=== PATIENT | female | born 1940 | race Caucasian/White ===

== ENCOUNTER → 2019-10-09 10:51 | Outpatient (CLI) | payer MEDICARE, OTHER, SELFPAY ==
--- NOTE | ~2019-10-09 | XR_ITS ---
EXAMINATION: XR foot RT min 3V DATE: 10/09/2019 11:10 INDICATION: Right fifth toe fracture follow-up TECHNIQUE: Dorsoplantar, lateral, and 2 oblique views of the right foot were obtained. COMPARISON: 08/25/2019 FINDINGS: Again seen is an oblique extra-articular fracture of the distal diaphysis of the right fift h proximal phalanx. The alignment is anatomic. There is subtle increase in calcified callus at the fr acture site. Mild adjacent soft tissue swelling is present. There is polyarticular osteoarthritis of the interphalangeal joints and at the first metatarsophalangeal joint. A plantar calcaneal enthesophy te is noted. IMPRESSION: 1. Fracture of the fifth proximal phalanx with routine healing. Reviewed, dictated and finalized at location A. PRODUCTION ASSISTANT
== END ==
PROVIDERS: PCP Family Medicine; Visit Provider Family Medicine
DX: S92.501D Displaced unspecified fracture of right lesser toe(s), subsequent encounter for fracture with routine healing (principal); X58.XXXD Exposure to other specified factors, subsequent encounter
CPT/HCPCS: 73630

== ENCOUNTER 2019-12-07 15:09 | Outpatient (CLI) | payer MEDICARE, OTHER, SELFPAY ==
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
== END 2019-12-07 15:10 | disposition home or self-care (01) ==
LOC: ANHIMG 15:22
PROVIDERS: PCP Family Medicine; Visit Provider Physician Assistant
DX: R42 Dizziness and giddiness (principal); R51 Headache; H53.9 Unspecified visual disturbance
CPT/HCPCS: 70450

== ENCOUNTER 2020-01-01 10:47 | Outpatient (CLI) | payer MEDICARE, OTHER, SELFPAY ==
[2020-01-01 11:17] LABS: Blood Urea Nitrogen 18 mg/dL (7-17); Calcium 9.3 mg/dL (8.4-10.2); Carbon Dioxide 26 mmol/L (22-30); Chloride 104 mmol/L (98-107); Estimated Glomerular Filt Rate > 60; Glucose 176 mg/dL (65-105); Potassium 3.5 mmol/L (3.4-5.0); Sodium 140 mmol/L (137-145)
== END 2020-01-01 10:48 | disposition home or self-care (01) ==
PROVIDERS: Anesthesiology; PCP Family Medicine; Visit Provider Orthopaedic Surgery
DX: E11.9 Type 2 diabetes mellitus without complications (principal)
CPT/HCPCS: 36415; 80048

== ENCOUNTER 2020-01-08 00:01 | Outpatient (CLI) | payer MEDICARE, OTHER, SELFPAY ==
[2020-01-08 17:26] LABS: SARS-CoV-2 RNA PCR Negative
== END 2020-01-08 00:02 | disposition home or self-care (01) ==
LOC: ANHCOVIDDT 00:02
PROVIDERS: PCP Family Medicine; Visit Provider Orthopaedic Surgery
DX: Z01.818 Encounter for other preprocedural examination (principal); Z11.59 Encounter for screening for other viral diseases
CPT/HCPCS: 87635; C9803; U0003

== ENCOUNTER 2020-01-11 00:13 | Day surgery (SDC) | payer MEDICARE, OTHER, SELFPAY ==
[2019-12-31 13:38] VITALS: BMI 27.8
[2020-01-11] VITALS (9 sets, daily range): BP systolic 123–147; BP diastolic 52–77; PULSE 69–95; RESP 13–18; TEMP 36.2–36.4; O2SAT 94–100
--- NOTE | 2020-01-11 08:13 | WPDANESEPPF ---
Anes - Initial Pre Proc Eval Procedure: Operation Date: 01/11/20 12:00 Proposed Procedures p Debridement of Right Trochanteric Bursa - Reinier Moser MD Date/Time: 01/11/20 08:13 Surgeon: Reinier Moser MD Pre Op Diagnosis: Right Hip Trochanter Bursitis Patient Data Age: 79 Gender: F Height: 1.65 m Weight: 75.75 kg Allergies Allergy/AdvReac Type Severity Reaction Status Date / Time dimenhydrinate Allergy Unknown THROAT Verified 01/11/20 10:57 SWELLING iodine Allergy Unknown Rash Verified 01/11/20 10:57 Contrast Media Allergy Intermediate RASH Uncoded 01/11/20 10:57 Home Medications Medication Instructions Recorded Confirmed Type levothyroxine 50 mcg tablet 50 mcg PO DAILY #90 tablet 07/13/19 12/31/19 Rx PreserVision AREDS-2 1 tab-cap PO DAILY 08/16/19 12/31/19 History acetaminophen [Tylenol Arthritis 650 mg PO PRN MDD PAIN 08/16/19 12/31/19 History Pain] amlodipine-atorvastatin 1 tablet PO DAILY 08/16/19 12/31/19 History apixaban [Eliquis] 5 mg PO BID 08/16/19 12/31/19 History glipizide 5 mg PO DAILY 08/16/19 12/31/19 History insulin detemir U-100 [Levemir 14 unit SUBCUT QNOON 08/16/19 12/31/19 History FlexTouch U-100 Insuln] irbesartan 75 mg PO DAILY 08/16/19 12/31/19 History isosorbide mononitrate 60 mg PO DAILY 08/16/19 12/31/19 History metoprolol succinate 25 mg PO DAILY 08/16/19 12/31/19 History nitroglycerin 0.4 mg SUBLINGUAL PRN PRN 08/16/19 12/31/19 History tramadol 50 mg PO Q6H PRN 08/16/19 12/31/19 History escitalopram oxalate 10 mg tablet 10 mg PO DAILY #90 tablet 08/24/19 12/31/19 Rx hydrochlorothiazide 25 mg tablet 25 mg PO DAILY #90 tablet 09/02/19 12/31/19 Rx Patient hx anesthesia problems: none Family hx anesthesia problems: none PMFSH Past Medical History Medical History Afib Anemia Anxiety Arthritis Bladder cancer Bowel obstruction CAD (coronary artery disease) Cataracts, bilateral Chronic right hip pain Closed fracture of proximal phalanx of lesser toe of right foot Depression Diabetes a1c was 7.17 aug 2019 Diverticulitis Dizziness DVT (deep venous thrombosis) Elbow fracture, left GERD (gastroesophageal reflux disease) Headache Heart attack Hemoglobin A1C between 7% and 9% indicating borderline diabetic control Hepatitis A History of blood transfusion History of rectal polyps HTN (hypertension) Hyperlipidemia Hypothyroid IBS (irritable bowel syndrome) Macular degeneration Menieres disease Seasonal allergies Skin cancer Toe fracture Vision changes Surgical History Surgical History (Updated 01/11/20 @ 11:02 by Hemanth Bella MD) H/O local excision of skin lesion History of angioplasty History of appendectomy History of back surgery History of bladder surgery History of brain surgery History of cardiac catheterization History of cataract surgery History of coronary artery stent placement History of coronary artery stent placement History of foot surgery Left History of hernia repair History of hip surgery Right hip abductor repair History of hysterectomy History of ileal conduit History of tonsillectomy Family History Family History Mother Diabetes mellitus Hypertension Family history of coronary artery disease Sibling Diabetes mellitus Hypertension Family history of malignant neoplasm Carcinoma of colon Family history of Alzheimer's disease Family history of malignant neoplasm of bone Family history of coronary artery disease Social History Social History Years smoked: 12 Smoking status: Former smoker Tobacco type: cigarettes Second hand tobacco smoke exposure: No Smoking end date: 08/12/99 Alcohol intake: current Substance use: never Substance use type: does not use Additional living arrangements comments: Spouse- Samir Escobar Gender i
[2020-01-11] MEDS: LACTATED RINGERS 1,000 ML 30 ML IV CONT ×2 (10:30→13:55)
--- NOTE | 2020-01-11 10:36 | WPDHPUPDATE1 ---
History and Physical Update Update Date/Time: 01/11/20 10:36 History and Physical has been reviewed, including an updated exam of the patient. There are NO changes in the patient's condition. Risks, benefits, and alternatives have been discussed and questions answered. Patient agrees to proceed with procedure.
[2020-01-11 11:17] LABS: Glucose Point of Care 166 (65-105)
[2020-01-11] MEDS: ceFAZolin 2 GM/D5W 50 ML 2 GM/50 ML BAG IVPB (12:05)
[2020-01-11] MEDS: BUPIVACAINE/EPINEPHRINE 0.25% 50 ML VIAL INFILTRATE (12:39)
--- NOTE | 2020-01-11 13:29 | PM.PROC ---
Procedure Note - Detailed Date of procedure: 01/11/20 Pre-op diagnosis: Right Hip Trochanter Bursitis Post-op diagnosis: same Procedure performed: Debridement right hip trochanteric bursa Description of procedure: The patient was identified proper site identified. She was taken to the operating room and transferred to the OR table taking care to pad her torso and extremities. After general anesthetic induction and intubation she was positioned in the left lateral decubitus position taking care to pad her torso and extremities. The right hip and thigh were prepped and draped in the usual sterile fashion. The distal portion of her scar was utilized. The subcutaneous tissue was infiltrated with 10 cc of 0.25% Marcaine and epinephrine solution. The incision was reopened and subcutaneous tissue sharply dissected full thickness down to the ITB band which then was divided in line with the incision. There is quite a bit of adherent scar tissue between the anterior band of the greater trochanter. A wound was irrigated with sterile saline solution. The ITB band was reapproximated with 2. Vicryl suture and the sub Q deeper layers with 0 looped PDS. Two 0 strata fix and tissue adhesive used for the skin. Sterile dressing was applied. She tolerated the procedure well was awakened, extubated taken recovery in stable condition; there were no known intraoperative complications. She received perioperative antibiotic. Surgeon: Reinier Moser MD Estimated blood loss (mL): 5 Drains: No Packing: No Pathology: none sent Complications: No immediate complications Condition: stable Disposition: PACU
[2020-01-11 16:56] LABS: Glucose Point of Care 126 (65-105)
== END 2020-01-11 15:10 | disposition home or self-care (01) ==
PROVIDERS: PCP Family Medicine; Visit Provider Orthopaedic Surgery
PROC: (CPT 27299; principal; 2020-01-11 12:00)
DX: M70.61 Trochanteric bursitis, right hip (principal); I48.91 Unspecified atrial fibrillation; I25.10 Atherosclerotic heart disease of native coronary artery without angina pectoris; I10 Essential (primary) hypertension; D64.9 Anemia, unspecified; E11.9 Type 2 diabetes mellitus without complications; E03.9 Hypothyroidism, unspecified; E78.5 Hyperlipidemia, unspecified; F41.8 Other specified anxiety disorders; K58.9 Irritable bowel syndrome, unspecified; Z95.5 Presence of coronary angioplasty implant and graft; Z79.4 Long term (current) use of insulin; Z79.01 Long term (current) use of anticoagulants; Z85.51 Personal history of malignant neoplasm of bladder; Z86.718 Personal history of other venous thrombosis and embolism; Z87.891 Personal history of nicotine dependence
CPT/HCPCS: 27299; J0690; J2405; J2704; J3010; J7120

== ENCOUNTER 2020-03-29 10:21 | Outpatient (CLI) | payer MEDICARE, OTHER, SELFPAY ==
[2020-03-29 11:11] LABS: Hemoglobin A1C 7.9 % (<5.7)
[2020-03-29 11:13] LABS: Alanine Aminotransferase 20 U/L (4-35); Alkaline Phosphatase 64 U/L (38-126); Anion Gap 10 mmol/L (8-16); Aspartate Amino Transferase 24 U/L (14-36); Bilirubin,Total 0.4 mg/dL (0.2-1.3); Blood Urea Nitrogen 24 mg/dL (7-17); Calcium 9.4 mg/dL (8.4-10.2); Carbon Dioxide 24 mmol/L (22-30); Chloride 104 mmol/L (98-107); Estimated Glomerular Filt Rate 60; Glucose 293 mg/dL (65-105); Potassium 3.7 mmol/L (3.4-5.0); Sodium 138 mmol/L (137-145)
== END 2020-03-29 10:22 | disposition home or self-care (01) ==
PROVIDERS: PCP Family Medicine; Visit Provider Physician Assistant
DX: E03.9 Hypothyroidism, unspecified (principal); I10 Essential (primary) hypertension; Z79.4 Long term (current) use of insulin; E11.9 Type 2 diabetes mellitus without complications
CPT/HCPCS: 36415; 80053; 83036; 84443

== ENCOUNTER 2020-05-24 10:24 | Outpatient (CLI) | payer MEDICARE, OTHER, SELFPAY | END 2020-05-24 10:25 | disposition home or self-care (01) | LOC: ANHLAB 10:27 | PROVIDERS: PCP Family Medicine; Visit Provider Physician Assistant | DX: E03.9 Hypothyroidism, unspecified (principal) | CPT/HCPCS: 36415; 84443 ==

== ENCOUNTER 2020-09-14 11:39 | Outpatient (CLI) | payer MEDICARE, OTHER, SELFPAY ==
[2020-09-14 11:59] LABS: Basophils Absolute Auto 0.1 K/mm3 (0.0-0.1); Eosinophils Absolute Auto 0.3 K/mm3 (0-0.3); Eosinophils Percent Auto 3.9 % (0-4.4); Hematocrit 43.3 % (37.0-47.0); Hemoglobin 14.7 g/dL (12.0-15.0); Immature Granulocyte Absolute 0.01 K/mm3 (0.00-0.031); Immature Granulocyte Percent A 0.1 % (0-0.5); Lymphocytes Absolute Auto 1.59 K/mm3 (0.9-3.2); Mean Corpuscular HGB Conc 33.9 g/dl (32-36); Mean Corpuscular Hemoglobin 29.6 pg (26-34); Mean Corpuscular Volume 87.1 fl (80-100); Mean Platelet Volume 9.3 fl (7.4-10.4); Monocytes Absolute Auto 0.4 K/mm3 (0.1-0.6); Monocytes Percent Auto 6.4 % (2.6-8.5); Neutrophils Absolute Auto 4.5 K/mm3 (1.3-6.7); Neutrophils Percent Auto 65.6 % (45.5-73.1); Platelet Count Result 268 k/mm3 (150-375); Red Blood Count 4.97 M/mm3 (4.2-5.4); Red Cell Distribution Width 12.9 % (11.5-14.5); White Blood Count 6.9 K/mm3 (4.5-10.0)
[2020-09-14 12:10] LABS: Anion Gap 9 mmol/L (8-16); Blood Urea Nitrogen 21 mg/dL (7-17); Calcium 9.2 mg/dL (8.4-10.2); Carbon Dioxide 26 mmol/L (22-30); Chloride 105 mmol/L (98-107); Estimated Glomerular Filt Rate 60; Glucose 286 mg/dL (65-105); Potassium 3.9 mmol/L (3.4-5.0); Sodium 140 mmol/L (137-145)
== END 2020-09-14 11:40 | disposition home or self-care (01) ==
LOC: ANHLAB 11:44
PROVIDERS: PCP Family Medicine; Visit Provider Nurse Practitioner Adult Health
DX: R06.00 Dyspnea, unspecified (principal)
CPT/HCPCS: 36415; 80048; 85025

== ENCOUNTER 2020-10-07 11:36 | Outpatient (CLI) | payer MEDICARE, OTHER, SELFPAY ==
[2020-10-07 12:16] LABS: Hemoglobin A1C 8.6 % (<5.7)
[2020-10-07 12:20] LABS: Alanine Aminotransferase 21 U/L (4-35); Albumin Level 4.1 g/dL (3.5-5.1); Alkaline Phosphatase 61 U/L (38-126); Anion Gap 11 mmol/L (8-16); Aspartate Amino Transferase 28 U/L (14-36); Bilirubin,Total 0.7 mg/dL (0.2-1.3); Blood Urea Nitrogen 20 mg/dL (7-17); Carbon Dioxide 25 mmol/L (22-30); Chloride 104 mmol/L (98-107); Estimated Glomerular Filt Rate 53; Glucose 288 mg/dL (65-105); Potassium 3.7 mmol/L (3.4-5.0); Sodium 140 mmol/L (137-145)
== END 2020-10-07 11:37 | disposition home or self-care (01) ==
PROVIDERS: PCP Family Medicine; Visit Provider Physician Assistant
DX: E03.9 Hypothyroidism, unspecified (principal); E11.9 Type 2 diabetes mellitus without complications; I11.9 Hypertensive heart disease without heart failure; Z79.4 Long term (current) use of insulin
CPT/HCPCS: 36415; 80053; 83036; 84443

== ENCOUNTER 2020-11-25 13:36 | Emergency (ER) | payer MEDICARE, OTHER, SELFPAY ==
--- NOTE | ~2020-11-25 | XR_ITS ---
EXAMINATION: XR knee RT 3V EXAM DATE: 11/25/2020 14:12 INDICATION: New onset pain and swelling since this morning. TECHNIQUE: Three projections of the right knee. There is no prior study for comparison. FINDINGS: No evidence osteochondral defect or joint body in the right knee joint. There is mild men iscal chondrocalcinosis. Chondrocalcinosis can be an age related finding, but with other possible santo ologies including CPPD, parathyroid disorders, hemochromatosis, gout. There is mild to moderate prima ry osteoarthritis. There are no acute fractures or dislocations identified. There is no subcutaneous gas. There is sma ll joint effusion. There are no radiopaque foreign bodies. IMPRESSION: 1. Right knee exam without acute osseous findings. 2. Small joint effusion. 3. Chondrocalcinosis. 4. Osteoarthritis. Reviewed, dictated and finalized at location A.
[2020-11-25 13:39] VITALS: BP 149/79; PULSE 88; RESP 16; TEMP 36.6; O2SAT 98
[2020-11-25 15:34] VITALS: PULSE 85; RESP 18; O2SAT 98
[2020-11-25 15:35] VITALS: BP 139/80
--- NOTE | 2020-11-25 15:57 | ED.GENADULT ---
HPI - General Adult General Chief complaint: Extremity Injury, Lower <ANA MARIA Perez Last Filed: 11/25/20 16:03> Stated complaint: R knee pain <ANA MARIA Perez Last Filed: 11/25/20 16:03> Time Seen by Provider: 11/25/20 15:22 <ANA MARIA Perez Last Filed: 11/25/20 16:03> Source: patient and old records reviewed <ANA MARIA Perez Last Filed: 11/25/20 16:03> Mode of arrival: ambulatory <ANA MARIA Perez Last Filed: 11/25/20 16:03> Limitations: no limitations <ANA MARIA Perez Last Filed: 11/25/20 16:03> History of Present Illness HPI narrative: Patient is a 80-year-old female who presented to emergency department for evaluation of right hip and knee pain patient with history of chronic hip and knee pain and low back pain followed by orthopedics primary care and pain specialist patient notes today the pain had increased she has not taken anything for her pain patient on arrival is in no distress presents per private vehicle with her patient denies injury trauma or illness <ANA MARIA Perez Last Filed: 11/25/20 16:03> Related Data Home medications: Home Medications Medication Instructions Recorded Confirmed Eliquis 5 mg PO BID 08/16/19 10/07/20 PreserVision AREDS-2 1 tab-cap PO DAILY 08/16/19 10/07/20 isosorbide mononitrate 60 mg PO DAILY 08/16/19 10/07/20 metoprolol succinate 25 mg PO DAILY 08/16/19 10/07/20 nitroglycerin 0.4 mg SUBLINGUAL PRN PRN 08/16/19 10/07/20 <ANAM ARIA Perez Last Filed: 11/25/20 16:03> Allergies/adverse reactions: Allergies Allergy/AdvReac Type Severity Reaction Status Date / Time dimenhydrinate Allergy Unknown THROAT Verified 11/25/20 15:35 SWELLING iodine Allergy Unknown Rash Verified 11/25/20 15:35 Contrast Media Allergy Intermediate RASH Uncoded 11/25/20 15:35 <ANA MARIA Perez Last Filed: 11/25/20 16:03> Review of Systems Review of Systems: All systems reviewed & are unremarkable except as noted in HPI and below <Talon Maldonado PA-C - Last Filed: 11/25/20 16:03> [facility] Past Medical History Medical History: Medical History (Updated 11/25/20 @ 16:02 by Talon Maldonado PA-C) Afib Anemia Anxiety Arthritis Bladder cancer Bowel obstruction CAD (coronary artery disease) Cataracts, bilateral Chronic right hip pain Closed fracture of proximal phalanx of lesser toe of right foot Depression Diabetes a1c was 7.17 aug 2019 Diverticulitis Dizziness DVT (deep venous thrombosis) Elbow fracture, left GERD (gastroesophageal reflux disease) Headache Heart attack Hemoglobin A1C between 7% and 9% indicating borderline diabetic control Hepatitis A History of blood transfusion History of rectal polyps HTN (hypertension) Hyperlipidemia Hypothyroid IBS (irritable bowel syndrome) Macular degeneration Menieres disease Seasonal allergies Skin cancer Toe fracture Vision changes <Talon Maldonado PA-C - Last Filed: 11/25/20 16:03> Surgical History Surgical History: Surgical History Greater trochanteric bursitis of right hip surgical re-debridement January 2020 H/O local excision of skin lesion History of angioplasty History of appendectomy History of back surgery History of bladder surgery History of brain surgery History of cardiac catheterization History of cataract surgery History of coronary artery stent placement History of coronary artery stent placement History of foot surgery Left History of hernia repair History of hip surgery Right hip abductor repair History of hysterectomy History of ileal conduit History of tonsillectomy <Talon Maldonado PA-C - Last Filed: 11/25/20 16:03> Family History Family History: Family History Mother Diabetes mellitus Hypertension Family history of coronary artery di
[2020-11-25 16:21] VITALS: BP 131/76; PULSE 82; RESP 18; O2SAT 96
[2020-11-25] MEDS: HYDROcodone/acetaminophen (*CRX) 5-325 MG TABLET 1 TAB PO (16:22)
[2020-11-25] MEDS: METAXALONE 800 MG TABLET PO (16:22)
[2020-11-25] MEDS: LIDOCAINE 5% PATCH 1 PATCH TRANSDERM (16:22)
== END 2020-11-25 16:46 | disposition home or self-care (01) ==
PROVIDERS: Emergency Provider Emergency Medicine; PCP Family Medicine
DX: M25.561 Pain in right knee (principal); M25.551 Pain in right hip; I48.91 Unspecified atrial fibrillation; Z79.01 Long term (current) use of anticoagulants; I25.10 Atherosclerotic heart disease of native coronary artery without angina pectoris; E11.9 Type 2 diabetes mellitus without complications; K21.9 Gastro-esophageal reflux disease without esophagitis; I10 Essential (primary) hypertension; E03.9 Hypothyroidism, unspecified; E78.5 Hyperlipidemia, unspecified; H35.30 Unspecified macular degeneration; H81.09 Meniere's disease, unspecified ear; M17.11 Unilateral primary osteoarthritis, right knee; Z85.51 Personal history of malignant neoplasm of bladder; Z85.828 Personal history of other malignant neoplasm of skin; Z86.718 Personal history of other venous thrombosis and embolism; I25.2 Old myocardial infarction; Z87.19 Personal history of other diseases of the digestive system; Z79.4 Long term (current) use of insulin; Z95.5 Presence of coronary angioplasty implant and graft; Z98.49 Cataract extraction status, unspecified eye; Z87.891 Personal history of nicotine dependence; M11.261 Other chondrocalcinosis, right knee
CPT/HCPCS: 73562; 99283; A9270

== ENCOUNTER 2021-07-24 15:02 | Emergency (ER) | payer MEDICARE, OTHER, SELFPAY ==
[2021-07-24 15:16] VITALS: BP 132/82; PULSE 105; RESP 18; TEMP 36.8; O2SAT 100
[2021-07-24 15:18] VITALS: BP 132/82; PULSE 105; RESP 18; TEMP 36.8; O2SAT 100
--- NOTE | 2021-07-24 15:27 | ED.NAVMDI ---
HPI - Nausea/Vomiting/Diarrhea General Chief complaint: Nausea/Vomiting/Diarrhea Stated complaint: Nausea Time Seen by Provider: 07/24/21 15:20 Source: patient, RN notes reviewed and old records reviewed Mode of arrival: ambulatory History of Present Illness HPI Narrative: 80-year-old female presents to the [facility] with 4 to 6 weeks of increasing nausea/ vomiting. Patient states that she tried going out to dinner last night and felt very sick, vomiting. Tried drinking 7-Up this morning and states she was unable to keep that down. She is concerned for kidney issues, dehydration. Patient reports a 20+ lb weight loss Patient appears acute on chronic illness. Patient denies any abdominal pain or chest pain. States she does have chronic right hip pain due to previous surgeries done by her pen. Patient reports that she has brought this up to her doctor a couple of weeks ago and states they did not think anything of it. Related Data Home Medications Medication Instructions Recorded Confirmed Eliquis 5 mg PO BID 08/16/19 02/08/21 PreserVision AREDS-2 1 tab-cap PO DAILY 08/16/19 02/08/21 isosorbide mononitrate 60 mg PO DAILY 08/16/19 02/08/21 metoprolol succinate 25 mg PO DAILY 08/16/19 02/08/21 nitroglycerin 0.4 mg SUBLINGUAL PRN PRN 08/16/19 02/08/21 Allergies Allergy/AdvReac Type Severity Reaction Status Date / Time dimenhydrinate Allergy Unknown THROAT Verified 02/08/21 14:26 SWELLING iodine Allergy Unknown Rash Verified 02/08/21 14:26 Contrast Media Allergy Intermediate RASH Uncoded 02/08/21 14:26 Review of Systems Review of Systems: All systems reviewed & are unremarkable except as noted in HPI and below Constitutional: Constitutional: Reports as per HPI, Denies chills, Reports fatigue, Denies fever(s) and Reports weakness Eyes: Eyes: Reports no additional eye complaints ENT: Reports as per HPI Comments: Very dry mucosa Cardiovascular: Cardiovascular: Reports no additional cardiovascular complaints and Denies chest pain Respiratory: Respiratory: Reports no additional respiratory complaints, Denies cough and Denies dyspnea Gastrointestinal: Gastrointestinal: Reports as per HPI, Denies abdominal pain, Reports nausea and Reports vomiting Genitourinary: Genitourinary: Reports no additional female genitourinary complaints Musculoskeletal: Musculoskeletal: Reports as per HPI and Reports arthralgias (Right hips dates it is chronic) Integumentary/Breasts: Skin/Breast: Reports system reviewed and no additional complaints, except as docu Neurologic: Reports system reviewed and no additional complaints, except as documented Psychiatric: Psychiatric: Reports no additional psychiatric complaints Allergic/Immunologic: Allergic/Immunologic: Reports no additional allergic/immunologic complaints [facility] Past Medical History Medical History (Updated 07/24/21 @ 17:53 by Jemima Philip) Afib Anemia Anxiety Arthritis Bladder cancer Bowel obstruction CAD (coronary artery disease) Cataracts, bilateral Chronic right hip pain Closed fracture of proximal phalanx of lesser toe of right foot Depression Diabetes a1c was 7.17 aug 2019 Diverticulitis Dizziness DVT (deep venous thrombosis) Elbow fracture, left GERD (gastroesophageal reflux disease) Headache Heart attack Hemoglobin A1C between 7% and 9% indicating borderline diabetic control Hepatitis A History of blood transfusion History of rectal polyps HTN (hypertension) Hyperlipidemia Hypothyroid IBS (irritable bowel syndrome) Macular degeneration Menieres disease Seasonal allergies Skin cancer Toe fracture Vision changes Surgical History Surgical History Greater trochanteric bursitis of right hip surgical re-debridement January 2020 H/O local excision of skin lesion History of angioplasty History of appendectomy History of back surgery History of bladder surgery History of brain surgery History of c
[2021-07-24 15:29] LABS: Glucose Point of Care 133 mg/dl (65-105)
== END 2021-07-24 15:30 | disposition home or self-care (01) ==
PROVIDERS: Emergency Provider Nurse Practitioner; PCP Family Medicine
DX: E86.0 Dehydration (principal); R11.2 Nausea with vomiting, unspecified; I48.91 Unspecified atrial fibrillation; I25.10 Atherosclerotic heart disease of native coronary artery without angina pectoris; E03.9 Hypothyroidism, unspecified; E11.9 Type 2 diabetes mellitus without complications; I10 Essential (primary) hypertension; E78.5 Hyperlipidemia, unspecified; Z86.718 Personal history of other venous thrombosis and embolism; Z87.891 Personal history of nicotine dependence
CPT/HCPCS: 82948; 99212; G0463

== ENCOUNTER 2021-07-24 15:50 | Emergency (ER) | payer MEDICARE, OTHER, SELFPAY ==
[2021-07-24] VITALS (12 sets, daily range): BP systolic 102–164; BP diastolic 80–90; PULSE 74–96; RESP 12–25; TEMP 36.3–37.1; O2SAT 89–99
--- NOTE | 2021-07-24 22:25 | ED.GENADULT ---
HPI - General Adult General Chief complaint: Nausea/Vomiting/Diarrhea Stated complaint: Nausea,Vomiting Time Seen by Provider: 07/24/21 22:13 History of Present Illness HPI narrative: 80-year-old female presented to the emergency department for evaluation of intermittent diarrhea for the last month. Patient states that she has also had intermittent nausea vomiting and diarrhea worsening over the last few days. Patient states that have began to improve but she went out to dinner on Saturday. After having a steak dinner on Saturday she began having onset of nausea and vomiting. Patient states she also did have some onset of diarrhea. Patient denies any acute abdominal pain. Patient reports she has had issues with her bowels previously and has had multiple colonoscopies. Related Data Home Medications Medication Instructions Recorded Confirmed Eliquis 5 mg PO BID 08/16/19 02/08/21 PreserVision AREDS-2 1 tab-cap PO DAILY 08/16/19 02/08/21 isosorbide mononitrate 60 mg PO DAILY 08/16/19 02/08/21 metoprolol succinate 25 mg PO DAILY 08/16/19 02/08/21 nitroglycerin 0.4 mg SUBLINGUAL PRN PRN 08/16/19 02/08/21 Allergies Allergy/AdvReac Type Severity Reaction Status Date / Time dimenhydrinate Allergy Unknown THROAT Verified 07/24/21 22:39 SWELLING iodine Allergy Unknown Rash Verified 07/24/21 22:39 Contrast Media Allergy Intermediate RASH Uncoded 07/24/21 22:39 Review of Systems Review of Systems: CONSTITUTIONAL: Denies fever, chills, or sweats. EYES: Denies visual changes, redness, or discharge. ENT: Denies rhinorrhea, congestion, sore throat, or otalgia. CARDIOVASCULAR: Denies chest pain, palpitations, or edema. RESPIRATORY: Denies cough or dyspnea. GASTROINTESTINAL: Nausea vomiting diarrhea GENITOURINARY: Denies dysuria or hematuria. SKIN: Denies rash or itching. MUSCULOSKELETAL: Denies back pain, joint pain, or myalgia. NEUROLOGIC: Denies headache, numbness, or weakness. PSYCHIATRIC: Denies anxiety or depression. [facility] Past Medical History Medical History (Updated 07/26/21 @ 00:00 by Background Daemon) Afib Anemia Anxiety Arthritis Bladder cancer Bowel obstruction CAD (coronary artery disease) Cataracts, bilateral Chronic right hip pain Closed fracture of proximal phalanx of lesser toe of right foot Depression Diabetes a1c was 7.17 aug 2019 Diverticulitis Dizziness DVT (deep venous thrombosis) Elbow fracture, left GERD (gastroesophageal reflux disease) Headache Heart attack Hemoglobin A1C between 7% and 9% indicating borderline diabetic control Hepatitis A History of blood transfusion History of rectal polyps HTN (hypertension) Hyperlipidemia Hypothyroid IBS (irritable bowel syndrome) Macular degeneration Menieres disease Seasonal allergies Skin cancer Toe fracture Vision changes Surgical History Surgical History Greater trochanteric bursitis of right hip surgical re-debridement January 2020 H/O local excision of skin lesion History of angioplasty History of appendectomy History of back surgery History of bladder surgery History of brain surgery History of cardiac catheterization History of cataract surgery History of coronary artery stent placement History of coronary artery stent placement History of foot surgery Left History of hernia repair History of hip surgery Right hip abductor repair History of hysterectomy History of ileal conduit History of tonsillectomy Family History Family History Mother Diabetes mellitus Hypertension Family history of coronary artery disease Sibling Diabetes mellitus Hypertension Family history of malignant neoplasm Carcinoma of colon Family history of Alzheimer's disease Family history of malignant neoplasm of bone Family history of coronary artery disease Social History Social History (Reviewed 11/25/20 @ 16:00 by Talon Maldonado
[2021-07-24 22:39] LABS: Basophils Absolute Auto 0.1 K/mm3 (0.0-0.1); Basophils Percent Auto 0.8 % (0.2-1.2); Eosinophils Absolute Auto 0.3 K/mm3 (0-0.3); Eosinophils Percent Auto 3.4 % (0-4.4); Hematocrit 44.1 % (37.0-47.0); Hemoglobin 14.5 g/dL (12.0-15.0); Immature Granulocyte Absolute 0.03 K/mm3 (0.00-0.031); Immature Granulocyte Percent A 0.3 % (0-0.5); Lymphocytes Percent Auto 21.3 % (18.3-44.2); Mean Corpuscular HGB Conc 32.9 g/dl (32-36); Mean Corpuscular Hemoglobin 29.9 pg (26-34); Mean Corpuscular Volume 90.9 fl (80-100); Mean Platelet Volume 9.6 fl (7.4-10.4); Monocytes Absolute Auto 0.8 K/mm3 (0.1-0.6); Monocytes Percent Auto 8.4 % (2.6-8.5); Neutrophils Absolute Auto 5.9 K/mm3 (1.3-6.7); Neutrophils Percent Auto 65.8 % (45.5-73.1); Platelet Count Result 275 k/mm3 (150-375); Red Blood Count 4.85 M/mm3 (4.2-5.4); Red Cell Distribution Width 14.1 % (11.5-14.5); White Blood Count 8.9 K/mm3 (4.5-10.0)
[2021-07-24 22:50] LABS: Lactic Acid Reflex 1.2 mmol/L (0.7-2.1)
[2021-07-24 22:51] LABS: Anion Gap 14 mmol/L (8-16); Carbon Dioxide 15 mmol/L (22-30); Chloride 113 mmol/L (98-107); Potassium 3.8 mmol/L (3.4-5.0); Sodium 142 mmol/L (137-145)
[2021-07-24 22:52] LABS: Alanine Aminotransferase 19 U/L (4-35); Albumin Level 4.7 g/dL (3.5-5.1); Alkaline Phosphatase 75 U/L (38-126); Aspartate Amino Transferase 31 U/L (14-36); Bilirubin,Total 0.8 mg/dL (0.2-1.3); Blood Urea Nitrogen 30 mg/dL (7-17); Calcium 10.2 mg/dL (8.4-10.2); Estimated CRCL calculation 32 ml/min; Estimated Glomerular Filt Rate 48; Glucose 140 mg/dL (65-110)
[2021-07-24] MEDS: ONDANSETRON INJ 4 MG/2 ML VIAL IV PUSH (23:03)
--- NOTE | 2021-07-24 23:26 | PC.NURSE ---
Pt attempting PO challenge with crackers and water at this time.
--- NOTE | 2021-07-24 23:32 | PC.NURSE ---
urine collected and sent from ileal conduit
--- NOTE | 2021-07-24 23:47 | PC.NURSE ---
PO challenge successful, no nausea vomiting
[2021-07-24 23:49] LABS: Add Urine Microscopic? YES; Appearance Urine Cloudy (Clear); Bacteria Urine Trace /hpf; Bilirubin Urine Negative (Negative); Blood Urine 1+ (Negative); Budding Yeast Urine Present /hpf; Color Urine Red (Yellow); Glucose Urine UA Negative (Negative); Ketones Urine Negative (Negative); Leukocyte Esterase Ur 2+ LEU/UL (Negative); Mucus Urine Moderate /lpf; Nitrate Urine Negative (Negative); Protein Urine 1+ mg/dL (Negative); Specific Grav Ur 1.009 (1.001-1.035); Squamous Epithelial Cell Urine Rare /hpf (Few); Urobilinogen Urine Negative mg/dL (<2.0); WBC Urine >75 /hpf
[2021-07-25 00:01] VITALS: BP 149/77; PULSE 81; RESP 18; O2SAT 95
[2021-07-25 01:00] VITALS: BP 134/78; PULSE 82; RESP 20; O2SAT 96
[2021-07-25] MEDS: CEPHALEXIN 250 MG CAPSULE PO (01:42)
[2021-07-25 01:47] VITALS: BP 134/77; PULSE 93; RESP 14; O2SAT 98
== END 2021-07-25 01:47 | disposition home or self-care (01) ==
PROVIDERS: Emergency Provider Emergency Medicine; PCP Family Medicine
DX: B37.49 Other urogenital candidiasis (principal); R11.2 Nausea with vomiting, unspecified; I48.91 Unspecified atrial fibrillation; I25.10 Atherosclerotic heart disease of native coronary artery without angina pectoris; E11.9 Type 2 diabetes mellitus without complications; K21.9 Gastro-esophageal reflux disease without esophagitis; I10 Essential (primary) hypertension; E03.9 Hypothyroidism, unspecified; E78.5 Hyperlipidemia, unspecified; H35.30 Unspecified macular degeneration; H81.09 Meniere's disease, unspecified ear; M17.11 Unilateral primary osteoarthritis, right knee; I25.2 Old myocardial infarction; Z95.5 Presence of coronary angioplasty implant and graft; Z79.4 Long term (current) use of insulin; Z98.49 Cataract extraction status, unspecified eye; Z85.51 Personal history of malignant neoplasm of bladder; Z86.718 Personal history of other venous thrombosis and embolism; Z87.19 Personal history of other diseases of the digestive system; Z87.891 Personal history of nicotine dependence
CPT/HCPCS: 36415; 80053; 81001; 82948; 83605; 85025; 87077; 87086; 87186; 96374; 99284; A9270; J2405

== ENCOUNTER 2021-07-31 14:54 | Outpatient (CLI) | payer MEDICARE, OTHER, SELFPAY ==
[2021-07-31 15:48] LABS: Alanine Aminotransferase 20 U/L (4-35); Albumin Level 4.7 g/dL (3.5-5.1); Alkaline Phosphatase 83 U/L (38-126); Anion Gap 19 mmol/L (8-16); Aspartate Amino Transferase 24 U/L (14-36); Bilirubin,Total 0.6 mg/dL (0.2-1.3); Blood Urea Nitrogen 25 mg/dL (7-17); Calcium 10.4 mg/dL (8.4-10.2); Carbon Dioxide 15 mmol/L (22-30); Chloride 104 mmol/L (98-107); Estimated Glomerular Filt Rate 43; Glucose 170 mg/dL (65-110); Hemoglobin A1C 6.8 % (<5.7); Potassium 3.1 mmol/L (3.4-5.0); Sodium 138 mmol/L (137-145)
[2021-07-31 16:56] LABS: Add Urine Microscopic? YES; Appearance Urine Clear (Clear); Bacteria Urine Trace /hpf; Bilirubin Urine Negative (Negative); Blood Urine 1+ (Negative); Color Urine Yellow (Yellow); Glucose Urine UA Negative (Negative); Ketones Urine Negative (Negative); Leukocyte Esterase Ur Trace LEU/UL (Negative); Mucus Urine Rare /lpf; Nitrate Urine Negative (Negative); Protein Urine 1+ mg/dL (Negative); Specific Grav Ur 1.009 (1.001-1.035); Urobilinogen Urine Negative mg/dL (<2.0)
== END 2021-07-31 14:55 | disposition home or self-care (01) ==
LOC: ANHLAB 14:57
PROVIDERS: PCP Family Medicine; Visit Provider Family Medicine
DX: N39.0 Urinary tract infection, site not specified (principal); E11.9 Type 2 diabetes mellitus without complications
CPT/HCPCS: 36415; 80053; 81001; 83036

== ENCOUNTER 2021-08-04 08:14 | Outpatient (CLI) | payer MEDICARE, OTHER, SELFPAY ==
--- NOTE | ~2021-08-04 | US_ITS ---
EXAMINATION: US abdomen limited DATE: 08/04/2021 08:53 INDICATION: Right upper quadrant abdominal pain. Vomiting. TECHNIQUE: Multiple grayscale and Doppler ultrasound images of the abdomen were obtained. COMPARISON: Ultrasound 06/16/2018 FINDINGS: The visualized portions of the head, body, and tail of the pancreas are normal. The liver i s normal without focal lesion. No liver surface nodularity. There is normal flow in main portal vein. The gallbladder is normal in size. No gallstones or gallbladder wall thickening. There was no sonogr aphic Lopez sign. The common duct is normal and measures 5 mm. IMPRESSION: 1. Normal right upper quadrant ultrasound. Reviewed, dictated and finalized at location A. SIFICATION CASE MANAGER
== END 2021-08-04 08:15 | disposition home or self-care (01) ==
LOC: ANHIMG 08:16
PROVIDERS: PCP Family Medicine; Visit Provider Family Medicine
DX: R10.11 Right upper quadrant pain (principal); R11.0 Nausea
CPT/HCPCS: 76705

== ENCOUNTER 2021-08-21 09:24 | Outpatient (CLI) | payer MEDICARE, OTHER, SELFPAY ==
--- NOTE | ~2021-08-21 | NM_ITS ---
EXAMINATION: NM hepatobiliary wo pharm DATE: 08/21/2021 13:22 INDICATION: Right upper quadrant abdominal pain. COMPARISON: Ultrasound 08/04/2021 TECHNIQUE: 4.1 mCi Tc-99m mebrofenin (Choletec) was administered intravenously. Scintigraphic images of the abdomen were obtained for one hour. Then, the patient drank 8 oz Ensure, and imaging was cont inued for 60 minutes. FINDINGS: There is normal clearance of radiotracer from the blood pool. There is homogeneous tracer u ptake by the liver. Activity progresses to the bowel and gallbladder. Gallbladder ejection fraction (GBEF) was 34%. Note that with this technique, normal GBEF >= 33%. IMPRESSION: 1. Normal hepatobiliary scintigraphy. Reviewed, dictated and finalized at location B. P LAB TECHNICIAN
== END 2021-08-21 09:25 | disposition home or self-care (01) ==
PROVIDERS: PCP Family Medicine; Visit Provider Family Medicine
DX: R10.11 Right upper quadrant pain (principal)
CPT/HCPCS: 78226; A9537

== ENCOUNTER 2021-09-20 01:21 | Day surgery (SDC) | payer MEDICARE, OTHER, SELFPAY ==
[2021-08-31 14:17] VITALS: BMI 24.9
--- NOTE | 2021-09-13 10:33 | SUR.PREOP ---
Pt re-scheduled due to weather. She was originally scheduled for Sep 14. I instructed her to resume her ELiquist today and to stop it on SaturdaySep 17. Patient voiced understanding.
[2021-09-20 09:50] LABS: Glucose Point of Care 143 mg/dl (65-105)
[2021-09-20 09:53] VITALS: BP 118/68; PULSE 66; RESP 19; TEMP 36.4; O2SAT 97
[2021-09-20] MEDS: LACTATED RINGERS 1,000 ML 150 ML IV CONT (10:02)
--- NOTE | 2021-09-20 10:26 | WPDGICN ---
Assessment and Plan Assessment and plan (1) Nausea and vomiting: Code(s): R11.2 - Nausea with vomiting, unspecified Status: Acute Assessment and Plan: EGD with possible biopsy or dilatation or cautery. (2) Greater trochanteric bursitis of right hip: Code(s): M70.61 - Trochanteric bursitis, right hip Status: Acute Assessment and Plan: she states that when she has hip pain which she has been having lately that it will often cause her to be nauseated. (3) Weight loss: Code(s): R63.4 - Abnormal weight loss Status: Acute Assessment and Plan: she believes she has lost at least 15 lb since this began in June. (4) Diarrhea: Code(s): R19.7 - Diarrhea, unspecified Status: Acute Assessment and Plan: In June and July she was having quite a bit of diarrhea but that has resolved GI Consult Note Consult date/time: 09/20/21 10:26 HPI: Britney Escobar is a 80 year old female was referred for investigation of nausea and vomiting. This actually began in July. She had gone to the emergency room with complaints of nausea vomiting and diarrhea. She was examined with ultrasound which was normal. She in fact had a subsequent HIDA scan in nuclear medicine that also was normal. her hip had flared up. She has chronic bursitis in the right hip and she states that often she will get nauseated when she is having pain. She is also having diarrhea when she was nauseated but that has subsided. Review of Systems Review of Systems: All systems reviewed & are unremarkable except as noted in HPI and below PMFSH Past Medical History Medical History (Updated 09/20/21 @ 10:56 by Cristobal Sánchez MD) Afib Anemia Anxiety Arthritis Bladder cancer Bowel obstruction CAD (coronary artery disease) Cataracts, bilateral Chronic right hip pain Closed fracture of proximal phalanx of lesser toe of right foot Depression Diabetes a1c was 7.17 aug 2019 Diverticulitis Dizziness DVT (deep venous thrombosis) Elbow fracture, left GERD (gastroesophageal reflux disease) Headache Heart attack Hemoglobin A1C between 7% and 9% indicating borderline diabetic control Hepatitis A History of blood transfusion History of rectal polyps HTN (hypertension) Hyperlipidemia Hypothyroid IBS (irritable bowel syndrome) Macular degeneration Menieres disease Seasonal allergies Skin cancer Toe fracture Vision changes Surgical History Surgical History Greater trochanteric bursitis of right hip surgical re-debridement January 2020 H/O local excision of skin lesion History of angioplasty History of appendectomy History of back surgery History of bladder surgery History of brain surgery History of cardiac catheterization History of cataract surgery History of coronary artery stent placement History of coronary artery stent placement History of foot surgery Left History of hernia repair History of hip surgery Right hip abductor repair History of hysterectomy History of ileal conduit History of tonsillectomy Family History Family History Mother Diabetes mellitus Hypertension Family history of coronary artery disease Sibling Diabetes mellitus Hypertension Family history of malignant neoplasm Carcinoma of colon Family history of Alzheimer's disease Family history of malignant neoplasm of bone Family history of coronary artery disease Social History Social History Years smoked: 12 Smoking status: Former smoker Tobacco type: cigarettes Second hand tobacco smoke exposure: No Smoking end date: 08/12/99 Alcohol intake: current Alcohol use details: holidays Substance use: never Substance use type: does not use Living arrangements: alone Additional living arrangements comments: Spouse-
--- NOTE | 2021-09-20 11:02 | WPDANESEPPF ---
Anes - Initial Pre Proc Eval Procedure: Operation Date: 09/20/21 11:00 Proposed Procedures p Esophagogastroduodenoscopy - Cristobal Sánchez MD Date/Time: 09/20/21 11:02 Surgeon: Cristobal Sánchez MD Pre Op Diagnosis: nausea, vomiting Patient Data Age: 80 Gender: F Height: 1.65 m Weight: 69 kg Last Vital Signs Temp 97.6 F 09/20/21 09:53 Pulse 66 09/20/21 09:53 Resp 19 09/20/21 09:53 BP 118/68 09/20/21 09:53 Pulse Ox 97 09/20/21 09:53 Allergies Allergy/AdvReac Type Severity Reaction Status Date / Time dimenhydrinate Allergy Unknown THROAT Verified 09/20/21 09:51 SWELLING iodine Allergy Unknown Rash Verified 09/20/21 09:51 Contrast Media Allergy Intermediate RASH Uncoded 09/20/21 09:51 Home Medications Medication Instructions Recorded Confirmed Type Eliquis 5 mg PO BID 08/16/19 09/20/21 History PreserVision AREDS-2 1 tab-cap PO DAILY 08/16/19 09/20/21 History isosorbide mononitrate 60 mg PO DAILY 08/16/19 09/20/21 History metoprolol succinate 25 mg PO DAILY 08/16/19 09/20/21 History nitroglycerin 0.4 mg SUBLINGUAL PRN PRN 08/16/19 08/31/21 History escitalopram oxalate 10 mg tablet 10 mg PO DAILY #90 tablet 05/20/20 09/20/21 Rx pen needle, diabetic 32 gauge x #200 ea 07/04/20 08/31/21 Rx 1/4 gabapentin 300 mg capsule 300 mg PO QHS #30 cap 10/07/20 09/20/21 Rx levothyroxine 50 mcg capsule 50 mcg PO DAILY #1 cap 10/10/20 09/20/21 Rx blood-glucose meter,continuous #1 ea 10/25/20 08/31/21 Rx blood-glucose sensor #3 each 10/25/20 08/31/21 Rx blood-glucose transmitter #1 each 10/25/20 08/31/21 Rx lidocaine 1 patch TOPICAL DAILY #1 ea 11/25/20 09/20/21 Rx metaxalone [Skelaxin] 800 mg PO TID PRN #7 tablet 11/25/20 09/20/21 Rx hydrochlorothiazide 25 mg tablet See Rx Instructions .ROUTE 12/02/20 09/20/21 Rx .COMPLEX #90 tablet glipizide 5 mg tablet See Rx Instructions .ROUTE 12/27/20 09/20/21 Rx .COMPLEX #90 tablet blood sugar diagnostic #50 ea 01/26/21 08/31/21 Rx cephalexin 250 mg PO Q8H 7 Days #21 cap 07/25/21 09/20/21 Rx fluconazole 100 mg PO DAILY #14 tablet 07/25/21 09/20/21 Rx amlodipine 10 mg-atorvastatin 40 1 tablet PO DAILY #90 tablet 08/07/21 09/20/21 Rx mg tablet hydrochlorothiazide 25 mg PO DAILY 08/31/21 09/20/21 History triamcinolone acetonide 1 applic TOPICAL DAILY PRN 08/31/21 09/20/21 History Laboratory Tests 09/20/21 09:46 POC Capillary Glucose 143 mg/dl H mg/dl (65-105) Patient hx anesthesia problems: none Family hx anesthesia problems: none Results Review: All pre-operative results and documents have been reviewed as part of the pre-operative evaluation. [facility] Past Medical History Medical History (Updated 09/20/21 @ 10:56 by Cristobal Sánchez MD) Afib Anemia Anxiety Arthritis Bladder cancer Bowel obstruction CAD (coronary artery disease) Cataracts, bilateral Chronic right hip pain Closed fracture of proximal phalanx of lesser toe of right foot Depression Diabetes a1c was 7.17 aug 2019 Diverticulitis Dizziness DVT (deep venous thrombosis) Elbow fracture, left GERD (gastroesophageal reflux disease) Headache Heart attack Hemoglobin A1C between 7% and 9% indicating borderline diabetic control Hepatitis A History of blood transfusion History of rectal polyps HTN (hypertension) Hyperlipidemia Hypothyroid IBS (irritable bowel syndrome) Macular degeneration Menieres disease Seasonal allergies Skin cancer Toe fracture Vision changes Surgical History Surgical History Greater trochanteric bursitis of right hip surgical re-debridement January 2020 H/O local excision of skin lesion History of angioplasty History of appendectomy History of back surgery History of bladder surgery History of brain surgery History of cardiac catheterization History of cataract surgery History of coronary artery stent placement History of coronary artery stent placement History of foot surgery Lef
[2021-09-20 11:18] VITALS: BP 82/49; PULSE 68; RESP 20; O2SAT 97
[2021-09-20 11:28] VITALS: BP 122/72; PULSE 65; RESP 15; O2SAT 98
[2021-09-20 11:38] VITALS: BP 126/72; PULSE 62; RESP 16; O2SAT 98
== END 2021-09-20 11:55 | disposition home or self-care (01) ==
PROVIDERS: PCP Family Medicine; Visit Provider Internal Medicine Gastroenterology
PROC: 0DJ08ZZ Inspection of Upper Intestinal Tract, Via Natural or Artificial Opening Endoscopic (ICD-10-PCS; CPT 43235; principal; 2021-09-20 11:00)
DX: K21.00 Gastro-esophageal reflux disease with esophagitis, without bleeding (principal); M70.61 Trochanteric bursitis, right hip; R63.4 Abnormal weight loss; R19.7 Diarrhea, unspecified; I48.91 Unspecified atrial fibrillation; I25.10 Atherosclerotic heart disease of native coronary artery without angina pectoris; E11.9 Type 2 diabetes mellitus without complications; I25.2 Old myocardial infarction; I10 Essential (primary) hypertension; D64.9 Anemia, unspecified; F41.8 Other specified anxiety disorders; E78.5 Hyperlipidemia, unspecified; E03.9 Hypothyroidism, unspecified; K58.9 Irritable bowel syndrome, unspecified; B15.9 Hepatitis A without hepatic coma; Z95.5 Presence of coronary angioplasty implant and graft; Z87.891 Personal history of nicotine dependence; Z79.01 Long term (current) use of anticoagulants; Z79.84 Long term (current) use of oral hypoglycemic drugs; Z68.25 Body mass index [BMI] 25.0-25.9, adult
CPT/HCPCS: 43239; 82948; 87081; J2704; J7120

== ENCOUNTER → 2021-10-10 15:53 | Outpatient (CLI) | payer MEDICARE, OTHER, SELFPAY ==
--- NOTE | ~2021-10-10 | XR_ITS ---
XR lumbar spine 2-3V DATE: 10/10/2021 16:38 INDICATION: Right hip pain TECHNIQUE: AP, lateral, coned lateral lumbosacral views COMPARISON: None FINDINGS: There is approximately 24 degrees rotatory levoscoliosis of the lumbar spine, with associat ed severe degenerative disc disease at L2-3 and L3-4 especially, moderate degenerative disc disease a t L1-2, L4-5 and L5-S1. No fracture or bone destruction is evident. The included lower thoracic and lumbar pedicles appear in tact. The sacroiliac joints appear normal. Multiple coils and surgical clips overlie the abdomen and pelvis. IMPRESSION: Rotatory levoscoliosis and multilevel degenerative disc disease, moderately severe at L2- L3 4 Reviewed, dictated and finalized at location A. SETTER/DRIVER IMPRESSION: Rotatory levoscoliosis and multilevel degenerative disc disease, mo derately severe at L2-L3 4
--- NOTE | ~2021-10-10 | XR_ITS ---
XR hip BI 2V w AP pelvis DATE: 10/10/2021 16:38 INDICATION: Right hip pain TECHNIQUE: AP pelvis. AP and lateral views of each hip. COMPARISON: None FINDINGS: There is diffuse osteopenia. There is levoscoliosis and multilevel degenerative disease of the lumbar spine. The pubic symphysis and sacroiliac joints are intact. No fracture or dislocation, avascular necrosis or bone destruction of either hip is evident. There ar e 2 anchor devices at the right greater trochanter. There is chondrocalcinosis at the left hip. There is bilateral moderate hip osteoarthritis. Multiple surgical clips overlie the right lower quadrant and bilateral pelvis. Status post abdominal wall hernia repair. Extensive calcification of the abdominal aorta, iliac arteries as well as some femoral artery calcifi cations. IMPRESSION: Diffuse osteopenia Levoscoliosis and multilevel degenerative disc disease Moderate bilateral hip arthritis Left hip chondrocalcinosis Reviewed, dictated and finalized at location A. NE RESOURCE ECONOMIST
== END ==
PROVIDERS: PCP Family Medicine; Visit Provider Family Medicine
DX: M25.551 Pain in right hip (principal); M41.9 Scoliosis, unspecified; M47.819 Spondylosis without myelopathy or radiculopathy, site unspecified; M16.0 Bilateral primary osteoarthritis of hip; M11.252 Other chondrocalcinosis, left hip; M47.817 Spondylosis without myelopathy or radiculopathy, lumbosacral region
CPT/HCPCS: 72100; 73521

== ENCOUNTER → 2021-10-19 13:42 | Outpatient (CLI) | payer MEDICARE, OTHER, SELFPAY ==
--- NOTE | ~2021-10-19 | MR_ITS ---
EXAMINATION: MR lumbar spine wo con DATE: 10/19/2021 15:05 INDICATION: Lumbar radiculopathy. TECHNIQUE: Magnetic resonance imaging (MRI) of the lumbar spine was performed without intravenous con trast. Sequences included sagittal T2-weighted FSE, sagittal T2-weighted FS FSE, sagittal T1-weighted FSE, and axial T2-weighted FSE. COMPARISON: Lumbar spine MRI 03/02/2014 FINDINGS: There is 25 degrees levoscoliosis of lumbar spine. There is 5 mm retrolisthesis of L2 on L3 and 4 mm retrolisthesis of L3 on L4. Vertebral body heights are normal. There is severely decreased disc height at L2-L3 and L3-L4, moderately decreased disc height at L4-L5, and severely decreased dis c height at L5-S1. The distal spinal cord signal intensity is normal. The conus medullaris is at L1. The following disc levels are specifically discussed: L1-L2: The disc is mildly bulging. There is mild right and moderate left facet joint osteoarthritis. There is mild left neural foraminal stenosis. There is mild central canal stenosis. L2-L3: The disc is bulging and has an annular fissure. There is mild bilateral facet joint osteoarthr itis. There is moderate right and mild left neural foraminal stenosis. There is mild central canal st enosis. L3-L4: The disc is bulging and has an annular fissure. There is severe bilateral facet joint osteoart hritis. There is moderate bilateral neural foraminal stenosis. There is mild central canal stenosis w ith posterior decompression. L4-L5: The disc is bulging as an annular fissure. There is severe bilateral facet joint osteoarthriti s. There is mild right and moderate left neural foraminal stenosis. There is mild central canal steno sis with posterior decompression. L5-S1: The disc is bulging and has an annular fissure. There is mild right and severe left facet join t osteoarthritis. There is mild right and moderate left neural foraminal stenosis. There is mild cent ral canal stenosis. IMPRESSION: 1. Severe lumbar spondylosis, worsened from 03/02/2014. 2. Lumbar levoscoliosis. Reviewed, dictated and finalized at location A. US CONTROLLER
== END ==
PROVIDERS: Visit Provider Nurse Practitioner Adult Health
DX: M47.27 Other spondylosis with radiculopathy, lumbosacral region (principal); M48.07 Spinal stenosis, lumbosacral region; M41.9 Scoliosis, unspecified
CPT/HCPCS: 72148

== ENCOUNTER → 2021-12-25 14:11 | Outpatient (CLI) | payer MEDICARE, OTHER, SELFPAY ==
--- NOTE | ~2021-12-25 | XR_ITS ---
XR shoulder RT min 2V 12/25/2021 14:32 Indication: Right shoulder pain Procedure: 4 views right shoulder Comparison: No prior studies for comparison. Findings: There is moderate osteoarthritis of the acromioclavicular joint. No acute fracture or traum atic malalignment. No significant soft tissue abnormality. No radiopaque foreign bodies. Impression: 1: Moderate osteoarthritis of the right acromioclavicular joint. Reviewed, dictated and finalized at location A. Impression: 1: Moderate osteoarthritis of the right acromioclavicular joint.
== END ==
PROVIDERS: PCP Family Medicine; Visit Provider Nurse Practitioner Family
DX: M19.011 Primary osteoarthritis, right shoulder (principal)
CPT/HCPCS: 73030

== ENCOUNTER → 2022-01-02 11:26 | Outpatient (CLI) | payer MEDICARE, OTHER, SELFPAY ==
--- NOTE | ~2022-01-02 | MR_ITS ---
EXAMINATION: MR thoracic spine wo con DATE: 01/02/2022 12:03 INDICATION: Mid to low back pain. TECHNIQUE: Magnetic resonance imaging (MRI) of the thoracic spine was performed without intravenous c ontrast. Sagittal localizer T1-weighted FSE of the cervical spine was obtained. Thoracic spine sequen lakshmi included sagittal T2-weighted FSE, sagittal T1-weighted FSE, sagittal T2-weighted FS FSE, and axi al T2-weighted FSE. COMPARISON: Lumbar spine MRI 10/19/2021 FINDINGS: There is 12 degrees levoscoliosis of upper thoracic spine. There is 2 mm anterolisthesis of T1 on T2. There is a chronic compression fracture of T3 with less than 1/5 loss of height. There is mildly decreased disc height at T3-T4. There are central extrusions from T5-T6 through T9-T10 with mi ld central canal stenosis. There is a central protrusion at T10-T11 with mild central canal stenosis. There is multilevel facet joint osteoarthritis, severe at many levels. On the right, there is mild n eural foraminal stenosis at T2-T3, T3-T4, T4-T5, T5-T6, T7-T8, T8-T9, T9-T10, and T10-T11. On the lef t, there is mild neural foraminal stenosis at T7-T8, T8-T9, T9-T10, and T10-T11. The spinal cord sign al intensity is normal. The conus medullaris is at L1. IMPRESSION: 1. Mild thoracic spondylosis. 2. Upper thoracic levoscoliosis. Reviewed, dictated and finalized at location A.
== END ==
PROVIDERS: PCP Nurse Practitioner Family; Visit Provider Nurse Practitioner Family
DX: M47.814 Spondylosis without myelopathy or radiculopathy, thoracic region (principal); M48.04 Spinal stenosis, thoracic region; M41.9 Scoliosis, unspecified
CPT/HCPCS: 72146

== ENCOUNTER 2022-02-16 09:31 | Emergency (ER) | payer MEDICARE, OTHER, SELFPAY ==
--- NOTE | ~2022-02-16 | XR_ITS ---
[[id number] ] INDICATION: Right rib pain TECHNIQUE: Frontal projection of the upper right ribs, frontal projection of the lower right ribs, ob lique projection of all the right ribs, frontal inspiratory chest x-ray for interpretation. FINDINGS: There are no acute displaced rib fractures identified. There is a healed right fourth rib fracture. There are no soft tissue abnormality seen. The lungs are clear. There is severe lumbar sp ondylosis with levoscoliosis. There is atherosclerosis of the aorta. Bibasilar atelectasis. IMPRESSION: 1:No acute displaced rib fractures. Reviewed, dictated and finalized at location A.
[2022-02-16 09:43] VITALS: BP 128/62; PULSE 67; RESP 16; TEMP 36.6; O2SAT 99
--- NOTE | 2022-02-16 09:55 | ED.GENADULT ---
HPI - General Adult General Chief complaint: Unspecified Stated complaint: right side pain Time Seen by Provider: 02/16/22 09:55 History of Present Illness HPI narrative: Britney Escobar is a 81 yo female with a PMH of HTN, anticoagulation, depression,diabetes, hypothyroid,GERD, glaucoma, who comes to [facility] with complaints of right-sided rib pain after bending over a railing to pull weeds yesterday. Related Data Home Medications Medication Instructions Recorded Confirmed PreserVision AREDS-2 1 tab-cap PO DAILY 08/16/19 02/16/22 apixaban 5 mg tablet (Eliquis) 5 mg PO BID 08/16/19 02/16/22 metoprolol succinate 25 mg 25 mg PO DAILY 08/16/19 02/16/22 tablet,extended release 24 hr nitroglycerin 0.4 mg sublingual 0.4 mg sublingual PRN PRN Chest 08/16/19 02/16/22 tablet Pain triamcinolone acetonide 0.1 % 1 applic topical DAILY PRN Pain 08/31/21 02/16/22 topical cream empagliflozin 25 mg tablet 25 mg DIRECTED 02/16/22 02/16/22 (Jardiance) irbesartan 75 mg tablet 1 tablet DAILY 02/16/22 02/16/22 Allergies Allergy/AdvReac Type Severity Reaction Status Date / Time dimenhydrinate Allergy Unknown THROAT Verified 02/16/22 10:07 SWELLING iodine Allergy Unknown Rash Verified 02/16/22 10:07 Contrast Media Allergy Intermediate RASH Uncoded 02/16/22 10:07 Review of Systems Review of Systems: CONSTITUTIONAL: Denies fever, chills, sweats. EYES: Denies visual changes, redness, discharge. ENT: Denies rhinorrhea, congestion, sore throat, otalgia. CARDIOVASCULAR: Denies chest pain, palpitations, edema. RESPIRATORY: Denies dyspnea, wheezing, cough GASTROINTESTINAL: Denies abdominal pain, nausea, vomiting, diarrhea. GENITOURINARY: Denies dysuria, hematuria, abnormal discharge SKIN: Denies rash or itching. NEUROLOGIC: Denies numbness, or focal weakness. PSYCHIATRIC: Denies anxiety or depression. Right-sided chest wall pain PMFSH Past Medical History Medical History (Updated 02/16/22 @ 10:16 by Kathrin Antonio CNP) Afib Anemia Anxiety Arthritis Bladder cancer Bowel obstruction CAD (coronary artery disease) Cataracts, bilateral Chronic right hip pain Closed fracture of proximal phalanx of lesser toe of right foot Depression Diabetes a1c was 7.17 aug 2019 Diverticulitis Dizziness DVT (deep venous thrombosis) Elbow fracture, left GERD (gastroesophageal reflux disease) Headache Heart attack Hemoglobin A1C between 7% and 9% indicating borderline diabetic control Hepatitis A History of blood transfusion History of rectal polyps HTN (hypertension) Hyperlipidemia Hypothyroid IBS (irritable bowel syndrome) Macular degeneration Menieres disease Seasonal allergies Skin cancer Toe fracture Vision changes Surgical History Surgical History Greater trochanteric bursitis of right hip surgical re-debridement January 2020 H/O local excision of skin lesion History of angioplasty History of appendectomy History of back surgery History of bladder surgery History of brain surgery History of cardiac catheterization History of cataract surgery History of coronary artery stent placement History of coronary artery stent placement History of foot surgery Left History of hernia repair History of hip surgery Right hip abductor repair History of hysterectomy History of ileal conduit History of tonsillectomy Family History Family History Mother Diabetes mellitus Hypertension Family history of coronary artery disease Sibling Diabetes mellitus Hypertension Family history of malignant neoplasm Carcinoma of colon Family history of Alzheimer's disease Family history of malignant neoplasm of bone Family history of coronary artery disease Social History Social History Years smoked: 12 Smoking status: Former smoker Tobacco type: cigarettes Sec
== END 2022-02-16 10:29 | disposition home or self-care (01) ==
PROVIDERS: Emergency Provider Nurse Practitioner; PCP Family Medicine
DX: R07.89 Other chest pain (principal); Z87.891 Personal history of nicotine dependence; I48.91 Unspecified atrial fibrillation; I25.10 Atherosclerotic heart disease of native coronary artery without angina pectoris; E11.9 Type 2 diabetes mellitus without complications; Z86.718 Personal history of other venous thrombosis and embolism; K21.9 Gastro-esophageal reflux disease without esophagitis; I10 Essential (primary) hypertension; E78.5 Hyperlipidemia, unspecified; E03.9 Hypothyroidism, unspecified; H35.30 Unspecified macular degeneration; Z85.51 Personal history of malignant neoplasm of bladder; Z85.828 Personal history of other malignant neoplasm of skin; I25.2 Old myocardial infarction; Z95.5 Presence of coronary angioplasty implant and graft
CPT/HCPCS: 71101; 99213; G0463

== ENCOUNTER 2022-06-11 17:09 | Outpatient (CLI) | payer MEDICARE, OTHER, SELFPAY ==
[2022-06-11 17:55] LABS: Basophils Absolute Auto 0.1 K/mm3 (0.0-0.1); Basophils Percent Auto 0.7 % (0.2-1.2); Eosinophils Absolute Auto 0.2 K/mm3 (0-0.3); Eosinophils Percent Auto 1.6 % (0-4.4); Hematocrit 41.9 % (37.0-47.0); Hemoglobin 13.8 g/dL (12.0-15.0); Immature Granulocyte Absolute 0.05 K/mm3 (0.00-0.031); Immature Granulocyte Percent A 0.5 % (0-0.5); Lymphocytes Absolute Auto 1.49 K/mm3 (0.9-3.2); Lymphocytes Percent Auto 14.5 % (18.3-44.2); Mean Corpuscular HGB Conc 32.9 g/dl (32-36); Mean Corpuscular Hemoglobin 29.3 pg (26-34); Mean Platelet Volume 9.1 fl (7.4-10.4); Monocytes Absolute Auto 1.1 K/mm3 (0.1-0.6); Monocytes Percent Auto 10.3 % (2.6-8.5); Neutrophils Absolute Auto 7.4 K/mm3 (1.3-6.7); Neutrophils Percent Auto 72.4 % (45.5-73.1); Platelet Count Result 343 k/mm3 (150-375); Red Blood Count 4.71 M/mm3 (4.2-5.4); Red Cell Distribution Width 14.1 % (11.5-14.5); White Blood Count 10.3 K/mm3 (4.5-10.0)
[2022-06-11 18:05] LABS: Alanine Aminotransferase 15 U/L (6-35); Albumin Level 4.3 g/dL (3.5-5.1); Alkaline Phosphatase 95 U/L (38-126); Anion Gap 18 mmol/L (8-16); Aspartate Amino Transferase 18 U/L (14-36); Bilirubin,Total 0.5 mg/dL (0.2-1.3); Blood Urea Nitrogen 41 mg/dL (7-17); Calcium 9.8 mg/dL (8.4-10.2); Carbon Dioxide 14 mmol/L (22-30); Chloride 108 mmol/L (98-107); Estimated Glomerular Filt Rate 39; Glucose 181 mg/dL (65-110); Potassium 3.3 mmol/L (3.4-5.0); Sodium 140 mmol/L (137-145)
[2022-06-11 18:33] LABS: Hemoglobin A1C 9.9 % (<5.7)
== END 2022-06-11 17:10 | disposition home or self-care (01) ==
PROVIDERS: PCP Family Medicine; Visit Provider Nurse Practitioner Family
DX: E03.9 Hypothyroidism, unspecified (principal); E11.9 Type 2 diabetes mellitus without complications; R11.2 Nausea with vomiting, unspecified; R63.4 Abnormal weight loss; E78.2 Mixed hyperlipidemia
CPT/HCPCS: 36415; 80053; 83036; 84443; 85025

== ENCOUNTER 2022-06-13 09:48 | Emergency (ER) | payer MEDICARE, OTHER, SELFPAY ==
--- NOTE | ~2022-06-13 | XR_ITS ---
EXAMINATION: XR chest 2V DATE: 06/13/2022 12:52 INDICATION: Leukocytosis. TECHNIQUE: Frontal and lateral views of the chest were obtained. COMPARISON: Chest 2 views 05/12/2017, CT abdomen and pelvis 04/29/2018 FINDINGS: There is mild atelectasis in left lower lung zone. No pleural effusion or pneumothorax. The heart size is normal. IMPRESSION: 1. Mild atelectasis in left lower lung zone. Reviewed, dictated and finalized at location A.
--- NOTE | ~2022-06-13 | CT_ITS ---
EXAMINATION: CT abdomen pelvis wo con DATE: 06/13/2022 11:20 INDICATION: Constipation. TECHNIQUE: Computed tomography (CT) of the abdomen and pelvis was performed without intravenous contr ast. Automated exposure control and iterative reconstruction technique were employed. The dose-length product was 429.95 mGy-cm. COMPARISON: CT abdomen and pelvis 04/29/2018 FINDINGS: The visualized portions of the lung bases demonstrate mild atelectasis and mild bronchiecta sis. No pleural effusion. The heart size is normal. There are coronary artery calcifications. No isaac cardial effusion. The liver and gallbladder are normal. Calcifications in the spleen are consistent w ith old granulomatous disease. The pancreas, adrenal glands, and right kidney are normal. There is 11 mm cyst in left kidney. There is diverticulosis of the colon without evidence of diverticulitis. The re is an ileal conduit on the right. There are no dilated loops of bowel. The appendix is not visuali zed. There are surgical clips from pelvic lymph node dissection. There are no pathologically enlarged lymph nodes. There is no free intraperitoneal fluid. There is lumbar levoscoliosis and severe spondy losis. IMPRESSION: 1. No etiology for the patient's symptoms. Reviewed, dictated and finalized at location A.
[2022-06-13 10:15] VITALS: BP 114/64; PULSE 72; RESP 20; TEMP 36.1; O2SAT 100
--- NOTE | 2022-06-13 10:46 | ECG_ITS ---
Measurements Intervals Rogers Rate: 67 P: 45 KS: 184 QRS: -18 QRSD: 118 T: 35 QT: 391 QTc: 414 Interpretive Statements SINUS RHYTHM INTRAVENTRICULAR CONDUCTION DELAY DELAYED PRECORDIAL R/S TRANSITION BASELINE WANDER- I, III, AVR, AVF BORDERLINE ECG NO PREVIOUS ECG AVAILABLE FOR COMPARISON Electronically Signed On 06-13-2022 11:07:33 CDT by Alex Singh D.O.
[2022-06-13] MEDS: ONDANSETRON INJ 4 MG/2 ML VIAL IV PUSH (11:03)
[2022-06-13] MEDS: SODIUM CHLORIDE 0.9% IV 1,000 ML 999 ML IV CONT ×2 (11:03→12:13)
--- NOTE | 2022-06-13 11:03 | ED.GENADULT ---
HPI - General Adult General Chief complaint: Nausea/Vomiting/Diarrhea Stated complaint: vomiting, weakness Time Seen by Provider: 06/13/22 10:35 History of Present Illness HPI narrative: Patient is an 81-year-old female with a history of chronic pain, currently taking hydrocodone daily, bladder cancer status post urostomy here for evaluation of generalized weakness over the past several days. States that her chronic pain in her back and hips is flaring up, making her feel weak. Also notes that she has not had a bowel movement over the past 9 days. Has a history of bowel obstruction, states this feels similar. She began to vomit today which prompted her ED evaluation. Was seen by her primary care provider upon symptom onset, was diagnosed with an infection and was placed on Z-Juan. Patient denies any upper respiratory infectious type symptoms, shortness of breath, fevers or chills, sick contacts. Related Data Home Medications Medication Instructions Recorded Confirmed PreserVision AREDS-2 1 tab-cap PO DAILY 08/16/19 06/11/22 apixaban 5 mg tablet (Eliquis) 5 mg PO BID 08/16/19 06/11/22 metoprolol succinate 25 mg 25 mg PO DAILY 08/16/19 06/11/22 tablet,extended release 24 hr nitroglycerin 0.4 mg sublingual 0.4 mg sublingual PRN PRN Chest 08/16/19 06/11/22 tablet Pain triamcinolone acetonide 0.1 % 1 applic topical DAILY PRN Pain 08/31/21 06/11/22 topical cream empagliflozin 25 mg tablet 25 mg DIRECTED 02/16/22 06/11/22 (Jardiance) irbesartan 75 mg tablet 1 tablet DAILY 02/16/22 06/11/22 Allergies Allergy/AdvReac Type Severity Reaction Status Date / Time dimenhydrinate Allergy Unknown THROAT Verified 06/13/22 10:20 SWELLING iodine Allergy Unknown Rash Verified 06/13/22 10:20 Contrast Media Allergy Intermediate RASH Uncoded 06/13/22 10:20 Review of Systems Review of Systems: Gen.: Reports weakness. His denies fevers or chills Eyes: Denies eye pain or visual change ENT: Denies congestion Respiratory: Denies shortness of breath or cough CV: Denies chest pain or palpitations GI: Reports constipation and nausea vomiting. Denies abdominal pain diarrhea denies burning, urgency, frequency or hematuria Musculoskeletal: Denies back pain or muscle pain Neuro: Denies numbness, tingling, weakness or focal weakness Skin: Denies rash Except as documented, all other systems reviewed and negative [facility] Past Medical History Medical History (Updated 06/14/22 @ 00:00 by Grayson Lim) Afib Anemia Anxiety Arthritis Bladder cancer Bowel obstruction CAD (coronary artery disease) Cataracts, bilateral Chronic right hip pain Closed fracture of proximal phalanx of lesser toe of right foot Depression Diabetes a1c was 7.17 aug 2019 Diverticulitis Dizziness DVT (deep venous thrombosis) Elbow fracture, left GERD (gastroesophageal reflux disease) Headache Heart attack Hemoglobin A1C between 7% and 9% indicating borderline diabetic control Hepatitis A History of blood transfusion History of rectal polyps HTN (hypertension) Hyperlipidemia Hypothyroid IBS (irritable bowel syndrome) Macular degeneration Menieres disease Seasonal allergies Skin cancer Toe fracture Vision changes Surgical History Surgical History Greater trochanteric bursitis of right hip surgical re-debridement January 2020 H/O local excision of skin lesion History of angioplasty History of appendectomy History of back surgery History of bladder surgery History of brain surgery History of cardiac catheterization History of cataract surgery History of coronary artery stent placement History of coronary artery stent placement History of foot surgery Left History of hernia repair History of hip surgery Right hip abductor repair History of hysterectomy History of ileal conduit History of tonsillectomy Family History Family History (Reviewed 06/11/22 @ 16:31 by Helen Mclain
[2022-06-13 11:12] LABS: Basophils Absolute Auto 0.1 K/mm3 (0.0-0.1); Basophils Percent Auto 0.5 % (0.2-1.2); Eosinophils Absolute Auto 0.2 K/mm3 (0-0.3); Eosinophils Percent Auto 1.4 % (0-4.4); Hematocrit 40.3 % (37.0-47.0); Hemoglobin 13.4 g/dL (12.0-15.0); Immature Granulocyte Absolute 0.08 K/mm3 (0.00-0.031); Immature Granulocyte Percent A 0.6 % (0-0.5); Lymphocytes Percent Auto 8.2 % (18.3-44.2); Mean Corpuscular HGB Conc 33.3 g/dl (32-36); Mean Corpuscular Hemoglobin 28.8 pg (26-34); Mean Corpuscular Volume 86.5 fl (80-100); Mean Platelet Volume 8.8 fl (7.4-10.4); Monocytes Absolute Auto 1.1 K/mm3 (0.1-0.6); Monocytes Percent Auto 8.3 % (2.6-8.5); Neutrophils Absolute Auto 10.9 K/mm3 (1.3-6.7); Platelet Count Result 344 k/mm3 (150-375); Red Blood Count 4.66 M/mm3 (4.2-5.4); Red Cell Distribution Width 13.9 % (11.5-14.5); White Blood Count 13.4 K/mm3 (4.5-10.0)
[2022-06-13 11:22] LABS: Alanine Aminotransferase 17 U/L (6-35); Albumin Level 4.2 g/dL (3.5-5.1); Alkaline Phosphatase 97 U/L (38-126); Anion Gap 17 mmol/L (8-16); Aspartate Amino Transferase 19 U/L (14-36); Bilirubin,Total 0.6 mg/dL (0.2-1.3); Blood Urea Nitrogen 48 mg/dL (7-17); Calcium 9.6 mg/dL (8.4-10.2); Carbon Dioxide 12 mmol/L (22-30); Chloride 108 mmol/L (98-107); Estimated CRCL calculation 29 ml/min; Estimated Glomerular Filt Rate 43; Glucose 197 mg/dL (65-110); Lipase 99 U/L (23-300); Potassium 3.5 mmol/L (3.4-5.0); Sodium 137 mmol/L (137-145)
[2022-06-13 11:26] LABS: Lactic Acid Reflex 1.1 mmol/L (0.7-2.0)
[2022-06-13 11:34] LABS: Troponin I < 0.012 ng/mL (0.000-0.034)
[2022-06-13 11:55] LABS: Influenza A QL RT-PCR Negative (Negative); Influenza B QL RT-PCR Negative (Negative); SARS-CoV-2 RNA PCR Negative
[2022-06-13 11:57] LABS: Device ROOM AIR; Fractional Inspired Oxygen 21 %; HCO3 VBG 14.2 mEq/l (24.0-30.0); PCO2 VBG 38.1 mmHg (42.0-48.0); PO2 VBG 29.2 mmHg (35.0-45.0)
[2022-06-13 12:04] LABS: Appearance Urine Cloudy (Clear); Bilirubin Urine Negative (Negative); Blood Urine Trace-intact (Negative); Color Urine Light Yellow (Yellow); Glucose Urine UA Negative (Negative); Ketones Urine Negative (Negative); Leukocyte Esterase Ur 3+ LEU/UL (Negative); Nitrate Urine Negative (Negative); Protein Urine 1+ mg/dL (Negative); Specific Grav Ur 1.015 (1.001-1.035); Urobilinogen Urine 0.2 mg/dL (<2.0); pH Urine 7.5 (5.0-9.0)
[2022-06-13 12:13] VITALS: BP 125/66; PULSE 64; RESP 16; O2SAT 100
[2022-06-13 12:13] LABS: Beta-Hydroxybutyrate/Acetoacetate 0.18 mmol/L (0.02-0.27)
[2022-06-13 12:16] VITALS: BP 132/66; PULSE 69; RESP 17; O2SAT 98
[2022-06-13 12:18] LABS: Bacteria Urine Trace /hpf; Mucus Urine Rare /lpf; WBC Urine 31-50 /hpf
[2022-06-13 12:20] LABS: Add Urine Microscopic? YES
[2022-06-13 13:33] LABS: Anion Gap 13 mmol/L (8-16); Blood Urea Nitrogen 42 mg/dL (7-17); Calcium 8.2 mg/dL (8.4-10.2); Carbon Dioxide 14 mmol/L (22-30); Chloride 112 mmol/L (98-107); Estimated CRCL calculation 34 ml/min; Estimated Glomerular Filt Rate 53; Glucose 157 mg/dL (65-110); Potassium 3.2 mmol/L (3.4-5.0); Sodium 139 mmol/L (137-145)
== END 2022-06-13 14:10 | disposition home or self-care (01) ==
PROVIDERS: Physician Assistant; Emergency Provider Emergency Medicine; PCP Family Medicine
DX: R53.83 Other fatigue (principal); Z20.822 Contact with and (suspected) exposure to COVID-19; I48.91 Unspecified atrial fibrillation; I25.10 Atherosclerotic heart disease of native coronary artery without angina pectoris; E11.9 Type 2 diabetes mellitus without complications; I25.2 Old myocardial infarction; E78.5 Hyperlipidemia, unspecified; I11.0 Hypertensive heart disease with heart failure; K21.9 Gastro-esophageal reflux disease without esophagitis; M19.90 Unspecified osteoarthritis, unspecified site; E03.9 Hypothyroidism, unspecified; H35.30 Unspecified macular degeneration; H81.09 Meniere's disease, unspecified ear; Z86.2 Personal history of diseases of the blood and blood-forming organs and certain disorders involving the immune mechanism; Z86.718 Personal history of other venous thrombosis and embolism; Z85.828 Personal history of other malignant neoplasm of skin; Z95.5 Presence of coronary angioplasty implant and graft; Z87.891 Personal history of nicotine dependence; Z79.01 Long term (current) use of anticoagulants; Z79.84 Long term (current) use of oral hypoglycemic drugs; I45.9 Conduction disorder, unspecified; R94.31 Abnormal electrocardiogram [ECG] [EKG]; Z90.710 Acquired absence of both cervix and uterus
CPT/HCPCS: 36415; 71046; 74176; 80048; 80053; 81001; 82010; 82803; 83605; 83690; 84443; 84484; 85025; 87086; 87088; 87502; 93005; 96361; 96374; 99284; J2405; J7030; U0003; U0005

== ENCOUNTER 2022-06-18 14:05 | Outpatient (CLI) | payer MEDICARE, OTHER, SELFPAY ==
--- NOTE | 2022-06-18 | ECG_ITS ---
Measurements Intervals [place] Rate: 59 P: 62 HI: 194 QRS: 7 QRSD: 108 T: 37 QT: 386 QTc: 384 Interpretive Statements SINUS BRADYCARDIA BORDERLINE ECG COMPARED TO ECG 06/13/2022 11:02:24 SINUS BRADYCARDIA NOW PRESENT Electronically Signed On 06-18-2022 15:33:06 MASTIC SPRAYER by Alex Singh D.O.
[2022-06-18 15:04] LABS: Basophils Absolute Auto 0.1 K/mm3 (0.0-0.1); Basophils Percent Auto 0.7 % (0.2-1.2); Eosinophils Absolute Auto 0.3 K/mm3 (0-0.3); Eosinophils Percent Auto 2.6 % (0-4.4); Hematocrit 38.8 % (37.0-47.0); Hemoglobin 12.6 g/dL (12.0-15.0); Immature Granulocyte Absolute 0.07 K/mm3 (0.00-0.031); Immature Granulocyte Percent A 0.7 % (0-0.5); Lymphocytes Absolute Auto 1.23 K/mm3 (0.9-3.2); Lymphocytes Percent Auto 11.8 % (18.3-44.2); Mean Corpuscular HGB Conc 32.5 g/dl (32-36); Mean Corpuscular Hemoglobin 28.6 pg (26-34); Monocytes Absolute Auto 0.7 K/mm3 (0.1-0.6); Monocytes Percent Auto 6.2 % (2.6-8.5); Neutrophils Absolute Auto 8.2 K/mm3 (1.3-6.7); Platelet Count Result 372 k/mm3 (150-375); Red Blood Count 4.41 M/mm3 (4.2-5.4); Red Cell Distribution Width 14.1 % (11.5-14.5); White Blood Count 10.4 K/mm3 (4.5-10.0)
[2022-06-18 15:12] LABS: Anion Gap 17 mmol/L (8-16); Blood Urea Nitrogen 49 mg/dL (7-17); Calcium 9.5 mg/dL (8.4-10.2); Carbon Dioxide 17 mmol/L (22-30); Chloride 108 mmol/L (98-107); Estimated Glomerular Filt Rate 36; Glucose 239 mg/dL (65-110); Potassium 3.6 mmol/L (3.4-5.0); Sodium 142 mmol/L (137-145)
[2022-06-18 15:34] LABS: Add Urine Microscopic? YES; Appearance Urine Cloudy (Clear); Bilirubin Urine Negative (Negative); Blood Urine Trace-intact (Negative); Color Urine Yellow (Yellow); Glucose Urine UA Negative (Negative); Ketones Urine Negative (Negative); Leukocyte Esterase Ur 2+ LEU/UL (Negative); Nitrate Urine Negative (Negative); Protein Urine 1+ mg/dL (Negative); Specific Grav Ur 1.015 (1.001-1.035); Urobilinogen Urine 0.2 mg/dL (<2.0)
[2022-06-18 15:37] LABS: Bacteria Urine Trace /hpf; Mucus Urine Rare /lpf; WBC Urine 31-50 /hpf; Waxy Casts Urine Present /lpf
[2022-06-18 16:02] LABS: Erythrocyte Sedimentation Rate 42 mm/hr (0-20)
== END 2022-06-18 14:06 | disposition home or self-care (01) ==
PROVIDERS: PCP Family Medicine; Visit Provider Pain Medicine Pain Medicine
DX: Z01.818 Encounter for other preprocedural examination (principal); R94.31 Abnormal electrocardiogram [ECG] [EKG]
CPT/HCPCS: 36415; 80048; 81001; 85025; 85652; 86140; 87077; 87086; 87186; 93005

== ENCOUNTER 2022-06-28 11:48 | Outpatient (CLI) | payer MEDICARE, OTHER, SELFPAY ==
--- NOTE | ~2022-06-28 | XR_ITS ---
EXAMINATION: XR abdomen/kub 1V DATE: 06/28/2022 12:34 INDICATION: Constipation. TECHNIQUE: A supine view of the abdomen was obtained. COMPARISON: CT abdomen and pelvis 06/13/2022 FINDINGS: There is an ileal conduit in right abdomen. There are changes of ventral hernia repair. The re are surgical clips from pelvic lymph node dissection. There are no dilated loops of bowel. There i s a moderate volume of stool in colon. IMPRESSION: 1. Nonobstructive bowel gas pattern. Reviewed, dictated and finalized at location A. 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
[2022-06-28 12:33] LABS: Basophils Absolute Auto 0.1 K/mm3 (0.0-0.1); Basophils Percent Auto 0.6 % (0.2-1.2); Eosinophils Absolute Auto 0.2 K/mm3 (0-0.3); Eosinophils Percent Auto 1.7 % (0-4.4); Hematocrit 43.3 % (37.0-47.0); Hemoglobin 13.8 g/dL (12.0-15.0); Immature Granulocyte Absolute 0.06 K/mm3 (0.00-0.031); Immature Granulocyte Percent A 0.5 % (0-0.5); Lymphocytes Absolute Auto 1.59 K/mm3 (0.9-3.2); Lymphocytes Percent Auto 12.7 % (18.3-44.2); Mean Corpuscular HGB Conc 31.9 g/dl (32-36); Mean Corpuscular Hemoglobin 28.8 pg (26-34); Mean Corpuscular Volume 90.4 fl (80-100); Mean Platelet Volume 9.1 fl (7.4-10.4); Monocytes Absolute Auto 0.9 K/mm3 (0.1-0.6); Monocytes Percent Auto 7.1 % (2.6-8.5); Neutrophils Absolute Auto 9.7 K/mm3 (1.3-6.7); Neutrophils Percent Auto 77.4 % (45.5-73.1); Platelet Count Result 355 k/mm3 (150-375); Red Blood Count 4.79 M/mm3 (4.2-5.4); Red Cell Distribution Width 14.7 % (11.5-14.5); White Blood Count 12.6 K/mm3 (4.5-10.0)
[2022-06-28 14:23] LABS: Alanine Aminotransferase 18 U/L (6-35); Albumin Level 4.3 g/dL (3.5-5.1); Alkaline Phosphatase 80 U/L (38-126); Anion Gap 17 mmol/L (8-16); Aspartate Amino Transferase 25 U/L (14-36); Bilirubin,Total 0.6 mg/dL (0.2-1.3); Blood Urea Nitrogen 56 mg/dL (7-17); Carbon Dioxide 14 mmol/L (22-30); Chloride 110 mmol/L (98-107); Estimated Glomerular Filt Rate 36; Glucose 141 mg/dL (65-110); Potassium 3.4 mmol/L (3.4-5.0); Sodium 141 mmol/L (137-145)
== END 2022-06-28 11:49 | disposition home or self-care (01) ==
PROVIDERS: PCP Family Medicine; Visit Provider Nurse Practitioner Family
DX: N39.0 Urinary tract infection, site not specified (principal); R11.2 Nausea with vomiting, unspecified; D72.829 Elevated white blood cell count, unspecified; K59.00 Constipation, unspecified
CPT/HCPCS: 36415; 74018; 80053; 85025

== ENCOUNTER 2022-07-02 14:06 | Emergency (ER) | payer MEDICARE, OTHER, SELFPAY ==
[2022-07-02] VITALS (14 sets, daily range): BP systolic 109–153; BP diastolic 65–86; PULSE 90–118; RESP 12–26; TEMP 36.7; O2SAT 83–100
--- NOTE | ~2022-07-02 | XR_ITS ---
XR chest 2V 07/02/2022 15:48 Indication: Hypertension. Nausea with emesis. Procedure: PA and lateral views of the chest Comparison: 06/13/2022 Findings: Heart size normal. There is lingular atelectasis/scarring. No focal pneumonia, edema, pleur al effusion or pneumothorax. No acute osseous abnormality. Impression: 1: Lingular atelectasis/scarring. Reviewed, dictated and finalized at location B. ER HAND Impression: 1: Lingular atelectasis/scarring.
--- NOTE | ~2022-07-02 | XR_ITS ---
EXAM: XR abdomen obstructive series DATE: 07/02/2022 18:27 HISTORY: nausea and vomiting . COMPARISON: None available. FINDINGS: Clear lung bases. Numerous lower abdominal and pelvic surgical clips. Hernia mesh anchors. Right lower quadrant ostomy. Soft tissue anchors in the right greater trochanter. Normal bowel gas p attern. No organomegaly. No abnormal abdominal calcification. Lumbar scoliosis. Severe degenerative c hange in the lumbar spine. IMPRESSION: No radiographic evidence of ileus or obstruction. Reviewed, dictated and finalized at location K. [facility]
--- NOTE | 2022-07-02 14:52 | ECG_ITS ---
Measurements Intervals [place] Rate: 118 P: 60 OK: 175 QRS: -39 QRSD: 91 T: 78 QT: 332 QTc: 466 Interpretive Statements SINUS TACHYCARDIA LEFT AXIS DEVIATION CANNOT RULE OUT SEPTAL INFARCT, AGE INDETERMINATE BORDERLINE ST-T WAVE ABNORMALITY- HIGH LATERAL LEADS BASELINE WANDER- V1-V2, V6 ABNORMAL ECG COMPARED TO ECG 06/18/2022 14:51:54 SINUS TACHYCARDIA NOW PRESENT LEFT-AXIS DEVIATION NOW PRESENT MYOCARDIAL INFARCT FINDING NOW PRESENT Electronically Signed On 07-02-2022 15:03:05 DIRECTOR MARKETING ANALYTICS by Alex Singh D.O.
[2022-07-02 15:11] LABS: Basophils Absolute Auto 0.1 K/mm3 (0.0-0.1); Basophils Percent Auto 0.5 % (0.2-1.2); Eosinophils Absolute Auto 0.1 K/mm3 (0-0.3); Eosinophils Percent Auto 0.8 % (0-4.4); Hematocrit 43.1 % (37.0-47.0); Hemoglobin 14.3 g/dL (12.0-15.0); Immature Granulocyte Absolute 0.05 K/mm3 (0.00-0.031); Immature Granulocyte Percent A 0.4 % (0-0.5); Lymphocytes Absolute Auto 1.31 K/mm3 (0.9-3.2); Mean Corpuscular HGB Conc 33.2 g/dl (32-36); Mean Corpuscular Hemoglobin 29.1 pg (26-34); Mean Corpuscular Volume 87.6 fl (80-100); Mean Platelet Volume 9.7 fl (7.4-10.4); Monocytes Absolute Auto 0.8 K/mm3 (0.1-0.6); Monocytes Percent Auto 7.1 % (2.6-8.5); Neutrophils Absolute Auto 9.5 K/mm3 (1.3-6.7); Neutrophils Percent Auto 80.2 % (45.5-73.1); Platelet Count Result 357 k/mm3 (150-375); Red Blood Count 4.92 M/mm3 (4.2-5.4); Red Cell Distribution Width 14.6 % (11.5-14.5); White Blood Count 11.9 K/mm3 (4.5-10.0)
[2022-07-02 15:18] LABS: INR 1.5; Partial Thromboplastin Time 28.6 SECONDS (22.3-36.8); Prothrombin Time 17.1 Seconds (11.1-14.7)
[2022-07-02 15:28] LABS: Alanine Aminotransferase 16 U/L (6-35); Albumin Level 4.2 g/dL (3.5-5.1); Alkaline Phosphatase 96 U/L (38-126); Anion Gap 14 mmol/L (8-16); Aspartate Amino Transferase 19 U/L (14-36); Bilirubin,Total 0.6 mg/dL (0.2-1.3); Blood Urea Nitrogen 69 mg/dL (7-17); Carbon Dioxide 12 mmol/L (22-30); Chloride 110 mmol/L (98-107); Estimated CRCL calculation 23 ml/min; Estimated Glomerular Filt Rate 33; Glucose 238 mg/dL (65-110); Lipase 221 U/L (23-300); Potassium 3.5 mmol/L (3.4-5.0); Sodium 136 mmol/L (137-145)
[2022-07-02 15:40] LABS: Troponin I < 0.012 ng/mL (0.000-0.034)
[2022-07-02] MEDS: METOCLOPRAMIDE HCL INJ 10 MG/2 ML VIAL IV PUSH (18:28)
[2022-07-02 18:49] LABS: Troponin I < 0.012 ng/mL (0.000-0.034)
--- NOTE | 2022-07-02 19:20 | ED.GENADULT ---
HPI - General Adult General Chief complaint: Nausea/Vomiting/Diarrhea Stated complaint: N/V Time Seen by Provider: 07/02/22 17:38 History of Present Illness HPI narrative: 21-year-old female presented to the emergency department for evaluation of persistent nausea and decreased p.o. intake. Patient states she has had this issue for approximately 1 month. Patient did have a pain stimulator placed in her lower back and the physician removed it due to concern of underlying infection. Patient was started on antibiotics at that time. Patient reports that the antibiotics exacerbated her nausea and vomiting. Patient recently stopped taking her Cipro and states that this did help with the nausea and vomiting but she still has decreased appetite and decreased p.o. intake. Patient does have a history of gastric ulcers and has had previous follow-up with Dr. Sánchez. Patient is unsure if she takes pantoprazole. Related Data Home Medications Medication Instructions Recorded Confirmed PreserVision AREDS-2 1 tab-cap PO DAILY 08/16/19 06/11/22 apixaban 5 mg tablet (Eliquis) 5 mg PO BID 08/16/19 06/11/22 metoprolol succinate 25 mg 25 mg PO DAILY 08/16/19 06/11/22 tablet,extended release 24 hr nitroglycerin 0.4 mg sublingual 0.4 mg sublingual PRN PRN Chest 08/16/19 06/11/22 tablet Pain triamcinolone acetonide 0.1 % 1 applic topical DAILY PRN Pain 08/31/21 06/11/22 topical cream empagliflozin 25 mg tablet 25 mg DIRECTED 02/16/22 06/11/22 (Jardiance) irbesartan 75 mg tablet 1 tablet DAILY 02/16/22 06/11/22 Allergies Allergy/AdvReac Type Severity Reaction Status Date / Time dimenhydrinate Allergy Unknown THROAT Verified 07/02/22 13:50 SWELLING iodine Allergy Unknown Rash Verified 07/02/22 13:50 Contrast Media Allergy Intermediate RASH Uncoded 07/02/22 13:50 Review of Systems Review of Systems: CONSTITUTIONAL: Denies fever, chills, or sweats. EYES: Denies visual changes, redness, or discharge. ENT: Denies rhinorrhea, congestion, sore throat, or otalgia. CARDIOVASCULAR: Denies chest pain, palpitations, or edema. RESPIRATORY: Denies cough or dyspnea. GASTROINTESTINAL: See HPI GENITOURINARY: Denies dysuria or hematuria. SKIN: Denies rash or itching. MUSCULOSKELETAL: Denies back pain, joint pain, or myalgia. NEUROLOGIC: Denies headache, numbness, or weakness. [facility] Past Medical History Medical History (Updated 07/03/22 @ 13:47 by Geovani Daly MD) Afib Anemia Anxiety Arthritis Bladder cancer Bowel obstruction CAD (coronary artery disease) Cataracts, bilateral Chronic right hip pain Closed fracture of proximal phalanx of lesser toe of right foot Depression Diabetes a1c was 7.17 aug 2019 Diverticulitis Dizziness DVT (deep venous thrombosis) Elbow fracture, left GERD (gastroesophageal reflux disease) Headache Heart attack Hemoglobin A1C between 7% and 9% indicating borderline diabetic control Hepatitis A History of blood transfusion History of rectal polyps HTN (hypertension) Hyperlipidemia Hypothyroid IBS (irritable bowel syndrome) Macular degeneration Menieres disease Seasonal allergies Skin cancer Toe fracture Vision changes Surgical History Surgical History Greater trochanteric bursitis of right hip surgical re-debridement January 2020 H/O local excision of skin lesion History of angioplasty History of appendectomy History of back surgery History of bladder surgery History of brain surgery History of cardiac catheterization History of cataract surgery History of coronary artery stent placement History of coronary artery stent placement History of foot surgery Left History of hernia repair History of hip surgery Right hip abductor repair History of hysterectomy History of ileal conduit History of tonsillectomy Family History Family History Mother Diabetes mellitus Hyperten
[2022-07-02] MEDS: ONDANSETRON INJ 4 MG/2 ML VIAL IV PUSH (19:29)
[2022-07-02] MEDS: PANTOPRAZOLE SODIUM IV 40 MG VIAL IV PUSH (19:29)
== END 2022-07-02 20:28 | disposition home or self-care (01) ==
PROVIDERS: Emergency Provider Emergency Medicine; PCP Family Medicine
DX: K29.70 Gastritis, unspecified, without bleeding (principal); R11.0 Nausea; I48.91 Unspecified atrial fibrillation; I25.10 Atherosclerotic heart disease of native coronary artery without angina pectoris; E11.9 Type 2 diabetes mellitus without complications; I10 Essential (primary) hypertension; E78.5 Hyperlipidemia, unspecified; E03.9 Hypothyroidism, unspecified; M19.90 Unspecified osteoarthritis, unspecified site; K21.9 Gastro-esophageal reflux disease without esophagitis; K58.9 Irritable bowel syndrome, unspecified; H35.30 Unspecified macular degeneration; Z95.5 Presence of coronary angioplasty implant and graft; Z85.51 Personal history of malignant neoplasm of bladder; Z85.828 Personal history of other malignant neoplasm of skin; Z87.19 Personal history of other diseases of the digestive system; Z86.2 Personal history of diseases of the blood and blood-forming organs and certain disorders involving the immune mechanism; Z86.718 Personal history of other venous thrombosis and embolism; Z98.49 Cataract extraction status, unspecified eye; Z90.710 Acquired absence of both cervix and uterus; Z79.84 Long term (current) use of oral hypoglycemic drugs; Z79.01 Long term (current) use of anticoagulants
CPT/HCPCS: 36415; 71046; 74019; 80053; 83690; 84484; 85025; 85610; 85730; 93005; 96374; 96375; 99284; C9113; J2405; J2765

== ENCOUNTER 2022-08-23 01:01 | Day surgery (SDC) | payer MEDICARE, OTHER, SELFPAY ==
[2022-08-15 11:10] VITALS: BMI 23.8
--- NOTE | 2022-08-22 08:17 | WPDANESEPPF ---
Anes - Initial Pre Proc Eval Procedure: Operation Date: 08/23/22 09:00 Proposed Procedures p Flexible Sigmoidoscopy - Cristobal Sánchez MD Date/Time: 08/22/22 08:17 Surgeon: Cristobal Sánchez MD Pre Op Diagnosis: Rectal Pain Patient Data Age: 81 Gender: F Height: 1.65 m Weight: 65 kg Allergies Allergy/AdvReac Type Severity Reaction Status Date / Time dimenhydrinate Allergy Unknown THROAT Verified 08/23/22 08:14 SWELLING iodine Allergy Unknown Rash Verified 08/23/22 08:14 Contrast Media Allergy Intermediate RASH Uncoded 08/15/22 11:11 Home Medications Medication Instructions Recorded Confirmed Type PreserVision AREDS-2 1 tab-cap PO DAILY 08/16/19 08/23/22 History apixaban 5 mg tablet (Eliquis) 5 mg PO BID 08/16/19 08/23/22 History metoprolol succinate 25 mg 25 mg PO DAILY 08/16/19 08/23/22 History tablet,extended release 24 hr nitroglycerin 0.4 mg sublingual 0.4 mg sublingual PRN PRN Chest 08/16/19 08/23/22 History tablet Pain pen needle, diabetic 32 gauge x #200 ea 07/04/20 08/23/22 Rx 1/4 (Novofine 32) gabapentin 300 mg capsule 300 mg PO QHS #30 caps 10/07/20 08/23/22 Rx levothyroxine 50 mcg capsule 50 mcg PO DAILY #1 cap 10/10/20 08/23/22 Rx triamcinolone acetonide 0.1 % 1 applic topical DAILY PRN Pain 08/31/21 08/23/22 History topical cream metformin 500 mg tablet,extended 1,000 mg PO DAILY #180 tabs 10/17/21 08/23/22 Rx release 24 hr hydrochlorothiazide 25 mg tablet 25 mg PO DAILY #90 tabs 10/30/21 08/23/22 Rx escitalopram oxalate 10 mg tablet 10 mg PO DAILY #7 tabs 12/19/21 08/23/22 Rx isosorbide mononitrate 60 mg 60 mg PO DAILY #7 tabs 12/19/21 08/23/22 Rx tablet,extended release 24 hr empagliflozin 25 mg tablet 25 mg PO DAILY 02/16/22 08/23/22 History (Jardiance) irbesartan 75 mg tablet 1 tablet DAILY 02/16/22 08/23/22 History amlodipine 10 mg-atorvastatin 40 1 tablet PO DAILY #90 tabs 05/04/22 08/23/22 Rx mg tablet dulaglutide 0.75 mg/0.5 mL 0.75 mg (0.5 mL) subcut WEEKLY #2 06/18/22 08/23/22 Rx subcutaneous pen injector mL (Trulicity) potassium chloride 8 mEq 8 meq PO DAILY #90 caps 06/18/22 08/23/22 Rx capsule,extended release ondansetron 4 mg disintegrating 4 mg PO Q8H PRN nausea and 07/02/22 08/23/22 Rx tablet vomiting #14 tabs omeprazole 40 mg capsule,delayed 40 mg PO DAILY 1 month #30 caps 07/17/22 08/23/22 Rx release glipizide 5 mg tablet 5 mg PO DAILY 08/15/22 08/23/22 History linaclotide 72 mcg capsule 72 mcg PO DAILY 08/15/22 08/23/22 History (Linda) Patient hx anesthesia problems: none Family hx anesthesia problems: none Results Review: All pre-operative results and documents have been reviewed as part of the pre-operative evaluation. [facility] Past Medical History Medical History (Updated 08/22/22 @ 12:56 by Cristobal Sánchez MD) Afib Anemia Anxiety Arthritis Bladder cancer Blind Bowel obstruction CAD (coronary artery disease) Cataracts, bilateral Chronic right hip pain Closed fracture of proximal phalanx of lesser toe of right foot Depression Diabetes a1c was 7.17 aug 2019 Diverticulitis Dizziness DVT (deep venous thrombosis) Elbow fracture, left GERD (gastroesophageal reflux disease) Headache Heart attack Hemoglobin A1C between 7% and 9% indicating borderline diabetic control Hepatitis A History of blood transfusion History of rectal polyps HTN (hypertension) Hyperlipidemia Hypothyroid IBS (irritable bowel syndrome) Macular degeneration Menieres disease Seasonal allergies Skin cancer TIA (transient ischemic attack) Toe fracture Vision changes Surgical History Surgical History Greater trochanteric bursitis of right hip surgical re-debridement January 2020 H/O local excision of skin lesion History of angioplasty History of appendectomy History of back surgery History of bladder surgery History of brain surgery History of cardiac catheterization Histo
--- NOTE | 2022-08-22 12:55 | PM.HPGS ---
History of Present Illness History of Present Illness Consent: Risks, benefits, and alternatives have been discussed and questions answered. Patient agrees to proceed with procedure. Chief complaint: Rectal Pain Narrative: Britney Escobar is a 81 year old female -Since June she c/o to have lower rectal pain prior to BM that last 30 mins after BM. Denies any improvement in symptoms despite improvement in constipation. -No fecal impaction or hemorrhoids noted on rectal exam In our office -will send in hydrocortisone suppositories. -last colonoscopy in 2017, with 22 mm polyps in removed in the cecum.? She also had extensive diverticulosis of the sigmoid colon. polyp was tubular adenomatous in nature, negative for high-grade dysplasia, margins free of dysplasia. -CT scan with no etiology to explain her symptoms and KUB on 06/28 with moderate amount of stool in colon but no obstructions. Repeat KUB on 07/02 with no radiographic evidence of an ileus.? Review of Systems Review of Systems: All systems reviewed & are unremarkable except as noted in HPI and below PMFSH Past Medical History Medical History Afib Anemia Anxiety Arthritis Bladder cancer Blind Bowel obstruction CAD (coronary artery disease) Cataracts, bilateral Chronic right hip pain Closed fracture of proximal phalanx of lesser toe of right foot Depression Diabetes a1c was 7.17 aug 2019 Diverticulitis Dizziness DVT (deep venous thrombosis) Elbow fracture, left GERD (gastroesophageal reflux disease) Headache Heart attack Hemoglobin A1C between 7% and 9% indicating borderline diabetic control Hepatitis A History of blood transfusion History of rectal polyps HTN (hypertension) Hyperlipidemia Hypothyroid IBS (irritable bowel syndrome) Macular degeneration Menieres disease Seasonal allergies Skin cancer TIA (transient ischemic attack) Toe fracture Vision changes Surgical History Surgical History Greater trochanteric bursitis of right hip surgical re-debridement January 2020 H/O local excision of skin lesion History of angioplasty History of appendectomy History of back surgery History of bladder surgery History of brain surgery History of cardiac catheterization History of cataract surgery History of coronary artery stent placement History of coronary artery stent placement History of foot surgery Left History of hernia repair History of hip surgery Right hip abductor repair History of hysterectomy History of ileal conduit History of tonsillectomy Family History Family History Mother Diabetes mellitus Hypertension Family history of coronary artery disease Sibling Diabetes mellitus Hypertension Family history of malignant neoplasm Carcinoma of colon Family history of Alzheimer's disease Family history of malignant neoplasm of bone Family history of coronary artery disease Social History Social History Social History: Years smoked: 12 Smoking status: Former smoker Tobacco type: cigarettes Second hand tobacco smoke exposure: No Smoking end date: 08/12/99 Alcohol intake: current Alcohol use details: rarely Substance use: never Substance use type: does not use Living arrangements: with family Additional living arrangements comments: Gender identity (if verbalized by the patient): Female Sexual Orientation (if Verbalized by the Patient): Straight or Heterosexual Spiritual care concerns: No Meds Home Medications and Allergies Home Medications Medication Instructions Recorded Confirmed Type PreserVision AREDS-2 1 tab-cap PO DAILY 08/16/19 08/23/22 History apixaban 5 mg tablet (Eliquis) 5 mg PO BID 08/16/19 08/23/22 History metoprolol succinate 25 mg 25 mg PO DAILY 08/16/19 08/23/22 H
[2022-08-23 08:15] VITALS: BP 124/73; PULSE 79; RESP 16; TEMP 36.1; O2SAT 100; BMI 23.9
[2022-08-23 08:24] LABS: Glucose Point of Care 123 mg/dl (65-105)
[2022-08-23] MEDS: LACTATED RINGERS 1,000 ML 150 ML IV CONT (08:36)
[2022-08-23 09:12] VITALS: BP 112/67; PULSE 75; RESP 19; O2SAT 96
[2022-08-23 09:22] VITALS: BP 126/68; PULSE 73; RESP 18; O2SAT 100
[2022-08-23 09:32] VITALS: BP 130/69; PULSE 73; RESP 17; O2SAT 100
== END 2022-08-23 09:42 | disposition home or self-care (01) ==
PROVIDERS: PCP Family Medicine; Visit Provider Internal Medicine Gastroenterology
PROC: 0DJD8ZZ Inspection of Lower Intestinal Tract, Via Natural or Artificial Opening Endoscopic (ICD-10-PCS; CPT 45330; principal; 2022-08-23 09:00)
DX: K62.89 Other specified diseases of anus and rectum (principal); K64.8 Other hemorrhoids; K57.30 Diverticulosis of large intestine without perforation or abscess without bleeding; Z86.010 Personal history of colon polyps; I48.91 Unspecified atrial fibrillation; I25.10 Atherosclerotic heart disease of native coronary artery without angina pectoris; I10 Essential (primary) hypertension; E78.5 Hyperlipidemia, unspecified; I25.2 Old myocardial infarction; K21.9 Gastro-esophageal reflux disease without esophagitis; E03.9 Hypothyroidism, unspecified; E11.9 Type 2 diabetes mellitus without complications; D64.9 Anemia, unspecified; F41.9 Anxiety disorder, unspecified; F32.A Depression, unspecified; H35.30 Unspecified macular degeneration; Z85.51 Personal history of malignant neoplasm of bladder; Z86.718 Personal history of other venous thrombosis and embolism; Z86.73 Personal history of transient ischemic attack (TIA), and cerebral infarction without residual deficits; Z95.5 Presence of coronary angioplasty implant and graft; Z87.891 Personal history of nicotine dependence; Z79.01 Long term (current) use of anticoagulants; Z79.84 Long term (current) use of oral hypoglycemic drugs; Z79.899 Other long term (current) drug therapy
CPT/HCPCS: 45330; 82948; J2370; J2704; J7120

== ENCOUNTER 2023-02-05 08:54 | Outpatient (CLI) | payer MEDICARE, OTHER, SELFPAY ==
--- NOTE | ~2023-02-05 | DEXA_ITS ---
Bone Density Report Name: KYRA JAMES Age: 82 Sex: Female Ethnicity: White Date of : 1940 Indication: postmenopausal; screening for osteoporosis; height loss; inflammatory bowel disease; cancer; hysterectomy; Referring Provider: MCKENZIE KIRBY Study: Bone densitometry was performed. Exam Date: February 05, 2023 Accession number: [id number] Bone Density: Region BMD T-score Z-score Classification AP Spine(L1-L4) 1.105 0.5 3.3 Normal Femoral Neck (Left) 0.508 -3.1 -0.6 Osteoporosis Total Hip (Left) 0.578 -3.0 -0.7 Osteoporosis Femoral Neck (Right) 0.575 -2.5 0.0 Osteoporosis Total Hip (Right) 0.617 -2.7 -0.4 Osteoporosis Total Hip Mean 0.598 -2.9 -0.6 Osteoporosis World Health Organization criteria for BMD impression classify patients as: Normal (T-score at or above -1.0), Osteopenia (T-score between -1.0 and -2.5), or Osteoporosis (T-score at or below -2.5). 10-year Fracture Risk: FRAX not reported because: Some T-score for Spine Total or Hip Total or Femoral Neck at or below -2.5 Clinical Information Provided by Patient: Has used the following medications: Calcium Has the following medical conditions: Cancer, Inflammatory bowel diseases, Hysterectomy Patient maximum height was 65.5 Menopause Age: 45 Drinks caffeinated beverages Onset of menses at age 13 Number of children 3 Impression: The patient has osteoporosis, based on the Left Femoral Neck T-score. Discussion: INCREASED RISK OF FRACTURE. BONE DENSITY IS UNDESIRABLY LOW AT ONE OR MORE SKELETAL SITES, CONSISTENT WITH POSTMENOPAUSAL OSTEOPOROSIS. This patient's lowest T-score meets the World Health Organization's (WHO) criteria for osteoporosis at one or more sites (T-score -2.5 or below). In untreated patients, the risk of osteoporotic fracture increases approximately two-fold for each 1.0 SD decrease in T-score. Low bone density is not the only risk factor for fracture; also consider factors such as patient's age, frailty or poor health, risk of falling, risk of injury, previous osteoporotic fracture, family history of osteoporosis, cigarette smoking, low body weight, etc. Not everyone with low bone mineral density has osteoporosis; osteomalacia and other metabolic bone disorders should also be considered. Patients who have osteoporosis should be evaluated for specific diseases and conditions (secondary causes) that may cause or contribute to bone loss. The [place] Association [employer] Clinical Endocrinologists (AACE) and National Osteoporosis Foundation (NOF) recommend pharmacologic intervention for all postmenopausal women whose T-score is in this range. The patient should follow a healthful lifestyle (good nutrition with adequate calcium and vitamin D, and appropriate weight-bearing exercise). Follow-Up: Consider a repeat BMD and Ve
== END 2023-02-05 08:55 | disposition home or self-care (01) ==
PROVIDERS: PCP Family Medicine; Visit Provider Family Medicine
DX: Z78.0 Asymptomatic menopausal state (principal); M81.0 Age-related osteoporosis without current pathological fracture
CPT/HCPCS: 77080

== ENCOUNTER → 2023-05-03 13:57 | Outpatient (CLI) | payer MEDICARE, OTHER, SELFPAY ==
--- NOTE | ~2023-05-03 | XR_ITS ---
XR lumbar spine min 4V 05/03/2023 14:38 Indication: Postlaminectomy syndrome. Procedure: 5 views lumbar spine Comparison: 10/10/2021 Findings: There is levoscoliosis centered at L3-4. There is disc narrowing and endplate degenerative change at all lumbar levels. No acute fracture or traumatic malalignment. There are prominent margin al osteophytes at multiple levels. Interval placement of stimulator leads overlying the sacrum and up per lumbar spine. There is atherosclerosis of the aorta. No acute fracture or traumatic malalignment. There is an ostomy site overlying the right pelvis. There are changes of previous ventral hernia rep air. Impression: 1: Severe lumbar spondylosis with levoscoliosis. Reviewed, dictated and finalized at location A. Impression: 1: Severe lumbar spondylosis with levoscoliosis.
--- NOTE | ~2023-05-03 | CT_ITS ---
EXAMINATION: CT lumbar spine wo con DATE: 05/03/2023 14:47 INDICATION: Postlaminectomy syndrome. TECHNIQUE: Computed tomography (CT) of the lumbar spine was performed without intravenous contrast. A utomated exposure control and iterative reconstruction technique were employed. The dose-length produ ct was 531.24 mGy-cm. COMPARISON: None FINDINGS: There are surgical clips in the retroperitoneum from lymph node dissection. There is calcif ied atherosclerosis of the aorta and many of the other arteries. There is 21 degrees levoscoliosis of lumbar spine. There is 5 mm retrolisthesis of L2 on L3 and 3 mm retrolisthesis of L3 on L4. There is mild chronic anterior wedging of L1 and L2 vertebral bodies. There is severely decreased disc height at L2-L3 and L3-L4, moderately decreased disc height at L4-L5, and severely decreased disc height at L5-S1. There is an electrode coiled in right epidural space at S1 with tip in the right S1 neural fo ramen. There is an epidural electrode coiled at T12 and L1 with tip in the right L1-L2 neural foramen . The following disc levels are specifically discussed: L1-L2: The disc is bulging. There is severe bilateral facet joint osteoarthritis. There is mild left neural foraminal stenosis. There is no central canal stenosis. L2-L3: The disc is bulging. There is mild bilateral facet joint osteoarthritis. There is moderate rig ht and mild left neural foraminal stenosis. There is mild central canal stenosis. There are changes o f posterior decompression. L3-L4: The disc is bulging. There is severe bilateral facet joint osteoarthritis. There is moderate b ilateral neural foraminal stenosis. There is mild central canal stenosis. There are changes of machine printer ior decompression. L4-L5: The disc is bulging. There is ankylosis of the facet joints with severe hypertrophy. There is mild right and moderate left neural foraminal stenosis. There is mild central canal stenosis. L5-S1: The disc is bulging. There is severe bilateral facet joint osteoarthritis. There is mild bilat eral neural foraminal stenosis. There is mild central canal stenosis. IMPRESSION: 1. Severe lumbar spondylosis. 2. Lumbar levoscoliosis. 3. Epidural electrodes in unusual positions. Reviewed, dictated and finalized at location A.
--- NOTE | ~2023-05-03 | XR_ITS ---
XR hip RT 2V w AP pelvis DATE: 05/03/2023 14:38 INDICATION: Right hip pain TECHNIQUE: AP pelvis. AP and lateral right hip. COMPARISON: 10/10/2021 bilateral hips FINDINGS: Diffuse osteopenia. There is rotatory levoscoliosis and severe degenerative disc disease of the lumbar spine. Normal alignment at the pubic symphysis and sacroiliac joints. No pelvic fracture or bone destruction. No fracture or dislocation of the hips. No avascular necros is or bone destruction is detected. Moderate bilateral hip osteoarthritis. 2 anchor devices of the right greater trochanter. There is atherosclerotic calcification of the abdominal aorta and iliac arteries. Left generator device. Postoperative changes including right lower quadrant ostomy. IMPRESSION: Osteopenia Moderate bilateral hip osteoarthritis Rotatory levoscoliosis and prominent multilevel degenerative disc disease Reviewed, dictated and finalized at location A.
== END ==
PROVIDERS: PCP Neurological Surgery; Visit Provider Pain Medicine Pain Medicine
DX: M96.1 Postlaminectomy syndrome, not elsewhere classified (principal); M47.896 Other spondylosis, lumbar region; M16.0 Bilateral primary osteoarthritis of hip
CPT/HCPCS: 72110; 72131; 73502

== ENCOUNTER → 2023-09-11 11:49 | Outpatient (CLI) | payer MEDICARE, OTHER, SELFPAY ==
--- NOTE | ~2023-09-11 | XR_ITS ---
Thoracic spine: Clinical Indication: Back pain AP and lateral views were performed. No fracture is seen. There is normal alignment of the vertebrae. The intervertebral disc spaces appe ar normal. Paravertebral soft tissues appear normal. Impression: No significant abnormalities noted. Reviewed, dictated and finalized at [facility]. T PATHOLOGIST Impression: No significant abnormalities noted.
== END ==
PROVIDERS: PCP Family Medicine; Visit Provider Neurological Surgery
DX: S34.109A Unspecified injury to unspecified level of lumbar spinal cord, initial encounter (principal); X58.XXXA Exposure to other specified factors, initial encounter
CPT/HCPCS: 72072

== ENCOUNTER 2023-11-15 10:03 | Emergency (ER) | payer MEDICARE, OTHER, SELFPAY ==
--- NOTE | ~2023-11-15 | XR_ITS ---
EXAMINATION: XR wrist LT min 3V DATE: 11/15/2023 10:53 INDICATION: Left wrist pain. TECHNIQUE: 3 views of left wrist were obtained. COMPARISON: None. FINDINGS: Bone alignment is normal. No fracture. There is mild osteoarthritis of first carpometacarpa l joint. There is degenerative cystic change in ulnar aspect of proximal lunate, consistent with ulno lunate impaction syndrome. There are dystrophic calcifications about the wrist. IMPRESSION: 1. Polyarticular osteoarthritis. Reviewed, dictated and finalized at location A.
[2023-11-15 10:16] VITALS: BP 133/74; PULSE 82; RESP 16; TEMP 36.6; O2SAT 98
[2023-11-15 10:18] VITALS: BP 133/74; PULSE 82; RESP 16; TEMP 36.6; O2SAT 98
--- NOTE | 2023-11-15 10:34 | ED.UPPEXIN ---
HPI - Extremity Injury (Upper) General Chief Complaint: Extremity Injury, Upper Stated Complaint: left wrist pain Time Seen by Provider: 11/15/23 10:34 Source: patient Mode of arrival: ambulatory Limitations: no limitations History of Present Illness HPI narrative: 83-year-old female presents with pain to left wrist for 3 days. Patient has warmth, redness and swelling. Decreased range of motion due to pain. was cleaning out a closet in moving clothes into a no other. States she was carrying a load clothes on hangers with left hand and thinks was too heavy. Cause wrist to bed and. Concerned I snapped a bone . Has not taking any [id number] pain medicine. States she does not like to take medications. All systems reviewed and negative except as noted above. Related Data Home Medications Medication Instructions Recorded Confirmed PreserVision AREDS-2 1 tab-cap PO DAILY 08/16/19 11/15/23 apixaban 5 mg tablet (Eliquis) 5 mg PO BID 08/16/19 11/15/23 metoprolol succinate 25 mg 25 mg PO DAILY 08/16/19 11/15/23 tablet,extended release 24 hr nitroglycerin 0.4 mg sublingual 0.4 mg sublingual PRN PRN Chest 08/16/19 11/15/23 tablet Pain triamcinolone acetonide 0.1 % 1 applic topical DAILY PRN Pain 08/31/21 11/15/23 topical cream irbesartan 75 mg tablet 1 tablet DAILY 02/16/22 11/15/23 linaclotide 72 mcg capsule 72 mcg PO DAILY 08/15/22 11/15/23 (Linzess) Allergies Allergy/AdvReac Type Severity Reaction Status Date / Time dimenhydrinate Allergy Severe THROAT Verified 11/15/23 10:11 SWELLING iodine Allergy Intermediate Rash Verified 11/15/23 10:11 Contrast Media Allergy Intermediate RASH Uncoded 11/15/23 10:11 Review of Systems Review of Systems: CONSTITUTIONAL: Denies fever, chills, or sweats. EYES: Denies visual changes, redness, or discharge. ENT: Denies rhinorrhea, congestion, sore throat, or otalgia. CARDIOVASCULAR: Denies chest pain, palpitations, or edema. RESPIRATORY: Denies cough or dyspnea. GASTROINTESTINAL: Denies abdominal pain, nausea, vomiting, or diarrhea. GENITOURINARY: Denies dysuria or hematuria. SKIN: Denies rash or itching. MUSCULOSKELETAL: Reports pain, swelling, decreased range of motion to left wrist. NEUROLOGIC: Denies headache, numbness, or weakness. PSYCHIATRIC: Denies anxiety or depression. All other systems reviewed are negative, except as documented in HPI. [facility] Past Medical History Medical History Afib Anemia Anxiety Arthritis Bladder cancer Blind Bowel obstruction CAD (coronary artery disease) Cataracts, bilateral Chronic right hip pain Closed fracture of proximal phalanx of lesser toe of right foot Depression Diabetes Diverticulitis Dizziness DVT (deep venous thrombosis) Elbow fracture, left GERD (gastroesophageal reflux disease) Headache Heart attack Hemoglobin A1C between 7% and 9% indicating borderline diabetic control Hepatitis A History of blood transfusion History of rectal polyps HTN (hypertension) Hyperlipidemia Hypothyroid IBS (irritable bowel syndrome) Macular degeneration Menieres disease Seasonal allergies Skin cancer TIA (transient ischemic attack) Toe fracture Vision changes Surgical History Surgical History Greater trochanteric bursitis of right hip surgical re-debridement January 2020 H/O local excision of skin lesion History of angioplasty History of appendectomy History of back surgery History of bladder surgery History of brain surgery History of cardiac catheterization History of cataract surgery History of coronary artery stent placement History of coronary artery stent placement History of foot surgery Left History of hernia repair History of hip surgery Right hip abductor repair History of hysterectomy History of ileal conduit History of tonsillectomy Family History Family History (Reviewed
== END 2023-11-15 11:23 | disposition home or self-care (01) ==
PROVIDERS: Emergency Provider Nurse Practitioner Family; PCP Family Medicine
DX: M19.032 Primary osteoarthritis, left wrist (principal); Z87.891 Personal history of nicotine dependence; I48.91 Unspecified atrial fibrillation; D64.9 Anemia, unspecified; M19.90 Unspecified osteoarthritis, unspecified site; I25.10 Atherosclerotic heart disease of native coronary artery without angina pectoris; E11.9 Type 2 diabetes mellitus without complications; Z86.718 Personal history of other venous thrombosis and embolism; K21.9 Gastro-esophageal reflux disease without esophagitis; I25.2 Old myocardial infarction; I10 Essential (primary) hypertension; E78.5 Hyperlipidemia, unspecified; E03.9 Hypothyroidism, unspecified; H35.30 Unspecified macular degeneration; Z85.828 Personal history of other malignant neoplasm of skin; Z85.51 Personal history of malignant neoplasm of bladder; Z86.73 Personal history of transient ischemic attack (TIA), and cerebral infarction without residual deficits; Z95.5 Presence of coronary angioplasty implant and graft; Z79.01 Long term (current) use of anticoagulants
CPT/HCPCS: 73110; 99213; G0463

== ENCOUNTER 2024-03-03 09:57 | Outpatient (CLI) | payer MEDICARE, OTHER, SELFPAY ==
--- NOTE | 2024-03-03 | ECG_ITS ---
Test Date: 2024-03-03 11:26:33 Measurements Intervals [place] Rate: 64 P: 25 KS: 164 QRS: 12 QRSD: 111 T: 61 QT: 424 QTc: 438 Interpretive Statements SINUS RHYTHM WITH OCCASIONAL SUPRAVENTRICULAR PREMATURE COMPLEXES CANNOT R/O SEPTAL INFARCT, AGE INDETERMINATE BASELINE ARTIFACT- I, II, III, AVR, AVL, AVF ABNORMAL ECG No previous ECG available for comparison Electronically Signed On 03-03-2024 11:47:05 CDT by Alex Singh D.O.
[2024-03-03 11:22] LABS: Basophils Absolute Auto 0.1 K/mm3 (0.0-0.1); Basophils Percent Auto 0.7 % (0.2-1.2); Eosinophils Absolute Auto 0.3 K/mm3 (0-0.3); Eosinophils Percent Auto 4.5 % (0-4.4); Hematocrit 43.2 % (37.0-47.0); Hemoglobin 14.1 g/dL (12.0-15.0); Immature Granulocyte Absolute 0.02 K/mm3 (0.00-0.031); Immature Granulocyte Percent A 0.3 % (0-0.5); Lymphocytes Absolute Auto 1.29 K/mm3 (0.9-3.2); Lymphocytes Percent Auto 16.9 % (18.3-44.2); Mean Corpuscular HGB Conc 32.6 g/dl (32-36); Mean Corpuscular Hemoglobin 29.9 pg (26-34); Mean Corpuscular Volume 91.5 fl (80-100); Mean Platelet Volume 9.4 fl (7.4-10.4); Monocytes Absolute Auto 0.6 K/mm3 (0.1-0.6); Monocytes Percent Auto 7.5 % (2.6-8.5); Neutrophils Absolute Auto 5.4 K/mm3 (1.3-6.7); Neutrophils Percent Auto 70.1 % (45.5-73.1); Platelet Count Result 251 k/mm3 (150-375); Red Blood Count 4.72 M/mm3 (4.2-5.4); Red Cell Distribution Width 13.4 % (11.5-14.5); White Blood Count 7.6 K/mm3 (4.5-10.0)
[2024-03-03 11:39] LABS: Anion Gap 11 mmol/L (4-12); Blood Urea Nitrogen 32 mg/dL (7-17); Carbon Dioxide 24 mmol/L (22-30); Chloride 107 mmol/L (98-107); Potassium 3.6 mmol/L (3.4-5.0); Sodium 142 mmol/L (137-145)
[2024-03-03 11:40] LABS: Alanine Aminotransferase 14 U/L (6-35); Albumin Level 4.5 g/dL (3.5-5.1); Alkaline Phosphatase 54 U/L (38-126); Aspartate Amino Transferase 22 U/L (14-36); Bilirubin,Total 0.7 mg/dL (0.2-1.3); CRP < 0.5 mg/dL (<1.0); Calcium 9.8 mg/dL (8.4-10.2); Estimated Glomerular Filt Rate 43; Glucose 104 mg/dL (65-110)
[2024-03-03 11:57] LABS: Appearance Urine Cloudy (Clear); Bacteria Urine 4+ /hpf; Bilirubin Urine Negative (Negative); Blood Urine Negative (Negative); Color Urine Yellow (Yellow); Glucose Urine UA Negative (Negative); Ketones Urine Negative (Negative); Leukocyte Esterase Ur 3+ LEU/UL (Negative); Need Manual Microscopic Reviewed; Nitrate Urine Negative (Negative); Protein Urine 1+ mg/dL (Negative); RBC Urine 0-2 /hpf (0-2); Squamous Epithelial Cell Urine None Seen /hpf (Few); Urobilinogen Urine 0.2 mg/dL (<2.0); WBC Urine 21-50 /hpf (0-3); pH Urine 7.5 (5.0-9.0)
[2024-03-03 12:00] LABS: Add Urine Microscopic? YES
[2024-03-03 13:07] LABS: Erythrocyte Sedimentation Rate 16 mm/hr (0-20)
== END 2024-03-03 09:58 | disposition home or self-care (01) ==
PROVIDERS: PCP Family Medicine; Visit Provider Pain Medicine Pain Medicine
DX: Z01.818 Encounter for other preprocedural examination (principal); R94.31 Abnormal electrocardiogram [ECG] [EKG]; I49.3 Ventricular premature depolarization; Z79.899 Other long term (current) drug therapy
CPT/HCPCS: 36415; 80053; 81001; 85025; 85652; 86140; 87077; 87086; 87088; 87186; 93005

== ENCOUNTER 2024-06-02 11:47 | Inpatient (IN) | payer MEDICARE, OTHER, SELFPAY ==
--- NOTE | ~2024-06-02 | CT_ITS ---
EXAMINATION: CT brain wo con DATE: 06/02/2024 12:40 INDICATION: Head injury. TECHNIQUE: Computed tomography (CT) of the head was performed without intravenous contrast. The mA wa s adjusted according to patient size. Iterative reconstruction technique was employed. The dose-lengt h product was 681.00 mGy-cm. COMPARISON: Head CT 12/07/2019 FINDINGS: There are scattered areas of low attenuation in the cerebral white matter, which is within normal limits for the patient's age. There is no intracranial hemorrhage, acute infarction, or abnorm al intracranial mass lesion. There is an old lacunar infarct in the right basal ganglia. The ventricl es are normal in size. There are likely changes of ocular lens replacement surgeries. There is mild m ucosal thickening in the ethmoid sinuses. The mastoid air cells are normal. There are changes of righ t-sided craniotomy. IMPRESSION: 1. Old lacunar infarct in the right basal ganglia. Reviewed, dictated and finalized at location A.
--- NOTE | ~2024-06-02 | XR_ITS ---
EXAMINATION: XR surgery orthopedic DATE: 06/03/2024 14:12 INDICATION: Right hip intertrochanteric nailing TECHNIQUE: 4 fluoroscopic images of the right hip were obtained during procedure performed by . Radiologist was not present for the imaging or procedure. The amount of fluoroscopy time used during this procedure was 2.5 minutes. Total DAP was 1.256 mGycm^2 COMPARISON: None. FINDINGS: Interval open reduction and internal fixation of the comminuted intratrochanteric fracture of the pro ximal right femur with antegrade intramedullary libertad and femoral neck dynamic compression screw fixati on. Alignment appears near-anatomic. No new fractures identified. Couple suture anchors are again see n at the right greater trochanter likely from prior medial tendon repair. There are few surgical clip s in the right hemipelvis. IMPRESSION: 1. Near-anatomic alignment post open reduction internal fixation of a comminuted intratrochanteric fr acture of the proximal right femur. See procedure note for further detail. Reviewed, dictated and finalized at location A. IMPRESSION: 1. Near-anatomic alignment post open reduction internal fixation of a comminute d intratrochanteric fracture of the proximal right femur. See procedure note fo r further detail.
--- NOTE | ~2024-06-02 | XR_ITS ---
CHEST RADIOGRAPH CLINICAL HISTORY: FALL, DEFORMITY, PAIN . COMPARISON: 07/02/2022 TECHNIQUE: Single portable view of the chest. FINDINGS The cardiomediastinal silhouette is unremarkable. The lungs are clear. Visualized osseous structures and soft tissues are unremarkable. IMPRESSION: No focal infiltrate or effusion. Reviewed, dictated and finalized at location A.
--- NOTE | ~2024-06-02 | XR_ITS ---
EXAMINATION: XR hip RT 2V w AP pelvis DATE: 06/02/2024 12:57 INDICATION: Right hip deformity. Pain. TECHNIQUE: An anteroposterior view of the pelvis and 2 views of right hip were obtained. COMPARISON: Pelvis and right hip radiographs 05/03/2023 FINDINGS: There is lumbar levocurvature and severe spondylosis. There is a comminuted intertrochanter ic fracture of proximal right femur. The main distal fracture fragment demonstrates 15 degrees varus angulation, impaction, and posterior angulation. There is mild osteoarthritis of the hips. Osteitis p ubis is noted. Surgical clips overlie the abdomen and pelvis. There are suture anchors in right great er trochanter. A pump overlies the left abdomen. IMPRESSION: 1. Comminuted intertrochanteric fracture of proximal right femur. 2. Mild osteoarthritis of the hips. Reviewed, dictated and finalized at location A.
--- NOTE | ~2024-06-02 | CT_ITS ---
EXAMINATION: CT cervical spine wo con DATE: 06/02/2024 12:41 INDICATION: Neck injury. Fall. TECHNIQUE: Computed tomography (CT) of the cervical spine was performed without intravenous contrast. Automated exposure control and iterative reconstruction technique were employed. The dose-length pro duct was 204.14 mGy-cm. COMPARISON: None FINDINGS: There is a 2.4 cm nodule in left thyroid lobe. There is mild scarring at the lung apices. C 1 ring is ununited posteriorly, a normal variant. Alignment is normal. Vertebral body heights are nor mal. There is mildly decreased disc height at C3-C4 and C5-C6. The following disc levels are specific ally discussed: C2-C3: There is no uncovertebral joint osteoarthritis. There is severe bilateral facet joint osteoart hritis. There is mild left neural foraminal stenosis. There is mild central canal stenosis. C3-C4: There is mild right and severe left uncovertebral joint osteoarthritis. There is severe bilate ral facet joint osteoarthritis. There is mild bilateral neural foraminal stenosis. There is no centra l canal stenosis. C4-C5: There is ankylosis of left uncovertebral joint without hypertrophy. There is ankylosis of the facet joints with mild hypertrophy. There is no neural foraminal stenosis. There is no central canal stenosis. C5-C6: There is mild bilateral uncovertebral joint osteoarthritis. There is mild right and severe lef t facet joint osteoarthritis. There is no neural foraminal stenosis. There is mild central canal sten osis. C6-C7: There is no uncovertebral joint osteoarthritis. There is severe bilateral facet joint osteoart hritis. There is no neural foraminal stenosis. There is mild central canal stenosis. C7-T1: There is no uncovertebral joint osteoarthritis. There is moderate right and severe left facet joint osteoarthritis. There is mild left neural foraminal stenosis. There is no central canal stenosi s. IMPRESSION: 1. No fracture. 2. Mild cervical spondylosis. Reviewed, dictated and finalized at location A.
--- NOTE | ~2024-06-02 | CT_ITS ---
EXAMINATION: CT thoracic lumbar wo con DATE: 06/04/2024 13:11 INDICATION: Swelling after spine procedure. Fall. TECHNIQUE: Computed tomography (CT) of the thoracic and lumbar spine was performed without intravenou s contrast. Automated exposure control and iterative reconstruction technique were employed. The dose -length product was 826.63 mGy-cm. COMPARISON: CT lumbar spine 05/03/2023 FINDINGS: CT THORACIC SPINE: There is 16 degrees dextroscoliosis of thoracic spine. There is mild chronic anter ior wedging of T11 and T12 vertebral bodies. There is mild chronic height loss of T3 vertebral body. There is mildly decreased disc height at T4-T5 and T5-T6. There is multilevel severe facet joint oste oarthritis. There is multilevel mild neural foraminal stenosis on either side. On the right, there is moderate neural foraminal stenosis at T8-T9. On the left, there is moderate neural foraminal stenosi s at T5-T6, T6-7 T7, T7-T8, and T8-T9. There is mild central canal stenosis at T7-T8. There is an int rathecal catheter with tip at T7. CT LUMBAR SPINE: There is mild bilateral hydronephrosis and hydroureter. There is a 3.9 x 5.6 x 1.7 c m subcutaneous fluid collection around the catheter at L3. There is 4 mm retrolisthesis of L2 on L3 a nd 3 mm retrolisthesis of L3 on L4. There is 19 degrees levoscoliosis of lumbar spine. There is mild chronic anterior wedging of L1 vertebral body. There is severely decreased disc height at L2-L3 and L 3-L4, moderately decreased disc height at L4-L5, and severely decreased disc height at L5-S1. There i s a retained electrode fragment in the right S1 neural foramen. The following disc levels are specifi matthew discussed: L1-L2: The disc is bulging. There is severe bilateral facet joint osteoarthritis. There is mild left neural foraminal stenosis. There is no central canal stenosis. L2-L3: The disc is bulging. There is an oblique fracture of the right L3 pedicle. There is mild bilat eral facet joint osteoarthritis. There is moderate right and mild left neural foraminal stenosis. The re is mild central canal stenosis. There is posterior decompression. L3-L4: The disc is bulging. There is severe bilateral facet joint osteoarthritis. There is moderate b ilateral neural foraminal stenosis. There is mild central canal stenosis. There is posterior decompre ssion. L4-L5: The disc is bulging. There is ankylosis of the facet joints with mild right and moderate left hypertrophy. There is mild right and moderate left neural foraminal stenosis. There is mild central c anal stenosis. L5-S1: The disc is bulging. There is severe bilateral facet joint osteoarthritis. There is mild bilat eral neural foraminal stenosis. There is mild central canal stenosis. IMPRESSION: 1. Oblique fracture of the right L3 pedicle. 2. Moderate thoracic spondylosis and severe lumbar spondylosis. 3. Scoliosis. 4. Subcutaneous fluid collection at L3 around the catheter tubing. 5. Mild bilateral hydronephrosis and hydroureter. Reviewed, dictated and finalized at location A.
--- NOTE | ~2024-06-02 | XR_ITS ---
Exam: Abdomen 2V HISTORY: Constipation COMPARISON: None. TECHNIQUE: Supine images of the abdomen and pelvis. FINDINGS: Fecal stasis within the pelvis. Air opacified cecum, ascending and transverse colons are present which are not distended. Radiodense device projects over the left lower quadrant, precluding evaluation of the underlying marek l loops. Findings consistent with prior anterior abdominal wall repair. Intramedullary libertad and screw within the right femur Significant degenerative disease within the visualized portion of the spine. IMPRESSION: Fecal stasis within the pelvis, consistent with patient's history. Reviewed, dictated and finalized at location A.
--- NOTE | ~2024-06-02 | XR_ITS ---
EXAMINATION: XR_[id number]_CR DATE: 06/02/2024 12:57 INDICATION: Right knee injury and pain. TECHNIQUE: 2 views of right knee were obtained. COMPARISON: None. FINDINGS: Alignment is normal. No fracture. There is moderate osteoarthritis of medial compartment an d mild osteoarthritis of patellofemoral compartment. There is chondrocalcinosis of the menisci. No kn ee joint effusion. IMPRESSION: 1. Moderate right knee osteoarthritis. Reviewed, dictated and finalized at location A.
[2024-06-02 11:55] VITALS: BP 162/79; PULSE 71; RESP 12; TEMP 36.7; O2SAT 98
[2024-06-02] MEDS: MORPHINE SULFATE (*CRX) 4 MG/ML INJ IV PUSH (12:18)
[2024-06-02 12:32] LABS: Basophils Absolute Auto 0.1 K/mm3 (0.0-0.1); Basophils Percent Auto 0.6 % (0.2-1.2); Eosinophils Absolute Auto 0.2 K/mm3 (0-0.3); Eosinophils Percent Auto 1.8 % (0-4.4); Hematocrit 37.7 % (37.0-47.0); Hemoglobin 12.6 g/dL (12.0-15.0); Immature Granulocyte Absolute 0.05 K/mm3 (0.00-0.031); Immature Granulocyte Percent A 0.5 % (0-0.5); Lymphocytes Absolute Auto 0.85 K/mm3 (0.9-3.2); Mean Corpuscular HGB Conc 33.4 g/dl (32-36); Mean Corpuscular Hemoglobin 29.8 pg (26-34); Mean Corpuscular Volume 89.1 fl (80-100); Mean Platelet Volume 8.6 fl (7.4-10.4); Monocytes Absolute Auto 0.5 K/mm3 (0.1-0.6); Monocytes Percent Auto 5.6 % (2.6-8.5); Neutrophils Absolute Auto 7.8 K/mm3 (1.3-6.7); Neutrophils Percent Auto 82.5 % (45.5-73.1); Platelet Count Result 273 k/mm3 (150-375); Red Blood Count 4.23 M/mm3 (4.2-5.4); Red Cell Distribution Width 14.4 % (11.5-14.5); White Blood Count 9.4 K/mm3 (4.5-10.0)
--- NOTE | 2024-06-02 12:36 | ED.LOWEXIN ---
HPI - Extremity Injury (Lower) General Chief Complaint: Extremity Injury, Lower Stated Complaint: fall,hip injury Time Seen by Provider: 06/02/24 11:53 History of Present Illness HPI Narrative: Patient tripped over her extended recliner and fell, hitting her head on the fireplace and landing on her right hip, now with severe pain. Related Data Home Medications Medication Instructions Recorded Confirmed PreserVision AREDS-2 1 tab-cap PO DAILY 08/16/19 06/02/24 apixaban 5 mg tablet (Eliquis) 5 mg PO BID 08/16/19 06/02/24 metoprolol succinate 25 mg 25 mg PO DAILY 08/16/19 06/02/24 tablet,extended release 24 hr nitroglycerin 0.4 mg sublingual 0.4 mg sublingual PRN PRN Chest 08/16/19 06/02/24 tablet Pain triamcinolone acetonide 0.1 % 1 applic topical DAILY PRN Pain 08/31/21 06/02/24 topical cream irbesartan 75 mg tablet 1 tablet DAILY 02/16/22 06/02/24 linaclotide 72 mcg capsule 72 mcg PO DAILY 08/15/22 06/02/24 (Linzess) empagliflozin 25 mg tablet 25 mg PO DAILY 06/02/24 06/02/24 (Jardiance) escitalopram oxalate 20 mg tablet 20 mg PO DAILY 06/02/24 06/02/24 metformin 500 mg tablet,extended 1,000 mg PO DAILY 06/02/24 06/02/24 release 24 hr Allergies Allergy/AdvReac Type Severity Reaction Status Date / Time dimenhydrinate Allergy Severe THROAT Verified 06/02/24 12:03 SWELLING iodine Allergy Intermediate Rash Verified 06/02/24 12:03 Contrast Media Allergy Intermediate RASH Uncoded 06/02/24 12:03 Review of Systems Review of Systems: All systems reviewed & are unremarkable except as noted in HPI and below PMFSH Past Medical History Medical History (Updated 06/02/24 @ 17:30 by Carola Vizcarra MD) Anemia Anxiety Arthritis Bladder cancer Blind Bowel obstruction Chronic anticoagulation Chronic kidney disease, stage 3 Chronic pain Chronic right hip pain Coronary artery disease Deep venous thrombosis Depression Diverticulitis Gastroesophageal reflux disease Hepatitis A History of blood transfusion History of rectal polyps Hyperlipidemia Hypertension Hypothyroidism Irritable bowel syndrome Macular degeneration Menieres disease Paroxysmal atrial fibrillation Seasonal allergies Skin cancer Transient ischemic attack Type 2 diabetes mellitus Surgical History Surgical History Greater trochanteric bursitis of right hip surgical re-debridement January 2020 H/O local excision of skin lesion History of angioplasty History of appendectomy History of back surgery History of bladder surgery History of brain surgery History of cardiac catheterization History of cataract surgery History of coronary artery stent placement History of coronary artery stent placement History of foot surgery Left History of hernia repair History of hip surgery Right hip abductor repair History of hysterectomy History of ileal conduit History of tonsillectomy Family History Family History Mother Diabetes mellitus Hypertension Family history of coronary artery disease Sibling Diabetes mellitus Hypertension Family history of malignant neoplasm Carcinoma of colon Family history of Alzheimer's disease Family history of malignant neoplasm of bone Family history of coronary artery disease Social History Social History (Updated 06/02/24 @ 15:42 by Lorie Mustafa PA-C) Social History: Surrogate medical decision maker: Code status: Smoking packs per day: 1 Smoking cigarettes per day: 20.0 Years smoked: 15 Smoking pack-years: 15.00 Smoking status: Former smoker Tobacco type: cigarettes Second hand tobacco smoke exposure: No Smoking end date: 08/12/99 Alcohol intake: never Alcohol use details: rarely Substance use: never Substance use type: opiates Other substance usage details: morphine pain pump placed about 2 months ago Do You Feel Safe in your Home?: Yes Lack of Transportation: No Lack of Food: Never True Current Housing: I Have Housing Concerned About Future Housing: No Difficulty Paying Gas/Electric Bills: No Difficulty Paying for Meds: No Currently Unemployed: No Education: High School Diploma/GED Difficulty w/ Childcare or Family Care: No Living arrangements: with family Additional living arrangements comments: Occupation/Education: retired Spiritual care concerns: No Exam Narrative: EXAMINATION OF ORGAN SYSTEMS/BODY AREAS: Constitutional: Vital signs per nursing GENERAL: Appears uncomfortable in pain HEAD: Normal with no signs of head trauma. EYES: EOMI, conjunctiva normal ENT: Hearing grossly intact LUNGS: Nonlabored breathing. HEART: [Regular rate and rhythm] ABD: [Soft], [nontender to palpation] EXT: right hip foreshortened, rotated SKIN: [No rashes or lesions.] NEURO: [Alert and oriented x 3. No gross focal sensory or strength deficits.] PSYCH: Normal affect Course Vital Signs Vital signs: Vital Signs Temperature 98.1 F 06/02/24 11:55 Pulse Rate 71 06/02/24 11:55 Respiratory Rate 12 06/02/24 11:55 Blood Pressure 162/79 H 06/02/24 11:55 Pulse Oximetry 98 06/02/24 11:55 Oxygen Delivery Room Air 06/02/24 11:55 Temperature 97.8 F 06/02/24 16:00 Pulse Rate 88 06/02/24 16:00 Respiratory Rate 22 H 06/02/24 16:00 Blood Pressure 130/74 06/02/24 16:00 Pulse Oximetry 99 06/02/24 16:00 Oxygen Delivery Room Air 06/02/24 11:55 Procedures Nerve Block Nerve Block 1: Nerve block date: 06/02/24 Nerve block time: 15:00 Time out performed: Yes Local Anesthetic: bupivacaine 0.5% Amount of anesthesia used (mL): 20 Side: right Nerve Blocks: femoral Procedure Successful: Yes Patient Tolerated Procedure: well and no complications MDM - Extremity Injury (Lower) MDM Narrative Medical decision making narrative: Patient presents after mechanical fall with right hip pain, she is on blood thinners, I did obtain imaging and unfortunately on rotation she does have a right hip fracture. Several rounds of pain medication including narcotics and ketamine given with only brief improvement in symptoms. Patient had procedure for pain pump done at [facility] recently and so asked about possible transfer there, I did discuss with transfer center however they do not have Orthopedics on-call. Discussed with our orthopedics surgeon here who will try to see if they can go to operating room today. as patient is still having severe pain and moaning continuously, she is agreeable to nerve block. See procedure note. She does have some improvement in pain after this. Discussed with hospitalist for admission. Lab Data 06/02/24 12:26 06/02/24 12:26 Labs: Lab Results 06/02/24 Range/Units 12: WBC 9.4 (4.5-10.0) K/mm3 RBC 4.23 (4.2-5.4) M/mm3 Hgb 12.6 (12.0-15.0) g/dL Hct 37.7 (37.0-47.0) % MCV 89.1 (80-100) fl MCH 29.8 (26-34) pg MCHC 33.4 (32-36) g/dl RDW 14.4 (11.5-14.5) % Plt Count 273 (150-375) k/mm3 MPV 8.6 (7.4-10.4) fl Immature Gran % (Auto) 0.5 (0-0.5) % Neut % (Auto) 82.5 H (45.5-73.1) % Lymph % (Auto) 9.0 L (18.3-44.2) % [place]ick % (Auto) 5.6 (2.6-8.5) % Eos % (Auto) 1.8 (0-4.4) % Baso % (Auto) 0.6 (0.2-1.2) % Lymph # (Auto) 0.85 L (0.9-3.2) K/mm3 [place]ick # (Auto) 0.5 (0.1-0.6) K/mm3 Eos # (Auto) 0.2 (0-0.3) K/mm3 Baso # (Auto) 0.1 (0.0-0.1) K/mm3 Abs Immat Gran (auto) 0.05 H (0.00-0.031) K/mm3 Absolute Neuts (auto) 7.8 H (1.3-6.7) K/mm3 Absolute Nucleated RBC 0.000 (0.0-0.012) K/mm3 Nucleated RBC % 0.0 (0.0-0.2) % Sodium 138 (137-145) mmol/L Potassium 3.7 (3.4-5.0) mmol/L Chloride 107 (98-107) mmol/L Carbon Dioxide 20 L (22-30) mmol/L Anion Gap 11 (4-12) mmol/L BUN 30 H (7-17) mg/dL Creatinine 1.20 H (0.7-1.0) mg/dL Estim Creat Clear Calc 28 ml/min Estimated GFR 43 L (59 - ) Glucose 178 H (65-110) mg/dL Hemoglobin A1c Pending Calcium 9.4 (8.4-10.2) mg/dL Discharge Plan Discharge Clinical Impression: Closed fracture of right hip Patient Disposition: Still a Patient Condition: Stable
[2024-06-02 12:49] LABS: Anion Gap 11 mmol/L (4-12); Blood Urea Nitrogen 30 mg/dL (7-17); Calcium 9.4 mg/dL (8.4-10.2); Carbon Dioxide 20 mmol/L (22-30); Chloride 107 mmol/L (98-107); Estimated CRCL calculation 28 ml/min; Estimated Glomerular Filt Rate 43; Glucose 178 mg/dL (65-110); Potassium 3.7 mmol/L (3.4-5.0); Sodium 138 mmol/L (137-145)
--- NOTE | 2024-06-02 13:17 | PC.NURSE ---
Provider pushed 0.24ml of Ketamine per [facility] policy RN did not administer.
--- NOTE | 2024-06-02 13:21 | PC.NURSE ---
Patient is resting peacefully at this time. Prior to MD Vizcarra administering Ketamine patient had facial grimace/ moaning and rated pain at 7 on numerical scale.
[2024-06-02 13:26] VITALS: BP 171/83; PULSE 87; RESP 19; O2SAT 100
[2024-06-02 14:51] VITALS: BP 150/78; PULSE 83; RESP 15; O2SAT 99
--- NOTE | 2024-06-02 15:30 | P.HP_ITS ---
H&P: HPI History of Present Illness Date/Time: 06/02/24 15:30 Chief Complaint: Right hip pain after a fall. Narrative: This is a very pleasant 83-year-old female with paroxysmal atrial fibrillation on chronic anticoagulation,, coronary artery disease, hypertension, hyperlipidemia, chronic kidney disease, gastroesophageal reflux disease, type 2 diabetes mellitus, hypothyroidism, bladder cancer, and chronic pain with pain pump in place who presented to the emergency department via EMS from home for evaluation of right hip pain after fall. The patient provides the following history. She lost her balance after running into an extended recliner and she fell back in onto the left side, striking her head on the fireplace and her right hip on the wood floor. She had immediate, severe pain in the hip and could not get herself up. There was no head trauma or loss of consciousness in the fall and she complains of no other injuries. She also denies recent cold and flu symptoms, chest pain, shortness of breath, nausea, vomiting, diarrhea, and dysuria. In the ED: She was afebrile on arrival. Blood pressures have been running a bit high. BMP and CBC are stable compared to previous labs. Imaging showed a com minuted intratrochanteric fracture of the proximal right femur and she is being admitted in this setting for pain control and orthopedic consultation. Review of Systems Review of Systems: 12 systems were reviewed and are negativ e except for as per HPI. [facility] Past Medical History Medical History Anemia Anxiety Arthritis Bladder cancer Blind Bowel obstruction Chronic anticoagulation Chronic kidney disease, stage 3 Chronic pain Chronic right hip pain Coronary artery disease Deep venous thrombosis Depression Diverticulitis Gastroesophageal reflux disease Hepatitis A History of blood transfusion History of rectal polyps Hyperlipidemia Hypertension Hypothyroidism Irritable bowel syndrome Macular degeneration Menieres disease Paroxysmal atrial fibrillation Seasonal allergies Skin cancer Transient ischemic attack Type 2 diabetes mellitus Surgical History Surgical History Greater trochanteric bursitis of right hip surgical re-debridement January 2020 H/O local excision of skin lesion History of angioplasty History of appendectomy History of back surgery History of bladder surgery History of brain surgery History of cardiac catheterization History of cataract surgery History of coronary artery stent placement History of coronary artery stent placement History of foot surgery Left History of hernia repair History of hip surgery Right hip abductor repair History of hysterectomy History of ileal conduit History of tonsillectomy Family History Family History Mother Diabetes mellitus Hypertension Family history of coronary artery disease Sibling Diabetes mellitus Hypertension Family history of malignant neoplasm Carcinoma of colon Family history of Alzheimer's disease Family history of malignant neoplasm of bone Family history of coronary artery disease Social History Social History (Updated 06/02/24 @ 21:40 by Lorie Mustafa PA-C) Social History: Surrogate medical decision maker: Samir Escobar, spouse. Code status: Smoking packs per day: 1 Smoking cigarettes per day: 20.0 Years smoked: 15 Smoking pack-years: 15.00 Smoking status: Former smoker Tobacco type: cigarettes Second hand tobacco smoke exposure: No Smoking end date: 08/12/99 Alcohol intake: never Alcohol use details: rarely Substance use: never Substance use type: opiates Other substance usage details: morphine pain pump placed about 2 months ago Do You Feel Safe in your Home?: Yes Lack of Transportation: No Lack of Food: Never True Current Housing: I Have Housing Concerned About Future Housing: No Difficulty Paying Gas/Electric Bills: No Difficulty Paying for Meds: No Currently Unemployed: No Education: High School Diploma/GED Difficulty w/ Childcare or Family Care: No Living arrangements: with family Additional living arrangements comments: Occupation/Education: retired Spiritual care concerns: No Meds Home Medications and Allergies Home Medications Medication Instructions Recorded Confirmed Type PreserVision AREDS-2 1 tab-cap PO DAILY 08/16/19 06/02/24 History apixaban 5 mg tablet (Eliquis) 5 mg PO BID 08/16/19 06/02/24 History metoprolol succinate 25 mg 25 mg PO DAILY 08/16/19 06/02/24 History tablet,extended release 24 hr nitroglycerin 0.4 mg sublingual 0.4 mg sublingual PRN PRN Chest 08/16/19 06/02/24 History tablet Pain pen needle, diabetic 32 gauge x #200 ea 07/04/20 06/02/24 Rx 1/4 (Novofine 32) gabapentin 300 mg capsule 300 mg PO QHS #30 caps 10/07/20 06/02/24 Rx levothyroxine 50 mcg capsule 50 mcg PO DAILY #1 cap 10/10/20 06/02/24 Rx triamcinolone acetonide 0.1 % 1 applic topical DAILY PRN Pain 08/31/21 06/02/24 History topical cream isosorbide mononitrate 60 mg 60 mg PO DAILY #7 tabs 12/19/21 06/02/24 Rx tablet,extended release 24 hr irbesartan 75 mg tablet 1 tablet DAILY 02/16/22 06/02/24 History ondansetron 4 mg disintegrating 4 mg PO Q8H PRN nausea and 07/02/22 06/02/24 Rx tablet vomiting #14 tabs linaclotide 72 mcg capsule 72 mcg PO DAILY 08/15/22 06/02/24 History (Linzess) trolamine salicylate 10 % topical 1 applic topical TID PRN muscle 08/23/22 06/02/24 Rx cream (Analgesic Creme) pain #85 grams hydrochlorothiazide 25 mg tablet 25 mg PO DAILY #90 tabs 10/23/22 06/02/24 Rx potassium chloride 8 mEq See Rx Instructions .Route 05/28/23 06/02/24 Rx capsule,extended release .COMPLEX #90 caps omeprazole 40 mg capsule,delayed 40 mg PO DAILY 1 month #90 caps 07/02/23 06/02/24 Rx release amlodipine 10 mg-atorvastatin 40 1 tablet PO DAILY #90 tabs 10/28/23 06/02/24 Rx mg tablet dulaglutide 1.5 mg/0.5 mL 1.5 mg (0.5 mL) subcut WEEKLY #6 mL 02/14/24 06/02/24 Rx subcutaneous pen injector glipizide 5 mg tablet 5 mg PO DAILY #90 tabs 05/28/24 06/02/24 Rx empagliflozin 25 mg tablet 25 mg PO DAILY 06/02/24 06/02/24 History (Jardiance) escitalopram oxalate 20 mg tablet 20 mg PO DAILY 06/02/24 06/02/24 History metformin 500 mg tablet,extended 1,000 mg PO DAILY 06/02/24 06/02/24 History release 24 hr Allergies Allergy/AdvReac Type Severity Reaction Status Date / Time dimenhydrinate Allergy Severe THROAT Verified 06/02/24 12:03 SWELLING iodine Allergy Intermediate Rash Verified 06/02/24 12:03 Contrast Media Allergy Intermediate RASH Uncoded 06/02/24 12:03 Vital Signs Vital Signs - 24 hr 06/02/24 11:55 06/02/24 13:26 06/02/24 14:51 Temperature 98.1 F Pulse Rate 71 87 83 Respiratory Rate 12 19 15 Blood Pressure 162/79 H 171/83 H 150/78 H Pulse Oximetry 98 100 99 Oxygen Delivery Room Air Exam Narrative: General: Well-developed elderly female supine in bed in no acute distress. Weight: 69.1 kg. BMI: 25.4. HEENT: PERRL, EOMI. Sclera anicteric. Oral mucosa moist. Neck: Supple. Respiratory: Lungs are clear to auscultation bilaterally. Cardiovascular: Regular rate and rhythm with S1-S2. Gastrointestinal: Abdomen is soft, nontender, and nondistended with positive bowel sounds. Skin: Warm and dry. No rash or lesions on limited exam. Extremities: No cyanosis, clubbing, or edema. Radial and pedal pulses intact. Musculoskeletal: Right leg is shortened and externally rotated. Mild swelling over the hip. She is neurovascularly intact distal to the fracture site. Neurological: Alert. Cranial nerves 2-12 are grossly intact. No gross focal deficits to casual conversation. Psychiatric: Pleasant and cooperative with normal mood and affect. Judgment and insight intact. H&P: Results Labs Labs: Short CBC 06/02/24 Range/Units 12:26 WBC 9.4 (4.5-10.0) K/mm3 Hgb 12.6 (12.0-15.0) g/dL Hct 37.7 (37.0-47.0) % Plt Count 273 (150-375) k/mm3 [facility] 06/02/24 12:26 Sodium 138 Potassium 3.7 Chloride 107 Carbon Dioxide 20 L BUN 30 H Creatinine 1.20 H Glucose 178 H Calcium 9.[address] 06/02/24 12:41 IMPRESSION: 1. Old lacunar infarct in the right basal ganglia. Cervical Spine CT 06/02/24 12:43 IMPRESSION: 1. No fracture. 2. Mild cervical spondylosis. Knee X-Ray 06/02/24 13:01 IMPRESSION: 1. Moderate right knee osteoarthritis. Chest X-Ray 06/02/24 13:02 IMPRESSION: 1. No focal infiltrate or effusion. Hip/Pelvis X-Ray 06/02/24 13:07 IMPRESSION: 1. Comminuted intertrochanteric fracture of proximal right femur. 2. Mild osteoarthritis of the hips. Assessment and Plan Assessment and plan (1) Intertrochanteric fracture of right hip: Code(s): S72.141A - Displaced intertrochanteric fracture of right femur, initial encounter for closed fracture Status: Acute (2) Ground-level fall: Code(s): W18.30XA - Fall on same level, unspecified, initial encounter Status: Acute (3) Hypertension: Code(s): I10 - Essential (primary) hypertension Status: Acute (4) Type 2 diabetes mellitus: Code(s): E11.9 - Type 2 diabetes mellitus without complications Status: Acute (5) Paroxysmal atrial fibrillation: Code(s): I48.0 - Paroxysmal atrial fibrillation Status: Acute (6) Chronic anticoagulation: Code(s): Z79.01 - electronic lab technician (current) use of anticoagulants Status: Acute (7) Hypothyroidism: Code(s): E03.9 - Hypothyroidism, unspecified Status: Acute (8) Chronic kidney disease, stage 3: Code(s): N18.30 - Chronic kidney disease, stage 3 unspecified Status: Acute (9) Coronary artery disease: Code(s): I25.10 - Atherosclerotic heart disease of [place] coronary artery without angina pectoris Status: Acute Plan The patient presented to the emergency department for evaluation right hip pain after ground level fall as detailed in HPI. Labs, imaging, EKG, and all reports were personally reviewed. She has an intertrochanteric fracture of the right hip and Dr. Davila has been consulted. She is on apixaban which has been placed on hold. Analgesics are available as needed being mindful that she does have a morphine pain pump in place. Check preoperative EKG. She has not been having any troubles with chest pain. Blood pressures have been running a bit high, likely due to pain. Initiate sliding scale insulin, Accu-Cheks, and hypoglycemic protocol. Kidney function appears stable plan compared to previous labs. Continue levothyroxine and check TSH. Her home medications will be reviewed and resumed as appropriate. Findings and treatment plan were discussed with the patient. Questions were solicited and answered to satisfaction. The patient's medical management will be taken over by the hospitalist team in a.m. Quality VTE Prophylaxis VTE prophylaxis: mechanical ordered If No VTE Prophylaxis Answer both mechanical and pharmacologic: Reason no pharmacologic proph: medical contraindication (anticipate upcoming surgery) Hospitalist [facility] Advance Care Plan I have confirmed that the patient's Advanced Care Plan is present, code status is documented, or surrogate decision maker is listed in patient medical record.: Yes Medication Reconciliation I have utilized all available resources to obtain, update and review the patients current medications (includes all prescriptions, OTC, herbals, cannabis, and nutritional supplements).: Yes
--- NOTE | 2024-06-02 15:51 | ECG_ITS ---
Test Date: 2024-06-02 16:20:47 Measurements Intervals [place] Rate: 80 P: 64 GA: 167 QRS: 3 QRSD: 105 T: 64 QT: 401 QTc: 463 Interpretive Statements SINUS RHYTHM INTRAVENTRICULAR CONDUCTION DELAY ABNORMAL ECG Compared to ECG 03/03/2024 11:26:33 Myocardial infarct finding no longer present Electronically Signed On 06-03-2024 10:15:15 CDT by Jarod Engle M.D.
[2024-06-02 16:00] VITALS: BP 130/74; PULSE 88; RESP 22; TEMP 36.6; O2SAT 99
[2024-06-02 16:05] VITALS: BMI 25.3
--- NOTE | 2024-06-02 16:31 | ADMGEN ---
This patient, Britney Escobar, was admitted to 3 [facility] Surg Room 307-01. Patient/family oriented to hospital policies and general routines including ID bracelet, bed and alarms, visiting hours, pain management, procedures, bathroom and other care routines, personal items, smoking policy, room service/diet, and visiting hours. Information on how to activate the Rapid Response Team has been discussed. Patient/Family are encouraged to report perceived risks to care and to ask questions if they do not understand what they are told or what they should do.
--- NOTE | 2024-06-02 17:08 | PC.NURSE ---
Patient noted to have an active pain pump. Information regarding the pain pump obtained from family per paper documentation. Pain pump is a Anyone [employer] SynchroMed 3, 8667-20 with serial number [id number]. This RN contacted [employer] to verify dosage of pump. Per patient, pump was last filled on 05/21/2024 and dose was recently increased. Session long report provided from family is dated for 05/18/2024 with a reservoir volume of 15.2 mL. Morphine (1,500.0 mcg/mL) current settings that is set to infuse 139.9 mcg/day. Pending reply from [employer] energy conservation representative to verify if this is the correct dose or if this was increased on 05/21/2024.
[2024-06-02 17:21] LABS: Hemoglobin A1C 6.3 % (<5.7)
[2024-06-02 17:36] LABS: Glucose Point of Care 142 mg/dl (65-105)
--- NOTE | 2024-06-02 18:37 | PC.NURSE ---
Reid with [employer] called and verified that the company is unable to verify the dosage for the pain pump and these details would have to come from the prescribing provider. Charge, patient, and hospitalist made aware that prescribing office is closed and information would have to be obtained during the following business day.
[2024-06-02] MEDS: GABAPENTIN 300 MG CAPSULE PO (20:37)
[2024-06-02] MEDS: HYDROcodone/acetaminophen (*CRX) 5-325 MG TABLET 1 TAB PO (20:37)
[2024-06-02 20:45] LABS: Glucose Point of Care 159 mg/dl (65-105)
[2024-06-02 22:00] VITALS: BP 122/57; PULSE 85; RESP 18; TEMP 36.2; O2SAT 97
[2024-06-03] VITALS (17 sets, daily range): BP systolic 80–135; BP diastolic 48–63; PULSE 79–92; RESP 14–22; TEMP 36.1–36.9; O2SAT 95–100
[2024-06-03] MEDS: LEVOTHYROXINE SODIUM 50 MCG TABLET PO (05:11)
[2024-06-03 07:08] LABS: Hematocrit 34.5 % (37.0-47.0); Hemoglobin 10.8 g/dL (12.0-15.0); Mean Corpuscular HGB Conc 31.3 g/dl (32-36); Mean Corpuscular Hemoglobin 28.9 pg (26-34); Mean Corpuscular Volume 92.2 fl (80-100); Mean Platelet Volume 8.6 fl (7.4-10.4); Platelet Count Result 214 k/mm3 (150-375); Red Blood Count 3.74 M/mm3 (4.2-5.4); Red Cell Distribution Width 14.6 % (11.5-14.5)
--- NOTE | 2024-06-03 07:17 | P.CONOP_ITS ---
Assessment and Plan Assessment and plan (1) Intertrochanteric fracture of right hip: Code(s): S72.141A - Displaced intertrochanteric fracture of right femur, initial encounter for closed fracture Status: Acute Assessment and Plan: Intertrochanteric Fracture RIGHT hip. Recommend ORIF. With advance age, obvio usly moderate risk for surgery. History of Present Illness HPI Consult date: 06/03/24 Chief complaint: Hip Fx Review of Systems Review of Systems: 12 systems were reviewed and are negativ e except for as per HPI. [facility] Past Medical History Medical History Anemia Anxiety Arthritis Bladder cancer Blind Bowel obstruction Chronic anticoagulation Chronic kidney disease, stage 3 Chronic pain Chronic right hip pain Coronary artery disease Deep venous thrombosis Depression Diverticulitis Gastroesophageal reflux disease Hepatitis A History of blood transfusion History of rectal polyps Hyperlipidemia Hypertension Hypothyroidism Irritable bowel syndrome Macular degeneration Menieres disease Paroxysmal atrial fibrillation Seasonal allergies Skin cancer Transient ischemic attack Type 2 diabetes mellitus Surgical History Surgical History Greater trochanteric bursitis of right hip surgical re-debridement January 2020 H/O local excision of skin lesion History of angioplasty History of appendectomy History of back surgery History of bladder surgery History of brain surgery History of cardiac catheterization History of cataract surgery History of coronary artery stent placement History of coronary artery stent placement History of foot surgery Left History of hernia repair History of hip surgery Right hip abductor repair History of hysterectomy History of ileal conduit History of tonsillectomy Family History Family History Mother Diabetes mellitus Hypertension Family history of coronary artery disease Sibling Diabetes mellitus Hypertension Family history of malignant neoplasm Carcinoma of colon Family history of Alzheimer's disease Family history of malignant neoplasm of bone Family history of coronary artery disease Social History Social History (Updated 06/02/24 @ 21:40 by Lorie Mustafa PA-C) Social History: Surrogate medical decision maker: Samir Escobar, spouse. Code status: Smoking packs per day: 1 Smoking cigarettes per day: 20.0 Years smoked: 15 Smoking pack-years: 15.00 Smoking status: Former smoker Tobacco type: cigarettes Second hand tobacco smoke exposure: No Smoking end date: 08/12/99 Alcohol intake: never Alcohol use details: rarely Substance use: never Substance use type: opiates Other substance usage details: morphine pain pump placed about 2 months ago Do You Feel Safe in your Home?: Yes Lack of Transportation: No Lack of Food: Never True Current Housing: I Have Housing Concerned About Future Housing: No Difficulty Paying Gas/Electric Bills: No Difficulty Paying for Meds: No Currently Unemployed: No Education: High School Diploma/GED Difficulty w/ Childcare or Family Care: No Living arrangements: with family Additional living arrangements comments: Occupation/Education: retired Spiritual care concerns: No Meds Home Medications and Allergies Home Medications Medication Instructions Recorded Confirmed Type PreserVision AREDS-2 1 tab-cap PO DAILY 08/16/19 06/02/24 History apixaban 5 mg tablet (Eliquis) 5 mg PO BID 08/16/19 06/02/24 History metoprolol succinate 25 mg 25 mg PO DAILY 08/16/19 06/02/24 History tablet,extended release 24 hr nitroglycerin 0.4 mg sublingual 0.4 mg sublingual PRN PRN Chest 08/16/19 06/02/24 History tablet Pain pen needle, diabetic 32 gauge x #200 ea 07/04/20 06/02/24 Rx 1/4 (Novofine 32) gabapentin 300 mg capsule 300 mg PO QHS #30 caps 10/07/20 06/02/24 Rx levothyroxine 50 mcg capsule 50 mcg PO DAILY #1 cap 10/10/20 06/02/24 Rx triamcinolone acetonide 0.1 % 1 applic topical DAILY PRN Pain 08/31/21 06/02/24 History topical cream isosorbide mononitrate 60 mg 60 mg PO DAILY #7 tabs 12/19/21 06/02/24 Rx tablet,extended release 24 hr irbesartan 75 mg tablet 1 tablet DAILY 02/16/22 06/02/24 History ondansetron 4 mg disintegrating 4 mg PO Q8H PRN nausea and 07/02/22 06/02/24 Rx tablet vomiting #14 tabs linaclotide 72 mcg capsule 72 mcg PO DAILY 08/15/22 06/02/24 History (Linzess) trolamine salicylate 10 % topical 1 applic topical TID PRN muscle 08/23/22 06/02/24 Rx cream (Analgesic Creme) pain #85 grams hydrochlorothiazide 25 mg tablet 25 mg PO DAILY #90 tabs 10/23/22 06/02/24 Rx potassium chloride 8 mEq See Rx Instructions .Route 05/28/23 06/02/24 Rx capsule,extended release .COMPLEX #90 caps omeprazole 40 mg capsule,delayed 40 mg PO DAILY 1 month #90 caps 07/02/23 06/02/24 Rx release amlodipine 10 mg-atorvastatin 40 1 tablet PO DAILY #90 tabs 10/28/23 06/02/24 Rx mg tablet dulaglutide 1.5 mg/0.5 mL 1.5 mg (0.5 mL) subcut WEEKLY #6 mL 02/14/24 06/02/24 Rx subcutaneous pen injector glipizide 5 mg tablet 5 mg PO DAILY #90 tabs 05/28/24 06/02/24 Rx empagliflozin 25 mg tablet 25 mg PO DAILY 06/02/24 06/02/24 History (Jardiance) escitalopram oxalate 20 mg tablet 20 mg PO DAILY 06/02/24 06/02/24 History metformin 500 mg tablet,extended 1,000 mg PO DAILY 06/02/24 06/02/24 History release 24 hr Allergies Allergy/AdvReac Type Severity Reaction Status Date / Time dimenhydrinate Allergy Severe THROAT Verified 06/02/24 12:03 SWELLING iodine Allergy Intermediate Rash Verified 06/02/24 12:03 Contrast Media Allergy Intermediate RASH Uncoded 06/02/24 12:03 Vital Signs Vital Signs - 24 hr 06/02/24 11:55 06/02/24 13:26 06/02/24 14:51 Temperature 98.1 F Pulse Rate 71 87 83 Respiratory Rate 12 19 15 Blood Pressure 162/79 H 171/83 H 150/78 H Pulse Oximetry 98 100 99 Oxygen Delivery Room Air 06/02/24 16:00 06/02/24 20:00 06/02/24 22:00 Temperature 97.8 F 97.1 F L Pulse Rate 88 85 Respiratory Rate 22 H 18 Blood Pressure 130/74 122/57 L Pulse Oximetry 99 97 Oxygen Delivery Room Air 06/03/24 05:56 Temperature 97.0 F L Pulse Rate 82 Respiratory Rate 18 Blood Pressure 135/58 L Pulse Oximetry 96 Oxygen Delivery Exam Narrative: Pain with motion of her Right Hip. Wiggles toes. Results Labs 06/03/24 07:00 06/02/24 12:26 Labs: Abnormal lab results 06/02/24 06/02/24 06/02/24 Range/Units 12:26 17:04 20:00 RBC (4.2-5.4) M/mm3 Hgb (12.0-15.0) g/dL Hct (37.0-47.0) % MCHC (32-36) g/dl RDW (11.5-14.5) % Neut % (Auto) 82.5 H (45.5-73.1) % Lymph % (Auto) 9.0 L (18.3-44.2) % Lymph # (Auto) 0.85 L (0.9-3.2) K/mm3 Abs Immat Gran (auto) 0.05 H (0.00-0.031) K/mm3 Absolute Neuts (auto) 7.8 H (1.3-6.7) K/mm3 Carbon Dioxide 20 L (22-30) mmol/L BUN 30 H (7-17) mg/dL Creatinine 1.20 H (0.7-1.0) mg/dL Estimated GFR 43 L (59 - ) Glucose 178 H (65-110) mg/dL POC Capillary Glucose 142 H 159 H (65-105) mg/dl Hemoglobin A1c 6.3 H (<5.7) % 06/03/24 Range/Units 07:00 RBC 3.74 L (4.2-5.4) M/mm3 Hgb 10.8 L (12.0-15.0) g/dL Hct 34.5 L (37.0-47.0) % MCHC 31.3 L (32-36) g/dl RDW 14.6 H (11.5-14.5) % Neut % (Auto) (45.5-73.1) % Lymph % (Auto) (18.3-44.2) % Lymph # (Auto) (0.9-3.2) K/mm3 Abs Immat Gran (auto) (0.00-0.031) K/mm3 Absolute Neuts (auto) (1.3-6.7) K/mm3 Carbon Dioxide (22-30) mmol/L BUN (7-17) mg/dL Creatinine (0.7-1.0) mg/dL Estimated GFR (59 - ) Glucose (65-110) mg/dL POC Capillary Glucose (65-105) mg/dl Hemoglobin A1c (<5.7) % H & H 06/02/24 06/03/24 Range/Units 12:26 07:00 Hgb 12.6 10.8 L (12.0-15.0) g/dL Hct 37.7 34.5 L (37.0-47.0) % All other labs normal.
[2024-06-03 07:20] LABS: Alanine Aminotransferase 11 U/L (6-35); Albumin Level 3.6 g/dL (3.5-5.1); Alkaline Phosphatase 61 U/L (38-126); Anion Gap 11 mmol/L (4-12); Aspartate Amino Transferase 20 U/L (14-36); Bilirubin,Total 0.7 mg/dL (0.2-1.3); Blood Urea Nitrogen 33 mg/dL (7-17); Calcium 9.2 mg/dL (8.4-10.2); Carbon Dioxide 17 mmol/L (22-30); Chloride 109 mmol/L (98-107); Estimated CRCL calculation 24 ml/min; Estimated Glomerular Filt Rate 36; Glucose 132 mg/dL (65-110); Magnesium 1.9 mg/dL (1.6-2.3); Potassium 3.9 mmol/L (3.4-5.0); Sodium 137 mmol/L (137-145)
[2024-06-03 08:09] LABS: Glucose Point of Care 135 mg/dl (65-105)
[2024-06-03] MEDS: METOPROLOL SUCCINATE EXT REL 25 MG TABCR PO (08:36)
[2024-06-03] MEDS: ISOSORBIDE MONONITRATE 60 MG TAB.ER.24H PO (08:36)
[2024-06-03] MEDS: IRBESARTAN 75 MG TABLET BY MOUTH (08:36)
[2024-06-03] MEDS: amLODIPine BESYLATE 10 MG TABLET PO (08:36)
[2024-06-03] MEDS: [UNRECOGNIZED DRUG - REMARK] 1 EACH IV CONT (09:00)
[2024-06-03] MEDS: MORPHINE SULFATE (*CRX) 2 MG/ML INJ IV PUSH (09:58)
--- NOTE | 2024-06-03 10:04 | PM.IMPN ---
Progress Note: A&P Assessment and Plan (1) Intertrochanteric fracture of right hip: Code(s): S72.141A - Displaced intertrochanteric fracture of right femur, initial encounter for closed fracture Status: Acute Assessment and Plan: Hip x-ray shown comminuted intertrochanteric fracture of proximal right femur, mild osteoarthritis of the hips Ortho consulted and took patient to the OR today for and IT nailing of the right hip Continue pain control Continue diabetic diet Case coordination consulted for rehab planning Eliquis restarted PT and OT ordered for after surgery Continue hip precautions Continue incentive spirometry 10 times per hour Toe-touch weight-bearing (2) Ground-level fall: Code(s): W18.30XA - Fall on same level, unspecified, initial encounter Status: Acute Assessment and Plan: s/p ground level fall PT and OT ordered post surgical intervention (3) Hypertension: Code(s): I10 - Essential (primary) hypertension Status: Chronic Assessment and Plan: Will hold blood amlodipine and hydrochlorothiazide for now due to hypotension after surgery Will reassess blood pressures in the morning (4) Type 2 diabetes mellitus: Code(s): E11.9 - Type 2 diabetes mellitus without complications Status: Chronic Assessment and Plan: Blood sugars ranging 132-178 Hgb A1C 6.3 Accu checks AC/HS low dose SSI ordered hypoglycemic protocol in place Diabetic diet ordered Hold glipizide Continue Jardiance (5) Paroxysmal atrial fibrillation: Code(s): I48.0 - Paroxysmal atrial fibrillation Status: Chronic Assessment and Plan: Continue metoprolol Continue Eliquis postoperatively (6) Hypothyroidism: Code(s): E03.9 - Hypothyroidism, unspecified Status: Chronic Assessment and Plan: Continue Synthroid TSH 4.570, free T4 pending Time Spent With Patient Time with patient: 25 - 35 minutes Subjective Date/time seen: 06/03/24 10:04 Interval history: Interval history: This is an 83-year-old female who presented to the hospital on 06/02/2024 after sustaining a ground level fall and came in for evaluation of right hip pain. Workup in the hospital included hip and pelvis x-ray which showed a comminuted intratrochanteric fracture of proximal right femur, mild osteoarthritis of the hips. Chest x-ray was negative. Initial labs revealed a hemoglobin of 10.8, bicarb 17, creatinine 1.40, EGFR 36, blood sugars 132-135, TSH 4.570. EKG showed sinus rhythm with a rate of 80, QTC 463. Ortho surgery consulted and took patient to the OR for an IM nailing of her right hip fracture. Subjective: Patient denies any fever, chills, nausea, vomiting, diarrhea, abdominal pain, chest pain, shortness a breath. She rates her pain about a 2/10 when at rest. She did get up 1 time and her pain shot up to 10/10. She has an OR dressing to the right hip which is clean dry and intact. Labs and imaging reviewed. Review of Systems Review of Systems: All systems reviewed & are unremarkable except as noted in HPI and below Constitutional: Constitutional: Reports as per HPI and Reports no additional constitutional complaints Eyes: Eyes: Reports as per HPI and Reports no additional eye complaints ENT: Reports system reviewed and no additional complaints, except as documented and Reports as per HPI Cardiovascular: Cardiovascular: Reports as per HPI and Reports no additional cardiovascular complaints Respiratory: Respiratory: Reports as per HPI and Reports no additional respiratory complaints Gastrointestinal: Gastrointestinal: Reports as per HPI and Reports no additional gastrointestinal complaints Genitourinary: Genitourinary: Reports no additional female genitourinary complaints and Reports as per HPI Musculoskeletal: Musculoskeletal: Reports no additional musculoskeletal complaints and Reports as per HPI Integumentary/Breasts: Skin/Breast: Reports system reviewed and no additional complaints, except as docu and Reports as per HPI Neurologic: Reports system reviewed and no additional complaints, except as documented and Reports as per HPI Psychiatric: Psychiatric: Reports no additional psychiatric complaints and Reports as per HPI Exam Narrative: General: In no acute distress, well nourished Head: atraumatic, no encephalopathy Eyes: EOMI, PERRLA, sclera clear ENT: moist mucous membranes, nasal passages clear Neck: supple, no JVD, no adenopathy, trachea midline Cardiac: Normal S1 and S2. No murmur, gallops or friction rubs, peripheral pulses intact. Respiratory: Lungs clear to auscultation, no adventitious lung sounds, currently on room air Gastrointestinal: soft, non-distended, non-tender, hypo active bowel sounds. : Shields catheter in place Extremities: Limited movement of right lower extremity, no edema Skin: OR dressing to right hip clean dry and intact, pain pump to mid lower back which is chronic Neuro: Alert and oriented x4, cranial nerves intact, no neuro deficits. Psych: normal mood, normal affect, interactive Objective Data Vital Signs Vital Signs: Vital Signs - 24 hr 06/02/24 11:55 06/02/24 13:26 06/02/24 14:51 Temperature 98.1 F Pulse Rate 71 87 83 Respiratory Rate 12 19 15 Blood Pressure 162/79 H 171/83 H 150/78 H Pulse Oximetry 98 100 99 Oxygen Delivery Room Air 06/02/24 16:00 06/02/24 20:00 06/02/24 22:00 Temperature 97.8 F 97.1 F L Pulse Rate 88 85 Respiratory Rate 22 H 18 Blood Pressure 130/74 122/57 L Pulse Oximetry 99 97 Oxygen Delivery Room Air 06/03/24 05:56 06/03/24 07:58 06/03/24 08:36 Temperature 97.0 F L Pulse Rate 82 89 Respiratory Rate 18 Blood Pressure 135/58 L Pulse Oximetry 96 95 Oxygen Delivery Room Air 06/03/24 08:30 06/03/24 08:30 Temperature Pulse Rate 89 Respiratory Rate Blood Pressure 123/63 Pulse Oximetry 97 Oxygen Delivery Room Air Intake/Output Intake/Output: Intake & Output 05/31/24 06/01/24 06/02/24 06/03/24 23:59 23:59 23:59 23:59 Intake Total 240 Output Total 600 800 Balance -360 -800 Meds/Results Medications: Active Medications Generic Name Dose Route Start Last Admin Trade Name Freq PRN Reason Stop Dose Admin Acetaminophen 650 mg 06/02/24 15:47 Acetaminophen 325 Mg Tablet PO Q6H PRN Mild Pain (1-3) or Fever Hydrocodone Bitart/Acetaminophen 1 tab 06/02/24 15:47 06/02/24 20:37 Hydrocodone/Acetaminophen (*Crx) 5-325 Mg Tablet PO 1 tab Q6H PRN Administration Pain Rated 4-6 Amlodipine Besylate 10 mg 06/03/24 09:00 06/03/24 08:36 Amlodipine Besylate 10 Mg Tablet PO 10 mg DAILY [facility] Administration Atorvastatin Calcium 40 mg 06/03/24 09:00 Atorvastatin 40 Mg Tablet PO DAILY [facility] Dextrose 12.5 gm 06/02/24 15:49 Dextrose 50% 25 Gm/50 Ml Syringe IV PUSH PRN PRN Hypoglycemia Protocol Empagliflozin 25 mg 06/03/24 09:00 Empagliflozin 25 Mg Tablet PO DAILY [facility] Escitalopram Oxalate 20 mg 06/03/24 09:00 Escitalopram Oxalate 10 Mg Tablet PO DAILY [facility] Gabapentin 300 mg 06/02/24 21:00 06/02/24 20:37 Gabapentin 300 Mg Capsule PO 300 mg QHS [facility] Administration Glipizide 5 mg 06/03/24 09:00 Glipizide 5 Mg Tablet PO DAILY [facility] Glucagon 1 mg 06/02/24 15:49 Glucagon For Inj 1 Mg Vial IM PRN PRN Hypoglycemia Protocol Glucose 15 gm 06/02/24 15:49 Glucose Oral Gel 15 Gm Of Glucse In 37.5 Gm Tube PO PRN PRN Hypoglycemia Protocol Hydrochlorothiazide 25 mg 06/03/24 09:00 Hydrochlorothiazide 25 Mg Tablet PO DAILY [facility] Dextrose 1,000 mls @ 100 mls/hr 06/02/24 15:49 Dextrose 5% 1,000 Ml IVPB PRN PRN Hypoglycemia Protocol Insulin Aspart 2 - 5 units 06/02/24 17:00 06/03/24 08:16 Insulin Aspart (*Bkc) 100 Units/Ml SUB-Q Not Given TIDWM [facility] Protocol Insulin Aspart 1 - 2 units 06/02/24 21:00 06/02/24 20:39 Insulin Aspart (*Bkc) 100 Units/Ml SUB-Q Not Given HS [facility] Protocol Irbesartan 75 mg 06/03/24 09:00 06/03/24 08:36 Irbesartan 75 Mg Tablet BY MOUTH 75 mg DAILY [facility] Administration Isosorbide Mononitrate 60 mg 06/03/24 09:00 06/03/24 08:36 Isosorbide Mononitrate 60 Mg Tab.Er.24h PO 60 mg DAILY [facility] Administration Levothyroxine Sodium 50 mcg 06/03/24 06:30 06/03/24 05:11 Levothyroxine Sodium 50 Mcg Tablet PO 50 mcg DAILY@0630 [facility] Administration Linaclotide 72 mcg 06/03/24 09:00 Linaclotide 72 Mcg Capsule PO DAILY [facility] Metoprolol Succinate 25 mg 06/03/24 09:00 06/03/24 08:36 Metoprolol Succinate Ext Rel 25 Mg Tabcr PO 25 mg DAILY [facility] Administration Morphine Sulfate 2 mg 06/02/24 15:49 06/03/24 09:58 Morphine Sulfate (*Crx) 2 Mg/Ml Inj IV PUSH 2 mg Q4H PRN Administration Pain Rated 7-10 Multivitamins/Minerals 1 tablet 06/03/24 09:00 Opti-Gen Tab PO DAILY [facility] Naloxone HCl 0.1 mg 06/02/24 15:47 Naloxone Hcl 0.4 Mg/Ml Vial IV PUSH Q5MIN PRN Opioid Reversal Pantoprazole Sodium 40 mg 06/03/24 09:00 Pantoprazole 40 Mg Tablet PO BID [facility] Triamcinolone Acetonide 1 applic 06/02/24 18:57 Triamcinolone Acet 0.1% Cream 15 Gm Tube TOPICAL DAILY PRN Pain Trolamine Salicylate 1 applic 06/02/24 18:57 Trolamine Salicylate 10% (*Bkc) 113 Gm Cream TOPICAL TID PRN muscle pain Radiology Results: ITS Impressions Head CT 06/02/24 12:41 IMPRESSION: 1. Old lacunar infarct in the right basal ganglia. Cervical Spine CT 06/02/24 12:43 IMPRESSION: 1. No fracture. 2. Mild cervical spondylosis. Knee X-Ray 06/02/24 13:01 IMPRESSION: 1. Moderate right knee osteoarthritis. Chest X-Ray 06/02/24 13:02 IMPRESSION: No focal infiltrate or effusion. Hip/Pelvis X-Ray 06/02/24 13:07 IMPRESSION: 1. Comminuted intertrochanteric fracture of proximal right femur. 2. Mild osteoarthritis of the hips. Labs Labs: Laboratory Results - last 24 hr 06/02/24 06/02/24 06/02/24 12:26 17:04 20:00 WBC 9.4 RBC 4.23 Hgb 12.6 Hct 37.7 MCV 89.1 MCH 29.8 MCHC 33.4 RDW 14.4 Plt Count 273 MPV 8.6 Immature Gran % (Auto) 0.5 Neut % (Auto) 82.5 H Lymph % (Auto) 9.0 L Forest % (Auto) 5.6 Eos % (Auto) 1.8 Baso % (Auto) 0.6 Lymph # (Auto) 0.85 L [place] # (Auto) 0.5 Eos # (Auto) 0.2 Baso # (Auto) 0.1 Abs Immat Gran (auto) 0.05 H Absolute Neuts (auto) 7.8 H Absolute Nucleated RBC 0.000 Nucleated RBC % 0.0 Sodium 138 Potassium 3.7 Chloride 107 Carbon Dioxide 20 L Anion Gap 11 BUN 30 H Creatinine 1.20 H Estim Creat Clear Calc 28 Estimated GFR 43 L Glucose 178 H POC Capillary Glucose 142 H 159 H Hemoglobin A1c 6.3 H Calcium 9.4 Magnesium Total Bilirubin AST ALT Alkaline Phosphatase Total Protein Albumin TSH (Reflex) 06/03/24 06/03/24 07:00 08:05 WBC 8.0 RBC 3.74 L Hgb 10.8 L Hct 34.5 L MCV 92.2 MCH 28.9 MCHC 31.3 L RDW 14.6 H Plt Count 214 MPV 8.6 Immature Gran % (Auto) Neut % (Auto) Lymph % (Auto) Forest % (Auto) Eos % (Auto) Baso % (Auto) Lymph # (Auto) Forest # (Auto) Eos # (Auto) Baso # (Auto) Abs Immat Gran (auto) Absolute Neuts (auto) Absolute Nucleated RBC Nucleated RBC % Sodium 137 Potassium 3.9 Chloride 109 H Carbon Dioxide 17 L Anion Gap 11 BUN 33 H Creatinine 1.40 H Estim Creat Clear Calc 24 Estimated GFR 36 L Glucose 132 H POC Capillary Glucose 135 H Hemoglobin A1c Calcium 9.2 Magnesium 1.9 Total Bilirubin 0.7 AST 20 ALT 11 Alkaline Phosphatase 61 Total Protein 7.0 Albumin 3.6 TSH (Reflex) 4.570 Quality VTE Prophylaxis VTE prophylaxis: mechanical ordered
[2024-06-03 10:29] LABS: Free T4 Free Thyroxine Reflex 0.87 ng/dL (0.78-2.19)
[2024-06-03 11:19] LABS: Total Triiodothyronine (T3) 0.85 NG/ML (0.97-1.69)
[2024-06-03 12:02] LABS: Glucose Point of Care 154 mg/dl (65-105)
--- NOTE | 2024-06-03 12:10 | PC.NURSE ---
To OR via bed.
[2024-06-03] MEDS: LACTATED RINGERS 1,000 ML 30 ML IV CONT ×2 (12:15→14:53)
--- NOTE | 2024-06-03 12:30 | WPDHPUPDATE1 ---
History and Physical Update Update Date/Time: 06/03/24 12:30 History and Physical has been reviewed, including an updated exam of the patient. There are NO changes in the patient's condition. Risks, benefits, and alternatives have been discussed and questions answered. Patient agrees to proceed with procedure.
[2024-06-03] MEDS: TRANEXAMIC ACID 1,000MG/ISO100 1,000 MG/100 ML BAG 200 MG IVPB (12:50)
--- NOTE | 2024-06-03 12:55 | SUR.PREOP ---
1240- Call to Dr. Bell patient's BP 90's over 40's in pre op with HR in the 80's. Patient was given AM BP meds and morphine 2MG at 0958, see OCT. IV fluids LR running and will recheck BP. Per Dr. Bell OK to proceed with surgery. 1255-Dr. Bell in to see patient at bedside. Informed MD this RN took manual BP on each arm and BP showing improvement running 100's over 50's.
--- NOTE | 2024-06-03 12:56 | P.PNAN_ITS ---
Anes - Initial Pre Proc Eval Procedure: Operation Date: 06/03/24 13:00 Proposed Procedures p Right Intertrochanteric Nail - Marcel Davila MD Date/Time: 06/03/24 12:56 Surgeon: Ursula Ybarra APRN Pre Op Diagnosis: Hip Fx Patient Data Age: 83 Gender: F Height: 1.65 m Weight: 71.6 kg Last Vital Signs Temp 97.0 F L 06/03/24 05:56 Pulse 89 06/03/24 11:45 Resp 18 06/03/24 05:56 BP 97/48 L 06/03/24 11:45 Pulse Ox 97 06/03/24 11:45 O2 Del Method Room Air 06/03/24 08:30 Allergies Allergy/AdvReac Type Severity Reaction Status Date / Time dimenhydrinate Allergy Severe THROAT Verified 06/02/24 12:03 SWELLING iodine Allergy Intermediate Rash Verified 06/02/24 12:03 Contrast Media Allergy Intermediate RASH Uncoded 06/02/24 12:03 Home Medications Medication Instructions Recorded Confirmed Type PreserVision AREDS-2 1 tab-cap PO DAILY 08/16/19 06/02/24 History apixaban 5 mg tablet (Eliquis) 5 mg PO BID 08/16/19 06/02/24 History metoprolol succinate 25 mg 25 mg PO DAILY 08/16/19 06/02/24 History tablet,extended release 24 hr nitroglycerin 0.4 mg sublingual 0.4 mg sublingual PRN PRN Chest 08/16/19 06/02/24 History tablet Pain pen needle, diabetic 32 gauge x #200 ea 07/04/20 06/02/24 Rx 1/4 (Novofine 32) gabapentin 300 mg capsule 300 mg PO QHS #30 caps 10/07/20 06/02/24 Rx levothyroxine 50 mcg capsule 50 mcg PO DAILY #1 cap 10/10/20 06/02/24 Rx triamcinolone acetonide 0.1 % 1 applic topical DAILY PRN Pain 08/31/21 06/02/24 History topical cream isosorbide mononitrate 60 mg 60 mg PO DAILY #7 tabs 12/19/21 06/02/24 Rx tablet,extended release 24 hr irbesartan 75 mg tablet 1 tablet DAILY 02/16/22 06/02/24 History ondansetron 4 mg disintegrating 4 mg PO Q8H PRN nausea and 07/02/22 06/02/24 Rx tablet vomiting #14 tabs linaclotide 72 mcg capsule 72 mcg PO DAILY 08/15/22 06/02/24 History (Linzess) trolamine salicylate 10 % topical 1 applic topical TID PRN muscle 08/23/22 06/02/24 Rx cream (Analgesic Creme) pain #85 grams hydrochlorothiazide 25 mg tablet 25 mg PO DAILY #90 tabs 10/23/22 06/02/24 Rx potassium chloride 8 mEq See Rx Instructions .Route 05/28/23 06/02/24 Rx capsule,extended release .COMPLEX #90 caps omeprazole 40 mg capsule,delayed 40 mg PO DAILY 1 month #90 caps 07/02/23 06/02/24 Rx release amlodipine 10 mg-atorvastatin 40 1 tablet PO DAILY #90 tabs 10/28/23 06/02/24 Rx mg tablet dulaglutide 1.5 mg/0.5 mL 1.5 mg (0.5 mL) subcut WEEKLY #6 mL 02/14/24 06/02/24 Rx subcutaneous pen injector glipizide 5 mg tablet 5 mg PO DAILY #90 tabs 05/28/24 06/02/24 Rx empagliflozin 25 mg tablet 25 mg PO DAILY 06/02/24 06/02/24 History (Jardiance) escitalopram oxalate 20 mg tablet 20 mg PO DAILY 06/02/24 06/02/24 History metformin 500 mg tablet,extended 1,000 mg PO DAILY 06/02/24 06/02/24 History release 24 hr Laboratory Tests 06/02/24 06/02/24 06/02/24 12:26 17:04 20:00 WBC RBC Hgb Hct MCV MCH MCHC RDW Plt Count MPV Sodium Potassium Chloride Carbon Dioxide Anion Gap BUN Creatinine Estim Creat Clear Calc Estimated GFR Glucose POC Capillary Glucose 142 H mg/dl 159 H mg/dl (65-105) (65-105) Hemoglobin A1c 6.3 H % (<5.7) Calcium Magnesium Total Bilirubin AST ALT Alkaline Phosphatase Total Protein Albumin TSH (Reflex) Free T4 Total T3 06/03/24 06/03/24 06/03/24 07:00 08:05 11:37 WBC 8.0 K/mm3 (4.5-10.0) RBC 3.74 L M/mm3 (4.2-5.4) Hgb 10.8 L g/dL (12.0-15.0) Hct 34.5 L % (37.0-47.0) MCV 92.2 fl (80-100) MCH 28.9 pg (26-34) MCHC 31.3 L g/dl (32-36) RDW 14.6 H % (11.5-14.5) Plt Count 214 k/mm3 (150-375) MPV 8.6 fl (7.4-10.4) Sodium 137 mmol/L (137-145) Potassium 3.9 mmol/L (3.4-5.0) Chloride 109 H mmol/L (98-107) Carbon Dioxide 17 L mmol/L (22-30) Anion Gap 11 mmol/L (4-12) BUN 33 H mg/dL (7-17) Creatinine 1.40 H mg/dL (0.7-1.0) Estim Creat Clear Calc 24 ml/min Estimated GFR 36 L (59 - ) Glucose 132 H mg/dL (65-110) POC Capillary Glucose 135 H mg/dl 154 H mg/dl (65-105) (65-105) Hemoglobin A1c Calcium 9.2 mg/dL (8.4-10.2) Magnesium 1.9 mg/dL (1.6-2.3) Total Bilirubin 0.7 mg/dL (0.2-1.3) AST 20 U/L (14-36) ALT 11 U/L (6-35) Alkaline Phosphatase 61 U/L (38-126) Total Protein 7.0 g/dL (6.3-8.2) Albumin 3.6 g/dL (3.5-5.1) TSH (Reflex) 4.570 uIU/mL (0.465-4.68) Free T4 0.87 ng/dL (0.78-2.19) Total T3 0.85 L NG/ML (0.97-1.69) Patient hx anesthesia problems: none Family hx anesthesia problems: none Results Review: All pre-operative results and documents have been reviewed as part of the pre- operative evaluation. [facility] Past Medical History Medical History Anemia Anxiety Arthritis Bladder cancer Blind Bowel obstruction Chronic anticoagulation Chronic kidney disease, stage 3 Chronic pain Chronic right hip pain Coronary artery disease Deep venous thrombosis Depression Diverticulitis Gastroesophageal reflux disease Hepatitis A History of blood transfusion History of rectal polyps Hyperlipidemia Hypertension Hypothyroidism Irritable bowel syndrome Macular degeneration Menieres disease Paroxysmal atrial fibrillation Seasonal allergies Skin cancer Transient ischemic attack Type 2 diabetes mellitus Surgical History Surgical History Greater trochanteric bursitis of right hip surgical re-debridement January 2020 H/O local excision of skin lesion History of angioplasty History of appendectomy History of back surgery History of bladder surgery History of brain surgery History of cardiac catheterization History of cataract surgery History of coronary artery stent placement History of coronary artery stent placement History of foot surgery Left History of hernia repair History of hip surgery Right hip abductor repair History of hysterectomy History of ileal conduit History of tonsillectomy Family History Family History Mother Diabetes mellitus Hypertension Family history of coronary artery disease Sibling Diabetes mellitus Hypertension Family history of malignant neoplasm Carcinoma of colon Family history of Alzheimer's disease Family history of malignant neoplasm of bone Family history of coronary artery disease Social History Social History (Updated 06/02/24 @ 21:40 by Lorie Mustafa PA-C) Social History: Surrogate medical decision maker: Samir Luz, spouse. Code status: Smoking packs per day: 1 Smoking cigarettes per day: 20.0 Years smoked: 15 Smoking pack-years: 15.00 Smoking status: Former smoker Tobacco type: cigarettes Second hand tobacco smoke exposure: No Smoking end date: 08/12/99 Alcohol intake: never Alcohol use details: rarely Substance use: never Substance use type: opiates Other substance usage details: morphine pain pump placed about 2 months ago Do You Feel Safe in your Home?: Yes Lack of Transportation: No Lack of Food: Never True Current Housing: I Have Housing Concerned About Future Housing: No Difficulty Paying Gas/Electric Bills: No Difficulty Paying for Meds: No Currently Unemployed: No Education: High School Diploma/GED Difficulty w/ Childcare or Family Care: No Living arrangements: with family Additional living arrangements comments: Occupation/Education: retired Spiritual care concerns: No Anes - Eval Final PreProcedure Day of Procedure 06/03/24 12:56 Patient weight: normal Heart: irregular rhythm Lungs: clear to auscultation Neurological: alert and oriented Last oral intake: >/= 8 hours Emergent: no Anesthetic plan: proceed Results Review: All pre-operative results and documents have been reviewed as part of the pre- operative evaluation. Informed Consent: The patient's anesthetic plan and its attendant risks and benefits were discussed with the patient/family/POA. Questions were solicited and answers provided to the satisfaction of the patient/family/POA.
[2024-06-03] MEDS: ceFAZolin 2 GM/D5W 50 ML 2 GM/50 ML BAG IVPB ×2 (13:07→22:26)
--- NOTE | 2024-06-03 14:05 | W.PM.PROC2 ---
Procedure Note - Detailed Date of Procedure 06/03/24 Pre-op Diagnosis Right intertrochanteric hip fracture Post-op Diagnosis Same Procedure Performed Open reduction internal fixation right hip with a trochanteric nail. Surgeon Marcel Davila MD [employer] [facility] Anesthesia General Indications Fracture Description of Procedure Patient brought to operating room 9. General anesthetic was administered. She was placed on the fracture table and the fracture realigned. She was sterilely prepped and draped in usual manner. Longitudinal incision made over the tip of the trochanter. The trochanter approach with an awl and a one-step Reamer used. An 11 x 125 nail placed. A 95 millimeter screws placed in the center of the head. This gave excellent alignment fixation. Wounds then thoroughly irrigated hemostasis obtained closed with a 2. Vicryl 2-0 Vicryl and osmar. Sterile dressing applied patient tolerated procedure well. No for the factor pressure was low before and during surgery. [employer] Trochanteric Nail Estimated Blood Loss 100 Urine Output 500 Complications No immediate complications Condition Stable Disposition PACU [facility] Billing Surgery - Charge Forward: Surgery Billing ([id number] Troch Nail)
[2024-06-03] MEDS: fentaNYL CITRATE INJ (*CRX) 100 MCG/2 ML VIAL 25 MCG IV PUSH ×3 (14:45→15:10)
[2024-06-03] MEDS: ONDANSETRON INJ 4 MG/2 ML VIAL IV PUSH (14:52)
[2024-06-03 14:58] LABS: Glucose Point of Care 124 mg/dl (65-105)
[2024-06-03 16:48] LABS: Glucose Point of Care 141 mg/dl (65-105)
[2024-06-03] MEDS: HYDROcodone/acetaminophen (*CRX) 7.5-325 MG TABLET 1 TAB PO (17:04)
[2024-06-03] MEDS: SENNA/DOCUSATE SODIUM TABLET 2 TAB PO (17:05)
[2024-06-03] MEDS: ACETAMINOPHEN 325 MG TABLET 650 MG PO ×2 (17:06→23:05)
[2024-06-03] MEDS: APIXABAN 2.5 MG TABLET PO (20:40)
[2024-06-03] MEDS: GABAPENTIN 300 MG CAPSULE PO (20:40)
[2024-06-03] MEDS: PANTOPRAZOLE 40 MG TABLET PO (20:40)
[2024-06-03 21:02] LABS: Glucose Point of Care 186 mg/dl (65-105)
[2024-06-04] VITALS (7 sets, daily range): BP systolic 95–122; BP diastolic 49–58; PULSE 74–80; RESP 16–20; TEMP 36–36.6; O2SAT 95–100
[2024-06-04] MEDS: ACETAMINOPHEN 325 MG TABLET 650 MG PO ×4 (06:00→23:30)
[2024-06-04] MEDS: LINACLOTIDE 72 MCG CAPSULE PO (06:00)
[2024-06-04] MEDS: LEVOTHYROXINE SODIUM 50 MCG TABLET PO (06:01)
[2024-06-04] MEDS: ceFAZolin 2 GM/D5W 50 ML 2 GM/50 ML BAG IVPB ×2 (06:01→13:40)
[2024-06-04] MEDS: HYDROcodone/acetaminophen (*CRX) 7.5-325 MG TABLET 1 TAB PO ×2 (06:02→13:40)
[2024-06-04 06:45] LABS: Basophils Absolute Auto 0.1 K/mm3 (0.0-0.1); Basophils Percent Auto 0.6 % (0.2-1.2); Eosinophils Absolute Auto 0.3 K/mm3 (0-0.3); Eosinophils Percent Auto 3.6 % (0-4.4); Hematocrit 29.5 % (37.0-47.0); Hemoglobin 9.2 g/dL (12.0-15.0); Immature Granulocyte Absolute 0.04 K/mm3 (0.00-0.031); Immature Granulocyte Percent A 0.5 % (0-0.5); Lymphocytes Absolute Auto 1.42 K/mm3 (0.9-3.2); Lymphocytes Percent Auto 16.8 % (18.3-44.2); Mean Corpuscular HGB Conc 31.2 g/dl (32-36); Mean Corpuscular Hemoglobin 29.5 pg (26-34); Mean Corpuscular Volume 94.6 fl (80-100); Mean Platelet Volume 9.2 fl (7.4-10.4); Monocytes Absolute Auto 1.1 K/mm3 (0.1-0.6); Monocytes Percent Auto 12.8 % (2.6-8.5); Neutrophils Absolute Auto 5.6 K/mm3 (1.3-6.7); Neutrophils Percent Auto 65.7 % (45.5-73.1); Platelet Count Result 201 k/mm3 (150-375); Red Blood Count 3.12 M/mm3 (4.2-5.4); Red Cell Distribution Width 14.8 % (11.5-14.5); White Blood Count 8.5 K/mm3 (4.5-10.0)
[2024-06-04 06:55] LABS: Anion Gap 8 mmol/L (4-12); Blood Urea Nitrogen 37 mg/dL (7-17); Calcium 8.5 mg/dL (8.4-10.2); Carbon Dioxide 17 mmol/L (22-30); Chloride 108 mmol/L (98-107); Estimated CRCL calculation 20 ml/min; Estimated Glomerular Filt Rate 29; Glucose 137 mg/dL (65-110); Potassium 3.7 mmol/L (3.4-5.0); Sodium 133 mmol/L (137-145)
--- NOTE | 2024-06-04 07:47 | PM.PNORT ---
Progress Note: A&P Assessment and Plan (1) Intertrochanteric fracture of right hip: Code(s): S72.141A - Displaced intertrochanteric fracture of right femur, initial encounter for closed fracture Status: Acute Assessment and Plan: Patient is status postop reduction turned fixation right intertrochanteric hip fracture. She is doing well. We will advance her slowly. She will need placement for help with therapy. I will see her back in the office in 2 weeks. If she has any changes or problems I have asked her to call. Subjective Subjective Date/Time Seen: 06/04/24 07:47 Post Op day: 1 Principal diagnosis: Right intertrochanteric fracture S/P open reduction internal fixation. Review of Systems Review of Systems: 12 systems were reviewed and are negative except for as per HPI. Exam Narrative: Patient's dressing is intact she is wiggling her toes. Neurologically she is doing fine. Pain is tolerable. Objective Data Vital Signs Vital Signs: Vital Signs - 24 hr 06/03/24 07:58 06/03/24 08:36 06/03/24 08:30 Temperature Pulse Rate 89 Respiratory Rate Blood Pressure Pulse Oximetry 95 Oxygen Delivery Room Air Room Air Oxygen Flow Rate 06/03/24 08:30 06/03/24 10:55 06/03/24 11:45 Temperature Pulse Rate 89 89 Respiratory Rate Blood Pressure 123/63 80/50 L 97/48 L Pulse Oximetry 97 97 Oxygen Delivery Oxygen Flow Rate 06/03/24 12:55 06/03/24 14:25 06/03/24 14:40 Temperature 97.9 F 97.8 F Pulse Rate 90 83 80 Respiratory Rate 16 22 H 18 Blood Pressure 110/54 L 124/59 L 126/61 Pulse Oximetry 97 98 100 Oxygen Delivery Room Air Simple Face Mask Simple Face Mask Oxygen Flow Rate 8 8 06/03/24 14:55 06/03/24 15:10 06/03/24 15:27 Temperature 97.5 F L Pulse Rate 82 79 82 Respiratory Rate 18 18 16 Blood Pressure 115/62 123/61 134/56 L Pulse Oximetry 97 95 97 Oxygen Delivery Room Air Room Air Nasal Cannula Oxygen Flow Rate 2 06/03/24 15:45 06/03/24 16:00 06/03/24 16:30 Temperature 97.3 F L 97.3 F L 98.4 F Pulse Rate 86 86 92 Respiratory Rate 16 16 16 Blood Pressure 123/55 L 120/54 L 126/52 L Pulse Oximetry 98 100 96 Oxygen Delivery Oxygen Flow Rate 06/03/24 17:30 06/03/24 19:53 06/03/24 20:00 Temperature 98.4 F 97.7 F Pulse Rate 88 88 Respiratory Rate 16 14 Blood Pressure 100/58 L 109/58 L Pulse Oximetry 96 96 Oxygen Delivery Room Air Oxygen Flow Rate 06/04/24 00:16 06/04/24 05:17 06/04/24 07:45 Temperature 97.6 F 97.8 F Pulse Rate 80 74 Respiratory Rate 18 16 Blood Pressure 107/55 L 110/55 L Pulse Oximetry 96 96 95 Oxygen Delivery Room Air Oxygen Flow Rate Intake/Output Intake/Output: Intake & Output 06/01/24 06/02/24 06/03/24 06/04/24 23:59 23:59 23:59 23:59 Intake Total 240 640 675 Output Total 600 1600 400 Balance -360 -960 275 Meds/Results Medications: Active Medications Generic Name Dose Route Start Last Admin Trade Name Freq PRN Reason Stop Dose Admin Acetaminophen 650 mg 06/03/24 18:00 06/04/24 06:00 Acetaminophen 325 Mg Tablet PO 650 mg Q6HR [facility] Administration Hydrocodone Bitart/Acetaminophen 1 tab 06/03/24 15:32 Hydrocodone/Acetaminophen (*Crx) 5-325 Mg Tablet PO Q4H PRN Pain Rated 4-6 Hydrocodone Bitart/Acetaminophen 1 tab 06/03/24 15:32 06/04/24 06:02 Hydrocodone/Acetaminophen (*Crx) 7.5-325 Mg Tablet PO 1 tab Q4H PRN Administration Pain Rated 7-10 Amlodipine Besylate 10 mg 06/04/24 09:00 Amlodipine Besylate 10 Mg Tablet PO DAILY [facility] Apixaban 2.5 mg 06/03/24 21:00 06/03/24 20:40 Apixaban 2.5 Mg Tablet PO 07/08/24 09:01 2.5 mg Q12HR [facility] Administration Atorvastatin Calcium 40 mg 06/04/24 09:00 Atorvastatin 40 Mg Tablet PO DAILY [facility] Dextrose 12.5 gm 06/03/24 18:53 Dextrose 50% 25 Gm/50 Ml Syringe IV PUSH PRN PRN Hypoglycemia Protocol Empagliflozin 25 mg 06/04/24 09:00 Empagliflozin 25 Mg Tablet PO DAILY [facility] Escitalopram Oxalate 20 mg 06/04/24 09:00 Escitalopram Oxalate 10 Mg Tablet PO DAILY [facility] Gabapentin 300 mg 06/03/24 21:00 06/03/24 20:40 Gabapentin 300 Mg Capsule PO 300 mg HS [facility] Administration Glucagon 1 mg 06/03/24 18:53 Glucagon For Inj 1 Mg Vial IM PRN PRN Hypoglycemia Protocol Glucose 15 gm 06/03/24 18:53 Glucose Oral Gel 15 Gm Of Glucse In 37.5 Gm Tube PO PRN PRN Hypoglycemia Protocol Hydrochlorothiazide 25 mg 06/04/24 09:00 Hydrochlorothiazide 25 Mg Tablet PO QAM [facility] Hydromorphone HCl 1 mg 06/03/24 15:32 Hydromorphone Hcl Inj (*Crx) 1 Mg/Ml Syr IV PUSH Q2H PRN Breakthrough Pain Rated 7-10 or NPO Hydromorphone HCl 0.5 mg 06/03/24 15:32 Hydromorphone Hcl Inj (*Crx) 1 Mg/Ml Syr IV PUSH Q2H PRN Breakthrough Pain Rated 4-6 or NPO Hydroxyzine Pamoate 50 mg 06/03/24 15:32 Hydroxyzine Pamoate 25 Mg Capsule PO Q4H PRN Itching Cefazolin Sodium 2 gm in 50 mls @ 100 mls/hr 06/03/24 22:00 06/04/24 06:31 Ancef 2 Gm/D5w 50 Ml IVPB 06/04/24 14:29 Infused Q8H [facility] Infusion Ibuprofen 800 mg in 200 mls @ 400 mls/hr 06/03/24 15:32 Caldolor 800 Mg/200 Ml IVPB Q6H PRN Breakthrough Pain Rated 1-3 or NPO Dextrose 1,000 mls @ 100 mls/hr 06/03/24 18:53 Dextrose 5% 1,000 Ml IVPB PRN PRN Hypoglycemia Protocol Insulin Aspart 2 - 5 units 06/04/24 08:00 Insulin Aspart (*Bkc) 100 Units/Ml SUB-Q TIDWM [facility] Protocol Insulin Aspart 1 - 2 units 06/03/24 21:00 06/03/24 21:22 Insulin Aspart (*Bkc) 100 Units/Ml SUB-Q Not Given HS [facility] Protocol Irbesartan 75 mg 06/04/24 09:00 Irbesartan 75 Mg Tablet PO QAM [facility] Isosorbide Mononitrate 60 mg 06/04/24 09:00 Isosorbide Mononitrate 60 Mg Tab.Er.24h [facility] Levothyroxine Sodium 50 mcg 06/04/24 06:30 06/04/24 06:01 Levothyroxine Sodium 50 Mcg Tablet PO 50 mcg DAILY@0630 [facility] Administration Linaclotide 72 mcg 06/04/24 06:30 06/04/24 06:00 Linaclotide 72 Mcg Capsule PO 72 mcg DAILY@0630 [facility] Administration Metoprolol Succinate 25 mg 06/04/24 09:00 Metoprolol Succinate Ext Rel 25 Mg Tabcr [facility] Naloxone HCl 0.1 mg 06/03/24 15:32 Naloxone Hcl 0.4 Mg/Ml Vial IV PUSH Q2M PRN Opiate Reversal Ondansetron HCl 4 mg 06/03/24 15:32 Ondansetron Inj 4 Mg/2 Ml Vial IV PUSH Q4H PRN Nausea And Vomiting Pantoprazole Sodium 40 mg 06/03/24 21:00 06/03/24 20:40 Pantoprazole 40 Mg Tablet PO 40 mg Q12HR [facility] Administration Polyethylene Glycol 17 gm 06/04/24 09:00 Polyethylene Glycol 3350 17 Gm Powd.Pack [facility] Senna/Docusate Sodium 2 tab 06/03/24 17:00 06/03/24 17:05 Senna/Docusate Sodium Tablet PO 2 tab BID [facility] Administration Tramadol HCl 50 mg 06/03/24 15:32 Tramadol Hcl (*Crx) 50 Mg Tablet PO Q4H PRN Pain Rated 1-3 Radiology Results: ITS Impressions Head CT 06/02/24 12:41 IMPRESSION: 1. Old lacunar infarct in the right basal ganglia. Cervical Spine CT 06/02/24 12:43 IMPRESSION: 1. No fracture. 2. Mild cervical spondylosis. Knee X-Ray 06/02/24 13:01 IMPRESSION: 1. Moderate right knee osteoarthritis. Chest X-Ray 06/02/24 13:02 IMPRESSION: No focal infiltrate or effusion. Hip/Pelvis X-Ray 06/02/24 13:07 IMPRESSION: 1. Comminuted intertrochanteric fracture of proximal right femur. 2. Mild osteoarthritis of the hips. Intraoperative X-Ray 06/03/24 14:22 IMPRESSION: 1. Near-anatomic alignment post open reduction internal fixation of a comminuted intratrochanteric fracture of the proximal right femur. See procedure note for further detail. Labs Labs: Laboratory Results - last 24 hr 06/03/24 06/03/24 06/03/24 07:00 08:05 11:37 WBC RBC Hgb Hct MCV MCH MCHC RDW Plt Count MPV Immature Gran % (Auto) Neut % (Auto) Lymph % (Auto) [place] % (Auto) Eos % (Auto) Baso % (Auto) Lymph # (Auto) [place] # (Auto) Eos # (Auto) Baso # (Auto) Abs Immat Gran (auto) Absolute Neuts (auto) Absolute Nucleated RBC Nucleated RBC % Sodium Potassium Chloride Carbon Dioxide Anion Gap BUN Creatinine Estim Creat Clear Calc Estimated GFR Glucose POC Capillary Glucose 135 H 154 H Calcium TSH (Reflex) 4.570 Free T4 0.87 Total T3 0.85 L 06/03/24 06/03/24 06/03/24 14:55 16:15 20:59 WBC RBC Hgb Hct MCV MCH MCHC RDW Plt Count MPV Immature Gran % (Auto) Neut % (Auto) Lymph % (Auto) [place] % (Auto) Eos % (Auto) Baso % (Auto) Lymph # (Auto) [place] # (Auto) Eos # (Auto) Baso # (Auto) Abs Immat Gran (auto) Absolute Neuts (auto) Absolute Nucleated RBC Nucleated RBC % Sodium Potassium Chloride Carbon Dioxide Anion Gap BUN Creatinine Estim Creat Clear Calc Estimated GFR Glucose POC Capillary Glucose 124 H 141 H 186 H Calcium TSH (Reflex) Free T4 Total T3 06/04/24 05:58 WBC 8.5 RBC 3.12 L Hgb 9.2 L Hct 29.5 L MCV 94.6 MCH 29.5 MCHC 31.2 L RDW 14.8 H Plt Count 201 MPV 9.2 Immature Gran % (Auto) 0.5 Neut % (Auto) 65.7 Lymph % (Auto) 16.8 L [place] % (Auto) 12.8 H Eos % (Auto) 3.6 Baso % (Auto) 0.6 Lymph # (Auto) 1.42 [place] # (Auto) 1.1 H Eos # (Auto) 0.3 Baso # (Auto) 0.1 Abs Immat Gran (auto) 0.04 H Absolute Neuts (auto) 5.6 Absolute Nucleated RBC 0.000 Nucleated RBC % 0.0 Sodium 133 L Potassium 3.7 Chloride 108 H Carbon Dioxide 17 L Anion Gap 8 BUN 37 H Creatinine 1.70 H Estim Creat Clear Calc 20 Estimated GFR 29 L Glucose 137 H POC Capillary Glucose Calcium 8.5 TSH (Reflex) Free T4 Total T3
[2024-06-04 08:14] LABS: Glucose Point of Care 144 mg/dl (65-105)
[2024-06-04] MEDS: traMADol HCL (*CRX) 50 MG TABLET PO (08:44)
[2024-06-04] MEDS: IRBESARTAN 75 MG TABLET PO (08:44)
[2024-06-04] MEDS: ISOSORBIDE MONONITRATE 60 MG TAB.ER.24H PO (08:44)
[2024-06-04] MEDS: ESCITALOPRAM OXALATE 10 MG TABLET 20 MG PO (08:44)
[2024-06-04] MEDS: SENNA/DOCUSATE SODIUM TABLET 2 TAB PO ×2 (08:44→17:14)
[2024-06-04] MEDS: polyethylene glycoL 3350 17 GM POWD.PACK PO (08:45)
[2024-06-04] MEDS: EMPAGLIFLOZIN 25 MG TABLET PO (08:45)
[2024-06-04] MEDS: METOPROLOL SUCCINATE EXT REL 25 MG TABCR PO (08:45)
[2024-06-04] MEDS: ATORVASTATIN 40 MG TABLET PO (08:45)
[2024-06-04] MEDS: PANTOPRAZOLE 40 MG TABLET PO ×2 (08:45→21:00)
[2024-06-04] MEDS: APIXABAN 2.5 MG TABLET PO ×2 (08:45→21:00)
--- NOTE | 2024-06-04 09:20 | P.PNAN_ITS ---
Anes - Prog Note Post-Op Date/Time: 06/04/24 09:20 Cardiovascular status: normal Respiratory status: normal Airway patency: baseline Mental status: baseline Post-Op hydration status: normal Vital Signs: Last Vital Signs Temp 36.4 C 06/04/24 09:17 Pulse 79 06/04/24 09:17 Resp 16 06/04/24 09:17 BP 122/58 L 06/04/24 09:17 Pulse Ox 98 06/04/24 09:17 O2 Del Method Room Air 06/04/24 07:56 O2 Flow Rate 2 06/03/24 15:27 Pain Score (VAS): 1 I/O: Intake & Output 06/03/24 06/04/24 06/04/24 23:59 07:59 15:59 Intake Total 290 675 450 Output Total 250 400 Balance 40 275 450 Laboratory Tests 06/04/24 05:58 06/04/24 05:58 06/03/24 06/03/24 06/03/24 07:00 11:37 14:55 WBC RBC Hgb Hct MCV MCH MCHC RDW Plt Count MPV Immature Gran % (Auto) Neut % (Auto) Lymph % (Auto) [place] % (Auto) Eos % (Auto) Baso % (Auto) Lymph # (Auto) [place] # (Auto) Eos # (Auto) Baso # (Auto) Abs Immat Gran (auto) Absolute Neuts (auto) Absolute Nucleated RBC Nucleated RBC % Sodium Potassium Chloride Carbon Dioxide Anion Gap BUN Creatinine Estim Creat Clear Calc Estimated GFR Glucose POC Capillary Glucose 154 H 124 H Calcium Free T4 0.87 Total T3 0.85 L 06/03/24 06/03/24 06/04/24 16:15 20:59 05:58 WBC 8.5 RBC 3.12 L Hgb 9.2 L Hct 29.5 L MCV 94.6 MCH 29.5 MCHC 31.2 L RDW 14.8 H Plt Count 201 MPV 9.2 Immature Gran % (Auto) 0.5 Neut % (Auto) 65.7 Lymph % (Auto) 16.8 L [place] % (Auto) 12.8 H Eos % (Auto) 3.6 Baso % (Auto) 0.6 Lymph # (Auto) 1.42 [place] # (Auto) 1.1 H Eos # (Auto) 0.3 Baso # (Auto) 0.1 Abs Immat Gran (auto) 0.04 H Absolute Neuts (auto) 5.6 Absolute Nucleated RBC 0.000 Nucleated RBC % 0.0 Sodium 133 L Potassium 3.7 Chloride 108 H Carbon Dioxide 17 L Anion Gap 8 BUN 37 H Creatinine 1.70 H Estim Creat Clear Calc 20 Estimated GFR 29 L Glucose 137 H POC Capillary Glucose 141 H 186 H Calcium 8.5 Free T4 Total T3 06/04/24 07:37 WBC RBC Hgb Hct MCV MCH MCHC RDW Plt Count MPV Immature Gran % (Auto) Neut % (Auto) Lymph % (Auto) [place] % (Auto) Eos % (Auto) Baso % (Auto) Lymph # (Auto) [place] # (Auto) Eos # (Auto) Baso # (Auto) Abs Immat Gran (auto) Absolute Neuts (auto) Absolute Nucleated RBC Nucleated RBC % Sodium Potassium Chloride Carbon Dioxide Anion Gap BUN Creatinine Estim Creat Clear Calc Estimated GFR Glucose POC Capillary Glucose 144 H Calcium Free T4 Total T3 Post-procedural complaints: none Patient Feedback: Patient satisfied with anesthetic care.
--- NOTE | 2024-06-04 10:39 | P.PNIM_ITS ---
Progress Note: A&P Assessment and Plan (1) Intertrochanteric fracture of right hip: Code(s): S72.141A - Displaced intertrochanteric fracture of right femur, initial encounter for closed fracture Status: Acute Assessment and Plan: * Hip x-ray shown comminuted intertrochanteric fracture of proximal right femur, mild osteoarthritis of the hips * Ortho consulted and took patient to the OR yesterday for IT nailing of the right hip * Continue pain control * Continue diabetic diet * Case coordination consulted for rehab planning * Eliquis restarted * PT and OT * Continue hip precautions * Continue incentive spirometry 10 times per hour (2) Ground-level fall: Code(s): W18.30XA - Fall on same level, unspecified, initial encounter Status: Acute Assessment and Plan: * s/p ground level fall * PT and OT ordered post surgical intervention (3) Chronic pain: Code(s): G89.29 - Other chronic pain Status: Acute Assessment and Plan: * Patient reports having pain pump replaced last week. * Patient had area in back drained twice with a blood patch last week. * Area on left back protruding, no external drainage. * Neurosurgery consult. * CT thoracic lumbar today showed: IMPRESSION: 1. Oblique fracture of the right L3 pedicle. 2. Moderate thoracic spondylosis and severe lumbar spondylosis. 3. Scoliosis. 4. Subcutaneous fluid collection at L3 around the catheter tubing. 5. Mild bilateral hydronephrosis and hydroureter. (4) Hypertension: Code(s): I10 - Essential (primary) hypertension Status: Chronic Assessment and Plan: * Blood pressure improved 122/54. * Good oral intake. * Restart home Amlodipine 10 mg PO daily and HCTZ 25 mg PO daily in the AM. (5) Type 2 diabetes mellitus: Code(s): E11.9 - Type 2 diabetes mellitus without complications Status: Chronic Assessment and Plan: * Blood sugars ranging 144-184 * Hgb A1C 6.3 * Accu checks AC/HS * low dose SSI ordered * hypoglycemic protocol in place * Diabetic diet ordered * Hold glipizide * Continue Jardiance (6) Paroxysmal atrial fibrillation: Code(s): I48.0 - Paroxysmal atrial fibrillation Status: Chronic Assessment and Plan: * Continue metoprolol * Continue Eliquis postoperatively (7) Hypothyroidism: Code(s): E03.9 - Hypothyroidism, unspecified Status: Chronic Assessment and Plan: * Continue Synthroid * TSH 4.570, free T4 pending (8) Chronic constipation: Code(s): K59.09 - Other constipation Status: Acute Assessment and Plan: * Docusate sod/ senna 2 tab PO BID and Miralax 17 gm PO daily. * Encourage PO intake. Subjective Date/time seen: 06/04/24 10:39 Interval history: Patient denies chest pain, palpitations, shortness of breath,headache, or dizziness. Patient reports pain in right hip is a 3 , constant, and aching. Patient asked to check area on back that is swollen, denies drainage. Patient reports that she had her pain pump replaced last week and that since then she had to have her back drained twice and a blood patch but continues to fill up, Neurosurgery consulted. at bedside. Review of Systems Review of Systems: All systems reviewed & are unremarkable except as noted in HPI and below Exam Const: General: no acute distress Resp: Effort & Inspection: normal respiratory effort Auscultation: clear to auscultation bilaterally Cardio: Rate: regular rate Rhythm: regular rhythm GI: GI Palp: Yes Soft to palpation Other: Hypo bowel sounds Skin: Other: OR dressing to right hip clean dry and intact, pain pump to mid left back which is chronic- area is raised and bulging. Pain pump incision approximated with glue in left abdomen. Extrem: General: no pedal edema Psych: Affect: normal affect Objective Data Vital Signs Vital Signs: Vital Signs - 24 hr 06/03/24 10:55 06/03/24 11:45 06/03/24 12:55 Temperature 97.9 F Pulse Rate 89 90 Respiratory Rate 16 Blood Pressure 80/50 L 97/48 L 110/54 L Pulse Oximetry 97 97 Oxygen Delivery Room Air Oxygen Flow Rate 06/03/24 14:25 06/03/24 14:40 06/03/24 14:55 Temperature 97.8 F Pulse Rate 83 80 82 Respiratory Rate 22 H 18 18 Blood Pressure 124/59 L 126/61 115/62 Pulse Oximetry 98 100 97 Oxygen Delivery Simple Face Mask Simple Face Mask Room Air Oxygen Flow Rate 8 8 06/03/24 15:10 06/03/24 15:27 06/03/24 15:45 Temperature 97.5 F L 97.3 F L Pulse Rate 79 82 86 Respiratory Rate 18 16 16 Blood Pressure 123/61 134/56 L 123/55 L Pulse Oximetry 95 97 98 Oxygen Delivery Room Air Nasal Cannula Oxygen Flow Rate 2 06/03/24 16:00 06/03/24 16:30 06/03/24 17:30 Temperature 97.3 F L 98.4 F 98.4 F Pulse Rate 86 92 88 Respiratory Rate 16 16 16 Blood Pressure 120/54 L 126/52 L 100/58 L Pulse Oximetry 100 96 96 Oxygen Delivery Oxygen Flow Rate 06/03/24 19:53 06/03/24 20:00 06/04/24 00:16 Temperature 97.7 F 97.6 F Pulse Rate 88 80 Respiratory Rate 14 18 Blood Pressure 109/58 L 107/55 L Pulse Oximetry 96 96 Oxygen Delivery Room Air Oxygen Flow Rate 06/04/24 05:17 06/04/24 07:45 06/04/24 07:56 Temperature 97.8 F Pulse Rate 74 Respiratory Rate 16 Blood Pressure 110/55 L Pulse Oximetry 96 95 Oxygen Delivery Room Air Room Air Oxygen Flow Rate 06/04/24 09:17 06/04/24 08:44 Temperature 97.6 F Pulse Rate 79 Respiratory Rate 16 Blood Pressure 122/58 L Pulse Oximetry 98 Oxygen Delivery Room Air Oxygen Flow Rate Intake/Output Intake/Output: Intake & Output 06/01/24 06/02/24 06/03/24 06/04/24 23:59 23:59 23:59 23:59 Intake Total 888 348 4652 Output Total 600 1600 400 Balance -360 -960 725 Meds/Results Medications: Active Medications Generic Name Dose Route Start Last Admin Trade Name Jung PRN Reason Stop Dose Admin Acetaminophen 650 mg 06/03/24 18:00 06/04/24 06:00 Acetaminophen 325 Mg Tablet PO 650 mg Q6HR [facility] Administration Hydrocodone Bitart/Acetaminophen 1 tab 06/03/24 15:32 Hydrocodone/Acetaminophen (*Crx) 5-325 Mg Tablet PO Q4H PRN Pain Rated 4-6 Hydrocodone Bitart/Acetaminophen 1 tab 06/03/24 15:32 06/04/24 06:02 Hydrocodone/Acetaminophen (*Crx) 7.5-325 Mg Tablet PO 1 tab Q4H PRN Administration Pain Rated 7-10 Amlodipine Besylate 10 mg 06/04/24 09:00 Amlodipine Besylate 10 Mg Tablet PO DAILY [facility] Apixaban 2.5 mg 06/03/24 21:00 06/04/24 08:45 Apixaban 2.5 Mg Tablet PO 07/08/24 09:01 2.5 mg Q12HR [facility] Administration Atorvastatin Calcium 40 mg 06/04/24 09:00 06/04/24 08:45 Atorvastatin 40 Mg Tablet PO 40 mg DAILY [facility] Administration Dextrose 12.5 gm 06/03/24 18:53 Dextrose 50% 25 Gm/50 Ml Syringe IV PUSH PRN PRN Hypoglycemia Protocol Empagliflozin 25 mg 06/04/24 09:00 06/04/24 08:45 Empagliflozin 25 Mg Tablet PO 25 mg DAILY [facility] Administration Escitalopram Oxalate 20 mg 06/04/24 09:00 06/04/24 08:44 Escitalopram Oxalate 10 Mg Tablet PO 20 mg DAILY [facility] Administration Gabapentin 300 mg 06/03/24 21:00 06/03/24 20:40 Gabapentin 300 Mg Capsule PO 300 mg HS [facility] Administration Glucagon 1 mg 06/03/24 18:53 Glucagon For Inj 1 Mg Vial IM PRN PRN Hypoglycemia Protocol Glucose 15 gm 06/03/24 18:53 Glucose Oral Gel 15 Gm Of Glucse In 37.5 Gm Tube PO PRN PRN Hypoglycemia Protocol Hydrochlorothiazide 25 mg 06/04/24 09:00 Hydrochlorothiazide 25 Mg Tablet PO QAM [facility] Hydromorphone HCl 1 mg 06/03/24 15:32 Hydromorphone Hcl Inj (*Crx) 1 Mg/Ml Syr IV PUSH Q2H PRN Breakthrough Pain Rated 7-10 or NPO Hydromorphone HCl 0.5 mg 06/03/24 15:32 Hydromorphone Hcl Inj (*Crx) 1 Mg/Ml Syr IV PUSH Q2H PRN Breakthrough Pain Rated 4-6 or NPO Hydroxyzine Pamoate 50 mg 06/03/24 15:32 Hydroxyzine Pamoate 25 Mg Capsule PO Q4H PRN Itching Cefazolin Sodium 2 gm in 50 mls @ 100 mls/hr 06/03/24 22:00 06/04/24 06:31 Ancef 2 Gm/D5w 50 Ml IVPB 06/04/24 14:29 Infused Q8H [facility] Infusion Ibuprofen 800 mg in 200 mls @ 400 mls/hr 06/03/24 15:32 Caldolor 800 Mg/200 Ml IVPB Q6H PRN Breakthrough Pain Rated 1-3 or NPO Dextrose 1,000 mls @ 100 mls/hr 06/03/24 18:53 Dextrose 5% 1,000 Ml IVPB PRN PRN Hypoglycemia Protocol Insulin Aspart 2 - 5 units 06/04/24 08:00 06/04/24 07:37 Insulin Aspart (*Bkc) 100 Units/Ml SUB-Q Not Given TIDWM [facility] Protocol Insulin Aspart 1 - 2 units 06/03/24 21:00 06/03/24 21:22 Insulin Aspart (*Bkc) 100 Units/Ml SUB-Q Not Given HS [facility] Protocol Irbesartan 75 mg 06/04/24 09:00 06/04/24 08:44 Irbesartan 75 Mg Tablet PO 75 mg QAM [facility] Administration Isosorbide Mononitrate 60 mg 06/04/24 09:00 06/04/24 08:44 Isosorbide Mononitrate 60 Mg Tab.Er.24h PO 60 mg QAM [facility] Administration Levothyroxine Sodium 50 mcg 06/04/24 06:30 06/04/24 06:01 Levothyroxine Sodium 50 Mcg Tablet PO 50 mcg DAILY@0630 [facility] Administration Linaclotide 72 mcg 06/04/24 06:30 06/04/24 06:00 Linaclotide 72 Mcg Capsule PO 72 mcg DAILY@0630 [facility] Administration Metoprolol Succinate 25 mg 06/04/24 09:00 06/04/24 08:45 Metoprolol Succinate Ext Rel 25 Mg Tabcr PO 25 mg QAM [facility] Administration Naloxone HCl 0.1 mg 06/03/24 15:32 Naloxone Hcl 0.4 Mg/Ml Vial IV PUSH Q2M PRN Opiate Reversal Ondansetron HCl 4 mg 06/03/24 15:32 Ondansetron Inj 4 Mg/2 Ml Vial IV PUSH Q4H PRN Nausea And Vomiting Pantoprazole Sodium 40 mg 06/03/24 21:00 06/04/24 08:45 Pantoprazole 40 Mg Tablet PO 40 mg Q12HR [facility] Administration Polyethylene Glycol 17 gm 06/04/24 09:00 06/04/24 08:45 Polyethylene Glycol 3350 17 Gm Powd.Pack PO 17 gm QAM [facility] Administration Senna/Docusate Sodium 2 tab 06/03/24 17:00 06/04/24 08:44 Senna/Docusate Sodium Tablet PO 2 tab BID [facility] Administration Tramadol HCl 50 mg 06/03/24 15:32 06/04/24 08:44 Tramadol Hcl (*Crx) 50 Mg Tablet PO 50 mg Q4H PRN Administration Pain Rated 1-3 Radiology Results: ITS Impressions Head CT 06/02/24 12:41 IMPRESSION: 1. Old lacunar infarct in the right basal ganglia. Cervical Spine CT 06/02/24 12:43 IMPRESSION: 1. No fracture. 2. Mild cervical spondylosis. Knee X-Ray 06/02/24 13:01 IMPRESSION: 1. Moderate right knee osteoarthritis. Chest X-Ray 06/02/24 13:02 IMPRESSION: No focal infiltrate or effusion. Hip/Pelvis X-Ray 06/02/24 13:07 IMPRESSION: 1. Comminuted intertrochanteric fracture of proximal right femur. 2. Mild osteoarthritis of the hips. Intraoperative X-Ray 06/03/24 14:22 IMPRESSION: 1. Near-anatomic alignment post open reduction internal fixation of a comminuted intratrochanteric fracture of the proximal right femur. See procedure note for further detail. Labs Labs: Laboratory Results - last 24 hr 06/03/24 06/03/24 06/03/24 07:00 11:37 14:55 WBC RBC Hgb Hct MCV MCH MCHC RDW Plt Count MPV Immature Gran % (Auto) Neut % (Auto) Lymph % (Auto) [place] % (Auto) Eos % (Auto) Baso % (Auto) Lymph # (Auto) [place] # (Auto) Eos # (Auto) Baso # (Auto) Abs Immat Gran (auto) Absolute Neuts (auto) Absolute Nucleated RBC Nucleated RBC % Sodium Potassium Chloride Carbon Dioxide Anion Gap BUN Creatinine Estim Creat Clear Calc Estimated GFR Glucose POC Capillary Glucose 154 H 124 H Calcium Total T3 0.85 L 06/03/24 06/03/24 06/04/24 16:15 20:59 05:58 WBC 8.5 RBC 3.12 L Hgb 9.2 L Hct 29.5 L MCV 94.6 MCH 29.5 MCHC 31.2 L RDW 14.8 H Plt Count 201 MPV 9.2 Immature Gran % (Auto) 0.5 Neut % (Auto) 65.7 Lymph % (Auto) 16.8 L [place] % (Auto) 12.8 H Eos % (Auto) 3.6 Baso % (Auto) 0.6 Lymph # (Auto) 1.42 [place] # (Auto) 1.1 H Eos # (Auto) 0.3 Baso # (Auto) 0.1 Abs Immat Gran (auto) 0.04 H Absolute Neuts (auto) 5.6 Absolute Nucleated RBC 0.000 Nucleated RBC % 0.0 Sodium 133 L Potassium 3.7 Chloride 108 H Carbon Dioxide 17 L Anion Gap 8 BUN 37 H Creatinine 1.70 H Estim Creat Clear Calc 20 Estimated GFR 29 L Glucose 137 H POC Capillary Glucose 141 H 186 H Calcium 8.5 Total T3 06/04/24 07:37 WBC RBC Hgb Hct MCV MCH MCHC RDW Plt Count MPV Immature Gran % (Auto) Neut % (Auto) Lymph % (Auto) [place] % (Auto) Eos % (Auto) Baso % (Auto) Lymph # (Auto) [place] # (Auto) Eos # (Auto) Baso # (Auto) Abs Immat Gran (auto) Absolute Neuts (auto) Absolute Nucleated RBC Nucleated RBC % Sodium Potassium Chloride Carbon Dioxide Anion Gap BUN Creatinine Estim Creat Clear Calc Estimated GFR Glucose POC Capillary Glucose 144 H Calcium Total T3 Quality VTE Prophylaxis VTE prophylaxis: mechanical ordered
[2024-06-04 11:27] LABS: Glucose Point of Care 184 mg/dl (65-105)
[2024-06-04 16:23] LABS: Glucose Point of Care 194 mg/dl (65-105)
--- NOTE | 2024-06-04 17:22 | P.CONNS_ITS ---
Assessment and Plan Assessment and plan (1) Status post insertion of intrathecal pump: Code(s): Z98.890 - Other specified postprocedural states Status: Acute Plan Ms. Escobar is an 83-year-old female who had a placement of a morphine intrathecal pain pump in March with Dr. March who has had continued swelling at the site in her lumbar region where the intrathecal catheter was placed. She has not had any external drainage from this incision, signs of infection, pain at the site, or problems with the functioning of her pump. Dr. Blackman performed multiple procedures over the last couple months to address this. On my diya luation, the site does not appear infected. There is no drainage, and the incision site appears well healed. It is not tender to palpation. I did review the CT scan on which there is a focal collection at the entry site of her catheter in the soft tissue. It is difficult to say definitively whether there is connection between this and her thecal sac, although it is certainly possible. Given that she is asymptomatic at this time aside from this focal area of swelling, I do not recommend any surgical treatment. I would not recommend tapping the fluid collection again as I think that this risks introducing infection. Even if this is spinal fluid, she does not have any signs of a CSF leak. She should follow-up with Dr. Blackman as scheduled. Consult date: 06/04/24 Time Seen: 13:00 HPI: Britney Escobar is a 83 year old female with history of chronic low back pain who was admitted two days ago with a right hip fracture. She had surgery for this yesterday with Dr. Davila. I was consulted today because of a focal area of swelling that she has in her lumbar region. She underwent placement of a morphine pain pump with Dr. Blackman in March which was placed for chronic low back and hip pain. The pump has been helpful for her, but she developed immediate swelling at the site of the catheter implantation in her lower back. Dr. Blackman has apparently tapped this fluid collection several times to drain it and told her it might be CSF. She had a blood patch performed at some point as well. She also required revision of her abdominal pump incision site earlier this month. She continues to have a focal area of swelling in her lumbar spine, and I was consulted to see if anything further needed to be done for this. She has not had any external drainage from either incision. She denies any positional headaches, signs of infection, or problems with the functioning of the pump. She has follow-up scheduled with Dr. Blackman next week. Review of Systems Review of Systems: All systems reviewed & are unremarkable except as noted in HPI and below PMFSH Past Medical History Medical History Anemia Anxiety Arthritis Bladder cancer Blind Bowel obstruction Chronic anticoagulation Chronic kidney disease, stage 3 Chronic pain Chronic right hip pain Coronary artery disease Deep venous thrombosis Depression Diverticulitis Gastroesophageal reflux disease Hepatitis A History of blood transfusion History of rectal polyps Hyperlipidemia Hypertension Hypothyroidism Irritable bowel syndrome Macular degeneration Menieres disease Paroxysmal atrial fibrillation Seasonal allergies Skin cancer Transient ischemic attack Type 2 diabetes mellitus Surgical History Surgical History Greater trochanteric bursitis of right hip surgical re-debridement January 2020 H/O local excision of skin lesion History of angioplasty History of appendectomy History of back surgery History of bladder surgery History of brain surgery History of cardiac catheterization History of cataract surgery History of coronary artery stent placement History of coronary artery stent placement History of foot surgery Left History of hernia repair History of hip surgery Right hip abductor repair History of hysterectomy History of ileal conduit History of tonsillectomy Family History Family History Mother Diabetes mellitus Hypertension Family history of coronary artery disease Sibling Diabetes mellitus Hypertension Family history of malignant neoplasm Carcinoma of colon Family history of Alzheimer's disease Family history of malignant neoplasm of bone Family history of coronary artery disease Social History Social History (Updated 06/02/24 @ 21:40 by Lorie Mustafa PA-C) Social History: Surrogate medical decision maker: Samir Escobar, spouse. Code status: Smoking packs per day: 1 Smoking cigarettes per day: 20.0 Years smoked: 15 Smoking pack-years: 15.00 Smoking status: Former smoker Tobacco type: cigarettes Second hand tobacco smoke exposure: No Smoking end date: 08/12/99 Alcohol intake: never Alcohol use details: rarely Substance use: never Substance use type: opiates Other substance usage details: morphine pain pump placed about 2 months ago Do You Feel Safe in your Home?: Yes Lack of Transportation: No Lack of Food: Never True Current Housing: I Have Housing Concerned About Future Housing: No Difficulty Paying Gas/Electric Bills: No Difficulty Paying for Meds: No Currently Unemployed: No Education: High School Diploma/GED Difficulty w/ Childcare or Family Care: No Living arrangements: with family Additional living arrangements comments: Occupation/Education: retired Spiritual care concerns: No Meds Home Medications and Allergies Home Medications Medication Instructions Recorded Confirmed Type PreserVision AREDS-2 1 tab-cap PO DAILY 08/16/19 06/02/24 History apixaban 5 mg tablet (Eliquis) 5 mg PO BID 08/16/19 06/02/24 History metoprolol succinate 25 mg 25 mg PO DAILY 08/16/19 06/02/24 History tablet,extended release 24 hr nitroglycerin 0.4 mg sublingual 0.4 mg sublingual PRN PRN Chest 08/16/19 06/02/24 History tablet Pain pen needle, diabetic 32 gauge x #200 ea 07/04/20 06/02/24 Rx 1/4 (Novofine 32) gabapentin 300 mg capsule 300 mg PO QHS #30 caps 10/07/20 06/02/24 Rx levothyroxine 50 mcg capsule 50 mcg PO DAILY #1 cap 10/10/20 06/02/24 Rx triamcinolone acetonide 0.1 % 1 applic topical DAILY PRN Pain 08/31/21 06/02/24 History topical cream isosorbide mononitrate 60 mg 60 mg PO DAILY #7 tabs 12/19/21 06/02/24 Rx tablet,extended release 24 hr irbesartan 75 mg tablet 1 tablet DAILY 02/16/22 06/02/24 History ondansetron 4 mg disintegrating 4 mg PO Q8H PRN nausea and 07/02/22 06/02/24 Rx tablet vomiting #14 tabs linaclotide 72 mcg capsule 72 mcg PO DAILY 08/15/22 06/02/24 History (Linzess) trolamine salicylate 10 % topical 1 applic topical TID PRN muscle 08/23/22 06/02/24 Rx cream (Analgesic Creme) pain #85 grams hydrochlorothiazide 25 mg tablet 25 mg PO DAILY #90 tabs 10/23/22 06/02/24 Rx potassium chloride 8 mEq See Rx Instructions .Route 05/28/23 06/02/24 Rx capsule,extended release .COMPLEX #90 caps omeprazole 40 mg capsule,delayed 40 mg PO DAILY 1 month #90 caps 07/02/23 06/02/24 Rx release amlodipine 10 mg-atorvastatin 40 1 tablet PO DAILY #90 tabs 10/28/23 06/02/24 Rx mg tablet dulaglutide 1.5 mg/0.5 mL 1.5 mg (0.5 mL) subcut WEEKLY #6 mL 02/14/24 06/02/24 Rx subcutaneous pen injector glipizide 5 mg tablet 5 mg PO DAILY #90 tabs 05/28/24 06/02/24 Rx empagliflozin 25 mg tablet 25 mg PO DAILY 06/02/24 06/02/24 History (Jardiance) escitalopram oxalate 20 mg tablet 20 mg PO DAILY 06/02/24 06/02/24 History metformin 500 mg tablet,extended 1,000 mg PO DAILY 06/02/24 06/02/24 History release 24 hr Allergies Allergy/AdvReac Type Severity Reaction Status Date / Time dimenhydrinate Allergy Severe THROAT Verified 06/02/24 12:03 SWELLING iodine Allergy Intermediate Rash Verified 06/02/24 12:03 Contrast Media Allergy Intermediate RASH Uncoded 06/02/24 12:03 Vital Signs Vital Signs - 24 hr 06/03/24 17:30 06/03/24 19:53 06/03/24 20:00 Temperature 98.4 F 97.7 F Pulse Rate 88 88 Respiratory Rate 16 14 Blood Pressure 100/58 L 109/58 L Pulse Oximetry 96 96 Oxygen Delivery Room Air 06/04/24 00:16 06/04/24 05:17 06/04/24 07:45 Temperature 97.6 F 97.8 F Pulse Rate 80 74 Respiratory Rate 18 16 Blood Pressure 107/55 L 110/55 L Pulse Oximetry 96 96 95 Oxygen Delivery Room Air 06/04/24 07:56 06/04/24 09:17 06/04/24 08:44 Temperature 97.6 F Pulse Rate 79 Respiratory Rate 16 Blood Pressure 122/58 L Pulse Oximetry 98 Oxygen Delivery Room Air Room Air 06/04/24 13:02 06/04/24 17:07 Temperature 96.8 F L 97.9 F Pulse Rate 74 77 Respiratory Rate 16 16 Blood Pressure 122/54 L 99/58 L Pulse Oximetry 95 100 Oxygen Delivery Exam Narrative: Right thigh movement limited by surgical pain, otherwise intact The left abdominal pump site appears to be healing well There is a focal area of firm swelling at the incision in the lumbar region where the lumbar catheter was placed. There is no erythema or drainage. There is no pain to palpation. Unless otherwise stated above, the patient's physical exam is as follows: General: -Well developed and well nourished. No a cute distress. Cooperative with exam. Mental status: -Awake and oriented to person, place, an d time. Integumentary: -No obvious skin lesions or masses Motor: -Muscle tone normal without spasticity o f flaccidity. No atrophy. No fasciculations. -No pronator drift -Right upper extremity: deltoid 5/5, bic eps 5/5, triceps 5/5, wrist extensors 5/5, wrist flexors 5/5, intrinsics 5/5 -Left upper extremity: deltoid 5/5, keagan ps 5/5, triceps 5/5, wrist extensors 5/5, wrist flexors 5/5, intrinsics 5/5 -Right lower extremity: iliopsoas 5/5, q uadriceps 5/5, hamstrings 5/5, tibialis anterior 5/5, gastroc-soleus 5/5, EHL 5/5 -Left lower extremity: iliopsoas 5/5, qu adriceps 5/5, hamstrings 5/5, tibialis anterior 5/5, gastroc-soleus 5/5, EHL 5/5 Sensory: -Intact to light touch throughout -Normal proprioception throughout Results Labs 06/04/24 05:58 06/04/24 05:58 Labs: Short CBC 06/04/24 Range/Units 05:58 WBC 8.5 (4.5-10.0) K/mm3 Hgb 9.2 L (12.0-15.0) g/dL Hct 29.5 L (37.0-47.0) % Plt Count 201 (150-375) k/mm3 BMP 06/04/24 05:58 Sodium 133 L Potassium 3.7 Chloride 108 H Carbon Dioxide 17 L BUN 37 H Creatinine 1.70 H Glucose 137 H Calcium 8.5
[2024-06-04] MEDS: HYDROcodone/acetaminophen (*CRX) 5-325 MG TABLET 1 TAB PO (21:00)
[2024-06-04] MEDS: GABAPENTIN 300 MG CAPSULE PO (21:00)
[2024-06-04 21:39] LABS: Glucose Point of Care 141 mg/dl (65-105)
[2024-06-05 01:45] VITALS: BP 111/48; PULSE 80; RESP 20; TEMP 36.6; O2SAT 95
[2024-06-05] MEDS: BENZOCAINE/MENTHOL (*BKC) 18 EA LOZENGE 1 LOZENGE PO (03:21)
[2024-06-05 05:00] VITALS: BP 124/52; PULSE 83; RESP 18; TEMP 36.2; O2SAT 97
[2024-06-05] MEDS: LINACLOTIDE 72 MCG CAPSULE PO (06:11)
[2024-06-05] MEDS: LEVOTHYROXINE SODIUM 50 MCG TABLET PO (06:11)
[2024-06-05] MEDS: ACETAMINOPHEN 325 MG TABLET 650 MG PO ×3 (06:11→17:36)
--- NOTE | 2024-06-05 06:48 | P.PNOP_ITS ---
Progress Note: A&P Assessment and Plan (1) Intertrochanteric fracture of right hip: Code(s): S72.141A - Displaced intertrochanteric fracture of right femur, initial encounter for closed fracture Status: Acute Assessment and Plan: C/O moderate Pain. Wiggles Toes. Awaiting placement Subjective Subjective Date/Time Seen: 06/05/24 06:48 Post Op day: 2 Principal diagnosis: Right Intertrochanteric Fracture Review of Systems Review of Systems: 12 systems were reviewed and are negativ e except for as per HPI. Exam Narrative: Patient's dressing is intact she is wiggling her toes. Neurologically she is doing fine. Pain is tolerable. Objective Data Vital Signs Vital Signs: Vital Signs - 24 hr 06/04/24 07:45 06/04/24 07:56 06/04/24 09:17 Temperature 97.6 F Pulse Rate 79 Respiratory Rate 16 Blood Pressure 122/58 L Pulse Oximetry 95 98 Oxygen Delivery Room Air Room Air 06/04/24 08:44 06/04/24 13:02 06/04/24 17:07 Temperature 96.8 F L 97.9 F Pulse Rate 74 77 Respiratory Rate 16 16 Blood Pressure 122/54 L 99/58 L Pulse Oximetry 95 100 Oxygen Delivery Room Air 06/04/24 20:00 06/04/24 20:20 06/05/24 01:45 Temperature 97.6 F 98 F Pulse Rate 77 80 Respiratory Rate 20 20 Blood Pressure 95/49 L 111/48 L Pulse Oximetry 98 95 Oxygen Delivery Room Air 06/05/24 05:00 Temperature 97.1 F L Pulse Rate 83 Respiratory Rate 18 Blood Pressure 124/52 L Pulse Oximetry 97 Oxygen Delivery Intake/Output Intake/Output: Intake & Output 06/02/24 06/03/24 06/04/24 06/05/24 23:59 23:59 23:59 23:59 Intake Total 807 200 2818 300 Output Total 600 1600 1100 350 Balance -360 -960 575 -50 Meds/Results Medications: Active Medications Generic Name Dose Route Start Last Admin Trade Name Freq PRN Reason Stop Dose Admin Acetaminophen 650 mg 06/03/24 18:00 06/05/24 06:11 Acetaminophen 325 Mg Tablet PO 650 mg Q6HR DINORA Administration Hydrocodone Bitart/Acetaminophen 1 tab 06/03/24 15:32 06/04/24 21:00 Hydrocodone/Acetaminophen (*Crx) 5-325 Mg Tablet PO 1 tab Q4H PRN Administration Pain Rated 4-6 Hydrocodone Bitart/Acetaminophen 1 tab 06/03/24 15:32 06/04/24 13:40 Hydrocodone/Acetaminophen (*Crx) 7.5-325 Mg Tablet PO 1 tab Q4H PRN Administration Pain Rated 7-10 Amlodipine Besylate 10 mg 06/04/24 09:00 Amlodipine Besylate 10 Mg Tablet PO DAILY DINORA Apixaban 2.5 mg 06/03/24 21:00 06/04/24 21:00 Apixaban 2.5 Mg Tablet PO 07/08/24 09:01 2.5 mg Q12HR DINORA Administration Atorvastatin Calcium 40 mg 06/04/24 09:00 06/04/24 08:45 Atorvastatin 40 Mg Tablet PO 40 mg DAILY DINORA Administration Benzocaine 1 lozenge 06/05/24 03:06 06/05/24 03:21 Benzocaine/Menthol (*Bkc) 18 Ea Lozenge PO 1 lozenge PRN PRN Administration Sore Throat Dextrose 12.5 gm 06/03/24 18:53 Dextrose 50% 25 Gm/50 Ml Syringe IV PUSH PRN PRN Hypoglycemia Protocol Empagliflozin 25 mg 06/04/24 09:00 06/04/24 08:45 Empagliflozin 25 Mg Tablet PO 25 mg DAILY DINORA Administration Escitalopram Oxalate 20 mg 06/04/24 09:00 06/04/24 08:44 Escitalopram Oxalate 10 Mg Tablet PO 20 mg DAILY DINORA Administration Gabapentin 300 mg 06/03/24 21:00 06/04/24 21:00 Gabapentin 300 Mg Capsule PO 300 mg HS DINORA Administration Glucagon 1 mg 06/03/24 18:53 Glucagon For Inj 1 Mg Vial IM PRN PRN Hypoglycemia Protocol Glucose 15 gm 06/03/24 18:53 Glucose Oral Gel 15 Gm Of Glucse In 37.5 Gm Tube PO PRN PRN Hypoglycemia Protocol Hydrochlorothiazide 25 mg 06/04/24 09:00 Hydrochlorothiazide 25 Mg Tablet PO QAM DINORA Hydromorphone HCl 1 mg 06/03/24 15:32 Hydromorphone Hcl Inj (*Crx) 1 Mg/Ml Syr IV PUSH Q2H PRN Breakthrough Pain Rated 7-10 or NPO Hydromorphone HCl 0.5 mg 06/03/24 15:32 Hydromorphone Hcl Inj (*Crx) 1 Mg/Ml Syr IV PUSH Q2H PRN Breakthrough Pain Rated 4-6 or NPO Hydroxyzine Pamoate 50 mg 06/03/24 15:32 Hydroxyzine Pamoate 25 Mg Capsule PO Q4H PRN Itching Ibuprofen 800 mg in 200 mls @ 400 mls/hr 06/03/24 15:32 Caldolor 800 Mg/200 Ml IVPB Q6H PRN Breakthrough Pain Rated 1-3 or NPO Dextrose 1,000 mls @ 100 mls/hr 06/03/24 18:53 Dextrose 5% 1,000 Ml IVPB PRN PRN Hypoglycemia Protocol Insulin Aspart 2 - 5 units 06/04/24 08:00 06/04/24 16:17 Insulin Aspart (*Bkc) 100 Units/Ml SUB-Q Not Given TIDWM [facility] Protocol Insulin Aspart 1 - 2 units 06/03/24 21:00 06/04/24 20:50 Insulin Aspart (*Bkc) 100 Units/Ml SUB-Q Not Given HS [facility] Protocol Irbesartan 75 mg 06/04/24 09:00 06/04/24 08:44 Irbesartan 75 Mg Tablet PO 75 mg QAM [facility] Administration Isosorbide Mononitrate 60 mg 06/04/24 09:00 06/04/24 08:44 Isosorbide Mononitrate 60 Mg Tab.Er.24h PO 60 mg QAM [facility] Administration Levothyroxine Sodium 50 mcg 06/04/24 06:30 06/05/24 06:11 Levothyroxine Sodium 50 Mcg Tablet PO 50 mcg DAILY@0630 [facility] Administration Linaclotide 72 mcg 06/04/24 06:30 06/05/24 06:11 Linaclotide 72 Mcg Capsule PO 72 mcg DAILY@0630 [facility] Administration Metoprolol Succinate 25 mg 06/04/24 09:00 06/04/24 08:45 Metoprolol Succinate Ext Rel 25 Mg Tabcr PO 25 mg QAM [facility] Administration Naloxone HCl 0.1 mg 06/03/24 15:32 Naloxone Hcl 0.4 Mg/Ml Vial IV PUSH Q2M PRN Opiate Reversal Ondansetron HCl 4 mg 06/03/24 15:32 Ondansetron Inj 4 Mg/2 Ml Vial IV PUSH Q4H PRN Nausea And Vomiting Pantoprazole Sodium 40 mg 06/03/24 21:00 06/04/24 21:00 Pantoprazole 40 Mg Tablet PO 40 mg Q12HR DINORA Administration Polyethylene Glycol 17 gm 06/04/24 09:00 06/04/24 08:45 Polyethylene Glycol 3350 17 Gm Powd.Pack PO 17 gm QAM [facility]IN[facility]A Administration Senna/Docusate Sodium 2 tab 06/03/24 17:00 06/04/24 17:14 Senna/Docusate Sodium Tablet PO 2 tab BID DINORA Administration Tramadol HCl 50 mg 06/03/24 15:32 06/04/24 08:44 Tramadol Hcl (*Crx) 50 Mg Tablet PO 50 mg Q4H PRN Administration Pain Rated 1-3 Radiology Results: ITS Impressions Head CT 06/02/24 12:41 IMPRESSION: 1. Old lacunar infarct in the right basal ganglia. Cervical Spine CT 06/02/24 12:43 IMPRESSION: 1. No fracture. 2. Mild cervical spondylosis. Knee X-Ray 06/02/24 13:01 IMPRESSION: 1. Moderate right knee osteoarthritis. Chest X-Ray 06/02/24 13:02 IMPRESSION: No focal infiltrate or effusion. Hip/Pelvis X-Ray 06/02/24 13:07 IMPRESSION: 1. Comminuted intertrochanteric fracture of proximal right femur. 2. Mild osteoarthritis of the hips. Intraoperative X-Ray 06/03/24 14:22 IMPRESSION: 1. Near-anatomic alignment post open reduction internal fixation of a comminuted intratrochanteric fracture of the proximal right femur. See procedure note for further detail. Thoracic/Lumbar Spine CT 06/04/24 13:45 IMPRESSION: 1. Oblique fracture of the right L3 pedicle. 2. Moderate thoracic spondylosis and severe lumbar spondylosis. 3. Scoliosis. 4. Subcutaneous fluid collection at L3 around the catheter tubing. 5. Mild bilateral hydronephrosis and hydroureter. Labs Labs: Laboratory Results - last 24 hr 06/04/24 06/04/24 06/04/24 05:58 07:37 11:21 WBC 8.5 RBC 3.12 L Hgb 9.2 L Hct 29.5 L MCV 94.6 MCH 29.5 MCHC 31.2 L RDW 14.8 H Plt Count 201 MPV 9.2 Immature Gran % (Auto) 0.5 Neut % (Auto) 65.7 Lymph % (Auto) 16.8 L [place] % (Auto) 12.8 H Eos % (Auto) 3.6 Baso % (Auto) 0.6 Lymph # (Auto) 1.42 [place] # (Auto) 1.1 H Eos # (Auto) 0.3 Baso # (Auto) 0.1 Abs Immat Gran (auto) 0.04 H Absolute Neuts (auto) 5.6 Absolute Nucleated RBC 0.000 Nucleated RBC % 0.0 Sodium 133 L Potassium 3.7 Chloride 108 H Carbon Dioxide 17 L Anion Gap 8 BUN 37 H Creatinine 1.70 H Estim Creat Clear Calc 20 Estimated GFR 29 L Glucose 137 H POC Capillary Glucose 144 H 184 H Calcium 8.5 06/04/24 06/04/24 16:17 20:21 WBC RBC Hgb Hct MCV MCH MCHC RDW Plt Count MPV Immature Gran % (Auto) Neut % (Auto) Lymph % (Auto) [place] % (Auto) Eos % (Auto) Baso % (Auto) Lymph # (Auto) [place] # (Auto) Eos # (Auto) Baso # (Auto) Abs Immat Gran (auto) Absolute Neuts (auto) Absolute Nucleated RBC Nucleated RBC % Sodium Potassium Chloride Carbon Dioxide Anion Gap BUN Creatinine Estim Creat Clear Calc Estimated GFR Glucose POC Capillary Glucose 194 H 141 H Calcium
[2024-06-05 07:28] LABS: Glucose Point of Care 139 mg/dl (65-105)
[2024-06-05 07:35] LABS: Basophils Percent Auto 0.4 % (0.2-1.2); Eosinophils Absolute Auto 0.3 K/mm3 (0-0.3); Eosinophils Percent Auto 4.4 % (0-4.4); Hematocrit 26.2 % (37.0-47.0); Hemoglobin 8.3 g/dL (12.0-15.0); Immature Granulocyte Absolute 0.03 K/mm3 (0.00-0.031); Immature Granulocyte Percent A 0.4 % (0-0.5); Lymphocytes Absolute Auto 1.15 K/mm3 (0.9-3.2); Lymphocytes Percent Auto 15.7 % (18.3-44.2); Mean Corpuscular HGB Conc 31.7 g/dl (32-36); Mean Corpuscular Hemoglobin 29.4 pg (26-34); Mean Corpuscular Volume 92.9 fl (80-100); Mean Platelet Volume 9.2 fl (7.4-10.4); Monocytes Absolute Auto 0.8 K/mm3 (0.1-0.6); Monocytes Percent Auto 10.3 % (2.6-8.5); Neutrophils Percent Auto 68.8 % (45.5-73.1); Platelet Count Result 182 k/mm3 (150-375); Red Blood Count 2.82 M/mm3 (4.2-5.4); Red Cell Distribution Width 14.7 % (11.5-14.5); White Blood Count 7.3 K/mm3 (4.5-10.0)
[2024-06-05 07:47] LABS: Alanine Aminotransferase 6 U/L (6-35); Alkaline Phosphatase 54 U/L (38-126); Anion Gap 7 mmol/L (4-12); Aspartate Amino Transferase 24 U/L (14-36); Bilirubin,Total 0.4 mg/dL (0.2-1.3); Blood Urea Nitrogen 36 mg/dL (7-17); Calcium 8.4 mg/dL (8.4-10.2); Carbon Dioxide 20 mmol/L (22-30); Chloride 105 mmol/L (98-107); Estimated CRCL calculation 21 ml/min; Estimated Glomerular Filt Rate 31; Glucose 142 mg/dL (65-110); Sodium 132 mmol/L (137-145)
[2024-06-05] MEDS: SENNA/DOCUSATE SODIUM TABLET 2 TAB PO ×2 (08:50→17:36)
[2024-06-05] MEDS: EMPAGLIFLOZIN 25 MG TABLET PO (08:50)
[2024-06-05] MEDS: ATORVASTATIN 40 MG TABLET PO (08:50)
[2024-06-05] MEDS: ESCITALOPRAM OXALATE 10 MG TABLET 20 MG PO (08:50)
[2024-06-05] MEDS: PANTOPRAZOLE 40 MG TABLET PO ×2 (08:50→20:44)
[2024-06-05] MEDS: APIXABAN 2.5 MG TABLET PO ×2 (08:51→20:45)
[2024-06-05] MEDS: polyethylene glycoL 3350 17 GM POWD.PACK PO (08:51)
[2024-06-05] MEDS: ISOSORBIDE MONONITRATE 60 MG TAB.ER.24H PO (08:51)
[2024-06-05] MEDS: IRBESARTAN 75 MG TABLET PO (08:51)
[2024-06-05] MEDS: METOPROLOL SUCCINATE EXT REL 25 MG TABCR PO (08:51)
--- NOTE | 2024-06-05 10:35 | P.PNIM_ITS ---
Progress Note: A&P Assessment and Plan (1) Intertrochanteric fracture of right hip: Code(s): S72.141A - Displaced intertrochanteric fracture of right femur, initial encounter for closed fracture Status: Acute Assessment and Plan: * Hip x-ray shown comminuted intertrochanteric fracture of proximal right femur, mild osteoarthritis of the hips * Ortho consulted and took patient to the OR 06/03/24 for IT nailing of the right hip * Continue pain control * Continue diabetic diet * Case coordination consulted for rehab planning * Eliquis restarted * PT and OT * Continue hip precautions * Continue incentive spirometry 10 times per hour (2) Ground-level fall: Code(s): W18.30XA - Fall on same level, unspecified, initial encounter Status: Acute Assessment and Plan: * s/p ground level fall * PT and OT ordered post surgical intervention (3) Chronic constipation: Code(s): K59.09 - Other constipation Status: Acute Assessment and Plan: * Docusate sod/ senna 2 tab PO BID and Miralax 17 gm PO daily. * Encourage PO intake. * Give Dulocolax 10 mg MA suppository. * Add Dulcolax 5 mg PO daily PRN. * KUB today showed: FINDINGS: Fecal stasis within the pelvis. Air opacified cecum, ascending and transverse colons are present which are not distended. Radiodense device projects over the left lower quadrant, precluding evaluation of the underlying bowel loops. Findings consistent with prior anterior abdominal wall repair. Intramedullary libertad and screw within the right femur Significant degenerative disease within the visualized portion of the spine. IMPRESSION: Fecal stasis within the pelvis, consistent with patient's history. (4) Chronic pain: Code(s): G89.29 - Other chronic pain Status: Acute Assessment and Plan: * Patient reports having pain pump replaced last week. * Patient had area in back drained twice with a blood patch last week. * Area on left back protruding, no external drainage. Spoke to patient pain management Dr Ramirez office, Dr. Ramirez does not feel anything needs done acutely. Patient to see Dr. Ramirez on 06/15 at 9:30 AM. * Neurosurgery consulted. * CT thoracic lumbar today showed: IMPRESSION: 1. Oblique fracture of the right L3 pedicle. 2. Moderate thoracic spondylosis and severe lumbar spondylosis. 3. Scoliosis. 4. Subcutaneous fluid collection at L3 around the catheter tubing. 5. Mild bilateral hydronephrosis and hydroureter. (5) Hypertension: Code(s): I10 - Essential (primary) hypertension Status: Chronic Assessment and Plan: * Hold Amlodipine and HCTZ. * Good oral intake. (6) Type 2 diabetes mellitus: Code(s): E11.9 - Type 2 diabetes mellitus without complications Status: Chronic Assessment and Plan: * Blood sugars ranging 139-173 * Hgb A1C 6.3 * Accu checks AC/HS * low dose SSI ordered * hypoglycemic protocol in place * Diabetic diet ordered * Hold glipizide * Continue Jardiance (7) Paroxysmal atrial fibrillation: Code(s): I48.0 - Paroxysmal atrial fibrillation Status: Chronic Assessment and Plan: * Continue metoprolol * Continue Eliquis postoperatively (8) Hypothyroidism: Code(s): E03.9 - Hypothyroidism, unspecified Status: Chronic Assessment and Plan: * Continue Synthroid * TSH 4.570, free T4 0.87 Subjective Date/time seen: 06/05/24 10:35 Interval history: Patient reports pain in right hip is a 5 , constant, and aching. Patient reports that she has not had a bowel movement in 3-4 days. Patient reports taking a bowel regimen here and passing gas. Patient denies chest pain, palpitations, headache, nausea, or vomiting. Patient reports occasional lightheadedness. Patient sees Dr. Ramirez in pain management at [facility]. Patient reports that raised area on her back post procedure of new pain pump last week does not hurt to touch, patient reports that the doctor drained it twice and did a blood patch but it keeps filling up. Spoke with nurse Guido at Dr. Ramirez's office to update Dr. Ramirez about area on left back filling up and she stated it is patient spinal fluid and she will talk with Dr. Ramirez then get back with me. Lata called back and Dr. Ramirez okay with patient going to rehab for therapy and following up with him on June 15 at 9:30 AM, Dr. Ramirez did not feel anything needed acutely addressed. Review of Systems Review of Systems: All systems reviewed & are unremarkable except as noted in HPI and below Exam Const: General: no acute distress and uncomfortable Resp: Effort & Inspection: normal respiratory effort Auscultation: clear to auscultation bilaterally Cardio: Rate: regular rate Rhythm: regular rhythm GI: GI Palp: Yes Soft to palpation Auscultation: abnormal bowel sounds (hyp oactive bowel sounds ) Skin: Other: OR dressing to right hip clean dry and intact, pain pump to mid left back which is chronic- area is raised and bulging. Pain pump incision approximated with glue in left abdomen. Neuro: Speech: normal speech Extrem: General: normal to inspection Psych: Affect: normal affect Objective Data Vital Signs Vital Signs: Vital Signs - 24 hr 06/04/24 13:02 06/04/24 17:07 06/04/24 20:00 Temperature 96.8 F L 97.9 F Pulse Rate 74 77 Respiratory Rate 16 16 Blood Pressure 122/54 L 99/58 L Pulse Oximetry 95 100 Oxygen Delivery Room Air 06/04/24 20:20 06/05/24 01:45 06/05/24 05:00 Temperature 97.6 F 98 F 97.1 F L Pulse Rate 77 80 83 Respiratory Rate 20 20 18 Blood Pressure 95/49 L 111/48 L 124/52 L Pulse Oximetry 98 95 97 Oxygen Delivery Intake/Output Intake/Output: Intake & Output 06/02/24 06/03/24 06/04/24 06/05/24 23:59 23:59 23:59 23:59 Intake Total 219 439 4700 550 Output Total 600 1600 1100 350 Balance -360 -960 575 200 Meds/Results Medications: Active Medications Generic Name Dose Route Start Last Admin Trade Name Freq PRN Reason Stop Dose Admin Acetaminophen 650 mg 06/03/24 18:00 06/05/24 06:11 Acetaminophen 325 Mg Tablet PO 650 mg Q6HR DINORA Administration Hydrocodone Bitart/Acetaminophen 1 tab 06/03/24 15:32 06/04/24 21:00 Hydrocodone/Acetaminophen (*Crx) 5-325 Mg Tablet PO 1 tab Q4H PRN Administration Pain Rated 4-6 Hydrocodone Bitart/Acetaminophen 1 tab 06/03/24 15:32 06/04/24 13:40 Hydrocodone/Acetaminophen (*Crx) 7.5-325 Mg Tablet PO 1 tab Q4H PRN Administration Pain Rated 7-10 Amlodipine Besylate 10 mg 06/04/24 09:00 Amlodipine Besylate 10 Mg Tablet PO DAILY [facility] Apixaban 2.5 mg 10/23/24 21:00 06/05/24 08:51 Apixaban 2.5 Mg Tablet PO 07/08/24 09:01 2.5 mg Q12HR DINORA Administration Atorvastatin Calcium 40 mg 06/04/24 09:00 06/05/24 08:50 Atorvastatin 40 Mg Tablet PO 40 mg DAILY DINORA Administration Benzocaine 1 lozenge 06/05/24 03:06 06/05/24 03:21 Benzocaine/Menthol (*Bkc) 18 Ea Lozenge PO 1 lozenge PRN PRN Administration Sore Throat Dextrose 12.5 gm 06/03/24 18:53 Dextrose 50% 25 Gm/50 Ml Syringe IV PUSH PRN PRN Hypoglycemia Protocol Empagliflozin 25 mg 06/04/24 09:00 06/05/24 08:50 Empagliflozin 25 Mg Tablet PO 25 mg DAILY DINORA Administration Escitalopram Oxalate 20 mg 06/04/24 09:00 06/05/24 08:50 Escitalopram Oxalate 10 Mg Tablet PO 20 mg DAILY DINORA Administration Gabapentin 300 mg 06/03/24 21:00 06/04/24 21:00 Gabapentin 300 Mg Capsule PO 300 mg HS DINORA Administration Glucagon 1 mg 06/03/24 18:53 Glucagon For Inj 1 Mg Vial IM PRN PRN Hypoglycemia Protocol Glucose 15 gm 06/03/24 18:53 Glucose Oral Gel 15 Gm Of Glucse In 37.5 Gm Tube PO PRN PRN Hypoglycemia Protocol Hydrochlorothiazide 25 mg 06/04/24 09:00 Hydrochlorothiazide 25 Mg Tablet PO QAM DINORA Hydromorphone HCl 1 mg 06/03/24 15:32 Hydromorphone Hcl Inj (*Crx) 1 Mg/Ml Syr IV PUSH Q2H PRN Breakthrough Pain Rated 7-10 or NPO Hydromorphone HCl 0.5 mg 06/03/24 15:32 Hydromorphone Hcl Inj (*Crx) 1 Mg/Ml Syr IV PUSH Q2H PRN Breakthrough Pain Rated 4-6 or NPO Hydroxyzine Pamoate 50 mg 06/03/24 15:32 Hydroxyzine Pamoate 25 Mg Capsule PO Q4H PRN Itching Ibuprofen 800 mg in 200 mls @ 400 mls/hr 06/03/24 15:32 Caldolor 800 Mg/200 Ml IVPB Q6H PRN Breakthrough Pain Rated 1-3 or NPO Dextrose 1,000 mls @ 100 mls/hr 06/03/24 18:53 Dextrose 5% 1,000 Ml IVPB PRN PRN Hypoglycemia Protocol Insulin Aspart 2 - 5 units 06/04/24 08:00 06/05/24 08:52 Insulin Aspart (*Bkc) 100 Units/Ml SUB-Q Not Given TIDWM [facility] Protocol Insulin Aspart 1 - 2 units 06/03/24 21:00 06/04/24 20:50 Insulin Aspart (*Bkc) 100 Units/Ml SUB-Q Not Given HS [facility] Protocol Irbesartan 75 mg 06/04/24 09:00 06/05/24 08:51 Irbesartan 75 Mg Tablet PO 75 mg QAM DINORA Administration Isosorbide Mononitrate 60 mg 06/04/24 09:00 06/05/24 08:51 Isosorbide Mononitrate 60 Mg Tab.Er.24h PO 60 mg QAM DINORA Administration Levothyroxine Sodium 50 mcg 06/04/24 06:30 06/05/24 06:11 Levothyroxine Sodium 50 Mcg Tablet PO 50 mcg DAILY@0630 [facility] Administration Linaclotide 72 mcg 06/04/24 06:30 06/05/24 06:11 Linaclotide 72 Mcg Capsule PO 72 mcg DAILY@0630 [facility] Administration Metoprolol Succinate 25 mg 06/04/24 09:00 06/05/24 08:51 Metoprolol Succinate Ext Rel 25 Mg Tabcr PO 25 mg QAM DINORA Administration Naloxone HCl 0.1 mg 06/03/24 15:32 Naloxone Hcl 0.4 Mg/Ml Vial IV PUSH Q2M PRN Opiate Reversal Ondansetron HCl 4 mg 06/03/24 15:32 Ondansetron Inj 4 Mg/2 Ml Vial IV PUSH Q4H PRN Nausea And Vomiting Pantoprazole Sodium 40 mg 06/03/24 21:00 06/05/24 08:50 Pantoprazole 40 Mg Tablet PO 40 mg Q12HR DINORA Administration Polyethylene Glycol 17 gm 06/04/24 09:00 06/05/24 08:51 Polyethylene Glycol 3350 17 Gm Powd.Pack PO 17 gm QAM DINORA Administration Senna/Docusate Sodium 2 tab 06/03/24 17:00 06/05/24 08:50 Senna/Docusate Sodium Tablet PO 2 tab BID DINORA Administration Tramadol HCl 50 mg 06/03/24 15:32 06/04/24 08:44 Tramadol Hcl (*Crx) 50 Mg Tablet PO 50 mg Q4H PRN Administration Pain Rated 1-3 Radiology Results: ITS Impressions Head CT 06/02/24 12:41 IMPRESSION: 1. Old lacunar infarct in the right basal ganglia. Cervical Spine CT 06/02/24 12:43 IMPRESSION: 1. No fracture. 2. Mild cervical spondylosis. Knee X-Ray 06/02/24 13:01 IMPRESSION: 1. Moderate right knee osteoarthritis. Chest X-Ray 06/02/24 13:02 IMPRESSION: No focal infiltrate or effusion. Hip/Pelvis X-Ray 06/02/24 13:07 IMPRESSION: 1. Comminuted intertrochanteric fracture of proximal right femur. 2. Mild osteoarthritis of the hips. Intraoperative X-Ray 06/03/24 14:22 IMPRESSION: 1. Near-anatomic alignment post open reduction internal fixation of a comminuted intratrochanteric fracture of the proximal right femur. See procedure note for further detail. Thoracic/Lumbar Spine CT 06/04/24 13:45 IMPRESSION: 1. Oblique fracture of the right L3 pedicle. 2. Moderate thoracic spondylosis and severe lumbar spondylosis. 3. Scoliosis. 4. Subcutaneous fluid collection at L3 around the catheter tubing. 5. Mild bilateral hydronephrosis and hydroureter. Labs Labs: Laboratory Results - last 24 hr 06/04/24 06/04/24 06/04/24 11:21 16:17 20:21 WBC RBC Hgb Hct MCV MCH MCHC RDW Plt Count MPV Immature Gran % (Auto) Neut % (Auto) Lymph % (Auto) Upson % (Auto) Eos % (Auto) Baso % (Auto) Lymph # (Auto) Upson # (Auto) Eos # (Auto) Baso # (Auto) Abs Immat Gran (auto) Absolute Neuts (auto) Absolute Nucleated RBC Nucleated RBC % Sodium Potassium Chloride Carbon Dioxide Anion Gap BUN Creatinine Estim Creat Clear Calc Estimated GFR Glucose POC Capillary Glucose 184 H 194 H 141 H Calcium Total Bilirubin AST ALT Alkaline Phosphatase Total Protein Albumin 06/05/24 06/05/24 06:58 07:24 WBC 7.3 RBC 2.82 L Hgb 8.3 L Hct 26.2 L MCV 92.9 MCH 29.4 MCHC 31.7 L RDW 14.7 H Plt Count 182 MPV 9.2 Immature Gran % (Auto) 0.4 Neut % (Auto) 68.8 Lymph % (Auto) 15.7 L Upson % (Auto) 10.3 H Eos % (Auto) 4.4 Baso % (Auto) 0.4 Lymph # (Auto) 1.15 Upson # (Auto) 0.8 H Eos # (Auto) 0.3 Baso # (Auto) 0.0 Abs Immat Gran (auto) 0.03 Absolute Neuts (auto) 5.0 Absolute Nucleated RBC 0.000 Nucleated RBC % 0.0 Sodium 132 L Potassium 4.0 Chloride 105 Carbon Dioxide 20 L Anion Gap 7 BUN 36 H Creatinine 1.60 H Estim Creat Clear Calc 21 Estimated GFR 31 L Glucose 142 H POC Capillary Glucose 139 H Calcium 8.4 Total Bilirubin 0.4 AST 24 ALT 6 Alkaline Phosphatase 54 Total Protein 6.0 L Albumin 3.0 L Quality VTE Prophylaxis VTE prophylaxis: mechanical ordered
[2024-06-05 11:28] LABS: Glucose Point of Care 173 mg/dl (65-105)
[2024-06-05 11:48] VITALS: BP 98/60; PULSE 82; RESP 16; TEMP 36.6; O2SAT 98
[2024-06-05 16:28] LABS: Glucose Point of Care 202 mg/dl (65-105)
[2024-06-05] MEDS: INSULIN ASPART (*BKC) 100 UNITS/ML SUB-Q (17:36)
[2024-06-05] MEDS: BISACODYL 10 MG SUPPOSITORY RECTAL (17:36)
[2024-06-05 20:43] LABS: Glucose Point of Care 127 mg/dl (65-105)
[2024-06-05] MEDS: HYDROcodone/acetaminophen (*CRX) 7.5-325 MG TABLET 1 TAB PO (20:44)
[2024-06-05] MEDS: GABAPENTIN 300 MG CAPSULE PO (20:45)
[2024-06-05 21:04] VITALS: BP 104/57; PULSE 78; RESP 16; TEMP 36.8; O2SAT 96
[2024-06-06] MEDS: ACETAMINOPHEN 325 MG TABLET 650 MG PO ×3 (01:00→12:18)
[2024-06-06] MEDS: HYDROcodone/acetaminophen (*CRX) 5-325 MG TABLET 1 TAB PO (01:00)
[2024-06-06 05:04] VITALS: BP 113/57; PULSE 80; RESP 18; TEMP 36.5; O2SAT 95
[2024-06-06] MEDS: LEVOTHYROXINE SODIUM 50 MCG TABLET PO (05:43)
[2024-06-06] MEDS: LINACLOTIDE 72 MCG CAPSULE PO (05:47)
[2024-06-06 06:15] LABS: Basophils Percent Auto 0.4 % (0.2-1.2); Eosinophils Absolute Auto 0.4 K/mm3 (0-0.3); Eosinophils Percent Auto 5.5 % (0-4.4); Hematocrit 25.2 % (37.0-47.0); Hemoglobin 8.1 g/dL (12.0-15.0); Immature Granulocyte Absolute 0.04 K/mm3 (0.00-0.031); Immature Granulocyte Percent A 0.6 % (0-0.5); Lymphocytes Absolute Auto 1.12 K/mm3 (0.9-3.2); Lymphocytes Percent Auto 16.7 % (18.3-44.2); Mean Corpuscular HGB Conc 32.1 g/dl (32-36); Mean Corpuscular Hemoglobin 30.1 pg (26-34); Mean Corpuscular Volume 93.7 fl (80-100); Mean Platelet Volume 9.4 fl (7.4-10.4); Monocytes Absolute Auto 0.7 K/mm3 (0.1-0.6); Monocytes Percent Auto 10.3 % (2.6-8.5); Neutrophils Absolute Auto 4.4 K/mm3 (1.3-6.7); Neutrophils Percent Auto 66.5 % (45.5-73.1); Platelet Count Result 206 k/mm3 (150-375); Red Blood Count 2.69 M/mm3 (4.2-5.4); Red Cell Distribution Width 14.6 % (11.5-14.5); White Blood Count 6.7 K/mm3 (4.5-10.0)
[2024-06-06 06:29] LABS: Alanine Aminotransferase 6 U/L (6-35); Albumin Level 2.9 g/dL (3.5-5.1); Alkaline Phosphatase 57 U/L (38-126); Anion Gap 8 mmol/L (4-12); Aspartate Amino Transferase 21 U/L (14-36); Bilirubin,Total 0.6 mg/dL (0.2-1.3); Blood Urea Nitrogen 33 mg/dL (7-17); Calcium 8.7 mg/dL (8.4-10.2); Carbon Dioxide 19 mmol/L (22-30); Chloride 108 mmol/L (98-107); Estimated CRCL calculation 28 ml/min; Estimated Glomerular Filt Rate 36; Glucose 118 mg/dL (65-110); Potassium 4.2 mmol/L (3.4-5.0); Sodium 135 mmol/L (137-145)
[2024-06-06 08:25] LABS: Glucose Point of Care 143 mg/dl (65-105)
[2024-06-06] MEDS: IBUPROFEN IV 800 MG/200 ML 800 MG/200 ML BAG 400 MG IVPB (09:15)
[2024-06-06] MEDS: HYDROcodone/acetaminophen (*CRX) 7.5-325 MG TABLET 1 TAB PO (09:16)
[2024-06-06] MEDS: ATORVASTATIN 40 MG TABLET PO (09:16)
[2024-06-06] MEDS: ISOSORBIDE MONONITRATE 60 MG TAB.ER.24H PO (09:16)
[2024-06-06] MEDS: IRBESARTAN 75 MG TABLET PO (09:16)
[2024-06-06] MEDS: ESCITALOPRAM OXALATE 10 MG TABLET 20 MG PO (09:16)
[2024-06-06] MEDS: APIXABAN 2.5 MG TABLET PO (09:17)
[2024-06-06] MEDS: PANTOPRAZOLE 40 MG TABLET PO (09:17)
[2024-06-06] MEDS: EMPAGLIFLOZIN 25 MG TABLET PO (09:17)
[2024-06-06 09:23] VITALS: PULSE 88
[2024-06-06] MEDS: METOPROLOL SUCCINATE EXT REL 25 MG TABCR PO (09:23)
--- NOTE | 2024-06-06 10:36 | PM.DS ---
DS: Admitting Diagnosis Discharge Date 06/06/2024 Admitting Diagnosis Falll, hip injury DS: Discharge Diagnosis Discharge Diagnosis (1) Intertrochanteric fracture of right hip: Code(s): S72.141A - Displaced intertrochanteric fracture of right femur, initial encounter for closed fracture Status: Acute (2) Ground-level fall: Code(s): W18.30XA - Fall on same level, unspecified, initial encounter Status: Acute (3) Chronic anticoagulation: Code(s): Z79.01 - jail (current) use of anticoagulants Status: Acute (4) Hypertension: Code(s): I10 - Essential (primary) hypertension Status: Chronic (5) Type 2 diabetes mellitus without complication, with long-term current use of insulin: Code(s): E11.9 - Type 2 diabetes mellitus without complications; Z79.4 - jail (current) use of insulin Status: Acute (6) Paroxysmal atrial fibrillation: Code(s): I48.0 - Paroxysmal atrial fibrillation Status: Chronic DS: Summary Hospital Course Hospital Course: Patient tripped over her extended recliner and fell, hitting her head on the fireplace and landing on her right hip. Hip x-ray shown comminuted intertrochanteric fracture of proximal right femur, mild osteoarthritis of the hips. Ortho consulted and took patient to the OR 06/03/24 for IT nailing of the right hip. Area on left back protruding, no external drainage. Pain pump was changed out last week with draining of area on back twice and blood patch placed at [facility]. Spoke to patient pain management Dr Ramirez office, Dr. Ramirez does not feel anything needs done acutely. Patient to see Dr. Ramirez on 06/15 at 9:30 AM. Patient was having constipation, bowel regimen given and patient had 2 bowel movements. Patient to go to the [facility] for rehab this afternoon. Status at Discharge Functional status at discharge: uses cane/walker Overall status at discharge: patient is not back to baseline Time Spent with Patient Time attestation: Total time spent providing and/or coordinating discharge services: Time spent: Greater than 30 minutes Exam Const: General: no acute distress and uncomfortable Other: Pain is a 4 in right hip, constant, and aching. Eyes: Sclera: sclerae normal Resp: Effort & Inspection: normal respiratory effort Auscultation: clear to auscultation bilaterally Cardio: Rate: regular rate Rhythm: regular rhythm GI: GI Palp: Yes Soft to palpation Auscultation: normal bowel sounds : Other: Ileal conduit in place with yellow urine pink stoma. Skin: Other: OR dressing to right hip clean dry and intact, pain pump to mid left back which is chronic- area is raised and bulging. Pain pump incision approximated with glue in left abdomen. Neuro: Other: Normal speech Extrem: General: normal to inspection Psych: Affect: normal affect DS: Data Data Completed and Pending Labs on day of discharge: Labs from last 24 hours 06/06/24 06/06/24 06/05/24 07:57 05:34 20:39 WBC 6.7 RBC 2.69 L Hgb 8.1 L Hct 25.2 L MCV 93.7 MCH 30.1 MCHC 32.1 RDW 14.6 H Plt Count 206 MPV 9.4 Immature Gran % (Auto) 0.6 H Neut % (Auto) 66.5 Lymph % (Auto) 16.7 L Cavalier % (Auto) 10.3 H Eos % (Auto) 5.5 H Baso % (Auto) 0.4 Lymph # (Auto) 1.12 Cavalier # (Auto) 0.7 H Eos # (Auto) 0.4 H Baso # (Auto) 0.0 Abs Immat Gran (auto) 0.04 H Absolute Neuts (auto) 4.4 Absolute Nucleated RBC 0.000 Nucleated RBC % 0.0 Sodium 135 L Potassium 4.2 Chloride 108 H Carbon Dioxide 19 L Anion Gap 8 BUN 33 H Creatinine 1.40 H Estim Creat Clear Calc 28 Estimated GFR 36 L Glucose 118 H POC Capillary Glucose 143 H 127 H Calcium 8.7 Total Bilirubin 0.6 AST 21 ALT 6 Alkaline Phosphatase 57 Total Protein 6.0 L Albumin 2.9 L 06/05/24 06/05/24 16:24 11:25 WBC RBC Hgb Hct MCV MCH MCHC RDW Plt Count MPV Immature Gran % (Auto) Neut % (Auto) Lymph % (Auto) Cavalier % (Auto) Eos % (Auto) Baso % (Auto) Lymph # (Auto) [place]alier # (Auto) Eos # (Auto) Baso # (Auto) Abs Immat Gran (auto) Absolute Neuts (auto) Absolute Nucleated RBC Nucleated RBC % Sodium Potassium Chloride Carbon Dioxide Anion Gap BUN Creatinine Estim Creat Clear Calc Estimated GFR Glucose POC Capillary Glucose 202 H 173 H Calcium Total Bilirubin AST ALT Alkaline Phosphatase Total Protein Albumin Discharge Plan Discharge Attending physician on discharge: Rene Mcwilliams Consulting providers: Marcel Davila; Karly Castillo Discharging Clinician: Praveena Jj Anticipated Discharge Date/Time: 06/06/24 14:00 Patient Disposition: [facility] Activity: may shower Diet: diabetic Discharge Instructions: Follow up in [address] Davila. May shower Dressing to remain in place for 7 days Discuss with primary if they would like to restart Amlodipine and Hydrochlorothiazide. Patient Instructions: Apixaban (By mouth), Constipation (DC) Follow-up/Referrals: Indra Ramirez Pain Management [Other] - 06/15/24 9:30 am (Pain management Jasiel Moran. Call if need to reschedule if still in rehab. ) Marcel Davila MD [Physician] - 2 Weeks Tashi Christianson MD [Primary Care Provider] - 3 Weeks Discharge Medications: New atorvastatin 40 mg Tablet 40 mg PO HS Qty: 30 0RF acetaminophen 325 mg Tablet 650 mg PO Q6HR Qty: 60 0RF Eliquis 2.5 mg Tablet 2.5 mg PO Q12HR Qty: 64 0RF sennosides-docusate sodium [Senokot-S] 8.6-50 mg Tablet 2 tab-cap PO BID Qty: 28 0RF hydrocodone-acetaminophen 5-325 mg Tablet 1 tablet PO Q4H PRN (Reason: Pain Rated 4-6) Qty: 20 0RF Continued irbesartan 75 mg tablet 1 tablet DAILY gabapentin 300 mg capsule 300 mg PO QHS Qty: 30 2RF levothyroxine 50 mcg capsule 50 mcg PO DAILY Qty: 1 0RF nitroglycerin 0.4 mg Tablet, Sublingual 0.4 mg sublingual PRN PRN (Reason: Chest Pain) Rx Instructions: Place 1 tablet (0.4mg) under the tongue every 5 minutes for chest pain with a max dose of 3 doses. metoprolol succinate 25 mg tablet extended release 24 hr 25 mg PO DAILY PreserVision AREDS-2 1 tab-cap PO DAILY ondansetron 4 mg tablet,disintegrating 4 mg PO Q8H PRN (Reason: nausea and vomiting) Qty: 14 0RF metformin 500 mg tablet extended release 24 hr 1,000 mg PO DAILY escitalopram oxalate 20 mg tablet 20 mg PO DAILY Jardiance 25 mg tablet 25 mg PO DAILY triamcinolone acetonide 0.1 % cream 1 applic TOPICAL DAILY PRN (Reason: Pain) Linzess 72 mcg capsule 72 mcg PO DAILY trolamine salicylate [Analgesic Creme] 10 % cream 1 applic topical TID PRN (Reason: muscle pain) Qty: 85 0RF (DME) pen needle, diabetic [Novofine 32] 32 gauge x 1/4 needle See Rx Instructions .ROUTE .MEDSUPPLY Qty: 200 3RF Rx Instructions: inject twice daily isosorbide mononitrate 60 mg tablet extended release 24 hr 60 mg PO DAILY Qty: 7 0RF potassium chloride 8 mEq capsule, extended release See Rx Instructions .ROUTE .COMPLEX Qty: 90 2RF Dose Instruction: TAKE 1 CAPSULE BY MOUTH DAILY Rx Instructions: TAKE 1 CAPSULE BY MOUTH DAILY omeprazole 40 mg capsule,delayed release(DR/EC) 40 mg PO DAILY 30 Days Qty: 90 3RF dulaglutide 1.5 mg/0.5 mL pen injector 1.5 mg subcut WEEKLY Qty: 6 1RF Rx Instructions: every saturday glipizide 5 mg tablet 5 mg PO DAILY Qty: 90 2RF Rx Instructions: TAKE 1 TABLET DAILY Discontinued Eliquis 5 mg tablet 5 mg PO BID hydrochlorothiazide 25 mg tablet 25 mg PO DAILY Qty: 90 3RF amlodipine-atorvastatin 10-40 mg tablet 1 tablet PO DAILY Qty: 90 2RF Date of admission: 06/02/24 14:20 Primary Care Provider: Tashi Christianson Admitting Provider: Seb Dalton Attending physician on admission: Ursula Ybarra Condition: Stable Hospitalist MIPS Heart Failure (Exclusion) Patient has history of Heart Transplant or Left Ventricular Assistive Device?: No IF YES, STOP HERE Heart Failure (Qualifier) Patient has current or prior documentation of LVEF less than or equal to 40%, or mod/servere depressed LVSF?: No IF NO, STOP HERE
[2024-06-06 11:26] LABS: Glucose Point of Care 162 mg/dl (65-105)
== END 2024-06-06 14:05 | DRG 482 ==
LOC: ANHED 13:57 → ANH3MEDSUR 14:45
PROVIDERS: Nurse Practitioner Acute Care; Orthopaedic Surgery; Physician Assistant; Admitting Provider General Practice; Emergency Provider Emergency Medicine; PCP Family Medicine; Visit Provider Nurse Practitioner Family
PROC: 0QS634Z Reposition Right Upper Femur with Internal Fixation Device, Percutaneous Approach (ICD-10-PCS; CPT 27245; principal; 2024-06-03 13:00)
DX: S72.141A Displaced intertrochanteric fracture of right femur, initial encounter for closed fracture (principal); N18.30 Chronic kidney disease, stage 3 unspecified; N18.9 Chronic kidney disease, unspecified; I12.9 Hypertensive chronic kidney disease with stage 1 through stage 4 chronic kidney disease, or unspecified chronic kidney disease; I25.10 Atherosclerotic heart disease of native coronary artery without angina pectoris; I48.0 Paroxysmal atrial fibrillation; E11.22 Type 2 diabetes mellitus with diabetic chronic kidney disease; E03.9 Hypothyroidism, unspecified; E78.5 Hyperlipidemia, unspecified; K58.9 Irritable bowel syndrome, unspecified; K57.30 Diverticulosis of large intestine without perforation or abscess without bleeding; K59.09 Other constipation; K21.9 Gastro-esophageal reflux disease without esophagitis; M19.90 Unspecified osteoarthritis, unspecified site; R22.2 Localized swelling, mass and lump, trunk; G89.29 Other chronic pain; H35.30 Unspecified macular degeneration; H81.09 Meniere's disease, unspecified ear; H54.7 Unspecified visual loss; F32.A Depression, unspecified; F41.9 Anxiety disorder, unspecified; W18.09XA Striking against other object with subsequent fall, initial encounter; Z96.89 Presence of other specified functional implants; Z85.51 Personal history of malignant neoplasm of bladder; Z79.01 Long term (current) use of anticoagulants; Z86.718 Personal history of other venous thrombosis and embolism; Z86.73 Personal history of transient ischemic attack (TIA), and cerebral infarction without residual deficits; Z95.5 Presence of coronary angioplasty implant and graft; Z87.891 Personal history of nicotine dependence
CPT/HCPCS: 36415; 64999; 70450; 71045; 72125; 72128; 72131; 73502; 73560; 74018; 80048; 80053; 82948; 83036; 83735; 84439; 84443; 84480; 85025; 85027; 93005; 96374; 97110; 97116; 97161; 97165; 97530; 97535; 99199; 99285; A9270; C1713; J0690; J1741; J1815; J2270; J2371; J2405; J2704; J3010; J7120

== ENCOUNTER 2024-06-24 13:09 | Outpatient (CLI) | payer MEDICARE, OTHER, SELFPAY ==
--- NOTE | ~2024-06-24 | XR_ITS ---
XR hip RT 2V w AP pelvis Ordering provider: Marcel Davila MD History: . S72.141A - Displaced intertrochanteric fracture of right ... . Comparison: None. FINDINGS: BONES: No acute fracture or dislocation. Fixation of the right femoral neck by libertad and screw is noted with the fracture is seen in the intertrochanteric area. HIP JOINT SPACES: Bilateral hip moderate osteoarthritic changes. SACROILIAC JOINT SPACES/LUMBAR SPINE: The sacroiliac joint spaces shows bilateral sacroiliacs.. Mild degenerative changes of the visualized lower lumbar spine. PUBIC SYMPHYSIS: Pubic symphysitis. SOFT TISSUES: Normal. Postoperative changes. Left iliac area device. IMPRESSION: Fracture of the right intertrochanteric with postoperative changes and fixation. Reviewed, dictated and finalized at location A. BING INSTALLER IMPRESSION: Fracture of the right intertrochanteric with postoperative changes and fixation .
== END 2024-06-24 13:10 | disposition home or self-care (01) ==
PROVIDERS: PCP Family Medicine; Visit Provider Orthopaedic Surgery
DX: S72.141A Displaced intertrochanteric fracture of right femur, initial encounter for closed fracture (principal); X58.XXXA Exposure to other specified factors, initial encounter
CPT/HCPCS: 73502

== ENCOUNTER 2024-08-23 08:14 | Emergency (ER) | payer MEDICARE, OTHER, SELFPAY ==
--- NOTE | ~2024-08-23 | CT_ITS ---
EXAMINATION: CT brain wo con DATE: 08/23/2024 09:04 INDICATION: Head injury TECHNIQUE: Computed tomography (CT) of the head was performed without intravenous contrast. The mA wa s adjusted according to patient size. Iterative reconstruction technique was employed. Exam dose: 60 5.33 mGy-cm total exam DLP. COMPARISON: 06/02/2024 CT brain FINDINGS: There are prominent bilateral vertebral artery calcifications in addition to bilateral ogden tid siphon internal carotid artery calcifications. There is nonspecific diminished attenuation the cerebral white matter, likely due to chronic small ve ssel ischemic changes of the cerebral white matter. No intracranial mass lesion or hemorrhage or recent cerebrovascular accident. No midline shift or mas s effect. Right posterior temporal bone craniotomy is again noted. No recent skull fracture. Mastoid air cells and paranasal sinuses are normally developed and aerated. IMPRESSION: No skull fracture or acute intracranial finding or significant change since 05/2024 Reviewed, dictated and finalized at [facility] Reviewed, dictated and finalized at [facility]. 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
--- NOTE | ~2024-08-23 | XR_ITS ---
XR hip RT 2V w AP pelvis DATE: 08/23/2024 08:54 INDICATION: Right hip pain following injury TECHNIQUE: AP pelvis. AP and lateral views of right hip. COMPARISON: 08/13/2024 pelvis and right hip FINDINGS: Intramedullary nail and interlocking compression screw are again noted in the proximal righ t femur for internal fixation of an intertrochanteric hip fracture. 2 suture anchors are again noted at the greater trochanter. However, since 08/13/2024 there is a new linear oblique fracture through the proximal femoral shaft, be ginning proximally in the lateral subtrochanteric area and extending through the medial proximal femo ral cortex beyond up to 4.5 cm distal to the inferior aspect of the right femoral intramedullary nail . There is approximately one cortical width lateral displacement of the distal femoral shaft fracture fragment. Osteopenia. Postoperative changes of the pelvis. IMPRESSION: New linear mildly laterally displaced oblique fracture through the proximal right femoral shaft since 08/2020 Reviewed, dictated and finalized at [facility]. TICS NURSE IMPRESSION: New linear mildly laterally displaced oblique fracture through the proximal rig ht femoral shaft since 08/2020
--- NOTE | ~2024-08-23 | XR_ITS ---
XR knee RT 3V DATE: 08/23/2024 09:58 INDICATION: Fall. Right knee pain. TECHNIQUE: 5 views COMPARISON: None FINDINGS: There is prominent diffuse osteopenia. No fracture, dislocation, periosteal reaction or bone destruction is detected. Prominent chondrocalcinosis. IMPRESSION: Osteopenia Chondrocalcinosis No fracture or dislocation is evident Reviewed, dictated and finalized at [facility]. UNDERWRITER
--- NOTE | 2024-08-23 08:18 | ECG_ITS ---
Test Date: 2024-08-23 08:22:47 Measurements Intervals [place] Rate: 77 P: 56 ME: 161 QRS: 4 QRSD: 120 T: 42 QT: 293 QTc: 333 Interpretive Statements SINUS RHYTHM MODERATE INTRAVENTRICULAR CONDUCTION DELAY [110+ ms QRS DURATION] NONSPECIFIC ST & T-WAVE ABNORMALITY ABNORMAL ECG Compared to ECG 06/02/2024 16:20:47 T-wave abnormality now present Electronically Signed On 08-23-2024 08:42:20 [employer] ADMINISTRATOR by Jarod Engle M.D.
[2024-08-23 08:20] VITALS: BP 165/75; PULSE 75; RESP 16; TEMP 37.4; O2SAT 98
[2024-08-23] MEDS: MORPHINE SULFATE (*CRX) 4 MG/ML INJ IV PUSH ×2 (08:44→10:44)
[2024-08-23] MEDS: ONDANSETRON INJ 4 MG/2 ML VIAL (08:50)
[2024-08-23 09:24] VITALS: BP 149/73; PULSE 75; RESP 16; O2SAT 97
--- NOTE | 2024-08-23 10:20 | ED_ITS ---
HPI - General Adult General Chief complaint: Fall Stated complaint: fall-right hip Time Seen by Provider: 08/23/24 08:18 History of Present Illness HPI narrative: Patient is an 83-year-old female who presents ER after a fall. Patient was in bed and fell out of bed. She did strike her head though she does remember it. She denies loss of consciousness. She had sudden onset pain to her right hip. Recently underwent intramedullary nail for intertrochanteric fracture. No numbness or tingling to the leg. Anticoagulated on Eliquis 2.5 mg twice a day. Related Data Home Medications ?Medication ?Instructions ?Recorded ?Confirmed ?Last Taken ?Type PreserVision AREDS-2 1 tab-cap PO DAILY 08/16/19 08/13/24 09/19/21 History metoprolol succinate 25 mg 25 mg PO DAILY 08/16/19 08/13/24 09/19/21 History tablet,extended release 24 hr nitroglycerin 0.4 mg sublingual 0.4 mg sublingual PRN PRN Chest 08/16/19 08/13/24 Unknown History tablet Pain triamcinolone acetonide 0.1 % 1 applic topical DAILY PRN Pain 08/31/21 08/13/24 09/19/21 History topical cream irbesartan 75 mg tablet 1 tablet DAILY 02/16/22 08/13/24 Unknown History linaclotide 72 mcg capsule 72 mcg PO DAILY 08/15/22 08/13/24 Unknown History (Linzess) empagliflozin 25 mg tablet 25 mg PO DAILY 06/02/24 08/13/24 Unknown History (Jardiance) metformin 500 mg tablet,extended 1,000 mg PO DAILY 06/02/24 08/13/24 Unknown History release 24 hr apixaban 5 mg tablet (Eliquis) 2.5 mg PO Q12HR 06/25/24 08/13/24 Unknown History ibuprofen 200 mg tablet 200 mg PO Q6H PRN 07/23/24 08/13/24 Unknown History Allergies Allergy/AdvReac Type Severity Reaction Status Date / Time dimenhydrinate Allergy Severe THROAT Verified 08/13/24 11:53 SWELLING iodine Allergy Intermediate Rash Verified 08/13/24 11:53 Contrast Media Allergy Intermediate RASH Uncoded 08/13/24 11:53 Review of Systems Review of Systems: All systems reviewed & are unremarkable except as noted in HPI and below Constitutional: Constitutional: Reports no additional constitutional c omplaints Cardiovascular: Cardiovascular: Reports no additional cardiovascular complaints Respiratory: Respiratory: Reports no additional respiratory complaints Musculoskeletal: Musculoskeletal: Reports arthralgias, Denies joint swelling and Reports muscle cramps PMF Past Medical History Medical History Constipation due to opioid therapy Hypothyroidism Chronic anticoagulation Type 2 diabetes mellitus Chronic pain Chronic kidney disease, stage 3 Irritable bowel syndrome Transient ischemic attack Hypertension Deep venous thrombosis Gastroesophageal reflux disease Coronary artery disease Paroxysmal atrial fibrillation Blind Macular degeneration Chronic right hip pain History of blood transfusion Hepatitis A Anemia Skin cancer Anxiety Depression Arthritis Bladder cancer Bowel obstruction History of rectal polyps Diverticulitis Hyperlipidemia Menieres disease Seasonal allergies Surgical History Surgical History Greater trochanteric bursitis of right hip surgical re-debridement January 2020 History of coronary artery stent placement History of foot surgery Left History of hip surgery Right hip abductor repair History of coronary artery stent placement H/O local excision of skin lesion History of brain surgery History of back surgery History of ileal conduit History of hysterectomy History of bladder surgery History of appendectomy History of hernia repair History of angioplasty History of cardiac catheterization History of tonsillectomy History of cataract surgery Family History Family History Mother Diabetes mellitus Hypertension Family history of coronary artery disease Sibling Diabetes mellitus Hypertension Family history of malignant neoplasm Carcinoma of colon Family history of Alzheimer's disease Family history of malignant neoplasm of bone Family history of coronary artery disease Social History Social History (Updated 08/13/24 @ 13:40 by Miko Carmen [facility]) Social History: Surrogate medical decision maker: Samri Escobar, spouse. Code status: Smoking packs per day: 1 Smoking cigarettes per day: 20.0 Years smoked: 15 Smoking pack-years: 15.00 Smoking status: Former smoker Tobacco type: cigarettes Second hand tobacco smoke exposure: No Smoking end date: 05/12/00 Alcohol intake: current Drinks per week: 0 Alcohol use details: rarely Substance use: never Substance use type: opiates Other substance usage details: morphine pain pump placed about 2 months ago Current Housing: Decline to Answer Concerned About Future Housing: Decline to Answer Difficulty Paying Gas/Electric Bills: Decline to Answer Difficulty Paying for Meds: Decline to Answer Currently Unemployed: Decline to Answer Education: Decline to Answer Difficulty w/ Childcare or Family Care: Decline to Answer Living arrangements: with family Additional living arrangements comments: Occupation/Education: retired Spiritual care concerns: No Exam Narrative: GENERAL: Well-appearing, well-nourished, and in no acute distress. HEAD: Normocephalic, atraumatic. ENT: Mucous membranes moist. Abrasion to nose. CHEST: Clear to auscultation. No respiratory distress. HEART: Regular rate and rhythm. Normal peripheral pulses. EXTREMITIES: Limited ROM at right hip 2/2 pain. Normal ROM of the right knee. No issues with LLE. SKIN: Warm, dry, no rash. NEURO: Alert and oriented x3. PSYCH: Normal mood and affect. Course Course Emergency Course: Dr. Rosenberg recommends transfer for revision. Pt requests Andre. Accepted by Dr. Goyal at 1033. Vital Signs Vital signs: Vital Signs Temperature 99.3 F 08/23/24 08:20 Pulse Rate 75 08/23/24 08:20 Respiratory Rate 16 08/23/24 08:20 Blood Pressure 165/75 H 08/23/24 08:20 Pulse Oximetry 98 08/23/24 08:20 Oxygen Delivery Room Air 08/23/24 08:20 Temperature 99.3 F 08/23/24 08:20 Pulse Rate 75 08/23/24 09:24 Respiratory Rate 16 08/23/24 09:24 Blood Pressure 149/73 H 08/23/24 09:24 Pulse Oximetry 97 08/23/24 09:24 Oxygen Delivery Room Air 08/23/24 08:20 Medical Decision Making Vital Signs Vital Signs: Vital Signs Temperature 99.3 F 08/23/24 08:20 Pulse Rate 75 08/23/24 08:20 Respiratory Rate 16 08/23/24 08:20 Blood Pressure 165/75 H 08/23/24 08:20 Pulse Oximetry 98 08/23/24 08:20 Oxygen Delivery Room Air 08/23/24 08:20 Temperature 99.3 F 08/23/24 08:20 Pulse Rate 75 08/23/24 09:24 Respiratory Rate 16 08/23/24 09:24 Blood Pressure 149/73 H 08/23/24 09:24 Pulse Oximetry 97 08/23/24 09:24 Oxygen Delivery Room Air 08/23/24 08:20 Imaging Data Radiologist's impression: ITS Impressions Hip/Pelvis X-Ray 08/23/24 08:57 IMPRESSION: New linear mildly laterally displaced oblique fracture through the proximal right femoral shaft since 08/[address] 08/23/24 09:14 IMPRESSION: No skull fracture or acute intracranial finding or significant change since 05/2024 Knee X-Ray 08/23/24 10:04 IMPRESSION: Osteopenia Chondrocalcinosis No fracture or dislocation is evident Discharge Plan Discharge Clinical Impression: Femur fracture, right Patient Disposition: Acute Care Hospital Condition: Stable Patient Language: [place] Citizen Prescriptions: No Action irbesartan 75 mg tablet 1 tablet DAILY sennosides-docusate sodium [Senokot-S] 8.6-50 mg tablet 2 tab-cap PO BID 30 Days Qty: 120 1RF dulaglutide 0.75 mg/0.5 mL pen injector 0.75 mg subcut WEEKLY Qty: 2 3RF Rx Instructions: every saturday Eliquis 5 mg tablet 2.5 mg PO Q12HR ibuprofen 200 mg tablet 200 mg PO Q6H PRN gabapentin 300 mg capsule 300 mg PO QHS Qty: 30 2RF levothyroxine 50 mcg capsule 50 mcg PO DAILY Qty: 1 0RF nitroglycerin 0.4 mg Tablet, Sublingual 0.4 mg sublingual PRN PRN (Reason: Chest Pain) Rx Instructions: Place 1 tablet (0.4mg) under the tongue every 5 minutes for chest pain with a max dose of 3 doses. metoprolol succinate 25 mg tablet extended release 24 hr 25 mg PO DAILY PreserVision AREDS-2 1 tab-cap PO DAILY metformin 500 mg tablet extended release 24 hr 1,000 mg PO DAILY Jardiance 25 mg tablet 25 mg PO DAILY atorvastatin 40 mg Tablet 40 mg PO HS Qty: 30 0RF acetaminophen 325 mg Tablet 650 mg PO Q6HR Qty: 60 0RF hydrocodone-acetaminophen 5-325 mg Tablet 1 tablet PO Q4H PRN (Reason: Pain Rated 4-6) Qty: 20 0RF triamcinolone acetonide 0.1 % cream 1 applic TOPICAL DAILY PRN (Reason: Pain) Linzess 72 mcg capsule 72 mcg PO DAILY trolamine salicylate [Analgesic Creme] 10 % cream 1 applic topical TID PRN (Reason: muscle pain) Qty: 85 0RF (DME) pen needle, diabetic [Novofine 32] 32 gauge x 1/4 needle See Rx Instructions .ROUTE .MEDSUPPLY Qty: 200 3RF Rx Instructions: inject twice daily isosorbide mononitrate 60 mg tablet extended release 24 hr 60 mg PO DAILY Qty: 7 0RF glipizide 5 mg tablet 5 mg PO DAILY Qty: 90 2RF Rx Instructions: TAKE 1 TABLET DAILY omeprazole 40 mg capsule,delayed release(DR/EC) 40 mg PO DAILY 30 Days Qty: 90 3RF ondansetron 4 mg tablet,disintegrating 4 mg PO Q8H PRN (Reason: nausea and vomiting) Qty: 14 0RF potassium chloride 8 mEq capsule, extended release See Rx Instructions .ROUTE .COMPLEX Qty: 90 3RF Dose Instruction: TAKE 1 CAPSULE BY MOUTH DAILY Rx Instructions: TAKE 1 CAPSULE BY MOUTH DAILY escitalopram oxalate 20 mg tablet 20 mg PO DAILY Qty: 90 0RF losartan 25 mg Tablet 25 mg PO DAILY 30 Days Qty: 30 0RF Follow-up/Referrals: Tashi Christianson MD [Primary Care Provider] -
[2024-08-23 10:42] VITALS: BP 139/68; PULSE 76; RESP 16; O2SAT 98
--- NOTE | 2024-08-23 13:12 | PC.NURSE ---
Report given to critical [facility] hospital. All questions answered.
[2024-08-23] MEDS: MORPHINE SULFATE (*CRX) 4 MG/ML INJ 2 MG IV PUSH (13:21)
[2024-08-23 13:22] VITALS: BP 132/95; PULSE 80; RESP 14; O2SAT 95
== END 2024-08-23 13:27 | disposition short-term general hospital (02) ==
PROVIDERS: Emergency Provider Emergency Medicine; PCP Family Medicine
DX: S72.331A Displaced oblique fracture of shaft of right femur, initial encounter for closed fracture (principal); W06.XXXA Fall from bed, initial encounter; Z79.01 Long term (current) use of anticoagulants; Z87.891 Personal history of nicotine dependence; Z79.891 Long term (current) use of opiate analgesic
CPT/HCPCS: 70450; 73502; 73562; 93005; 96374; 96375; 96376; 99285; J2270; J2405

== ENCOUNTER 2024-09-23 11:42 | Inpatient (IN) | payer MEDICARE, OTHER, SELFPAY ==
[2024-09-23] VITALS (9 sets, daily range): BP systolic 100–123; BP diastolic 50–66; PULSE 79–90; RESP 16–20; TEMP 36.4–36.9; O2SAT 83–100; BMI 25.4
--- NOTE | ~2024-09-23 | CT_ITS ---
Non-contrast Head CT History: Weakness COMPARISON: 08/23/2024 Technique: Axial non-contrast imaging of the brain was performed. Dose reduction technique was used on this scan by utilizing automated exposure control and iterative reconstruction technique. The dose -length product (DLP) was 681.00 mGy-cm. Findings: There is no evidence of intracranial hemorrhage, mass lesion, or acute infarct. Brain par enchyma appears normal. The ventricles and subarachnoid spaces are normal in size. The calvarium ap pears normal. The visualized paranasal sinuses and mastoid air cells are clear. Impression: No significant abnormality seen. Reviewed, dictated and finalized at [facility]. O DESPATCHER Impression: No significant abnormality seen.
--- NOTE | ~2024-09-23 | XR_ITS ---
Clinical Indication: Weakness PA and lateral views of the chest: Comparison: 06/02/2024 Findings: The lungs are clear, without evidence of focal consolidation or pleural effusion. Cardiome diastinal silhouette is within normal limits. Bones and soft tissues are unremarkable. Impression: Normal chest. Reviewed, dictated and finalized at [facility]. EM ADMIN Impression: Normal chest.
--- NOTE | 2024-09-23 12:04 | ECG_ITS ---
Test Date: 2024-09-23 13:31:18 Measurements Intervals [place] Rate: 75 P: 44 [place]: 184 QRS: 3 QRSD: 114 T: 48 QT: 384 QTc: 429 Interpretive Statements SINUS RHYTHM INTRAVENTRICULAR CONDUCTION DELAY MINIMAL Q WAVES- HIGH LATERAL LEADS BASELINE ARTIFACT- I, II, III, AVR, AVL ,AVF, V1-V6 BORDERLINE ECG Compared to ECG 08/23/2024 08:22:47 NO SIGNIFICANT CHANGE Electronically Signed On 09-23-2024 14:06:01 TOTER by Alex Singh D.O.
--- OUTSIDE RECORDS SUMMARY | 2024-09-23 12:20 | XMS_ITS | Clinical Summary ---
Author Organization [facility] al Address [address] [place] [address] Care Team Providers Care Fur Tanner Name Role Phone Tashi Christianson MD Primary Care Provider Pedro Roy NP Unavailable [phone] Allergies Active Allergy Reactions Criticality Noted Date Comments Iodinated Contrast Media Hives Medium 04/16/2018 Dimenhydrinate Other (See comments) Low 04/22/2007 Unclassified Drug Rash Medium 07/18/2021 Deep Blue Essential Oil Pain Cream Medications amlodipine-atorvas tatin (CADUET) 10-40 mg per tablet Take 1 tablet by mouth daily Active levothyroxine sodium (TIROSINT) 50 mcg capsule Take 1 capsule (50 mcg total) by mouth daily Active vit A/vit C/vit E/zinc/copper (PRESERVISION AREDS ORAL) Take by mouth. Act robles nitroglycerin (NITROSTAT) 0.4 mg SL tabletIndications: acute episode of anginal pain Place 1 tablet (0.4 mg total) under the tongue every 5 (five) minutes as needed for chest pain Max 3 doses. 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 (HCC) Take 1 tablet (60 mg total) by mouth daily 90 tablet 3 07/21/20 21 Active Jardiance 25 mg tablet TAKE 1 TABLET DAILY 30 tablet 05/04/20 22 Active Trulicity 1.5 mg/0.5 mL pen injector Inject 0.5 mL (1.5 mg total) under the skin every 7 days Saturday10/08/19 23 Active gabapentin (NEURONTIN) 300 mg capsule Take 1 capsule (300 mg total) by mouth daily Active potassium chloride ER 8 mEq CR capsule Take 1 tablet/capsule (8 mEq total) by mouth daily Active metoprolol XL (TOPROL-XL) 25 mg extended release tablet TAKE ONE AND ONE-HALF TABLETS DAILY 135 tablet 3 05/22/20 23 Active escitalopram (LEXAPRO) 20 mg tablet Take 1 tablet (20 mg total) by mouth daily 03/16/20 24 Active linaCLOtide (LINZESS) 145 mcg capsule Take 72 mcg by mouth daily Active ondansetron ODT (ZOFRAN-ODT) 4 mg disintegrating tablet Take 1 tablet (4 mg total) by mouth every 8 (eight) hours as needed for nausea or vomiting 20 tablet 05/18/20 24 Active Mitigo, PF, 10 mg/mL solution 0 06/23/20 24 Active omeprazole (PriLOSEC) 40 mg capsule 06/24/20 24 Active acetaminophen (TYLENOL) 325 mg tabletIndications: Pain Take 2 tablets (650 mg total) by mouth every 6 (six) hours as needed for pain 0 08/27/19 25 Active methocarbamoL (ROBAXIN) 500 mg tablet Take 1 tablet (500 mg total) by mouth 3 (three) times a day as needed for muscle spasms 0 08/27/19 25 Active senna-docusate (PERICOLACE) 8.6-50 mgIndications:cons tipation Take 2 tablets by mouth 2 (two) times a day as needed for constipation 08/27/19 25 Active oxyCODONE (ROXICODONE) 5 mg immediate release tabletIndications: Pain Take 1 tablet (5 mg total) by mouth every 4 (four) hours as needed for pain 12 tablet 08/27/19 25 Active polyethylene glycol (MIRALAX) 17 gram/dose bulk powderIndications: constipation Take 17 g by mouth daily as needed (for constipation) 08/27/19 25 Active sulfamethoxazole-t rimethoprim (BACTRIM DS) 800-160 mg per tabletIndications: Closed fracture of shaft of right femur, unspecified fracture morphology, initial encounter ([facility]) Take 2 tablets (320 mg of trimethoprim total) by mouth 2 (two) times a day for 14 days 56 tablet 09/18/19 25 025 Active irbesartan (AVAPRO) 75 mg tablet Take 1 tablet (75 mg total) by mouth daily 90 tablet 3 07/21/20 21 025 Discontin ued(Stop Taking at Discharge ) apixaban (Eliquis) 5 mg tablet Take 1 tablet (5 mg total) by mouth 2 (two) times a day 180 tablet 1 08/14/19 25 025 Discontin ued(Stop Taking at Discharge ) losartan (COZAAR) 25 mg tablet 06/19/20 24 025 Discontin ued(Stop Taking at Discharge ) Active Problems Problem Noted Date Diagnosed Date Fall 08/26/2024 Assessment & Plan (08/26/2024 10:19 AM SCALING MACHINE OPERATOR): Fell getting out of bed going to walker ABLA (acute blood loss anemia) 08/26/2024 Assessment & Plan (08/27/2024 11:52 AM SCALING MACHINE OPERATOR): 08/23 On admission hgb 12.9 Pt went to OR with orthopedic 08/24 with EBL of 1000 ml, received 2 PRBC and 2 FFP in OR suite, return to floor stable hgb at 8.5, with rising creatinine monitor need for further transfusion. Monitoring Hgb every 6 hours.has been stable around 8.5 Transfuse for hgb continue down trend or continue up trend of creatinine Change cbc to daily -08/27 Hgb 7.7 last night, 1u pRBC given, post-trans Hgb 8.5, stable for discharge. DWAIN (acute kidney injury) 08/26/2024 Assessment & Plan (08/27/2024 11:53 AM SCALING MACHINE OPERATOR): On admission Cr 1.11 08/26 1.5 One liter of fluid Now mid day 1.23 Monitor BM daily if recurrent elevation transfuse one unit of RBC. -08/27 stable for discharge, encourage PO intake. Cervical radiculopathy 08/25/2024 Assessment & Plan (08/27/2024 11:50 AM SCALING MACHINE OPERATOR): 08/25 c/o right neck pain post surgery with pain in right index/thumb/palm. -heat/cold compress -range motion/ PT/OT -gabapentin increase to Q8 hours -08/27 pain under control,will have pain regimens on discharge. Right hand pain 08/25/2024 Assessment & Plan (08/27/2024 11:52 AM SCALING MACHINE OPERATOR): 08/25 Right hand and wrist xray rule out acute fracture 08/26 noted Mild scapholunate interval widening on imaging, s/p fall consult to Plastic Surgery Hand team. Appreciate recommendations. Continue current pain control. --Plastic hand - recommend left hand xray for comparison will see pt.no acute fracture, noted bilateral scapholunate widening. Can wear brace for comfort if recurrent pain. Pain resolved at this time. Plastic hand sign off. Patient should continue to use the hand. If arthritis flares again can try OTC removable thumb spica splint or Voltaren gel. Can also see Dr. Farfan as an outpatient to discuss steroid injections. Patient amenable to this plan. Diabetes 08/24/2024 Assessment & Plan (08/27/2024 11:48 AM SCALING MACHINE OPERATOR): Chronic Glipizide 5 mg, Metformin 500 mg daily, Jardiance 1.5 mg SQ weekly, Empagliflozin 25 mg daily, hold While admitted Glucose check Consistent carb diet 08/25 SSI increase to high slide, added Lispro 5 units with meals 08/27 stable for discharge, continue home regimens on discharge. Follow up with previously established provider for ongoing evaluation. HLD (hyperlipidemia) 08/24/2024 Assessment & Plan (08/27/2024 11:48 AM SCALING MACHINE OPERATOR): Chronic Atorvastatin 40 mg daily Follow up with previously established provider for ongoing evaluation. Encounter for medication management 08/24/2024 Discharge planning issues 08/24/2024 Assessment & Plan (08/27/2024 11:49 AM SCALING MACHINE OPERATOR): 08/25 hgb monitoring post surgical procedure, need to work with PT/OT and pain control. ADD 08/27 08/27 Patient is medically stable for discharge, SW/CM updated. Discharge SNF today Chronic pain 08/24/2024 Assessment & Plan (08/27/2024 11:49 AM SCALING MACHINE OPERATOR): Followed by pain managed Morphine intrathecal management monthly Follow up with previously established provider for ongoing evaluation. Depression 08/24/2024 Assessment & Plan (08/27/2024 11:49 AM SCALING MACHINE OPERATOR): Lexapro 20 mg daily, continue on discharge Follow up with previously established provider for ongoing evaluation. Periprosthetic fracture of shaft of femur 2024 Closed fracture of shaft of right femur 08/23/19 25 Assessment & Plan (08/27/2024 11:48 AM SCALING MACHINE OPERATOR): Orthopedic consult Right isaac implant mid shaft femur fracture 08/24 OR SUSI, long CMN R isaac-implant midshaft femur fx. Pain control TTWB ASA 81 mg BID x 14 days recommendation from orthopedic at discharge Wound Care: Surgical dressings will be changed on POD3. Okay for nursing to reinforce dressings PRN if they become soiled or have shadowing before that time Sutures/[place]: to be removed 3 weeks after surgical date (Sep 14). Please include on discharge orders if patient is going to a facility. If the patient is still in the hospital at that time they will be removed by the orthopedic team. Follow-Up: Patient has follow up scheduled on 10/07/[address] Arora located at [facility] 6A Aspirin 81mg BID x 14 days, Bone health follow up. Seroma due to trauma (CMS/HCC) 06/01/2024 Spinal headache 06/01/2024 Chronic pain syndrome 04/07/2024 Degeneration of lumbar intervertebral disc 04/02 Radiculopathy, lumbosacral region 04/02/2024 Pre-operative clearance 03/25/2024 History of 2019 novel coronavirus disease (COVID -19) 05/09/2022 Chronic fatigue 05/09/2022 History of cancer of urethra 10/04/2020 Assessment & Plan (10/04/2020 3:42 PM SCALING MACHINE OPERATOR): -Diagnosed in 2000. Has had ileal conduit since then. -Doing well overall. No worrisome signs. Encounter for colonoscopy due to history of colo sourav polyp 02/16/2020 Overview (02/16/2020): Added automatically from request for surgery [id number] Closed fracture of phalanx of foot 07/28/2019 Paroxysmal atrial fibrillation (CMS/HCC) 019 Assessment & Plan (08/27/2024 11:47 AM SCALING MACHINE OPERATOR): Hold home Eliquis Toprol XL 37.5mg daily ---> IR while admitted bid 25 and 12.5 [id number]: 5 -will hold Eliquis and start ASA on discharge, continue home metoprolol Follow up with your PCP for medication evaluation and ongoing evaluation. Chronic anticoagulation 03/31/2019 PSVT (paroxysmal supraventricular tachycardia) ( CMS/HCC) 03/09/2019 Near syncope 02/16/2019 Palpitations 02/16/2019 TIA (transient ischemic attack) 02/16/2019 Esophageal ulcer 08/14/2018 Assessment & Plan (08/27/2024 11:47 AM SCALING MACHINE OPERATOR): Chronic Omeprazole 40 mg daily --->pantoprazole while admitted. Follow up with previously established provider for ongoing evaluation. Myocardial bridge 05/01/2018 Abnormal stress test 04/11/2018 Acquired hypothyroidism 04/11/2018 Assessment & Plan (08/27/2024 11:47 AM SCALING MACHINE OPERATOR): Levothyroxine 50 mcg daily Follow up with previously established provider for ongoing evaluation. Hypertension associated with diabetes 04/11/2018 Assessment & Plan (08/27/2024 11:19 AM SCALING MACHINE OPERATOR): Chronic Losartan 25 mg daily HCTZ 25mg daily hold, Irbesartan 75mg, Amlodipine/Atorvastatin 10/40mg daily -08/27 stable for DC Follow up with previously established provider for ongoing evaluation. Mixed diabetic hyperlipidemi a associated with type 2 diabetes mellitus ([facility]) 04/11/2018 SHEETS (dyspnea on exertion) 04/11/2018 Coronary artery disease invo lving telida coronary artery of telida heart without angina pectoris 04/11/2018 S/P coronary artery stent placement 04/11/2018 Benign colon polyp 11/18/2017 BPPV (benign paroxysmal posi tional vertigo), unspecified laterality 02/01/2017 Abnormal gait 02/01/2017 Active cochleovestibular Meniere's disease 02/01 Horizontal vertigo, unspecified laterality 12/19 Peripheral vertigo 11/19/2016 History of ileal conduit 10/23/2016 Assessment & Plan (10/04/2020 3:42 PM SCALING MACHINE OPERATOR): -Stoma pink and moist -Urine clear, yellow and draining well -Skin around ostomy bag is clean and dry Fecal incontinence 09/19/2011 Encounters Date Type Department Care Team Description 09/16/2024 12:30 PM SCALING MACHINE OPERATOR Office Visit [facility] Orthopaedic Surgery [address] [place] [address] 6th [place] [address] [place] [address] Elena Arora MD Closed fracture of shaft of right femur, unspecified fracture morphology, initial encounter ([facility]) (Primary Dx) 08/24/2024 6:00 PM SCALING MACHINE OPERATOR - 08/24/2024 8:40 PM SCALING MACHINE OPERATOR Surgery [facility] Operating Room [address] [place] [address] Elena Arora MD REMOVAL/EXCHANGE INTERMEDULLARY NAILING - FEMUR; ORIF DISTAL FEMUR 08/24/2024 5:35 PM SCALING MACHINE OPERATOR Anesthesia Event [facility] Operating Room [address] [place] [address] Davina Mckeon MD Dippolito, Jenny Irene, NP 08/24/2024 Orders Only [facility] Orthopaedic Surgery [address] [facility] 6th [place] [address] [place] [address] Elena Arora MD Periprosthetic fracture of shaft of femur (Primary Dx) 08/23/2024 1:51 PM SCALING MACHINE OPERATOR - 08/27/2024 7:30 PM SCALING MACHINE OPERATOR Hospital Encounter [facility] [address] [facility] [place] [address] Felice Goyal MD Snyder, Jason Andrew, MD Fall, initial encounter (Primary Dx); Closed fracture of shaft of right femur, unspecified fracture morphology, initial encounter (HCC) Discharge Disposition: Discharge to an IP Rehab facility 07/28/2024 Documentation [facility] Surgery [address] [place] [address] [address] [place] [address] Nina Escalante RMA from Last 3 Months Immunizations Name Administration Dates Next Due Influenza, Quadrivalent, Rec ombinant, Egg Free, Preservative Free, Intramuscular 05/18/2020 Influenza, Unspecified 05/17/2021 Pneumococcal Conjugate PCV 13 02/21/2021 Surgical History Surgery Date Site/Laterality Comments OTHER SURGICAL HISTORY 08/12/2000 - 08/11/2001 : Surgery for urethral cancer; removal of urethra and bladder ILEOSTOMY 08/12/2000 - 08/11/2001 Ileostomy OTHER SURGICAL HISTORY 08/12/2001 - 08/11/2002 repair of hernia around ileostomy OTHER SURGICAL HISTORY 08/12/2006 - 08/11/2007 repair of hernia around the ileostomy OTHER SURGICAL HISTORY ear surgery 1993 and 1998 CARDIAC STENT PLACEMENT HERNIA REPAIR N/A umbilical HYSTERECTOMY 08/12/1981 - 08/11/1982 Hysterectomy OOPHORECTOMY 08/12/1981 - 08/11/1982 Bilateral BACK SURGERY SPINAL CORD STIMULATOR REMOVAL Medical History Medical History Date Comments Hx Other Medical 2001 3 broken ribs a nd pneumothorax Hx Other Medical 6 Hepatitis Personal history of other en docrine, nutritional and metabolic disease History of diabetes mellitus - also, neuropathy (Added by TW Conv) Personal history of other di seases of the circulatory system History of hypertension - (A dded by TW Conv) Closed fracture of one rib Close d rib fracture - appx 2001 (Added by TW Conv) Personal history of other en docrine, nutritional and metabolic disease History of hyperlipi demia - (Added by TW Conv) Atherosclerosis Atherosclerosis - Coronary cardiac stent (Added by TW Conv) Type 2 diabetes mellitus wit h diabetic polyneuropathy ([facility]) Diabetic peripheral neuropat hy - (Added by TW Conv) Age-related macular degeneration Macular degeneration - (Added by TW Conv) Melena Melena - (Added by TW Conv) Personal history of other di seases of the digestive system History of constipation - (A dded by TW Conv) Personal history of transien t ischemic attack (TIA), and cerebral infarction without residual deficits History of transient cerebra l ischemia - (Added by TW Conv) Hypertension Atrial fibrillation (CMS/HCC) ([facility]) Acid indigestion Diverticulitis Cataracts, bilateral Arthritis Coronary artery disease 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 Covid 2021 PONV (postoperative nausea and vomiting) GERD (gastroesophageal reflux disease) Chronic pain disorder Cancer (CMS/HCC) ([facility]) Family History Medical History Relation Name Comments Coronary artery disease Brother 2 Tiff nary Artery Disease; Heart failure Mother Congestive Hea rt Failure; Cause of : Congestive Heart Failure Stroke Sister 2 Stroke; Cause o f : Stroke Relation Name Status Comments Brother 1 Alive Brother 2 Father Mother Sister 1 Sister 2 Social History Tobacco Use Types Packs/Day Years Used Date Smoking Tobacco: Former Cigarettes Q uit: 1998 Smokeless Tobacco: Never Tobacco Cessation:Counseling Given: Not Answered Alcohol Use Standard Drinks/Week Comments Yes 0 (1 standard drink = 0.6 oz pur e alcohol) rarely AUDIT-C Answer Date Recorded Q1: How often do you have a drink containing alc ohol? Monthly or less 08/24/2024 Q2: How many drinks containi ng alcohol do you have on a typical day when you are drinking? 1 or 2 08/24/2024 Q3: How often do you have si x or more drinks on one occasion? Never 08/24/2024 PHQ-2 Answer Date Recorded PHQ-2 Total Score (If total score is 3 or more points, staff should administer the PHQ-9) 0 08/23/2024 Personal Safety Answer Date Recorded Have you ever been in or are you currently in a harmful physical or emotional relationship or is someone making you feel afraid or unsafe? Denies 08/23/2024 Comments No Sex and Gender Information Value Date Recorded Sex Assigned at Not on file Legal Sex Female 11:33 PM SCALING MACHINE OPERATOR Gender Identity Not on file Sexual Orientation Not on file Occupation Industry Job Start Date Job End Date Retired Not on file Not on file Not on file Obstetrics History Para Term AB IAB SAB Ectopic Multiple Livin g Live Births 3 3 3 Date Outcome GA Total Labor Labor/2nd/3rd Weight Sex Type Anes PTL [place]ne A1 A5 Name Clin Term Term Term Last Filed Vital Signs Vital Sign Reading Time Taken Comments Blood Pressure 117/53 08/27/2024 5:33 PM SCALING MACHINE OPERATOR Pulse 75 08/27/2024 5:33 PM SCALING MACHINE OPERATOR Temperature 37 C (98.6 F) 08/27/2024 4:22 PM SCALING MACHINE OPERATOR Respiratory Rate 16 08/27/2024 4:22 PM SCALING MACHINE OPERATOR Oxygen Saturation 96% 08/27/2024 4:22 PM SCALING MACHINE OPERATOR Inhaled Oxygen Concentration - - Weight 63.5 kg (140 lb) 08/23/2024 9:55 PM SCALING MACHINE OPERATOR Height 165.1 cm (5' 5 ) 08/23/2024 9:55 PM SCALING MACHINE OPERATOR Body Mass Index 23.3 08/23/2024 9:55 PM SCALING MACHINE OPERATOR Plan of Treatment Health Maintenance Due Date Last Done Comments Albumin Creatinine Ratio, Urine 1940 DTaP/Tdap/Td Vaccine (1 - Tdap) 10/23/1950 Hepatitis B Screening 10/23/1957 Zoster Vaccine (1 of 2) 10/23/1989 Pneumococcal vaccine 65+ (2 of 2 - PPSV23 or PCV20) 04/18/2021 02/21/2021 Hemoglobin A1C 11/20/2021 05/22/2021, 02/17/2021 Dilated Eye Exam 12/10/2021 12/10/2020 Foot Exam 02/21/2022 02/21/2021, 02/21/2021 Well Visit 65+ 02/21/2022 02/21/2021 Osteoporosis Screening-Bone Density Scan 06/02/2023 06/02/2021 Influenza Vaccine (#1) 2024 05/17/2021, 2019 Depression Screening 08/23/2025 08/23/2024, 08/23/2024, 02/21/2021, Additional history exists Lipid Panel 08/23/2025 08/23/2024, 04/13, 02/17/2021, Additional history exists eGFR 08/26/2025 08/26/2024, 08/12, 08/26/2024, Additional history exists Fall Risk Assessment 08/27/2025 08/27/2024, 02/21/2021, 01/24/2021 Medical Devices Implanted Type Area Ux Architect Device Identifier Shelf Expiration Date Model / Serial / Lot [employer]Rich[employer]/Ort ho Cable Bone Cerclage With Crimp Evos Stainless Steel [id number] - [id number] Implanted:Qty: 1 on 08/24/2024 at [facility] Cable Right: Femur [employer]/ Ortho [id number] / / [employer]/Ort ho Cable Bone Cerclage With Crimp Evos Stainless Steel [id number] - [id number] Implanted:Qty: 1 on 08/24/2024 by Elena Arora MD at [facility] Cable Right: Femur [employer]/ Ortho [id number] / / [employer]/Ort ho Nail Intramedullary Right 125 Degree Femoral Intertan [id number] Titanium [id number] - [id number] Implanted:Qty: 1 on 08/24/2024 by Elena Arora MD at [facility] Nail Right: Femur [employer]/ Ortho [id number] 10/08/2030 [id number] / / [id number] 14h R Pp Distal Femur Plate Implanted:Qty: 1 on 08/24/2024 by Elena Arora MD at [facility] Plate Right: Femur [employer] [id number] / / Description:Inactive. Misc c ode used [employer]/Ort ho Intertan 4.5mm 90mm 85mm Lag Compression Integrate Interlock [id number] - [id number] Implanted:Qty: 1 on 08/24/2024 by Elena Arora MD at [facility] Screw Right: Femur [employer]/ Ortho [id number] / / [employer]/Ort ho Screw Bone Locking Femoral Self Tapping Full Thread Low Profile Trigen Stainless Steel 5.0x32.5mm [id number] - [id number] Implanted:Qty: 1 on 08/24/2024 by Elena Arora MD at [facility] Screw Right: Femur [employer]/ Ortho [id number] / / [employer]/Ort ho 5mm 35mm Low Profile Internal Hex Femur Screw Bone Trigen [id number] - [id number] Implanted:Qty: 1 on 08/24/2024 by Elena Arora MD at [facility] Screw Right: Femur [employer]/ Ortho [id number] / / [employer]/Ort ho Screw Bone Cortical St Evos 4.5x34mm [id number] - [id number] Implanted:Qty: 2 on 08/24/2024 by Elena Arora MD at [facility] Screw Right: Femur [employer]/ Ortho [id number] / / [employer]/Ort ho Screw Bone Cortical St Evos 4.5x30mm [id number] - [id number] Implanted:Qty: 2 on 08/24/2024 by Elena Arora MD at [facility] Screw Right: Femur [employer]/ Ortho [id number] / / [employer]/Ort ho Screw Bone Cortical St Evos 4.5x36mm [id number] - [id number] Implanted:Qty: 1 on 08/24/2024 by Elena Arora MD at [facility] Screw Right: Femur [employer]/ Ortho [id number] / / [employer]/Ort ho Evos 3.5mm 38mm Self Tap Cortex Screw Bone Sterile [id number] - [id number] Implanted:Qty: 1 on 08/24/2024 by Elena Arora MD at [facility] Screw Right: Femur [employer]/ Ortho [id number] / / [employer]/Ort ho Evos 4.5mm X 64mm Locking Screw Self-Tapping [id number] - [id number] Implanted:Qty: 2 on 08/24/2024 by Elena Arora MD at [facility] Screw Right: Femur [employer]/ Ortho [id number] / / [employer]/Ort ho Screw Locking Evos 4.5mm X 60mm Self-Tapping [id number] - [id number] Implanted:Qty: 1 on 08/24/2024 by Elena Arora MD at [facility] Screw Right: Femur [employer]/ Ortho [id number] / / Cypher Cardiac Stent Heart [employer] Catheter Intrathecal Spinal Segment 2 Piece Silicone Ascenda [id number] 8780 - [id number] Implanted:Qty: 1 on 04/02/2024 by Joshua Ramirez MD at [facility] Left: Back Med[employer]onic Inc 03/10/2026 8780 / / [id number] Med[employer] X Pump Infusion Programmable Ulp Ami 20ml Volume 8667-20 - [id number] - [id number] Implanted:Qty: 1 on 04/02/2024 by Joshua Ramirez MD at [facility] Left: Abdomen Med[employer] X 08/08/2025 8667-20 / [id number] / Med[employer] Inc Tyrx 3.35x3in Large Envelope Absorbable Polyarylate Minocycline [id number] - [id number] Implanted:Qty: 1 on 04/02/2024 by Joshua Ramirez MD at [facility] Left: Abdomen Med[employer]onic Inc 11/14/2024 [id number] / / [id number] Med[employer]onic Inc Kit Intrathecal Catheter Revision Segment [place] Removal Ascenda 8785 - [id number] Implanted:Qty: 1 on 04/02/2024 by Joshua Ramirez MD at [facility] Left: Abdomen Med[employer]onic Inc 02/19/2026 8785 / / [id number] [employer]Rich[employer]/Ort ho Screw Bone Cortical St Evos 4.5x28mm [id number] - [id number] Implanted:Qty: 1 on 08/24/2024 by Elena Arora MD at [facility] Right: Femur [employer]/ Ortho [id number] / / [employer]/Ort ho Cable Bone Cerclage With Crimp Evos Stainless Steel [id number] - [id number] Implanted:Qty: 1 on 08/24/2024 at [facility] Right: Femur [employer]/ Ortho [id number] / / 3.5 Non Locking Screw Implanted:Qty: 2 on 08/24/2024 by Elena Arora MD at [facility] Right: Femur [employer] [id number] / / Description:Inactive. Misc c ode used 4.5 Locking Screw Implanted:Qty: 2 on 08/24/2024 by Elena Arora MD at [facility] Right: Femur [employer] [id number] / / Description:Inactive. Misc c ode used Explanted Type Area Ux Architect Device Identifier Shelf Expiration Date Model / Serial / Lot [employer]/Richco/Orth o Trigen Intertan 11.5mm 38cm Antegrade Intertrochanter Right 125d [id number] - [id number] Explanted:Qty: 1 on 08/24/2024 by Sharan De La Vega MD at [facility] Nail Right: Femur [employer]/O rtho [id number] 01/08/2028 [id number] / / [id number] [employer]/Orth o Screw Bone Cortical St Evos 4.5x34mm [id number] - [id number] Explanted:Qty: 1 on 08/24/2024 at [facility] Screw Right: Femur [employer]/O rtho [id number] / / [employer]/Orth o Screw Bone Cortical St Evos 4.5x74mm [id number] - [id number] Explanted:Qty: 1 on 08/24/2024 by Elena Arora MD at [facility] Right: Femur [employer]O rtho [id number] / / Procedures Procedure Name Priority Date/Time Associated Diagnosis Comments POCT GLUCOSE DEVICE Routine 08/27/2024 6 :33 PM SCALING MACHINE OPERATOR POCT GLUCOSE DEVICE Routine 08/27/2024 11:58 AM SCALING MACHINE OPERATOR POCT GLUCOSE DEVICE Routine 08/27/2024 8 :00 AM SCALING MACHINE OPERATOR CBC WITHOUT DIFFERENTIAL Routine 08/27/2024 3:20 AM SCALING MACHINE OPERATOR CBC WITHOUT DIFFERENTIAL Timed 08/27/2024 2:54 AM SCALING MACHINE OPERATOR TRANSFUSE RED BLOOD CELLS Timed 08/26/2024 11:55 PM SCALING MACHINE OPERATOR PREPARE RBC Timed 08/26/2024 10:56 PM SCALING MACHINE OPERATOR EGFR Routine 08/26/2024 9:01 PM SCALING MACHINE OPERATOR DIFFERENTIAL AUTO Routine 08/26/2024 9:0 1 PM SCALING MACHINE OPERATOR CBC WITH AUTO DIFFERENTIAL Routine 08/26/2024 9:01 PM SCALING MACHINE OPERATOR PHOSPHORUS Routine 08/26/2024 9:01 PM SCALING MACHINE OPERATOR MAGNESIUM Routine 08/26/2024 9:01 PM SCALING MACHINE OPERATOR BASIC METABOLIC PANEL Routine 08/26/2024 9:01 PM SCALING MACHINE OPERATOR POCT GLUCOSE DEVICE Routine 08/26/2024 7 :59 PM SCALING MACHINE OPERATOR POCT GLUCOSE DEVICE Routine 08/26/2024 4 :41 PM SCALING MACHINE OPERATOR XR HAND RIGHT 1 VIEW IP Routine 08/26/2024 2:21 PM SCALING MACHINE OPERATOR XR HAND LEFT 3 OR MORE VIEWS IP Routine 08/26/2024 2:21 PM SCALING MACHINE OPERATOR POCT GLUCOSE DEVICE Routine 08/26/2024 12:22 PM SCALING MACHINE OPERATOR EGFR Routine 08/26/2024 10:26 AM SCALING MACHINE OPERATOR BASIC METABOLIC PANEL Routine 08/26/2024 10:26 AM SCALING MACHINE OPERATOR TYPE AND SCREEN Timed 08/26/2024 10:26 AM SCALING MACHINE OPERATOR POCT GLUCOSE DEVICE Routine 08/26/2024 8 :12 AM SCALING MACHINE OPERATOR DIFFERENTIAL AUTO Timed 08/26/2024 5:1 7 AM SCALING MACHINE OPERATOR CBC WITH AUTO DIFFERENTIAL Timed 08/26/2024 5:17 AM SCALING MACHINE OPERATOR EGFR Routine 08/26/2024 12:32 AM SCALING MACHINE OPERATOR DIFFERENTIAL AUTO Timed 08/26/2024 12:32 AM SCALING MACHINE OPERATOR PHOSPHORUS Routine 08/26/2024 12:32 AM SCALING MACHINE OPERATOR MAGNESIUM Routine 08/26/2024 12:32 AM SCALING MACHINE OPERATOR BASIC METABOLIC PANEL Routine 08/26/2024 12:32 AM SCALING MACHINE OPERATOR CBC WITH AUTO DIFFERENTIAL Timed 08/26/2024 12:32 AM SCALING MACHINE OPERATOR DIFFERENTIAL AUTO Timed 08/25/2024 11:33 PM SCALING MACHINE OPERATOR CBC WITH AUTO DIFFERENTIAL Timed 08/25/2024 11:33 PM SCALING MACHINE OPERATOR ED CRITICAL CARE Routine 08/25/2024 9:45 PM SCALING MACHINE OPERATOR POCT GLUCOSE DEVICE Routine 08/25/2024 9 :13 PM SCALING MACHINE OPERATOR POCT GLUCOSE DEVICE Routine 08/25/2024 7 :49 PM SCALING MACHINE OPERATOR POCT GLUCOSE DEVICE Routine 08/25/2024 5 :55 PM SCALING MACHINE OPERATOR XR HAND RIGHT 3 OR MORE VIEWS IP Routine 08/25/2024 2:50 PM SCALING MACHINE OPERATOR XR WRIST RIGHT 3 OR MORE VIEWS IP Routine 08/25/2024 2:50 PM SCALING MACHINE OPERATOR EGFR Routine 08/25/2024 1:30 PM SCALING MACHINE OPERATOR DIFFERENTIAL AUTO Timed 08/25/2024 1:3 0 PM SCALING MACHINE OPERATOR CBC WITH AUTO DIFFERENTIAL Timed 08/25/2024 1:30 PM SCALING MACHINE OPERATOR PHOSPHORUS Routine 08/25/2024 1:30 PM SCALING MACHINE OPERATOR MAGNESIUM Routine 08/25/2024 1:30 PM SCALING MACHINE OPERATOR BASIC METABOLIC PANEL Routine 08/25/2024 1:30 PM SCALING MACHINE OPERATOR POCT GLUCOSE DEVICE Routine 08/25/2024 11:42 AM SCALING MACHINE OPERATOR POCT GLUCOSE DEVICE Routine 08/25/2024 8 :10 AM SCALING MACHINE OPERATOR DIFFERENTIAL AUTO Routine 08/24/2024 11:36 PM SCALING MACHINE OPERATOR CBC WITH AUTO DIFFERENTIAL Routine 08/24/2024 11:36 PM SCALING MACHINE OPERATOR POCT GLUCOSE DEVICE Routine 08/24/2024 11:30 PM SCALING MACHINE OPERATOR POC BLOOD GAS AND CHEMISTRIES, ARTERIAL Routine 08/24/2024 10:52 PM SCALING MACHINE OPERATOR POC BLOOD GAS AND CHEMISTRIES, ARTERIAL Routine 08/24/2024 10:07 PM SCALING MACHINE OPERATOR TRANSFUSE RED BLOOD CELLS Timed 08/24/2024 9:44 PM SCALING MACHINE OPERATOR ANESTHESIA ARTERIAL LINE PLACEMENT Routine 08/24/2024 9:43 PM SCALING MACHINE OPERATOR PERIPHERAL LINE Routine 08/24/2024 9:43 PM SCALING MACHINE OPERATOR TRANSFUSE PLASMA Routine 08/24/2024 9:39 PM SCALING MACHINE OPERATOR TRANSFUSE PLASMA Timed 08/24/2024 9:24 PM SCALING MACHINE OPERATOR PREPARE PLASMA STAT 08/24/2024 9:19 PM SCALING MACHINE OPERATOR PREPARE RBC STAT 08/24/2024 9:19 PM SCALING MACHINE OPERATOR POC BLOOD GAS AND CHEMISTRIES, ARTERIAL Routine 08/24/2024 9:16 PM SCALING MACHINE OPERATOR POCT PARTIAL THROMBOPLASTIN TIME (PTT) Routine 08/24/2024 9:15 PM SCALING MACHINE OPERATOR POCT PLATELET COUNT AND HEMATOCRIT Routine 08/24/2024 9:15 PM SCALING MACHINE OPERATOR POCT PROTHROMBIN TIME Routine 08/24/2024 9:14 PM SCALING MACHINE OPERATOR PREPARE PLASMA Timed 08/24/2024 9:06 PM SCALING MACHINE OPERATOR TRANSFUSE RED BLOOD CELLS Timed 08/24/2024 8:57 PM SCALING MACHINE OPERATOR PREPARE RBC STAT 08/24/2024 8:31 PM SCALING MACHINE OPERATOR FL FLUOROSCOPY < 1 HOUR IP Routine 08/24/2024 8:00 PM SCALING MACHINE OPERATOR POCT GLUCOSE DEVICE Routine 08/24/2024 6 :36 PM SCALING MACHINE OPERATOR FL AN PROCEDURE PLACEHOLDER Routine 08/24/2024 6:22 PM SCALING MACHINE OPERATOR FL AN ELECTIVE ENDOTRACHEAL AIRWAY Routine 08/24/2024 6:22 PM SCALING MACHINE OPERATOR REMOVAL/EXCHANGE INTERMEDULLARY NAILING - FEMUR 08/24/2024 5:38 PM SCALING MACHINE OPERATOR Closed fracture of shaft of right femur, unspecified fracture morphology, initial encounter (HCC) FL AN PROCEDURE PLACEHOLDER Routine 08/24/2024 2:53 PM SCALING MACHINE OPERATOR B CHECK SAMPLE STAT 08/24/2024 2:14 PM SCALING MACHINE OPERATOR POCT GLUCOSE DEVICE Routine 08/24/2024 2 :10 PM SCALING MACHINE OPERATOR POCT GLUCOSE DEVICE Routine 08/24/2024 11:51 AM SCALING MACHINE OPERATOR EGFR STAT 08/24/2024 9:39 AM SCALING MACHINE OPERATOR DIFFERENTIAL AUTO STAT 08/24/2024 9:3 9 AM SCALING MACHINE OPERATOR COMPREHENSIVE METABOLIC PANEL STAT 08/24/2024 9:39 AM SCALING MACHINE OPERATOR CBC WITH AUTO DIFFERENTIAL STAT 08/24/2024 9:39 AM SCALING MACHINE OPERATOR PHOSPHORUS STAT 08/24/2024 9:39 AM SCALING MACHINE OPERATOR MAGNESIUM STAT 08/24/2024 9:39 AM SCALING MACHINE OPERATOR POCT GLUCOSE DEVICE Routine 08/24/2024 8 :16 AM SCALING MACHINE OPERATOR POTASSIUM, WHOLE BLOOD Timed 08/24/2024 3:38 AM SCALING MACHINE OPERATOR POCT GLUCOSE DEVICE Routine 08/23/2024 10:27 PM SCALING MACHINE OPERATOR POCT GLUCOSE DEVICE Routine 08/23/2024 9 :05 PM SCALING MACHINE OPERATOR CT PELVIS WO CONTRAST ED Urgent/IP Urgent 08/23/2024 7:10 PM SCALING MACHINE OPERATOR CT CERVICAL SPINE WO CONTRAST ED 08/23/2024 5:30 PM SCALING MACHINE OPERATOR LIPID PANEL STAT 08/23/2024 4:49 PM SCALING MACHINE OPERATOR EGFR STAT 08/23/2024 4:49 PM SCALING MACHINE OPERATOR COMPREHENSIVE METABOLIC PANEL STAT 08/23/2024 4:49 PM SCALING MACHINE OPERATOR FL INJECTION AA&/STRD OTHER PERIPHERAL NERVE/BRANCH Routine 08/23/2024 4:15 PM SCALING MACHINE OPERATOR XR HIP RIGHT 2 OR 3 VIEWS ED Urgent/IP Urgent 08/23/2024 3:51 PM SCALING MACHINE OPERATOR XR FEMUR RIGHT 2 OR MORE VIEWS ED Urgent/IP Urgent 08/23/2024 3:35 PM SCALING MACHINE OPERATOR XR PELVIS 1 OR 2 VIEWS ED 08/23/2024 3:34 PM SCALING MACHINE OPERATOR XR CHEST 1 VIEW ED 08/23/2024 3:34 PM SCALING MACHINE OPERATOR DIFFERENTIAL AUTO STAT 08/23/2024 3:0 9 PM SCALING MACHINE OPERATOR TYPE AND SCREEN STAT 08/23/2024 3:09 PM SCALING MACHINE OPERATOR CBC WITH AUTO DIFFERENTIAL STAT 08/23/2024 3:09 PM SCALING MACHINE OPERATOR PROTIME-INR STAT 08/23/2024 3:09 PM SCALING MACHINE OPERATOR APTT STAT 08/23/2024 3:09 PM SCALING MACHINE OPERATOR NEURO CT OUTSIDE REFERENCE Routine 08/23/2024 2:36 PM SCALING MACHINE OPERATOR XR TRANSFER OF OUTSIDE FILMS Routine 08/23/2024 2:33 PM SCALING MACHINE OPERATOR XR TRANSFER OF OUTSIDE FILMS Routine 08/23/2024 2:30 PM SCALING MACHINE OPERATOR POCT KETONE, BLOOD Routine 08/23/2024 2: 05 PM SCALING MACHINE OPERATOR POCT GLUCOSE DEVICE Routine 08/23/2024 2 :04 PM SCALING MACHINE OPERATOR DEXA AXIAL SKELETON BONE DENSITY 1 OR MORE SITES Schedule Routine, Read Routine (OP Routine) 06/02/2021 3:15 PM CDT Postmenopause HEMOGLOBIN A1C Routine 05/22/2021 9:55 AM CDT Uncontrolled type 2 diabetes mellitus with hyperglycemia (CMS/HCC) (HCC) DIABETIC EYE EXAM Routine 12/10/2020 from Last 3 Months or Most Recently Relevant to Health Maintenance Results * POCT glucose (08/27/2024 6:33 PM SCALING MACHINE OPERATOR) Glucose, POC 139 70 - 199 mg/dL Blood 08/27/2024 6:33 PM SCALING MACHINE OPERATOR 08/27/2024 6:33 PM SCALING MACHINE OPERATOR Tashi Parisi MD LAB POCT ORDERABLES - DEV ICE Final Result Performing Organization Address [facility] de Phone Number [facility] [place] [address] * (ABNORMAL) POCT glucose (08/27/2024 11:58 AM SCALING MACHINE OPERATOR) Glucose, POC 203(H) 70 - 199 mg/dL Comment:Glu2: RN/MD Notified Glucose comment 1 Glu2: RN/MD Notified [facility] Blood 08/27/2024 11:5 8 AM SCALING MACHINE OPERATOR 08/27/2024 11:58 AM SCALING MACHINE OPERATOR Tashi Parisi MD LAB POCT ORDERABLES - DEV ICE Final Result Performing Organization Address [facility] de Phone Number [facility] [place] [address] * POCT glucose (08/27/2024 8:00 AM SCALING MACHINE OPERATOR) Glucose, POC 146 70 - 199 mg/dL Blood 08/27/2024 8:00 AM SCALING MACHINE OPERATOR 08/27/2024 8:00 AM SCALING MACHINE OPERATOR Tashi Parisi MD LAB POCT ORDERABLES - DEV ICE Final Result Performing Organization Address [facility] de Phone Number [facility] [place] [address] * (ABNORMAL) CBC without differential (08/27/2024 3:20 AM SCALING MACHINE OPERATOR) [facility] WBC 10.4(H) 3.8 - 9.9 K/cumm Hgb 8.5(L) 11.9 - 15.5 g/dL [facility] Hct 25.9(L) 35.6 - 45.5 % [facility] Plt 171 150 - 400 K/cumm [facility] MPV 9.9 9.1 - 12.3 fL [facility] RBC 2.98(L) 3.90 - 5.20 M/cumm [facility] MCV 86.9 81.3 - 96.4 fL [facility] MCH 28.5 27.1 - 33.3 pg [facility] MCHC 32.8 32.3 - 35.7 g/dL [facility] RDW CV 15.7(H) 11.1 - 14.9 % [facility] RDW SD 49.5(H) 35.7 - 48.1 fL [facility] NRBC abs 0.00 0.00 - 0.01 K/cumm [facility] Blood 08/27/2024 3:20 AM SCALING MACHINE OPERATOR 08/27/2024 5:04 AM SCALING MACHINE OPERATOR Tashi Parisi MD LAB BLOOD ORDERABLES Anna mari Result [facility] [place] [address] * (ABNORMAL) CBC without differential (08/27/2024 2:54 AM SCALING MACHINE OPERATOR) WBC 10.1(H) 3.8 - 9.9 K/cumm Hgb 8.5(L) 11.9 - 15.5 g/dL [facility] Hct 25.7(L) 35.6 - 45.5 % [facility] Plt 173 150 - 400 K/cumm [facility] MPV 9.8 9.1 - 12.3 fL [facility] RBC 2.92(L) 3.90 - 5.20 M/cumm [facility] MCV 88.0 81.3 - 96.4 fL [facility] MCH 29.1 27.1 - 33.3 pg [facility] MCHC 33.1 32.3 - 35.7 g/dL [facility] RDW CV 15.4(H) 11.1 - 14.9 % [facility] RDW SD 49.6(H) 35.7 - 48.1 fL [facility] NRBC abs 0.00 0.00 - 0.01 K/cumm [facility] Blood 08/27/2024 2:54 AM SCALING MACHINE OPERATOR 08/27/2024 3:32 AM SCALING MACHINE OPERATOR Narrative [facility] - 08/27/2024 3:40 AM SCALING MACHINE OPERATOR 1 hour after transfusion of red blood cells is complete Tashi Parisi MD LAB BLOOD ORDERABLES Anna l Result Performing Organization Address [facility] Co de Phone Number [facility] [place] [address] * Transfuse RBC (08/27/2024 2:20 AM SCALING MACHINE OPERATOR) Blood Tashi Parisi MD BLOOD TRANSFUSION ORDERAB LES Final Result Performing Organization Address [facility] Co de Phone Number [facility] [place] [address] * Prepare RBC: 1 Units (08/26/2024 10:56 PM SCALING MACHINE OPERATOR) Product code [id number] Unit Number [id number] [facility] Product Blood Type OPOS [facility] Dispense Status PRESUMED TRANSFUSED [facility] Blood 08/26/2024 10:5 6 PM SCALING MACHINE OPERATOR 08/26/2024 10:57 PM SCALING MACHINE OPERATOR Narrative [facility] - 08/27/2024 4:01 PM SCALING MACHINE OPERATOR Are special requirements needed? (All products are leukoreduced and CMV- safe)- >No Date required:-[id number] LRRBC # of [id number] Reasons:-Cardiovascular disease, Hgb <8 g/dL} Tashi Parisi MD BLOOD BANK PRODUCT ORDERA BLES Final Result Performing Organization Address [facility] Co de Phone Number [facility] [place] [address] * (ABNORMAL) eGFR (08/26/2024 9:01 PM SCALING MACHINE OPERATOR) Pathologist [facility] eGFR 36(L) >=60 mL/min/1. 73 m2 Comment: Interpretive Data Reference Interval Normal >/= 90 mL/min/1.73m2 Mildly decreased* 60 - 89 mL/min/1.73m2 Mildly to moderately decreased 45 - 59 mL/min/1.73m2 Moderately to severely decreased 30 - 44 mL/min/1.73m2 Severely decreased 15 - 29 mL/min/1.73m2 Kidney Failure < 15 mL/min/1.73m2 *Relative to young adult level Estimated glomerular filtration rate is determined by the 2020 CKD-EPI equation recommended by the National Kidney Foundation (A Unifying Approach to GFR Estimation: Recommendations of the NKF-ASK Task Force on Reassessing the Inclusion of Race in Diagnosing Kidney Disease, JASN 2020). The CKD-EPI equation should not be used for patients with unstable renal function and has not been validated in children and those over 70. Current interpretive data was last reviewed 2021. Blood 08/26/2024 9:01 PM SCALING MACHINE OPERATOR 08/26/2024 9:42 PM SCALING MACHINE OPERATOR us Radha Kirk CAMERA REPAIR TECHNICIAN LAB BLOOD ORDERABLES Final Result [facility] [place] [address] * (ABNORMAL) Differential, auto (08/26/2024 9:01 PM SCALING MACHINE OPERATOR) Pathologist [facility] Neutrophil abs 7.3(H) 1.5 - 6.5 K/cumm Imm gran abs 0.1 0.0 - 0.1 K/cumm [facility] Lymphocyte abs 1.6 0.8 - 3.3 K/cumm [facility] Monocyte abs 1.0(H) 0.2 - 0.8 K/cumm [facility] Eosinophil abs 0.3 0.0 - 0.5 K/cumm [facility] Basophil abs 0.1 0.0 - 0.1 K/cumm [facility] Neutrophil pct 71.0 % [facility] Comment: Interpretive Data Percent cell count reference ranges are not reported, since discordance with absolute values may lead to misinterpretation of CBC data. Current Interpretive Data was last revised on 2017. Imm gran pct 0.8 % [facility] Comment: Interpretive Data Percent cell count reference ranges are not reported, since discordance with absolute values may lead to misinterpretation of CBC data. Current Interpretive Data was last revised on 2017. Lymphocyte pct 15.4 % [facility] Comment: Interpretive Data Percent cell count reference ranges are not reported, since discordance with absolute values may lead to misinterpretation of CBC data. Current Interpretive Data was last revised on 2017. Monocyte pct 9.5 % [facility] Comment: Interpretive Data Percent cell count reference ranges are not reported, since discordance with absolute values may lead to misinterpretation of CBC data. Current Interpretive Data was last revised on 2017. Eosinophil pct 2.8 % [facility] Comment: Interpretive Data Percent cell count reference ranges are not reported, since discordance with absolute values may lead to misinterpretation of CBC data. Current Interpretive Data was last revised on 2017. Basophil pct 0.5 % [facility] Comment: Interpretive Data Percent cell count reference ranges are not reported, since discordance with absolute values may lead to misinterpretation of CBC data. Current Interpretive Data was last revised on 2017. Blood 08/26/2024 9:01 PM SCALING MACHINE OPERATOR 08/26/2024 9:42 PM SCALING MACHINE OPERATOR us Radha Kirk CAMERA REPAIR TECHNICIAN LAB BLOOD ORDERABLES Final Result [facility] [place] [address] * (ABNORMAL) CBC with auto differential (08/26/2024 9:01 PM SCALING MACHINE OPERATOR) WBC 10.3(H) 3.8 - 9.9 K/cumm Hgb 7.7(L) 11.9 - 15.5 g/dL [facility] Hct 23.6(L) 35.6 - 45.5 % [facility] Plt 185 150 - 400 K/cumm [facility] MPV 9.8 9.1 - 12.3 fL [facility] RBC 2.61(L) 3.90 - 5.20 M/cumm [facility] MCV 90.4 81.3 - 96.4 fL [facility] MCH 29.5 27.1 - 33.3 pg [facility] MCHC 32.6 32.3 - 35.7 g/dL [facility] RDW CV 15.1(H) 11.1 - 14.9 % [facility] RDW SD 49.7(H) 35.7 - 48.1 fL [facility] NRBC abs 0.00 0.00 - 0.01 K/cumm [facility] Blood 08/26/2024 9:01 PM SCALING MACHINE OPERATOR 08/26/2024 9:42 PM SCALING MACHINE OPERATOR Radha Kirk CAMERA REPAIR TECHNICIAN LAB BLOOD ORDERABLES Final Result [facility] [place] [address] * (ABNORMAL) Phosphorus (08/26/2024 9:01 PM SCALING MACHINE OPERATOR) Phosphorus, pl 1.6(L) 2.3 - 4.5 mg/dL Blood 08/26/2024 9:01 PM SCALING MACHINE OPERATOR 08/26/2024 9:42 PM SCALING MACHINE OPERATOR Radha Kirk CAMERA REPAIR TECHNICIAN LAB BLOOD ORDERABLES Final Result [facility] [place] [address] * Magnesium (08/26/2024 9:01 PM SCALING MACHINE OPERATOR) Magnesium 1.7 1.4 - 2.5 mg/dL Blood 08/26/2024 9:01 PM SCALING MACHINE OPERATOR 08/26/2024 9:42 PM SCALING MACHINE OPERATOR Radha Kirk CAMERA REPAIR TECHNICIAN LAB BLOOD ORDERABLES Final Result [facility] [place] [address] * (ABNORMAL) Basic metabolic panel (08/26/2024 9:01 PM SCALING MACHINE OPERATOR) [facility] Sodium 140 135 - 145 mmol/L Potassium, pl 3.7 3.3 - 4.9 mmol/L [facility] Chloride 111(H) 97 - 110 mmol/L [facility] CO2 21(L) 22 - 32 mmol/L [facility] Anion gap 8 2 - 15 mmol/L [facility] BUN 40(H) 6 - 25 mg/dL [facility] Creatinine 1.43(H) 0.60 - 1.10 mg/dL [facility] Glucose 150 70 - 199 mg/dL [facility] Comment: Interpretive Data Fasting glucose >/= 126 mg/dl is diagnostic for diabetes. Fasting is defined as no caloric intake for at least 8 hours. Fasting glucose between 100 mg/dl to 125 mg/dl is diagnostic of prediabetes. In a patient with classic symptoms of hyperglycemia or hyperglycemic crisis, a random glucose >/= 200 mg/dl is diagnostic for diabetes. In the absence of unequivocal hyperglycemia, results should be confirmed by repeat testing. The classification and Diagnosis of Diabetes Diabetes Care 202; 46: S19-S40. Current interpretive data was last revised 2022. Calcium 8.4(L) 8.5 - 10.3 mg/dL [facility] Blood 08/26/2024 9:01 PM SCALING MACHINE OPERATOR 08/26/2024 9:42 PM SCALING MACHINE OPERATOR Radha Kirk CAMERA REPAIR TECHNICIAN LAB BLOOD ORDERABLES Final Result Performing Organization Address City/[facility]/ZIP Co de Phone Number [facility] [place] [address] * POCT glucose (08/26/2024 7:59 PM SCALING MACHINE OPERATOR) Glucose, POC 168 70 - 199 mg/dL Blood 08/26/2024 7:59 PM SCALING MACHINE OPERATOR 08/26/2024 7:59 PM SCALING MACHINE OPERATOR Tashi Parisi MD LAB POCT ORDERABLES - DEV ICE Final Result Performing Organization Address [facility] de Phone Number [facility] [place] [address] * (ABNORMAL) POCT glucose (08/26/2024 4:41 PM SCALING MACHINE OPERATOR) Glucose, POC 227(H) 70 - 199 mg/dL Comment:Glu2: RN/MD Notified Glucose comment 1 Glu2: RN/MD Notified [facility] Blood 08/26/2024 4:41 PM SCALING MACHINE OPERATOR 08/26/2024 4:41 PM SCALING MACHINE OPERATOR Tashi Parisi MD LAB POCT ORDERABLES - DEV ICE Final Result Performing Organization Address [facility] de Phone Number [facility] [place] [address] * XR Hand Right 1 View (08/26/2024 2:21 PM SCALING MACHINE OPERATOR) Anatomical Region Laterality Modality Hand Right Computed Radiogr aphy 08/26/2024 3:03 PM SCALING MACHINE OPERATOR Impressions 08/26/2024 3:03 PM SCALING MACHINE OPERATOR 1. Mild bilateral scapholunate interval widening. This could be further evaluated with clenched fist views of both hands, and dedicated lateral radiographs of both wrists with attention to technique to better evaluate alignment. 2. Bilateral wrists chondrocalcinosis. 3. 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 Electronically signed by: Luis M Rogers D.O. Narrative 08/26/2024 3:03 PM SCALING MACHINE OPERATOR EXAMINATION: XR HAND LEFT 3 OR MORE VIEWS, XR HAND RIGHT 1 VIEW HISTORY: pain FINDINGS: Comparison is made to 08/25/2024 radiographs of the right hand. Single view evaluation of the right hand with redemonstration of severe base of thumb and [id number] triscaphe osteoarthritis as well as polyarticular interphalangeal mild and moderate osteoarthritis. Chondrocalcinosis. The previously demonstrated mild widening of the scapholunate interval on the report radiograph is not well profiled on provided view. No acute fracture within the limitations a single view imaging. 3 views of the left hand demonstrate mild widening of the left scapholunate interval measuring 0.4 cm, similar to that previously seen on the right. Left wrist chondrocalcinosis. Fragmented styloid process with corticated ossific body, likely represent sequela of remote injury. Moderate base of thumb carpometacarpal and mild triscaphe osteoarthritis. Mild scattered interphalangeal and thumb metacarpal phalangeal osteoarthritis. Procedure Note Luis M Rogers, DO - 08/26/2024 EXAMINATION: XR HAND LEFT 3 OR MORE VIEWS, XR HAND RIGHT 1 VIEW HISTORY: pain FINDINGS: Comparison is made to 08/25/2024 radiographs of the right hand. Single view evaluation of the right hand with redemonstration of severe base of thumb and [id number] triscaphe osteoarthritis as well as polyarticular interphalangeal mild and moderate osteoarthritis. Chondrocalcinosis. The previously demonstrated mild widening of the scapholunate interval on the report radiograph is not well profiled on provided view. No acute fracture within the limitations a single view imaging. 3 views of the left hand demonstrate mild widening of the left scapholunate interval measuring 0.4 cm, similar to that previously seen on the right. Left wrist chondrocalcinosis. Fragmented styloid process with corticated ossific body, likely represent sequela of remote injury. Moderate base of thumb carpometacarpal and mild triscaphe osteoarthritis. Mild scattered interphalangeal and thumb metacarpal phalangeal osteoarthritis. IMPRESSION: 1. Mild bilateral scapholunate interval widening. This could be further evaluated with clenched fist views of both hands, and dedicated lateral radiographs of both wrists with attention to technique to better evaluate alignment. 2. Bilateral wrists chondrocalcinosis. 3. 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 Electronically signed by: Luis M Rogers D.O. us Tashi Parisi MD IMG XR PROCEDURES Final R esult * XR Hand Left 3 or More Views (08/26/2024 2:21 PM SCALING MACHINE OPERATOR) Anatomical Region Laterality Modality Upper Extremities, Hand Left Computed Radiography 08/26/2024 3:03 PM SCALING MACHINE OPERATOR Impressions 08/26/2024 3:03 PM SCALING MACHINE OPERATOR 1. Mild bilateral scapholunate interval widening. This could be further evaluated with clenched fist views of both hands, and dedicated lateral radiographs of both wrists with attention to technique to better evaluate alignment. 2. Bilateral wrists chondrocalcinosis. 3. 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 Electronically signed by: Luis M Rogers D.O. Narrative 08/26/2024 3:03 PM SCALING MACHINE OPERATOR EXAMINATION: XR HAND LEFT 3 OR MORE VIEWS, XR HAND RIGHT 1 VIEW HISTORY: pain FINDINGS: Comparison is made to 08/25/2024 radiographs of the right hand. Single view evaluation of the right hand with redemonstration of severe base of thumb and [id number] triscaphe osteoarthritis as well as polyarticular interphalangeal mild and moderate osteoarthritis. Chondrocalcinosis. The previously demonstrated mild widening of the scapholunate interval on the report radiograph is not well profiled on provided view. No acute fracture within the limitations a single view imaging. 3 views of the left hand demonstrate mild widening of the left scapholunate interval measuring 0.4 cm, similar to that previously seen on the right. Left wrist chondrocalcinosis. Fragmented styloid process with corticated ossific body, likely represent sequela of remote injury. Moderate base of thumb carpometacarpal and mild triscaphe osteoarthritis. Mild scattered interphalangeal and thumb metacarpal phalangeal osteoarthritis. Procedure Note Luis M Rogers, DO - 08/26/2024 EXAMINATION: XR HAND LEFT 3 OR MORE VIEWS, XR HAND RIGHT 1 VIEW HISTORY: pain FINDINGS: Comparison is made to 08/25/2024 radiographs of the right hand. Single view evaluation of the right hand with redemonstration of severe base of thumb and ahsj-[id number] triscaphe osteoarthritis as well as polyarticular interphalangeal mild and moderate osteoarthritis. Chondrocalcinosis. The previously demonstrated mild widening of the scapholunate interval on the report radiograph is not well profiled on provided view. No acute fracture within the limitations a single view imaging. 3 views of the left hand demonstrate mild widening of the left scapholunate interval measuring 0.4 cm, similar to that previously seen on the right. Left wrist chondrocalcinosis. Fragmented styloid process with corticated ossific body, likely represent sequela of remote injury. Moderate base of thumb carpometacarpal and mild triscaphe osteoarthritis. Mild scattered interphalangeal and thumb metacarpal phalangeal osteoarthritis. IMPRESSION: 1. Mild bilateral scapholunate interval widening. This could be further evaluated with clenched fist views of both hands, and dedicated lateral radiographs of both wrists with attention to technique to better evaluate alignment. 2. Bilateral wrists chondrocalcinosis. 3. 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 Electronically signed by: Luis M Rogers D.O. Radha Kirk CAMERA REPAIR TECHNICIAN IMG XR PROCEDURES Fi nal Result * (ABNORMAL) POCT glucose (08/26/2024 12:22 PM SCALING MACHINE OPERATOR) [facility] Glucose, POC 227(H) 70 - 199 mg/dL Comment:Glu2: RN/ Notified Glucose comment 1 Glu2: LUCY/ Notified ROCHELLE [facility] Blood 08/26/2024 12:2 2 PM SCALING MACHINE OPERATOR 08/26/2024 12:22 PM SCALING MACHINE OPERATOR Tashi Parisi MD LAB POCT ORDERABLES - DEV ICE Final Result [facility] [place] [address] * (ABNORMAL) eGFR (08/26/2024 10:26 AM SCALING MACHINE OPERATOR) [facility] eGFR 43(L) >=60 mL/min/1. 73 m2 Comment: Interpretive Data Reference Interval Normal >/= 90 mL/min/1.73m2 Mildly decreased* 60 - 89 mL/min/1.73m2 Mildly to moderately decreased 45 - 59 mL/min/1.73m2 Moderately to severely decreased 30 - 44 mL/min/1.73m2 Severely decreased 15 - 29 mL/min/1.73m2 Kidney Failure < 15 mL/min/1.73m2 *Relative to young adult level Estimated glomerular filtration rate is determined by the 2020 CKD-EPI equation recommended by the National Kidney Foundation (A Unifying Approach to GFR Estimation: Recommendations of the NKF-ASK Task Force on Reassessing the Inclusion of Race in Diagnosing Kidney Disease, JASN 2020). The CKD-EPI equation should not be used for patients with unstable renal function and has not been validated in children and those over 70. Current interpretive data was last reviewed 2021. Blood 08/26/2024 10:2 6 AM SCALING MACHINE OPERATOR 08/26/2024 11:05 AM SCALING MACHINE OPERATOR Radha Kirk LAB BLOOD ORDERABLES Final Result Performing Organization Address City/[facility] Co de Phone Number [facility] [place] [address] * Type and screen (08/26/2024 10:26 AM SCALING MACHINE OPERATOR) Pathologist [facility] Markos, indirect Negative ABO Rh O Positive [facility] Blood 08/26/2024 10:2 6 AM SCALING MACHINE OPERATOR 08/26/2024 10:51 AM SCALING MACHINE OPERATOR Narrative [facility] - 08/26/2024 12:15 PM SCALING MACHINE OPERATOR Has the patient had Daratumumab or Isatuximab in the past 6 months?->Unknown Radha Kirk CAMERA REPAIR TECHNICIAN LAB BLOOD BANK TEST ORDERABLES Final Result Performing Organization Address City/[facility]/ZIP Co de Phone Number [facility] [place] [address] * (ABNORMAL) Basic metabolic panel (08/26/2024 10:26 AM SCALING MACHINE OPERATOR) Pathologist [facility] Sodium 141 135 - 145 mmol/L Potassium, pl 3.4 3.3 - 4.9 mmol/L [facility] Chloride 109 97 - 110 mmol/L [facility] CO2 23 22 - 32 mmol/L [facility] Anion gap 9 2 - 15 mmol/L [facility] BUN 37(H) 6 - 25 mg/dL [facility] Creatinine 1.23(H) 0.60 - 1.10 mg/dL [facility] Glucose 235(H) 70 - 199 mg/dL [facility] Comment: Interpretive Data Fasting glucose >/= 126 mg/dl is diagnostic for diabetes. Fasting is defined as no caloric intake for at least 8 hours. Fasting glucose between 100 mg/dl to 125 mg/dl is diagnostic of prediabetes. In a patient with classic symptoms of hyperglycemia or hyperglycemic crisis, a random glucose >/= 200 mg/dl is diagnostic for diabetes. In the absence of unequivocal hyperglycemia, results should be confirmed by repeat testing. The classification and Diagnosis of Diabetes Diabetes Care 2021; 46: S19-S40. Current interpretive data was last revised 2022. Calcium 8.9 8.5 - 10.3 mg/dL [facility] Blood 08/26/2024 10:2 6 AM SCALING MACHINE OPERATOR 08/26/2024 10:48 AM SCALING MACHINE OPERATOR us Radha Kirk NP LAB BLOOD ORDERABLES Final Result Performing Organization Address City/[facility]/ZIP Co de Phone Number [facility] [place] [place] [address] * POCT glucose (08/26/2024 8:12 AM SCALING MACHINE OPERATOR) [facility] Signature Glucose, POC 163 70 - 199 mg/dL Blood 08/26/2024 8:12 AM SCALING MACHINE OPERATOR 08/26/2024 8:12 AM SCALING MACHINE OPERATOR Tashi Parisi MD LAB POCT ORDERABLES - DEV ICE Final Result Performing Organization Address [facility]/ZIP Co de Phone Number [facility] [place] [address] * (ABNORMAL) Differential, auto (08/26/2024 5:17 AM SCALING MACHINE OPERATOR) Neutrophil abs 7.3(H) 1.5 - 6.5 K/cumm Imm gran abs 0.0 0.0 - 0.1 K/cumm [facility] Lymphocyte abs 1.6 0.8 - 3.3 K/cumm [facility] Monocyte abs 1.1(H) 0.2 - 0.8 K/cumm [facility] Eosinophil abs 0.2 0.0 - 0.5 K/cumm [facility] Basophil abs 0.1 0.0 - 0.1 K/cumm [facility] Neutrophil pct 70.9 % [facility] Comment: Interpretive Data Percent cell count reference ranges are not reported, since discordance with absolute values may lead to misinterpretation of CBC data. Current Interpretive Data was last revised on 2017. Imm gran pct 0.4 % [facility] Comment: Interpretive Data Percent cell count reference ranges are not reported, since discordance with absolute values may lead to misinterpretation of CBC data. Current Interpretive Data was last revised on 2017. Lymphocyte pct 15.2 % [facility] Comment: Interpretive Data Percent cell count reference ranges are not reported, since discordance with absolute values may lead to misinterpretation of CBC data. Current Interpretive Data was last revised on 2017. Monocyte pct 11.0 % [facility] Comment: Interpretive Data Percent cell count reference ranges are not reported, since discordance with absolute values may lead to misinterpretation of CBC data. Current Interpretive Data was last revised on 2017. Eosinophil pct 1.9 % [facility] Comment: Interpretive Data Percent cell count reference ranges are not reported, since discordance with absolute values may lead to misinterpretation of CBC data. Current Interpretive Data was last revised on 2017. Basophil pct 0.6 % [facility] Comment: Interpretive Data Percent cell count reference ranges are not reported, since discordance with absolute values may lead to misinterpretation of CBC data. Current Interpretive Data was last revised on 2017. Blood 08/26/2024 5:17 AM SCALING MACHINE OPERATOR 08/26/2024 5:24 AM SCALING MACHINE OPERATOR Radha Kirk CAMERA REPAIR TECHNICIAN LAB BLOOD ORDERABLES Final Result Performing Organization Address City/[facility]/ZIP Co de Phone Number [facility] [place] [address] * (ABNORMAL) CBC with auto differential (08/26/2024 5:17 AM SCALING MACHINE OPERATOR) [facility] WBC 10.2(H) 3.8 - 9.9 K/cumm Hgb 8.5(L) 11.9 - 15.5 g/dL [facility] Hct 25.5(L) 35.6 - 45.5 % [facility] Plt 166 150 - 400 K/cumm [facility] MPV 9.4 9.1 - 12.3 fL [facility] RBC 2.92(L) 3.90 - 5.20 M/cumm [facility] MCV 87.3 81.3 - 96.4 fL [facility] MCH 29.1 27.1 - 33.3 pg [facility] MCHC 33.3 32.3 - 35.7 g/dL [facility] RDW CV 15.0(H) 11.1 - 14.9 % [facility] RDW SD 47.7 35.7 - 48.1 fL [facility] NRBC abs 0.00 0.00 - 0.01 K/cumm [facility] Blood 08/26/2024 5:17 AM SCALING MACHINE OPERATOR 08/26/2024 5:24 AM SCALING MACHINE OPERATOR us Radha Kirk CAMERA REPAIR TECHNICIAN LAB BLOOD ORDERABLES Final Result [facility] [place] [address] * (ABNORMAL) eGFR (08/26/2024 12:32 AM SCALING MACHINE OPERATOR) [facility] eGFR 34(L) >=60 mL/min/1. 73 m2 Comment: Interpretive Data Reference Interval Normal >/= 90 mL/min/1.73m2 Mildly decreased* 60 - 89 mL/min/1.73m2 Mildly to moderately decreased 45 - 59 mL/min/1.73m2 Moderately to severely decreased 30 - 44 mL/min/1.73m2 Severely decreased 15 - 29 mL/min/1.73m2 Kidney Failure < 15 mL/min/1.73m2 *Relative to young adult level Estimated glomerular filtration rate is determined by the 2020 CKD-EPI equation recommended by the National Kidney Foundation (A Unifying Approach to GFR Estimation: Recommendations of the NKF-ASK Task Force on Reassessing the Inclusion of Race in Diagnosing Kidney Disease, JASN 2020). The CKD-EPI equation should not be used for patients with unstable renal function and has not been validated in children and those over 70. Current interpretive data was last reviewed 2021. Blood 08/26/2024 12:3 2 AM SCALING MACHINE OPERATOR 08/26/2024 12:47 AM SCALING MACHINE OPERATOR us Radha Kirk CAMERA REPAIR TECHNICIAN LAB BLOOD ORDERABLES Final Result [facility] [place] [address] * (ABNORMAL) Differential, auto (08/26/2024 12:32 AM SCALING MACHINE OPERATOR) Neutrophil abs 7.7(H) 1.5 - 6.5 K/cumm Imm gran abs 0.0 0.0 - 0.1 K/cumm [facility] Lymphocyte abs 1.7 0.8 - 3.3 K/cumm [facility] Monocyte abs 1.4(H) 0.2 - 0.8 K/cumm [facility] Eosinophil abs 0.1 0.0 - 0.5 K/cumm [facility] Basophil abs 0.0 0.0 - 0.1 K/cumm [facility] Neutrophil pct 69.5 % [facility] Comment: Interpretive Data Percent cell count reference ranges are not reported, since discordance with absolute values may lead to misinterpretation of CBC data. Current Interpretive Data was last revised on 2017. Imm gran pct 0.4 % [facility] Comment: Interpretive Data Percent cell count reference ranges are not reported, since discordance with absolute values may lead to misinterpretation of CBC data. Current Interpretive Data was last revised on 2017. Lymphocyte pct 15.8 % [facility] Comment: Interpretive Data Percent cell count reference ranges are not reported, since discordance with absolute values may lead to misinterpretation of CBC data. Current Interpretive Data was last revised on 2017. Monocyte pct 12.7 % [facility] Comment: Interpretive Data Percent cell count reference ranges are not reported, since discordance with absolute values may lead to misinterpretation of CBC data. Current Interpretive Data was last revised on 2017. Eosinophil pct 1.2 % [facility] Comment: Interpretive Data Percent cell count reference ranges are not reported, since discordance with absolute values may lead to misinterpretation of CBC data. Current Interpretive Data was last revised on 2017. Basophil pct 0.4 % [facility] Comment: Interpretive Data Percent cell count reference ranges are not reported, since discordance with absolute values may lead to misinterpretation of CBC data. Current Interpretive Data was last revised on 2017. Blood 08/26/2024 12:3 2 AM SCALING MACHINE OPERATOR 08/26/2024 12:47 AM SCALING MACHINE OPERATOR us Radha Kirk CAMERA REPAIR TECHNICIAN LAB BLOOD ORDERABLES Final Result [facility] [place] [address] * (ABNORMAL) CBC with auto differential (08/26/2024 12:32 AM SCALING MACHINE OPERATOR) WBC 11.0(H) 3.8 - 9.9 K/cumm Hgb 8.3(L) 11.9 - 15.5 g/dL [facility] Hct 24.8(L) 35.6 - 45.5 % [facility] Plt 157 150 - 400 K/cumm [facility] MPV 10.1 9.1 - 12.3 fL [facility] RBC 2.80(L) 3.90 - 5.20 M/cumm [facility] MCV 88.6 81.3 - 96.4 fL [facility] MCH 29.6 27.1 - 33.3 pg [facility] MCHC 33.5 32.3 - 35.7 g/dL [facility] RDW CV 14.9 11.1 - 14.9 % [facility] RDW SD 48.0 35.7 - 48.1 fL [facility] NRBC abs 0.00 0.00 - 0.01 K/cumm [facility] Blood 08/26/2024 12:3 2 AM SCALING MACHINE OPERATOR 08/26/2024 12:47 AM SCALING MACHINE OPERATOR Radha Kirk CAMERA REPAIR TECHNICIAN LAB BLOOD ORDERABLES Final Result Performing Organization Address [facility] Co de Phone Number [facility] [place] [address] * (ABNORMAL) Phosphorus (08/26/2024 12:32 AM SCALING MACHINE OPERATOR) Phosphorus, pl 2.2(L) 2.3 - 4.5 mg/dL Blood 08/26/2024 12:3 2 AM SCALING MACHINE OPERATOR 08/26/2024 12:47 AM SCALING MACHINE OPERATOR Radha Kirk CAMERA REPAIR TECHNICIAN LAB BLOOD ORDERABLES Final Result Performing Organization Address [facility] de Phone Number [facility] [place] [address] * Magnesium (08/26/2024 12:32 AM SCALING MACHINE OPERATOR) Magnesium 1.8 1.4 - 2.5 mg/dL Blood 08/26/2024 12:3 2 AM SCALING MACHINE OPERATOR 08/26/2024 12:47 AM SCALING MACHINE OPERATOR Radha Kirk CAMERA REPAIR TECHNICIAN LAB BLOOD ORDERABLES Final Result Performing Organization Address [facility] Co de Phone Number [facility] [place] [address] * (ABNORMAL) Basic metabolic panel (08/26/2024 12:32 AM SCALING MACHINE OPERATOR) [facility] Sodium 136 135 - 145 mmol/L Potassium, pl 3.5 3.3 - 4.9 mmol/L [facility] Chloride 110 97 - 110 mmol/L [facility] CO2 19(L) 22 - 32 mmol/L [facility] Anion gap 7 2 - 15 mmol/L [facility] BUN 45(H) 6 - 25 mg/dL [facility] Creatinine 1.50(H) 0.60 - 1.10 mg/dL [facility] Glucose 139 70 - 199 mg/dL [facility] Comment: Interpretive Data Fasting glucose >/= 126 mg/dl is diagnostic for diabetes. Fasting is defined as no caloric intake for at least 8 hours. Fasting glucose between 100 mg/dl to 125 mg/dl is diagnostic of prediabetes. In a patient with classic symptoms of hyperglycemia or hyperglycemic crisis, a random glucose >/= 200 mg/dl is diagnostic for diabetes. In the absence of unequivocal hyperglycemia, results should be confirmed by repeat testing. The classification and Diagnosis of Diabetes Diabetes Care 2021; 46: S19-S40. Current interpretive data was last revised 2022. Calcium 8.6 8.5 - 10.3 mg/dL [facility] Blood 08/26/2024 12:3 2 AM SCALING MACHINE OPERATOR 08/26/2024 12:47 AM SCALING MACHINE OPERATOR Radha Kirk CAMERA REPAIR TECHNICIAN LAB BLOOD ORDERABLES Final Result [facility] [place] [address] * (ABNORMAL) Differential, auto (08/25/2024 11:33 PM SCALING MACHINE OPERATOR) [facility] Neutrophil abs 7.5(H) 1.5 - 6.5 K/cumm Imm gran abs 0.1 0.0 - 0.1 K/cumm [facility] Lymphocyte abs 1.7 0.8 - 3.3 K/cumm [facility] Monocyte abs 1.4(H) 0.2 - 0.8 K/cumm [facility] Eosinophil abs 0.1 0.0 - 0.5 K/cumm [facility] Basophil abs 0.0 0.0 - 0.1 K/cumm [facility] Neutrophil pct 69.0 % [facility] Comment: Interpretive Data Percent cell count reference ranges are not reported, since discordance with absolute values may lead to misinterpretation of CBC data. Current Interpretive Data was last revised on 2017. Imm gran pct 0.7 % [facility] Comment: Interpretive Data Percent cell count reference ranges are not reported, since discordance with absolute values may lead to misinterpretation of CBC data. Current Interpretive Data was last revised on 2017. Lymphocyte pct 16.0 % [facility] Comment: Interpretive Data Percent cell count reference ranges are not reported, since discordance with absolute values may lead to misinterpretation of CBC data. Current Interpretive Data was last revised on 2017. Monocyte pct 12.7 % [facility] Comment: Interpretive Data Percent cell count reference ranges are not reported, since discordance with absolute values may lead to misinterpretation of CBC data. Current Interpretive Data was last revised on 2017. Eosinophil pct 1.2 % [facility] Comment: Interpretive Data Percent cell count reference ranges are not reported, since discordance with absolute values may lead to misinterpretation of CBC data. Current Interpretive Data was last revised on 2017. Basophil pct 0.4 % [facility] Comment: Interpretive Data Percent cell count reference ranges are not reported, since discordance with absolute values may lead to misinterpretation of CBC data. Current Interpretive Data was last revised on 2017. Blood 08/25/2024 11:3 3 PM SCALING MACHINE OPERATOR 08/26/2024 12:47 AM SCALING MACHINE OPERATOR us Radha Kirk NP LAB BLOOD ORDERABLES Final Result [facility] [place] [address] * (ABNORMAL) CBC with auto differential (08/25/2024 11:33 PM SCALING MACHINE OPERATOR) WBC 10.9(H) 3.8 - 9.9 K/cumm Hgb 8.2(L) 11.9 - 15.5 g/dL [facility] Hct 25.1(L) 35.6 - 45.5 % [facility] Plt 160 150 - 400 K/cumm [facility] MPV 9.9 9.1 - 12.3 fL [facility] RBC 2.83(L) 3.90 - 5.20 M/cumm [facility] MCV 88.7 81.3 - 96.4 fL [facility] MCH 29.0 27.1 - 33.3 pg [facility] MCHC 32.7 32.3 - 35.7 g/dL [facility] RDW CV 14.9 11.1 - 14.9 % [facility] RDW SD 48.1 35.7 - 48.1 fL [facility] NRBC abs 0.00 0.00 - 0.01 K/cumm [facility] Blood 08/25/2024 11:3 3 PM SCALING MACHINE OPERATOR 08/26/2024 12:47 AM SCALING MACHINE OPERATOR us Radha Kirk CAMERA REPAIR TECHNICIAN LAB BLOOD ORDERABLES Final Result [facility] [place] [address] * Critical Care (08/25/2024 9:45 PM SCALING MACHINE OPERATOR) Narrative Felice Goyal MD - 08/25/2024 9:45 PM SCALING MACHINE OPERATOR Felice Goyal MD 08/25/2024 9:46 PM Critical Care Performed by: Felice Goyal MD Authorized by: Felice Goyal MD Critical care provider statement: As reflected in the history, physical exam, orders, notes, and/or MDM, I was personally present while the patient was critically ill and provided critical care services for 20 minutes, excluding time involved in separately billable procedures. Critical care was necessary to treat or prevent imminent or life-threatening deterioration of the following condition(s): severe long-bone fracture Critical care was time spent by me providing the following: continuous telemetry, continuous pulse oximetry, interpretation of bedside monitors, imaging, and arterial/venous lab draws and resuscitation with fluids serial neurovascular exams, management of limb weight bearing status and acute fracture care acute pain control I provided emergent necessary critical care medicine services to this patient. I ordered and reviewed test results and/or imaging studies. I spent time discussing the management of this critically ill patient with consultants and the medical staff. I spent time discussing the management and therapeutic options for this critically ill patient with the patient themselves or with the appropriate designated surrogate decision-maker. I spent time documenting in the medical record. I admitted this patient to a continuous cardiac monitored bed. us Feliec Goyal MD IN CLINIC/BEDSIDE [facility] Final Result * POCT glucose (08/25/2024 9:13 PM SCALING MACHINE OPERATOR) Glucose, POC 194 70 - 199 mg/dL Blood 08/25/2024 9:13 PM SCALING MACHINE OPERATOR 08/25/2024 9:13 PM SCALING MACHINE OPERATOR us Tashi Parisi MD LAB POCT ORDERABLES - DEV ICE Final Result Performing Organization Address [facility]/ZIP Co de Phone Number [facility] [place] [place] [address] * (ABNORMAL) POCT glucose (08/25/2024 7:49 PM SCALING MACHINE OPERATOR) Glucose, POC 238(H) 70 - 199 mg/dL Blood 08/25/2024 7:49 PM SCALING MACHINE OPERATOR 08/25/2024 7:49 PM SCALING MACHINE OPERATOR us Tashi Parisi MD LAB POCT ORDERABLES - DEV ICE Final Result Performing Organization Address [facility] Co de Phone Number [facility] [place] [address] * POCT glucose (08/25/2024 5:55 PM SCALING MACHINE OPERATOR) Glucose, POC 150 70 - 199 mg/dL Blood 08/25/2024 5:55 PM SCALING MACHINE OPERATOR 08/25/2024 5:55 PM SCALING MACHINE OPERATOR Tashi Parisi MD LAB POCT ORDERABLES - DEV ICE Final Result [facility] [place] [address] * XR Hand Right 3 or More Views (08/25/2024 2:50 PM SCALING MACHINE OPERATOR) Anatomical Region Laterality Modality Upper Extremities, Hand Right Computed Radiography 08/25/2024 4:42 PM SCALING MACHINE OPERATOR Impressions 08/25/2024 4:55 PM SCALING MACHINE OPERATOR 1. 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 2. Mild scapholunate interval widening. Dictated by: Carlos Min MD The radiology attending physician has personally reviewed this study, and had reviewed and/or edited this written report and agrees with it. Electronically signed by: Félix Burdick M.D. Narrative 08/25/2024 4:55 PM SCALING MACHINE OPERATOR EXAMINATION: XR WRIST RIGHT 3 OR MORE VIEWS, XR HAND RIGHT 3 OR MORE VIEWS HISTORY: 83-year-old female with right wrist pain FINDINGS: 3 views of the hand and 3 views of the wrist are interpreted without comparison. Mild radiocarpal osteoarthritis with chondrocalcinosis. There is moderate 1st carpometacarpal joint osteoarthritis. Alignment is within normal limits. Mild scapholunate interval widening. Procedure Note Félix Burdick MD - 08/25/2024 EXAMINATION: XR WRIST RIGHT 3 OR MORE VIEWS, XR HAND RIGHT 3 OR MORE VIEWS HISTORY: 83-year-old female with right wrist pain FINDINGS: 3 views of the hand and 3 views of the wrist are interpreted without comparison. Mild radiocarpal osteoarthritis with chondrocalcinosis. There is moderate 1st carpometacarpal joint osteoarthritis. Alignment is within normal limits. Mild scapholunate interval widening. IMPRESSION: 1. 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 2. Mild scapholunate interval widening. Dictated by: Carlos Min MD The radiology attending physician has personally reviewed this study, and had reviewed and/or edited this written report and agrees with it. Electronically signed by: Félix Burdick M.D. us Radha Kirk CAMERA REPAIR TECHNICIAN IMG XR PROCEDURES Fi nal Result * XR Wrist Right 3 or More Views (08/25/2024 2:50 PM SCALING MACHINE OPERATOR) Anatomical Region Laterality Modality Upper Extremities, Wrist Right Compute d Radiography 08/25/2024 4:42 PM SCALING MACHINE OPERATOR Impressions 08/25/2024 4:55 PM SCALING MACHINE OPERATOR 1. 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 2. Mild scapholunate interval widening. Dictated by: Carlos Min MD The radiology attending physician has personally reviewed this study, and had reviewed and/or edited this written report and agrees with it. Electronically signed by: Félix Burdick M.D. Narrative 08/25/2024 4:55 PM SCALING MACHINE OPERATOR EXAMINATION: XR WRIST RIGHT 3 OR MORE VIEWS, XR HAND RIGHT 3 OR MORE VIEWS HISTORY: 83-year-old female with right wrist pain FINDINGS: 3 views of the hand and 3 views of the wrist are interpreted without comparison. Mild radiocarpal osteoarthritis with chondrocalcinosis. There is moderate 1st carpometacarpal joint osteoarthritis. Alignment is within normal limits. Mild scapholunate interval widening. Procedure Note Félix Burdick MD - 08/25/2024 EXAMINATION: XR WRIST RIGHT 3 OR MORE VIEWS, XR HAND RIGHT 3 OR MORE VIEWS HISTORY: 83-year-old female with right wrist pain FINDINGS: 3 views of the hand and 3 views of the wrist are interpreted without comparison. Mild radiocarpal osteoarthritis with chondrocalcinosis. There is moderate 1st carpometacarpal joint osteoarthritis. Alignment is within normal limits. Mild scapholunate interval widening. IMPRESSION: 1. 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 2. Mild scapholunate interval widening. Dictated by: Carlos Min MD The radiology attending physician has personally reviewed this study, and had reviewed and/or edited this written report and agrees with it. Electronically signed by: Félix Burdick M.D. us Radha Kirk NP IMG XR PROCEDURES Fi nal Result * (ABNORMAL) eGFR (08/25/2024 1:30 PM SCALING MACHINE OPERATOR) eGFR 35(L) >=60 mL/min/1. 73 m2 Comment: Interpretive Data Reference Interval Normal >/= 90 mL/min/1.73m2 Mildly decreased* 60 - 89 mL/min/1.73m2 Mildly to moderately decreased 45 - 59 mL/min/1.73m2 Moderately to severely decreased 30 - 44 mL/min/1.73m2 Severely decreased 15 - 29 mL/min/1.73m2 Kidney Failure < 15 mL/min/1.73m2 *Relative to young adult level Estimated glomerular filtration rate is determined by the 2020 CKD-EPI equation recommended by the National Kidney [employer] (A Unifying Approach to GFR Estimation: Recommendations of the NKF-ASK Task Force on Reassessing the Inclusion of Race in Diagnosing Kidney Disease, JASN 2020). The CKD-EPI equation should not be used for patients with unstable renal function and has not been validated in children and those over 70. Current interpretive data was last reviewed 2021. Blood 08/25/2024 1:30 PM SCALING MACHINE OPERATOR 08/25/2024 2:39 PM SCALING MACHINE OPERATOR us Felice Goyal MD LAB BLOOD ORDERABLES F inal Result [facility] [place] [address] * (ABNORMAL) Differential, auto (08/25/2024 1:30 PM SCALING MACHINE OPERATOR) Neutrophil abs 7.8(H) 1.5 - 6.5 K/cumm Imm gran abs 0.1 0.0 - 0.1 K/cumm [facility] Lymphocyte abs 1.2 0.8 - 3.3 K/cumm [facility] Monocyte abs 0.9(H) 0.2 - 0.8 K/cumm [facility] Eosinophil abs 0.0 0.0 - 0.5 K/cumm [facility] Basophil abs 0.0 0.0 - 0.1 K/cumm [facility] Neutrophil pct 78.3 % [facility] Comment: Interpretive Data Percent cell count reference ranges are not reported, since discordance with absolute values may lead to misinterpretation of CBC data. Current Interpretive Data was last revised on 2017. Imm gran pct 0.6 % [facility] Comment: Interpretive Data Percent cell count reference ranges are not reported, since discordance with absolute values may lead to misinterpretation of CBC data. Current Interpretive Data was last revised on 2017. Lymphocyte pct 12.0 % [facility] Comment: Interpretive Data Percent cell count reference ranges are not reported, since discordance with absolute values may lead to misinterpretation of CBC data. Current Interpretive Data was last revised on 2017. Monocyte pct 8.9 % [facility] Comment: Interpretive Data Percent cell count reference ranges are not reported, since discordance with absolute values may lead to misinterpretation of CBC data. Current Interpretive Data was last revised on 2017. Eosinophil pct 0.0 % [facility] Comment: Interpretive Data Percent cell count reference ranges are not reported, since discordance with absolute values may lead to misinterpretation of CBC data. Current Interpretive Data was last revised on 2017. Basophil pct 0.2 % [facility] Comment: Interpretive Data Percent cell count reference ranges are not reported, since discordance with absolute values may lead to misinterpretation of CBC data. Current Interpretive Data was last revised on 2017. Blood 08/25/2024 1:30 PM SCALING MACHINE OPERATOR 08/25/2024 2:38 PM SCALING MACHINE OPERATOR us Radha Kirk NP LAB BLOOD ORDERABLES Final Result [facility] [place] [address] * (ABNORMAL) CBC with auto differential (08/25/2024 1:30 PM SCALING MACHINE OPERATOR) [facility] WBC 10.0(H) 3.8 - 9.9 K/cumm Hgb 8.6(L) 11.9 - 15.5 g/dL [facility] Hct 26.5(L) 35.6 - 45.5 % [facility] Plt 168 150 - 400 K/cumm [facility] MPV 10.2 9.1 - 12.3 fL [facility] RBC 2.94(L) 3.90 - 5.20 M/cumm [facility] MCV 90.1 81.3 - 96.4 fL [facility] MCH 29.3 27.1 - 33.3 pg [facility] MCHC 32.5 32.3 - 35.7 g/dL [facility] RDW CV 14.7 11.1 - 14.9 % [facility] RDW SD 48.7(H) 35.7 - 48.1 fL [facility] NRBC abs 0.00 0.00 - 0.01 K/cumm [facility] Blood 08/25/2024 1:30 PM SCALING MACHINE OPERATOR 08/25/2024 2:38 PM SCALING MACHINE OPERATOR us Radha Kirk NP LAB BLOOD ORDERABLES Final Result [facility] [place] [address] * Phosphorus (08/25/2024 1:30 PM SCALING MACHINE OPERATOR) [facility] Phosphorus, pl 3.5 2.3 - 4.5 mg/dL Blood 08/25/2024 1:30 PM SCALING MACHINE OPERATOR 08/25/2024 2:38 PM SCALING MACHINE OPERATOR us Sharan De La Vega MD LAB BLOOD ORDERABLES Fin al Result [facility] [place] [address] * Magnesium (08/25/2024 1:30 PM SCALING MACHINE OPERATOR) Pathologist [facility] Magnesium 1.6 1.4 - 2.5 mg/dL Blood 08/25/2024 1:30 PM SCALING MACHINE OPERATOR 08/25/2024 2:38 PM SCALING MACHINE OPERATOR Sharan De La Vega MD LAB BLOOD ORDERABLES Fin al Result [facility] [place] [address] * (ABNORMAL) Basic metabolic panel (08/25/2024 1:30 PM SCALING MACHINE OPERATOR) [facility] Sodium 138 135 - 145 mmol/L Potassium, pl 4.4 3.3 - 4.9 mmol/L [facility] Chloride 109 97 - 110 mmol/L [facility] CO2 19(L) 22 - 32 mmol/L [facility] Anion gap 10 2 - 15 mmol/L [facility] BUN 39(H) 6 - 25 mg/dL [facility] Creatinine 1.46(H) 0.60 - 1.10 mg/dL [facility] Glucose 214(H) 70 - 199 mg/dL [facility] Comment: Interpretive Data Fasting glucose >/= 126 mg/dl is diagnostic for diabetes. Fasting is defined as no caloric intake for at least 8 hours. Fasting glucose between 100 mg/dl to 125 mg/dl is diagnostic of prediabetes. In a patient with classic symptoms of hyperglycemia or hyperglycemic crisis, a random glucose >/= 200 mg/dl is diagnostic for diabetes. In the absence of unequivocal hyperglycemia, results should be confirmed by repeat testing. The classification and Diagnosis of Diabetes Diabetes Care 2021; 46: S19-S40. Current interpretive data was last revised 2022. Calcium 8.6 8.5 - 10.3 mg/dL [facility] Blood 08/25/2024 1:30 PM SCALING MACHINE OPERATOR 08/25/2024 2:38 PM SCALING MACHINE OPERATOR Sharan De La Vega MD LAB BLOOD ORDERABLES Fin al Result Performing Organization Address [facility] de Phone Number [facility] [place] [address] * (ABNORMAL) POCT glucose (08/25/2024 11:42 AM SCALING MACHINE OPERATOR) Glucose, POC 206(H) 70 - 199 mg/dL Blood 08/25/2024 11:4 2 AM SCALING MACHINE OPERATOR 08/25/2024 11:42 AM SCALING MACHINE OPERATOR Tashi Parisi MD LAB POCT ORDERABLES - DEV ICE Final Result Performing Organization Address [facility] de Phone Number [facility] [place] [address] * (ABNORMAL) POCT glucose (08/25/2024 8:10 AM SCALING MACHINE OPERATOR) Glucose, POC 237(H) 70 - 199 mg/dL Blood 08/25/2024 8:10 AM SCALING MACHINE OPERATOR 08/25/2024 8:10 AM SCALING MACHINE OPERATOR Tashi Parisi MD LAB POCT ORDERABLES - DEV ICE Final Result Performing Organization Address [facility] de Phone Number [facility] [place] [address] * (ABNORMAL) Differential, auto (08/24/2024 11:36 PM SCALING MACHINE OPERATOR) Neutrophil abs 12.8(H) 1.5 - 6.5 K/cumm Imm gran abs 0.1 0.0 - 0.1 K/cumm [facility] Lymphocyte abs 0.9 0.8 - 3.3 K/cumm [facility] Monocyte abs 2.1(H) 0.2 - 0.8 K/cumm [facility] Eosinophil abs 0.0 0.0 - 0.5 K/cumm [facility] Basophil abs 0.1 0.0 - 0.1 K/cumm [facility] Neutrophil pct 80.3 % [facility] Comment: Interpretive Data Percent cell count reference ranges are not reported, since discordance with absolute values may lead to misinterpretation of CBC data. Current Interpretive Data was last revised on 2017. Imm gran pct 0.4 % [facility] Comment: Interpretive Data Percent cell count reference ranges are not reported, since discordance with absolute values may lead to misinterpretation of CBC data. Current Interpretive Data was last revised on 2017. Lymphocyte pct 5.6 % [facility] Comment: Interpretive Data Percent cell count reference ranges are not reported, since discordance with absolute values may lead to misinterpretation of CBC data. Current Interpretive Data was last revised on 2017. Monocyte pct 13.3 % [facility] Comment: Interpretive Data Percent cell count reference ranges are not reported, since discordance with absolute values may lead to misinterpretation of CBC data. Current Interpretive Data was last revised on 2017. Eosinophil pct 0.1 % [facility] Comment: Interpretive Data Percent cell count reference ranges are not reported, since discordance with absolute values may lead to misinterpretation of CBC data. Current Interpretive Data was last revised on 2017. Basophil pct 0.3 % [facility] Comment: Interpretive Data Percent cell count reference ranges are not reported, since discordance with absolute values may lead to misinterpretation of CBC data. Current Interpretive Data was last revised on 2017. Blood 08/24/2024 11:3 6 PM SCALING MACHINE OPERATOR 08/24/2024 11:46 PM SCALING MACHINE OPERATOR us Davina Mckeon MD LAB BLOOD ORDERABLES Final Resul t [facility] [place] [address] * (ABNORMAL) CBC with auto differential (08/24/2024 11:36 PM SCALING MACHINE OPERATOR) WBC 16.0(H) 3.8 - 9.9 K/cumm Hgb 10.6(L) 11.9 - 15.5 g/dL [facility] Hct 32.6(L) 35.6 - 45.5 % [facility] Plt 218 150 - 400 K/cumm [facility] MPV 9.3 9.1 - 12.3 fL [facility] RBC 3.67(L) 3.90 - 5.20 M/cumm [facility] MCV 88.8 81.3 - 96.4 fL [facility] MCH 28.9 27.1 - 33.3 pg [facility] MCHC 32.5 32.3 - 35.7 g/dL [facility] RDW CV 14.5 11.1 - 14.9 % [facility] RDW SD 47.5 35.7 - 48.1 fL [facility] NRBC abs 0.00 0.00 - 0.01 K/cumm [facility] Blood 08/24/2024 11:3 6 PM SCALING MACHINE OPERATOR 08/24/2024 11:46 PM SCALING MACHINE OPERATOR Davina Mckeon MD LAB BLOOD ORDERABLES Final Resul t Performing Organization Address City/[facility]/ZIP Co de Phone Number [facility] [place] [address] * (ABNORMAL) POCT glucose (08/24/2024 11:30 PM SCALING MACHINE OPERATOR) Pathologist [facility] Glucose, POC 202(H) 70 - 199 mg/dL Blood 08/24/2024 11:3 0 PM SCALING MACHINE OPERATOR 08/24/2024 11:30 PM SCALING MACHINE OPERATOR us Tashi Parisi MD LAB POCT ORDERABLES - DEV ICE Final Result [facility] [place] [address] * (ABNORMAL) POC Blood Gas and Chemistries, Arterial - (08/24/2024 10:52 PM SCALING MACHINE OPERATOR) Pathologist [facility] pH, Art POC 7.22(L) 7.35 - 7.45 pCO2, Art POC 41 35 - 45 mmHg [facility] pO2, Art POC 160(H) 83 - 108 mmHg [facility] Na, POC 145 135 - 145 mmol/L [facility] K POC 3.3 3.3 - 4.9 mmol/L [facility] Comment: Interpretive Data Not all point of care methods assess for hemolysis. Confirm with instrument and retest K+ if not consistent with clinical signs and symptoms. Current Interpretive Data was last revised on 2023. Cl, POC 119(H) 97 - 110 mmol/L [facility] Ionized Ca, POC 5.79(H) 4.50 - 5.10 mg/dL [facility] Glucose, POC 234(H) 70 - 199 mg/dL [facility] Lactate, POC 3.0(H) 0.7 - 2.2 mmol/L [facility] SO2 (nasra) arterial 99(H) 90 - 95 % [facility] Base excess, POC -10.3 mmol/L [facility] HCO3, Art POC 17(L) 20 - 30 mmol/L [facility] Hct, POC 30.0(L) 36.3 - 45.3 % [facility] Total Hb, POC 10.1(L) 11.9 - 15.5 g/dL [facility] Blood 08/24/2024 10:5 2 PM SCALING MACHINE OPERATOR 08/24/2024 10:52 PM SCALING MACHINE OPERATOR us Tashi Parisi MD LAB POCT ORDERABLES - DEV ICE Final Result [facility] [place] [address] * (ABNORMAL) POC Blood Gas and Chemistries, Arterial - (08/24/2024 10:07 PM SCALING MACHINE OPERATOR) pH, Art POC 7.26(L) 7.35 - 7.45 pCO2, Art POC 38 35 - 45 mmHg [facility] pO2, Art POC 164(H) 83 - 108 mmHg [facility] Na, POC 144 135 - 145 mmol/L [facility] K POC 3.9 3.3 - 4.9 mmol/L [facility] Comment: Interpretive Data Not all point of care methods assess for hemolysis. Confirm with instrument and retest K+ if not consistent with clinical signs and symptoms. Current Interpretive Data was last revised on 2023. Cl, POC 118(H) 97 - 110 mmol/L [facility] Ionized Ca, POC 5.86(H) 4.50 - 5.10 mg/dL [facility] Glucose, POC 265(H) 70 - 199 mg/dL [facility] Lactate, POC 2.8(H) 0.7 - 2.2 mmol/L [facility] SO2 (nasra) arterial 99(H) 90 - 95 % [facility] Base excess, POC -9.3 mmol/L [facility] HCO3, Art POC 17(L) 20 - 30 mmol/L [facility] Hct, POC 31.0(L) 36.3 - 45.3 % [facility] Total Hb, POC 10.4(L) 11.9 - 15.5 g/dL [facility] Blood 08/24/2024 10:0 7 PM SCALING MACHINE OPERATOR 08/24/2024 10:07 PM SCALING MACHINE OPERATOR Tashi Parisi MD LAB POCT ORDERABLES - DEV ICE Final Result Performing Organization Address [facility]/ZIP Co de Phone Number [facility] [place] [address] * Transfuse RBC (08/24/2024 9:45 PM SCALING MACHINE OPERATOR) Blood us Davina Mckeon MD BLOOD TRANSFUSION ORDERABLES Fin al Result [facility] [place] [address] * Arterial Line (08/24/2024 9:43 PM SCALING MACHINE OPERATOR) Narrative Ashok Santa MD - 08/24/2024 9:43 PM SCALING MACHINE OPERATOR Ashok Santa MD 08/24/2024 9:44 PM Arterial Line Patient location: OR End time: 08/24/2024 8:55 PM Indication: continuous blood pressure monitoring, blood sampling needed and unable to use non-invasive cuff Ultrasound assisted: yes Staff: Supervising provider: Davina Mckeon MD Placed by: Resident: Ashok Santa MD Procedure prep: Prep solution: chlorhexadine/alcohol Prep: provider hat/mask and sterile gloves Arterial line: Catheter size: 3 Peruvian Catheter length: 8 cm Catheter type: wire-guided catheter Seldinger technique: yes Laterality: left Site: radial artery Line secured: Tegaderm and tape Results: good waveform and good blood return Number of attempts: 1 Assessment: Events: patient tolerated procedure well with no complications us Davina Mckeon MD ANESTHESIA ORDERABLES Edited Res ult - Final * Peripheral IV Catheter (08/24/2024 9:43 PM SCALING MACHINE OPERATOR) Narrative Ashok Santa MD - 08/24/2024 9:43 PM SCALING MACHINE OPERATOR Ashok Santa MD 08/24/2024 9:43 PM Peripheral IV Catheter Patient location: OR End time: 08/24/2024 8:50 PM Staff: Supervising provider: Davina Mckeon MD Placed by: Resident: Bárbara Valenzuela MD Preprocedure prep: Prep solution: chlorhexadine PPE: gloves and provider hat/mask PIV line: Laterality: left Site: forearm Catheter size: 20 g Technique: anatomical landmarks and direct visualization Procedure details: good blood return and occlusive dressing applied Number of attempts: 2 Assessment: Events: patient tolerated procedure well with no complications us Davina Mckeon MD ANESTHESIA ORDERABLES Final Resu lt * Transfuse plasma (08/24/2024 9:39 PM SCALING MACHINE OPERATOR) Blood us Davina Mckeon MD BLOOD TRANSFUSION ORDERABLES Fin al Result [facility] Department [place] [address] * Transfuse plasma Standard plasma (08/24/2024 9:26 PM SCALING MACHINE OPERATOR) Blood us Davina Mckeon MD BLOOD TRANSFUSION ORDERABLES Fin al Result Performing Organization Address [facility] [place] [address] * Prepare plasma: 1 Units (08/24/2024 9:19 PM SCALING MACHINE OPERATOR) Product code [id number] Unit Number [id number] [facility] Product Blood Type BPOS [facility] Dispense Status PRESUMED TRANSFUSED [facility] Blood (Blood, Venous) 08/24/2024 9:19 PM SCALING MACHINE OPERATOR 08/24/2024 9:21 PM SCALING MACHINE OPERATOR Narrative [facility] - 08/25/2024 4:00 PM SCALING MACHINE OPERATOR Date required:-20240824 FFP # of Units:-1-Units Reasons:-Immediate need for surgical intervention Davina Mckeon MD BLOOD BANK PRODUCT ORDERABLES Fi nal Result Performing Organization Address [facility] Co de Phone Number [facility] [place] [address] * Prepare RBC: 2 Units (08/24/2024 9:19 PM SCALING MACHINE OPERATOR) Product code [id number] Unit Number [id number] H [facility] Product Blood Type OPOS [facility] Dispense Status PRESUMED TRANSFUSED [facility] Blood 08/24/2024 9:19 PM SCALING MACHINE OPERATOR 08/24/2024 9:21 PM SCALING MACHINE OPERATOR Narrative [facility] - 08/25/2024 4:00 PM SCALING MACHINE OPERATOR Are special requirements needed? (All products are leukoreduced and CMV- safe)- >No Date required:-20240824 LRRBC # of [id number] Reasons:-Intra-op transfusion} Davina Mckeon MD BLOOD BANK PRODUCT ORDERABLES Fi nal Result Performing Organization Address [facility] Co de Phone Number [facility] [employer] [place], [place] [id number] * (ABNORMAL) POC Blood Gas and Chemistries, Arterial - (08/24/2024 9:16 PM SCALING MACHINE OPERATOR) pH, Art POC 7.15(C) 7.35 - 7.45 pCO2, Art POC 42 35 - 45 mmHg [facility] pO2, Art POC 140(H) 83 - 108 mmHg [facility] Na, POC 142 135 - 145 mmol/L [facility] K POC 3.8 3.3 - 4.9 mmol/L [facility] Comment: Interpretive Data Not all point of care methods assess for hemolysis. Confirm with instrument and retest K+ if not consistent with clinical signs and symptoms. Current Interpretive Data was last revised on 2023. Cl, POC 118(H) 97 - 110 mmol/L [facility] Ionized Ca, POC 4.95 4.50 - 5.10 mg/dL [facility] Glucose, POC 251(H) 70 - 199 mg/dL [facility] Lactate, POC 1.8 0.7 - 2.2 mmol/L [facility] SO2 (nasra) arterial 99(H) 90 - 95 % [facility] Base excess, POC -13.4 mmol/L [facility] HCO3, Art POC 14(L) 20 - 30 mmol/L [facility] Hct, POC 27.0(L) 36.3 - 45.3 % [facility] Total Hb, POC 9.0(L) 11.9 - 15.5 g/dL [facility] Blood 08/24/2024 9:16 PM SCALING MACHINE OPERATOR 08/24/2024 9:16 PM SCALING MACHINE OPERATOR us Tashi Parisi MD LAB POCT ORDERABLES - DEV ICE Final Result [facility] [place] [address] * (ABNORMAL) POCT hemoglobin, hematocrit and platelet count (08/24/2024 9:15 PM SCALING MACHINE OPERATOR) Hgb, POC 8.9(L) 11.9 - 15.5 g/dL Hematocrit POC 27.4(L) 35.6 - 45.5 % [facility] Platelet POC 263 150 - 400 K/cumm [facility] Blood 08/24/2024 9:15 PM SCALING MACHINE OPERATOR 08/24/2024 9:15 PM SCALING MACHINE OPERATOR Tashi Parisi MD LAB POCT ORDERABLES - DEV ICE Final Result Performing Organization Address [facility] Co de Phone Number [facility] [place] [address] * (ABNORMAL) POCT Partial thromboplastin time (PTT) (08/24/2024 9:15 PM SCALING MACHINE OPERATOR) APTT, POC 26.6(L) 32.5 - 46.1 sec Blood 08/24/2024 9:15 PM SCALING MACHINE OPERATOR 08/24/2024 9:15 PM SCALING MACHINE OPERATOR Tashi Parisi MD LAB POCT ORDERABLES - DEV ICE Final Result Performing Organization Address [facility] de Phone Number [facility] [place] [address] * (ABNORMAL) POCT prothrombin time (08/24/2024 9:14 PM SCALING MACHINE OPERATOR) PT, POC 21.1(H) 11.7 - 16.6 sec INR, POC 1.6(H) 0.9 - 1.2 [facility] Blood 08/24/2024 9:14 PM SCALING MACHINE OPERATOR 08/24/2024 9:14 PM SCALING MACHINE OPERATOR Tashi Parisi MD LAB POCT ORDERABLES - DEV ICE Final Result Performing Organization Address [facility] de Phone Number [facility] [place] [address] * Prepare plasma: 1 Units Standard plasma (08/24/2024 9:06 PM SCALING MACHINE OPERATOR) Product code [id number] Unit Number [id number] D [facility] Product Blood Type OPOS [facility] Dispense Status PRESUMED TRANSFUSED [facility] Blood (Blood, Venous) 08/24/2024 9:06 PM SCALING MACHINE OPERATOR 08/24/2024 9:05 PM SCALING MACHINE OPERATOR Narrative [facility] - 08/25/2024 4:00 PM SCALING MACHINE OPERATOR Is this plasma order intended for a COVID-19 patient as convalescent plasma?->Standard plasma Special Requirements Needed?->No Date required:-[id number] FFP # of Units:-1-Units Reasons:-Active major bleeding with coagulopathy} us Davina Mckeon MD BLOOD BANK PRODUCT ORDERABLES Fi nal Result Performing Organization Address [facility] Co de Phone Number [facility] [place], [place] [id number] * Transfuse RBC (08/24/2024 9:04 PM SCALING MACHINE OPERATOR) Blood us Davina Mckeon MD BLOOD TRANSFUSION ORDERABLES Fin al Result Performing Organization Address [facility]/ZIP Co de Phone Number [facility] [place] [address] * Prepare RBC: 3 Units (08/24/2024 8:31 PM SCALING MACHINE OPERATOR) Product code [id number] Unit Number [id number] Y [facility] Product Blood Type OPOS [facility] Dispense Status RETURNED [facility] Product code [id number] [facility] Unit Number [id number] U [facility] Product Blood Type OPOS [facility] Dispense Status RETURNED [facility] Product code [id number] [facility] Unit Number [id number] W [facility] Product Blood Type OPOS [facility] Dispense Status PRESUMED TRANSFUSED [facility] Blood 08/24/2024 8:31 PM SCALING MACHINE OPERATOR 08/24/2024 8:35 PM SCALING MACHINE OPERATOR Narrative [facility] - 08/26/2024 10:17 AM SCALING MACHINE OPERATOR Are special requirements needed? (All products are leukoreduced and CMV- safe)- >No Date required:-[id number] LRRBC # of Dxayi-7-Hedos Reasons:-Intra-op transfusion} Davina Mckeon MD BLOOD BANK PRODUCT ORDERABLES Fi nal Result Performing Organization Address [facility] de Phone Number [facility] [place] [address] * [place] Fluoroscopy < 1 Hour (08/24/2024 8:00 PM SCALING MACHINE OPERATOR) Narrative [facility] - 08/28/2024 5:44 PM SCALING MACHINE OPERATOR The images from this study are not interpreted by Radiology. Please refer to the physician's procedure / OR operative note. Sharan De La Vega MD IMG FLUOROSCOPY PROCEDUR ES Final Result Performing Organization Address [facility] de Phone Number [facility] * POCT glucose (08/24/2024 6:36 PM SCALING MACHINE OPERATOR) Glucose, POC 144 70 - 199 mg/dL Blood 08/24/2024 6:36 PM SCALING MACHINE OPERATOR 08/24/2024 6:36 PM SCALING MACHINE OPERATOR Tashi Parisi MD LAB POCT ORDERABLES - DEV ICE Final Result Performing Organization Address [facility] de Phone Number [facility] [place] [address] * FL AN ELECTIVE ENDOTRACHEAL AIRWAY, FL AN PROCEDURE PLACEHOLDER (08/24/2024 6:22 PM SCALING MACHINE OPERATOR) Narrative Maricruz Rojo CRNA - 08/24/2024 6:22 PM SCALING MACHINE OPERATOR Maricruz Rojo CRNA 08/24/2024 6:23 PM Airway Patient location: OR Urgency: elective Indications for airway management: anesthesia Difficult airway: no Staff: Supervising provider: Lenin Moreland MD Placed by: ASSET RECOVERY SPECIALIST: Maricruz Rojo CRNA Emergent airway documentation: Risks and benefits discussed: yes Consent obtained: yes Consent given by: patient Airway prep: Preoxygenated: yes Patient position: sniffing Mask difficulty assessment: 1 - vent by mask Spontaneous ventilation during airway: absent Sedation level during airway: GA Final airway details: Final airway type: endotracheal airway Tube type: ETT ETT size: 7.0 mm Cuffed: yes Technique used for successful ETT placement: video laryngoscopy Devices/Methods used in placement: stylet Insertion site: oral Blade type: Evelyn Video blade type: Mendoza Blade size: 3 Cormack-Lehane (video): grade IIa - partial view of glottis Initial cuff pressure: 25 cm H2O Cuff volume: 6 mL Cuff inflated with: air ETT to lips: 22 cm Placement verified by: auscultation and CO2 detection Airway secured with: silk tape Number of attempts: 1 Lenin Moreland MD ANESTHESIA ORDERABLES Final Result * [place] AN PROCEDURE PLACEHOLDER (08/24/2024 2:53 PM SCALING MACHINE OPERATOR) Narrative Serjio Macdonald MD - 08/24/2024 2:53 PM SCALING MACHINE OPERATOR Harley Espinoza MD 08/24/2024 4:10 PM Peripheral Block Patient location during procedure: pre-op holding Reason for block: post-op pain management per surgeon request Ultrasound image in chart or stored: yes Block type: single shot Laterality: right Block type: fascia iliaca nerve block Staff: Supervising provider: Serjio Macdonald MD Placed by: Resident: Harley Espinoza MD Procedure prep: Preprocedure checklist: patient identified, procedure contraindications assessed, site marked, procedure consent, surgical consent, IV checked, risks, benefits and alternatives discussed, monitors and equipment checked and timeout performed Patient position: supine Procedure performed while patient: sedate with meaningful contact Monitoring: ECG, oximetry and blood pressure Supplemental O2: nasal cannula Prep solution: chlorhexidine/alcohol PPE: provider hat/mask, sterile gloves and sterile probe cover and gel Peripheral nerve block: Technique: ultrasound guided Needle type: insulated, short-bevel and echogenic Needle gauge: 20 G Needle length: 80 mm Injection assessment: injection made incrementally with constant monitoring, negative aspiration for heme, no paresthesias noted, normal resistance to injection and see flowsheet for medication details Assessment: Block success: full evaluation pending Events: patient tolerated procedure well with no complications Harley Espinoza MD ANESTHESIA ORDERABLES Final Result * Check Sample (08/24/2024 2:14 PM SCALING MACHINE OPERATOR) ABO Rh O Positive [facility] HC[facility] OTHER 08/24/2024 2:14 PM SCALING MACHINE OPERATOR 08/24/2024 2:24 PM SCALING MACHINE OPERATOR Tashi Parisi MD LAB BLOOD ORDERABLES Anna l Result Performing Organization Address [facility] Co de Phone Number [facility] [place] [address] [facility] * POCT glucose (08/24/2024 2:10 PM SCALING MACHINE OPERATOR) Glucose, POC 155 70 - 199 mg/dL Blood 08/24/2024 2:10 PM SCALING MACHINE OPERATOR 08/24/2024 2:10 PM SCALING MACHINE OPERATOR Result [facility] Tashi Parisi MD LAB POCT ORDERABLES - DEV ICE Final Result Performing Organization Address [facility] Co de Phone Number [facility] [place] [address] * POCT glucose (08/24/2024 11:51 AM SCALING MACHINE OPERATOR) Glucose, POC 176 70 - 199 mg/dL Blood 08/24/2024 11:5 1 AM SCALING MACHINE OPERATOR 08/24/2024 11:51 AM SCALING MACHINE OPERATOR Tashi Parisi MD LAB POCT ORDERABLES - DEV ICE Final Result Performing Organization Address [facility] Co de Phone Number [facility] [place] [address] * (ABNORMAL) eGFR (08/24/2024 9:39 AM SCALING MACHINE OPERATOR) Pathologist [facility] eGFR 39(L) >=60 mL/min/1. 73 m2 Comment: Interpretive Data Reference Interval Normal >/= 90 mL/min/1.73m2 Mildly decreased* 60 - 89 mL/min/1.73m2 Mildly to moderately decreased 45 - 59 mL/min/1.73m2 Moderately to severely decreased 30 - 44 mL/min/1.73m2 Severely decreased 15 - 29 mL/min/1.73m2 Kidney Failure < 15 mL/min/1.73m2 *Relative to young adult level Estimated glomerular filtration rate is determined by the 2020 CKD-EPI equation recommended by the National Kidney Foundation (A Unifying Approach to GFR Estimation: Recommendations of the NKF-ASK Task Force on Reassessing the Inclusion of Race in Diagnosing Kidney Disease, JASN 2020). The CKD-EPI equation should not be used for patients with unstable renal function and has not been validated in children and those over 70. Current interpretive data was last reviewed 2021. Blood 08/24/2024 9:39 AM SCALING MACHINE OPERATOR 08/24/2024 9:54 AM SCALING MACHINE OPERATOR us Radha Kirk CAMERA REPAIR TECHNICIAN LAB BLOOD ORDERABLES Final Result [facility] [place] [address] * (ABNORMAL) Differential, auto (08/24/2024 9:39 AM SCALING MACHINE OPERATOR) [facility] Neutrophil abs 4.8 1.5 - 6.5 K/cumm Imm gran abs 0.0 0.0 - 0.1 K/cumm [facility] Lymphocyte abs 1.4 0.8 - 3.3 K/cumm [facility] Monocyte abs 0.9(H) 0.2 - 0.8 K/cumm [facility] Eosinophil abs 0.2 0.0 - 0.5 K/cumm [facility] Basophil abs 0.1 0.0 - 0.1 K/cumm [facility] Neutrophil pct 64.5 % [facility] Comment: Interpretive Data Percent cell count reference ranges are not reported, since discordance with absolute values may lead to misinterpretation of CBC data. Current Interpretive Data was last revised on 2017. Imm gran pct 0.4 % [facility] Comment: Interpretive Data Percent cell count reference ranges are not reported, since discordance with absolute values may lead to misinterpretation of CBC data. Current Interpretive Data was last revised on 2017. Lymphocyte pct 18.6 % [facility] Comment: Interpretive Data Percent cell count reference ranges are not reported, since discordance with absolute values may lead to misinterpretation of CBC data. Current Interpretive Data was last revised on 2017. Monocyte pct 12.5 % [facility] Comment: Interpretive Data Percent cell count reference ranges are not reported, since discordance with absolute values may lead to misinterpretation of CBC data. Current Interpretive Data was last revised on 2017. Eosinophil pct 3.1 % [facility] Comment: Interpretive Data Percent cell count reference ranges are not reported, since discordance with absolute values may lead to misinterpretation of CBC data. Current Interpretive Data was last revised on 2017. Basophil pct 0.9 % [facility] Comment: Interpretive Data Percent cell count reference ranges are not reported, since discordance with absolute values may lead to misinterpretation of CBC data. Current Interpretive Data was last revised on 2017. Blood 08/24/2024 9:39 AM SCALING MACHINE OPERATOR 08/24/2024 9:54 AM SCALING MACHINE OPERATOR us Radha Kirk CAMERA REPAIR TECHNICIAN LAB BLOOD ORDERABLES Final Result [facility] [place] [address] * (ABNORMAL) CBC with auto differential (08/24/2024 9:39 AM SCALING MACHINE OPERATOR) WBC 7.4 3.8 - 9.9 K/cumm Hgb 12.2 11.9 - 15.5 g/dL [facility] Hct 39.5 35.6 - 45.5 % [facility] Plt 235 150 - 400 K/cumm [facility] MPV 9.6 9.1 - 12.3 fL [facility] RBC 4.35 3.90 - 5.20 M/cumm [facility] MCV 90.8 81.3 - 96.4 fL [facility] MCH 28.0 27.1 - 33.3 pg [facility] MCHC 30.9(L) 32.3 - 35.7 g/dL [facility] RDW CV 14.6 11.1 - 14.9 % [facility] RDW SD 49.4(H) 35.7 - 48.1 fL [facility] NRBC abs 0.00 0.00 - 0.01 K/cumm [facility] Blood 08/24/2024 9:39 AM SCALING MACHINE OPERATOR 08/24/2024 9:54 AM SCALING MACHINE OPERATOR Radha Kirk CAMERA REPAIR TECHNICIAN LAB BLOOD ORDERABLES Final Result Performing Organization Address [facility]/ZIP Co de Phone Number [facility] [place] [address] * Phosphorus (08/24/2024 9:39 AM SCALING MACHINE OPERATOR) Phosphorus, pl 3.6 2.3 - 4.5 mg/dL Blood 08/24/2024 9:39 AM SCALING MACHINE OPERATOR 08/24/2024 9:54 AM SCALING MACHINE OPERATOR Radha Kirk CAMERA REPAIR TECHNICIAN LAB BLOOD ORDERABLES Final Result [facility] [place] [address] * Magnesium (08/24/2024 9:39 AM SCALING MACHINE OPERATOR) Magnesium 1.9 1.4 - 2.5 mg/dL Blood 08/24/2024 9:39 AM SCALING MACHINE OPERATOR 08/24/2024 9:54 AM SCALING MACHINE OPERATOR Radha Kirk CAMERA REPAIR TECHNICIAN LAB BLOOD ORDERABLES Final Result [facility] [place] [address] * (ABNORMAL) Comprehensive metabolic panel (08/24/2024 9:39 AM SCALING MACHINE OPERATOR) Sodium 140 135 - 145 mmol/L Potassium, pl 3.5 3.3 - 4.9 mmol/L [facility] Chloride 108 97 - 110 mmol/L [facility] CO2 24 22 - 32 mmol/L [facility] Anion gap 8 2 - 15 mmol/L [facility] BUN 35(H) 6 - 25 mg/dL [facility] Creatinine 1.33(H) 0.60 - 1.10 mg/dL [facility] Glucose 193 70 - 199 mg/dL [facility] Comment: Interpretive Data Fasting glucose >/= 126 mg/dl is diagnostic for diabetes. Fasting is defined as no caloric intake for at least 8 hours. Fasting glucose between 100 mg/dl to 125 mg/dl is diagnostic of prediabetes. In a patient with classic symptoms of hyperglycemia or hyperglycemic crisis, a random glucose >/= 200 mg/dl is diagnostic for diabetes. In the absence of unequivocal hyperglycemia, results should be confirmed by repeat testing. The classification and Diagnosis of Diabetes Diabetes Care 202; 46: S19-S40. Current interpretive data was last revised 2022. Calcium 9.8 8.5 - 10.3 mg/dL [facility] Bilirubin, total 0.5 0.1 - 1.2 mg/dL [facility] Protein, pl 7.0 6.5 - 8.5 g/dL [facility] Albumin 3.7 3.5 - 5.0 g/dL [facility] Alk phos 96 40 - 130 Units/L [facility] ALT 12 7 - 45 Units/L [facility] AST 15 10 - 45 Units/L [facility] Blood 08/24/2024 9:39 AM SCALING MACHINE OPERATOR 08/24/2024 9:54 AM SCALING MACHINE OPERATOR us Radha Kirk CAMERA REPAIR TECHNICIAN LAB BLOOD ORDERABLES Final Result [facility] [place] [address] * POCT glucose (08/24/2024 8:16 AM SCALING MACHINE OPERATOR) Glucose, POC 174 70 - 199 mg/dL Blood 08/24/2024 8:16 AM SCALING MACHINE OPERATOR 08/24/2024 8:16 AM SCALING MACHINE OPERATOR us Tashi Parisi MD LAB POCT ORDERABLES - DEV ICE Final Result Performing Organization Address [facility] [place] [address] * Potassium, whole blood (08/24/2024 3:38 AM SCALING MACHINE OPERATOR) Potassium, bld 3.5 3.3 - 4.9 mmol/L Blood 08/24/2024 3:38 AM SCALING MACHINE OPERATOR 08/24/2024 3:44 AM SCALING MACHINE OPERATOR us Miranda Hunter MD LAB BLOOD ORDERABLES Final Result Performing Organization Address [facility] Co de Phone Number [facility] [place] [address] * POCT glucose (08/23/2024 10:27 PM SCALING MACHINE OPERATOR) Glucose, POC 156 70 - 199 mg/dL Blood 08/23/2024 10:2 7 PM SCALING MACHINE OPERATOR 08/23/2024 10:27 PM SCALING MACHINE OPERATOR Tashi Parisi MD LAB POCT ORDERABLES - DEV ICE Final Result Performing Organization Address [facility] Co de Phone Number [facility] [place] [address] * (ABNORMAL) POCT glucose (08/23/2024 9:05 PM SCALING MACHINE OPERATOR) Glucose, POC 205(H) 70 - 199 mg/dL Blood 08/23/2024 9:05 PM SCALING MACHINE OPERATOR 08/23/2024 9:05 PM SCALING MACHINE OPERATOR us Tashi Parisi MD LAB POCT ORDERABLES - DEV ICE Final Result [facility] [place] [address] * CT Pelvis WO Contrast (08/23/2024 7:10 PM SCALING MACHINE OPERATOR) Anatomical Region Laterality Modality Body N/A Computed Tomogra phy 08/23/2024 7:18 PM SCALING MACHINE OPERATOR Impressions 08/23/2024 7:28 PM SCALING MACHINE OPERATOR Changes of intramedullary nailing of the right proximal femur with comminuted fracture involving the proximal right femoral shaft as well as right femoral neck without intra-articular involvement. Dictated by: Nestor Lentz MD PHD The radiology attending physician has personally reviewed this study, and had reviewed and/or edited this written report and agrees with it. Electronically signed by: Toi Milan M.D. Narrative 08/23/2024 7:28 PM SCALING MACHINE OPERATOR EXAMINATION: CT PELVIS WO CONTRAST HISTORY: Suspected fracture of the right hip TECHNIQUE: Computed tomography of the pelvis was performed without administration of intravenous contrast. COMPARISON: Same day radiographs dated 08/23/2024 FINDINGS: There are changes of intramedullary nailing of the right proximal femur. There is an acute appearing fracture of the right femoral shaft with the fracture line extending through the intramedullary nail. There is an additional comminuted isaac-hardware fracture of the right femoral neck without involvement of the right femoroacetabular joint. The comminuted fracture involves the right lesser trochanter. There are partially imaged degenerative changes of the lumbar spine. The left hip is seated. Mild osteitis pubis. Soft tissue: Intrathecal pump is partially imaged. Changes of anterior abdominal wall hernia repair. Extensive vascular calcifications of the imaged aortobiiliac systems. Colonic diverticulosis. Likely changes of partial colectomy. No imaged pneumoperitoneum or intra-abdominal ascites. An ostomy seen over the right lower quadrant. Procedure Note Toi Milan MD - 08/23/2024 EXAMINATION: CT PELVIS WO CONTRAST HISTORY: Suspected fracture of the right hip TECHNIQUE: Computed tomography of the pelvis was performed without administration of intravenous contrast. COMPARISON: Same day radiographs dated 08/23/2024 FINDINGS: There are changes of intramedullary nailing of the right proximal femur. There is an acute appearing fracture of the right femoral shaft with the fracture line extending through the intramedullary nail. There is an additional comminuted isaac-hardware fracture of the right femoral neck without involvement of the right femoroacetabular joint. The comminuted fracture involves the right lesser trochanter. There are partially imaged degenerative changes of the lumbar spine. The left hip is seated. Mild osteitis pubis. Soft tissue: Intrathecal pump is partially imaged. Changes of anterior abdominal wall hernia repair. Extensive vascular calcifications of the imaged aortobiiliac systems. Colonic diverticulosis. Likely changes of partial colectomy. No imaged pneumoperitoneum or intra-abdominal ascites. An ostomy seen over the right lower quadrant. IMPRESSION: Changes of intramedullary nailing of the right proximal femur with comminuted fracture involving the proximal right femoral shaft as well as right femoral neck without intra-articular involvement. Dictated by: Nestor Lentz MD PHD The radiology attending physician has personally reviewed this study, and had reviewed and/or edited this written report and agrees with it. Electronically signed by: Toi Milan M.D. Minor Barnes MD IM CT PROCEDURES Final Re sult * CT Cervical Spine WO Contrast (08/23/2024 5:30 PM SCALING MACHINE OPERATOR) Anatomical Region Laterality Modality Spine N/A Computed Tomogra phy 08/23/2024 5:42 PM SCALING MACHINE OPERATOR Impressions 08/23/2024 5:52 PM SCALING MACHINE OPERATOR No acute fracture within the cervical spine. Dictated by: Maddi Pat MD The radiology attending physician has personally reviewed this study, and had reviewed and/or edited this written report and agrees with it. Electronically signed by: Sandy Garcia M.D. Narrative 08/23/2024 5:52 PM SCALING MACHINE OPERATOR EXAMINATION: CT of the cervical spine without contrast HISTORY: Fall TECHNIQUE: CT of the cervical spine was performed according to the standard protocol without intravenous contrast. COMPARISON: CT dated 08/23/2024 FINDINGS: Exaggerated lordosis of the cervical spine. There is no acute fracture. There are diffuse multilevel degenerative changes within the cervical spine with varying degrees of uncovertebral and facet arthropathy. Non-instrumented osseous fusion of C5 and C5 posterior elements. There is pannus formation along the posterior aspect of C2. Intervertebral disk heights are normal. Multilevel disc bulge. Multilevel ligamentum flavum calcifications. Limited views of the skull base appear normal. The sphenoid sinus is well aerated. No soft tissue abnormality is identified. Calcified atherosclerotic disease of the vertebral arteries and carotid arteries. Procedure Note Sandy Garcia MD - 08/23/2024 EXAMINATION: CT of the cervical spine without contrast HISTORY: Fall TECHNIQUE: CT of the cervical spine was performed according to the standard protocol without intravenous contrast. COMPARISON: CT dated 08/23/2024 FINDINGS: Exaggerated lordosis of the cervical spine. There is no acute fracture. There are diffuse multilevel degenerative changes within the cervical spine with varying degrees of uncovertebral and facet arthropathy. Non-instrumented osseous fusion of C5 and C5 posterior elements. There is pannus formation along the posterior aspect of C2. Intervertebral disk heights are normal. Multilevel disc bulge. Multilevel ligamentum flavum calcifications. Limited views of the skull base appear normal. The sphenoid sinus is well aerated. No soft tissue abnormality is identified. Calcified atherosclerotic disease of the vertebral arteries and carotid arteries. IMPRESSION: No acute fracture within the cervical spine. Dictated by: Maddi Pat MD The radiology attending physician has personally reviewed this study, and had reviewed and/or edited this written report and agrees with it. Electronically signed by: Sandy Garcia M.D. Minor Barnes MD IM CT PROCEDURES Final Re sult * (ABNORMAL) eGFR (08/23/2024 4:49 PM SCALING MACHINE OPERATOR) eGFR 49(L) >=60 mL/min/1. 73 m2 Comment: Interpretive Data Reference Interval Normal >/= 90 mL/min/1.73m2 Mildly decreased* 60 - 89 mL/min/1.73m2 Mildly to moderately decreased 45 - 59 mL/min/1.73m2 Moderately to severely decreased 30 - 44 mL/min/1.73m2 Severely decreased 15 - 29 mL/min/1.73m2 Kidney Failure < 15 mL/min/1.73m2 *Relative to young adult level Estimated glomerular filtration rate is determined by the 2020 CKD-EPI equation recommended by the National Kidney Foundation (A Unifying Approach to GFR Estimation: Recommendations of the NKF-ASK Task Force on Reassessing the Inclusion of Race in Diagnosing Kidney Disease, JASN 2020). The CKD-EPI equation should not be used for patients with unstable renal function and has not been validated in children and those over 70. Current interpretive data was last reviewed 2021. Blood 08/23/2024 4:49 PM SCALING MACHINE OPERATOR 08/23/2024 4:55 PM SCALING MACHINE OPERATOR Minor Barnes MD LAB BLOOD ORDERABLES Final Result [facility] [place] [address] * Lipid panel (08/23/2024 4:49 PM SCALING MACHINE OPERATOR) Cholesterol 146 30 - 199 mg/dL Comment: Interpretive Data Ages < or = 19 years Acceptable: <170 mg/dL Borderline high: 170-199 mg/dL High: >or= 200 mg/dL Ages > or = 20 years Desirable: <200 mg/dL Borderline high: 200-239 mg/dL High: >or= 240 mg/dL Literature References: 1. Expert Panel on Integrated Guidelines for Cardiovascular Health and Risk Reduction in Children and Adolescents. Pediatrics 2011;128:S213 2. NCEP Expert Panel. Circulation 2004;110:227 Current Interpretive Data was last revised on 2018. Triglycerides 93 <=149 mg/dL [facility] Comment: Interpretive Data Ages < or = 9 years Acceptable: <75 mg/dL Borderline high: 75-99 mg/dL High: >or= 100 mg/dL Ages 10 to 20 years Acceptable: <90 mg/dL Borderline high: 90-129 mg/dL High: >or= 130 mg/dL Ages > or = 20 years Desirable: <150 mg/dL Borderline high: 150-199 mg/dL High: 200-499 mg/dL Very high: >or= 499 mg/dL Literature References: 1. Expert Panel on Integrated Guidelines for Cardiovascular Health and Risk Reduction in Children and Adolescents. Pediatrics 2011;128:S213 2. NCEP Expert Panel. Circulation 2004;110:227 Current Interpretive Data was last revised on 2018. HDL 45 >=40 mg/dL [facility] Comment: Interpretive Data Ages < or = 19 years Acceptable: >45 mg/dL Borderline low: 40-45 mg/dL Low: <40 mg/dL Ages > or = 20 years Desirable: >or= 60 mg/dL Low: <40 mg/dL Literature References: 1. Expert Panel on Integrated Guidelines for Cardiovascular Health and Risk Reduction in Children and Adolescents. Pediatrics 2011;128:S213 2. NCEP Expert Panel. Circulation 2004;110:227 Current Interpretive Data was last revised on 2018. LDL, calculated 84 <=129 mg/dL [facility] Comment: Interpretive Data Ages < or = 19 years Acceptable: <110 mg/dL Borderline high: 110-129 mg/dL High: >or= 130 mg/dL Ages > or = 20 years Optimal: <100 mg/dL Near optimal: 100-129 mg/dL Borderline high: 130-159 mg/dL High: >160 mg/dL Calculated using the Romario LDL-C estimating equation. This equation was implemented on 2024. Prior to this date LDL-C was estimated using the Friedewald equation. Literature References: 1. Expert Panel on Integrated Guidelines for Cardiovascular Health and Risk Reduction in Children and Adolescents. Pediatrics 2011;128:S213 2. NCEP Expert Panel. Circulation 2004;110:227 3. Romario Delatorre al. TIMOTHY Cardiol. 2020 December 10;5(5):540-548. doi: 10.1001/[email or web address] Current Interpretive Data was last revised on 2024. Non-HDL Cholesterol 101 mg/dL [facility] Comment: Interpretive Data Ages < or = 19 years Acceptable: <120 mg/dL Borderline high: 120-144 mg/dL High: >145 mg/dL Ages > or = 20 years When triglycerides are >200 mg/dL, Non-HDL cholesterol is a secondary target of therapy with treatment goals that are 30 mg/dL greater than the LDL cholesterol target. Literature References: 1. Expert Panel on Integrated Guidelines for Cardiovascular Health and Risk Reduction in Children and Adolescents. Pediatrics 2011;128:S213 2. NCEP Expert Panel. Circulation 2004;110:227 Current Interpretive Data was last revised on 2018. Chol/HDL ratio 3 [facility] Blood 08/23/2024 4:49 PM SCALING MACHINE OPERATOR 08/23/2024 4:55 PM SCALING MACHINE OPERATOR Narrative [facility] - 08/24/2024 8:25 AM SCALING MACHINE OPERATOR Reflex us Tashi Parisi MD LAB BLOOD ORDERABLES Anna mari Result [facility] [place] [address] * (ABNORMAL) Comprehensive metabolic panel (08/23/2024 4:49 PM SCALING MACHINE OPERATOR) Sodium 144 135 - 145 mmol/L Potassium, pl 3.1(L) 3.3 - 4.9 mmol/L [facility] Chloride 111(H) 97 - 110 mmol/L [facility] CO2 22 22 - 32 mmol/L [facility] Anion gap 11 2 - 15 mmol/L [facility] BUN 29(H) 6 - 25 mg/dL [facility] Creatinine 1.11(H) 0.60 - 1.10 mg/dL [facility] Glucose 218(H) 70 - 199 mg/dL [facility] Comment: Interpretive Data Fasting glucose >/= 126 mg/dl is diagnostic for diabetes. Fasting is defined as no caloric intake for at least 8 hours. Fasting glucose between 100 mg/dl to 125 mg/dl is diagnostic of prediabetes. In a patient with classic symptoms of hyperglycemia or hyperglycemic crisis, a random glucose >/= 200 mg/dl is diagnostic for diabetes. In the absence of unequivocal hyperglycemia, results should be confirmed by repeat testing. The classification and Diagnosis of Diabetes Diabetes Care 202; 46: S19-S40. Current interpretive data was last revised 2022. Calcium 9.4 8.5 - 10.3 mg/dL [facility] Bilirubin, total 0.3 0.1 - 1.2 mg/dL [facility] Protein, pl 6.9 6.5 - 8.5 g/dL [facility] Albumin 3.6 3.5 - 5.0 g/dL [facility] Alk phos 93 40 - 130 Units/L [facility] ALT 10 7 - 45 Units/L [facility] AST 20 10 - 45 Units/L [facility] Blood 08/23/2024 4:49 PM SCALING MACHINE OPERATOR 08/23/2024 4:55 PM SCALING MACHINE OPERATOR Minor Barnes MD LAB BLOOD ORDERABLES Final Result [facility] [place] [address] * FL INJECTION AA&/STRD OTHER PERIPHERAL NERVE/BRANCH (08/23/2024 4:15 PM SCALING MACHINE OPERATOR) Narrative Álvaro Flores MD - 08/23/2024 4:15 PM SCALING MACHINE OPERATOR Minor Barnes MD 08/23/2024 4:17 PM Nerve Block Date/Time: 08/23/2024 4:15 PM Performed by: Minor Barnes MD Authorized by: Felice Goyal MD [place] Protocol: RN Notified of Procedure: yes Informed consent: Risks, benefits, alternatives discussed Patient's stated name/ matches armband: Yes Consent form signed, dated, timed; matches correct patient, intended procedure and site: Yes Imaging: Pertinent imaging reviewed, correctly oriented and match to patient identifiers Lab/Diag test results: Pertinent lab/diag tests reviewed and match to patient identifiers Supplies, devices and special equipment are available: yes Site/side marked: n/a Indications: Indications: Pain relief Location: Body area: Lower extremity Lower extremity nerve: Fascia iliaca Laterality: Right Pre-procedure details: Skin preparation: 2% chlorhexidine Skin anesthesia (see MAR for exact dosages): Skin anesthesia method: Local infiltration Local anesthetic: Bupivacaine 0.5% Procedure details (see MAR for exact dosages): Block needle gauge: 20 G Guidance: ultrasound Anesthetic injected: Bupivacaine 0.5% Steroid injected: None Additive injected: Normal saline Injection procedure: Anatomic landmarks identified, negative aspiration for blood and introduced needle Paresthesia: None Post-procedure details: Dressing: None Outcome: Anesthesia achieved Patient tolerance of procedure: Tolerated well, no immediate complications us Felice Goyal MD IN CLINIC/BEDSIDE [facility] Final Result * XR Hip Right 2 or 3 Views (08/23/2024 3:51 PM SCALING MACHINE OPERATOR) Anatomical Region Laterality Modality Lower Extremities, Hip, Pelvis Right C omputed Radiography 08/23/2024 4:08 PM SCALING MACHINE OPERATOR Impressions 08/23/2024 4:11 PM SCALING MACHINE OPERATOR Extra-articular obliquely oriented mildly displaced fracture of the proximal right femoral shaft extending into the lesser trochanter. Dictated by: Karen Fair MD The radiology attending physician has personally reviewed this study, and had reviewed and/or edited this written report and agrees with it. Electronically signed by: Toi Milan M.D. Narrative 08/23/2024 4:11 PM SCALING MACHINE OPERATOR EXAMINATION: XR PELVIS 1 OR 2 VIEWS XR FEMUR RIGHT 2 OR MORE VIEWS XR HIP RIGHT 2 OR 3 VIEWS HISTORY: Fall FINDINGS: Pelvis: 1 radiograph of the pelvis is submitted for interpretation. Comparison radiograph dated 08/23/2024, 8:47 PM. Scattered surgical clips and herniorrhaphy coils are present. A spinal cord stimulator generator projects over the left hemipelvis. A intramedullary nail is present in the right femur. Partially imaged fracture of the proximal right femoral shaft. Moderate bilateral hip osteoarthritis. The femoral heads are well-seated bilaterally. Partially imaged S-shaped scoliotic curvature of the lumbar spine, severe multilevel degenerative disc disease. Right femur: 4 radiographs of the right femur submitted for interpretation. Intramedullary nail in the proximal right femur. Extra-articular obliquely oriented mildly displaced fracture of the proximal right femoral shaft extending into the lesser trochanter. Severe medial predominant tricompartmental right knee osteoarthritis. No right knee effusion. Right hip: 2 radiographs of the right hip are submitted for interpretation. Redemonstrated proximal right femoral shaft fracture. The proximal end of the intramedullary nail extends beyond the contour of the right greater trochanter. Procedure Note Toi Milan MD - 08/23/2024 EXAMINATION: XR PELVIS 1 OR 2 VIEWS XR FEMUR RIGHT 2 OR MORE VIEWS XR HIP RIGHT 2 OR 3 VIEWS HISTORY: Fall FINDINGS: Pelvis: 1 radiograph of the pelvis is submitted for interpretation. Comparison radiograph dated 08/23/2024, 8:47 PM. Scattered surgical clips and herniorrhaphy coils are present. A spinal cord stimulator generator projects over the left hemipelvis. A intramedullary nail is present in the right femur. Partially imaged fracture of the proximal right femoral shaft. Moderate bilateral hip osteoarthritis. The femoral heads are well-seated bilaterally. Partially imaged S-shaped scoliotic curvature of the lumbar spine, severe multilevel degenerative disc disease. Right femur: 4 radiographs of the right femur submitted for interpretation. Intramedullary nail in the proximal right femur. Extra-articular obliquely oriented mildly displaced fracture of the proximal right femoral shaft extending into the lesser trochanter. Severe medial predominant tricompartmental right knee osteoarthritis. No right knee effusion. Right hip: 2 radiographs of the right hip are submitted for interpretation. Redemonstrated proximal right femoral shaft fracture. The proximal end of the intramedullary nail extends beyond the contour of the right greater trochanter. IMPRESSION: Extra-articular obliquely oriented mildly displaced fracture of the proximal right femoral shaft extending into the lesser trochanter. Dictated by: Karen Fair MD The radiology attending physician has personally reviewed this study, and had reviewed and/or edited this written report and agrees with it. Electronically signed by: Toi Milan M.D. Minor Barnes MD IMG XR PROCEDURES Final Re sult * XR Femur Right 2 or More Views (08/23/2024 3:35 PM SCALING MACHINE OPERATOR) Anatomical Region Laterality Modality Lower Extremities, Thigh, Femur Right Computed Radiography 08/23/2024 4:08 PM SCALING MACHINE OPERATOR Impressions 08/23/2024 4:11 PM SCALING MACHINE OPERATOR Extra-articular obliquely oriented mildly displaced fracture of the proximal right femoral shaft extending into the lesser trochanter. Dictated by: Karen Fair MD The radiology attending physician has personally reviewed this study, and had reviewed and/or edited this written report and agrees with it. Electronically signed by: Toi Milan M.D. Narrative 08/23/2024 4:11 PM SCALING MACHINE OPERATOR EXAMINATION: XR PELVIS 1 OR 2 VIEWS XR FEMUR RIGHT 2 OR MORE VIEWS XR HIP RIGHT 2 OR 3 VIEWS HISTORY: Fall FINDINGS: Pelvis: 1 radiograph of the pelvis is submitted for interpretation. Comparison radiograph dated 08/23/2024, 8:47 PM. Scattered surgical clips and herniorrhaphy coils are present. A spinal cord stimulator generator projects over the left hemipelvis. A intramedullary nail is present in the right femur. Partially imaged fracture of the proximal right femoral shaft. Moderate bilateral hip osteoarthritis. The femoral heads are well-seated bilaterally. Partially imaged S-shaped scoliotic curvature of the lumbar spine, severe multilevel degenerative disc disease. Right femur: 4 radiographs of the right femur submitted for interpretation. Intramedullary nail in the proximal right femur. Extra-articular obliquely oriented mildly displaced fracture of the proximal right femoral shaft extending into the lesser trochanter. Severe medial predominant tricompartmental right knee osteoarthritis. No right knee effusion. Right hip: 2 radiographs of the right hip are submitted for interpretation. Redemonstrated proximal right femoral shaft fracture. The proximal end of the intramedullary nail extends beyond the contour of the right greater trochanter. Procedure Note Toi Milan MD - 08/23/2024 EXAMINATION: XR PELVIS 1 OR 2 VIEWS XR FEMUR RIGHT 2 OR MORE VIEWS XR HIP RIGHT 2 OR 3 VIEWS HISTORY: Fall FINDINGS: Pelvis: 1 radiograph of the pelvis is submitted for interpretation. Comparison radiograph dated 08/23/2024, 8:47 PM. Scattered surgical clips and herniorrhaphy coils are present. A spinal cord stimulator generator projects over the left hemipelvis. A intramedullary nail is present in the right femur. Partially imaged fracture of the proximal right femoral shaft. Moderate bilateral hip osteoarthritis. The femoral heads are well-seated bilaterally. Partially imaged S-shaped scoliotic curvature of the lumbar spine, severe multilevel degenerative disc disease. Right femur: 4 radiographs of the right femur submitted for interpretation. Intramedullary nail in the proximal right femur. Extra-articular obliquely oriented mildly displaced fracture of the proximal right femoral shaft extending into the lesser trochanter. Severe medial predominant tricompartmental right knee osteoarthritis. No right knee effusion. Right hip: 2 radiographs of the right hip are submitted for interpretation. Redemonstrated proximal right femoral shaft fracture. The proximal end of the intramedullary nail extends beyond the contour of the right greater trochanter. IMPRESSION: Extra-articular obliquely oriented mildly displaced fracture of the proximal right femoral shaft extending into the lesser trochanter. Dictated by: Karen Fair MD The radiology attending physician has personally reviewed this study, and had reviewed and/or edited this written report and agrees with it. Electronically signed by: Toi Milan M.D. Minor Barnes MD IMG XR PROCEDURES Final Re sult * XR Pelvis 1 or 2 Views (08/23/2024 3:34 PM SCALING MACHINE OPERATOR) Anatomical Region Laterality Modality Body, Pelvis N/A Computed Radiogr aphy 08/23/2024 4:08 PM SCALING MACHINE OPERATOR Impressions 08/23/2024 4:11 PM SCALING MACHINE OPERATOR Extra-articular obliquely oriented mildly displaced fracture of the proximal right femoral shaft extending into the lesser trochanter. Dictated by: Karen Fair MD The radiology attending physician has personally reviewed this study, and had reviewed and/or edited this written report and agrees with it. Electronically signed by: Toi Milan M.D. Narrative 08/23/2024 4:11 PM SCALING MACHINE OPERATOR EXAMINATION: XR PELVIS 1 OR 2 VIEWS XR FEMUR RIGHT 2 OR MORE VIEWS XR HIP RIGHT 2 OR 3 VIEWS HISTORY: Fall FINDINGS: Pelvis: 1 radiograph of the pelvis is submitted for interpretation. Comparison radiograph dated 08/23/2024, 8:47 PM. Scattered surgical clips and herniorrhaphy coils are present. A spinal cord stimulator generator projects over the left hemipelvis. A intramedullary nail is present in the right femur. Partially imaged fracture of the proximal right femoral shaft. Moderate bilateral hip osteoarthritis. The femoral heads are well-seated bilaterally. Partially imaged S-shaped scoliotic curvature of the lumbar spine, severe multilevel degenerative disc disease. Right femur: 4 radiographs of the right femur submitted for interpretation. Intramedullary nail in the proximal right femur. Extra-articular obliquely oriented mildly displaced fracture of the proximal right femoral shaft extending into the lesser trochanter. Severe medial predominant tricompartmental right knee osteoarthritis. No right knee effusion. Right hip: 2 radiographs of the right hip are submitted for interpretation. Redemonstrated proximal right femoral shaft fracture. The proximal end of the intramedullary nail extends beyond the contour of the right greater trochanter. Procedure Note Toi Milan MD - 08/23/2024 EXAMINATION: XR PELVIS 1 OR 2 VIEWS XR FEMUR RIGHT 2 OR MORE VIEWS XR HIP RIGHT 2 OR 3 VIEWS HISTORY: Fall FINDINGS: Pelvis: 1 radiograph of the pelvis is submitted for interpretation. Comparison radiograph dated 08/23/2024, 8:47 PM. Scattered surgical clips and herniorrhaphy coils are present. A spinal cord stimulator generator projects over the left hemipelvis. A intramedullary nail is present in the right femur. Partially imaged fracture of the proximal right femoral shaft. Moderate bilateral hip osteoarthritis. The femoral heads are well-seated bilaterally. Partially imaged S-shaped scoliotic curvature of the lumbar spine, severe multilevel degenerative disc disease. Right femur: 4 radiographs of the right femur submitted for interpretation. Intramedullary nail in the proximal right femur. Extra-articular obliquely oriented mildly displaced fracture of the proximal right femoral shaft extending into the lesser trochanter. Severe medial predominant tricompartmental right knee osteoarthritis. No right knee effusion. Right hip: 2 radiographs of the right hip are submitted for interpretation. Redemonstrated proximal right femoral shaft fracture. The proximal end of the intramedullary nail extends beyond the contour of the right greater trochanter. IMPRESSION: Extra-articular obliquely oriented mildly displaced fracture of the proximal right femoral shaft extending into the lesser trochanter. Dictated by: Karen Fair MD The radiology attending physician has personally reviewed this study, and had reviewed and/or edited this written report and agrees with it. Electronically signed by: Toi Milan M.D. Minor Barnes MD IMG XR PROCEDURES Final Re sult * XR Chest 1 Vw Portable (08/23/2024 3:34 PM SCALING MACHINE OPERATOR) Anatomical Region Laterality Modality Body, Chest N/A Computed Radiogr aphy 08/23/2024 4:01 PM SCALING MACHINE OPERATOR Impressions 08/23/2024 4:11 PM SCALING MACHINE OPERATOR The heart and mediastinal contours are normal. There is no mass or consolidation. There is no lymphadenopathy. There are no pleural effusions. There is no pneumothorax. Diffuse osteopenia noted. Dictated by: Karen Fair MD The radiology attending physician has personally reviewed this study, and had reviewed and/or edited this written report and agrees with it. Electronically signed by: Toi Milan M.D. Narrative 08/23/2024 4:11 PM SCALING MACHINE OPERATOR EXAMINATION: 1 view chest radiograph Procedure Note Toi Milan MD - 08/23/2024 EXAMINATION: 1 view chest radiograph IMPRESSION: The heart and mediastinal contours are normal. There is no mass or consolidation. There is no lymphadenopathy. There are no pleural effusions. There is no pneumothorax. Diffuse osteopenia noted. Dictated by: Karen Fair MD The radiology attending physician has personally reviewed this study, and had reviewed and/or edited this written report and agrees with it. Electronically signed by: Toi Milan M.D. Minor Barnes MD IMG XR PROCEDURES Final Re sult * (ABNORMAL) Differential, auto (08/23/2024 3:09 PM SCALING MACHINE OPERATOR) Neutrophil abs 11.1(H) 1.5 - 6.5 K/cumm Imm gran abs 0.1 0.0 - 0.1 K/cumm [facility] Lymphocyte abs 1.3 0.8 - 3.3 K/cumm [facility] Monocyte abs 0.7 0.2 - 0.8 K/cumm [facility] Eosinophil abs 0.0 0.0 - 0.5 K/cumm [facility] Basophil abs 0.1 0.0 - 0.1 K/cumm [facility] Neutrophil pct 83.7 % [facility] Comment: Interpretive Data Percent cell count reference ranges are not reported, since discordance with absolute values may lead to misinterpretation of CBC data. Current Interpretive Data was last revised on 2017. Imm gran pct 0.4 % [facility] Comment: Interpretive Data Percent cell count reference ranges are not reported, since discordance with absolute values may lead to misinterpretation of CBC data. Current Interpretive Data was last revised on 2017. Lymphocyte pct 9.9 % [facility] Comment: Interpretive Data Percent cell count reference ranges are not reported, since discordance with absolute values may lead to misinterpretation of CBC data. Current Interpretive Data was last revised on 2017. Monocyte pct 5.1 % [facility] Comment: Interpretive Data Percent cell count reference ranges are not reported, since discordance with absolute values may lead to misinterpretation of CBC data. Current Interpretive Data was last revised on 2017. Eosinophil pct 0.2 % [facility] Comment: Interpretive Data Percent cell count reference ranges are not reported, since discordance with absolute values may lead to misinterpretation of CBC data. Current Interpretive Data was last revised on 2017. Basophil pct 0.7 % [facility] Comment: Interpretive Data Percent cell count reference ranges are not reported, since discordance with absolute values may lead to misinterpretation of CBC data. Current Interpretive Data was last revised on 2017. Blood 08/23/2024 3:09 PM SCALING MACHINE OPERATOR 08/23/2024 3:24 PM SCALING MACHINE OPERATOR Minor Barnes MD LAB BLOOD ORDERABLES Final Result [facility] [place] [address] * (ABNORMAL) CBC with auto differential (08/23/2024 3:09 PM SCALING MACHINE OPERATOR) WBC 13.2(H) 3.8 - 9.9 K/cumm Hgb 12.9 11.9 - 15.5 g/dL [facility] Hct 40.3 35.6 - 45.5 % [facility] Plt 309 150 - 400 K/cumm [facility] MPV 9.8 9.1 - 12.3 fL [facility] RBC 4.62 3.90 - 5.20 M/cumm [facility] MCV 87.2 81.3 - 96.4 fL [facility] MCH 27.9 27.1 - 33.3 pg [facility] MCHC 32.0(L) 32.3 - 35.7 g/dL [facility] RDW CV 14.6 11.1 - 14.9 % [facility] RDW SD 46.9 35.7 - 48.1 fL [facility] NRBC abs 0.00 0.00 - 0.01 K/cumm [facility] Blood 08/23/2024 3:09 PM SCALING MACHINE OPERATOR 08/23/2024 3:24 PM SCALING MACHINE OPERATOR Minor Barnes MD LAB BLOOD ORDERABLES Final Result Performing Organization Address [facility] de Phone Number [place] [facility] [place] [address] * aPTT (08/23/2024 3:09 PM SCALING MACHINE OPERATOR) aPTT 29 28 - 38 sec Comment: Interpretive Data Heparin therapeutic range: 66.0 - 100.0 seconds. Range based on correlation with therapeutic heparin activity range of 0.3 - 0.7 Units/mL. Current interpretive data was last revised on 2023. Blood 08/23/2024 3:09 PM SCALING MACHINE OPERATOR 08/23/2024 3:28 PM SCALING MACHINE OPERATOR Minor Barnes MD LAB BLOOD ORDERABLES Final Result Performing Organization Address [facility] Co de Phone Number [facility] [place] [address] * (ABNORMAL) Protime-INR (08/23/2024 3:09 PM SCALING MACHINE OPERATOR) PT 13.3(H) 9.7 - 13.0 sec INR 1.23(H) 0.90 - 1.20 [facility] Comment: Interpretive data Oral anticoagulant therapeutic ranges: Venous thromboembolism prophylaxis or treatment: 2.0-3.0 CARDIOLOGY Standard range: 2.0-3.0 High-intensity range: 2.5-3.5 Refer to indication-specific guidelines for appropriate target ranges for prosthetic heart valve replacement. Current interpretive data was last revised on 2019. Blood 08/23/2024 3:09 PM SCALING MACHINE OPERATOR 08/23/2024 3:28 PM SCALING MACHINE OPERATOR Minor Barnes MD LAB BLOOD ORDERABLES Final Result Performing Organization Address [facility] Co de Phone Number [facility] [place] [address] * Type and screen (08/23/2024 3:09 PM SCALING MACHINE OPERATOR) ABO Rh O Positive Markos, indirect Negative [facility] Blood 08/23/2024 3:09 PM SCALING MACHINE OPERATOR 08/23/2024 3:20 PM SCALING MACHINE OPERATOR Narrative [facility] - 08/23/2024 4:07 PM SCALING MACHINE OPERATOR Has the patient had Daratumumab or Isatuximab in the past 6 months?->Unknown Result [facility] Minor Barnes MD LAB BLOOD BANK TEST ORDERA BLES Final Result Performing Organization Address [facility] de Phone Number [facility] One [facility] [place] [address] * Neuro CT Outside Reference (08/23/2024 2:36 PM SCALING MACHINE OPERATOR) Impressions [facility] - 08/23/2024 2:36 PM SCALING MACHINE OPERATOR These images are for Reference purposes only and have not been reviewed by [facility] Radiology. There will be no report generated by a [facility] Radiologist. Narrative [facility] - 08/23/2024 2:36 PM SCALING MACHINE OPERATOR EXAMINATION: Images For Reference Purposes Only Felice Goyal MD IMG CT PROCEDURES Anna l Result Performing Organization Address [facility] Co de Phone Number [facility] * XR Outside Reference (08/23/2024 2:33 PM SCALING MACHINE OPERATOR) Impressions [facility] - 08/23/2024 2:33 PM SCALING MACHINE OPERATOR These images are for Reference purposes only and have not been reviewed by [facility] Radiology. There will be no report generated by a [facility] Radiologist. Narrative [facility] - 08/23/2024 2:33 PM SCALING MACHINE OPERATOR EXAMINATION: Images For Reference Purposes Only Felice Goyal MD IMG XR PROCEDURES Anna l Result Performing Organization Address [facility] de Phone Number [email or web address] * XR Outside Reference (08/23/2024 2:30 PM SCALING MACHINE OPERATOR) Impressions [facility] - 08/23/2024 2:30 PM SCALING MACHINE OPERATOR These images are for Reference purposes only and have not been reviewed by [facility] Radiology. There will be no report generated by a [facility] Radiologist. Narrative [facility] - 08/23/2024 2:30 PM SCALING MACHINE OPERATOR EXAMINATION: Images For Reference Purposes Only Felice Goyal MD IMG XR PROCEDURES Anna l Result Performing Organization Address [facility] Phone Number [email or web address] * POCT ketone, blood (08/23/2024 2:05 PM SCALING MACHINE OPERATOR) Ketones, Blood, POC 0.2 0.0 - 0.5 mmol/L Blood 08/23/2024 2:05 PM SCALING MACHINE OPERATOR 08/23/2024 2:05 PM SCALING MACHINE OPERATOR Martin Pinto MD LAB POCT ORDERABLES - DE VICE Final Result Performing Organization Address [facility] Phone Number ROCHELLE LEVY [facility] Department [place] [address] * (ABNORMAL) POCT glucose (08/23/2024 2:04 PM SCALING MACHINE OPERATOR) Glucose, POC 217(H) 70 - 199 mg/dL Comment:Glu2: RN/ Notified Glucose comment 1 Glu2: RN/MD Notified [facility] Blood 08/23/2024 2:04 PM SCALING MACHINE OPERATOR 08/23/2024 2:04 PM SCALING MACHINE OPERATOR us Martin Pinto MD LAB POCT ORDERABLES - DE VICE Final Result [facility] [place] [address] * Dexa Axial Skeleton Bone Density 1 or 2 Site (06/02/2021 3:15 PM CDT) Anatomical Region Laterality Modality Body N/A Mammography 06/05/2021 7:05 AM CDT Narrative 06/05/2021 7:06 AM CDT EXAM DESCRIPTION: DEXA AXIAL SKELETON BONE DENSITY 1 OR MORE SITES REASON FOR STUDY: 80 y/o year old F with given history of screening. [employer]x Architect/Model: Hypecal A ([id number]/N [id number]) CLINICAL INFORMATION: Current height: 65 inches Maximum height: 65.5 inches Weight: 167 pounds Risk factors: Adult fracture, cancer, postmenopausal COMPARISON: None available. FINDINGS: AP LUMBAR SPINE L1-L4: Total BMD is 1.122 g/cm2 T-score is 0.7 LEFT HIP: Total BMD is 0.702 g/cm2 T-score is -2.0 Femoral neck BMD is 0.527 g/cm2 T-score is -2.9 IMPRESSION: Based on the left femoral neck bone mineral density (T-score -2.9) the patient has osteoporosis. REFERENCE: Bone mineral density: Normal (T-score above or = -1.0) Low bone mass (T-score between -1.0 and -2.5) replaces the previously used term osteopenia Osteoporosis (T-score = or below -2.5) Medical evaluation for secondary causes of low bone mineral density may be appropriate. FRAX is a World Health Organization validated fracture risk assessment tool that calculates a person's 10 year probability of a major osteoporosis related fracture and hip fracture. According to the National Osteoporosis Foundation guidelines, postmenopausal women and men age 50 or older with low bone mass and a 10 year probability of a major osteoporosis related fracture = or greater than 20% or a 10 year probability of a hip fracture = or greater than 3% should be considered for treatment. For further information, including treatment recommendations, please refer to the 2013 ISCD Official Positions (http://www.iscd.org) and the NOF's Clinician's Guide to Prevention and Treatment of Osteoporosis (http://www.nof.org/professionals/clinical-guidelines) THIS IS AN ELECTRONICALLY VERIFIED FINAL REPORT 06/05/2021 7:06 AM - Electronically signed by Toi Jackson M.D. MF: [id number] Report ID: [id number] Reading Location: [id number] Procedure Note Toi Jackson MD - 06/05/2021 EXAM DESCRIPTION: DEXA AXIAL SKELETON BONE DENSITY 1 OR MORE SITES REASON FOR STUDY: 80 y/o year old F with given history ofscreening. Ux Architect/Model: Hypecal A ([id number]/N [id number]) CLINICAL INFORMATION: Current height: 65 inches Maximum height: 65.5 inches Weight: 167 pounds Risk factors: Adult fracture, cancer, postmenopausal COMPARISON: None available. FINDINGS: AP LUMBAR SPINE L1-L4: Total BMD is 1.122 g/cm2 T-score is 0.7 LEFT HIP: Total BMD is 0.702 g/cm2 T-score is -2.0 Femoral neck BMD is 0.527 g/cm2 T-score is -2.9 IMPRESSION: Based on the left femoral neck bone mineral density (T-score -2.9) the patient has osteoporosis. REFERENCE: Bone mineral density: Normal (T-score above or = -1.0) Low bone mass (T-score between -1.0 and -2.5) replaces thepreviously used term osteopenia Osteoporosis (T-score = or below -2.5) Medical evaluation for secondary causes of low bone mineral density may be appropriate. FRAX is a World Health Organization validated fracture risk assessmenttool that calculates a person's 10 year probability of a major osteoporosisrelated fracture and hip fracture. According to the National OsteoporosisFoundation guidelines, postmenopausal women and men age 50 or older with low bonemass and a 10 year probability of a major osteoporosis related fracture = or greater than 20% or a 10 year probability of a hip fracture = or greaterthan 3% should be considered for treatment. For further information, including treatment recommendations, please referto the 2013 ISCD Official Positions (http://www.iscd.org) and the NOF's Clinician's Guide to Prevention and Treatment of Osteoporosis (http://www.nof.org/professionals/clinical-guidelines) THIS IS AN ELECTRONICALLY VERIFIED FINAL REPORT 06/05/2021 7:06 AM - Electronically signed by Toi Jackson M.D. MF: [email or web address] Report ID: [id number] Reading Location: [place] [address] [address] [facility] IMG DXA PROCEDURES Final Re sult * (ABNORMAL) Hemoglobin A1c (05/22/2021 9:55 AM CDT) Hgb A1C 7.1(H) 4.0 - 5.6 % ROCHELLE DELAROSA Estimated Average Glucose 157 mg/dL ROCHELLE DELAROSA Comment: The ADA recommends reporting an estimated Average Glucose (eAG) with all Hemoglobin A1c results using the equation derived from a study of 507 normal and diabetic adults. Minority populations were underrepresented and children were not included. (Diabetes Care 31:1921-4364, 2008). The eAG is not equivalent to a fasting glucose. Blood 05/22/2021 9:55 AM CDT 05/22/2021 5:19 PM CDT us [facility] LAB BLOOD ORDERABLES Final Result ROCHELLE [address] [facility] [place] [address] * (ABNORMAL) Diabetic Eye Exam (12/10/2020) us Historical Provider MD HEALTH MAINTENANCE Final Result from Last 3 Months or Most Recently Relevant to Health Maintenance Insurance FOR LIFE MEDICARE MEDICARE FOR LIFE MEDICARE FOR LIFE Advance Directives For more information, please contact: [phone] * Full Code (Latest Code Status on File) Date Activated Date Inactivated Comments 08/23/2024 10:14 PM 08/28/2024 12:08 AM * Full Code Date Activated Date Inactivated Comments 03/07/2020 10:09 AM 03/07/2020 4:03 PM Care Teams Fur Tanner Relationship Specialty Start Date End Date Tashi Christianson MD [address] [place] [address] PCP - General Family Medicine 05/09/22 [place] [address] [address] [place] [address] Nurse Practitioner Nurse Practitioner 04/30/24
--- OUTSIDE RECORDS SUMMARY | 2024-09-23 12:20 | XMS_ITS | Referral Summary ---
Author Organization [facility] al Address [address] [place] [address] Care Team Providers Care Security Assurance Analyst Name Role Phone Tashi Christianson MD Primary Care Provider Pedro Roy NP Unavailable [phone] Encounters Date Type Department Care Team Description 09/16/2024 12:30 PM BUSINESS AND SERVICES INSTRUCTOR Office Visit [facility] Orthopaedic Surgery [address] [place] [address] 6[address] [place] [address] [place] [phone] Elena Arora MD Closed fracture of shaft of right femur, unspecified fracture morphology, initial encounter (HCC) (Primary Dx) 08/23/2024 1:51 PM BUSINESS AND SERVICES INSTRUCTOR - 08/27/2024 7:30 PM BUSINESS AND SERVICES INSTRUCTOR Hospital Encounter [facility] [address] [place] [phone] Felice Goyal MD Snyder, Jason Andrew, MD Fall, initial encounter (Primary Dx); Closed fracture of shaft of right femur, unspecified fracture morphology, initial encounter (HCC) Discharge Disposition: Discharge to an Rehab facility 08/24/2024 Orders Only [facility] Orthopaedic Surgery [address] [place] [address] 6[address] [place] [address] [place] [address] Elena Arora MD Periprosthetic fracture of shaft of femur (Primary Dx) 08/24/2024 5:35 PM BUSINESS AND SERVICES INSTRUCTOR Anesthesia Event [facility] Operating Room [address] [place] [address] Davina Mckeon MD Dippolito, Jenny Irene, NP 08/24/2024 6:00 PM BUSINESS AND SERVICES INSTRUCTOR - 08/24/2024 8:40 PM BUSINESS AND SERVICES INSTRUCTOR Surgery [facility] Operating Room [address] [place] [phone] Elena Arora MD REMOVAL/EXCHANGE INTERMEDULLARY NAILING - FEMUR; ORIF DISTAL FEMUR 07/28/2024 Documentation [facility] Surgery [address] [place] [address] [address] [place] [address] Nina Escalante RMA from Last 3 Months Allergies Active Allergy Reactions Criticality Noted Date [...] 24 hr tabletIndications: Coronary artery disease involving [place] coronary artery of [place] heart with angina pectoris (HCC) Take 1 [...] right femur, unspecified fracture morphology, initial encounter ([facility]) Take 2 tablets (320 mg of [...] 08/26/2024 Assessment & Plan (08/26/2024 10:19 AM BUSINESS AND SERVICES INSTRUCTOR): Fell getting out of bed going to walker ABLA (acute blood loss anemia) 08/26/2024 Assessment & Plan (08/27/2024 11:52 AM BUSINESS AND SERVICES INSTRUCTOR): 08/23 On admission hgb 12.9 Pt went [...] 08/26/2024 Assessment & Plan (08/27/2024 11:53 AM BUSINESS AND SERVICES INSTRUCTOR): On admission Cr 1.11 08/26 1.5 One liter of fluid Now mid day 1.23 Monitor BM daily if recurrent elevation transfuse one unit of RBC. -08/27 stable for discharge, encourage PO intake. Cervical radiculopathy 08/25/2024 Assessment & Plan (08/27/2024 11:50 AM BUSINESS AND SERVICES INSTRUCTOR): 08/25 c/o right neck pain post surgery with pain in right index/thumb/palm. -heat/cold compress -range motion/ PT/OT -gabapentin increase to Q8 hours -08/27 pain under control,will have pain regimens on discharge. Right hand pain 08/25/2024 Assessment & Plan (08/27/2024 11:52 AM BUSINESS AND SERVICES INSTRUCTOR): 08/25 Right hand and wrist xray rule [...] 08/24/2024 Assessment & Plan (08/27/2024 11:48 AM BUSINESS AND SERVICES INSTRUCTOR): Chronic Glipizide 5 mg, Metformin 500 mg [...] 08/24/2024 Assessment & Plan (08/27/2024 11:48 AM BUSINESS AND SERVICES INSTRUCTOR): Chronic Atorvastatin 40 mg daily Follow up with previously established provider for ongoing evaluation. Encounter for medication management 08/24/2024 Discharge planning issues 08/24/2024 Assessment & Plan (08/27/2024 11:49 AM BUSINESS AND SERVICES INSTRUCTOR): 08/25 hgb monitoring post surgical procedure, need to work with PT/OT and pain control. ADD 08/27 08/27 Patient is medically stable for discharge, SW/CM updated. Discharge SNF today Chronic pain 08/24/2024 Assessment & Plan (08/27/2024 11:49 AM BUSINESS AND SERVICES INSTRUCTOR): Followed by pain managed Morphine intrathecal management monthly Follow up with previously established provider for ongoing evaluation. Depression 08/24/2024 Assessment & Plan (08/27/2024 11:49 AM BUSINESS AND SERVICES INSTRUCTOR): Lexapro 20 mg daily, continue on discharge Follow up with previously established provider for ongoing evaluation. Periprosthetic fracture of shaft of femur 2024 Closed fracture of shaft of right femur 08/23/19 25 Assessment & Plan (08/27/2024 11:48 AM BUSINESS AND SERVICES INSTRUCTOR): Orthopedic consult Right isaac implant mid shaft femur fracture 08/24 OR SUSI, long CMN R isaac-implant midshaft femur fx. Pain control TTWB ASA 81 mg BID x 14 days recommendation from orthopedic at discharge Wound Care: Surgical dressings will be changed on POD3. Okay for nursing to reinforce dressings PRN if they become soiled or have shadowing before that time Sutures/Daniel: to be removed 3 weeks after surgical date (Sep 14). Please include on discharge orders if patient is going to a facility. If the patient is still in the hospital at that time they will be removed by the orthopedic team. Follow-Up: Patient has follow up scheduled on 10/07/[address] Arora located at [facility] Aspirin 81mg BID x 14 days, Bone health follow up. 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 Has had ileal conduit since then. -Doing well overall. No worrisome signs. Encounter for colonoscopy due to history of colo sourav polyp 02/16/2020 Overview (02/16/2020): Added automatically from request for surgery [id number] Closed fracture of phalanx of foot 07/28/2019 Paroxysmal atrial fibrillation (CMS/HCC) 019 Assessment & Plan (08/27/2024 11:47 AM BUSINESS AND SERVICES INSTRUCTOR): Hold home Eliquis Toprol XL 37.5mg daily ---> IR while admitted bid 25 and 12.5 [id number]: 5 -will hold Eliquis and start ASA on discharge, continue home metoprolol Follow up with your PCP for medication evaluation and ongoing evaluation. Chronic anticoagulation 03/31/2019 PSVT (paroxysmal supraventricular tachycardia) ( CMS/HCC) 03/09/2019 Near syncope 02/16/2019 Palpitations 02/16/2019 TIA (transient ischemic attack) 02/16/2019 Esophageal ulcer 08/14/2018 Assessment & Plan (08/27/2024 11:47 AM BUSINESS AND SERVICES INSTRUCTOR): Chronic Omeprazole 40 mg daily --->pantoprazole while admitted. Follow up with previously established provider for ongoing evaluation. Myocardial bridge 05/01/2018 Abnormal stress test 04/11/2018 Acquired hypothyroidism 04/11/2018 Assessment & Plan (08/27/2024 11:47 AM BUSINESS AND SERVICES INSTRUCTOR): Levothyroxine 50 mcg daily Follow up with previously established provider for ongoing evaluation. Hypertension associated with diabetes 04/11/2018 Assessment & Plan (08/27/2024 11:19 AM BUSINESS AND SERVICES INSTRUCTOR): Chronic Losartan 25 mg daily HCTZ 25mg daily hold, Irbesartan 75mg, Amlodipine/Atorvastatin 10/40mg daily -08/27 stable for DC Follow up with previously established provider for ongoing evaluation. Mixed diabetic hyperlipidemi a associated with type 2 diabetes mellitus ([facility]) 04/11/2018 SHEETS (dyspnea on exertion) 04/11/2018 Coronary artery disease invo lving [place] coronary artery of [place] heart without angina pectoris 04/11/2018 S/P coronary artery stent placement 04/11/2018 Benign colon polyp 11/18/2017 BPPV (benign paroxysmal posi tional vertigo), unspecified laterality 02/01/2017 Abnormal gait 02/01/2017 Active cochleovestibular Meniere's disease 02/01 Horizontal vertigo, unspecified laterality 12/19 Peripheral vertigo 11/19/2016 History of ileal conduit 10/23/2016 Assessment & Plan (10/04/2020 3:42 PM BUSINESS AND SERVICES INSTRUCTOR): -Stoma pink and moist -Urine clear, yellow and draining well -Skin around ostomy bag is clean and dry Fecal incontinence 09/19/2011 Immunizations Name Administration Dates Next Due Influenza, Quadrivalent, Rec ombinant, Egg Free, Preservative Free, Intramuscular 05/18/2020 Influenza, Unspecified 05/17/2021 Pneumococcal Conjugate PCV 13 02/21/2021 Social History Tobacco Use Types Packs/Day Years [...] on file Legal Sex Female 11:33 PM BUSINESS AND SERVICES INSTRUCTOR Gender Identity Not on file Sexual Orientation Not on file Occupation Industry Job Start Date Job End Date Retired Not on file Not on file Not on file Last Filed Vital Signs Vital Sign Reading Time Taken Comments Blood Pressure 117/53 08/27/2024 5:33 PM BUSINESS AND SERVICES INSTRUCTOR Pulse 75 08/27/2024 5:33 PM BUSINESS AND SERVICES INSTRUCTOR Temperature 37 C (98.6 F) 08/27/2024 4:22 PM BUSINESS AND SERVICES INSTRUCTOR Respiratory Rate 16 08/27/2024 4:22 PM BUSINESS AND SERVICES INSTRUCTOR Oxygen Saturation 96% 08/27/2024 4:22 PM BUSINESS AND SERVICES INSTRUCTOR Inhaled Oxygen Concentration - - Weight 63.5 kg (140 lb) 08/23/2024 9:55 PM BUSINESS AND SERVICES INSTRUCTOR Height 165.1 cm (5' 5 ) 08/23/2024 9:55 PM BUSINESS AND SERVICES INSTRUCTOR Body Mass Index 23.3 08/23/2024 9:55 PM BUSINESS AND SERVICES INSTRUCTOR Plan of Treatment Not on file Medical Devices Implanted Type Area Mangle Feeder Device Identifier Shelf Expiration Date Model / Serial / Lot [employer]hew[employer]Rich[employer]/Ort ho Cable Bone Cerclage With Crimp Evos Stainless Steel [id number] - [id number] Implanted:Qty: 1 on 08/24/2024 at [facility] Cable Right: Femur [employer]/ Ortho [id number] / / [employer]/Ort ho Cable Bone Cerclage With Crimp Evos Stainless Steel [id number] - [id number] Implanted:Qty: 1 on 08/24/2024 by Elena Arora MD at [facility] Cable Right: Femur [employer]/ Ortho [id number] / / [employer]Rich[employer]/Ort ho Nail Intramedullary Right 125 Degree Femoral Intertan [id number] Titanium [id number] - [id number] Implanted:Qty: 1 on 08/24/2024 by Elena Arora MD at [facility] Nail Right: Femur [employer]/ Ortho [id number] 10/08/2030 [id number] / / [id number] 14h R Pp Distal Femur Plate Implanted:Qty: 1 on 08/24/2024 by Elena Arora MD at [facility] Plate Right: Femur [employer] [id number] / / Description:Inactive. Michellec c june used [employer]Rich[employer]/Ort ho Intertan 4.5mm 90mm 85mm Lag Compression Integrate Interlock [id number] - [id number] Implanted:Qty: 1 on 08/24/2024 by Elena Arora MD at [facility] Screw Right: Femur [employer]/ Ortho [id number] / / [employer]/Ort ho Screw Bone Locking Femoral Self Tapping Full Thread Low Profile Trigen Stainless Steel 5.0x32.5mm [id number] - [id number] Implanted:Qty: 1 on 08/24/2024 by Elena Arora MD at [facility] Screw Right: Femur [employer]/ Ortho [id number] / / [employer]Rich[employer]/Ort ho 5mm 35mm Low Profile Internal Hex Femur Screw Bone Trigen [id number] - [id number] Implanted:Qty: 1 on 08/24/2024 by Elena Arora MD at [facility] Screw Right: Femur [employer]/ Ortho [id number] / / [employer]Rich[employer]/Ort ho Screw Bone Cortical St Evos 4.5x34mm [id number] - [id number] Implanted:Qty: 2 on 08/24/2024 by Elena Arora MD at [facility] Screw Right: Femur [employer]/ Ortho [id number] / / [employer]Rich[employer]/Ort ho Screw Bone Cortical St Evos 4.5x30mm [id number] - [id number] Implanted:Qty: 2 on 08/24/2024 by Elena Arora MD at [facility] Screw Right: Femur [employer]/ Ortho [id number] / / [employer]Rich[employer]/Ort ho Screw Bone Cortical St Evos 4.5x36mm [id number] - [id number] Implanted:Qty: 1 on 08/24/2024 by Elena Arora MD at [facility] Screw Right: Femur [employer]/ Ortho [id number] / / [employer]/Ort ho Evos 3.5mm 38mm Self Tap Cortex Screw Bone Sterile [id number] - [id number] Implanted:Qty: 1 on 08/24/2024 by Elena Arora MD at [facility] Screw Right: Femur [employer]/ Ortho [id number] / / [employer]Rich[employer]/Ort ho Evos 4.5mm X 64mm Locking Screw Self-Tapping [id number] - [id number] Implanted:Qty: 2 on 08/24/2024 by Elena Arora MD at [facility] Screw Right: Femur [employer]/ Ortho [id number] / / [employer]Rich[employer]/Ort ho Screw Locking Evos 4.5mm X 60mm Self-Tapping [id number] - [id number] Implanted:Qty: 1 on 08/24/2024 by Elena Arora MD at [facility] Screw Right: Femur [employer]/ Ortho [id number] / / Cypher Cardiac Stent Heart Med[employer]onic Inc Catheter Intrathecal Spinal Segment 2 Piece Silicone Ascenda [id number] 8780 - [id number] Implanted:Qty: 1 on 04/02/2024 by Joshua Ramirez MD at [facility] Left: Back Medtronic Inc 03/10/2026 8780 / / [id number] Medtronic Usa [employer] X Pump Infusion Programmable Ulp Ami 20ml Volume 8667-20 - [id number] - [id number] Implanted:Qty: 1 on 04/02/2024 by Joshua Ramirez MD at [facility] Left: Abdomen Med[employer] X 08/08/2025 8667-20 / [id number] / Medtronic Inc Tyrx 3.35x3in Large Envelope Absorbable Polyarylate Minocycline [id number] - [id number] Implanted:Qty: 1 on 04/02/2024 by Joshua Ramirez MD at [facility] Left: Abdomen Medtronic Inc 11/14/2024 [id number] / / [id number] Medtronic Inc Kit Intrathecal Catheter Revision Segment Terry Removal Ascenda 8785 - [id number] Implanted:Qty: 1 on 04/02/2024 by Joshua Ramirez MD at [facility] Left: Abdomen Med[employer]onic Inc 02/19/2026 8785 / / [id number] [employer]Rich[employer]/Ort ho Screw Bone Cortical St Evos 4.5x28mm [id number] - [id number] Implanted:Qty: 1 on 08/24/2024 by Elena Arora MD at [facility] Right: Femur [employer]/ Ortho [id number] / / [employer]/Ort ho Cable Bone Cerclage With Crimp Evos Stainless Steel [id number] - [id number] Implanted:Qty: 1 on 08/24/2024 at [facility] Right: Femur [employer]/ Ortho [id number] / / 3.5 Non Locking Screw Implanted:Qty: 2 on 08/24/2024 by Elena Arora MD at [facility] Right: Femur [employer] [id number] / / Description:Inactive. Misc c ode used 4.5 Locking Screw Implanted:Qty: 2 on 08/24/2024 by Elena Arora MD at [facility] Right: Femur [employer] [id number] / / Description:Inactive. Misc c ode used Explanted Type Area Mangle Feeder Device Identifier Shelf Expiration Date Model / Serial / Lot [employer]hew/Richco/Orth o Trigen Intertan 11.5mm 38cm Antegrade Intertrochanter Right 125d [id number] - [id number] Explanted:Qty: 1 on 08/24/2024 by Sharan De La Vega MD at [facility] Nail Right: Femur [employer]Rich[employer]/O rtho [id number] 01/08/2028 [id number] / / [id number] Pat[employer]/Rich[employer]/Orth o Screw Bone Cortical St Evos 4.5x34mm [id number] - [id number] Explanted:Qty: 1 on 08/24/2024 at [facility] Screw Right: Femur [employer]/Rich[employer]/O rtho [id number] / / [employer]hew/Richco/Orth o Screw Bone Cortical St Evos 4.5x74mm [id number] - [id number] Explanted:Qty: 1 on 08/24/2024 by Elena Arora MD at [facility] Right: Femur [employer]Rich[employer]/O rtho [id number] / / Procedures Procedure Name Priority Date/Time Associated Diagnosis Comments POCT GLUCOSE DEVICE Routine 08/27/2024 6 :33 PM BUSINESS AND SERVICES INSTRUCTOR POCT GLUCOSE DEVICE Routine 08/27/2024 11:58 AM BUSINESS AND SERVICES INSTRUCTOR POCT GLUCOSE DEVICE Routine 08/27/2024 8 :00 AM BUSINESS AND SERVICES INSTRUCTOR CBC WITHOUT DIFFERENTIAL Routine 08/27/2024 3:20 AM BUSINESS AND SERVICES INSTRUCTOR CBC WITHOUT DIFFERENTIAL Timed 08/27/2024 2:54 AM BUSINESS AND SERVICES INSTRUCTOR TRANSFUSE RED BLOOD CELLS Timed 08/26/2024 11:55 PM BUSINESS AND SERVICES INSTRUCTOR PREPARE RBC Timed 08/26/2024 10:56 PM BUSINESS AND SERVICES INSTRUCTOR EGFR Routine 08/26/2024 9:01 PM BUSINESS AND SERVICES INSTRUCTOR DIFFERENTIAL AUTO Routine 08/26/2024 9:0 1 PM BUSINESS AND SERVICES INSTRUCTOR CBC WITH AUTO DIFFERENTIAL Routine 08/26/2024 9:01 PM BUSINESS AND SERVICES INSTRUCTOR PHOSPHORUS Routine 08/26/2024 9:01 PM BUSINESS AND SERVICES INSTRUCTOR MAGNESIUM Routine 08/26/2024 9:01 PM BUSINESS AND SERVICES INSTRUCTOR BASIC METABOLIC PANEL Routine 08/26/2024 9:01 PM BUSINESS AND SERVICES INSTRUCTOR POCT GLUCOSE DEVICE Routine 08/26/2024 7 :59 PM BUSINESS AND SERVICES INSTRUCTOR POCT GLUCOSE DEVICE Routine 08/26/2024 4 :41 PM BUSINESS AND SERVICES INSTRUCTOR XR HAND RIGHT 1 VIEW IP Routine 08/26/2024 2:21 PM BUSINESS AND SERVICES INSTRUCTOR XR HAND LEFT 3 OR MORE VIEWS IP Routine 08/26/2024 2:21 PM BUSINESS AND SERVICES INSTRUCTOR POCT GLUCOSE DEVICE Routine 08/26/2024 12:22 PM BUSINESS AND SERVICES INSTRUCTOR EGFR Routine 08/26/2024 10:26 AM BUSINESS AND SERVICES INSTRUCTOR BASIC METABOLIC PANEL Routine 08/26/2024 10:26 AM BUSINESS AND SERVICES INSTRUCTOR TYPE AND SCREEN Timed 08/26/2024 10:26 AM BUSINESS AND SERVICES INSTRUCTOR POCT GLUCOSE DEVICE Routine 08/26/2024 8 :12 AM BUSINESS AND SERVICES INSTRUCTOR DIFFERENTIAL AUTO Timed 08/26/2024 5:1 7 AM BUSINESS AND SERVICES INSTRUCTOR CBC WITH AUTO DIFFERENTIAL Timed 08/26/2024 5:17 AM BUSINESS AND SERVICES INSTRUCTOR EGFR Routine 08/26/2024 12:32 AM BUSINESS AND SERVICES INSTRUCTOR DIFFERENTIAL AUTO Timed 08/26/2024 12:32 AM BUSINESS AND SERVICES INSTRUCTOR PHOSPHORUS Routine 08/26/2024 12:32 AM BUSINESS AND SERVICES INSTRUCTOR MAGNESIUM Routine 08/26/2024 12:32 AM BUSINESS AND SERVICES INSTRUCTOR BASIC METABOLIC PANEL Routine 08/26/2024 12:32 AM BUSINESS AND SERVICES INSTRUCTOR CBC WITH AUTO DIFFERENTIAL Timed 08/26/2024 12:32 AM BUSINESS AND SERVICES INSTRUCTOR DIFFERENTIAL AUTO Timed 08/25/2024 11:33 PM BUSINESS AND SERVICES INSTRUCTOR CBC WITH AUTO DIFFERENTIAL Timed 08/25/2024 11:33 PM BUSINESS AND SERVICES INSTRUCTOR ED CRITICAL CARE Routine 08/25/2024 9:45 PM BUSINESS AND SERVICES INSTRUCTOR POCT GLUCOSE DEVICE Routine 08/25/2024 9 :13 PM BUSINESS AND SERVICES INSTRUCTOR POCT GLUCOSE DEVICE Routine 08/25/2024 7 :49 PM BUSINESS AND SERVICES INSTRUCTOR POCT GLUCOSE DEVICE Routine 08/25/2024 5 :55 PM BUSINESS AND SERVICES INSTRUCTOR XR HAND RIGHT 3 OR MORE VIEWS IP Routine 08/25/2024 2:50 PM BUSINESS AND SERVICES INSTRUCTOR XR WRIST RIGHT 3 OR MORE VIEWS IP Routine 08/25/2024 2:50 PM BUSINESS AND SERVICES INSTRUCTOR EGFR Routine 08/25/2024 1:30 PM BUSINESS AND SERVICES INSTRUCTOR DIFFERENTIAL AUTO Timed 08/25/2024 1:3 0 PM BUSINESS AND SERVICES INSTRUCTOR CBC WITH AUTO DIFFERENTIAL Timed 08/25/2024 1:30 PM BUSINESS AND SERVICES INSTRUCTOR PHOSPHORUS Routine 08/25/2024 1:30 PM BUSINESS AND SERVICES INSTRUCTOR MAGNESIUM Routine 08/25/2024 1:30 PM BUSINESS AND SERVICES INSTRUCTOR BASIC METABOLIC PANEL Routine 08/25/2024 1:30 PM BUSINESS AND SERVICES INSTRUCTOR POCT GLUCOSE DEVICE Routine 08/25/2024 11:42 AM BUSINESS AND SERVICES INSTRUCTOR POCT GLUCOSE DEVICE Routine 08/25/2024 8 :10 AM BUSINESS AND SERVICES INSTRUCTOR DIFFERENTIAL AUTO Routine 08/24/2024 11:36 PM BUSINESS AND SERVICES INSTRUCTOR CBC WITH AUTO DIFFERENTIAL Routine 08/24/2024 11:36 PM BUSINESS AND SERVICES INSTRUCTOR POCT GLUCOSE DEVICE Routine 08/24/2024 11:30 PM BUSINESS AND SERVICES INSTRUCTOR POC BLOOD GAS AND CHEMISTRIES, ARTERIAL Routine 08/24/2024 10:52 PM BUSINESS AND SERVICES INSTRUCTOR POC BLOOD GAS AND CHEMISTRIES, ARTERIAL Routine 08/24/2024 10:07 PM BUSINESS AND SERVICES INSTRUCTOR TRANSFUSE RED BLOOD CELLS Timed 08/24/2024 9:44 PM BUSINESS AND SERVICES INSTRUCTOR ANESTHESIA ARTERIAL LINE PLACEMENT Routine 08/24/2024 9:43 PM BUSINESS AND SERVICES INSTRUCTOR PERIPHERAL LINE Routine 08/24/2024 9:43 PM BUSINESS AND SERVICES INSTRUCTOR TRANSFUSE PLASMA Routine 08/24/2024 9:39 PM BUSINESS AND SERVICES INSTRUCTOR TRANSFUSE PLASMA Timed 08/24/2024 9:24 PM BUSINESS AND SERVICES INSTRUCTOR PREPARE PLASMA STAT 08/24/2024 9:19 PM BUSINESS AND SERVICES INSTRUCTOR PREPARE RBC STAT 08/24/2024 9:19 PM BUSINESS AND SERVICES INSTRUCTOR POC BLOOD GAS AND CHEMISTRIES, ARTERIAL Routine 08/24/2024 9:16 PM BUSINESS AND SERVICES INSTRUCTOR POCT PARTIAL THROMBOPLASTIN TIME (PTT) Routine 08/24/2024 9:15 PM BUSINESS AND SERVICES INSTRUCTOR POCT PLATELET COUNT AND HEMATOCRIT Routine 08/24/2024 9:15 PM BUSINESS AND SERVICES INSTRUCTOR POCT PROTHROMBIN TIME Routine 08/24/2024 9:14 PM BUSINESS AND SERVICES INSTRUCTOR PREPARE PLASMA Timed 08/24/2024 9:06 PM BUSINESS AND SERVICES INSTRUCTOR TRANSFUSE RED BLOOD CELLS Timed 08/24/2024 8:57 PM BUSINESS AND SERVICES INSTRUCTOR PREPARE RBC STAT 08/24/2024 8:31 PM BUSINESS AND SERVICES INSTRUCTOR FL FLUOROSCOPY < 1 HOUR IP Routine 08/24/2024 8:00 PM BUSINESS AND SERVICES INSTRUCTOR POCT GLUCOSE DEVICE Routine 08/24/2024 6 :36 PM BUSINESS AND SERVICES INSTRUCTOR DC AN PROCEDURE PLACEHOLDER Routine 08/24/2024 6:22 PM BUSINESS AND SERVICES INSTRUCTOR DC AN ELECTIVE ENDOTRACHEAL AIRWAY Routine 08/24/2024 6:22 PM BUSINESS AND SERVICES INSTRUCTOR REMOVAL/EXCHANGE INTERMEDULLARY NAILING - FEMUR 08/24/2024 5:38 PM BUSINESS AND SERVICES INSTRUCTOR Closed fracture of shaft of right femur, unspecified fracture morphology, initial encounter (HCC) DC AN PROCEDURE PLACEHOLDER Routine 08/24/2024 2:53 PM BUSINESS AND SERVICES INSTRUCTOR B CHECK SAMPLE STAT 08/24/2024 2:14 PM BUSINESS AND SERVICES INSTRUCTOR POCT GLUCOSE DEVICE Routine 08/24/2024 2 :10 PM BUSINESS AND SERVICES INSTRUCTOR POCT GLUCOSE DEVICE Routine 08/24/2024 11:51 AM BUSINESS AND SERVICES INSTRUCTOR EGFR STAT 08/24/2024 9:39 AM BUSINESS AND SERVICES INSTRUCTOR DIFFERENTIAL AUTO STAT 08/24/2024 9:3 9 AM BUSINESS AND SERVICES INSTRUCTOR COMPREHENSIVE METABOLIC PANEL STAT 08/24/2024 9:39 AM BUSINESS AND SERVICES INSTRUCTOR CBC WITH AUTO DIFFERENTIAL STAT 08/24/2024 9:39 AM BUSINESS AND SERVICES INSTRUCTOR PHOSPHORUS STAT 08/24/2024 9:39 AM BUSINESS AND SERVICES INSTRUCTOR MAGNESIUM STAT 08/24/2024 9:39 AM BUSINESS AND SERVICES INSTRUCTOR POCT GLUCOSE DEVICE Routine 08/24/2024 8 :16 AM BUSINESS AND SERVICES INSTRUCTOR POTASSIUM, WHOLE BLOOD Timed 08/24/2024 3:38 AM BUSINESS AND SERVICES INSTRUCTOR POCT GLUCOSE DEVICE Routine 08/23/2024 10:27 PM BUSINESS AND SERVICES INSTRUCTOR POCT GLUCOSE DEVICE Routine 08/23/2024 9 :05 PM BUSINESS AND SERVICES INSTRUCTOR CT PELVIS WO CONTRAST ED Urgent/IP Urgent 08/23/2024 7:10 PM BUSINESS AND SERVICES INSTRUCTOR CT CERVICAL SPINE WO CONTRAST ED 08/23/2024 5:30 PM BUSINESS AND SERVICES INSTRUCTOR LIPID PANEL STAT 08/23/2024 4:49 PM BUSINESS AND SERVICES INSTRUCTOR EGFR STAT 08/23/2024 4:49 PM BUSINESS AND SERVICES INSTRUCTOR COMPREHENSIVE METABOLIC PANEL STAT 08/23/2024 4:49 PM BUSINESS AND SERVICES INSTRUCTOR DC INJECTION AA&/STRD OTHER PERIPHERAL NERVE/BRANCH Routine 08/23/2024 4:15 PM BUSINESS AND SERVICES INSTRUCTOR XR HIP RIGHT 2 OR 3 VIEWS ED Urgent/IP Urgent 08/23/2024 3:51 PM BUSINESS AND SERVICES INSTRUCTOR XR FEMUR RIGHT 2 OR MORE VIEWS ED Urgent/IP Urgent 08/23/2024 3:35 PM BUSINESS AND SERVICES INSTRUCTOR XR PELVIS 1 OR 2 VIEWS ED 08/23/2024 3:34 PM BUSINESS AND SERVICES INSTRUCTOR XR CHEST 1 VIEW ED 08/23/2024 3:34 PM BUSINESS AND SERVICES INSTRUCTOR DIFFERENTIAL AUTO STAT 08/23/2024 3:0 9 PM BUSINESS AND SERVICES INSTRUCTOR TYPE AND SCREEN STAT 08/23/2024 3:09 PM BUSINESS AND SERVICES INSTRUCTOR CBC WITH AUTO DIFFERENTIAL STAT 08/23/2024 3:09 PM BUSINESS AND SERVICES INSTRUCTOR PROTIME-INR STAT 08/23/2024 3:09 PM BUSINESS AND SERVICES INSTRUCTOR APTT STAT 08/23/2024 3:09 PM BUSINESS AND SERVICES INSTRUCTOR NEURO CT OUTSIDE REFERENCE Routine 08/23/2024 2:36 PM BUSINESS AND SERVICES INSTRUCTOR XR TRANSFER OF OUTSIDE FILMS Routine 08/23/2024 2:33 PM BUSINESS AND SERVICES INSTRUCTOR XR TRANSFER OF OUTSIDE FILMS Routine 08/23/2024 2:30 PM BUSINESS AND SERVICES INSTRUCTOR POCT KETONE, BLOOD Routine 08/23/2024 2: 05 PM BUSINESS AND SERVICES INSTRUCTOR POCT GLUCOSE DEVICE Routine 08/23/2024 2 :04 PM BUSINESS AND SERVICES INSTRUCTOR DEXA AXIAL SKELETON BONE DENSITY 1 OR MORE SITES Schedule Routine, Read Routine (OP Routine) 06/02/2021 3:15 PM CDT Postmenopause HEMOGLOBIN A1C Routine 05/22/2021 9:55 AM CDT Uncontrolled type 2 diabetes mellitus with hyperglycemia (CMS/HCC) (HCC) DIABETIC EYE EXAM Routine 12/10/2020 from Last 3 Months or Most Recently Relevant to Health Maintenance Results * POCT glucose (08/27/2024 6:33 PM BUSINESS AND SERVICES INSTRUCTOR) Glucose, POC 139 70 - 199 mg/dL Blood 08/27/2024 6:33 PM BUSINESS AND SERVICES INSTRUCTOR 08/27/2024 6:33 PM BUSINESS AND SERVICES INSTRUCTOR Tashi Parisi MD LAB POCT ORDERABLES - DEV ICE Final Result Performing Organization Address [facility] Co de Phone Number [facility] [place] [address] * (ABNORMAL) POCT glucose (08/27/2024 11:58 AM BUSINESS AND SERVICES INSTRUCTOR) Glucose, POC 203(H) 70 - 199 mg/dL Comment:Glu2: RN/MD Notified Glucose comment 1 Glu2: RN/MD Notified [facility] Blood 08/27/2024 11:5 8 AM BUSINESS AND SERVICES INSTRUCTOR 08/27/2024 11:58 AM BUSINESS AND SERVICES INSTRUCTOR Tashi Parisi MD LAB POCT ORDERABLES - DEV ICE Final Result Performing Organization Address [facility] Co de Phone Number [facility] [place] [address] * POCT glucose (08/27/2024 8:00 AM BUSINESS AND SERVICES INSTRUCTOR) Glucose, POC 146 70 - 199 mg/dL Blood 08/27/2024 8:00 AM BUSINESS AND SERVICES INSTRUCTOR 08/27/2024 8:00 AM BUSINESS AND SERVICES INSTRUCTOR Tashi Parisi MD LAB POCT ORDERABLES - DEV ICE Final Result Performing Organization Address [facility] de Phone Number [facility] [place] [address] * (ABNORMAL) CBC without differential (08/27/2024 3:20 AM BUSINESS AND SERVICES INSTRUCTOR) WBC 10.4(H) 3.8 - 9.9 K/cumm Hgb 8.5(L) 11.9 - 15.5 g/dL [facility] Hct 25.9(L) 35.6 - 45.5 % [facility] Plt 171 150 - 400 K/cumm [facility] MPV 9.9 9.1 - 12.3 fL [facility] RBC 2.98(L) 3.90 - 5.20 M/cumm [facility] MCV 86.9 81.3 - 96.4 fL [facility] MCH 28.5 27.1 - 33.3 pg [facility] MCHC 32.8 32.3 - 35.7 g/dL [facility] RDW CV 15.7(H) 11.1 - 14.9 % [facility] RDW SD 49.5(H) 35.7 - 48.1 fL [facility] NRBC abs 0.00 0.00 - 0.01 K/cumm [facility] Blood 08/27/2024 3:20 AM BUSINESS AND SERVICES INSTRUCTOR 08/27/2024 5:04 AM BUSINESS AND SERVICES INSTRUCTOR Tashi Parisi MD LAB BLOOD ORDERABLES Anna l Result Performing Organization Address [facility] Co de Phone Number [facility] Department [place] [address] * (ABNORMAL) CBC without differential (08/27/2024 2:54 AM BUSINESS AND SERVICES INSTRUCTOR) WBC 10.1(H) 3.8 - 9.9 K/cumm Hgb 8.5(L) 11.9 - 15.5 g/dL [facility] Hct 25.7(L) 35.6 - 45.5 % [facility] Plt 173 150 - 400 K/cumm [facility] MPV 9.8 9.1 - 12.3 fL [facility] RBC 2.92(L) 3.90 - 5.20 M/cumm [facility] MCV 88.0 81.3 - 96.4 fL [facility] MCH 29.1 27.1 - 33.3 pg [facility] MCHC 33.1 32.3 - 35.7 g/dL [facility] RDW CV 15.4(H) 11.1 - 14.9 % [facility] RDW SD 49.6(H) 35.7 - 48.1 fL [facility] NRBC abs 0.00 0.00 - 0.01 K/cumm [facility] Blood 08/27/2024 2:54 AM BUSINESS AND SERVICES INSTRUCTOR 08/27/2024 3:32 AM BUSINESS AND SERVICES INSTRUCTOR Narrative [facility] - 08/27/2024 3:40 AM BUSINESS AND SERVICES INSTRUCTOR 1 hour after transfusion of red blood cells is complete Tashi Parisi MD LAB BLOOD ORDERABLES Anna l Result [facility] [place] [address] * Transfuse RBC (08/27/2024 2:20 AM BUSINESS AND SERVICES INSTRUCTOR) Blood Tashi Parisi MD BLOOD TRANSFUSION ORDERAB LES Final Result Performing Organization Address [facility]/State/ZIP Co de Phone Number [facility] Department [place] [address] * Prepare RBC: 1 Units (08/26/2024 10:56 PM BUSINESS AND SERVICES INSTRUCTOR) Pathologist [facility] Product code [id number] Unit Number [id number] [facility] Product Blood Type OPOS [facility] Dispense Status PRESUMED TRANSFUSED [facility] Blood 08/26/2024 10:5 6 PM BUSINESS AND SERVICES INSTRUCTOR 08/26/2024 10:57 PM BUSINESS AND SERVICES INSTRUCTOR Narrative [facility] - 08/27/2024 4:01 PM BUSINESS AND SERVICES INSTRUCTOR Are special requirements needed? (All products are leukoreduced and CMV- safe)- >No Date required:-[id number] [facility] # of [id number] Reasons:-Cardiovascular disease, Hgb <8 g/dL} us Tashi Parisi MD BLOOD BANK PRODUCT ORDERA BLES Final Result Performing Organization Address [facility] Co de Phone Number [facility] [place] [address] * (ABNORMAL) eGFR (08/26/2024 9:01 PM BUSINESS AND SERVICES INSTRUCTOR) eGFR 36(L) >=60 mL/min/1. 73 m2 Comment: [...] last reviewed 2021. Blood 08/26/2024 9:01 PM BUSINESS AND SERVICES INSTRUCTOR 08/26/2024 9:42 PM BUSINESS AND SERVICES INSTRUCTOR us Radha Kirk NP LAB BLOOD ORDERABLES Final Result Performing Organization Address [facility] Co de Phone Number [facility] Department [place] [address] * (ABNORMAL) Differential, auto (08/26/2024 9:01 PM BUSINESS AND SERVICES INSTRUCTOR) Neutrophil abs 7.3(H) 1.5 - 6.5 K/cumm Imm gran abs 0.1 0.0 - 0.1 K/cumm [facility] Lymphocyte abs 1.6 0.8 - 3.3 K/cumm [facility] Monocyte abs 1.0(H) 0.2 - 0.8 K/cumm [facility] Eosinophil abs 0.3 0.0 - 0.5 K/cumm [facility] Basophil abs 0.1 0.0 - 0.1 K/cumm [facility] Neutrophil pct 71.0 % [facility] Comment: Interpretive Data Percent cell count reference ranges are not reported, since discordance with absolute values may lead to misinterpretation of CBC data. Current Interpretive Data was last revised on 2017. Imm gran pct 0.8 % [facility] Comment: Interpretive Data Percent cell count reference ranges are not reported, since discordance with absolute values may lead to misinterpretation of CBC data. Current Interpretive Data was last revised on 2017. Lymphocyte pct 15.4 % [facility] Comment: Interpretive Data Percent cell count reference ranges are not reported, since discordance with absolute values may lead to misinterpretation of CBC data. Current Interpretive Data was last revised on 2017. Monocyte pct 9.5 % [facility] Comment: Interpretive Data Percent cell count reference ranges are not reported, since discordance with absolute values may lead to misinterpretation of CBC data. Current Interpretive Data was last revised on 2017. Eosinophil pct 2.8 % [facility] Comment: Interpretive Data Percent cell count reference ranges are not reported, since discordance with absolute values may lead to misinterpretation of CBC data. Current Interpretive Data was last revised on 2017. Basophil pct 0.5 % [facility] Comment: Interpretive Data Percent cell count reference ranges are not reported, since discordance with absolute values may lead to misinterpretation of CBC data. Current Interpretive Data was last revised on 2017. Blood 08/26/2024 9:01 PM BUSINESS AND SERVICES INSTRUCTOR 08/26/2024 9:42 PM BUSINESS AND SERVICES INSTRUCTOR us Radha Kirk REHABILITATION SERVICES COUNSELOR LAB BLOOD ORDERABLES Final Result Performing Organization Address [facility] Co de Phone Number [facility] [place] [address] * (ABNORMAL) CBC with auto differential (08/26/2024 9:01 PM BUSINESS AND SERVICES INSTRUCTOR) [facility] WBC 10.3(H) 3.8 - 9.9 K/cumm Hgb 7.7(L) 11.9 - 15.5 g/dL [facility] Hct 23.6(L) 35.6 - 45.5 % [facility] Plt 185 150 - 400 K/cumm [facility] MPV 9.8 9.1 - 12.3 fL [facility] RBC 2.61(L) 3.90 - 5.20 M/cumm [facility] MCV 90.4 81.3 - 96.4 fL [facility] MCH 29.5 27.1 - 33.3 pg [facility] MCHC 32.6 32.3 - 35.7 g/dL [facility] RDW CV 15.1(H) 11.1 - 14.9 % [facility] RDW SD 49.7(H) 35.7 - 48.1 fL [facility] NRBC abs 0.00 0.00 - 0.01 K/cumm [facility] Blood 08/26/2024 9:01 PM BUSINESS AND SERVICES INSTRUCTOR 08/26/2024 9:42 PM BUSINESS AND SERVICES INSTRUCTOR Radha Kirk REHABILITATION SERVICES COUNSELOR LAB BLOOD ORDERABLES Final Result [facility] Department [place] [address] * (ABNORMAL) Phosphorus (08/26/2024 9:01 PM BUSINESS AND SERVICES INSTRUCTOR) Pathologist [facility] Phosphorus, pl 1.6(L) 2.3 - 4.5 mg/dL Blood 08/26/2024 9:01 PM BUSINESS AND SERVICES INSTRUCTOR 08/26/2024 9:42 PM BUSINESS AND SERVICES INSTRUCTOR Radha Kirk REHABILITATION SERVICES COUNSELOR LAB BLOOD ORDERABLES Final Result Performing Organization Address City/[facility]/ZIP Co de Phone Number [facility] [place] [address] * Magnesium (08/26/2024 9:01 PM BUSINESS AND SERVICES INSTRUCTOR) [facility] Magnesium 1.7 1.4 - 2.5 mg/dL Blood 08/26/2024 9:01 PM BUSINESS AND SERVICES INSTRUCTOR 08/26/2024 9:42 PM BUSINESS AND SERVICES INSTRUCTOR Radha Mike Kirk LAB BLOOD ORDERABLES Final Result Performing Organization Address [facility] de Phone Number [facility] Department [place] [address] * (ABNORMAL) Basic metabolic panel (08/26/2024 9:01 PM BUSINESS AND SERVICES INSTRUCTOR) [facility] Sodium 140 135 - 145 mmol/L Potassium, pl 3.7 3.3 - 4.9 mmol/L [facility] Chloride 111(H) 97 - 110 mmol/L [facility] CO2 21(L) 22 - 32 mmol/L [facility] Anion gap 8 2 - 15 mmol/L [facility] BUN 40(H) 6 - 25 mg/dL [facility] Creatinine 1.43(H) 0.60 - 1.10 mg/dL [facility] Glucose 150 70 - 199 mg/dL [facility] Comment: Interpretive Data Fasting glucose >/= [...] 2022. Calcium 8.4(L) 8.5 - 10.3 mg/dL [facility] Blood 08/26/2024 9:01 PM BUSINESS AND SERVICES INSTRUCTOR 08/26/2024 9:42 PM BUSINESS AND SERVICES INSTRUCTOR us Radha Kirk NP LAB BLOOD ORDERABLES Final Result Performing Organization Address [facility] Co de Phone Number [facility] [place] [address] * POCT glucose (08/26/2024 7:59 PM BUSINESS AND SERVICES INSTRUCTOR) Glucose, POC 168 70 - 199 mg/dL Blood 08/26/2024 7:59 PM BUSINESS AND SERVICES INSTRUCTOR 08/26/2024 7:59 PM BUSINESS AND SERVICES INSTRUCTOR us Tashi Parisi MD LAB POCT ORDERABLES - DEV ICE Final Result Performing Organization Address [facility] Co de Phone Number [facility] [place] [address] * (ABNORMAL) POCT glucose (08/26/2024 4:41 PM BUSINESS AND SERVICES INSTRUCTOR) Glucose, POC 227(H) 70 - 199 mg/dL Comment:Glu2: RN/MD Notified Glucose comment 1 Glu2: RN/MD Notified [facility] Blood 08/26/2024 4:41 PM BUSINESS AND SERVICES INSTRUCTOR 08/26/2024 4:41 PM BUSINESS AND SERVICES INSTRUCTOR us Tashi Parisi MD LAB POCT ORDERABLES - DEV ICE Final Result Performing Organization Address [facility] Co de Phone Number [facility] [place] [address] * XR Hand Right 1 View (08/26/2024 2:21 PM BUSINESS AND SERVICES INSTRUCTOR) Anatomical Region Laterality Modality Hand Right Computed Radiogr aphy 08/26/2024 3:03 PM BUSINESS AND SERVICES INSTRUCTOR Impressions 08/26/2024 3:03 PM BUSINESS AND SERVICES INSTRUCTOR 1. Mild bilateral scapholunate interval widening. This could be further evaluated with clenched fist views of both hands, and dedicated lateral radiographs of both wrists with attention to technique to better evaluate alignment. 2. Bilateral wrists chondrocalcinosis. 3. 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 Electronically signed by: Luis M Rogers D.O. Narrative 08/26/2024 3:03 PM BUSINESS AND SERVICES INSTRUCTOR EXAMINATION: XR HAND LEFT 3 OR MORE VIEWS, XR HAND RIGHT 1 VIEW HISTORY: pain FINDINGS: Comparison is made to 08/25/2024 radiographs of the right hand. Single view evaluation of the right hand with redemonstration of severe base of thumb and vgjx-xs-coyazogc triscaphe osteoarthritis as well as polyarticular interphalangeal [...] redemonstration of severe base of thumb and eaxo-sv-ivdkjioe triscaphe osteoarthritis as well as polyarticular interphalangeal [...] 3 or More Views (08/26/2024 2:21 PM BUSINESS AND SERVICES INSTRUCTOR) Anatomical Region Laterality Modality Upper Extremities, Hand Left Computed Radiography 08/26/2024 3:03 PM BUSINESS AND SERVICES INSTRUCTOR Impressions 08/26/2024 3:03 PM BUSINESS AND SERVICES INSTRUCTOR 1. Mild bilateral scapholunate interval widening. This could be further evaluated with clenched fist views of both hands, and dedicated lateral radiographs of both wrists with attention to technique to better evaluate alignment. 2. Bilateral wrists chondrocalcinosis. 3. 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 Electronically signed by: Luis M Rogers D.O. Narrative 08/26/2024 3:03 PM BUSINESS AND SERVICES INSTRUCTOR EXAMINATION: XR HAND LEFT 3 OR MORE VIEWS, XR HAND RIGHT 1 VIEW HISTORY: pain FINDINGS: Comparison is made to 08/25/2024 radiographs of the right hand. Single view evaluation of the right hand with redemonstration of severe base of thumb and wohw-no-rmgijuqh triscaphe osteoarthritis as well as polyarticular interphalangeal [...] redemonstration of severe base of thumb and aqky-zs-ylhsttma triscaphe osteoarthritis as well as polyarticular interphalangeal [...] by: Luis M Rogers D.O. Radha Kirk REHABILITATION SERVICES COUNSELOR IMG XR PROCEDURES Fi nal Result * (ABNORMAL) POCT glucose (08/26/2024 12:22 PM BUSINESS AND SERVICES INSTRUCTOR) Glucose, POC 227(H) 70 - 199 mg/dL Comment:Glu2: RN/ Notified Glucose comment 1 Glu2: RN/MD Notified [facility] Blood 08/26/2024 12:2 2 PM BUSINESS AND SERVICES INSTRUCTOR 08/26/2024 12:22 PM BUSINESS AND SERVICES INSTRUCTOR Tashi Parisi MD LAB POCT ORDERABLES - DEV ICE Final Result Performing Organization Address [facility] Co de Phone Number [facility] [place] [address] * (ABNORMAL) eGFR (08/26/2024 10:26 AM BUSINESS AND SERVICES INSTRUCTOR) eGFR 43(L) >=60 mL/min/1. 73 m2 Comment: [...] reviewed 2021. Blood 08/26/2024 10:2 6 AM BUSINESS AND SERVICES INSTRUCTOR 08/26/2024 11:05 AM BUSINESS AND SERVICES INSTRUCTOR Radha Kirk NP LAB BLOOD ORDERABLES Final Result Performing Organization Address [facility] Co de Phone Number [facility] Department [place] [address] * Type and screen (08/26/2024 10:26 AM BUSINESS AND SERVICES INSTRUCTOR) Markos, indirect Negative ABO Rh O Positive [facility] Blood 08/26/2024 10:2 6 AM BUSINESS AND SERVICES INSTRUCTOR 08/26/2024 10:51 AM BUSINESS AND SERVICES INSTRUCTOR Narrative [facility] - 08/26/2024 12:15 PM BUSINESS AND SERVICES INSTRUCTOR Has the patient had Daratumumab or Isatuximab in the past 6 months?->Unknown Radha Kirk REHABILITATION SERVICES COUNSELOR LAB BLOOD BANK TEST ORDERABLES Final Result [facility] [place] [address] * (ABNORMAL) Basic metabolic panel (08/26/2024 10:26 AM BUSINESS AND SERVICES INSTRUCTOR) [facility] Sodium 141 135 - 145 mmol/L Potassium, pl 3.4 3.3 - 4.9 mmol/L [facility] Chloride 109 97 - 110 mmol/L [facility] CO2 23 22 - 32 mmol/L [facility] Anion gap 9 2 - 15 mmol/L [facility] BUN 37(H) 6 - 25 mg/dL [facility] Creatinine 1.23(H) 0.60 - 1.10 mg/dL [facility] Glucose 235(H) 70 - 199 mg/dL [facility] Comment: Interpretive Data Fasting glucose >/= [...] 2022. Calcium 8.9 8.5 - 10.3 mg/dL [facility] Blood 08/26/2024 10:2 6 AM BUSINESS AND SERVICES INSTRUCTOR 08/26/2024 10:48 AM BUSINESS AND SERVICES INSTRUCTOR Radha Kirk REHABILITATION SERVICES COUNSELOR LAB BLOOD ORDERABLES Final Result Performing Organization Address City/[facility]/ZIP Co de Phone Number [facility] [place] [address] * POCT glucose (08/26/2024 8:12 AM BUSINESS AND SERVICES INSTRUCTOR) Glucose, POC 163 70 - 199 mg/dL Blood 08/26/2024 8:12 AM BUSINESS AND SERVICES INSTRUCTOR 08/26/2024 8:12 AM BUSINESS AND SERVICES INSTRUCTOR Tashi Parisi MD LAB POCT ORDERABLES - DEV ICE Final Result [facility] Department [place] [address] * (ABNORMAL) Differential, auto (08/26/2024 5:17 AM BUSINESS AND SERVICES INSTRUCTOR) Pathologist [facility] Neutrophil abs 7.3(H) 1.5 - 6.5 K/cumm Imm gran abs 0.0 0.0 - 0.1 K/cumm [facility] Lymphocyte abs 1.6 0.8 - 3.3 K/cumm [facility] Monocyte abs 1.1(H) 0.2 - 0.8 K/cumm [facility] Eosinophil abs 0.2 0.0 - 0.5 K/cumm [facility] Basophil abs 0.1 0.0 - 0.1 K/cumm [facility] Neutrophil pct 70.9 % [facility] Comment: Interpretive Data Percent cell count reference ranges are not reported, since discordance with absolute values may lead to misinterpretation of CBC data. Current Interpretive Data was last revised on 2017. Imm gran pct 0.4 % [facility] Comment: Interpretive Data Percent cell count reference ranges are not reported, since discordance with absolute values may lead to misinterpretation of CBC data. Current Interpretive Data was last revised on 2017. Lymphocyte pct 15.2 % [facility] Comment: Interpretive Data Percent cell count reference ranges are not reported, since discordance with absolute values may lead to misinterpretation of CBC data. Current Interpretive Data was last revised on 2017. Monocyte pct 11.0 % [facility] Comment: Interpretive Data Percent cell count reference ranges are not reported, since discordance with absolute values may lead to misinterpretation of CBC data. Current Interpretive Data was last revised on 2017. Eosinophil pct 1.9 % [facility] Comment: Interpretive Data Percent cell count reference ranges are not reported, since discordance with absolute values may lead to misinterpretation of CBC data. Current Interpretive Data was last revised on 2017. Basophil pct 0.6 % [facility] Comment: Interpretive Data Percent cell count reference ranges are not reported, since discordance with absolute values may lead to misinterpretation of CBC data. Current Interpretive Data was last revised on 2017. Blood 08/26/2024 5:1 7 AM BUSINESS AND SERVICES INSTRUCTOR 08/26/2024 5:24 AM BUSINESS AND SERVICES INSTRUCTOR us Radha Kirk NP LAB BLOOD ORDERABLES Final Result [facility] Department [place] [address] * (ABNORMAL) CBC with auto differential (08/26/2024 5:17 AM BUSINESS AND SERVICES INSTRUCTOR) WBC 10.2(H) 3.8 - 9.9 K/cumm Hgb 8.5(L) 11.9 - 15.5 g/dL [facility] Hct 25.5(L) 35.6 - 45.5 % [facility] Plt 166 150 - 400 K/cumm [facility] MPV 9.4 9.1 - 12.3 fL [facility] RBC 2.92(L) 3.90 - 5.20 M/cumm [facility] MCV 87.3 81.3 - 96.4 fL [facility] MCH 29.1 27.1 - 33.3 pg [facility] MCHC 33.3 32.3 - 35.7 g/dL [facility] RDW CV 15.0(H) 11.1 - 14.9 % [facility] RDW SD 47.7 35.7 - 48.1 fL [facility] NRBC abs 0.00 0.00 - 0.01 K/cumm [facility] Blood 08/26/2024 5:17 AM BUSINESS AND SERVICES INSTRUCTOR 08/26/2024 5:24 AM BUSINESS AND SERVICES INSTRUCTOR Radha Kirk REHABILITATION SERVICES COUNSELOR LAB BLOOD ORDERABLES Final Result Performing Organization Address City/[facility] Co de Phone Number [facility] [place] [address] * (ABNORMAL) eGFR (08/26/2024 12:32 AM BUSINESS AND SERVICES INSTRUCTOR) Pathologist [facility] eGFR 34(L) >=60 mL/min/1. 73 m2 Comment: [...] reviewed 2021. Blood 08/26/2024 12:3 2 AM BUSINESS AND SERVICES INSTRUCTOR 08/26/2024 12:47 AM BUSINESS AND SERVICES INSTRUCTOR Radha Kirk REHABILITATION SERVICES COUNSELOR LAB BLOOD ORDERABLES Final Result Performing Organization Address City/[facility]/ZIP Co de Phone Number [facility] Department [place] [address] * (ABNORMAL) Differential, auto (08/26/2024 12:32 AM BUSINESS AND SERVICES INSTRUCTOR) Pathologist [facility] Neutrophil abs 7.7(H) 1.5 - 6.5 K/cumm Imm gran abs 0.0 0.0 - 0.1 K/cumm [facility] Lymphocyte abs 1.7 0.8 - 3.3 K/cumm [facility] Monocyte abs 1.4(H) 0.2 - 0.8 K/cumm [facility] Eosinophil abs 0.1 0.0 - 0.5 K/cumm [facility] Basophil abs 0.0 0.0 - 0.1 K/cumm [facility] Neutrophil pct 69.5 % [facility] Comment: Interpretive Data Percent cell count reference ranges are not reported, since discordance with absolute values may lead to misinterpretation of CBC data. Current Interpretive Data was last revised on 2017. Imm gran pct 0.4 % [facility] Comment: Interpretive Data Percent cell count reference ranges are not reported, since discordance with absolute values may lead to misinterpretation of CBC data. Current Interpretive Data was last revised on 2017. Lymphocyte pct 15.8 % [facility] Comment: Interpretive Data Percent cell count reference ranges are not reported, since discordance with absolute values may lead to misinterpretation of CBC data. Current Interpretive Data was last revised on 2017. Monocyte pct 12.7 % [facility] Comment: Interpretive Data Percent cell count reference ranges are not reported, since discordance with absolute values may lead to misinterpretation of CBC data. Current Interpretive Data was last revised on 2017. Eosinophil pct 1.2 % [facility] Comment: Interpretive Data Percent cell count reference ranges are not reported, since discordance with absolute values may lead to misinterpretation of CBC data. Current Interpretive Data was last revised on 2017. Basophil pct 0.4 % [facility] Comment: Interpretive Data Percent cell count reference ranges are not reported, since discordance with absolute values may lead to misinterpretation of CBC data. Current Interpretive Data was last revised on 2017. Blood 08/26/2024 12:3 2 AM BUSINESS AND SERVICES INSTRUCTOR 08/26/2024 12:47 AM BUSINESS AND SERVICES INSTRUCTOR us Radha Kirk NP LAB BLOOD ORDERABLES Final Result [facility] [place] [address] * (ABNORMAL) CBC with auto differential (08/26/2024 12:32 AM BUSINESS AND SERVICES INSTRUCTOR) [facility] WBC 11.0(H) 3.8 - 9.9 K/cumm Hgb 8.3(L) 11.9 - 15.5 g/dL [facility] Hct 24.8(L) 35.6 - 45.5 % [facility] Plt 157 150 - 400 K/cumm [facility] MPV 10.1 9.1 - 12.3 fL [facility] RBC 2.80(L) 3.90 - 5.20 M/cumm [facility] MCV 88.6 81.3 - 96.4 fL [facility] MCH 29.6 27.1 - 33.3 pg [facility] MCHC 33.5 32.3 - 35.7 g/dL [facility] RDW CV 14.9 11.1 - 14.9 % [facility] RDW SD 48.0 35.7 - 48.1 fL [facility] NRBC abs 0.00 0.00 - 0.01 K/cumm [facility] Blood 08/26/2024 12:3 2 AM BUSINESS AND SERVICES INSTRUCTOR 08/26/2024 12:47 AM BUSINESS AND SERVICES INSTRUCTOR Radha Kirk REHABILITATION SERVICES COUNSELOR LAB BLOOD ORDERABLES Final Result Performing Organization Address [facility] Co de Phone Number [facility] [place] [address] * (ABNORMAL) Phosphorus (08/26/2024 12:32 AM BUSINESS AND SERVICES INSTRUCTOR) [facility] Phosphorus, pl 2.2(L) 2.3 - 4.5 mg/dL Blood 08/26/2024 12:3 2 AM BUSINESS AND SERVICES INSTRUCTOR 08/26/2024 12:47 AM BUSINESS AND SERVICES INSTRUCTOR Radha Kirk REHABILITATION SERVICES COUNSELOR LAB BLOOD ORDERABLES Final Result Performing Organization Address City/[facility]/ZIP Co de Phone Number [facility] [place] [address] * Magnesium (08/26/2024 12:32 AM BUSINESS AND SERVICES INSTRUCTOR) Pathologist [facility] Magnesium 1.8 1.4 - 2.5 mg/dL Blood 08/26/2024 12:3 2 AM BUSINESS AND SERVICES INSTRUCTOR 08/26/2024 12:47 AM BUSINESS AND SERVICES INSTRUCTOR Radha Kirk REHABILITATION SERVICES COUNSELOR LAB BLOOD ORDERABLES Final Result [facility] Department [place] [address] * (ABNORMAL) Basic metabolic panel (08/26/2024 12:32 AM BUSINESS AND SERVICES INSTRUCTOR) [facility] Sodium 136 135 - 145 mmol/L Potassium, pl 3.5 3.3 - 4.9 mmol/L [facility] Chloride 110 97 - 110 mmol/L [facility] CO2 19(L) 22 - 32 mmol/L [facility] Anion gap 7 2 - 15 mmol/L [facility] BUN 45(H) 6 - 25 mg/dL [facility] Creatinine 1.50(H) 0.60 - 1.10 mg/dL [facility] Glucose 139 70 - 199 mg/dL [facility] Comment: Interpretive Data Fasting glucose >/= [...] 2022. Calcium 8.6 8.5 - 10.3 mg/dL [facility] Blood 08/26/2024 12:3 2 AM BUSINESS AND SERVICES INSTRUCTOR 08/26/2024 12:47 AM BUSINESS AND SERVICES INSTRUCTOR Radha Kirk REHABILITATION SERVICES COUNSELOR LAB BLOOD ORDERABLES Final Result [facility] Department [place] [address] * (ABNORMAL) Differential, auto (08/25/2024 11:33 PM BUSINESS AND SERVICES INSTRUCTOR) Neutrophil abs 7.5(H) 1.5 - 6.5 K/cumm Imm gran abs 0.1 0.0 - 0.1 K/cumm [facility] Lymphocyte abs 1.7 0.8 - 3.3 K/cumm [facility] Monocyte abs 1.4(H) 0.2 - 0.8 K/cumm [facility] Eosinophil abs 0.1 0.0 - 0.5 K/cumm [facility] Basophil abs 0.0 0.0 - 0.1 K/cumm [facility] Neutrophil pct 69.0 % [facility] Comment: Interpretive Data Percent cell count reference ranges are not reported, since discordance with absolute values may lead to misinterpretation of CBC data. Current Interpretive Data was last revised on 2017. Imm gran pct 0.7 % [facility] Comment: Interpretive Data Percent cell count reference ranges are not reported, since discordance with absolute values may lead to misinterpretation of CBC data. Current Interpretive Data was last revised on 2017. Lymphocyte pct 16.0 % [facility] Comment: Interpretive Data Percent cell count reference ranges are not reported, since discordance with absolute values may lead to misinterpretation of CBC data. Current Interpretive Data was last revised on 2017. Monocyte pct 12.7 % [facility] Comment: Interpretive Data Percent cell count reference ranges are not reported, since discordance with absolute values may lead to misinterpretation of CBC data. Current Interpretive Data was last revised on 2017. Eosinophil pct 1.2 % [facility] Comment: Interpretive Data Percent cell count reference ranges are not reported, since discordance with absolute values may lead to misinterpretation of CBC data. Current Interpretive Data was last revised on 2017. Basophil pct 0.4 % [facility] Comment: Interpretive Data Percent cell count reference ranges are not reported, since discordance with absolute values may lead to misinterpretation of CBC data. Current Interpretive Data was last revised on 2017. Blood 08/25/2024 11:3 3 PM BUSINESS AND SERVICES INSTRUCTOR 08/26/2024 12:47 AM BUSINESS AND SERVICES INSTRUCTOR us Radha Kirk REHABILITATION SERVICES COUNSELOR LAB BLOOD ORDERABLES Final Result [facility] Department [place] [address] * (ABNORMAL) CBC with auto differential (08/25/2024 11:33 PM BUSINESS AND SERVICES INSTRUCTOR) Pathologist [facility] WBC 10.9(H) 3.8 - 9.9 K/cumm Hgb 8.2(L) 11.9 - 15.5 g/dL [facility] Hct 25.1(L) 35.6 - 45.5 % [facility] Plt 160 150 - 400 K/cumm [facility] MPV 9.9 9.1 - 12.3 fL [facility] RBC 2.83(L) 3.90 - 5.20 M/cumm [facility] MCV 88.7 81.3 - 96.4 fL [facility] MCH 29.0 27.1 - 33.3 pg [facility] MCHC 32.7 32.3 - 35.7 g/dL [facility] RDW CV 14.9 11.1 - 14.9 % [facility] RDW SD 48.1 35.7 - 48.1 fL [facility] NRBC abs 0.00 0.00 - 0.01 K/cumm [facility] Blood 08/25/2024 11:3 3 PM BUSINESS AND SERVICES INSTRUCTOR 08/26/2024 12:47 AM BUSINESS AND SERVICES INSTRUCTOR us Radha Kirk REHABILITATION SERVICES COUNSELOR LAB BLOOD ORDERABLES Final Result [facility] [place] [address] * Critical Care (08/25/2024 9:45 PM BUSINESS AND SERVICES INSTRUCTOR) Narrative Felice Goyal MD - 08/25/2024 9:45 PM BUSINESS AND SERVICES INSTRUCTOR Felice Goyal MD 08/25/2024 9:46 PM Critical [...] to a continuous cardiac monitored bed. us Felice Goyal MD IN CLINIC/BEDSIDE HIWOT LIRA Final Result * POCT glucose (08/25/2024 9:13 PM BUSINESS AND SERVICES INSTRUCTOR) Glucose, POC 194 70 - 199 mg/dL Blood 08/25/2024 9:13 PM BUSINESS AND SERVICES INSTRUCTOR 08/25/2024 9:13 PM BUSINESS AND SERVICES INSTRUCTOR us Tashi Parisi MD LAB POCT ORDERABLES - DEV ICE Final Result [facility] Department [place] [address] * (ABNORMAL) POCT glucose (08/25/2024 7:49 PM BUSINESS AND SERVICES INSTRUCTOR) Glucose, POC 238(H) 70 - 199 mg/dL Blood 08/25/2024 7:49 PM BUSINESS AND SERVICES INSTRUCTOR 08/25/2024 7:49 PM BUSINESS AND SERVICES INSTRUCTOR Tashi Parisi MD LAB POCT ORDERABLES - DEV ICE Final Result Performing Organization Address [facility] de Phone Number [facility] [place] [address] * POCT glucose (08/25/2024 5:55 PM BUSINESS AND SERVICES INSTRUCTOR) Glucose, POC 150 70 - 199 mg/dL Blood 08/25/2024 5:55 PM BUSINESS AND SERVICES INSTRUCTOR 08/25/2024 5:55 PM BUSINESS AND SERVICES INSTRUCTOR Tashi Parisi MD LAB POCT ORDERABLES - DEV ICE Final Result Performing Organization Address [facility] Phone Number [facility] [place] [address] * XR Hand Right 3 or More Views (08/25/2024 2:50 PM BUSINESS AND SERVICES INSTRUCTOR) Anatomical Region Laterality Modality Upper Extremities, Hand Right Computed Radiography 08/25/2024 4:42 PM BUSINESS AND SERVICES INSTRUCTOR Impressions 08/25/2024 4:55 PM BUSINESS AND SERVICES INSTRUCTOR 1. 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 2. Mild scapholunate interval widening. Dictated by: Carlos Min MD The radiology attending physician has personally reviewed this study, and had reviewed and/or edited this written report and agrees with it. Electronically signed by: Félix Burdick M.D. Narrative 08/25/2024 4:55 PM BUSINESS AND SERVICES INSTRUCTOR EXAMINATION: XR WRIST RIGHT 3 OR MORE [...] it. Electronically signed by: Félix Burdick M.D. Radha Kirk REHABILITATION SERVICES COUNSELOR IMG XR PROCEDURES Fi nal Result * XR Wrist Right 3 or More Views (08/25/2024 2:50 PM BUSINESS AND SERVICES INSTRUCTOR) Anatomical Region Laterality Modality Upper Extremities, Wrist Right Compute d Radiography 08/25/2024 4:42 PM BUSINESS AND SERVICES INSTRUCTOR Impressions 08/25/2024 4:55 PM BUSINESS AND SERVICES INSTRUCTOR 1. 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 2. Mild scapholunate interval widening. Dictated by: Carlos Min MD The radiology attending physician has personally reviewed this study, and had reviewed and/or edited this written report and agrees with it. Electronically signed by: Félix Burdick M.D. Narrative 08/25/2024 4:55 PM BUSINESS AND SERVICES INSTRUCTOR EXAMINATION: XR WRIST RIGHT 3 OR MORE [...] by: Félix Burdick M.D. us Radha Kirk REHABILITATION SERVICES COUNSELOR IMG XR PROCEDURES Fi nal Result * (ABNORMAL) eGFR (08/25/2024 1:30 PM BUSINESS AND SERVICES INSTRUCTOR) eGFR 35(L) >=60 mL/min/1. 73 m2 Comment: [...] of Race in Diagnosing Kidney Disease, JASN 202). The CKD-EPI equation should not be used for patients with unstable renal function and has not been validated in children and those over 70. Current interpretive data was last reviewed 2021. Blood 08/25/2024 1:30 PM BUSINESS AND SERVICES INSTRUCTOR 08/25/2024 2:39 PM BUSINESS AND SERVICES INSTRUCTOR us Felice Goyal MD LAB BLOOD ORDERABLES F inal Result [facility] Department [place] [address] * (ABNORMAL) Differential, auto (08/25/2024 1:30 PM BUSINESS AND SERVICES INSTRUCTOR) Neutrophil abs 7.8(H) 1.5 - 6.5 K/cumm Imm gran abs 0.1 0.0 - 0.1 K/cumm [facility] Lymphocyte abs 1.2 0.8 - 3.3 K/cumm [facility] Monocyte abs 0.9(H) 0.2 - 0.8 K/cumm [facility] Eosinophil abs 0.0 0.0 - 0.5 K/cumm [facility] Basophil abs 0.0 0.0 - 0.1 K/cumm [facility] Neutrophil pct 78.3 % [facility] Comment: Interpretive Data Percent cell count reference ranges are not reported, since discordance with absolute values may lead to misinterpretation of CBC data. Current Interpretive Data was last revised on 2017. Imm gran pct 0.6 % [facility] Comment: Interpretive Data Percent cell count reference ranges are not reported, since discordance with absolute values may lead to misinterpretation of CBC data. Current Interpretive Data was last revised on 2017. Lymphocyte pct 12.0 % [facility] Comment: Interpretive Data Percent cell count reference ranges are not reported, since discordance with absolute values may lead to misinterpretation of CBC data. Current Interpretive Data was last revised on 2017. Monocyte pct 8.9 % [facility] Comment: Interpretive Data Percent cell count reference ranges are not reported, since discordance with absolute values may lead to misinterpretation of CBC data. Current Interpretive Data was last revised on 2017. Eosinophil pct 0.0 % [facility] Comment: Interpretive Data Percent cell count reference ranges are not reported, since discordance with absolute values may lead to misinterpretation of CBC data. Current Interpretive Data was last revised on 2017. Basophil pct 0.2 % [facility] Comment: Interpretive Data Percent cell count reference ranges are not reported, since discordance with absolute values may lead to misinterpretation of CBC data. Current Interpretive Data was last revised on 2017. Blood 08/25/2024 1:30 PM BUSINESS AND SERVICES INSTRUCTOR 08/25/2024 2:38 PM BUSINESS AND SERVICES INSTRUCTOR us Radha Kirk REHABILITATION SERVICES COUNSELOR LAB BLOOD ORDERABLES Final Result Performing Organization Address City/[facility]/ZIP Co de Phone Number [facility] [place] [address] * (ABNORMAL) CBC with auto differential (08/25/2024 1:30 PM BUSINESS AND SERVICES INSTRUCTOR) WBC 10.0(H) 3.8 - 9.9 K/cumm Hgb 8.6(L) 11.9 - 15.5 g/dL [facility] Hct 26.5(L) 35.6 - 45.5 % [facility] Plt 168 150 - 400 K/cumm [facility] MPV 10.2 9.1 - 12.3 fL [facility] RBC 2.94(L) 3.90 - 5.20 M/cumm [facility] MCV 90.1 81.3 - 96.4 fL [facility] MCH 29.3 27.1 - 33.3 pg [facility] MCHC 32.5 32.3 - 35.7 g/dL [facility] RDW CV 14.7 11.1 - 14.9 % [facility] RDW SD 48.7(H) 35.7 - 48.1 fL [facility] NRBC abs 0.00 0.00 - 0.01 K/cumm [facility] Blood 08/25/2024 1:30 PM BUSINESS AND SERVICES INSTRUCTOR 08/25/2024 2:38 PM BUSINESS AND SERVICES INSTRUCTOR us Radha Kirk REHABILITATION SERVICES COUNSELOR LAB BLOOD ORDERABLES Final Result Performing Organization Address City/[facility]/ZIP Co de Phone Number [facility] [place] [address] * Phosphorus (08/25/2024 1:30 PM BUSINESS AND SERVICES INSTRUCTOR) [facility] Phosphorus, pl 3.5 2.3 - 4.5 mg/dL Blood 08/25/2024 1:30 PM BUSINESS AND SERVICES INSTRUCTOR 08/25/2024 2:38 PM BUSINESS AND SERVICES INSTRUCTOR Sharan De La Vega MD LAB BLOOD ORDERABLES Fin al Result Performing Organization Address City/[facility] Co de Phone Number [facility] [place] [address] * Magnesium (08/25/2024 1:30 PM BUSINESS AND SERVICES INSTRUCTOR) [facility] Magnesium 1.6 1.4 - 2.5 mg/dL Blood 08/25/2024 1:30 PM BUSINESS AND SERVICES INSTRUCTOR 08/25/2024 2:38 PM BUSINESS AND SERVICES INSTRUCTOR Sharan De La Vega MD LAB BLOOD ORDERABLES Fin al Result Performing Organization Address [facility] de Phone Number [facility] Department [place] [address] * (ABNORMAL) Basic metabolic panel (08/25/2024 1:30 PM BUSINESS AND SERVICES INSTRUCTOR) [facility] Sodium 138 135 - 145 mmol/L Potassium, pl 4.4 3.3 - 4.9 mmol/L [facility] Chloride 109 97 - 110 mmol/L [facility] CO2 19(L) 22 - 32 mmol/L [facility] Anion gap 10 2 - 15 mmol/L [facility] BUN 39(H) 6 - 25 mg/dL [facility] Creatinine 1.46(H) 0.60 - 1.10 mg/dL [facility] Glucose 214(H) 70 - 199 mg/dL [facility] Comment: Interpretive Data Fasting glucose >/= [...] 2022. Calcium 8.6 8.5 - 10.3 mg/dL [facility] Blood 08/25/2024 1:30 PM BUSINESS AND SERVICES INSTRUCTOR 08/25/2024 2:38 PM BUSINESS AND SERVICES INSTRUCTOR us Sharan De La Vega MD LAB BLOOD ORDERABLES Fin al Result Performing Organization Address [facility] Co de Phone Number [facility] [place] [address] * (ABNORMAL) POCT glucose (08/25/2024 11:42 AM BUSINESS AND SERVICES INSTRUCTOR) Glucose, POC 206(H) 70 - 199 mg/dL Blood 08/25/2024 11:4 2 AM BUSINESS AND SERVICES INSTRUCTOR 08/25/2024 11:42 AM BUSINESS AND SERVICES INSTRUCTOR Tashi Parisi MD LAB POCT ORDERABLES - DEV ICE Final Result Performing Organization Address [facility] de Phone Number [facility] Department [place] [address] * (ABNORMAL) POCT glucose (08/25/2024 8:10 AM BUSINESS AND SERVICES INSTRUCTOR) Glucose, POC 237(H) 70 - 199 mg/dL Blood 08/25/2024 8:10 AM BUSINESS AND SERVICES INSTRUCTOR 08/25/2024 8:10 AM BUSINESS AND SERVICES INSTRUCTOR Tashi Parisi MD LAB POCT ORDERABLES - DEV ICE Final Result Performing Organization Address [facility] de Phone Number [facility] Department [place] [address] * (ABNORMAL) Differential, auto (08/24/2024 11:36 PM BUSINESS AND SERVICES INSTRUCTOR) Pathologist [facility] Neutrophil abs 12.8(H) 1.5 - 6.5 K/cumm Imm gran abs 0.1 0.0 - 0.1 K/cumm [facility] Lymphocyte abs 0.9 0.8 - 3.3 K/cumm [facility] Monocyte abs 2.1(H) 0.2 - 0.8 K/cumm [facility] Eosinophil abs 0.0 0.0 - 0.5 K/cumm [facility] Basophil abs 0.1 0.0 - 0.1 K/cumm [facility] Neutrophil pct 80.3 % [facility] Comment: Interpretive Data Percent cell count reference ranges are not reported, since discordance with absolute values may lead to misinterpretation of CBC data. Current Interpretive Data was last revised on 2017. Imm gran pct 0.4 % [facility] Comment: Interpretive Data Percent cell count reference ranges are not reported, since discordance with absolute values may lead to misinterpretation of CBC data. Current Interpretive Data was last revised on 2017. Lymphocyte pct 5.6 % [facility] Comment: Interpretive Data Percent cell count reference ranges are not reported, since discordance with absolute values may lead to misinterpretation of CBC data. Current Interpretive Data was last revised on 2017. Monocyte pct 13.3 % [facility] Comment: Interpretive Data Percent cell count reference ranges are not reported, since discordance with absolute values may lead to misinterpretation of CBC data. Current Interpretive Data was last revised on 2017. Eosinophil pct 0.1 % [facility] Comment: Interpretive Data Percent cell count reference ranges are not reported, since discordance with absolute values may lead to misinterpretation of CBC data. Current Interpretive Data was last revised on 2017. Basophil pct 0.3 % [facility] Comment: Interpretive Data Percent cell count reference ranges are not reported, since discordance with absolute values may lead to misinterpretation of CBC data. Current Interpretive Data was last revised on 2017. Blood 08/24/2024 11:3 6 PM BUSINESS AND SERVICES INSTRUCTOR 08/24/2024 11:46 PM BUSINESS AND SERVICES INSTRUCTOR us Davina Mckeon MD LAB BLOOD ORDERABLES Final Resul t Performing Organization Address [facility] de Phone Number [facility] Department [place] [address] * (ABNORMAL) CBC with auto differential (08/24/2024 11:36 PM BUSINESS AND SERVICES INSTRUCTOR) [facility] WBC 16.0(H) 3.8 - 9.9 K/cumm Hgb 10.6(L) 11.9 - 15.5 g/dL [facility] Hct 32.6(L) 35.6 - 45.5 % [facility] Plt 218 150 - 400 K/cumm [facility] MPV 9.3 9.1 - 12.3 fL [facility] RBC 3.67(L) 3.90 - 5.20 M/cumm [facility] MCV 88.8 81.3 - 96.4 fL [facility] MCH 28.9 27.1 - 33.3 pg [facility] MCHC 32.5 32.3 - 35.7 g/dL [facility] RDW CV 14.5 11.1 - 14.9 % [facility] RDW SD 47.5 35.7 - 48.1 fL [facility] NRBC abs 0.00 0.00 - 0.01 K/cumm [facility] Blood 08/24/2024 11:3 6 PM BUSINESS AND SERVICES INSTRUCTOR 08/24/2024 11:46 PM BUSINESS AND SERVICES INSTRUCTOR Davina Mckeon MD LAB BLOOD ORDERABLES Final Resul t Performing Organization Address [facility] Co de Phone Number [facility] Department [place] [address] * (ABNORMAL) POCT glucose (08/24/2024 11:30 PM BUSINESS AND SERVICES INSTRUCTOR) Pathologist [facility] Glucose, POC 202(H) 70 - 199 mg/dL Blood 08/24/2024 11:3 0 PM BUSINESS AND SERVICES INSTRUCTOR 08/24/2024 11:30 PM BUSINESS AND SERVICES INSTRUCTOR Tashi Parisi MD LAB POCT ORDERABLES - DEV ICE Final Result [facility] [place] [address] * (ABNORMAL) POC Blood Gas and Chemistries, Arterial - (08/24/2024 10:52 PM BUSINESS AND SERVICES INSTRUCTOR) pH, Art POC 7.22(L) 7.35 - 7.45 pCO2, Art POC 41 35 - 45 mmHg [facility] pO2, Art POC 160(H) 83 - 108 mmHg [facility] Na, POC 145 135 - 145 mmol/L [facility] K POC 3.3 3.3 - 4.9 mmol/L [facility] Comment: Interpretive Data Not all point of care methods assess for hemolysis. Confirm with instrument and retest K+ if not consistent with clinical signs and symptoms. Current Interpretive Data was last revised on 2023. Cl, POC 119(H) 97 - 110 mmol/L [facility] Ionized Ca, POC 5.79(H) 4.50 - 5.10 mg/dL [facility] Glucose, POC 234(H) 70 - 199 mg/dL [facility] Lactate, POC 3.0(H) 0.7 - 2.2 mmol/L [facility] SO2 (nasra) arterial 99(H) 90 - 95 % [facility] Base excess, POC -10.3 mmol/L [facility] HCO3, Art POC 17(L) 20 - 30 mmol/L [facility] Hct, POC 30.0(L) 36.3 - 45.3 % [facility] Total Hb, POC 10.1(L) 11.9 - 15.5 g/dL [facility] Blood 08/24/2024 10:5 2 PM BUSINESS AND SERVICES INSTRUCTOR 08/24/2024 10:52 PM BUSINESS AND SERVICES INSTRUCTOR Tashi Parisi MD LAB POCT ORDERABLES - DEV ICE Final Result [facility] [place] [address] * (ABNORMAL) POC Blood Gas and Chemistries, Arterial - (08/24/2024 10:07 PM BUSINESS AND SERVICES INSTRUCTOR) pH, Art POC 7.26(L) 7.35 - 7.45 pCO2, Art POC 38 35 - 45 mmHg [facility] pO2, Art POC 164(H) 83 - 108 mmHg [facility] Na, POC 144 135 - 145 mmol/L [facility] K POC 3.9 3.3 - 4.9 mmol/L [facility] Comment: Interpretive Data Not all point of care methods assess for hemolysis. Confirm with instrument and retest K+ if not consistent with clinical signs and symptoms. Current Interpretive Data was last revised on 2023. Cl, POC 118(H) 97 - 110 mmol/L [facility] Ionized Ca, POC 5.86(H) 4.50 - 5.10 mg/dL [facility] Glucose, POC 265(H) 70 - 199 mg/dL [facility] Lactate, POC 2.8(H) 0.7 - 2.2 mmol/L [facility] SO2 (nasra) arterial 99(H) 90 - 95 % [facility] Base excess, POC -9.3 mmol/L [facility] HCO3, Art POC 17(L) 20 - 30 mmol/L [facility] Hct, POC 31.0(L) 36.3 - 45.3 % [facility] Total Hb, POC 10.4(L) 11.9 - 15.5 g/dL [facility] Blood 08/24/2024 10:0 7 PM BUSINESS AND SERVICES INSTRUCTOR 08/24/2024 10:07 PM BUSINESS AND SERVICES INSTRUCTOR Tashi Parisi MD LAB POCT ORDERABLES - DEV ICE Final Result [facility] [place] [address] * Transfuse RBC (08/24/2024 9:45 PM BUSINESS AND SERVICES INSTRUCTOR) Blood us Davina Mckeon MD BLOOD TRANSFUSION ORDERABLES Fin al Result [facility] [place] [address] * Arterial Line (08/24/2024 9:43 PM BUSINESS AND SERVICES INSTRUCTOR) Narrative Ashok Santa MD - 08/24/2024 9:43 PM BUSINESS AND SERVICES INSTRUCTOR Ashok Santa MD 08/24/2024 9:44 PM Arterial Line Patient location: OR End time: 08/24/2024 8:55 PM Indication: continuous blood pressure monitoring, blood sampling needed and unable to use non-invasive cuff Ultrasound assisted: yes Staff: Supervising provider: Davina Mckeon MD Placed by: Resident: Ashok Santa MD Procedure prep: Prep solution: chlorhexadine/alcohol Prep: provider hat/mask and sterile gloves Arterial line: Catheter size: 3 Belarusian Catheter length: 8 cm Catheter type: wire-guided catheter Seldinger technique: yes Laterality: left Site: radial artery Line secured: Tegaderm and tape Results: good waveform and good blood return Number of attempts: 1 Assessment: Events: patient tolerated procedure well with no complications us Davina Mckeon MD ANESTHESIA ORDERABLES Edited Res ult - Final * Peripheral IV Catheter (08/24/2024 9:43 PM BUSINESS AND SERVICES INSTRUCTOR) Narrative Ashok Santa MD - 08/24/2024 9:43 PM BUSINESS AND SERVICES INSTRUCTOR Ashok Santa MD 08/24/2024 9:43 PM Peripheral [...] lt * Transfuse plasma (08/24/2024 9:39 PM BUSINESS AND SERVICES INSTRUCTOR) Blood Davina Mckeon MD BLOOD TRANSFUSION ORDERABLES Fin al Result Performing Organization Address [facility] Co de Phone Number [facility] [place] [address] * Transfuse plasma Standard plasma (08/24/2024 9:26 PM BUSINESS AND SERVICES INSTRUCTOR) Blood Davina Mckeon MD BLOOD TRANSFUSION ORDERABLES Fin al Result Performing Organization Address [facility] [place] [address] * Prepare plasma: 1 Units (08/24/2024 9:19 PM BUSINESS AND SERVICES INSTRUCTOR) Product code [id number] Unit Number [id number] [facility] Product Blood Type BPOS [facility] Dispense Status PRESUMED TRANSFUSED [facility] Blood (Blood, Venous) 08/24/2024 9:19 PM BUSINESS AND SERVICES INSTRUCTOR 08/24/2024 9:21 PM BUSINESS AND SERVICES INSTRUCTOR Narrative [facility] - 08/25/2024 4:00 PM BUSINESS AND SERVICES INSTRUCTOR Date required:-[id number] FFP # of Units:-1-Units Reasons:-Immediate need for surgical intervention us Davina Mckeon MD BLOOD BANK PRODUCT ORDERABLES Fi nal Result Performing Organization Address [facility] Co de Phone Number [facility] [place] [address] * Prepare RBC: 2 Units (08/24/2024 9:19 PM BUSINESS AND SERVICES INSTRUCTOR) Product code [id number] Unit Number [id number] H [facility] Product Blood Type OPOS [facility] Dispense Status PRESUMED TRANSFUSED [facility] Blood 08/24/2024 9:19 PM BUSINESS AND SERVICES INSTRUCTOR 08/24/2024 9:21 PM BUSINESS AND SERVICES INSTRUCTOR Narrative [facility] - 08/25/2024 4:00 PM BUSINESS AND SERVICES INSTRUCTOR Are special requirements needed? (All products are leukoreduced and CMV- safe)- >No Date required:-[id number] LRRBC # of [id number] Reasons:-Intra-op transfusion} Davina Mckeon MD BLOOD BANK PRODUCT ORDERABLES Fi nal Result [facility] Department [place] [address] * (ABNORMAL) POC Blood Gas and Chemistries, Arterial - (08/24/2024 9:16 PM BUSINESS AND SERVICES INSTRUCTOR) pH, Art POC 7.15(C) 7.35 - 7.45 pCO2, Art POC 42 35 - 45 mmHg [facility] pO2, Art POC 140(H) 83 - 108 mmHg [facility] Na, POC 142 135 - 145 mmol/L [facility] K POC 3.8 3.3 - 4.9 mmol/L [facility] Comment: Interpretive Data Not all point of care methods assess for hemolysis. Confirm with instrument and retest K+ if not consistent with clinical signs and symptoms. Current Interpretive Data was last revised on 2023. Cl, POC 118(H) 97 - 110 mmol/L [facility] Ionized Ca, POC 4.95 4.50 - 5.10 mg/dL [facility] Glucose, POC 251(H) 70 - 199 mg/dL [facility] Lactate, POC 1.8 0.7 - 2.2 mmol/L [facility] SO2 (nasra) arterial 99(H) 90 - 95 % [facility] Base excess, POC -13.4 mmol/L [facility] HCO3, Art POC 14(L) 20 - 30 mmol/L [facility] Hct, POC 27.0(L) 36.3 - 45.3 % [facility] Total Hb, POC 9.0(L) 11.9 - 15.5 g/dL [facility] Blood 08/24/2024 9:16 PM BUSINESS AND SERVICES INSTRUCTOR 08/24/2024 9:16 PM BUSINESS AND SERVICES INSTRUCTOR Tashi Parisi MD LAB POCT ORDERABLES - DEV ICE Final Result Performing Organization Address [facility] [place] [address] * (ABNORMAL) POCT hemoglobin, hematocrit and platelet count (08/24/2024 9:15 PM BUSINESS AND SERVICES INSTRUCTOR) Pathologist [facility] Hgb, POC 8.9(L) 11.9 - 15.5 g/dL Hematocrit POC 27.4(L) 35.6 - 45.5 % [facility] Platelet POC 263 150 - 400 K/cumm [facility] Blood 08/24/2024 9:15 PM BUSINESS AND SERVICES INSTRUCTOR 08/24/2024 9:15 PM BUSINESS AND SERVICES INSTRUCTOR Tashi Parisi MD LAB POCT ORDERABLES - DEV ICE Final Result Performing Organization Address [facility] de Phone Number [facility] [place] [address] * (ABNORMAL) POCT Partial thromboplastin time (PTT) (08/24/2024 9:15 PM BUSINESS AND SERVICES INSTRUCTOR) Pathologist [facility] APTT, POC 26.6(L) 32.5 - 46.1 sec Blood 08/24/2024 9:15 PM BUSINESS AND SERVICES INSTRUCTOR 08/24/2024 9:15 PM BUSINESS AND SERVICES INSTRUCTOR Tashi Parisi MD LAB POCT ORDERABLES - DEV ICE Final Result Performing Organization Address [facility] [place] [address] * (ABNORMAL) POCT prothrombin time (08/24/2024 9:14 PM BUSINESS AND SERVICES INSTRUCTOR) PT, POC 21.1(H) 11.7 - 16.6 sec INR, POC 1.6(H) 0.9 - 1.2 [facility] Blood 08/24/2024 9:14 PM BUSINESS AND SERVICES INSTRUCTOR 08/24/2024 9:14 PM BUSINESS AND SERVICES INSTRUCTOR Tashi Parisi MD LAB POCT ORDERABLES - DEV ICE Final Result Performing Organization Address [facility] Co de Phone Number [facility] Department [place] [address] * Prepare plasma: 1 Units Standard plasma (08/24/2024 9:06 PM BUSINESS AND SERVICES INSTRUCTOR) Product code [id number] Unit Number [id number] [facility] Product Blood Type OPOS [facility] Dispense Status PRESUMED TRANSFUSED [facility] Blood (Blood, Venous) 08/24/2024 9:06 PM BUSINESS AND SERVICES INSTRUCTOR 08/24/2024 9:05 PM BUSINESS AND SERVICES INSTRUCTOR Narrative [facility] - 08/25/2024 4:00 PM BUSINESS AND SERVICES INSTRUCTOR Is this plasma order intended for a COVID-19 patient as convalescent plasma?->Standard plasma Special Requirements Needed?->No Date required:-[id number] FFP # of Units:-1-Units Reasons:-Active major bleeding with coagulopathy} Davina Mckeon MD BLOOD BANK PRODUCT ORDERABLES Fi nal Result Performing Organization Address [facility] Co de Phone Number [facility] Department [place] [address] * Transfuse RBC (08/24/2024 9:04 PM BUSINESS AND SERVICES INSTRUCTOR) Blood Davina Mckeon MD BLOOD TRANSFUSION ORDERABLES Fin al Result Performing Organization Address [facility]/ZIP Co de Phone Number [facility] Department [place] [address] * Prepare RBC: 3 Units (08/24/2024 8:31 PM BUSINESS AND SERVICES INSTRUCTOR) Product code [id number] Unit Number [id number] [facility] Product Blood Type OPOS [facility] Dispense Status RETURNED [facility] Product code [id number] [facility] Unit Number [id number] [facility] Product Blood Type OPOS [facility] Dispense Status RETURNED [facility] Product code [id number] [facility] Unit Number [id number] [facility] Product Blood Type OPOS [facility] Dispense Status PRESUMED TRANSFUSED [facility] Blood 08/24/2024 8:31 PM BUSINESS AND SERVICES INSTRUCTOR 08/24/2024 8:35 PM BUSINESS AND SERVICES INSTRUCTOR Narrative [facility] - 08/26/2024 10:17 AM BUSINESS AND SERVICES INSTRUCTOR Are special requirements needed? (All products are leukoreduced and CMV- safe)- >No Date required:-[id number] LRRBC # of [id number] Reasons:-Intra-op transfusion} us Davina Mckeon MD BLOOD BANK PRODUCT ORDERABLES Fi nal Result Performing Organization Address [facility] Co de Phone Number [facility] Department [place] [address] * FL Fluoroscopy < 1 Hour (08/24/2024 8:00 PM BUSINESS AND SERVICES INSTRUCTOR) Narrative [facility] - 08/28/2024 5:44 PM BUSINESS AND SERVICES INSTRUCTOR The images from this study are not interpreted by Radiology. Please refer to the physician's procedure / OR operative note. us Sharan De La Vega MD IMG FLUOROSCOPY PROCEDUR ES Final Result Performing Organization Address [facility] Co de Phone Number [email or web address] * POCT glucose (08/24/2024 6:36 PM BUSINESS AND SERVICES INSTRUCTOR) Glucose, POC 144 70 - 199 mg/dL Blood 08/24/2024 6:36 PM BUSINESS AND SERVICES INSTRUCTOR 08/24/2024 6:36 PM BUSINESS AND SERVICES INSTRUCTOR us Tashi Parisi MD LAB POCT ORDERABLES - DEV ICE Final Result Performing Organization Address [facility] Co de Phone Number [facility] [place] [address] * DC AN ELECTIVE ENDOTRACHEAL AIRWAY, DC AN PROCEDURE PLACEHOLDER (08/24/2024 6:22 PM BUSINESS AND SERVICES INSTRUCTOR) Maricruz Trivedi CRNA - 08/24/2024 6:22 PM BUSINESS AND SERVICES INSTRUCTOR Maricruz Rojo CRNA 08/24/2024 6:23 PM Airway Patient location: OR Urgency: elective Indications for airway management: anesthesia Difficult airway: no Staff: Supervising provider: Lenin Moreland MD Placed by: MENTAL HEALTH CONSULTANT: Maricruz Rojo CRNA Emergent airway documentation: Risks [...] Moreland MD ANESTHESIA ORDERABLES Final Result * DC AN PROCEDURE PLACEHOLDER (08/24/2024 2:53 PM BUSINESS AND SERVICES INSTRUCTOR) Serjio Noonan MD - 08/24/2024 2:53 PM BUSINESS AND SERVICES INSTRUCTOR Harley Espinoza MD 08/24/2024 4:10 PM Peripheral [...] Result * Check Sample (08/24/2024 2:14 PM BUSINESS AND SERVICES INSTRUCTOR) ABO Rh O Positive [facility] HC[facility] OTHER 08/24/2024 2:14 PM BUSINESS AND SERVICES INSTRUCTOR 08/24/2024 2:24 PM BUSINESS AND SERVICES INSTRUCTOR Tashi Parisi MD LAB BLOOD ORDERABLES Anna l Result Performing Organization Address City/[facility]/ZIP Co de Phone Number [facility] [place] [address] [facility] * POCT glucose (08/24/2024 2:10 PM BUSINESS AND SERVICES INSTRUCTOR) Glucose, POC 155 70 - 199 mg/dL Blood 08/24/2024 2:10 PM BUSINESS AND SERVICES INSTRUCTOR 08/24/2024 2:10 PM BUSINESS AND SERVICES INSTRUCTOR Tashi Parisi MD LAB POCT ORDERABLES - DEV ICE Final Result Performing Organization Address [facility]/ZIP Co de Phone Number [facility] [place] [address] * POCT glucose (08/24/2024 11:51 AM BUSINESS AND SERVICES INSTRUCTOR) Glucose, POC 176 70 - 199 mg/dL Blood 08/24/2024 11:5 1 AM BUSINESS AND SERVICES INSTRUCTOR 08/24/2024 11:51 AM BUSINESS AND SERVICES INSTRUCTOR us Tashi Parisi MD LAB POCT ORDERABLES - DEV ICE Final Result Performing Organization Address [facility] Co de Phone Number [facility] [place] [address] * (ABNORMAL) eGFR (08/24/2024 9:39 AM BUSINESS AND SERVICES INSTRUCTOR) eGFR 39(L) >=60 mL/min/1. 73 m2 Comment: [...] last reviewed 2021. Blood 08/24/2024 9:39 AM BUSINESS AND SERVICES INSTRUCTOR 08/24/2024 9:54 AM BUSINESS AND SERVICES INSTRUCTOR us Radha Kirk NP LAB BLOOD ORDERABLES Final Result Performing Organization Address [facility]/ZIP Co de Phone Number ROC[facility] Department [place] [address] * (ABNORMAL) Differential, auto (08/24/2024 9:39 AM BUSINESS AND SERVICES INSTRUCTOR) Neutrophil abs 4.8 1.5 - 6.5 K/cumm Imm gran abs 0.0 0.0 - 0.1 K/cumm [facility] Lymphocyte abs 1.4 0.8 - 3.3 K/cumm [facility] Monocyte abs 0.9(H) 0.2 - 0.8 K/cumm [facility] Eosinophil abs 0.2 0.0 - 0.5 K/cumm [facility] Basophil abs 0.1 0.0 - 0.1 K/cumm [facility] Neutrophil pct 64.5 % [facility] Comment: Interpretive Data Percent cell count reference ranges are not reported, since discordance with absolute values may lead to misinterpretation of CBC data. Current Interpretive Data was last revised on 2017. Imm gran pct 0.4 % [facility] Comment: Interpretive Data Percent cell count reference ranges are not reported, since discordance with absolute values may lead to misinterpretation of CBC data. Current Interpretive Data was last revised on 2017. Lymphocyte pct 18.6 % [facility] Comment: Interpretive Data Percent cell count reference ranges are not reported, since discordance with absolute values may lead to misinterpretation of CBC data. Current Interpretive Data was last revised on 2017. Monocyte pct 12.5 % [facility] Comment: Interpretive Data Percent cell count reference ranges are not reported, since discordance with absolute values may lead to misinterpretation of CBC data. Current Interpretive Data was last revised on 2017. Eosinophil pct 3.1 % [facility] Comment: Interpretive Data Percent cell count reference ranges are not reported, since discordance with absolute values may lead to misinterpretation of CBC data. Current Interpretive Data was last revised on 2017. Basophil pct 0.9 % [facility] Comment: Interpretive Data Percent cell count reference ranges are not reported, since discordance with absolute values may lead to misinterpretation of CBC data. Current Interpretive Data was last revised on 2017. Blood 08/24/2024 9:39 AM BUSINESS AND SERVICES INSTRUCTOR 08/24/2024 9:54 AM BUSINESS AND SERVICES INSTRUCTOR us Radha Kirk REHABILITATION SERVICES COUNSELOR LAB BLOOD ORDERABLES Final Result [facility] Department [place] [address] * (ABNORMAL) CBC with auto differential (08/24/2024 9:39 AM BUSINESS AND SERVICES INSTRUCTOR) [facility] WBC 7.4 3.8 - 9.9 K/cumm Hgb 12.2 11.9 - 15.5 g/dL [facility] Hct 39.5 35.6 - 45.5 % [facility] Plt 235 150 - 400 K/cumm [facility] MPV 9.6 9.1 - 12.3 fL [facility] RBC 4.35 3.90 - 5.20 M/cumm [facility] MCV 90.8 81.3 - 96.4 fL [facility] MCH 28.0 27.1 - 33.3 pg [facility] MCHC 30.9(L) 32.3 - 35.7 g/dL [facility] RDW CV 14.6 11.1 - 14.9 % [facility] RDW SD 49.4(H) 35.7 - 48.1 fL [facility] NRBC abs 0.00 0.00 - 0.01 K/cumm [facility] Blood 08/24/2024 9:39 AM BUSINESS AND SERVICES INSTRUCTOR 08/24/2024 9:54 AM BUSINESS AND SERVICES INSTRUCTOR us Radha Kirk REHABILITATION SERVICES COUNSELOR LAB BLOOD ORDERABLES Final Result Performing Organization Address City/[facility]/ZIP Co de Phone Number [facility] [place] [address] * Phosphorus (08/24/2024 9:39 AM BUSINESS AND SERVICES INSTRUCTOR) [facility] Phosphorus, pl 3.6 2.3 - 4.5 mg/dL Blood 08/24/2024 9:39 AM BUSINESS AND SERVICES INSTRUCTOR 08/24/2024 9:54 AM BUSINESS AND SERVICES INSTRUCTOR Radha Kirk REHABILITATION SERVICES COUNSELOR LAB BLOOD ORDERABLES Final Result [facility] Department [place] [address] * Magnesium (08/24/2024 9:39 AM BUSINESS AND SERVICES INSTRUCTOR) Pathologist [facility] Magnesium 1.9 1.4 - 2.5 mg/dL Blood 08/24/2024 9:39 AM BUSINESS AND SERVICES INSTRUCTOR 08/24/2024 9:54 AM BUSINESS AND SERVICES INSTRUCTOR Radha Kirk REHABILITATION SERVICES COUNSELOR LAB BLOOD ORDERABLES Final Result [facility] Department [place] [address] * (ABNORMAL) Comprehensive metabolic panel (08/24/2024 9:39 AM BUSINESS AND SERVICES INSTRUCTOR) [facility] Sodium 140 135 - 145 mmol/L Potassium, pl 3.5 3.3 - 4.9 mmol/L [facility] Chloride 108 97 - 110 mmol/L [facility] CO2 24 22 - 32 mmol/L [facility] Anion gap 8 2 - 15 mmol/L [facility] BUN 35(H) 6 - 25 mg/dL [facility] Creatinine 1.33(H) 0.60 - 1.10 mg/dL [facility] Glucose 193 70 - 199 mg/dL [facility] Comment: Interpretive Data Fasting glucose >/= [...] 2022. Calcium 9.8 8.5 - 10.3 mg/dL [facility] Bilirubin, total 0.5 0.1 - 1.2 mg/dL [facility] Protein, pl 7.0 6.5 - 8.5 g/dL [facility] Albumin 3.7 3.5 - 5.0 g/dL [facility] Alk phos 96 40 - 130 Units/L [facility] ALT 12 7 - 45 Units/L [facility] AST 15 10 - 45 Units/L [facility] Blood 08/24/2024 9:39 AM BUSINESS AND SERVICES INSTRUCTOR 08/24/2024 9:54 AM BUSINESS AND SERVICES INSTRUCTOR us Radha Kirk NP LAB BLOOD ORDERABLES Final Result [facility] [place] [address] * POCT glucose (08/24/2024 8:16 AM BUSINESS AND SERVICES INSTRUCTOR) Glucose, POC 174 70 - 199 mg/dL Blood 08/24/2024 8:16 AM BUSINESS AND SERVICES INSTRUCTOR 08/24/2024 8:16 AM BUSINESS AND SERVICES INSTRUCTOR us Tashi Parisi MD LAB POCT ORDERABLES - DEV ICE Final Result Performing Organization Address [facility] Co de Phone Number [facility] [place] [address] * Potassium, whole blood (08/24/2024 3:38 AM BUSINESS AND SERVICES INSTRUCTOR) Potassium, bld 3.5 3.3 - 4.9 mmol/L Blood 08/24/2024 3:38 AM BUSINESS AND SERVICES INSTRUCTOR 08/24/2024 3:44 AM BUSINESS AND SERVICES INSTRUCTOR us Miranda Hunter MD LAB BLOOD ORDERABLES Final Result Performing Organization Address [facility] Co de Phone Number [facility] [place] [address] * POCT glucose (08/23/2024 10:27 PM BUSINESS AND SERVICES INSTRUCTOR) Glucose, POC 156 70 - 199 mg/dL Blood 08/23/2024 10:2 7 PM BUSINESS AND SERVICES INSTRUCTOR 08/23/2024 10:27 PM BUSINESS AND SERVICES INSTRUCTOR Tashi Parisi MD LAB POCT ORDERABLES - DEV ICE Final Result Performing Organization Address [facility] Co de Phone Number [facility] [place] [address] * (ABNORMAL) POCT glucose (08/23/2024 9:05 PM BUSINESS AND SERVICES INSTRUCTOR) [facility] Signature Glucose, POC 205(H) 70 - 199 mg/dL Blood 08/23/2024 9:05 PM BUSINESS AND SERVICES INSTRUCTOR 08/23/2024 9:05 PM BUSINESS AND SERVICES INSTRUCTOR Tashi Parisi MD LAB POCT ORDERABLES - DEV ICE Final Result Performing Organization Address [facility] Phone Number [facility] [place] [address] * CT Pelvis WO Contrast (08/23/2024 7:10 PM BUSINESS AND SERVICES INSTRUCTOR) Anatomical Region Laterality Modality Body N/A Computed Tomogra phy 08/23/2024 7:18 PM BUSINESS AND SERVICES INSTRUCTOR Impressions 08/23/2024 7:28 PM BUSINESS AND SERVICES INSTRUCTOR Changes of intramedullary nailing of the right [...] Toi Milan M.D. Narrative 08/23/2024 7:28 PM BUSINESS AND SERVICES INSTRUCTOR EXAMINATION: CT PELVIS WO CONTRAST HISTORY: Suspected [...] Toi Milan M.D. Minor Barnes MD IMG CT PROCEDURES Final Re sult * CT Cervical Spine WO Contrast (08/23/2024 5:30 PM BUSINESS AND SERVICES INSTRUCTOR) Anatomical Region Laterality Modality Spine N/A Computed Tomogra phy 08/23/2024 5:42 PM BUSINESS AND SERVICES INSTRUCTOR Impressions 08/23/2024 5:52 PM BUSINESS AND SERVICES INSTRUCTOR No acute fracture within the cervical spine. Dictated by: Maddi Pat MD The radiology attending physician has personally reviewed this study, and had reviewed and/or edited this written report and agrees with it. Electronically signed by: Sandy Garcia M.D. Narrative 08/23/2024 5:52 PM BUSINESS AND SERVICES INSTRUCTOR EXAMINATION: CT of the cervical spine without [...] by: Sandy Garcia M.D. Minor Barnes MD IMG CT PROCEDURES Final Re sult * (ABNORMAL) eGFR (08/23/2024 4:49 PM BUSINESS AND SERVICES INSTRUCTOR) eGFR 49(L) >=60 mL/min/1. 73 m2 Comment: [...] last reviewed 2021. Blood 08/23/2024 4:49 PM BUSINESS AND SERVICES INSTRUCTOR 08/23/2024 4:55 PM BUSINESS AND SERVICES INSTRUCTOR Minor Barnes MD LAB BLOOD ORDERABLES Final Result [facility] Department [place] [address] * Lipid panel (08/23/2024 4:49 PM BUSINESS AND SERVICES INSTRUCTOR) Cholesterol 146 30 - 199 mg/dL Comment: [...] revised on 2018. Triglycerides 93 <=149 mg/dL [facility] Comment: Interpretive Data Ages < or = [...] revised on 2018. HDL 45 >=40 mg/dL [facility] Comment: Interpretive Data Ages < or = [...] on 2018. LDL, calculated 84 <=129 mg/dL [facility] Comment: Interpretive Data Ages < or = 19 years Acceptable: <110 mg/dL Borderline high: 110-129 mg/dL High: >or= 130 mg/dL Ages > or = 20 years Optimal: <100 mg/dL Near optimal: 100-129 mg/dL Borderline high: 130-159 mg/dL High: >160 mg/dL Calculated using the Doss LDL-C estimating equation. This equation was implemented on 2024. Prior to this date LDL-C was estimated using the Friedewald equation. Literature References: 1. Expert Panel on Integrated Guidelines for Cardiovascular Health and Risk Reduction in Children and Adolescents. Pediatrics 2011;128:S213 2. NCEP Expert Panel. Circulation 2004;110:227 3. Romario M et al. TIMOTHY Cardiol. 2020 December 10;5(5):540-548. doi: 10.1001/jamacardio.2020.0013 Current Interpretive Data was last revised on 2024. Non-HDL Cholesterol 101 mg/dL [facility] Comment: Interpretive Data Ages < or = [...] last revised on 2018. Chol/HDL ratio 3 [facility] Blood 08/23/2024 4:49 PM BUSINESS AND SERVICES INSTRUCTOR 08/23/2024 4:55 PM BUSINESS AND SERVICES INSTRUCTOR Narrative [facility] - 08/24/2024 8:25 AM BUSINESS AND SERVICES INSTRUCTOR Reflex Tashi Parisi MD LAB BLOOD ORDERABLES Anna mari Result [facility] [place] [address] * (ABNORMAL) Comprehensive metabolic panel (08/23/2024 4:49 PM BUSINESS AND SERVICES INSTRUCTOR) Sodium 144 135 - 145 mmol/L Potassium, pl 3.1(L) 3.3 - 4.9 mmol/L [facility] Chloride 111(H) 97 - 110 mmol/L [facility] CO2 22 22 - 32 mmol/L [facility] Anion gap 11 2 - 15 mmol/L [facility] BUN 29(H) 6 - 25 mg/dL [facility] Creatinine 1.11(H) 0.60 - 1.10 mg/dL [facility] Glucose 218(H) 70 - 199 mg/dL [facility] Comment: Interpretive Data Fasting glucose >/= [...] 2022. Calcium 9.4 8.5 - 10.3 mg/dL [facility] Bilirubin, total 0.3 0.1 - 1.2 mg/dL [facility] Protein, pl 6.9 6.5 - 8.5 g/dL [facility] Albumin 3.6 3.5 - 5.0 g/dL [facility] Alk phos 93 40 - 130 Units/L [facility] ALT 10 7 - 45 Units/L [facility] AST 20 10 - 45 Units/L [facility] Blood 08/23/2024 4:49 PM BUSINESS AND SERVICES INSTRUCTOR 08/23/2024 4:55 PM BUSINESS AND SERVICES INSTRUCTOR Minor Barnes MD LAB BLOOD ORDERABLES Final Result [facility] [place] [address] * DC INJECTION AA&/STRD OTHER PERIPHERAL NERVE/BRANCH (08/23/2024 4:15 PM BUSINESS AND SERVICES INSTRUCTOR) Narrative Álvaro Flores MD - 08/23/2024 4:15 PM BUSINESS AND SERVICES INSTRUCTOR Minor Barnes MD 08/23/2024 4:17 PM Nerve Block Date/Time: 08/23/2024 4:15 PM Performed by: Minor Barnes MD Authorized by: Felice Goyal MD [place] Protocol: RN Notified of Procedure: yes Informed [...] 2 or 3 Views (08/23/2024 3:51 PM BUSINESS AND SERVICES INSTRUCTOR) Anatomical Region Laterality Modality Lower Extremities, Hip, Pelvis Right C omputed Radiography 08/23/2024 4:08 PM BUSINESS AND SERVICES INSTRUCTOR Impressions 08/23/2024 4:11 PM BUSINESS AND SERVICES INSTRUCTOR Extra-articular obliquely oriented mildly displaced fracture of the proximal right femoral shaft extending into the lesser trochanter. Dictated by: Karen Fari MD The radiology attending physician has personally reviewed this study, and had reviewed and/or edited this written report and agrees with it. Electronically signed by: Toi Milan M.D. Narrative 08/23/2024 4:11 PM BUSINESS AND SERVICES INSTRUCTOR EXAMINATION: XR PELVIS 1 OR 2 VIEWS [...] 2 or More Views (08/23/2024 3:35 PM BUSINESS AND SERVICES INSTRUCTOR) Anatomical Region Laterality Modality Lower Extremities, Thigh, Femur Right Computed Radiography 08/23/2024 4:08 PM BUSINESS AND SERVICES INSTRUCTOR Impressions 08/23/2024 4:11 PM BUSINESS AND SERVICES INSTRUCTOR Extra-articular obliquely oriented mildly displaced fracture of the proximal right femoral shaft extending into the lesser trochanter. Dictated by: Karen Fair MD The radiology attending physician has personally reviewed this study, and had reviewed and/or edited this written report and agrees with it. Electronically signed by: Toi Milan M.D. Narrative 08/23/2024 4:11 PM BUSINESS AND SERVICES INSTRUCTOR EXAMINATION: XR PELVIS 1 OR 2 VIEWS [...] 1 or 2 Views (08/23/2024 3:34 PM BUSINESS AND SERVICES INSTRUCTOR) Anatomical Region Laterality Modality Body, Pelvis N/A Computed Radiogr aphy 08/23/2024 4:08 PM BUSINESS AND SERVICES INSTRUCTOR Impressions 08/23/2024 4:11 PM BUSINESS AND SERVICES INSTRUCTOR Extra-articular obliquely oriented mildly displaced fracture of the proximal right femoral shaft extending into the lesser trochanter. Dictated by: Karen Fair MD The radiology attending physician has personally reviewed this study, and had reviewed and/or edited this written report and agrees with it. Electronically signed by: Toi Milan M.D. Narrative 08/23/2024 4:11 PM BUSINESS AND SERVICES INSTRUCTOR EXAMINATION: XR PELVIS 1 OR 2 VIEWS [...] it. Electronically signed by: Toi Milan M.D. us Minor Barnes MD IMG XR PROCEDURES Final Re sult * XR Chest 1 Vw Portable (08/23/2024 3:34 PM BUSINESS AND SERVICES INSTRUCTOR) Anatomical Region Laterality Modality Body, Chest N/A Computed Radiogr aphy 08/23/2024 4:01 PM BUSINESS AND SERVICES INSTRUCTOR Impressions 08/23/2024 4:11 PM BUSINESS AND SERVICES INSTRUCTOR The heart and mediastinal contours are normal. [...] Toi Milan M.D. Narrative 08/23/2024 4:11 PM BUSINESS AND SERVICES INSTRUCTOR EXAMINATION: 1 view chest radiograph Procedure Note [...] it. Electronically signed by: Toi Milan M.D. us Minor Barnes MD IM XR PROCEDURES Final Re sult * (ABNORMAL) Differential, auto (08/23/2024 3:09 PM BUSINESS AND SERVICES INSTRUCTOR) Neutrophil abs 11.1(H) 1.5 - 6.5 K/cumm Imm gran abs 0.1 0.0 - 0.1 K/cumm [facility] Lymphocyte abs 1.3 0.8 - 3.3 K/cumm [facility] Monocyte abs 0.7 0.2 - 0.8 K/cumm [facility] Eosinophil abs 0.0 0.0 - 0.5 K/cumm [facility] Basophil abs 0.1 0.0 - 0.1 K/cumm [facility] Neutrophil pct 83.7 % [facility] Comment: Interpretive Data Percent cell count reference ranges are not reported, since discordance with absolute values may lead to misinterpretation of CBC data. Current Interpretive Data was last revised on 2017. Imm gran pct 0.4 % [facility] Comment: Interpretive Data Percent cell count reference ranges are not reported, since discordance with absolute values may lead to misinterpretation of CBC data. Current Interpretive Data was last revised on 2017. Lymphocyte pct 9.9 % [facility] Comment: Interpretive Data Percent cell count reference ranges are not reported, since discordance with absolute values may lead to misinterpretation of CBC data. Current Interpretive Data was last revised on 2017. Monocyte pct 5.1 % [facility] Comment: Interpretive Data Percent cell count reference ranges are not reported, since discordance with absolute values may lead to misinterpretation of CBC data. Current Interpretive Data was last revised on 2017. Eosinophil pct 0.2 % [facility] Comment: Interpretive Data Percent cell count reference ranges are not reported, since discordance with absolute values may lead to misinterpretation of CBC data. Current Interpretive Data was last revised on 2017. Basophil pct 0.7 % [facility] Comment: Interpretive Data Percent cell count reference ranges are not reported, since discordance with absolute values may lead to misinterpretation of CBC data. Current Interpretive Data was last revised on 2017. Blood 08/23/2024 3:09 PM BUSINESS AND SERVICES INSTRUCTOR 08/23/2024 3:24 PM BUSINESS AND SERVICES INSTRUCTOR Minor Barnes MD LAB BLOOD ORDERABLES Final Result [facility] Department [place] [address] * (ABNORMAL) CBC with auto differential (08/23/2024 3:09 PM BUSINESS AND SERVICES INSTRUCTOR) WBC 13.2(H) 3.8 - 9.9 K/cumm Hgb 12.9 11.9 - 15.5 g/dL [facility] Hct 40.3 35.6 - 45.5 % [facility] Plt 309 150 - 400 K/cumm [facility] MPV 9.8 9.1 - 12.3 fL [facility] RBC 4.62 3.90 - 5.20 M/cumm [facility] MCV 87.2 81.3 - 96.4 fL [facility] MCH 27.9 27.1 - 33.3 pg [facility] MCHC 32.0(L) 32.3 - 35.7 g/dL [facility] RDW CV 14.6 11.1 - 14.9 % [facility] RDW SD 46.9 35.7 - 48.1 fL [facility] NRBC abs 0.00 0.00 - 0.01 K/cumm [facility] Blood 08/23/2024 3:0 9 PM BUSINESS AND SERVICES INSTRUCTOR 08/23/2024 3:24 PM BUSINESS AND SERVICES INSTRUCTOR Minor Barnes MD LAB BLOOD ORDERABLES Final Result Performing Organization Address City/[facility] Co de Phone Number [facility] [employer] [address] * aPTT (08/23/2024 3:09 PM BUSINESS AND SERVICES INSTRUCTOR) [facility] aPTT 29 28 - 38 sec Comment: Interpretive Data Heparin therapeutic range: 66.0 - 100.0 seconds. Range based on correlation with therapeutic heparin activity range of 0.3 - 0.7 Units/mL. Current interpretive data was last revised on 2023. Blood 08/23/2024 3:09 PM BUSINESS AND SERVICES INSTRUCTOR 08/23/2024 3:28 PM BUSINESS AND SERVICES INSTRUCTOR Minor Barnes MD LAB BLOOD ORDERABLES Final Result Performing Organization Address City/[facility]/ZIP Co de Phone Number [facility] [place] [address] * (ABNORMAL) Protime-INR (08/23/2024 3:09 PM BUSINESS AND SERVICES INSTRUCTOR) PT 13.3(H) 9.7 - 13.0 sec INR 1.23(H) 0.90 - 1.20 [facility] Comment: Interpretive data Oral anticoagulant therapeutic ranges: Venous thromboembolism prophylaxis or treatment: 2.0-3.0 CARDIOLOGY Standard range: 2.0-3.0 High-intensity range: 2.5-3.5 Refer to indication-specific guidelines for appropriate target ranges for prosthetic heart valve replacement. Current interpretive data was last revised on 2019. Blood 08/23/2024 3:09 PM BUSINESS AND SERVICES INSTRUCTOR 08/23/2024 3:28 PM BUSINESS AND SERVICES INSTRUCTOR Minor Barnes MD LAB BLOOD ORDERABLES Final Result Performing Organization Address City/[facility]/[place] [address] * Type and screen (08/23/2024 3:09 PM BUSINESS AND SERVICES INSTRUCTOR) ABO Rh O Positive Markos, indirect Negative [facility] Blood 08/23/2024 3:09 PM BUSINESS AND SERVICES INSTRUCTOR 08/23/2024 3:20 PM BUSINESS AND SERVICES INSTRUCTOR Narrative [facility] - 08/23/2024 4:07 PM BUSINESS AND SERVICES INSTRUCTOR Has the patient had Daratumumab or Isatuximab in the past 6 months?->Unknown Minor Barnes MD LAB BLOOD BANK TEST [place] [address] * Neuro CT Outside Reference (08/23/2024 2:36 PM BUSINESS AND SERVICES INSTRUCTOR) Impressions [facility] - 08/23/2024 2:36 PM BUSINESS AND SERVICES INSTRUCTOR These images are for Reference purposes only and have not been reviewed by [facility] Radiology. There will be no report generated by a [facility] Radiologist. Narrative [facility] - 08/23/2024 2:36 PM BUSINESS AND SERVICES INSTRUCTOR EXAMINATION: Images For Reference Purposes Only Felice Goyal MD IMG CT PROCEDURES Anna l Result Performing Organization Address [facility] de Phone Number [facility] * XR Outside Reference (08/23/2024 2:33 PM BUSINESS AND SERVICES INSTRUCTOR) Impressions [facility] - 08/23/2024 2:33 PM BUSINESS AND SERVICES INSTRUCTOR These images are for Reference purposes only and have not been reviewed by [facility]. There will be no report generated by a [facility] Radiologist. Narrative [facility] - 08/23/2024 2:33 PM BUSINESS AND SERVICES INSTRUCTOR EXAMINATION: Images For Reference Purposes Only Felice Goyal MD IMG XR PROCEDURES Anna l Result Performing Organization Address [facility] de Phone Number [facility] * XR Outside Reference (08/23/2024 2:30 PM BUSINESS AND SERVICES INSTRUCTOR) Impressions [facility] - 08/23/2024 2:30 PM BUSINESS AND SERVICES INSTRUCTOR These images are for Reference purposes only and have not been reviewed by [facility]. There will be no report generated by a [facility] Radiologist. Narrative [facility] - 08/23/2024 2:30 PM BUSINESS AND SERVICES INSTRUCTOR EXAMINATION: Images For Reference Purposes Only Felice Goyal MD IMG XR PROCEDURES Anna l Result Performing Organization Address [facility] de Phone Number [facility] * POCT ketone, blood (08/23/2024 2:05 PM BUSINESS AND SERVICES INSTRUCTOR) Ketones, Blood, POC 0.2 0.0 - 0.5 mmol/L Blood 08/23/2024 2:05 PM BUSINESS AND SERVICES INSTRUCTOR 08/23/2024 2:05 PM BUSINESS AND SERVICES INSTRUCTOR Martin Pinto MD LAB POCT ORDERABLES - DE VICE Final Result Performing Organization Address City/[facility] Co de Phone Number [facility] Department [place] [address] * (ABNORMAL) POCT glucose (08/23/2024 2:04 PM BUSINESS AND SERVICES INSTRUCTOR) Glucose, POC 217(H) 70 - 199 mg/dL Comment:Glu2: RN/MD Notified Glucose comment 1 Glu2: RN/MD Notified [facility] Blood 08/23/2024 2:04 PM BUSINESS AND SERVICES INSTRUCTOR 08/23/2024 2:04 PM BUSINESS AND SERVICES INSTRUCTOR Martin Pinto MD LAB POCT ORDERABLES - DE VICE Final Result Performing Organization Address [facility] Phone Number [facility] [place] [address] * Dexa Axial Skeleton Bone Density 1 or 2 Site (06/02/2021 3:15 PM CDT) Anatomical Region Laterality Modality Body N/A Mammography 06/05/2021 7:05 AM CDT Narrative 06/05/2021 7:06 AM CDT EXAM DESCRIPTION: DEXA AXIAL SKELETON BONE DENSITY 1 OR MORE SITES REASON FOR STUDY: 80 y/o year old F with given history of screening. Mangle Feeder/Model: Anki A (S/N [id number]) CLINICAL INFORMATION: Current height: 65 inches Maximum [...] Toi Jackson M.D. MF: JOSE Report ID: [id number] Reading Location: [id number] Procedure Note Toi Jackson MD - 06/05/2021 EXAM DESCRIPTION: DEXA AXIAL SKELETON BONE DENSITY 1 OR MORE SITES REASON FOR STUDY: 80 y/o year old F with given history ofscreening. Mangle Feeder/Model: Anki A (S/N [id number]) CLINICAL INFORMATION: Current height: 65 inches Maximum [...] Toi Jackson M.D. MF: JOSE Report ID: [id number] Reading Location: [id number] [facility] IMG DXA PROCEDURES Final Re [...] and children were not included. (Diabetes Care 31:[id number], 2008). The eAG is not equivalent to a fasting glucose. Blood 05/22/2021 9:55 AM CDT 05/22/2021 5:19 PM CDT [facility] LAB BLOOD ORDERABLES Final Result [facility] [address] [facility] Department [place] [address] * (ABNORMAL) Diabetic Eye Exam (12/10/2020) us Historical Provider HEALTH MAINTENANCE Final Result from Last 3 Months or Most Recently Relevant to Health Maintenance Insurance [employer] RFID MEDICARE MEDICARE FOR LIFE MEDICARE FOR LIFE Advance Directives For more information, please contact: [phone] * Full Code (Latest Code Status on File) Date Activated Date Inactivated Comments 08/23/2024 10:14 PM 08/28/2024 12:08 AM * Full Code Date Activated Date Inactivated Comments 03/07/2020 10:09 AM 03/07/2020 4:03 PM Care Teams Security Assurance Analyst Relationship Specialty Start Date End Date Tashi Christianson MD [address] [facility] [address] [place] [address] PCP - General Family Medicine 05/09/22 [place] [address] [address] Nurse Practitioner Nurse Practitioner 04/30/24
--- OUTSIDE RECORDS SUMMARY | 2024-09-23 12:20 | XMS_ITS | Clinical Summary ---
Author Organization Unknown Care Team Providers Care Equalizing Saw Operator Name Role Phone KOFI MOFFETT, MCKENZIE Unavailable Unavailable MICHEAL RN, DANE Unavailable Unavailaugust BERNSTEIN MAILMASTER, TALHA Unavailable Unavailable MELYSSA PT, CARSON Unavailable Unavailable HANNA FIRE ALARM INSTALLER, AUSTEN Unavailable Unavailaugust GRAVES OT, KELLY Unavailable Unavailable TANYA BOCANEGRA, RICKI Unavailable Unavailable Payers Payer Name Policy Type Policy Number Effective Date Expira tion Date MEDICARE.[email or web address] [id number] Problems Condition Name Condition Details Condition Category Status Onset Date Resolution Date Last Treatment Date Treating Clinician Comments PERIPROSTH FRACTURE AROUND INTERNAL PROSTH R HIP JT, SUBS Active 203 00:00: 00 PRESSURE ULCER OF SACR[place] REGION, UNSTAGEABLE Active 2- 00:00: 00 OTHER CHRONIC PAIN Active 08-12 00:00: 00 RADICULOPATH Y, CERVICAL REGION Active 08-12 00:00: 00 HYPERTENSIVE CHRONIC KIDNEY DISEASE W STG 1-4/UNSP CHR KDNY Active 08-12 00:00: 00 TYPE 2 DIABETES MELLITUS W DIABETIC CHRONIC KIDNEY DISEASE Active 08-12 00:00: 00 CHRONIC KIDNEY DISEASE, STAGE 3 UNSPECIFIED Active 08-12 00:00: 00 PAROXYSMAL ATRIAL FIBRILLATION Active 08-12 00:00: 00 ATHSCL HEART DISEASE OF [place] CORONARY ARTERY W/O ANG PCTRS Active 08-12 00:00: 00 UNSPECIFIED OSTEOARTHRIT IS, UNSPECIFIED SITE Active 08-12 00:00: 00 ACUTE POSTHEMORRHA GIC ANEMIA Active 08-12 00:00: 00 ACUTE KIDNEY FAILURE, UNSPECIFIED Active 08-12 00:00: 00 ANXIETY DISORDER, UNSPECIFIED Active 08-12 00:00: 00 DEPRESSION, UNSPECIFIED Active 08-12 00:00: 00 ULCER OF ESOPHAGUS WITHOUT BLEEDING Active 08-12 00:00: 00 Irritable bowel syndrome, unspecified Active 08-12 00:00: 00 HYPOTHYROIDI SM, UNSPECIFIED Active 08-12 00:00: 00 UNSPECIFIED MACULAR DEGENERATION Active 08-12 00:00: 00 GASTRO-ESOPH AGEAL REFLUX DISEASE WITHOUT ESOPHAGITIS Active 08-12 00:00: 00 HYPERLIPIDEM IA, UNSPECIFIED Active 08-12 00:00: 00 MENIERE'S DISEASE, UNSPECIFIED EAR Active 08-12 00:00: 00 DRUG INDUCED CONSTIPATION Active 08-12 00:00: 00 OPIOID USE, UNSPECIFIED, UNCOMPLICATE D Active 08-12 00:00: 00 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 Active 08-12 00:00: 00 PERSONAL HISTORY OF NICOTINE DEPENDENCE Active 08-12 00:00: 00 PRSNL HX OF TIA (TIA), AND CEREB INFRC W/O RESID DEFICITS Active 08-12 00:00: 00 PERSONAL HISTORY OF OTHER MALIGNANT NEOPLASM OF SKIN Active 08-12 00:00: 00 HISTORY OF FALLING Active 08-12 00:00: 00 PERSONAL HISTORY OF OTHER VENOUS THROMBOSIS AND EMBOLISM Active 08-12 00:00: 00 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 Active 08-12 00:00: 00 Allergies, Adverse Reactions, Alerts Allergy Name Allergy Type Status Severity Reaction(s) Onset Date Inactive Date Treating Clinician Comments DIMENHYDRINA TE Propensity to adverse reactions Active 09-14 11:42: 41 IODINE ALL Propensity to adverse reactions Active 09-14 11:42: 59 Vital Signs Vital Name Observation Time Observation Value Commen ts Temperature 2024-09-23 10:51:00.000 97.9 [degF] Temperature 2024-09-22 10:06:00.000 97.3 [degF] Temperature 2024-09-18 14:42:00.000 97.9 [degF] Temperature 2024-09-17 14:24:00.000 96.6 [degF] Temperature 2024-09-17 09:04:00.000 97.6 [degF] Temperature 2024-09-14 12:23:00.000 97 [degF] BMI (%) 2024-09-14 11:50:08.000 23 kg/m2 Height 2024-09-14 11:49:37.000 65 [in_us] Pulse 2024-09-23 10:51:00.000 76 /min Pulse 2024-09-22 10:06:00.000 85 /min Pulse 2024-09-18 14:42:00.000 74 /min Pulse 2024-09-17 14:24:00.000 74 /min Pulse 2024-09-17 09:04:00.000 62 /min Pulse 2024-09-14 12:23:00.000 71 /min O2 Saturation (%) 2024-09-23 10:52:00.000 96 % O2 Saturation (%) 2024-09-22 10:06:00.000 98 % O2 Saturation (%) 2024-09-18 14:42:00.000 97 % O2 Saturation (%) 2024-09-17 14:24:00.000 94 % O2 Saturation (%) 2024-09-17 09:04:00.000 96 % O2 Saturation (%) 2024-09-14 12:23:00.000 98 % Respirations 2024-09-23 10:51:00.000 18 /min Respirations 2024-09-22 10:06:00.000 18 /min Respirations 2024-09-18 14:42:00.000 18 /min Respirations 2024-09-17 14:24:00.000 18 /min Respirations 2024-09-17 09:04:00.000 18 /min Respirations 2024-09-14 12:23:00.000 18 /min Weight (lbs) 2024-09-14 11:50:08.000 144 [lb_av] Systolic Blood Pressure 2024-09-23 10:51:00.000 80 mm[ Hg] Systolic Blood Pressure 2024-09-22 10:06:00.000 100 mm [Hg] Systolic Blood Pressure 2024-09-18 14:42:00.000 110 mm [Hg] Systolic Blood Pressure 2024-09-17 14:24:00.000 102 mm [Hg] Systolic Blood Pressure 2024-09-17 09:04:00.000 130 mm [Hg] Systolic Blood Pressure 2024-09-14 12:23:00.000 124 mm [Hg] Diastolic Blood Pressure 2024-09-23 10:51:00.000 40 mm [Hg] Diastolic Blood Pressure 2024-09-22 10:06:00.000 70 mm [Hg] Diastolic Blood Pressure 2024-09-18 14:42:00.000 60 mm [Hg] Diastolic Blood Pressure 2024-09-17 14:24:00.000 62 mm [Hg] Diastolic Blood Pressure 2024-09-17 09:04:00.000 80 mm [Hg] Diastolic Blood Pressure 2024-09-14 12:23:00.000 64 mm [Hg] Plan of Treatment Planned Activity Planned Date Details Comments Future Scheduled Test RN TO OBSE RVE, ASSESS, EVALUATE, AND DEVELOP AN INDIVIDUALIZED PLAN OF CARE. AGENCY MAY ACCEPT ORDERS FROM CONSULTING PHYSICIANS. BARB DONAHUE PAIN MANAGEMENT RN TO OBSERVE AND ASSESS, MAILMASTER/POWDER CUTTING OPERATOR TO OBSERVE FOR RISK FOR FALLS AND INSTRUCT IN FALL PREVENTION, HOME SAFETY, MEDICATION MANAGEMENT, INFECTION PREVENTION, AND NUTRITION MANAGEMENT. RN/MAILMASTER/POWDER CUTTING OPERATOR NURSE MAY PERFORM O2 SATURATION LEVEL ON ADMISSION AND PRN FOR EVERY VISIT FOR RN TO ASSESS/MAILMASTER TO OBSERVE PATIENT, WITH NOTIFICATION TO THE PHYSICIAN IF SATURATION IS 90% IN THE ABSENCE OF MORE SPECIFIC PARAMETERS FROM THE PHYSICIAN. AGENCY MAY PERFORM A RESUMPTION OF CARE VISIT FOLLOWING ANY HOSPITAL ADMISSION. RN/MAILMASTER/POWDER CUTTING OPERATOR TO MONITOR CO-MORBID CONDITIONS LISTED ON THE PLAN OF CARE AND ANY NEW CONDITIONS THAT PRESENT THEMSELVES DURING THIS EPISODE TO IDENTIFY CHANGES AND INTERVENE TO MINIMIZE COMPLICATIONS. [code = RN TO OBSERVE, ASSESS, EVALUATE, AND DEVELOP AN INDIVIDUALIZED PLAN OF CARE. AGENCY MAY ACCEPT ORDERS FROM CONSULTING PHYSICIANS. BARB DONAHUE PAIN MANAGEMENT RN TO OBSERVE AND ASSESS, MAILMASTER/POWDER CUTTING OPERATOR TO OBSERVE FOR RISK FOR FALLS AND INSTRUCT IN FALL PREVENTION, HOME SAFETY, MEDICATION MANAGEMENT, INFECTION PREVENTION, AND NUTRITION MANAGEMENT. RN/MAILMASTER/POWDER CUTTING OPERATOR NURSE MAY PERFORM O2 SATURATION LEVEL ON ADMISSION AND PRN FOR EVERY VISIT FOR RN TO ASSESS/MAILMASTER TO OBSERVE PATIENT, WITH NOTIFICATION TO THE PHYSICIAN IF SATURATION IS 90% IN THE ABSENCE OF MORE SPECIFIC PARAMETERS FROM THE PHYSICIAN. AGENCY MAY PERFORM A RESUMPTION OF CARE VISIT FOLLOWING ANY HOSPITAL ADMISSION. RN/MAILMASTER/POWDER CUTTING OPERATOR TO MONITOR CO-MORBID CONDITIONS LISTED ON THE PLAN OF CARE AND ANY NEW CONDITIONS THAT PRESENT THEMSELVES DURING THIS EPISODE TO IDENTIFY CHANGES AND INTERVENE TO MINIMIZE COMPLICATIONS.] Future Scheduled Test MEDICATION MANAGEMENT; RN/MAILMASTER/POWDER CUTTING OPERATOR TO REVIEW MEDICATIONS FOR INTERACTIONS, EFFECTIVENESS OF DRUG THERAPY, AND SIGNS/SYMPTOMS OF ADVERSE REACTIONS. MAY INSTRUCT AND REINFORCE MEDICATION TEACHING RELATED TO THE USE OF MEDICATIONS, DOSAGE, FREQUENCY, PURPOSE, SIDE EFFECTS, AND TO REPORT COMPLICATIONS. [code = MEDICATION MANAGEMENT; RN/MAILMASTER/POWDER CUTTING OPERATOR TO REVIEW MEDICATIONS FOR INTERACTIONS, EFFECTIVENESS OF DRUG THERAPY, AND SIGNS/SYMPTOMS OF ADVERSE REACTIONS. MAY INSTRUCT AND REINFORCE MEDICATION TEACHING RELATED TO THE USE OF MEDICATIONS, DOSAGE, FREQUENCY, PURPOSE, SIDE EFFECTS, AND TO REPORT COMPLICATIONS.] Future Scheduled Test ANTICOAGUL ATION MANAGEMENT; RN TO ASSESS AND TEACH, MAILMASTER/POWDER CUTTING OPERATOR TO OBSERVE/TEACH/MONITOR EFFECTIVENESS OF ANTICOAGULATION THERAPY. RN/MAILMASTER/POWDER CUTTING OPERATOR TO INSTRUCT ON SIGNS AND SYMPTOMS OF BLEEDING/ADVERSE REACTIONS TO REPORT TO PHYSICIAN. PATIENT PRESCRIBED ELIQUIS [code = ANTICOAGULATION MANAGEMENT; RN TO ASSESS AND TEACH, MAILMASTER/POWDER CUTTING OPERATOR TO OBSERVE/TEACH/MONITOR EFFECTIVENESS OF ANTICOAGULATION THERAPY. RN/MAILMASTER/POWDER CUTTING OPERATOR TO INSTRUCT ON SIGNS AND SYMPTOMS OF BLEEDING/ADVERSE REACTIONS TO REPORT TO PHYSICIAN. PATIENT PRESCRIBED ELIQUIS ] Future Scheduled Test RISK FOR H OSPITALIZATION; RN TO ASSESS/TEACH, POWDER CUTTING OPERATOR/MAILMASTER TO OBSERVE/TEACH PATIENT/CAREGIVER ON RISK FOR HOSPITALIZATION/EMERGENCY ROOM VISITS, TEACH SIGNS AND SYMPTOMS THAT PUT PATIENT AT RISK, WHEN TO NOTIFY NURSE/PHYSICIAN OF COMPLICATIONS/DECLINE, AND WHEN TO CALL 911. [code = RISK FOR HOSPITALIZATION; RN TO ASSESS/TEACH, POWDER CUTTING OPERATOR/MAILMASTER TO OBSERVE/TEACH PATIENT/CAREGIVER ON RISK FOR HOSPITALIZATION/EMERGENCY ROOM VISITS, TEACH SIGNS AND SYMPTOMS THAT PUT PATIENT AT RISK, WHEN TO NOTIFY NURSE/PHYSICIAN OF COMPLICATIONS/DECLINE, AND WHEN TO CALL 911.] Future Scheduled Test CARDIOVASC ULAR SYSTEM; RN TO ASSESS/TEACH, MAILMASTER/POWDER CUTTING OPERATOR TO OBSERVE/TEACH RELATED TO ALTERED CARDIOVASCULAR STATUS TO MINIMIZE COMPLICATIONS AND REDUCE HOSPITALIZATION. [code = CARDIOVASCULAR SYSTEM; RN TO ASSESS/TEACH, MAILMASTER/POWDER CUTTING OPERATOR TO OBSERVE/TEACH RELATED TO ALTERED CARDIOVASCULAR STATUS TO MINIMIZE COMPLICATIONS AND REDUCE HOSPITALIZATION.] Future Scheduled Test HYPERTENSI ON MANAGEMENT; RN TO ASSESS AND TEACH, MAILMASTER/POWDER CUTTING OPERATOR TO OBSERVE AND TEACH WARNING SIGNS AND SYMPTOMS TO AVOID HOSPITALIZATION. [code = HYPERTENSION MANAGEMENT; RN TO ASSESS AND TEACH, MAILMASTER/POWDER CUTTING OPERATOR TO OBSERVE AND TEACH WARNING SIGNS AND SYMPTOMS TO AVOID HOSPITALIZATION.] Future Scheduled Test ARRHYTHMIA MANAGEMENT; RN TO ASSESS AND TEACH, MAILMASTER/POWDER CUTTING OPERATOR TO OBSERVE AND TEACH WARNING SIGNS AND SYMPTOMS TO AVOID HOSPITALIZATION. [code = ARRHYTHMIA MANAGEMENT; RN TO ASSESS AND TEACH, MAILMASTER/POWDER CUTTING OPERATOR TO OBSERVE AND TEACH WARNING SIGNS AND SYMPTOMS TO AVOID HOSPITALIZATION.] Future Scheduled Test RN/MAILMASTER/POWDER CUTTING OPERATOR TO PERFORM/TEACH INCISION CARE TO RIGHT FEMUR AREA: IRRIGATE/CLEANSE WITH WOUND CLEANSER, MAY APPLY SKIN BARRIER TO PERIWOUND PRN TO PREVENT MACERATION AND PROTECT PERIWOUND COVER WITH ISLAND DRESSING CHANGE DRESSING EVERY ONCE A DAY AND PRN FOR SOILED DRESSINGS [code = RN/MAILMASTER/POWDER CUTTING OPERATOR TO PERFORM/TEACH INCISION CARE TO RIGHT FEMUR AREA: IRRIGATE/CLEANSE WITH WOUND CLEANSER, MAY APPLY SKIN BARRIER TO PERIWOUND PRN TO PREVENT MACERATION AND PROTECT PERIWOUND COVER WITH ISLAND DRESSING CHANGE DRESSING EVERY ONCE A DAY AND PRN FOR SOILED DRESSINGS ] Future Scheduled Test RN/MAILMASTER/POWDER CUTTING OPERATOR TO PERFORM/TEACH PATIENT/CAREGIVER WOUND CARE PRESSURE INJURY TO COCCXY IRRIGATE/CLEANSE WITH WOUND CLEANSER APPLY A SMALL AMOUNT OF MEDIHONEY TO 2X2 GAUZE MAY APPLY SKIN BARRIER TO PERIWOUND PRN TO PREVENT MACERATION AND PROTECT PERIWOUND COVER WITH ADHERING FOAM DRESSING CHANGE DRESSING EVERY DAILY AND PRN FOR SOILED DRESSINGS [code = RN/MAILMASTER/POWDER CUTTING OPERATOR TO PERFORM/TEACH PATIENT/CAREGIVER WOUND CARE PRESSURE INJURY TO COCCXY IRRIGATE/CLEANSE WITH WOUND CLEANSER APPLY A SMALL AMOUNT OF MEDIHONEY TO 2X2 GAUZE MAY APPLY SKIN BARRIER TO PERIWOUND PRN TO PREVENT MACERATION AND PROTECT PERIWOUND COVER WITH ADHERING FOAM DRESSING CHANGE DRESSING EVERY DAILY AND PRN FOR SOILED DRESSINGS ] Future Scheduled Test PAIN MANAG EMENT; RN TO ASSESS AND TEACH, POWDER CUTTING OPERATOR/MAILMASTER TO OBSERVE AND TEACH AND PROVIDE EDUCATION ON PAIN MANAGEMENT TECHNIQUES. [code = PAIN MANAGEMENT; RN TO ASSESS AND TEACH, POWDER CUTTING OPERATOR/MAILMASTER TO OBSERVE AND TEACH AND PROVIDE EDUCATION ON PAIN MANAGEMENT TECHNIQUES.] Future Scheduled Test ANEMIA MAN AGEMENT; RN TO ASSESS AND TEACH, POWDER CUTTING OPERATOR/MAILMASTER TO OBSERVE AND TEACH AND PROVIDE EDUCATION ON ANEMIA. [code = ANEMIA MANAGEMENT; RN TO ASSESS AND TEACH, POWDER CUTTING OPERATOR/MAILMASTER TO OBSERVE AND TEACH AND PROVIDE EDUCATION ON ANEMIA.] Future Scheduled Test FALL REDUC TION MANAGEMENT; RN TO ASSESS AND OBSERVE, MAILMASTER/POWDER CUTTING OPERATOR TO OBSERVE FALL RISK FACTORS AND EDUCATE PATIENT/CAREGIVER ON STRATEGIES TO MINIMIZE THE RISK OF FALLING. [code = FALL REDUCTION MANAGEMENT; RN TO ASSESS AND OBSERVE, MAILMASTER/POWDER CUTTING OPERATOR TO OBSERVE FALL RISK FACTORS AND EDUCATE PATIENT/CAREGIVER ON STRATEGIES TO MINIMIZE THE RISK OF FALLING.] Future Scheduled Test PHYSICAL T HERAPIST TO EVALUATE FOR EVALUATION AND TREATMENT [code = PHYSICAL THERAPIST TO EVALUATE FOR EVALUATION AND TREATMENT ] Future Scheduled Test OCCUPATION AL THERAPIST TO EVALUATE FOR EVALUATION AND TREATMENT [code = OCCUPATIONAL THERAPIST TO EVALUATE FOR EVALUATION AND TREATMENT ] Future Scheduled Test PRN VISITS ; NUMBER OF RN/MAILMASTER/POWDER CUTTING OPERATOR VISITS: 2 RN/MAILMASTER/POWDER CUTTING OPERATOR TO PERFORM: WOUND MANAGEMENT FOR THE FOLLOWING REASONS: COMPLICATIONS [code = PRN VISITS; NUMBER OF RN/MAILMASTER/POWDER CUTTING OPERATOR VISITS: 2 RN/MAILMASTER/POWDER CUTTING OPERATOR TO PERFORM: WOUND MANAGEMENT FOR THE FOLLOWING REASONS: COMPLICATIONS ] Future Scheduled Test BLOOD CLOT MANAGEMENT; RN TO ASSESS AND TEACH/ MAILMASTER /POWDER CUTTING OPERATOR TO OBSERVE AND TEACH AND PROVIDE EDUCATION ON BLOOD CLOT MANAGEMENT. [code = BLOOD CLOT MANAGEMENT; RN TO ASSESS AND TEACH/ MAILMASTER /POWDER CUTTING OPERATOR TO OBSERVE AND TEACH AND PROVIDE EDUCATION ON BLOOD CLOT MANAGEMENT.] Future Scheduled Test DIABETES M ANAGEMENT; RN TO ASSESS AND TEACH, POWDER CUTTING OPERATOR/MAILMASTER TO OBSERVE AND TEACH INSTRUCTIONS OF DIABETIC CARE TO INCLUDE: DIET DIABETIC SKIN CARE, SIGNS AND SYMPTOMS OF HYPO/HYPERGLYCEMIA, PROPER ADMINISTRATION OF DIABETIC MEDICATION. RN/POWDER CUTTING OPERATOR/MAILMASTER TO INSTRUCT ON DIABETIC FOOT CARE AND MONITOR FOR SKIN LESIONS ON LOWER EXTREMITIES. BLOOD GLUCOSE TESTING DAILY RN TO ASSESS AND TEACH, POWDER CUTTING OPERATOR/MAILMASTER TO OBSERVE AND TEACH PATIENT/CAREGIVER ABILITY TO PERFORM AND RECORD BLOOD GLUCOSE TESTING ORDERED AND TO REPORT ABNORMAL FINDINGS TO PHYSICIAN. RN/POWDER CUTTING OPERATOR/MAILMASTER MAY PERFORM BLOOD GLUCOSE TEST NEEDED. RN/POWDER CUTTING OPERATOR/MAILMASTER TO REPORT TO PHYSICIAN BLOOD GLUCOSE READINGS GREATER THAN 300 OR LESS THAN 70 RN/POWDER CUTTING OPERATOR/MAILMASTER TO INSTRUCT PATIENT ON IMPORTANCE OF HGBA1C MONITORING, KIDNEY FUNCTION TEST, EYE AND FOOT EXAMS. [code = DIABETES MANAGEMENT; RN TO ASSESS AND TEACH, POWDER CUTTING OPERATOR/MAILMASTER TO OBSERVE AND TEACH INSTRUCTIONS OF DIABETIC CARE TO INCLUDE: DIET DIABETIC SKIN CARE, SIGNS AND SYMPTOMS OF HYPO/HYPERGLYCEMIA, PROPER ADMINISTRATION OF DIABETIC MEDICATION. RN/POWDER CUTTING OPERATOR/MAILMASTER TO INSTRUCT ON DIABETIC FOOT CARE AND MONITOR FOR SKIN LESIONS ON LOWER EXTREMITIES. BLOOD GLUCOSE TESTING DAILY RN TO ASSESS AND TEACH, POWDER CUTTING OPERATOR/MAILMASTER TO OBSERVE AND TEACH PATIENT/CAREGIVER ABILITY TO PERFORM AND RECORD BLOOD GLUCOSE TESTING ORDERED AND TO REPORT ABNORMAL FINDINGS TO PHYSICIAN. RN/POWDER CUTTING OPERATOR/MAILMASTER MAY PERFORM BLOOD GLUCOSE TEST NEEDED. RN/POWDER CUTTING OPERATOR/MAILMASTER TO REPORT TO PHYSICIAN BLOOD GLUCOSE READINGS GREATER THAN 300 OR LESS THAN 70 RN/POWDER CUTTING OPERATOR/MAILMASTER TO INSTRUCT PATIENT ON IMPORTANCE OF HGBA1C MONITORING, KIDNEY FUNCTION TEST, EYE AND FOOT EXAMS.] Future Scheduled Test GENITOURIN JORDAN MANAGEMENT; RN TO ASSESS AND TEACH, MAILMASTER/POWDER CUTTING OPERATOR TO OBSERVE AND TEACH RELATED TO ALTERED GENITOURINARY STATUS TO MINIMIZE COMPLICATIONS AND REDUCE HOSPITALIZATION. [code = GENITOURINARY MANAGEMENT; RN TO ASSESS AND TEACH, MAILMASTER/POWDER CUTTING OPERATOR TO OBSERVE AND TEACH RELATED TO ALTERED GENITOURINARY STATUS TO MINIMIZE COMPLICATIONS AND REDUCE HOSPITALIZATION.] Future Scheduled Test UROSTOMY M ANAGEMENT; RN/POWDER CUTTING OPERATOR/MAILMASTER TO INSTRUCT PATIENT/CAREGIVER ON UROSTOMY MANAGEMENT INCLUDING APPLIANCE TYPE, USAGE, AND STOMA CARE EACH VISIT NEEDED. [code = UROSTOMY MANAGEMENT; RN/POWDER CUTTING OPERATOR/MAILMASTER TO INSTRUCT PATIENT/CAREGIVER ON UROSTOMY MANAGEMENT INCLUDING APPLIANCE TYPE, USAGE, AND STOMA CARE EACH VISIT NEEDED.] Future Scheduled Test URINARY MO LECULAR TESTING PROTOCOL UP TO 2 PRN RN/MAILMASTER/POWDER CUTTING OPERATOR VISITS MAY BE PERFORMED FOR S/S OF UTI. RN TO ASSESS, MAILMASTER/POWDER CUTTING OPERATOR TO OBSERVE INITIATION OF UTI PROTOCOL. RN/POWDER CUTTING OPERATOR/MAILMASTER TO INSTRUCT PATIENT AND/OR CAREGIVER ON S/S OF UTI TO REPORT TO RN/POWDER CUTTING OPERATOR/MAILMASTER IF NEW OR WORSENING SYMPTOMS. DRINK PLENTY OF WATER THROUGHOUT THE DAY TO MAINTAIN HYDRATION (UNLESS CONTRAINDICATED.) URINATE WHEN THE URGE IS FELT, DO NOT WAIT. WASH GENITALS DAILY. WIPE FROM FRONT TO BACK AFTER HAVING A BOWEL MOVEMENT. RN/POWDER CUTTING OPERATOR/MAILMASTER TO OBTAIN MOLECULAR URINE TESTING BY OPTION 1 OR OPTION 2 (OPTION 1) RN/POWDER CUTTING OPERATOR/MAILMASTER TO OBTAIN U/A WITH REFLEX TO UTI PANEL (MOLECULAR) VIA CLEAN CATCH URINE AND IF UNABLE TO OBTAIN MAY PERFORM AN IN AND OUT CATH. IF PATIENT HAS INDWELLING CATHETER MAY OBTAIN FROM SAMPLING PORT. (OPTION 2) RN/POWDER CUTTING OPERATOR/MAILMASTER TO OBTAIN UTI PANEL (MOLECULAR) VIA SWAB COLLECTION METHOD FROM ADULT BRIEF/DIAPER OR PAD IF PATIENT IS INCONTINENT. NOTIFY PROVIDER OF RESULTS AND OBTAIN FURTHER ORDERS. [code = URINARY MOLECULAR TESTING PROTOCOL UP TO 2 PRN RN/MAILMASTER/POWDER CUTTING OPERATOR VISITS MAY BE PERFORMED FOR S/S OF UTI. RN TO ASSESS, MAILMASTER/POWDER CUTTING OPERATOR TO OBSERVE INITIATION OF UTI PROTOCOL. RN/POWDER CUTTING OPERATOR/MAILMASTER TO INSTRUCT PATIENT AND/OR CAREGIVER ON S/S OF UTI TO REPORT TO RN/POWDER CUTTING OPERATOR/MAILMASTER IF NEW OR WORSENING SYMPTOMS. DRINK PLENTY OF WATER THROUGHOUT THE DAY TO MAINTAIN HYDRATION (UNLESS CONTRAINDICATED.) URINATE WHEN THE URGE IS FELT, DO NOT WAIT. WASH GENITALS DAILY. WIPE FROM FRONT TO BACK AFTER HAVING A BOWEL MOVEMENT. RN/POWDER CUTTING OPERATOR/MAILMASTER TO OBTAIN MOLECULAR URINE TESTING BY OPTION 1 OR OPTION 2 (OPTION 1) RN/POWDER CUTTING OPERATOR/MAILMASTER TO OBTAIN U/A WITH REFLEX TO UTI PANEL (MOLECULAR) VIA CLEAN CATCH URINE AND IF UNABLE TO OBTAIN MAY PERFORM AN IN AND OUT CATH. IF PATIENT HAS INDWELLING CATHETER MAY OBTAIN FROM SAMPLING PORT. (OPTION 2) RN/POWDER CUTTING OPERATOR/MAILMASTER TO OBTAIN UTI PANEL (MOLECULAR) VIA SWAB COLLECTION METHOD FROM ADULT BRIEF/DIAPER OR PAD IF PATIENT IS INCONTINENT. NOTIFY PROVIDER OF RESULTS AND OBTAIN FURTHER ORDERS.] Future Scheduled Test URINARY TR ACT INFECTION MANAGEMENT; RN/POWDER CUTTING OPERATOR/MAILMASTER TO PROVIDE SKILLED TEACHING AND SELF- CARE MANAGEMENT RELATED TO UTI TO MINIMIZE COMPLICATIONS AND REDUCE THE RISK OF HOSPITALIZATION. [code = URINARY TRACT INFECTION MANAGEMENT; RN/POWDER CUTTING OPERATOR/MAILMASTER TO PROVIDE SKILLED TEACHING AND SELF- CARE MANAGEMENT RELATED TO UTI TO MINIMIZE COMPLICATIONS AND REDUCE THE RISK OF HOSPITALIZATION.] Future Scheduled Test CANCER MAN AGEMENT; RN TO ASSESS AND TEACH, POWDER CUTTING OPERATOR/MAILMASTER TO OBSERVE AND TEACH AND PROVIDE EDUCATION ON CANCER. [code = CANCER MANAGEMENT; RN TO ASSESS AND TEACH, POWDER CUTTING OPERATOR/MAILMASTER TO OBSERVE AND TEACH AND PROVIDE EDUCATION ON CANCER.] Future Scheduled Test AGENCY MAY PERFORM A RESUMPTION OF CARE VISIT FOLLOWING ANY HOSPITAL ADMISSION. PT TO EVALUATE, OBSERVE / ASSESS, AND MONITOR, FIRE ALARM INSTALLER TO OBSERVE AND MONITOR, PROVIDE SKILLED THERAPEUTIC INTERVENTION, ACTIVITY, EDUCATION, AND TRAINING TO ADDRESS; PT/FIRE ALARM INSTALLER TO PROVIDE GAIT TRAINING FOR IMPROVED MOBILITY AND /OR TO NORMALIZE GAIT PATTERN NEUROMUSCULAR RE-EDUCATION / BALANCE / POSTURAL CONTROL (PT) THERAPEUTIC EXERCISES AND ESTABLISHING A HOME EXERCISE PROGRAM (PT/FIRE ALARM INSTALLER) SIT TO/FROM STAND TRANSFERS (PT/FIRE ALARM INSTALLER) PT / FIRE ALARM INSTALLER TO OBSERVE FOR EARLY SIGNS AND SYMPTOMS OF DEPRESSION OR DEPRESSION GETTING WORSE AND TO EDUCATE ON HOW TO FIND HELP. PT / FIRE ALARM INSTALLER MAY EDUCATE ON PAIN MANAGEMENT CLINICALLY INDICATED, INCLUDING NON-PHARMACOLOGICAL PAIN REDUCTION TECHNIQUES AND USE OF CRYOTHERAPY OR HEAT UP TO 20 MIN AT A TIME FOR PAIN MANAGEMENT 6-8 TIMES PER DAY TO RIGHT HIP PT / FIRE ALARM INSTALLER TO INSTRUCT PATIENT/CAREGIVER ON RISK FOR HOSPITALIZATION/EMERGENCY ROOM VISITS, TEACH SIGNS AND SYMPTOMS THAT PUT PATIENT AT RISK, WHEN TO NOTIFY NURSE/PHYSICIAN OF COMPLICATIONS/DECLINE, AND WHEN TO CALL 911. PT/FIRE ALARM INSTALLER TO EDUCATE ON FEMUR FRACTURE /ORIF SELF-MANAGEMENT. PT / FIRE ALARM INSTALLER TO EDUCATE ON HYPERTENSION SELF-MANAGEMENT PT TO ASSESS / FIRE ALARM INSTALLER TO MONITOR CARDIO/RESPIRATORY SYSTEM; AND NOTIFY THE PHYSICIAN AND/OR THE RN CLINICAL HUMAN RESOURCES OPERATIONS COORDINATOR FOR PHYSICIAN NOTIFICATION FOR EARLY SIGNS AND SYMPTOMS OF EXACERBATION OR DETERIORATION. PT / FIRE ALARM INSTALLER TO EDUCATE ON ATRIAL FIBRILLATION SELF-MANAGEMENT. PT/FIRE ALARM INSTALLER TO IDENTIFY FALL RISK FACTORS; EDUCATE THE PATIENT/CAREGIVER ON WAYS TO REDUCE FALL RISK FACTORS AND ESTABLISH HOME EXERCISE PROGRAM TO MINIMIZE FALL RISK. MAY TEACH THE PATIENT FLOOR RECOVERY WHEN CLINICALLY APPROPRIATE PT / FIRE ALARM INSTALLER TO EDUCATE ON DIABETES SELF- MANAGEMENT [code = AGENCY MAY PERFORM A RESUMPTION OF CARE VISIT FOLLOWING ANY HOSPITAL ADMISSION. PT TO EVALUATE, OBSERVE / ASSESS, AND MONITOR, FIRE ALARM INSTALLER TO OBSERVE AND MONITOR, PROVIDE SKILLED THERAPEUTIC INTERVENTION, ACTIVITY, EDUCATION, AND TRAINING TO ADDRESS; PT/FIRE ALARM INSTALLER TO PROVIDE GAIT TRAINING FOR IMPROVED MOBILITY AND /OR TO NORMALIZE GAIT PATTERN NEUROMUSCULAR RE-EDUCATION / BALANCE / POSTURAL CONTROL (PT) THERAPEUTIC EXERCISES AND ESTABLISHING A HOME EXERCISE PROGRAM (PT/FIRE ALARM INSTALLER) SIT TO/FROM STAND TRANSFERS (PT/FIRE ALARM INSTALLER) PT / FIRE ALARM INSTALLER TO OBSERVE FOR EARLY SIGNS AND SYMPTOMS OF DEPRESSION OR DEPRESSION GETTING WORSE AND TO EDUCATE ON HOW TO FIND HELP. PT / FIRE ALARM INSTALLER MAY EDUCATE ON PAIN MANAGEMENT CLINICALLY INDICATED, INCLUDING NON-PHARMACOLOGICAL PAIN REDUCTION TECHNIQUES AND USE OF CRYOTHERAPY OR HEAT UP TO 20 MIN AT A TIME FOR PAIN MANAGEMENT 6-8 TIMES PER DAY TO RIGHT HIP PT / FIRE ALARM INSTALLER TO INSTRUCT PATIENT/CAREGIVER ON RISK FOR HOSPITALIZATION/EMERGENCY ROOM VISITS, TEACH SIGNS AND SYMPTOMS THAT PUT PATIENT AT RISK, WHEN TO NOTIFY NURSE/PHYSICIAN OF COMPLICATIONS/DECLINE, AND WHEN TO CALL 911. PT/FIRE ALARM INSTALLER TO EDUCATE ON FEMUR FRACTURE /ORIF SELF-MANAGEMENT. PT / FIRE ALARM INSTALLER TO EDUCATE ON HYPERTENSION SELF-MANAGEMENT PT TO ASSESS / FIRE ALARM INSTALLER TO MONITOR CARDIO/RESPIRATORY SYSTEM; AND NOTIFY THE PHYSICIAN AND/OR THE RN CLINICAL HUMAN RESOURCES OPERATIONS COORDINATOR FOR PHYSICIAN NOTIFICATION FOR EARLY SIGNS AND SYMPTOMS OF EXACERBATION OR DETERIORATION. PT / FIRE ALARM INSTALLER TO EDUCATE ON ATRIAL FIBRILLATION SELF-MANAGEMENT. PT/FIRE ALARM INSTALLER TO IDENTIFY FALL RISK FACTORS; EDUCATE THE PATIENT/CAREGIVER ON WAYS TO REDUCE FALL RISK FACTORS AND ESTABLISH HOME EXERCISE PROGRAM TO MINIMIZE FALL RISK. MAY TEACH THE PATIENT FLOOR RECOVERY WHEN CLINICALLY APPROPRIATE PT / FIRE ALARM INSTALLER TO EDUCATE ON DIABETES SELF- MANAGEMENT] Future Scheduled Test OCCUPATION AL THERAPY EVALUATION PERFORMED. NO ADDITIONAL VISITS REQUIRED. PROVIDED SKILLED INTERVENTION INCLUDING TASK/PERFORMANCE ANALYSIS, SIMULATION, PATIENT REPORT, AND CLINICAL JUDGEMENT TO DETERMINE CLOF. [code = OCCUPATIONAL THERAPY EVALUATION PERFORMED. NO ADDITIONAL VISITS REQUIRED. PROVIDED SKILLED INTERVENTION INCLUDING TASK/PERFORMANCE ANALYSIS, SIMULATION, PATIENT REPORT, AND CLINICAL JUDGEMENT TO DETERMINE CLOF. ] Goal Patient Goal - T O GET UP ON HER OWN AND BACK TO PLOF Goal Provider Goal - A PLAN OF CARE WILL BE ESTABLISHED THAT MEETS THE PATIENTS NEEDS. PATIENT WILL DEMONSTRATE OXYGEN SATURATION WITHIN NORMAL LIMITS OR PATIENTS OPTIMAL LEVEL ESTABLISHED BY THE PHYSICIAN THROUGHOUT CARE. CHANGES TO CO-MORBID CONDITIONS AND ANY NEW CONDITIONS WILL BE IDENTIFIED AND REPORTED TO THE PHYSICIAN. Goal Provider Goal - PATIENT/CAREGIVER TO VERBALIZE, AND CONSISTENTLY DEMONSTRATE EFFECTIVE, SAFE MANAGEMENT OF MEDICATION INCLUDING KNOWLEDGE OF EFFECTIVENESS, POTENTIAL SIDE EFFECTS AND DRUG REACTIONS AND WHEN TO CONTACT THE APPROPRIATE CARE PROVIDER. PATIENT/CAREGIVER WILL BE ABLE TO VERBALIZE UNDERSTANDING OF MEDICATION REGIMEN AND ACCURATELY TAKE MEDICATIONS PRESCRIBED WITHOUT ADVERSE EFFECTS BY EOE Goal Provider Goal - INEFFECTIVE ANTICOAGULATION THERAPY WILL BE IDENTIFIED AND PROMPTLY REPORTED TO THE PHYSICIAN. PATIENT / CAREGIVER WILL VERBALIZE UNDERSTANDING OF MEASURES TO MAINTAIN EFFECTIVE ANTICOAGULATION THERAPY BY EOE Goal Provider Goal - PATIENT/CAREGIVER WILL VERBALIZE UNDERSTANDING OF SIGNS AND SYMPTOMS THAT PUT THE PATIENT AT RISK FOR HOSPITALIZATION /EMERGENCY ROOM VISITS, WHEN TO NOTIFY NURSE/PHYSICIAN OF COMPLICATIONS/DECLINE AND WHEN TO CALL 911. Goal Provider Goal - PATIENT / CAREGIVER WILL VERBALIZE/DEMONSTRATE UNDERSTANDING OF MEASURES TO MANAGE ALTERED CARDIOVASCULAR STATUS BY EOE Goal Provider Goal - PATIENT / CAREGIVER WILL VERBALIZE/DEMONSTRATE AN ABILITY TO ADHERE TO SELF-MANAGEMENT OF HTN TO MINIMIZE COMPLICATIONS AND AVOID HOSPITALIZATION BY END OF EPISODE. Goal Provider Goal - PATIENT / CAREGIVER WILL VERBALIZE/DEMONSTRATE AN ABILITY TO ADHERE TO SELF-MANAGEMENT OF HEART ARRHYTHMIA TO MINIMIZE COMPLICATIONS AND AVOID HOSPITALIZATION BY END OF EPISODE. Goal Provider Goal - PATIENT / CAREGIVER WILL VERBALIZE / DEMONSTRATE ABILITY TO PERFORM WOUND CARE. WOUND STATUS WILL IMPROVE EVIDENCED BY A DECREASE IN SIZE, DRAINAGE, ABSENCE OF INFECTION, AND DECREASED PAIN BY EOE Goal Provider Goal - PATIENT / CAREGIVER WILL VERBALIZE / DEMONSTRATE ABILITY TO PERFORM WOUND CARE. WOUND STATUS WILL IMPROVE EVIDENCED BY A DECREASE IN SIZE, DRAINAGE, ABSENCE OF INFECTION, AND DECREASED PAIN BY END OF EPISODE. Goal Provider Goal - PATIENT / CAREGIVER WILL VERBALIZE / DEMONSTRATE UNDERSTANDING OF PAIN CONTROL MEASURES BY EOE Goal Provider Goal - PATIENT/CAREGIVER WILL VERBALIZE UNDERSTANDING OF CARE AND MANAGEMENT OF ANEMIA BY END OF EPISODE. Goal Provider Goal - PATIENT/CAREGIVER WILL VERBALIZE/DEMONSTRATE UNDERSTANDING OF FALL RISK FACTORS AND IMPLEMENT STRATEGIES TO MINIMIZE FALL RISK. PATIENT/CAREGIVER WILL VERBALIZE/DEMONSTRATE AN ABILITY TO ADHERE TO FALL REDUCTION SELF-MANAGEMENT AND LIFE-STYLE CHANGES BY EOE Goal Provider Goal - Goal Provider Goal - Goal Provider Goal - Goal Provider Goal - PATIENT/CAREGIVER WILL VERBALIZE UNDERSTANDING OF CARE AND MANAGEMENT OF BLOOD CLOT BY END OF EPISODE. Goal Provider Goal - PATIENT / CAREGIVER WILL VERBALIZE / DEMONSTRATE AN ABILITY TO ADHERE TO SELF-MANAGEMENT OF DIABETES MANAGEMENT BY EOE Goal Provider Goal - PATIENT / CAREGIVER WILL VERBALIZE/DEMONSTRATE UNDERSTANDING OF MEASURES TO MANAGE ALTERED GENITOURINARY STATUS BY END OF EPISODE. Goal Provider Goal - PATIENT/CAREGIVER WILL BE ABLE TO VERBALIZE/DEMONSTRATE APPROPRIATE UROSTOMY MANAGEMENT BY MOUTH Goal Provider Goal - PATIENT WILL DEMONSTRATE IMPROVEMENT IN S/S OF UTI TO AVOID HOSPITALIZATION. Goal Provider Goal - PATIENT/CAREGIVER WILL VERBALIZE/DEMONSTRATE UNDERSTANDING OF CARE AND MANAGEMENT OF URINARY TRACT INFECTION BY EOE Goal Provider Goal - PATIENT / CAREGIVER WILL VERBALIZE/DEMONSTRATE UNDERSTANDING OF MEASURES TO MINIMIZE COMPLICATIONS AND REDUCE HOSPITALIZATION RELATED TO CANCER BY END OF EPISODE. Goal Provider Goal - PATIENT WILL DEMONSTRATE REDUCED GAIT DEVIATIONS TO REDUCE THE RISK FOR FALLING AND MINIMIZE STRAIN ON KNEES/HIPS AND BACK EVIDENCED BY IMPROVED UPRIGHT POSTURE TO EQUALIZED STEP LENGTHS TO NORMALIZE GAIT EFFICIENCY USING WW X 30 FEET WITH RIGHT LE TTWB ON EVEN SURFACES WITHIN APT WITH SBA AND VERBAL INSTRUCTIONS TO WALK X 200 WITH WW WITH RIGHT LE TTWB INDEPENDENTLY IN ORDER TO ACCESS THE DINING ROOM AND BATHROOM WITHIN 9 WEEKS. PATIENT WILL DEMONSTRATE REDUCED FALL RISK EVIDENCED BY TINETTI SCORE IMPROVING FROM 13/28 TO 19/28 WITHIN 9 WEEKS. PT STG: PATIENT WILL DEMONSTRATE INCREASED STRENGTH OF RIGHT HIP FROM 3-/5 TO 3/5 WITHIN 3 WEEKS IN ORDER TO IMPROVE GAIT/BALANCE TO BATHROOM/KITCHEN PT LTG: PATIENT WILL DEMONSTRATE INCREASED STRENGTH OF RIGHT HIP FROM 3-/5 TO 4-/5 WITHIN 3 WEEKS IN ORDER TO IMPROVE GAIT/BALANCE TO BATHROOM/KITCHEN PATIENT WILL BE INDEPENDENT WITH COMPREHENSIVE HOME EXERCISE PROGRAM TO ENSURE THERAPY CARRYOVER WITHIN 9 WEEKS TO ASSURE LE STRENGTH TO SAFELY AMBULATE TO BATHROOM/DINING ROOM. PT STG: PATIENT WILL DEMONSTRATE IMPROVED ABILITY TO PERFORM SIT TO/FROM STAND TRANSFERS FROM VARIOUS HEIGHT SEATS TO REDUCE THE RISK OF SKIN BREAKDOWN AND REDUCE FALL RISK FROM WITH USE OF UES WITH WW WITH SBA WITH RIGHT LE TTWB TO INDEPENDENTLY WITH USE OF WW WITH RIGHT LE TTWB WITHIN 9 WEEKS. PT LTG: EARLY IDENTIFICATION OF WORSENING DEPRESSION WITH TIMELY SN AND/OR PHYSICIAN NOTIFICATION. PT GOAL: PATIENT WILL DEMONSTRATE UNDERSTANDING OF PAIN MANAGEMENT TECHNIQUES EVIDENCED BY REDUCED PAIN IN RIGHT HIP WITHIN 9 WEEKS PT GOAL: PATIENT/CAREGIVER WILL VERBALIZE UNDERSTANDING OF SIGNS AND SYMPTOMS THAT PUT THE PATIENT AT RISK FOR HOSPITALIZATION /EMERGENCY ROOM VISITS, WHEN TO NOTIFY NURSE/PHYSICIAN OF COMPLICATIONS/DECLINE AND WHEN TO CALL 911. PT GOAL: PATIENT WILL DEMONSTRATE OPTIMAL OUTCOMES INCLUDING INCREASED STRENGTH AND MOBILITY WITH NO COMPLICATIONS FOLLOWING FEMUR FRACTURE/ORIF BY END OF EPISODE. PT GOAL: PATIENT/CAREGIVER WILL BE ABLE TO IDENTIFY SIGNS OF EXACERBATION OF HYPERTENSION AND WILL VERBALIZE/DEMONSTRATE AN ABILITY TO ADHERE TO HYPERTENSION SELF-MANAGEMENT AND LIFE-STYLE CHANGES BY END OF EPISODE PT LTG: PATIENT WILL NOT EXPERIENCE CARDIAC OR RESPIRATORY COMPLICATIONS THROUGHOUT THE EPISODE OF CARE. PT GOAL: PATIENT/CAREGIVER WILL BE ABLE TO IDENTIFY SIGNS OF ATRIAL FIBRILLATION EXACERBATION AND WILL VERBALIZE/DEMONSTRATE AN ABILITY TO ADHERE TO ATRIAL FIBRILLATION SELF-MANAGEMENT AND LIFE-STYLE CHANGES BY END OF EPISODE. PT LTG: PATIENT/CAREGIVER WILL DEMONSTRATE ADHERENCE TO FALL REDUCTION SELF-MANAGEMENT AND REDUCING FALL RISK FACTORS TO MINIMIZE FALL RISK BY END OF EPISODE PATIENT/CAREGIVER WILL BE ABLE TO IDENTIFY SIGNS OF HYPER- AND HYPOGLYCEMIA AND VERBALIZE HOW TO MANAGE SYMPTOMS. Goal Provider Goal - PATIENT / CAREGIVER WITHIN 1 VISIT WILL BE ABLE TO VERBALIZE / DEMONSTRATE UNDERSTANDING OF HEP FOR STRENGTHENING. Encounters Start Date/Time End Date/Time Encounter Type Admission Type Attending Clinicians Care Facility Care Department Encounter ID Discharge Date Discharge Status Discharge Condition Discharge Reason Percent Goals Met 2024-09-14 00:00:00 2024-11-12 00:00:00 Outpatient [facility] [id number] [id number]
--- NOTE | 2024-09-23 13:32 | ED_ITS ---
HPI - Weakness General Chief complaint: Weakness <Yazmin Mitchell PA-C - Last Filed: 09/23/24 13:59> Stated complaint: not feeling good <Yazmin Mitchell PA-C - Last Filed: 09/23/24 13:59> Time Seen by Provider: 09/23/24 13:32 <Yazmin Mitchell PA-C - Last Filed: 09/23/24 13:59> Focused HPI: Patient is an 83 y/o female who presents to the ED via EMS with report of weakness. Patient reports she felt somewhat under the weather yesterday. Woke up today still not feeling well. Reports chills/shakiness. Her home health nurse reported that her blood pressure was low today. Sent here for further evaluation. Patient denies cough, congestion, N/V/D, fever, CP, SOB Patient had recent R hip fx /surgery at [facility]. Hx of bladder CA s/p cystectomy with ileostomy pouch. GENERAL: Elderly but well-appearing, well-nourished, and in no acute distress. HEAD: Normocephalic, atraumatic. CHEST: Clear to auscultation. ?No respiratory distress. No focal lung sounds. HEART: Regular rate and rhythm.? NEURO: ?Alert and oriented x3. No focal deficits. No pronator drift. Equal laser/electro optics technician strength bilaterally. Patient screened in triage and initial orders placed.? ?Additional care and disposition to be based upon?diagnostic testing and treatment. <Yazmin Mitchell PA-C - Last Filed: 09/23/24 13:59> Source: patient <Yazmin Mitchell PA-C - Last Filed: 09/23/24 13:59> Mode of arrival: EMS <Yazmin Mitchell PA-C - Last Filed: 09/23/24 13:59> Limitations: no limitations <Yazmin Mitchell PA-C - Last Filed: 09/23/24 13:59> History of Present Illness HPI Narrative: per HPI <Carola Vizcarra MD - Last Filed: 09/23/24 18:14> Related Data Home medications: Home Medications ?Medication ?Instructions ?Recorded ?Confirmed ?Last Taken ?Type PreserVision AREDS-2 1 tab-cap PO DAILY 08/16/19 09/14/24 09/19/21 History acetaminophen 325 mg tablet 650 mg PO Q6H PRN pain 08/27/24 09/14/24 Unknown History dulaglutide 1.5 mg/0.5 mL 1.5 mg subcut WEEKLY 08/27/24 09/14/24 Unknown History subcutaneous pen injector (Trulicity) morphine (PF) 1 syr continuous intrathecal 08/27/24 09/14/24 Unknown History infusion DAILY polyethylene glycol 3350 17 17 g PO DAILY PRN constipation 08/27/24 09/14/24 Unknown History gram/dose oral powder sennosides 8.6 mg-docusate sodium 2 tablet PO BID PRN constipation 08/27/24 09/14/24 Unknown History 50 mg tablet (Senokot-S) <Yazmin Mitchell PA-C - Last Filed: 09/23/24 13:59> Allergies/Adverse reactions: Allergies Allergy/AdvReac Type Severity Reaction Status Date / Time dimenhydrinate Allergy Severe THROAT Verified 09/14/24 15:57 SWELLING iodine Allergy Intermediate Rash Verified 09/14/24 15:57 Contrast Media Allergy Intermediate RASH Uncoded 09/14/24 15:57 <Yazmin Mitchell PA-C - Last Filed: 09/23/24 13:59> Review of Systems 2 Review of Systems: All systems reviewed & are unremarkable except as noted in HPI and below <Carola Vizcarra MD - Last Filed: 09/23/24 18:14> [facility] Past Medical History Medical History: Medical History Constipation due to opioid therapy Hypothyroidism Chronic anticoagulation Type 2 diabetes mellitus Chronic pain Chronic kidney disease, stage 3 Irritable bowel syndrome Transient ischemic attack Hypertension Deep venous thrombosis Gastroesophageal reflux disease Coronary artery disease Paroxysmal atrial fibrillation Blind Macular degeneration Chronic right hip pain History of blood transfusion Hepatitis A Anemia Skin cancer Anxiety Depression Arthritis Bladder cancer Bowel obstruction History of rectal polyps Diverticulitis Hyperlipidemia Menieres disease Seasonal allergies <Yazmin Mitchell PA-C - Last Filed: 09/23/24 13:59> Surgical History Surgical History: Surgical History Status post insertion of intrathecal pump chronic morphine sulfate 170.1 mcg daily Greater trochanteric bursitis of right hip surgical re-debridement January 2020 History of coronary artery stent placement History of foot surgery Left History of hip surgery Right hip abductor repair History of coronary artery stent placement H/O local excision of skin lesion History of brain surgery History of back surgery History of ileal conduit History of hysterectomy History of bladder surgery History of appendectomy History of hernia repair History of angioplasty History of cardiac catheterization History of tonsillectomy History of cataract surgery <Yazmin Mitchell PA-C - Last Filed: 09/23/24 13:59> Family History Family History: Family History Mother Diabetes mellitus Hypertension Family history of coronary artery disease Sibling Diabetes mellitus Hypertension Family history of malignant neoplasm Carcinoma of colon Family history of Alzheimer's disease Family history of malignant neoplasm of bone Family history of coronary artery disease <Yazmin Mitchell PA-C - Last Filed: 09/23/24 13:59> Social History Social History: Social History Social History: Surrogate medical decision maker: Samir Luz, spouse. Code status: Smoking packs per day: 1 Smoking cigarettes per day: 20.0 Years smoked: 20 Smoking pack-years: 20.00 Smoking status: Former smoker Tobacco type: cigarettes Second hand tobacco smoke exposure: No Smoking end date: 05/12/00 Alcohol intake: never Drinks per week: 0 Alcohol use details: rarely Substance use: current Substance use type: opiates Other substance usage details: Morphine pain pump Last use: 08/27/2024 Do You Feel Safe in your Home?: Yes Lack of Transportation: No Lack of Food: Never True Current Housing: I Have Housing Concerned About Future Housing: No Difficulty Paying Gas/Electric Bills: No Difficulty Paying for Meds: No Currently Unemployed: No Education: Decline to Answer Difficulty w/ Childcare or Family Care: No Living arrangements: with family Additional living arrangements comments: Occupation/Education: retired Gender identity (if verbalized by the patient): Female Sexual Orientation (if Verbalized by the Patient): Straight or Heterosexual Spiritual care concerns: No Agree to blood products: Yes <Yazmin Mitchell PA-C - Last Filed: 09/23/24 13:59> Exam 2 Narrative: EXAMINATION OF ORGAN SYSTEMS/BODY AREAS: Constitutional: Vital signs per nursing GENERAL:[No acute distress, non-toxic appearing.] HEAD: Normal with no signs of head trauma. EYES: EOMI, conjunctiva normal ENT: Hearing grossly intact LUNGS: Nonlabored breathing. HEART: [Regular rate and rhythm] ABD: [Soft], [nontender to palpation] EXT: Normal range of motion SKIN: Small decub ulcer that does not appear infected NEURO: [Alert and oriented x 3. No gross focal sensory or strength deficits other than some tremors.] PSYCH: Normal affect <Carola Vizcarra MD - Last Filed: 09/23/24 18:14> Course Vital Signs Vital signs: Vital Signs Temperature 97.6 F 09/23/24 11:44 Pulse Rate 79 09/23/24 11:44 Respiratory Rate 16 09/23/24 11:44 Blood Pressure 100/58 L 09/23/24 11:44 Pulse Oximetry 100 09/23/24 11:44 Oxygen Delivery Room Air 09/23/24 11:44 Temperature 97.6 F 09/23/24 17:54 Pulse Rate 79 09/23/24 11:44 Respiratory Rate 16 09/23/24 11:44 Blood Pressure 100/58 L 09/23/24 11:44 Pulse Oximetry 100 09/23/24 11:44 Oxygen Delivery Room Air 09/23/24 11:44 <Yazmin Mitchell PA-C - Last Filed: 09/23/24 13:59> Vital Signs Temperature 97.6 F 09/23/24 11:44 Pulse Rate 79 09/23/24 11:44 Respiratory Rate 16 09/23/24 11:44 Blood Pressure 100/58 L 09/23/24 11:44 Pulse Oximetry 100 09/23/24 11:44 Oxygen Delivery Room Air 09/23/24 11:44 Temperature 97.6 F 09/23/24 17:54 Pulse Rate 79 09/23/24 11:44 Respiratory Rate 16 09/23/24 11:44 Blood Pressure 100/58 L 09/23/24 11:44 Pulse Oximetry 100 09/23/24 11:44 Oxygen Delivery Room Air 09/23/24 11:44 <Carola Vizcarra MD - Last Filed: 09/23/24 18:14> MDM - Weakness MDM Narrative Medical decision making narrative: MSE by NELI in triage. <Yazmin Mitchell PA-C - Last Filed: 09/23/24 13:59> MSE by NELI in triage. // Patient here with generalized weakness, on exam slightly tremulous, she is found to have low blood sugar, given something to eat and drink, however blood sugar still low, given amp of dextrose. She is found to have an DWAIN and UTI and I suspect her infection may have led to some dehydration and resultant DWAIN and this with her glipizide and poor appetite resulted in her hypoglycemia I do feel she needs to be admitted for frequent glucose checks and antibiotics and observation and hydration until her DWAIN resolved. Patient agreeable to this plan. Discussed with hospitalist for admission <Carola Vizcarra MD - Last Filed: 09/23/24 18:14> Lab Data Result diagrams: 09/23/24 13:42 09/23/24 13:42 <Yazmin Mitchell PA-C - Last Filed: 09/23/24 13:59> Labs: Lab Results 09/23/24 09/23/24 09/23/24 Range/Units 13:42 15:03 16:07 WBC 11.7 H (4.5-10.0) K/mm3 RBC 3.83 L (4.2-5.4) M/mm3 Hgb 11.0 L (12.0-15.0) g/dL Hct 34.8 L (37.0-47.0) % MCV 90.9 (80-100) fl MCH 28.7 (26-34) pg MCHC 31.6 L (32-36) g/dl RDW 15.5 H (11.5-14.5) % Plt Count 321 (150-375) k/mm3 MPV 9.0 (7.4-10.4) fl Immature Gran % (Auto) 0.4 (0-0.5) % Neut % (Auto) 88.2 H (45.5-73.1) % Lymph % (Auto) 6.5 L (18.3-44.2) % Wright % (Auto) 4.3 (2.6-8.5) % Eos % (Auto) 0.2 (0-4.4) % Baso % (Auto) 0.4 (0.2-1.2) % Lymph # (Auto) 0.76 L (0.9-3.2) K/mm3 Wright # (Auto) 0.5 (0.1-0.6) K/mm3 Eos # (Auto) 0.0 (0-0.3) K/mm3 Baso # (Auto) 0.1 (0.0-0.1) K/mm3 Abs Immat Gran (auto) 0.05 H (0.00-0.031) K/mm3 Absolute Neuts (auto) 10.4 H (1.3-6.7) K/mm3 Absolute Nucleated RBC 0.000 (0.0-0.012) K/mm3 Nucleated RBC % 0.0 (0.0-0.2) % PT 16.4 H (11.1-14.7) Seconds INR 1.3 APTT 29.3 (22.3-36.8) Seconds Sodium 135 L (137-145) mmol/L Potassium 5.4 H (3.4-5.0) mmol/L Chloride 107 (98-107) mmol/L Carbon Dioxide 14 L (22-30) mmol/L Anion Gap 14 H (4-12) mmol/L BUN 74 H D (7-17) mg/dL Creatinine 1.89 H (0.7-1.0) mg/dL Estim Creat Clear Calc 18 ml/min Estimated GFR 25 L (59 - ) Glucose 49 L* (65-110) mg/dL POC Capillary Glucose 46 L* 138 H (65-105) mg/dl Calcium 9.4 (8.4-10.2) mg/dL Magnesium 1.8 (1.6-2.3) mg/dL Total Bilirubin 0.3 (0.2-1.3) mg/dL AST 24 (14-36) U/L ALT 14 (6-35) U/L Alkaline Phosphatase 146 H (38-126) U/L Troponin I < 0.012 (0.000-0.034) ng/mL Total Protein 7.0 (6.3-8.2) g/dL Albumin 3.7 (3.5-5.1) g/dL Urine Color (Yellow) Urine Appearance (Clear) Urine pH (5.0-9.0) Ur Specific [place] (1.001-1.035) Urine Protein (Negative) mg/dL Urine Glucose (UA) (Negative) mg/dL Urine Ketones (Negative) mg/dL Ur Blood (Man) (Negative) Urine Nitrate (Negative) Urine Bilirubin (Negative) Urine Urobilinogen (<2.0) mg/dL Leukocyte Esterase Rfl (Negative) LORRAINE/UL Urine RBC (0-2) /hpf Urine WBC (0-3) /hpf Ur Squamous Epith Cells (Few) /hpf Urine Bacteria /hpf Urine Casts Influenza A (RT-PCR) Negative (Negative) Influenza B (RT-PCR) Negative (Negative) RSV (RT-PCR) Negative (Negative) SARS-CoV-2 RNA (RT-PCR) Negative (Negative) 09/23/24 09/23/24 Range/Units 17:04 17:09 WBC (4.5-10.0) K/mm3 RBC (4.2-5.4) M/mm3 Hgb (12.0-15.0) g/dL Hct (37.0-47.0) % MCV (80-100) fl MCH (26-34) pg MCHC (32-36) g/dl RDW (11.5-14.5) % Plt Count (150-375) k/mm3 MPV (7.4-10.4) fl Immature Gran % (Auto) (0-0.5) % Neut % (Auto) (45.5-73.1) % Lymph % (Auto) (18.3-44.2) % Wright % (Auto) (2.6-8.5) % Eos % (Auto) (0-4.4) % Baso % (Auto) (0.2-1.2) % Lymph # (Auto) (0.9-3.2) K/mm3 Wright # (Auto) (0.1-0.6) K/mm3 Eos # (Auto) (0-0.3) K/mm3 Baso # (Auto) (0.0-0.1) K/mm3 Abs Immat Gran (auto) (0.00-0.031) K/mm3 Absolute Neuts (auto) (1.3-6.7) K/mm3 Absolute Nucleated RBC (0.0-0.012) K/mm3 Nucleated RBC % (0.0-0.2) % PT (11.1-14.7) Seconds INR APTT (22.3-36.8) Seconds Sodium (137-145) mmol/L Potassium (3.4-5.0) mmol/L Chloride (98-107) mmol/L Carbon Dioxide (22-30) mmol/L Anion Gap (4-12) mmol/L BUN (7-17) mg/dL Creatinine (0.7-1.0) mg/dL Estim Creat Clear Calc ml/min Estimated GFR (59 - ) Glucose (65-110) mg/dL POC Capillary Glucose 101 (65-105) mg/dl Calcium (8.4-10.2) mg/dL Magnesium (1.6-2.3) mg/dL Total Bilirubin (0.2-1.3) mg/dL AST (14-36) U/L ALT (6-35) U/L Alkaline Phosphatase (38-126) U/L Troponin I (0.000-0.034) ng/mL Total Protein (6.3-8.2) g/dL Albumin (3.5-5.1) g/dL Urine Color Yellow (Yellow) Urine Appearance Clear (Clear) Urine pH 6.5 (5.0-9.0) Ur Specific [place] 1.012 (1.001-1.035) Urine Protein Trace (Negative) mg/dL Urine Glucose (UA) Negative (Negative) mg/dL Urine Ketones Negative (Negative) mg/dL Ur Blood (Man) Negative (Negative) Urine Nitrate Negative (Negative) Urine Bilirubin Negative (Negative) Urine Urobilinogen 0.2 (<2.0) mg/dL Leukocyte Esterase Rfl 1+ H (Negative) LORRAINE/UL Urine RBC 0-2 (0-2) /hpf Urine WBC 11-20 H (0-3) /hpf Ur Squamous Epith Cells Occasional (Few) /hpf Urine Bacteria 4+ H /hpf Urine Casts 3-5 Influenza A (RT-PCR) (Negative) Influenza B (RT-PCR) (Negative) RSV (RT-PCR) (Negative) SARS-CoV-2 RNA (RT-PCR) (Negative) <TRACY BeyerC - Last Filed: 09/23/24 13:59> Lab Results 09/23/24 09/23/24 09/23/24 Range/Units 13:42 15:03 16:07 WBC 11.7 H (4.5-10.0) K/mm3 RBC 3.83 L (4.2-5.4) M/mm3 Hgb 11.0 L (12.0-15.0) g/dL Hct 34.8 L (37.0-47.0) % MCV 90.9 (80-100) fl MCH 28.7 (26-34) pg MCHC 31.6 L (32-36) g/dl RDW 15.5 H (11.5-14.5) % Plt Count 321 (150-375) k/mm3 MPV 9.0 (7.4-10.4) fl Immature Gran % (Auto) 0.4 (0-0.5) % Neut % (Auto) 88.2 H (45.5-73.1) % Lymph % (Auto) 6.5 L (18.3-44.2) % Wright % (Auto) 4.3 (2.6-8.5) % Eos % (Auto) 0.2 (0-4.4) % Baso % (Auto) 0.4 (0.2-1.2) % Lymph # (Auto) 0.76 L (0.9-3.2) K/mm3 Wright # (Auto) 0.5 (0.1-0.6) K/mm3 Eos # (Auto) 0.0 (0-0.3) K/mm3 Baso # (Auto) 0.1 (0.0-0.1) K/mm3 Abs Immat Gran (auto) 0.05 H (0.00-0.031) K/mm3 Absolute Neuts (auto) 10.4 H (1.3-6.7) K/mm3 Absolute Nucleated RBC 0.000 (0.0-0.012) K/mm3 Nucleated RBC % 0.0 (0.0-0.2) % PT 16.4 H (11.1-14.7) Seconds INR 1.3 APTT 29.3 (22.3-36.8) Seconds Sodium 135 L (137-145) mmol/L Potassium 5.4 H (3.4-5.0) mmol/L Chloride 107 (98-107) mmol/L Carbon Dioxide 14 L (22-30) mmol/L Anion Gap 14 H (4-12) mmol/L BUN 74 H D (7-17) mg/dL Creatinine 1.89 H (0.7-1.0) mg/dL Estim Creat Clear Calc 18 ml/min Estimated GFR 25 L (59 - ) Glucose 49 L* (65-110) mg/dL POC Capillary Glucose 46 L* 138 H (65-105) mg/dl Calcium 9.4 (8.4-10.2) mg/dL Magnesium 1.8 (1.6-2.3) mg/dL Total Bilirubin 0.3 (0.2-1.3) mg/dL AST 24 (14-36) U/L ALT 14 (6-35) U/L Alkaline Phosphatase 146 H (38-126) U/L Troponin I < 0.012 (0.000-0.034) ng/mL Total Protein 7.0 (6.3-8.2) g/dL Albumin 3.7 (3.5-5.1) g/dL Urine Color (Yellow) Urine Appearance (Clear) Urine pH (5.0-9.0) Ur Specific [place] (1.001-1.035) Urine Protein (Negative) mg/dL Urine Glucose (UA) (Negative) mg/dL Urine Ketones (Negative) mg/dL Ur Blood (Man) (Negative) Urine Nitrate (Negative) Urine Bilirubin (Negative) Urine Urobilinogen (<2.0) mg/dL Leukocyte Esterase Rfl (Negative) LORRAINE/UL Urine RBC (0-2) /hpf Urine WBC (0-3) /hpf Ur Squamous Epith Cells (Few) /hpf Urine Bacteria /hpf Urine Casts Influenza A (RT-PCR) Negative (Negative) Influenza B (RT-PCR) Negative (Negative) RSV (RT-PCR) Negative (Negative) SARS-CoV-2 RNA (RT-PCR) Negative (Negative) 09/23/24 09/23/24 Range/Units 17:04 17:09 WBC (4.5-10.0) K/mm3 RBC (4.2-5.4) M/mm3 Hgb (12.0-15.0) g/dL Hct (37.0-47.0) % MCV (80-100) fl MCH (26-34) pg MCHC (32-36) g/dl RDW (11.5-14.5) % Plt Count (150-375) k/mm3 MPV (7.4-10.4) fl Immature Gran % (Auto) (0-0.5) % Neut % (Auto) (45.5-73.1) % Lymph % (Auto) (18.3-44.2) % Wright % (Auto) (2.6-8.5) % Eos % (Auto) (0-4.4) % Baso % (Auto) (0.2-1.2) % Lymph # (Auto) (0.9-3.2) K/mm3 Wright # (Auto) (0.1-0.6) K/mm3 Eos # (Auto) (0-0.3) K/mm3 Baso # (Auto) (0.0-0.1) K/mm3 Abs Immat Gran (auto) (0.00-0.031) K/mm3 Absolute Neuts (auto) (1.3-6.7) K/mm3 Absolute Nucleated RBC (0.0-0.012) K/mm3 Nucleated RBC % (0.0-0.2) % PT (11.1-14.7) Seconds INR APTT (22.3-36.8) Seconds Sodium (137-145) mmol/L Potassium (3.4-5.0) mmol/L Chloride (98-107) mmol/L Carbon Dioxide (22-30) mmol/L Anion Gap (4-12) mmol/L BUN (7-17) mg/dL Creatinine (0.7-1.0) mg/dL Estim Creat Clear Calc ml/min Estimated GFR (59 - ) Glucose (65-110) mg/dL POC Capillary Glucose 101 (65-105) mg/dl Calcium (8.4-10.2) mg/dL Magnesium (1.6-2.3) mg/dL Total Bilirubin (0.2-1.3) mg/dL AST (14-36) U/L ALT (6-35) U/L Alkaline Phosphatase (38-126) U/L Troponin I (0.000-0.034) ng/mL Total Protein (6.3-8.2) g/dL Albumin (3.5-5.1) g/dL Urine Color Yellow (Yellow) Urine Appearance Clear (Clear) Urine pH 6.5 (5.0-9.0) Ur Specific [place] 1.012 (1.001-1.035) Urine Protein Trace (Negative) mg/dL Urine Glucose (UA) Negative (Negative) mg/dL Urine Ketones Negative (Negative) mg/dL Ur Blood (Man) Negative (Negative) Urine Nitrate Negative (Negative) Urine Bilirubin Negative (Negative) Urine Urobilinogen 0.2 (<2.0) mg/dL Leukocyte Esterase Rfl 1+ H (Negative) LORRAINE/UL Urine RBC 0-2 (0-2) /hpf Urine WBC 11-20 H (0-3) /hpf Ur Squamous Epith Cells Occasional (Few) /hpf Urine Bacteria 4+ H /hpf Urine Casts 3-5 Influenza A (RT-PCR) (Negative) Influenza B (RT-PCR) (Negative) RSV (RT-PCR) (Negative) SARS-CoV-2 RNA (RT-PCR) (Negative) <Carola Vizcarra MD - Last Filed: 09/23/24 18:14> Discharge Plan Discharge Clinical Impression: Acute UTI, Hypoglycemia, DWAIN (acute kidney injury) <Yazmin Mitchell PA-C - Last Filed: 09/23/24 13:59> Patient Disposition: Still a Patient <Yazmin Mitchell PA-C - Last Filed: 09/23/24 13:59> Condition: Stable <ANA MARIA Beyer Last Filed: 09/23/24 13:59> Patient Language: Luxembourgish <Yazmin Mitchell PA-C - Last Filed: 09/23/24 13:59> Prescriptions: No Action (DME) FreeStyle Marcos 2 Sensor Kit See Rx Instructions .Route Qty: 2 5RF Rx Instructions: test qam and prn (DME) FreeStyle Marcos 2 Artemas Misc See Rx Instructions .Route Qty: 1 0RF Rx Instructions: test qam and fasting PreserVision AREDS-2 1 tab-cap PO DAILY (DME) pen needle, diabetic [Novofine 32] 32 gauge x 1/4 needle See Rx Instructions .ROUTE .MEDSUPPLY Qty: 200 3RF Rx Instructions: inject twice daily omeprazole 40 mg capsule,delayed release(DR/EC) 40 mg PO DAILY 30 Days Qty: 90 3RF morphine (PF) [Mitigo (PF)] 1 syr continuous intrathecal infusion DAILY polyethylene glycol 3350 17 gram/dose powder 17 g PO DAILY PRN (Reason: constipation) acetaminophen 325 mg Tablet 650 mg PO Q6H PRN (Reason: pain) sennosides-docusate sodium [Senokot-S] 8.6-50 mg tablet 2 tablet PO BID PRN (Reason: constipation) Trulicity 1.5 mg/0.5 mL pen injector 1.5 mg subcut WEEKLY Rx Instructions: on Fridays dapagliflozin propanediol [Farxiga] 5 mg Tablet 10 mg PO DAILY Qty: 30 0RF Home Medication 1 ea implant DIRECTED Qty: 0 0RF oxycodone 5 mg Tablet 10 mg PO DAILY@0630 Qty: 12 0RF potassium chloride 10 mEq Capsule, Extended Release 10 meq PO DAILY Qty: 30 0RF methocarbamol 500 mg tablet 500 mg PO TID PRN (Reason: muscle spasm) Qty: 30 0RF isosorbide mononitrate 60 mg tablet extended release 24 hr 60 mg PO DAILY Qty: 30 0RF nitroglycerin 0.4 mg Tablet, Sublingual 0.4 mg sublingual PRN PRN (Reason: Chest Pain) Qty: 30 0RF Rx Instructions: Place 1 tablet (0.4mg) under the tongue every 5 minutes for chest pain with a max dose of 3 doses. gabapentin 300 mg capsule 300 mg PO DAILY Qty: 30 0RF hydrochlorothiazide 25 mg tablet 25 mg PO DAILY Qty: 30 0RF metoprolol succinate 25 mg tablet extended release 24 hr 37.5 mg PO DAILY Qty: 30 0RF metformin 500 mg tablet extended release 24 hr 500 mg PO QACBREAK Qty: 30 0RF glipizide 5 mg tablet 5 mg PO DAILY Qty: 30 2RF Rx Instructions: TAKE 1 TABLET DAILY escitalopram oxalate 20 mg tablet 20 mg PO DAILY Qty: 30 0RF amlodipine-atorvastatin 10-40 mg tablet 1 tablet PO DAILY Qty: 30 0RF levothyroxine 50 mcg capsule 50 mcg PO DAILY Qty: 30 0RF <Yazmin N. Gaudreault, PA-C - Last Filed: 09/23/24 13:59> Follow-up/Referrals: Tashi Christianson MD [Primary Care Provider] - <Yazmin Mitchell PA-C - Last Filed: 09/23/24 13:59>
[2024-09-23 13:48] LABS: Basophils Absolute Auto 0.1 K/mm3 (0.0-0.1); Basophils Percent Auto 0.4 % (0.2-1.2); Eosinophils Percent Auto 0.2 % (0-4.4); Hematocrit 34.8 % (37.0-47.0); Immature Granulocyte Absolute 0.05 K/mm3 (0.00-0.031); Immature Granulocyte Percent A 0.4 % (0-0.5); Lymphocytes Absolute Auto 0.76 K/mm3 (0.9-3.2); Lymphocytes Percent Auto 6.5 % (18.3-44.2); Mean Corpuscular HGB Conc 31.6 g/dl (32-36); Mean Corpuscular Hemoglobin 28.7 pg (26-34); Mean Corpuscular Volume 90.9 fl (80-100); Monocytes Absolute Auto 0.5 K/mm3 (0.1-0.6); Monocytes Percent Auto 4.3 % (2.6-8.5); Neutrophils Absolute Auto 10.4 K/mm3 (1.3-6.7); Neutrophils Percent Auto 88.2 % (45.5-73.1); Platelet Count Result 321 k/mm3 (150-375); Red Blood Count 3.83 M/mm3 (4.2-5.4); Red Cell Distribution Width 15.5 % (11.5-14.5); White Blood Count 11.7 K/mm3 (4.5-10.0)
--- OUTSIDE RECORDS SUMMARY | 2024-09-23 13:51 | XMS_ITS | Referral Summary ---
Author Organization [facility] al Address [address] [place] [address] Care Team Providers Care Sports Medicine Coordinator Name Role Phone Tashi Christianson MD Primary Care Provider Pedro Roy NP Unavailable [phone] Encounters Date Type Department Care Team Description 09/16/2024 12:30 PM ENVIRONMENTAL ASSOCIATE Office Visit [facility] [address] [place] [address] 6th [place] [address] [place] [phone] Elena Aroar MD Closed fracture of shaft of right femur, unspecified fracture morphology, initial encounter (HCC) (Primary Dx) 08/23/2024 1:51 PM ENVIRONMENTAL ASSOCIATE - 08/27/2024 7:30 PM ENVIRONMENTAL ASSOCIATE Hospital Encounter [facility] [address] [place] [phone] Felice Goyal MD Snyder, Jason Andrew, MD Fall, initial encounter (Primary Dx); Closed fracture of shaft of right femur, unspecified fracture morphology, initial encounter (HCC) Discharge Disposition: Discharge to an Rehab facility 08/24/2024 Orders Only [facility] [address] [place] [address] 6th [place] [address] [place] [address] Elena Arora MD Periprosthetic fracture of shaft of femur (Primary Dx) 08/24/2024 5:35 PM ENVIRONMENTAL ASSOCIATE Anesthesia Event [facility] Operating Room [address] [place] [address] Davina Mckeon MD Dippolito, Jenny Irene, NP 08/24/2024 6:00 PM ENVIRONMENTAL ASSOCIATE - 08/24/2024 8:40 PM ENVIRONMENTAL ASSOCIATE Surgery [facility] Operating Room [address] [place] [phone] Elena Arora MD REMOVAL/EXCHANGE INTERMEDULLARY NAILING - FEMUR; ORIF DISTAL FEMUR 07/28/[address] 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 (HCC) Take 1 [...] right femur, unspecified fracture morphology, initial encounter ([facility]) Take 2 tablets (320 mg of trimethoprim [...] 08/26/2024 Assessment & Plan (08/26/2024 10:19 AM ENVIRONMENTAL ASSOCIATE): Fell getting out of bed going to walker ABLA (acute blood loss anemia) 08/26/2024 Assessment & Plan (08/27/2024 11:52 AM ENVIRONMENTAL ASSOCIATE): 08/23 On admission hgb 12.9 Pt went [...] 08/26/2024 Assessment & Plan (08/27/2024 11:53 AM ENVIRONMENTAL ASSOCIATE): On admission Cr 1.11 08/26 1.5 One liter of fluid Now mid day 1.23 Monitor BM daily if recurrent elevation transfuse one unit of RBC. -08/27 stable for discharge, encourage PO intake. Cervical radiculopathy 08/25/2024 Assessment & Plan (08/27/2024 11:50 AM ENVIRONMENTAL ASSOCIATE): 08/25 c/o right neck pain post surgery with pain in right index/thumb/palm. -heat/cold compress -range motion/ PT/OT -gabapentin increase to Q8 hours -08/27 pain under control,will have pain regimens on discharge. Right hand pain 08/25/2024 Assessment & Plan (08/27/2024 11:52 AM ENVIRONMENTAL ASSOCIATE): 08/25 Right hand and wrist xray rule [...] 08/24/2024 Assessment & Plan (08/27/2024 11:48 AM ENVIRONMENTAL ASSOCIATE): Chronic Glipizide 5 mg, Metformin 500 mg [...] 08/24/2024 Assessment & Plan (08/27/2024 11:48 AM ENVIRONMENTAL ASSOCIATE): Chronic Atorvastatin 40 mg daily Follow up with previously established provider for ongoing evaluation. Encounter for medication management 08/24/2024 Discharge planning issues 08/24/2024 Assessment & Plan (08/27/2024 11:49 AM ENVIRONMENTAL ASSOCIATE): 08/25 hgb monitoring post surgical procedure, need to work with PT/OT and pain control. ADD 08/27 08/27 Patient is medically stable for discharge, SW/CM updated. Discharge SNF today Chronic pain 08/24/2024 Assessment & Plan (08/27/2024 11:49 AM ENVIRONMENTAL ASSOCIATE): Followed by pain managed Morphine intrathecal management monthly Follow up with previously established provider for ongoing evaluation. Depression 08/24/2024 Assessment & Plan (08/27/2024 11:49 AM ENVIRONMENTAL ASSOCIATE): Lexapro 20 mg daily, continue on discharge Follow up with previously established provider for ongoing evaluation. Periprosthetic fracture of shaft of femur 2024 Closed fracture of shaft of right femur 08/23/19 25 Assessment & Plan (08/27/2024 11:48 AM ENVIRONMENTAL ASSOCIATE): Orthopedic consult Right isaac implant mid shaft [...] on 10/07/[address] Arora located at [facility] 6A Aspirin 81mg BID x 14 days, Bone health follow up. Seroma due to trauma (CMS/HCC) 06/01/2024 Spinal headache 06/01/2024 Chronic pain syndrome 04/07/2024 Degeneration of lumbar intervertebral disc 04/02 Radiculopathy, lumbosacral region 04/02/2024 Pre-operative clearance 03/25/2024 History of 2019 novel coronavirus disease (COVID -19) 05/09/2022 Chronic fatigue 05/09/2022 History of cancer of urethra 10/04/2020 Assessment & Plan (10/04/2020 3:42 PM ENVIRONMENTAL ASSOCIATE): -Diagnosed in 2000. Has had ileal conduit since then. -Doing well overall. No worrisome signs. Encounter for colonoscopy due to history of colo sourav polyp 02/16/2020 Overview (02/16/2020): Added automatically from request for surgery [id number] Closed fracture of phalanx of foot 07/28/2019 Paroxysmal atrial fibrillation (CMS/HCC) 019 Assessment & Plan (08/27/2024 11:47 AM ENVIRONMENTAL ASSOCIATE): Hold home Eliquis Toprol XL 37.5mg daily ---> IR while admitted bid 25 and 12.5 [id number]: 5 -will hold Eliquis and start ASA on discharge, continue home metoprolol Follow up with your PCP for medication evaluation and ongoing evaluation. Chronic anticoagulation 03/31/2019 PSVT (paroxysmal supraventricular tachycardia) ( CMS/HCC) 03/09/2019 Near syncope 02/16/2019 Palpitations 02/16/2019 TIA (transient ischemic attack) 02/16/2019 Esophageal ulcer 08/14/2018 Assessment & Plan (08/27/2024 11:47 AM ENVIRONMENTAL ASSOCIATE): Chronic Omeprazole 40 mg daily --->pantoprazole while admitted. Follow up with previously established provider for ongoing evaluation. Myocardial bridge 05/01/2018 Abnormal stress test 04/11/2018 Acquired hypothyroidism 04/11/2018 Assessment & Plan (08/27/2024 11:47 AM ENVIRONMENTAL ASSOCIATE): Levothyroxine 50 mcg daily Follow up with previously established provider for ongoing evaluation. Hypertension associated with diabetes 04/11/2018 Assessment & Plan (08/27/2024 11:19 AM ENVIRONMENTAL ASSOCIATE): Chronic Losartan 25 mg daily HCTZ 25mg daily hold, Irbesartan 75mg, Amlodipine/Atorvastatin 10/40mg daily -08/27 stable for DC Follow up with previously established provider for ongoing evaluation. Mixed diabetic hyperlipidemi a associated with type 2 diabetes mellitus ([facility]) 04/11/2018 SHEETS (dyspnea on exertion) 04/11/2018 Coronary artery disease invo lving kiowa tribe coronary artery of kiowa tribe heart without angina pectoris 04/11/2018 S/P coronary artery stent placement 04/11/2018 Benign colon polyp 11/18/2017 BPPV (benign paroxysmal posi tional vertigo), unspecified laterality 02/01/2017 Abnormal gait 02/01/2017 Active cochleovestibular Meniere's disease 02/01 Horizontal vertigo, unspecified laterality 12/19 Peripheral vertigo 11/19/2016 History of ileal conduit 10/23/2016 Assessment & Plan (10/04/2020 3:42 PM ENVIRONMENTAL ASSOCIATE): -Stoma pink and moist -Urine clear, yellow [...] on file Legal Sex Female 11:33 PM ENVIRONMENTAL ASSOCIATE Gender Identity Not on file Sexual Orientation Not on file Occupation Industry Job Start Date Job End Date Retired Not on file Not on file Not on file Last Filed Vital Signs Vital Sign Reading Time Taken Comments Blood Pressure 117/53 08/27/2024 5:33 PM ENVIRONMENTAL ASSOCIATE Pulse 75 08/27/2024 5:33 PM ENVIRONMENTAL ASSOCIATE Temperature 37 C (98.6 F) 08/27/2024 4:22 PM ENVIRONMENTAL ASSOCIATE Respiratory Rate 16 08/27/2024 4:22 PM ENVIRONMENTAL ASSOCIATE Oxygen Saturation 96% 08/27/2024 4:22 PM ENVIRONMENTAL ASSOCIATE Inhaled Oxygen Concentration - - Weight 63.5 kg (140 lb) 08/23/2024 9:55 PM ENVIRONMENTAL ASSOCIATE Height 165.1 cm (5' 5 ) 08/23/2024 9:55 PM ENVIRONMENTAL ASSOCIATE Body Mass Index 23.3 08/23/2024 9:55 PM ENVIRONMENTAL ASSOCIATE Plan of Treatment Not on file Medical Devices Implanted Type Area Buckle Sorter Device Identifier Shelf Expiration Date Model / Serial / Lot [employer]Rich[employer]/Ort ho Cable Bone Cerclage With Crimp Evos Stainless Steel [id number] - [id number] Implanted:Qty: 1 on 08/24/2024 at [facility] Cable Right: Femur [employer]/ Ortho [id number] / / [employer]/Ort ho Cable Bone Cerclage With Crimp Evos Stainless Steel [id number] - [id number] Implanted:Qty: 1 on 08/24/2024 by Elena Arora MD at [facility] Cable Right: Femur [employer]/ Ortho [id number] / / [employer]Rich[employer]/Ort ho Nail Intramedullary Right 125 Degree Femoral Intertan [id number] Titanium [id number] - [id number] Implanted:Qty: 1 on 08/24/2024 by Elena Arora MD at [facility] Nail Right: Femur [employer]/ Ortho [id number] 10/08/2030 [id number] / / [id number] 14h R Pp Distal Femur Plate Implanted:Qty: 1 on 08/24/2024 by Elena Arora MD at [facility] Plate Right: Femur [employer] [id number] / / Description:Inactive. Michellec c june used [employer]Rich[employer]/Ort ho Intertan 4.5mm 90mm 85mm Lag Compression Integrate Interlock [id number] - [id number] Implanted:Qty: 1 on 08/24/2024 by Elena Arora MD at [facility] Screw Right: Femur [employer]/ Ortho [id number] / / [employer]/Ort ho Screw Bone Locking Femoral Self Tapping Full Thread Low Profile Trigen Stainless Steel 5.0x32.5mm [id number] - [id number] Implanted:Qty: 1 on 08/24/2024 by Elena Arora MD at [facility] Screw Right: Femur [employer]/ Ortho [id number] / / [employer]Rich[employer]/Ort ho 5mm 35mm Low Profile Internal Hex Femur Screw Bone Trigen [id number] - [id number] Implanted:Qty: 1 on 08/24/2024 by Elena Arora MD at [facility] Screw Right: Femur [employer]/ Ortho [id number] / / [employer]Rich[employer]/Ort ho Screw Bone Cortical St Evos 4.5x34mm [id number] - [id number] Implanted:Qty: 2 on 08/24/2024 by Elena Arora MD at [facility] Screw Right: Femur [employer]/ Ortho [id number] / / [employer]Rich[employer]/Ort ho Screw Bone Cortical St Evos 4.5x30mm [id number] - [id number] Implanted:Qty: 2 on 08/24/2024 by Elena Arora MD at [facility] Screw Right: Femur [employer]/ Ortho [id number] / / [employer]Rich[employer]/Ort ho Screw Bone Cortical St Evos 4.5x36mm [id number] - [id number] Implanted:Qty: 1 on 08/24/2024 by Elena Arora MD at [facility] Screw Right: Femur [employer]/ Ortho [id number] / / [employer]Rich[employer]/Ort ho Evos 3.5mm 38mm Self Tap Cortex Screw Bone Sterile [id number] - [id number] Implanted:Qty: 1 on 08/24/2024 by Elena Arora MD at [facility] Screw Right: Femur [employer]/ Ortho [id number] / / [employer]Rich[employer]/Ort ho Evos 4.5mm X 64mm Locking Screw Self-Tapping [id number] - [id number] Implanted:Qty: 2 on 08/24/2024 by Elena Arora MD at [facility] Screw Right: Femur [employer]/ Ortho [id number] / / [employer]Rich[employer]/Ort ho Screw Locking Evos 4.5mm X 60mm Self-Tapping [id number] - [id number] Implanted:Qty: 1 on 08/24/2024 by Elena Arora MD at [facility] Screw Right: Femur [employer]/ Ortho [id number] / / Cypher Cardiac Stent Heart [employer] Inc Catheter Intrathecal Spinal Segment 2 Piece Silicone Ascenda [id number] 8780 - [id number] Implanted:Qty: 1 on 04/02/2024 by Joshua Ramirez MD at [facility] Left: Back Medtronic Inc 03/10/2026 8780 / / [id number] Medtronic Usa [employer] X Pump Infusion Programmable Ulp Ami 20ml Volume 8667-20 - [id number] - [id number] Implanted:Qty: 1 on 04/02/2024 by Joshua Ramirez MD at [facility] Left: Abdomen [employer] X 08/08/2025 8667-20 / [id number] / Medtronic Inc Tyrx 3.35x3in Large Envelope Absorbable Polyarylate Minocycline [id number] - [id number] Implanted:Qty: 1 on 04/02/2024 by Joshua Ramirez MD at [facility] Left: Abdomen Medtronic Inc 11/14/2024 [id number] / / [id number] Medtronic Inc Kit Intrathecal Catheter Revision Segment [place] Removal Ascenda 8785 - [id number] Implanted:Qty: 1 on 04/02/2024 by Joshua Ramirez MD at [facility] Left: Abdomen Medtronic Inc 02/19/2026 8785 / / [id number] [employer]Rich[employer]/Ort ho Screw Bone Cortical St Evos 4.5x28mm [id number] - [id number] Implanted:Qty: 1 on 08/24/2024 by Elena Arora MD at [facility] Right: Femur [employer]/ Ortho [id number] / / [employer]/Ort ho Cable Bone Cerclage With Crimp Evos Stainless Steel [id number] - [id number] Implanted:Qty: 1 on 08/24/2024 at [facility] Right: Femur [employer]/ Ortho [id number] / / 3.5 Non Locking Screw Implanted:Qty: 2 on 08/24/2024 by Elena Arora MD at [facility] Right: Femur [employer] [id number] / / Description:Inactive. Misc c ode used 4.5 Locking Screw Implanted:Qty: 2 on 08/24/2024 by Elena Arora MD at [facility] Right: Femur [employer] [id number] / / Description:Inactive. Misc c ode used Explanted Type Area Buckle Sorter Device Identifier Shelf Expiration Date Model / Serial / Lot [employer]hew/Richco/Orth o Trigen Intertan 11.5mm 38cm Antegrade Intertrochanter Right 125d [id number] - [id number] Explanted:Qty: 1 on 08/24/2024 by Sharan De La Vega MD at [facility] Nail Right: Femur [employer]Rich[employer]/O rtho [id number] 01/08/2028 [id number] / / [id number] [employer]/Rich[employer]/Orth o Screw Bone Cortical St Evos 4.5x34mm [id number] - [id number] Explanted:Qty: 1 on 08/24/2024 at [facility] Screw Right: Femur [employer]/Rich[employer]/O rtho [id number] / / [employer]hew/Richco/Orth o Screw Bone Cortical St Evos 4.5x74mm [id number] - [id number] Explanted:Qty: 1 on 08/24/2024 by Elena Arora MD at [facility] Right: Femur [employer]Rich[employer]/O rtho [id number] / / Procedures Procedure Name Priority Date/Time Associated Diagnosis Comments POCT GLUCOSE DEVICE Routine 08/27/2024 6 :33 PM ENVIRONMENTAL ASSOCIATE POCT GLUCOSE DEVICE Routine 08/27/2024 11:58 AM ENVIRONMENTAL ASSOCIATE POCT GLUCOSE DEVICE Routine 08/27/2024 8 :00 AM ENVIRONMENTAL ASSOCIATE CBC WITHOUT DIFFERENTIAL Routine 08/27/2024 3:20 AM ENVIRONMENTAL ASSOCIATE CBC WITHOUT DIFFERENTIAL Timed 08/27/2024 2:54 AM ENVIRONMENTAL ASSOCIATE TRANSFUSE RED BLOOD CELLS Timed 08/26/2024 11:55 PM ENVIRONMENTAL ASSOCIATE PREPARE RBC Timed 08/26/2024 10:56 PM ENVIRONMENTAL ASSOCIATE EGFR Routine 08/26/2024 9:01 PM ENVIRONMENTAL ASSOCIATE DIFFERENTIAL AUTO Routine 08/26/2024 9:0 1 PM ENVIRONMENTAL ASSOCIATE CBC WITH AUTO DIFFERENTIAL Routine 08/26/2024 9:01 PM ENVIRONMENTAL ASSOCIATE PHOSPHORUS Routine 08/26/2024 9:01 PM ENVIRONMENTAL ASSOCIATE MAGNESIUM Routine 08/26/2024 9:01 PM ENVIRONMENTAL ASSOCIATE BASIC METABOLIC PANEL Routine 08/26/2024 9:01 PM ENVIRONMENTAL ASSOCIATE POCT GLUCOSE DEVICE Routine 08/26/2024 7 :59 PM ENVIRONMENTAL ASSOCIATE POCT GLUCOSE DEVICE Routine 08/26/2024 4 :41 PM ENVIRONMENTAL ASSOCIATE XR HAND RIGHT 1 VIEW IP Routine 08/26/2024 2:21 PM ENVIRONMENTAL ASSOCIATE XR HAND LEFT 3 OR MORE VIEWS IP Routine 08/26/2024 2:21 PM ENVIRONMENTAL ASSOCIATE POCT GLUCOSE DEVICE Routine 08/26/2024 12:22 PM ENVIRONMENTAL ASSOCIATE EGFR Routine 08/26/2024 10:26 AM ENVIRONMENTAL ASSOCIATE BASIC METABOLIC PANEL Routine 08/26/2024 10:26 AM ENVIRONMENTAL ASSOCIATE TYPE AND SCREEN Timed 08/26/2024 10:26 AM ENVIRONMENTAL ASSOCIATE POCT GLUCOSE DEVICE Routine 08/26/2024 8 :12 AM ENVIRONMENTAL ASSOCIATE DIFFERENTIAL AUTO Timed 08/26/2024 5:1 7 AM ENVIRONMENTAL ASSOCIATE CBC WITH AUTO DIFFERENTIAL Timed 08/26/2024 5:17 AM ENVIRONMENTAL ASSOCIATE EGFR Routine 08/26/2024 12:32 AM ENVIRONMENTAL ASSOCIATE DIFFERENTIAL AUTO Timed 08/26/2024 12:32 AM ENVIRONMENTAL ASSOCIATE PHOSPHORUS Routine 08/26/2024 12:32 AM ENVIRONMENTAL ASSOCIATE MAGNESIUM Routine 08/26/2024 12:32 AM ENVIRONMENTAL ASSOCIATE BASIC METABOLIC PANEL Routine 08/26/2024 12:32 AM ENVIRONMENTAL ASSOCIATE CBC WITH AUTO DIFFERENTIAL Timed 08/26/2024 12:32 AM ENVIRONMENTAL ASSOCIATE DIFFERENTIAL AUTO Timed 08/25/2024 11:33 PM ENVIRONMENTAL ASSOCIATE CBC WITH AUTO DIFFERENTIAL Timed 08/25/2024 11:33 PM ENVIRONMENTAL ASSOCIATE ED CRITICAL CARE Routine 08/25/2024 9:45 PM ENVIRONMENTAL ASSOCIATE POCT GLUCOSE DEVICE Routine 08/25/2024 9 :13 PM ENVIRONMENTAL ASSOCIATE POCT GLUCOSE DEVICE Routine 08/25/2024 7 :49 PM ENVIRONMENTAL ASSOCIATE POCT GLUCOSE DEVICE Routine 08/25/2024 5 :55 PM ENVIRONMENTAL ASSOCIATE XR HAND RIGHT 3 OR MORE VIEWS IP Routine 08/25/2024 2:50 PM ENVIRONMENTAL ASSOCIATE XR WRIST RIGHT 3 OR MORE VIEWS IP Routine 08/25/2024 2:50 PM ENVIRONMENTAL ASSOCIATE EGFR Routine 08/25/2024 1:30 PM ENVIRONMENTAL ASSOCIATE DIFFERENTIAL AUTO Timed 08/25/2024 1:3 0 PM ENVIRONMENTAL ASSOCIATE CBC WITH AUTO DIFFERENTIAL Timed 08/25/2024 1:30 PM ENVIRONMENTAL ASSOCIATE PHOSPHORUS Routine 08/25/2024 1:30 PM ENVIRONMENTAL ASSOCIATE MAGNESIUM Routine 08/25/2024 1:30 PM ENVIRONMENTAL ASSOCIATE BASIC METABOLIC PANEL Routine 08/25/2024 1:30 PM ENVIRONMENTAL ASSOCIATE POCT GLUCOSE DEVICE Routine 08/25/2024 11:42 AM ENVIRONMENTAL ASSOCIATE POCT GLUCOSE DEVICE Routine 08/25/2024 8 :10 AM ENVIRONMENTAL ASSOCIATE DIFFERENTIAL AUTO Routine 08/24/2024 11:36 PM ENVIRONMENTAL ASSOCIATE CBC WITH AUTO DIFFERENTIAL Routine 08/24/2024 11:36 PM ENVIRONMENTAL ASSOCIATE POCT GLUCOSE DEVICE Routine 08/24/2024 11:30 PM ENVIRONMENTAL ASSOCIATE POC BLOOD GAS AND CHEMISTRIES, ARTERIAL Routine 08/24/2024 10:52 PM ENVIRONMENTAL ASSOCIATE POC BLOOD GAS AND CHEMISTRIES, ARTERIAL Routine 08/24/2024 10:07 PM ENVIRONMENTAL ASSOCIATE TRANSFUSE RED BLOOD CELLS Timed 08/24/2024 9:44 PM ENVIRONMENTAL ASSOCIATE ANESTHESIA ARTERIAL LINE PLACEMENT Routine 08/24/2024 9:43 PM ENVIRONMENTAL ASSOCIATE PERIPHERAL LINE Routine 08/24/2024 9:43 PM ENVIRONMENTAL ASSOCIATE TRANSFUSE PLASMA Routine 08/24/2024 9:39 PM ENVIRONMENTAL ASSOCIATE TRANSFUSE PLASMA Timed 08/24/2024 9:24 PM ENVIRONMENTAL ASSOCIATE PREPARE PLASMA STAT 08/24/2024 9:19 PM ENVIRONMENTAL ASSOCIATE PREPARE RBC STAT 08/24/2024 9:19 PM ENVIRONMENTAL ASSOCIATE POC BLOOD GAS AND CHEMISTRIES, ARTERIAL Routine 08/24/2024 9:16 PM ENVIRONMENTAL ASSOCIATE POCT PARTIAL THROMBOPLASTIN TIME (PTT) Routine 08/24/2024 9:15 PM ENVIRONMENTAL ASSOCIATE POCT PLATELET COUNT AND HEMATOCRIT Routine 08/24/2024 9:15 PM ENVIRONMENTAL ASSOCIATE POCT PROTHROMBIN TIME Routine 08/24/2024 9:14 PM ENVIRONMENTAL ASSOCIATE PREPARE PLASMA Timed 08/24/2024 9:06 PM ENVIRONMENTAL ASSOCIATE TRANSFUSE RED BLOOD CELLS Timed 08/24/2024 8:57 PM ENVIRONMENTAL ASSOCIATE PREPARE RBC STAT 08/24/2024 8:31 PM ENVIRONMENTAL ASSOCIATE FL FLUOROSCOPY < 1 HOUR IP Routine 08/24/2024 8:00 PM ENVIRONMENTAL ASSOCIATE POCT GLUCOSE DEVICE Routine 08/24/2024 6 :36 PM ENVIRONMENTAL ASSOCIATE SC AN PROCEDURE PLACEHOLDER Routine 08/24/2024 6:22 PM ENVIRONMENTAL ASSOCIATE SC AN ELECTIVE ENDOTRACHEAL AIRWAY Routine 08/24/2024 6:22 PM ENVIRONMENTAL ASSOCIATE REMOVAL/EXCHANGE INTERMEDULLARY NAILING - FEMUR 08/24/2024 5:38 PM ENVIRONMENTAL ASSOCIATE Closed fracture of shaft of right femur, unspecified fracture morphology, initial encounter (HCC) SC AN PROCEDURE PLACEHOLDER Routine 08/24/2024 2:53 PM ENVIRONMENTAL ASSOCIATE B CHECK SAMPLE STAT 08/24/2024 2:14 PM ENVIRONMENTAL ASSOCIATE POCT GLUCOSE DEVICE Routine 08/24/2024 2 :10 PM ENVIRONMENTAL ASSOCIATE POCT GLUCOSE DEVICE Routine 08/24/2024 11:51 AM ENVIRONMENTAL ASSOCIATE EGFR STAT 08/24/2024 9:39 AM ENVIRONMENTAL ASSOCIATE DIFFERENTIAL AUTO STAT 08/24/2024 9:3 9 AM ENVIRONMENTAL ASSOCIATE COMPREHENSIVE METABOLIC PANEL STAT 08/24/2024 9:39 AM ENVIRONMENTAL ASSOCIATE CBC WITH AUTO DIFFERENTIAL STAT 08/24/2024 9:39 AM ENVIRONMENTAL ASSOCIATE PHOSPHORUS STAT 08/24/2024 9:39 AM ENVIRONMENTAL ASSOCIATE MAGNESIUM STAT 08/24/2024 9:39 AM ENVIRONMENTAL ASSOCIATE POCT GLUCOSE DEVICE Routine 08/24/2024 8 :16 AM ENVIRONMENTAL ASSOCIATE POTASSIUM, WHOLE BLOOD Timed 08/24/2024 3:38 AM ENVIRONMENTAL ASSOCIATE POCT GLUCOSE DEVICE Routine 08/23/2024 10:27 PM ENVIRONMENTAL ASSOCIATE POCT GLUCOSE DEVICE Routine 08/23/2024 9 :[address] PELVIS WO CONTRAST ED Urgent/IP Urgent 08/23/2024 7:[address] CERVICAL SPINE WO CONTRAST ED 08/23/2024 5:30 PM ENVIRONMENTAL ASSOCIATE LIPID PANEL STAT 08/23/2024 4:49 PM ENVIRONMENTAL ASSOCIATE EGFR STAT 08/23/2024 4:49 PM ENVIRONMENTAL ASSOCIATE COMPREHENSIVE METABOLIC PANEL STAT 08/23/2024 4:49 PM ENVIRONMENTAL ASSOCIATE SC INJECTION AA&/STRD OTHER PERIPHERAL NERVE/BRANCH Routine 08/23/2024 4:15 PM ENVIRONMENTAL ASSOCIATE XR HIP RIGHT 2 OR 3 VIEWS ED Urgent/IP Urgent 08/23/2024 3:51 PM ENVIRONMENTAL ASSOCIATE XR FEMUR RIGHT 2 OR MORE VIEWS ED Urgent/IP Urgent 08/23/2024 3:35 PM ENVIRONMENTAL ASSOCIATE XR PELVIS 1 OR 2 VIEWS ED 08/23/2024 3:34 PM ENVIRONMENTAL ASSOCIATE XR CHEST 1 VIEW ED 08/23/2024 3:34 PM ENVIRONMENTAL ASSOCIATE DIFFERENTIAL AUTO STAT 08/23/2024 3:0 9 PM ENVIRONMENTAL ASSOCIATE TYPE AND SCREEN STAT 08/23/2024 3:09 PM ENVIRONMENTAL ASSOCIATE CBC WITH AUTO DIFFERENTIAL STAT 08/23/2024 3:09 PM ENVIRONMENTAL ASSOCIATE PROTIME-INR STAT 08/23/2024 3:09 PM ENVIRONMENTAL ASSOCIATE APTT STAT 08/23/2024 3:09 PM ENVIRONMENTAL ASSOCIATE NEURO CT OUTSIDE REFERENCE Routine 08/23/2024 2:36 PM ENVIRONMENTAL ASSOCIATE XR TRANSFER OF OUTSIDE FILMS Routine 08/23/2024 2:33 PM ENVIRONMENTAL ASSOCIATE XR TRANSFER OF OUTSIDE FILMS Routine 08/23/2024 2:30 PM ENVIRONMENTAL ASSOCIATE POCT KETONE, BLOOD Routine 08/23/2024 2: 05 PM ENVIRONMENTAL ASSOCIATE POCT GLUCOSE DEVICE Routine 08/23/2024 2 :04 PM ENVIRONMENTAL ASSOCIATE DEXA AXIAL SKELETON BONE DENSITY 1 OR MORE SITES Schedule Routine, Read Routine (OP Routine) 06/02/2021 3:15 PM CDT Postmenopause HEMOGLOBIN A1C Routine 05/22/2021 9:55 AM CDT Uncontrolled type 2 diabetes mellitus with hyperglycemia (CMS/HCC) (HCC) DIABETIC EYE EXAM Routine 12/10/2020 from Last 3 Months or Most Recently Relevant to Health Maintenance Results * POCT glucose (08/27/2024 6:33 PM ENVIRONMENTAL ASSOCIATE) Glucose, POC 139 70 - 199 mg/dL Blood 08/27/2024 6:33 PM ENVIRONMENTAL ASSOCIATE 08/27/2024 6:33 PM ENVIRONMENTAL ASSOCIATE Tashi Parisi MD LAB POCT ORDERABLES - DEV ICE Final Result Performing Organization Address [facility] Co de Phone Number [facility] Department [place] [address] * (ABNORMAL) POCT glucose (08/27/2024 11:58 AM ENVIRONMENTAL ASSOCIATE) Glucose, POC 203(H) 70 - 199 mg/dL Comment:Glu2: RN/MD Notified Glucose comment 1 Glu2: RN/MD Notified [facility] Blood 08/27/2024 11:5 8 AM ENVIRONMENTAL ASSOCIATE 08/27/2024 11:58 AM ENVIRONMENTAL ASSOCIATE Tashi Parisi MD LAB POCT ORDERABLES - DEV ICE Final Result Performing Organization Address [facility] Co de Phone Number [facility] [place] [address] * POCT glucose (08/27/2024 8:00 AM ENVIRONMENTAL ASSOCIATE) Glucose, POC 146 70 - 199 mg/dL Blood 08/27/2024 8:00 AM ENVIRONMENTAL ASSOCIATE 08/27/2024 8:00 AM ENVIRONMENTAL ASSOCIATE Tashi Parisi MD LAB POCT ORDERABLES - DEV ICE Final Result Performing Organization Address [facility] de Phone Number [facility] Department [place] [address] * (ABNORMAL) CBC without differential (08/27/2024 3:20 AM ENVIRONMENTAL ASSOCIATE) WBC 10.4(H) 3.8 - 9.9 K/cumm Hgb 8.5(L) 11.9 - 15.5 g/dL [facility] Hct 25.9(L) 35.6 - 45.5 % [facility] Plt 171 150 - 400 K/cumm [facility] MPV 9.9 9.1 - 12.3 fL [facility] RBC 2.98(L) 3.90 - 5.20 M/cumm [facility] MCV 86.9 81.3 - 96.4 fL [facility] MCH 28.5 27.1 - 33.3 pg [facility] MCHC 32.8 32.3 - 35.7 g/dL [facility] RDW CV 15.7(H) 11.1 - 14.9 % [facility] RDW SD 49.5(H) 35.7 - 48.1 fL [facility] NRBC abs 0.00 0.00 - 0.01 K/cumm [facility] Blood 08/27/2024 3:20 AM ENVIRONMENTAL ASSOCIATE 08/27/2024 5:04 AM ENVIRONMENTAL ASSOCIATE Tashi Parisi MD LAB BLOOD ORDERABLES Anna l Result Performing Organization Address [facility] Co de Phone Number [facility] [place] [address] * (ABNORMAL) CBC without differential (08/27/2024 2:54 AM ENVIRONMENTAL ASSOCIATE) WBC 10.1(H) 3.8 - 9.9 K/cumm Hgb 8.5(L) 11.9 - 15.5 g/dL [facility] Hct 25.7(L) 35.6 - 45.5 % [facility] Plt 173 150 - 400 K/cumm [facility] MPV 9.8 9.1 - 12.3 fL [facility] RBC 2.92(L) 3.90 - 5.20 M/cumm [facility] MCV 88.0 81.3 - 96.4 fL [facility] MCH 29.1 27.1 - 33.3 pg [facility] MCHC 33.1 32.3 - 35.7 g/dL [facility] RDW CV 15.4(H) 11.1 - 14.9 % [facility] RDW SD 49.6(H) 35.7 - 48.1 fL [facility] NRBC abs 0.00 0.00 - 0.01 K/cumm [facility] Blood 08/27/2024 2:54 AM ENVIRONMENTAL ASSOCIATE 08/27/2024 3:32 AM ENVIRONMENTAL ASSOCIATE Narrative [facility] - 08/27/2024 3:40 AM ENVIRONMENTAL ASSOCIATE 1 hour after transfusion of red blood cells is complete Tashi Parisi MD LAB BLOOD ORDERABLES Anna l Result [facility] [place] [address] * Transfuse RBC (08/27/2024 2:20 AM ENVIRONMENTAL ASSOCIATE) Blood Tashi Parisi MD BLOOD TRANSFUSION ORDERAB LES Final Result Performing Organization Address [facility]/State/ZIP Co de Phone Number [facility] [place] [address] * Prepare RBC: 1 Units (08/26/2024 10:56 PM ENVIRONMENTAL ASSOCIATE) Pathologist [facility] Product code [id number] Unit Number [id number] [facility] Product Blood Type OPOS [facility] Dispense Status PRESUMED TRANSFUSED [facility] Blood 08/26/2024 10:5 6 PM ENVIRONMENTAL ASSOCIATE 08/26/2024 10:57 PM ENVIRONMENTAL ASSOCIATE Narrative [facility] - 08/27/2024 4:01 PM ENVIRONMENTAL ASSOCIATE Are special requirements needed? (All products are leukoreduced and CMV- safe)- >No Date required:-[id number] [facility] # of [id number] Reasons:-Cardiovascular disease, Hgb <8 g/dL} us Tashi Parisi MD BLOOD BANK PRODUCT ORDERA BLES Final Result Performing Organization Address [facility] Co de Phone Number [facility] [place] [address] * (ABNORMAL) eGFR (08/26/2024 9:01 PM ENVIRONMENTAL ASSOCIATE) eGFR 36(L) >=60 mL/min/1. 73 m2 Comment: [...] last reviewed 2021. Blood 08/26/2024 9:01 PM ENVIRONMENTAL ASSOCIATE 08/26/2024 9:42 PM ENVIRONMENTAL ASSOCIATE us Radha Kirk NP LAB BLOOD ORDERABLES Final Result Performing Organization Address [facility] Co de Phone Number [facility] [place] [address] * (ABNORMAL) Differential, auto (08/26/2024 9:01 PM ENVIRONMENTAL ASSOCIATE) Neutrophil abs 7.3(H) 1.5 - 6.5 K/cumm Imm gran abs 0.1 0.0 - 0.1 K/cumm [facility] Lymphocyte abs 1.6 0.8 - 3.3 K/cumm [facility] Monocyte abs 1.0(H) 0.2 - 0.8 K/cumm [facility] Eosinophil abs 0.3 0.0 - 0.5 K/cumm [facility] Basophil abs 0.1 0.0 - 0.1 K/cumm [facility] Neutrophil pct 71.0 % [facility] Comment: Interpretive Data Percent cell count reference ranges are not reported, since discordance with absolute values may lead to misinterpretation of CBC data. Current Interpretive Data was last revised on 2017. Imm gran pct 0.8 % [facility] Comment: Interpretive Data Percent cell count reference ranges are not reported, since discordance with absolute values may lead to misinterpretation of CBC data. Current Interpretive Data was last revised on 2017. Lymphocyte pct 15.4 % [facility] Comment: Interpretive Data Percent cell count reference ranges are not reported, since discordance with absolute values may lead to misinterpretation of CBC data. Current Interpretive Data was last revised on 2017. Monocyte pct 9.5 % [facility] Comment: Interpretive Data Percent cell count reference ranges are not reported, since discordance with absolute values may lead to misinterpretation of CBC data. Current Interpretive Data was last revised on 2017. Eosinophil pct 2.8 % [facility] Comment: Interpretive Data Percent cell count reference ranges are not reported, since discordance with absolute values may lead to misinterpretation of CBC data. Current Interpretive Data was last revised on 2017. Basophil pct 0.5 % [facility] Comment: Interpretive Data Percent cell count reference ranges are not reported, since discordance with absolute values may lead to misinterpretation of CBC data. Current Interpretive Data was last revised on 2017. Blood 08/26/2024 9:01 PM ENVIRONMENTAL ASSOCIATE 08/26/2024 9:42 PM ENVIRONMENTAL ASSOCIATE us Radha Kirk [employer] LAB BLOOD ORDERABLES Final Result Performing Organization Address [facility] Co de Phone Number [facility] [place] [address] * (ABNORMAL) CBC with auto differential (08/26/2024 9:01 PM ENVIRONMENTAL ASSOCIATE) [facility] WBC 10.3(H) 3.8 - 9.9 K/cumm Hgb 7.7(L) 11.9 - 15.5 g/dL [facility] Hct 23.6(L) 35.6 - 45.5 % [facility] Plt 185 150 - 400 K/cumm [facility] MPV 9.8 9.1 - 12.3 fL [facility] RBC 2.61(L) 3.90 - 5.20 M/cumm [facility] MCV 90.4 81.3 - 96.4 fL [facility] MCH 29.5 27.1 - 33.3 pg [facility] MCHC 32.6 32.3 - 35.7 g/dL [facility] RDW CV 15.1(H) 11.1 - 14.9 % [facility] RDW SD 49.7(H) 35.7 - 48.1 fL [facility] NRBC abs 0.00 0.00 - 0.01 K/cumm [facility] Blood 08/26/2024 9:01 PM ENVIRONMENTAL ASSOCIATE 08/26/2024 9:42 PM ENVIRONMENTAL ASSOCIATE Radha Kirk [employer] LAB BLOOD ORDERABLES Final Result [facility] [place] [address] * (ABNORMAL) Phosphorus (08/26/2024 9:01 PM ENVIRONMENTAL ASSOCIATE) Pathologist [facility] Phosphorus, pl 1.6(L) 2.3 - 4.5 mg/dL Blood 08/26/2024 9:01 PM ENVIRONMENTAL ASSOCIATE 08/26/2024 9:42 PM ENVIRONMENTAL ASSOCIATE Radha Kirk [employer] LAB BLOOD ORDERABLES Final Result Performing Organization Address City/[facility]/ZIP Co de Phone Number [facility] [place] [address] * Magnesium (08/26/2024 9:01 PM ENVIRONMENTAL ASSOCIATE) [facility] Magnesium 1.7 1.4 - 2.5 mg/dL Blood 08/26/2024 9:01 PM ENVIRONMENTAL ASSOCIATE 08/26/2024 9:42 PM ENVIRONMENTAL ASSOCIATE Radha Mike Kirk LAB BLOOD ORDERABLES Final Result Performing Organization Address [facility] de Phone Number [facility] [place] [address] * (ABNORMAL) Basic metabolic panel (08/26/2024 9:01 PM ENVIRONMENTAL ASSOCIATE) [facility] Sodium 140 135 - 145 mmol/L Potassium, pl 3.7 3.3 - 4.9 mmol/L [facility] Chloride 111(H) 97 - 110 mmol/L [facility] CO2 21(L) 22 - 32 mmol/L [facility] Anion gap 8 2 - 15 mmol/L [facility] BUN 40(H) 6 - 25 mg/dL [facility] Creatinine 1.43(H) 0.60 - 1.10 mg/dL [facility] Glucose 150 70 - 199 mg/dL [facility] Comment: Interpretive Data Fasting glucose >/= [...] 2022. Calcium 8.4(L) 8.5 - 10.3 mg/dL [facility] Blood 08/26/2024 9:01 PM ENVIRONMENTAL ASSOCIATE 08/26/2024 9:42 PM ENVIRONMENTAL ASSOCIATE us Radha Kirk NP LAB BLOOD ORDERABLES Final Result Performing Organization Address [facility] Co de Phone Number [facility] [place] [address] * POCT glucose (08/26/2024 7:59 PM ENVIRONMENTAL ASSOCIATE) Glucose, POC 168 70 - 199 mg/dL Blood 08/26/2024 7:59 PM ENVIRONMENTAL ASSOCIATE 08/26/2024 7:59 PM ENVIRONMENTAL ASSOCIATE us Tashi Parisi MD LAB POCT ORDERABLES - DEV ICE Final Result Performing Organization Address [facility] Co de Phone Number [facility] [place] [address] * (ABNORMAL) POCT glucose (08/26/2024 4:41 PM ENVIRONMENTAL ASSOCIATE) Glucose, POC 227(H) 70 - 199 mg/dL Comment:Glu2: RN/MD Notified Glucose comment 1 Glu2: RN/MD Notified [facility] Blood 08/26/2024 4:41 PM ENVIRONMENTAL ASSOCIATE 08/26/2024 4:41 PM ENVIRONMENTAL ASSOCIATE us Tashi Parisi MD LAB POCT ORDERABLES - DEV ICE Final Result Performing Organization Address [facility] Co de Phone Number [facility] [place] [address] * XR Hand Right 1 View (08/26/2024 2:21 PM ENVIRONMENTAL ASSOCIATE) Anatomical Region Laterality Modality Hand Right Computed Radiogr aphy 08/26/2024 3:03 PM ENVIRONMENTAL ASSOCIATE Impressions 08/26/2024 3:03 PM ENVIRONMENTAL ASSOCIATE 1. Mild bilateral scapholunate interval widening. This could be further evaluated with clenched fist views of both hands, and dedicated lateral radiographs of both wrists with attention to technique to better evaluate alignment. 2. Bilateral wrists chondrocalcinosis. 3. 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 Electronically signed by: Luis M Rogers D.O. Narrative 08/26/2024 3:03 PM ENVIRONMENTAL ASSOCIATE EXAMINATION: XR HAND LEFT 3 OR MORE VIEWS, XR HAND RIGHT 1 VIEW HISTORY: pain FINDINGS: Comparison is made to 08/25/2024 radiographs of the right hand. Single view evaluation of the right hand with redemonstration of severe base of thumb and [id number] triscaphe osteoarthritis as well as polyarticular interphalangeal [...] redemonstration of severe base of thumb and [id number] triscaphe osteoarthritis as well as polyarticular interphalangeal [...] 3 or More Views (08/26/2024 2:21 PM ENVIRONMENTAL ASSOCIATE) Anatomical Region Laterality Modality Upper Extremities, Hand Left Computed Radiography 08/26/2024 3:03 PM ENVIRONMENTAL ASSOCIATE Impressions 08/26/2024 3:03 PM ENVIRONMENTAL ASSOCIATE 1. Mild bilateral scapholunate interval widening. This could be further evaluated with clenched fist views of both hands, and dedicated lateral radiographs of both wrists with attention to technique to better evaluate alignment. 2. Bilateral wrists chondrocalcinosis. 3. 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 Electronically signed by: Luis M Rogers D.O. Narrative 08/26/2024 3:03 PM ENVIRONMENTAL ASSOCIATE EXAMINATION: XR HAND LEFT 3 OR MORE VIEWS, XR HAND RIGHT 1 VIEW HISTORY: pain FINDINGS: Comparison is made to 08/25/2024 radiographs of the right hand. Single view evaluation of the right hand with redemonstration of severe base of thumb and kiny-hh-nyjexurs triscaphe osteoarthritis as well as polyarticular interphalangeal [...] redemonstration of severe base of thumb and [id number]-[id number] triscaphe osteoarthritis as well as polyarticular interphalangeal [...] by: Luis M Rogers D.O. Radha Kirk [employer] WORK[employer] IMG XR PROCEDURES Fi nal Result * (ABNORMAL) POCT glucose (08/26/2024 12:22 PM ENVIRONMENTAL ASSOCIATE) Glucose, POC 227(H) 70 - 199 mg/dL Comment:Glu2: RN/ Notified Glucose comment 1 Glu2: RN/MD Notified [facility] Blood 08/26/2024 12:2 2 PM ENVIRONMENTAL ASSOCIATE 08/26/2024 12:22 PM ENVIRONMENTAL ASSOCIATE Tashi Parisi MD LAB POCT ORDERABLES - DEV ICE Final Result Performing Organization Address [facility] Co de Phone Number [facility] [place] [address] * (ABNORMAL) eGFR (08/26/2024 10:26 AM ENVIRONMENTAL ASSOCIATE) eGFR 43(L) >=60 mL/min/1. 73 m2 Comment: [...] reviewed 2021. Blood 08/26/2024 10:2 6 AM ENVIRONMENTAL ASSOCIATE 08/26/2024 11:05 AM ENVIRONMENTAL ASSOCIATE Radha Kirk NP LAB BLOOD ORDERABLES Final Result Performing Organization Address [facility] Co de Phone Number [facility] [place] [address] * Type and screen (08/26/2024 10:26 AM ENVIRONMENTAL ASSOCIATE) Markos, indirect Negative ABO Rh O Positive [facility] Blood 08/26/2024 10:2 6 AM ENVIRONMENTAL ASSOCIATE 08/26/2024 10:51 AM ENVIRONMENTAL ASSOCIATE Narrative [facility] - 08/26/2024 12:15 PM ENVIRONMENTAL ASSOCIATE Has the patient had Daratumumab or Isatuximab in the past 6 months?->Unknown Radha Kirk [employer] LAB BLOOD BANK TEST ORDERABLES Final Result [facility] [place] [address] * (ABNORMAL) Basic metabolic panel (08/26/2024 10:26 AM ENVIRONMENTAL ASSOCIATE) [facility] Sodium 141 135 - 145 mmol/L Potassium, pl 3.4 3.3 - 4.9 mmol/L [facility] Chloride 109 97 - 110 mmol/L [facility] CO2 23 22 - 32 mmol/L [facility] Anion gap 9 2 - 15 mmol/L [facility] BUN 37(H) 6 - 25 mg/dL [facility] Creatinine 1.23(H) 0.60 - 1.10 mg/dL [facility] Glucose 235(H) 70 - 199 mg/dL [facility] Comment: Interpretive Data Fasting glucose >/= [...] 2022. Calcium 8.9 8.5 - 10.3 mg/dL [facility] Blood 08/26/2024 10:2 6 AM ENVIRONMENTAL ASSOCIATE 08/26/2024 10:48 AM ENVIRONMENTAL ASSOCIATE Radha Kirk [employer] LAB BLOOD ORDERABLES Final Result Performing Organization Address City/[facility]/ZIP Co de Phone Number [facility] [place] [address] * POCT glucose (08/26/2024 8:12 AM ENVIRONMENTAL ASSOCIATE) Glucose, POC 163 70 - 199 mg/dL Blood 08/26/2024 8:12 AM ENVIRONMENTAL ASSOCIATE 08/26/2024 8:12 AM ENVIRONMENTAL ASSOCIATE Tashi Parisi MD LAB POCT ORDERABLES - DEV ICE Final Result [facility] [place] [address] * (ABNORMAL) Differential, auto (08/26/2024 5:17 AM ENVIRONMENTAL ASSOCIATE) Pathologist [facility] Neutrophil abs 7.3(H) 1.5 - 6.5 K/cumm Imm gran abs 0.0 0.0 - 0.1 K/cumm [facility] Lymphocyte abs 1.6 0.8 - 3.3 K/cumm [facility] Monocyte abs 1.1(H) 0.2 - 0.8 K/cumm [facility] Eosinophil abs 0.2 0.0 - 0.5 K/cumm [facility] Basophil abs 0.1 0.0 - 0.1 K/cumm [facility] Neutrophil pct 70.9 % [facility] Comment: Interpretive Data Percent cell count reference ranges are not reported, since discordance with absolute values may lead to misinterpretation of CBC data. Current Interpretive Data was last revised on 2017. Imm gran pct 0.4 % [facility] Comment: Interpretive Data Percent cell count reference ranges are not reported, since discordance with absolute values may lead to misinterpretation of CBC data. Current Interpretive Data was last revised on 2017. Lymphocyte pct 15.2 % [facility] Comment: Interpretive Data Percent cell count reference ranges are not reported, since discordance with absolute values may lead to misinterpretation of CBC data. Current Interpretive Data was last revised on 2017. Monocyte pct 11.0 % [facility] Comment: Interpretive Data Percent cell count reference ranges are not reported, since discordance with absolute values may lead to misinterpretation of CBC data. Current Interpretive Data was last revised on 2017. Eosinophil pct 1.9 % [facility] Comment: Interpretive Data Percent cell count reference ranges are not reported, since discordance with absolute values may lead to misinterpretation of CBC data. Current Interpretive Data was last revised on 2017. Basophil pct 0.6 % [facility] Comment: Interpretive Data Percent cell count reference ranges are not reported, since discordance with absolute values may lead to misinterpretation of CBC data. Current Interpretive Data was last revised on 2017. Blood 08/26/2024 5:1 7 AM ENVIRONMENTAL ASSOCIATE 08/26/2024 5:24 AM ENVIRONMENTAL ASSOCIATE us Radha Kirk NP LAB BLOOD ORDERABLES Final Result [facility] [place] [address] * (ABNORMAL) CBC with auto differential (08/26/2024 5:17 AM ENVIRONMENTAL ASSOCIATE) WBC 10.2(H) 3.8 - 9.9 K/cumm Hgb 8.5(L) 11.9 - 15.5 g/dL [facility] Hct 25.5(L) 35.6 - 45.5 % [facility] Plt 166 150 - 400 K/cumm [facility] MPV 9.4 9.1 - 12.3 fL [facility] RBC 2.92(L) 3.90 - 5.20 M/cumm [facility] MCV 87.3 81.3 - 96.4 fL [facility] MCH 29.1 27.1 - 33.3 pg [facility] MCHC 33.3 32.3 - 35.7 g/dL [facility] RDW CV 15.0(H) 11.1 - 14.9 % [facility] RDW SD 47.7 35.7 - 48.1 fL [facility] NRBC abs 0.00 0.00 - 0.01 K/cumm [facility] Blood 08/26/2024 5:17 AM ENVIRONMENTAL ASSOCIATE 08/26/2024 5:24 AM ENVIRONMENTAL ASSOCIATE Radha Kirk [employer] LAB BLOOD ORDERABLES Final Result Performing Organization Address City/[facility] Co de Phone Number [facility] [place] [address] * (ABNORMAL) eGFR (08/26/2024 12:32 AM ENVIRONMENTAL ASSOCIATE) Pathologist [facility] eGFR 34(L) >=60 mL/min/1. 73 m2 Comment: [...] reviewed 2021. Blood 08/26/2024 12:3 2 AM ENVIRONMENTAL ASSOCIATE 08/26/2024 12:47 AM ENVIRONMENTAL ASSOCIATE Radha Kirk [employer] LAB BLOOD ORDERABLES Final Result Performing Organization Address City/[facility]/ZIP Co de Phone Number [facility] [place] [address] * (ABNORMAL) Differential, auto (08/26/2024 12:32 AM ENVIRONMENTAL ASSOCIATE) Pathologist [facility] Neutrophil abs 7.7(H) 1.5 - 6.5 K/cumm Imm gran abs 0.0 0.0 - 0.1 K/cumm [facility] Lymphocyte abs 1.7 0.8 - 3.3 K/cumm [facility] Monocyte abs 1.4(H) 0.2 - 0.8 K/cumm [facility] Eosinophil abs 0.1 0.0 - 0.5 K/cumm [facility] Basophil abs 0.0 0.0 - 0.1 K/cumm [facility] Neutrophil pct 69.5 % [facility] Comment: Interpretive Data Percent cell count reference ranges are not reported, since discordance with absolute values may lead to misinterpretation of CBC data. Current Interpretive Data was last revised on 2017. Imm gran pct 0.4 % [facility] Comment: Interpretive Data Percent cell count reference ranges are not reported, since discordance with absolute values may lead to misinterpretation of CBC data. Current Interpretive Data was last revised on 2017. Lymphocyte pct 15.8 % [facility] Comment: Interpretive Data Percent cell count reference ranges are not reported, since discordance with absolute values may lead to misinterpretation of CBC data. Current Interpretive Data was last revised on 2017. Monocyte pct 12.7 % [facility] Comment: Interpretive Data Percent cell count reference ranges are not reported, since discordance with absolute values may lead to misinterpretation of CBC data. Current Interpretive Data was last revised on 2017. Eosinophil pct 1.2 % [facility] Comment: Interpretive Data Percent cell count reference ranges are not reported, since discordance with absolute values may lead to misinterpretation of CBC data. Current Interpretive Data was last revised on 2017. Basophil pct 0.4 % [facility] Comment: Interpretive Data Percent cell count reference ranges are not reported, since discordance with absolute values may lead to misinterpretation of CBC data. Current Interpretive Data was last revised on 2017. Blood 08/26/2024 12:3 2 AM ENVIRONMENTAL ASSOCIATE 08/26/2024 12:47 AM ENVIRONMENTAL ASSOCIATE us Radha Kirk NP LAB BLOOD ORDERABLES Final Result [facility] [place] [address] * (ABNORMAL) CBC with auto differential (08/26/2024 12:32 AM ENVIRONMENTAL ASSOCIATE) [facility] WBC 11.0(H) 3.8 - 9.9 K/cumm Hgb 8.3(L) 11.9 - 15.5 g/dL [facility] Hct 24.8(L) 35.6 - 45.5 % [facility] Plt 157 150 - 400 K/cumm [facility] MPV 10.1 9.1 - 12.3 fL [facility] RBC 2.80(L) 3.90 - 5.20 M/cumm [facility] MCV 88.6 81.3 - 96.4 fL [facility] MCH 29.6 27.1 - 33.3 pg [facility] MCHC 33.5 32.3 - 35.7 g/dL [facility] RDW CV 14.9 11.1 - 14.9 % [facility] RDW SD 48.0 35.7 - 48.1 fL [facility] NRBC abs 0.00 0.00 - 0.01 K/cumm [facility] Blood 08/26/2024 12:3 2 AM ENVIRONMENTAL ASSOCIATE 08/26/2024 12:47 AM ENVIRONMENTAL ASSOCIATE Radha Kirk [employer] LAB BLOOD ORDERABLES Final Result Performing Organization Address [facility] Co de Phone Number [facility] [place] [address] * (ABNORMAL) Phosphorus (08/26/2024 12:32 AM ENVIRONMENTAL ASSOCIATE) [facility] Phosphorus, pl 2.2(L) 2.3 - 4.5 mg/dL Blood 08/26/2024 12:3 2 AM ENVIRONMENTAL ASSOCIATE 08/26/2024 12:47 AM ENVIRONMENTAL ASSOCIATE Radha Kirk [employer] LAB BLOOD ORDERABLES Final Result Performing Organization Address City/[facility]/ZIP Co de Phone Number [facility] [place], [place] [address] * Magnesium (08/26/2024 12:32 AM ENVIRONMENTAL ASSOCIATE) Pathologist [facility] Magnesium 1.8 1.4 - 2.5 mg/dL Blood 08/26/2024 12:3 2 AM ENVIRONMENTAL ASSOCIATE 08/26/2024 12:47 AM ENVIRONMENTAL ASSOCIATE Radha Kirk [employer] LAB BLOOD ORDERABLES Final Result [facility] [place] [address] * (ABNORMAL) Basic metabolic panel (08/26/2024 12:32 AM ENVIRONMENTAL ASSOCIATE) [facility] Sodium 136 135 - 145 mmol/L Potassium, pl 3.5 3.3 - 4.9 mmol/L [facility] Chloride 110 97 - 110 mmol/L [facility] CO2 19(L) 22 - 32 mmol/L [facility] Anion gap 7 2 - 15 mmol/L [facility] BUN 45(H) 6 - 25 mg/dL [facility] Creatinine 1.50(H) 0.60 - 1.10 mg/dL [facility] Glucose 139 70 - 199 mg/dL [facility] Comment: Interpretive Data Fasting glucose >/= [...] 2022. Calcium 8.6 8.5 - 10.3 mg/dL [facility] Blood 08/26/2024 12:3 2 AM ENVIRONMENTAL ASSOCIATE 08/26/2024 12:47 AM ENVIRONMENTAL ASSOCIATE Radha Kirk [employer] LAB BLOOD ORDERABLES Final Result [facility] [place] [address] * (ABNORMAL) Differential, auto (08/25/2024 11:33 PM ENVIRONMENTAL ASSOCIATE) Neutrophil abs 7.5(H) 1.5 - 6.5 K/cumm Imm gran abs 0.1 0.0 - 0.1 K/cumm [facility] Lymphocyte abs 1.7 0.8 - 3.3 K/cumm [facility] Monocyte abs 1.4(H) 0.2 - 0.8 K/cumm [facility] Eosinophil abs 0.1 0.0 - 0.5 K/cumm [facility] Basophil abs 0.0 0.0 - 0.1 K/cumm [facility] Neutrophil pct 69.0 % [facility] Comment: Interpretive Data Percent cell count reference ranges are not reported, since discordance with absolute values may lead to misinterpretation of CBC data. Current Interpretive Data was last revised on 2017. Imm gran pct 0.7 % [facility] Comment: Interpretive Data Percent cell count reference ranges are not reported, since discordance with absolute values may lead to misinterpretation of CBC data. Current Interpretive Data was last revised on 2017. Lymphocyte pct 16.0 % [facility] Comment: Interpretive Data Percent cell count reference ranges are not reported, since discordance with absolute values may lead to misinterpretation of CBC data. Current Interpretive Data was last revised on 2017. Monocyte pct 12.7 % [facility] Comment: Interpretive Data Percent cell count reference ranges are not reported, since discordance with absolute values may lead to misinterpretation of CBC data. Current Interpretive Data was last revised on 2017. Eosinophil pct 1.2 % [facility] Comment: Interpretive Data Percent cell count reference ranges are not reported, since discordance with absolute values may lead to misinterpretation of CBC data. Current Interpretive Data was last revised on 2017. Basophil pct 0.4 % [facility] Comment: Interpretive Data Percent cell count reference ranges are not reported, since discordance with absolute values may lead to misinterpretation of CBC data. Current Interpretive Data was last revised on 2017. Blood 08/25/2024 11:3 3 PM ENVIRONMENTAL ASSOCIATE 08/26/2024 12:47 AM ENVIRONMENTAL ASSOCIATE us Radha Kirk [employer] LAB BLOOD ORDERABLES Final Result [facility] Department [place] [address] * (ABNORMAL) CBC with auto differential (08/25/2024 11:33 PM ENVIRONMENTAL ASSOCIATE) Pathologist [facility] WBC 10.9(H) 3.8 - 9.9 K/cumm Hgb 8.2(L) 11.9 - 15.5 g/dL [facility] Hct 25.1(L) 35.6 - 45.5 % [facility] Plt 160 150 - 400 K/cumm [facility] MPV 9.9 9.1 - 12.3 fL [facility] RBC 2.83(L) 3.90 - 5.20 M/cumm [facility] MCV 88.7 81.3 - 96.4 fL [facility] MCH 29.0 27.1 - 33.3 pg [facility] MCHC 32.7 32.3 - 35.7 g/dL [facility] RDW CV 14.9 11.1 - 14.9 % [facility] RDW SD 48.1 35.7 - 48.1 fL [facility] NRBC abs 0.00 0.00 - 0.01 K/cumm [facility] Blood 08/25/2024 11:3 3 PM ENVIRONMENTAL ASSOCIATE 08/26/2024 12:47 AM ENVIRONMENTAL ASSOCIATE us Radha Kirk [employer] LAB BLOOD ORDERABLES Final Result [facility] [place] [address] * Critical Care (08/25/2024 9:45 PM ENVIRONMENTAL ASSOCIATE) Narrative Felice Goyal MD - 08/25/2024 9:45 PM ENVIRONMENTAL ASSOCIATE Felice Goyal MD 08/25/2024 9:46 PM Critical [...] Result * POCT glucose (08/25/2024 9:13 PM ENVIRONMENTAL ASSOCIATE) Glucose, POC 194 70 - 199 mg/dL Blood 08/25/2024 9:13 PM ENVIRONMENTAL ASSOCIATE 08/25/2024 9:13 PM ENVIRONMENTAL ASSOCIATE us Tashi Parisi MD LAB POCT ORDERABLES - DEV ICE Final Result [facility] Department [place] [address] * (ABNORMAL) POCT glucose (08/25/2024 7:49 PM ENVIRONMENTAL ASSOCIATE) Glucose, POC 238(H) 70 - 199 mg/dL Blood 08/25/2024 7:49 PM ENVIRONMENTAL ASSOCIATE 08/25/2024 7:49 PM ENVIRONMENTAL ASSOCIATE Tashi Parisi MD LAB POCT ORDERABLES - DEV ICE Final Result Performing Organization Address [facility] de Phone Number [facility] [place] [address] * POCT glucose (08/25/2024 5:55 PM ENVIRONMENTAL ASSOCIATE) Glucose, POC 150 70 - 199 mg/dL Blood 08/25/2024 5:55 PM ENVIRONMENTAL ASSOCIATE 08/25/2024 5:55 PM ENVIRONMENTAL ASSOCIATE Tashi Parisi MD LAB POCT ORDERABLES - DEV ICE Final Result Performing Organization Address [facility] Phone Number [facility] [place] [address] * XR Hand Right 3 or More Views (08/25/2024 2:50 PM ENVIRONMENTAL ASSOCIATE) Anatomical Region Laterality Modality Upper Extremities, Hand Right Computed Radiography 08/25/2024 4:42 PM ENVIRONMENTAL ASSOCIATE Impressions 08/25/2024 4:55 PM ENVIRONMENTAL ASSOCIATE 1. 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 2. Mild scapholunate interval widening. Dictated by: Carlos Min MD The radiology attending physician has personally reviewed this study, and had reviewed and/or edited this written report and agrees with it. Electronically signed by: Félix Burdick M.D. Narrative 08/25/2024 4:55 PM ENVIRONMENTAL ASSOCIATE EXAMINATION: XR WRIST RIGHT 3 OR MORE [...] signed by: Félix Burdick M.D. Radha Kirk [employer] WORKER IMG XR PROCEDURES Fi nal Result * XR Wrist Right 3 or More Views (08/25/2024 2:50 PM ENVIRONMENTAL ASSOCIATE) Anatomical Region Laterality Modality Upper Extremities, Wrist Right Compute d Radiography 08/25/2024 4:42 PM ENVIRONMENTAL ASSOCIATE Impressions 08/25/2024 4:55 PM ENVIRONMENTAL ASSOCIATE 1. 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 2. Mild scapholunate interval widening. Dictated by: Carlos Min MD The radiology attending physician has personally reviewed this study, and had reviewed and/or edited this written report and agrees with it. Electronically signed by: Félix Burdick M.D. Narrative 08/25/2024 4:55 PM ENVIRONMENTAL ASSOCIATE EXAMINATION: XR WRIST RIGHT 3 OR MORE [...] by: Félix Burdick M.D. us Radha Kirk [employer] WORKER IMG XR PROCEDURES Fi nal Result * (ABNORMAL) eGFR (08/25/2024 1:30 PM ENVIRONMENTAL ASSOCIATE) eGFR 35(L) >=60 mL/min/1. 73 m2 Comment: [...] last reviewed 2021. Blood 08/25/2024 1:30 PM ENVIRONMENTAL ASSOCIATE 08/25/2024 2:39 PM ENVIRONMENTAL ASSOCIATE us Felice Goyal MD LAB BLOOD ORDERABLES F inal Result [facility] [place] [address] * (ABNORMAL) Differential, auto (08/25/2024 1:30 PM ENVIRONMENTAL ASSOCIATE) Neutrophil abs 7.8(H) 1.5 - 6.5 K/cumm Imm gran abs 0.1 0.0 - 0.1 K/cumm [facility] Lymphocyte abs 1.2 0.8 - 3.3 K/cumm [facility] Monocyte abs 0.9(H) 0.2 - 0.8 K/cumm [facility] Eosinophil abs 0.0 0.0 - 0.5 K/cumm [facility] Basophil abs 0.0 0.0 - 0.1 K/cumm [facility] Neutrophil pct 78.3 % [facility] Comment: Interpretive Data Percent cell count reference ranges are not reported, since discordance with absolute values may lead to misinterpretation of CBC data. Current Interpretive Data was last revised on 2017. Imm gran pct 0.6 % [facility] Comment: Interpretive Data Percent cell count reference ranges are not reported, since discordance with absolute values may lead to misinterpretation of CBC data. Current Interpretive Data was last revised on 2017. Lymphocyte pct 12.0 % [facility] Comment: Interpretive Data Percent cell count reference ranges are not reported, since discordance with absolute values may lead to misinterpretation of CBC data. Current Interpretive Data was last revised on 2017. Monocyte pct 8.9 % [facility] Comment: Interpretive Data Percent cell count reference ranges are not reported, since discordance with absolute values may lead to misinterpretation of CBC data. Current Interpretive Data was last revised on 2017. Eosinophil pct 0.0 % [facility] Comment: Interpretive Data Percent cell count reference ranges are not reported, since discordance with absolute values may lead to misinterpretation of CBC data. Current Interpretive Data was last revised on 2017. Basophil pct 0.2 % [facility] Comment: Interpretive Data Percent cell count reference ranges are not reported, since discordance with absolute values may lead to misinterpretation of CBC data. Current Interpretive Data was last revised on 2017. Blood 08/25/2024 1:30 PM ENVIRONMENTAL ASSOCIATE 08/25/2024 2:38 PM ENVIRONMENTAL ASSOCIATE us Radha Kirk [employer] LAB BLOOD ORDERABLES Final Result Performing Organization Address City/[facility]/ZIP Co de Phone Number [facility] [place] [address] * (ABNORMAL) CBC with auto differential (08/25/2024 1:30 PM ENVIRONMENTAL ASSOCIATE) WBC 10.0(H) 3.8 - 9.9 K/cumm Hgb 8.6(L) 11.9 - 15.5 g/dL [facility] Hct 26.5(L) 35.6 - 45.5 % [facility] Plt 168 150 - 400 K/cumm [facility] MPV 10.2 9.1 - 12.3 fL [facility] RBC 2.94(L) 3.90 - 5.20 M/cumm [facility] MCV 90.1 81.3 - 96.4 fL [facility] MCH 29.3 27.1 - 33.3 pg [facility] MCHC 32.5 32.3 - 35.7 g/dL [facility] RDW CV 14.7 11.1 - 14.9 % [facility] RDW SD 48.7(H) 35.7 - 48.1 fL [facility] NRBC abs 0.00 0.00 - 0.01 K/cumm [facility] Blood 08/25/2024 1:30 PM ENVIRONMENTAL ASSOCIATE 08/25/2024 2:38 PM ENVIRONMENTAL ASSOCIATE us Radha Kirk [employer] LAB BLOOD ORDERABLES Final Result Performing Organization Address City/[facility]/ZIP Co de Phone Number [facility] [place] [address] * Phosphorus (08/25/2024 1:30 PM ENVIRONMENTAL ASSOCIATE) [facility] Phosphorus, pl 3.5 2.3 - 4.5 mg/dL Blood 08/25/2024 1:30 PM ENVIRONMENTAL ASSOCIATE 08/25/2024 2:38 PM ENVIRONMENTAL ASSOCIATE Sharan De La Vega MD LAB BLOOD ORDERABLES Fin al Result Performing Organization Address City/[facility] Co de Phone Number [facility] [place] [address] * Magnesium (08/25/2024 1:30 PM ENVIRONMENTAL ASSOCIATE) [facility] Magnesium 1.6 1.4 - 2.5 mg/dL Blood 08/25/2024 1:30 PM ENVIRONMENTAL ASSOCIATE 08/25/2024 2:38 PM ENVIRONMENTAL ASSOCIATE Sharan De La Vega MD LAB BLOOD ORDERABLES Fin al Result Performing Organization Address [facility] de Phone Number [facility] Department [place] [address] * (ABNORMAL) Basic metabolic panel (08/25/2024 1:30 PM ENVIRONMENTAL ASSOCIATE) [facility] Sodium 138 135 - 145 mmol/L Potassium, pl 4.4 3.3 - 4.9 mmol/L [facility] Chloride 109 97 - 110 mmol/L [facility] CO2 19(L) 22 - 32 mmol/L [facility] Anion gap 10 2 - 15 mmol/L [facility] BUN 39(H) 6 - 25 mg/dL [facility] Creatinine 1.46(H) 0.60 - 1.10 mg/dL [facility] Glucose 214(H) 70 - 199 mg/dL [facility] Comment: Interpretive Data Fasting glucose >/= [...] 2022. Calcium 8.6 8.5 - 10.3 mg/dL [facility] Blood 08/25/2024 1:30 PM ENVIRONMENTAL ASSOCIATE 08/25/2024 2:38 PM ENVIRONMENTAL ASSOCIATE us Sharan De La Vega MD LAB BLOOD ORDERABLES Fin al Result Performing Organization Address [facility] Co de Phone Number [facility] [place] [address] * (ABNORMAL) POCT glucose (08/25/2024 11:42 AM ENVIRONMENTAL ASSOCIATE) Glucose, POC 206(H) 70 - 199 mg/dL Blood 08/25/2024 11:4 2 AM ENVIRONMENTAL ASSOCIATE 08/25/2024 11:42 AM ENVIRONMENTAL ASSOCIATE Tashi Parisi MD LAB POCT ORDERABLES - DEV ICE Final Result Performing Organization Address [facility] de Phone Number [facility] [place] [address] * (ABNORMAL) POCT glucose (08/25/2024 8:10 AM ENVIRONMENTAL ASSOCIATE) Glucose, POC 237(H) 70 - 199 mg/dL Blood 08/25/2024 8:10 AM ENVIRONMENTAL ASSOCIATE 08/25/2024 8:10 AM ENVIRONMENTAL ASSOCIATE Tashi Parisi MD LAB POCT ORDERABLES - DEV ICE Final Result Performing Organization Address [facility] de Phone Number [facility] Department [place] [address] * (ABNORMAL) Differential, auto (08/24/2024 11:36 PM ENVIRONMENTAL ASSOCIATE) Pathologist [facility] Neutrophil abs 12.8(H) 1.5 - 6.5 K/cumm Imm gran abs 0.1 0.0 - 0.1 K/cumm [facility] Lymphocyte abs 0.9 0.8 - 3.3 K/cumm [facility] Monocyte abs 2.1(H) 0.2 - 0.8 K/cumm [facility] Eosinophil abs 0.0 0.0 - 0.5 K/cumm [facility] Basophil abs 0.1 0.0 - 0.1 K/cumm [facility] Neutrophil pct 80.3 % [facility] Comment: Interpretive Data Percent cell count reference ranges are not reported, since discordance with absolute values may lead to misinterpretation of CBC data. Current Interpretive Data was last revised on 2017. Imm gran pct 0.4 % [facility] Comment: Interpretive Data Percent cell count reference ranges are not reported, since discordance with absolute values may lead to misinterpretation of CBC data. Current Interpretive Data was last revised on 2017. Lymphocyte pct 5.6 % [facility] Comment: Interpretive Data Percent cell count reference ranges are not reported, since discordance with absolute values may lead to misinterpretation of CBC data. Current Interpretive Data was last revised on 2017. Monocyte pct 13.3 % [facility] Comment: Interpretive Data Percent cell count reference ranges are not reported, since discordance with absolute values may lead to misinterpretation of CBC data. Current Interpretive Data was last revised on 2017. Eosinophil pct 0.1 % [facility] Comment: Interpretive Data Percent cell count reference ranges are not reported, since discordance with absolute values may lead to misinterpretation of CBC data. Current Interpretive Data was last revised on 2017. Basophil pct 0.3 % [facility] Comment: Interpretive Data Percent cell count reference ranges are not reported, since discordance with absolute values may lead to misinterpretation of CBC data. Current Interpretive Data was last revised on 2017. Blood 08/24/2024 11:3 6 PM ENVIRONMENTAL ASSOCIATE 08/24/2024 11:46 PM ENVIRONMENTAL ASSOCIATE us Davina Mckeon MD LAB BLOOD ORDERABLES Final Resul t Performing Organization Address [facility] de Phone Number [facility] Department [place] [address] * (ABNORMAL) CBC with auto differential (08/24/2024 11:36 PM ENVIRONMENTAL ASSOCIATE) [facility] WBC 16.0(H) 3.8 - 9.9 K/cumm Hgb 10.6(L) 11.9 - 15.5 g/dL [facility] Hct 32.6(L) 35.6 - 45.5 % [facility] Plt 218 150 - 400 K/cumm [facility] MPV 9.3 9.1 - 12.3 fL [facility] RBC 3.67(L) 3.90 - 5.20 M/cumm [facility] MCV 88.8 81.3 - 96.4 fL [facility] MCH 28.9 27.1 - 33.3 pg [facility] MCHC 32.5 32.3 - 35.7 g/dL [facility] RDW CV 14.5 11.1 - 14.9 % [facility] RDW SD 47.5 35.7 - 48.1 fL [facility] NRBC abs 0.00 0.00 - 0.01 K/cumm [facility] Blood 08/24/2024 11:3 6 PM ENVIRONMENTAL ASSOCIATE 08/24/2024 11:46 PM ENVIRONMENTAL ASSOCIATE Davina Mckeon MD LAB BLOOD ORDERABLES Final Resul t Performing Organization Address [facility] Co de Phone Number [facility] [place] [address] * (ABNORMAL) POCT glucose (08/24/2024 11:30 PM ENVIRONMENTAL ASSOCIATE) Pathologist [facility] Glucose, POC 202(H) 70 - 199 mg/dL Blood 08/24/2024 11:3 0 PM ENVIRONMENTAL ASSOCIATE 08/24/2024 11:30 PM ENVIRONMENTAL ASSOCIATE Tashi Parisi MD LAB POCT ORDERABLES - DEV ICE Final Result [facility] [place] [address] * (ABNORMAL) POC Blood Gas and Chemistries, Arterial - (08/24/2024 10:52 PM ENVIRONMENTAL ASSOCIATE) pH, Art POC 7.22(L) 7.35 - 7.45 pCO2, Art POC 41 35 - 45 mmHg [facility] pO2, Art POC 160(H) 83 - 108 mmHg [facility] Na, POC 145 135 - 145 mmol/L [facility] K POC 3.3 3.3 - 4.9 mmol/L [facility] Comment: Interpretive Data Not all point of care methods assess for hemolysis. Confirm with instrument and retest K+ if not consistent with clinical signs and symptoms. Current Interpretive Data was last revised on 2023. Cl, POC 119(H) 97 - 110 mmol/L [facility] Ionized Ca, POC 5.79(H) 4.50 - 5.10 mg/dL [facility] Glucose, POC 234(H) 70 - 199 mg/dL [facility] Lactate, POC 3.0(H) 0.7 - 2.2 mmol/L [facility] SO2 (nasra) arterial 99(H) 90 - 95 % [facility] Base excess, POC -10.3 mmol/L [facility] HCO3, Art POC 17(L) 20 - 30 mmol/L [facility] Hct, POC 30.0(L) 36.3 - 45.3 % [facility] Total Hb, POC 10.1(L) 11.9 - 15.5 g/dL [facility] Blood 08/24/2024 10:5 2 PM ENVIRONMENTAL ASSOCIATE 08/24/2024 10:52 PM ENVIRONMENTAL ASSOCIATE Tashi Parisi MD LAB POCT ORDERABLES - DEV ICE Final Result [facility] [place] [address] * (ABNORMAL) POC Blood Gas and Chemistries, Arterial - (08/24/2024 10:07 PM ENVIRONMENTAL ASSOCIATE) pH, Art POC 7.26(L) 7.35 - 7.45 pCO2, Art POC 38 35 - 45 mmHg [facility] pO2, Art POC 164(H) 83 - 108 mmHg [facility] Na, POC 144 135 - 145 mmol/L [facility] K POC 3.9 3.3 - 4.9 mmol/L [facility] Comment: Interpretive Data Not all point of care methods assess for hemolysis. Confirm with instrument and retest K+ if not consistent with clinical signs and symptoms. Current Interpretive Data was last revised on 2023. Cl, POC 118(H) 97 - 110 mmol/L [facility] Ionized Ca, POC 5.86(H) 4.50 - 5.10 mg/dL [facility] Glucose, POC 265(H) 70 - 199 mg/dL [facility] Lactate, POC 2.8(H) 0.7 - 2.2 mmol/L [facility] SO2 (nasra) arterial 99(H) 90 - 95 % [facility] Base excess, POC -9.3 mmol/L [facility] HCO3, Art POC 17(L) 20 - 30 mmol/L [facility] Hct, POC 31.0(L) 36.3 - 45.3 % [facility] Total Hb, POC 10.4(L) 11.9 - 15.5 g/dL [facility] Blood 08/24/2024 10:0 7 PM ENVIRONMENTAL ASSOCIATE 08/24/2024 10:07 PM ENVIRONMENTAL ASSOCIATE Tashi Parisi MD LAB POCT ORDERABLES - DEV ICE Final Result [facility] [place] [address] * Transfuse RBC (08/24/2024 9:45 PM ENVIRONMENTAL ASSOCIATE) Blood us Davina Mckeon MD BLOOD TRANSFUSION ORDERABLES Fin al Result [facility] [place] [address] * Arterial Line (08/24/2024 9:43 PM ENVIRONMENTAL ASSOCIATE) Narrative Ashok Santa MD - 08/24/2024 9:43 PM ENVIRONMENTAL ASSOCIATE Ashok Santa MD 08/24/2024 9:44 PM Arterial Line Patient location: [place] End time: 08/24/2024 8:55 PM Indication: continuous blood pressure monitoring, blood sampling needed and unable to use non-invasive cuff Ultrasound assisted: yes Staff: Supervising provider: Davina Mckeon MD Placed by: Resident: Ashok Santa MD Procedure prep: Prep solution: chlorhexadine/alcohol Prep: provider hat/mask and sterile gloves Arterial line: Catheter size: 3 Chinese Catheter length: 8 cm Catheter type: wire-guided catheter Seldinger technique: yes Laterality: left Site: radial artery Line secured: Tegaderm and tape Results: good waveform and good blood return Number of attempts: 1 Assessment: Events: patient tolerated procedure well with no complications us Davina Mckeon MD ANESTHESIA ORDERABLES Edited Res ult - Final * Peripheral IV Catheter (08/24/2024 9:43 PM ENVIRONMENTAL ASSOCIATE) Narrative Ashok Santa MD - 08/24/2024 9:43 PM ENVIRONMENTAL ASSOCIATE Asohk Santa MD 08/24/2024 9:43 PM Peripheral IV [...] lt * Transfuse plasma (08/24/2024 9:39 PM ENVIRONMENTAL ASSOCIATE) Blood Davina Mckeon MD BLOOD TRANSFUSION ORDERABLES Fin al Result Performing Organization Address [facility] Co de Phone Number [facility] [place] [address] * Transfuse plasma Standard plasma (08/24/2024 9:26 PM ENVIRONMENTAL ASSOCIATE) Blood Davina Mckeon MD BLOOD TRANSFUSION ORDERABLES Fin al Result Performing Organization Address [facility] [place] [address] * Prepare plasma: 1 Units (08/24/2024 9:19 PM ENVIRONMENTAL ASSOCIATE) Product code [id number] Unit Number [id number] [facility] Product Blood Type BPOS [facility] Dispense Status PRESUMED TRANSFUSED [facility] Blood (Blood, Venous) 08/24/2024 9:19 PM ENVIRONMENTAL ASSOCIATE 08/24/2024 9:21 PM ENVIRONMENTAL ASSOCIATE Narrative [facility] - 08/25/2024 4:00 PM ENVIRONMENTAL ASSOCIATE Date required:-[id number] FFP # of Units:-1-Units Reasons:-Immediate need for surgical intervention us Davina Mckeon MD BLOOD BANK PRODUCT ORDERABLES Fi nal Result Performing Organization Address [facility] Co de Phone Number [facility] [place] [address] * Prepare RBC: 2 Units (08/24/2024 9:19 PM ENVIRONMENTAL ASSOCIATE) Product code [id number] Unit Number [id number] H [facility] Product Blood Type OPOS [facility] Dispense Status PRESUMED TRANSFUSED [facility] Blood 08/24/2024 9:19 PM ENVIRONMENTAL ASSOCIATE 08/24/2024 9:21 PM ENVIRONMENTAL ASSOCIATE Narrative [facility] - 08/25/2024 4:00 PM ENVIRONMENTAL ASSOCIATE Are special requirements needed? (All products are leukoreduced and CMV- safe)- >No Date required:-[id number] LRRBC # of [id number] Reasons:-Intra-op transfusion} Davina Mckeon MD BLOOD BANK PRODUCT ORDERABLES Fi nal Result [facility] [place] [address] * (ABNORMAL) POC Blood Gas and Chemistries, Arterial - (08/24/2024 9:16 PM ENVIRONMENTAL ASSOCIATE) pH, Art POC 7.15(C) 7.35 - 7.45 pCO2, Art POC 42 35 - 45 mmHg [facility] pO2, Art POC 140(H) 83 - 108 mmHg [facility] Na, POC 142 135 - 145 mmol/L [facility] K POC 3.8 3.3 - 4.9 mmol/L [facility] Comment: Interpretive Data Not all point of care methods assess for hemolysis. Confirm with instrument and retest K+ if not consistent with clinical signs and symptoms. Current Interpretive Data was last revised on 2023. Cl, POC 118(H) 97 - 110 mmol/L [facility] Ionized Ca, POC 4.95 4.50 - 5.10 mg/dL [facility] Glucose, POC 251(H) 70 - 199 mg/dL [facility] Lactate, POC 1.8 0.7 - 2.2 mmol/L [facility] SO2 (nasra) arterial 99(H) 90 - 95 % [facility] Base excess, POC -13.4 mmol/L [facility] HCO3, Art POC 14(L) 20 - 30 mmol/L [facility] Hct, POC 27.0(L) 36.3 - 45.3 % [facility] Total Hb, POC 9.0(L) 11.9 - 15.5 g/dL [facility] Blood 08/24/2024 9:16 PM ENVIRONMENTAL ASSOCIATE 08/24/2024 9:16 PM ENVIRONMENTAL ASSOCIATE Tashi Parisi MD LAB POCT ORDERABLES - DEV ICE Final Result Performing Organization Address [facility] [place] [address] * (ABNORMAL) POCT hemoglobin, hematocrit and platelet count (08/24/2024 9:15 PM ENVIRONMENTAL ASSOCIATE) Pathologist [facility] Hgb, POC 8.9(L) 11.9 - 15.5 g/dL Hematocrit POC 27.4(L) 35.6 - 45.5 % [facility] Platelet POC 263 150 - 400 K/cumm [facility] Blood 08/24/2024 9:15 PM ENVIRONMENTAL ASSOCIATE 08/24/2024 9:15 PM ENVIRONMENTAL ASSOCIATE Tashi Parisi MD LAB POCT ORDERABLES - DEV ICE Final Result Performing Organization Address [facility] de Phone Number [facility] [place] [address] * (ABNORMAL) POCT Partial thromboplastin time (PTT) (08/24/2024 9:15 PM ENVIRONMENTAL ASSOCIATE) Pathologist [facility] APTT, POC 26.6(L) 32.5 - 46.1 sec Blood 08/24/2024 9:15 PM ENVIRONMENTAL ASSOCIATE 08/24/2024 9:15 PM ENVIRONMENTAL ASSOCIATE Tashi Parisi MD LAB POCT ORDERABLES - DEV ICE Final Result Performing Organization Address [facility] [place] [address] * (ABNORMAL) POCT prothrombin time (08/24/2024 9:14 PM ENVIRONMENTAL ASSOCIATE) PT, POC 21.1(H) 11.7 - 16.6 sec INR, POC 1.6(H) 0.9 - 1.2 [facility] Blood 08/24/2024 9:14 PM ENVIRONMENTAL ASSOCIATE 08/24/2024 9:14 PM ENVIRONMENTAL ASSOCIATE Tashi Parisi MD LAB POCT ORDERABLES - DEV ICE Final Result Performing Organization Address [facility] Co de Phone Number [facility] [place] [address] * Prepare plasma: 1 Units Standard plasma (08/24/2024 9:06 PM ENVIRONMENTAL ASSOCIATE) Product code [id number] Unit Number [id number] [facility] Product Blood Type OPOS [facility] Dispense Status PRESUMED TRANSFUSED [facility] Blood (Blood, Venous) 08/24/2024 9:06 PM ENVIRONMENTAL ASSOCIATE 08/24/2024 9:05 PM ENVIRONMENTAL ASSOCIATE Narrative [facility] - 08/25/2024 4:00 PM ENVIRONMENTAL ASSOCIATE Is this plasma order intended for a COVID-19 patient as convalescent plasma?->Standard plasma Special Requirements Needed?->No Date required:-[id number] FFP # of Units:-1-Units Reasons:-Active major bleeding with coagulopathy} Davina Mckeon MD BLOOD BANK PRODUCT ORDERABLES Fi nal Result Performing Organization Address [facility] Co de Phone Number [facility] Department [place] [address] * Transfuse RBC (08/24/2024 9:04 PM ENVIRONMENTAL ASSOCIATE) Blood Davina Mckeon MD BLOOD TRANSFUSION ORDERABLES Fin al Result Performing Organization Address [facility]/ZIP Co de Phone Number [facility] Department [place] [address] * Prepare RBC: 3 Units (08/24/2024 8:31 PM ENVIRONMENTAL ASSOCIATE) Product code [id number] Unit Number [id number] [facility] Product Blood Type OPOS [facility] BJPrashant Dispense Status RETURNED [facility] LEVY Product code [id number] [facility] Unit Number [id number] U [facility] Product Blood Type OPOS [facility] BJPrashant Dispense Status RETURNED [facility]EVY Product code [id number] [facility]EV[facility] Unit Number [id number] [facility] LE[facility]V Product Blood Type OPOS [facility]EV[facility] Dispense Status PRESUMED TRANSFUSED [facility] Blood 08/24/2024 8:31 PM ENVIRONMENTAL ASSOCIATE 08/24/2024 8:35 PM ENVIRONMENTAL ASSOCIATE Narrative JARETH[facility] - 08/26/2024 10:17 AM ENVIRONMENTAL ASSOCIATE Are special requirements needed? (All products are leukoreduced and CMV- safe)- >No Date required:-[id number] LRRBC # of [id number] Reasons:-Intra-op transfusion} us Davina Mckeon MD BLOOD BANK PRODUCT ORDERABLES Fi nal Result Performing Organization Address [facility] Co de Phone Number [facility] [place] [address] * FL Fluoroscopy < 1 Hour (08/24/2024 8:00 PM ENVIRONMENTAL ASSOCIATE) Narrative [facility] - 08/28/2024 5:44 PM ENVIRONMENTAL ASSOCIATE The images from this study are not interpreted by Radiology. Please refer to the physician's procedure / OR operative note. us Sharan De La Vega MD IMG FLUOROSCOPY PROCEDUR ES Final Result Performing Organization Address [facility] Co de Phone Number [email or web address] * POCT glucose (08/24/2024 6:36 PM ENVIRONMENTAL ASSOCIATE) Glucose, POC 144 70 - 199 mg/dL Blood 08/24/2024 6:36 PM ENVIRONMENTAL ASSOCIATE 08/24/2024 6:36 PM ENVIRONMENTAL ASSOCIATE us Tashi Parisi MD LAB POCT ORDERABLES - DEV ICE Final Result Performing Organization Address [facility] Co de Phone Number [facility] [place] [address] * SC AN ELECTIVE ENDOTRACHEAL AIRWAY, SC AN PROCEDURE PLACEHOLDER (08/24/2024 6:22 PM ENVIRONMENTAL ASSOCIATE) Maricruz Trivedi CRNA - 08/24/2024 6:22 PM ENVIRONMENTAL ASSOCIATE Maricruz Rojo CRNA 08/24/2024 6:23 PM Airway Patient location: OR Urgency: elective Indications for airway management: anesthesia Difficult airway: no Staff: Supervising provider: Lenin Moreland MD Placed by: GIN INSPECTOR: Maricruz Rojo CRNA Emergent airway documentation: Risks [...] Moreland MD ANESTHESIA ORDERABLES Final Result * SC AN PROCEDURE PLACEHOLDER (08/24/2024 2:53 PM ENVIRONMENTAL ASSOCIATE) Serjio Noonan MD - 08/24/2024 2:53 PM ENVIRONMENTAL ASSOCIATE Harley Espinoza MD 08/24/2024 4:10 PM Peripheral [...] Result * Check Sample (08/24/2024 2:14 PM ENVIRONMENTAL ASSOCIATE) ABO Rh O Positive [facility] OTHER 08/24/2024 2:14 PM ENVIRONMENTAL ASSOCIATE 08/24/2024 2:24 PM ENVIRONMENTAL ASSOCIATE Tashi Parisi MD LAB BLOOD ORDERABLES Anna l Result Performing Organization Address City/[facility]/ZIP Co de Phone Number [facility] [place] [address] [facility] * POCT glucose (08/24/2024 2:10 PM ENVIRONMENTAL ASSOCIATE) Glucose, POC 155 70 - 199 mg/dL Blood 08/24/2024 2:10 PM ENVIRONMENTAL ASSOCIATE 08/24/2024 2:10 PM ENVIRONMENTAL ASSOCIATE Tashi Parisi MD LAB POCT ORDERABLES - DEV ICE Final Result Performing Organization Address [facility]/ZIP Co de Phone Number [facility] [place] [address] * POCT glucose (08/24/2024 11:51 AM ENVIRONMENTAL ASSOCIATE) Glucose, POC 176 70 - 199 mg/dL Blood 08/24/2024 11:5 1 AM ENVIRONMENTAL ASSOCIATE 08/24/2024 11:51 AM ENVIRONMENTAL ASSOCIATE us Tashi Parisi MD LAB POCT ORDERABLES - DEV ICE Final Result Performing Organization Address [facility] Co de Phone Number [facility] [place] [address] * (ABNORMAL) eGFR (08/24/2024 9:39 AM ENVIRONMENTAL ASSOCIATE) eGFR 39(L) >=60 mL/min/1. 73 m2 Comment: [...] last reviewed 2021. Blood 08/24/2024 9:39 AM ENVIRONMENTAL ASSOCIATE 08/24/2024 9:54 AM ENVIRONMENTAL ASSOCIATE us Radha Kirk NP LAB BLOOD ORDERABLES Final Result Performing Organization Address [facility]/ZIP Co de Phone Number [facility] [place] [address] * (ABNORMAL) Differential, auto (08/24/2024 9:39 AM ENVIRONMENTAL ASSOCIATE) Neutrophil abs 4.8 1.5 - 6.5 K/cumm Imm gran abs 0.0 0.0 - 0.1 K/cumm [facility] Lymphocyte abs 1.4 0.8 - 3.3 K/cumm [facility] Monocyte abs 0.9(H) 0.2 - 0.8 K/cumm [facility] Eosinophil abs 0.2 0.0 - 0.5 K/cumm [facility] Basophil abs 0.1 0.0 - 0.1 K/cumm [facility] Neutrophil pct 64.5 % [facility] Comment: Interpretive Data Percent cell count reference ranges are not reported, since discordance with absolute values may lead to misinterpretation of CBC data. Current Interpretive Data was last revised on 2017. Imm gran pct 0.4 % [facility] Comment: Interpretive Data Percent cell count reference ranges are not reported, since discordance with absolute values may lead to misinterpretation of CBC data. Current Interpretive Data was last revised on 2017. Lymphocyte pct 18.6 % [facility] Comment: Interpretive Data Percent cell count reference ranges are not reported, since discordance with absolute values may lead to misinterpretation of CBC data. Current Interpretive Data was last revised on 2017. Monocyte pct 12.5 % [facility] Comment: Interpretive Data Percent cell count reference ranges are not reported, since discordance with absolute values may lead to misinterpretation of CBC data. Current Interpretive Data was last revised on 2017. Eosinophil pct 3.1 % [facility] Comment: Interpretive Data Percent cell count reference ranges are not reported, since discordance with absolute values may lead to misinterpretation of CBC data. Current Interpretive Data was last revised on 2017. Basophil pct 0.9 % [facility] Comment: Interpretive Data Percent cell count reference ranges are not reported, since discordance with absolute values may lead to misinterpretation of CBC data. Current Interpretive Data was last revised on 2017. Blood 08/24/2024 9:39 AM ENVIRONMENTAL ASSOCIATE 08/24/2024 9:54 AM ENVIRONMENTAL ASSOCIATE us Radha Kirk [employer] LAB BLOOD ORDERABLES Final Result [facility] [place] [address] * (ABNORMAL) CBC with auto differential (08/24/2024 9:39 AM ENVIRONMENTAL ASSOCIATE) [facility] WBC 7.4 3.8 - 9.9 K/cumm Hgb 12.2 11.9 - 15.5 g/dL [facility] Hct 39.5 35.6 - 45.5 % [facility] Plt 235 150 - 400 K/cumm [facility] MPV 9.6 9.1 - 12.3 fL [facility] RBC 4.35 3.90 - 5.20 M/cumm [facility] MCV 90.8 81.3 - 96.4 fL [facility] MCH 28.0 27.1 - 33.3 pg [facility] MCHC 30.9(L) 32.3 - 35.7 g/dL [facility] RDW CV 14.6 11.1 - 14.9 % [facility] RDW SD 49.4(H) 35.7 - 48.1 fL [facility] NRBC abs 0.00 0.00 - 0.01 K/cumm [facility] Blood 08/24/2024 9:39 AM ENVIRONMENTAL ASSOCIATE 08/24/2024 9:54 AM ENVIRONMENTAL ASSOCIATE us Radha Kirk [employer] LAB BLOOD ORDERABLES Final Result Performing Organization Address City/[facility]/ZIP Co de Phone Number [facility] [place] [address] * Phosphorus (08/24/2024 9:39 AM ENVIRONMENTAL ASSOCIATE) [facility] Phosphorus, pl 3.6 2.3 - 4.5 mg/dL Blood 08/24/2024 9:39 AM ENVIRONMENTAL ASSOCIATE 08/24/2024 9:54 AM ENVIRONMENTAL ASSOCIATE Radha Kirk [employer] LAB BLOOD ORDERABLES Final Result [facility] [place] [address] * Magnesium (08/24/2024 9:39 AM ENVIRONMENTAL ASSOCIATE) Pathologist [facility] Magnesium 1.9 1.4 - 2.5 mg/dL Blood 08/24/2024 9:39 AM ENVIRONMENTAL ASSOCIATE 08/24/2024 9:54 AM ENVIRONMENTAL ASSOCIATE Radha Kirk [employer] LAB BLOOD ORDERABLES Final Result [facility] [place] [address] * (ABNORMAL) Comprehensive metabolic panel (08/24/2024 9:39 AM ENVIRONMENTAL ASSOCIATE) [facility] Sodium 140 135 - 145 mmol/L Potassium, pl 3.5 3.3 - 4.9 mmol/L [facility] Chloride 108 97 - 110 mmol/L [facility] CO2 24 22 - 32 mmol/L [facility] Anion gap 8 2 - 15 mmol/L [facility] BUN 35(H) 6 - 25 mg/dL [facility] Creatinine 1.33(H) 0.60 - 1.10 mg/dL [facility] Glucose 193 70 - 199 mg/dL [facility] Comment: Interpretive Data Fasting glucose >/= [...] 2022. Calcium 9.8 8.5 - 10.3 mg/dL [facility] Bilirubin, total 0.5 0.1 - 1.2 mg/dL [facility] Protein, pl 7.0 6.5 - 8.5 g/dL [facility] Albumin 3.7 3.5 - 5.0 g/dL [facility] Alk phos 96 40 - 130 Units/L [facility] ALT 12 7 - 45 Units/L [facility] AST 15 10 - 45 Units/L [facility] Blood 08/24/2024 9:39 AM ENVIRONMENTAL ASSOCIATE 08/24/2024 9:54 AM ENVIRONMENTAL ASSOCIATE us Radha Kirk NP LAB BLOOD ORDERABLES Final Result [facility] [place] [address] * POCT glucose (08/24/2024 8:16 AM ENVIRONMENTAL ASSOCIATE) Glucose, POC 174 70 - 199 mg/dL Blood 08/24/2024 8:16 AM ENVIRONMENTAL ASSOCIATE 08/24/2024 8:16 AM ENVIRONMENTAL ASSOCIATE us Tashi Parisi MD LAB POCT ORDERABLES - DEV ICE Final Result Performing Organization Address [facility] Co de Phone Number [facility] [place] [address] * Potassium, whole blood (08/24/2024 3:38 AM ENVIRONMENTAL ASSOCIATE) Potassium, bld 3.5 3.3 - 4.9 mmol/L Blood 08/24/2024 3:38 AM ENVIRONMENTAL ASSOCIATE 08/24/2024 3:44 AM ENVIRONMENTAL ASSOCIATE us Miranda Hunter MD LAB BLOOD ORDERABLES Final Result Performing Organization Address [facility] Co de Phone Number [facility] [place] [address] * POCT glucose (08/23/2024 10:27 PM ENVIRONMENTAL ASSOCIATE) Glucose, POC 156 70 - 199 mg/dL Blood 08/23/2024 10:2 7 PM ENVIRONMENTAL ASSOCIATE 08/23/2024 10:27 PM ENVIRONMENTAL ASSOCIATE Tashi Parisi MD LAB POCT ORDERABLES - DEV ICE Final Result Performing Organization Address [facility] Co de Phone Number [facility] [place] [address] * (ABNORMAL) POCT glucose (08/23/2024 9:05 PM ENVIRONMENTAL ASSOCIATE) [facility] Signature Glucose, POC 205(H) 70 - 199 mg/dL Blood 08/23/2024 9:05 PM ENVIRONMENTAL ASSOCIATE 08/23/2024 9:05 PM ENVIRONMENTAL ASSOCIATE Tashi Parisi MD LAB POCT ORDERABLES - DEV ICE Final Result Performing Organization Address [facility] Phone Number [facility] [place] [address] * CT Pelvis WO Contrast (08/23/2024 7:10 PM ENVIRONMENTAL ASSOCIATE) Anatomical Region Laterality Modality Body N/A Computed Tomogra phy 08/23/2024 7:18 PM ENVIRONMENTAL ASSOCIATE Impressions 08/23/2024 7:28 PM ENVIRONMENTAL ASSOCIATE Changes of intramedullary nailing of the right proximal femur with comminuted fracture involving the proximal right femoral shaft as well as right femoral neck without intra-articular involvement. Dictated by: Netsor Lentz MD PHD The radiology attending physician has personally reviewed this study, and had reviewed and/or edited this written report and agrees with it. Electronically signed by: Toi Milan M.D. Narrative 08/23/2024 7:28 PM ENVIRONMENTAL ASSOCIATE EXAMINATION: CT PELVIS WO CONTRAST HISTORY: Suspected [...] Cervical Spine WO Contrast (08/23/2024 5:30 PM ENVIRONMENTAL ASSOCIATE) Anatomical Region Laterality Modality Spine N/A Computed Tomogra phy 08/23/2024 5:42 PM ENVIRONMENTAL ASSOCIATE Impressions 08/23/2024 5:52 PM ENVIRONMENTAL ASSOCIATE No acute fracture within the cervical spine. Dictated by: Maddi Pat MD The radiology attending physician has personally reviewed this study, and had reviewed and/or edited this written report and agrees with it. Electronically signed by: Sandy Garcia M.D. Narrative 08/23/2024 5:52 PM ENVIRONMENTAL ASSOCIATE EXAMINATION: CT of the cervical spine without [...] sult * (ABNORMAL) eGFR (08/23/2024 4:49 PM ENVIRONMENTAL ASSOCIATE) eGFR 49(L) >=60 mL/min/1. 73 m2 Comment: [...] last reviewed 2021. Blood 08/23/2024 4:49 PM ENVIRONMENTAL ASSOCIATE 08/23/2024 4:55 PM ENVIRONMENTAL ASSOCIATE Minor Barnes MD LAB BLOOD ORDERABLES Final Result [facility] [place] [address] * Lipid panel (08/23/2024 4:49 PM ENVIRONMENTAL ASSOCIATE) Cholesterol 146 30 - 199 mg/dL Comment: [...] revised on 2018. Triglycerides 93 <=149 mg/dL [facility] Comment: Interpretive Data Ages < or [...] revised on 2018. HDL 45 >=40 mg/dL [facility] Comment: Interpretive Data Ages < or [...] on 2018. LDL, calculated 84 <=129 mg/dL [facility] Comment: Interpretive Data Ages < or [...] revised on 2024. Non-HDL Cholesterol 101 mg/dL [facility] Comment: Interpretive Data Ages < or [...] last revised on 2018. Chol/HDL ratio 3 [facility] Blood 08/23/2024 4:49 PM ENVIRONMENTAL ASSOCIATE 08/23/2024 4:55 PM ENVIRONMENTAL ASSOCIATE Narrative [facility] - 08/24/2024 8:25 AM ENVIRONMENTAL ASSOCIATE Reflex Tashi Parisi MD LAB BLOOD ORDERABLES Anna mari Result [facility] [place] [address] * (ABNORMAL) Comprehensive metabolic panel (08/23/2024 4:49 PM ENVIRONMENTAL ASSOCIATE) Sodium 144 135 - 145 mmol/L Potassium, pl 3.1(L) 3.3 - 4.9 mmol/L [facility] Chloride 111(H) 97 - 110 mmol/L [facility] CO2 22 22 - 32 mmol/L [facility] Anion gap 11 2 - 15 mmol/L [facility] BUN 29(H) 6 - 25 mg/dL [facility] Creatinine 1.11(H) 0.60 - 1.10 mg/dL [facility] Glucose 218(H) 70 - 199 mg/dL [facility] Comment: Interpretive Data Fasting glucose >/= [...] 2022. Calcium 9.4 8.5 - 10.3 mg/dL [facility] Bilirubin, total 0.3 0.1 - 1.2 mg/dL [facility] Protein, pl 6.9 6.5 - 8.5 g/dL [facility] Albumin 3.6 3.5 - 5.0 g/dL [facility] Alk phos 93 40 - 130 Units/L [facility] ALT 10 7 - 45 Units/L [facility] AST 20 10 - 45 Units/L [facility] Blood 08/23/2024 4:49 PM ENVIRONMENTAL ASSOCIATE 08/23/2024 4:55 PM ENVIRONMENTAL ASSOCIATE Minor Barnes MD LAB BLOOD ORDERABLES Final Result [facility] [place] [address] * SC INJECTION AA&/STRD OTHER PERIPHERAL NERVE/BRANCH (08/23/2024 4:15 PM ENVIRONMENTAL ASSOCIATE) Narrative Álvaro Flores MD - 08/23/2024 4:15 PM ENVIRONMENTAL ASSOCIATE Minor Barnes MD 08/23/2024 4:17 PM Nerve Block Date/Time: 08/23/2024 4:15 PM Performed by: Minor Barnes MD Authorized by: Felice Goyal MD [place] Protocol: RN Notified of Procedure: yes Informed [...] 2 or 3 Views (08/23/2024 3:51 PM ENVIRONMENTAL ASSOCIATE) Anatomical Region Laterality Modality Lower Extremities, Hip, Pelvis Right C omputed Radiography 08/23/2024 4:08 PM ENVIRONMENTAL ASSOCIATE Impressions 08/23/2024 4:11 PM ENVIRONMENTAL ASSOCIATE Extra-articular obliquely oriented mildly displaced fracture of the proximal right femoral shaft extending into the lesser trochanter. Dictated by: Karen Fair MD The radiology attending physician has personally reviewed this study, and had reviewed and/or edited this written report and agrees with it. Electronically signed by: Toi Milan M.D. Narrative 08/23/2024 4:11 PM ENVIRONMENTAL ASSOCIATE EXAMINATION: XR PELVIS 1 OR 2 VIEWS [...] 2 or More Views (08/23/2024 3:35 PM ENVIRONMENTAL ASSOCIATE) Anatomical Region Laterality Modality Lower Extremities, Thigh, Femur Right Computed Radiography 08/23/2024 4:08 PM ENVIRONMENTAL ASSOCIATE Impressions 08/23/2024 4:11 PM ENVIRONMENTAL ASSOCIATE Extra-articular obliquely oriented mildly displaced fracture of the proximal right femoral shaft extending into the lesser trochanter. Dictated by: Karen Fair MD The radiology attending physician has personally reviewed this study, and had reviewed and/or edited this written report and agrees with it. Electronically signed by: Toi Milan M.D. Narrative 08/23/2024 4:11 PM ENVIRONMENTAL ASSOCIATE EXAMINATION: XR PELVIS 1 OR 2 VIEWS [...] 1 or 2 Views (08/23/2024 3:34 PM ENVIRONMENTAL ASSOCIATE) Anatomical Region Laterality Modality Body, Pelvis N/A Computed Radiogr aphy 08/23/2024 4:08 PM ENVIRONMENTAL ASSOCIATE Impressions 08/23/2024 4:11 PM ENVIRONMENTAL ASSOCIATE Extra-articular obliquely oriented mildly displaced fracture of the proximal right femoral shaft extending into the lesser trochanter. Dictated by: Karen Fair MD The radiology attending physician has personally reviewed this study, and had reviewed and/or edited this written report and agrees with it. Electronically signed by: Toi Milan M.D. Narrative 08/23/2024 4:11 PM ENVIRONMENTAL ASSOCIATE EXAMINATION: XR PELVIS 1 OR 2 VIEWS [...] Chest 1 Vw Portable (08/23/2024 3:34 PM ENVIRONMENTAL ASSOCIATE) Anatomical Region Laterality Modality Body, Chest N/A Computed Radiogr aphy 08/23/2024 4:01 PM ENVIRONMENTAL ASSOCIATE Impressions 08/23/2024 4:11 PM ENVIRONMENTAL ASSOCIATE The heart and mediastinal contours are normal. [...] Toi Milan M.D. Narrative 08/23/2024 4:11 PM ENVIRONMENTAL ASSOCIATE EXAMINATION: 1 view chest radiograph Procedure Note [...] * (ABNORMAL) Differential, auto (08/23/2024 3:09 PM ENVIRONMENTAL ASSOCIATE) Neutrophil abs 11.1(H) 1.5 - 6.5 K/cumm Imm gran abs 0.1 0.0 - 0.1 K/cumm [facility] Lymphocyte abs 1.3 0.8 - 3.3 K/cumm [facility] Monocyte abs 0.7 0.2 - 0.8 K/cumm [facility] Eosinophil abs 0.0 0.0 - 0.5 K/cumm [facility] Basophil abs 0.1 0.0 - 0.1 K/cumm [facility] Neutrophil pct 83.7 % [facility] Comment: Interpretive Data Percent cell count reference ranges are not reported, since discordance with absolute values may lead to misinterpretation of CBC data. Current Interpretive Data was last revised on 2017. Imm gran pct 0.4 % [facility] Comment: Interpretive Data Percent cell count reference ranges are not reported, since discordance with absolute values may lead to misinterpretation of CBC data. Current Interpretive Data was last revised on 2017. Lymphocyte pct 9.9 % [facility] Comment: Interpretive Data Percent cell count reference ranges are not reported, since discordance with absolute values may lead to misinterpretation of CBC data. Current Interpretive Data was last revised on 2017. Monocyte pct 5.1 % [facility] Comment: Interpretive Data Percent cell count reference ranges are not reported, since discordance with absolute values may lead to misinterpretation of CBC data. Current Interpretive Data was last revised on 2017. Eosinophil pct 0.2 % [facility] Comment: Interpretive Data Percent cell count reference ranges are not reported, since discordance with absolute values may lead to misinterpretation of CBC data. Current Interpretive Data was last revised on 2017. Basophil pct 0.7 % [facility] Comment: Interpretive Data Percent cell count reference ranges are not reported, since discordance with absolute values may lead to misinterpretation of CBC data. Current Interpretive Data was last revised on 2017. Blood 08/23/2024 3:09 PM ENVIRONMENTAL ASSOCIATE 08/23/2024 3:24 PM ENVIRONMENTAL ASSOCIATE Minor Barnes MD LAB BLOOD ORDERABLES Final Result [facility] Department [place] [address] * (ABNORMAL) CBC with auto differential (08/23/2024 3:09 PM ENVIRONMENTAL ASSOCIATE) WBC 13.2(H) 3.8 - 9.9 K/cumm Hgb 12.9 11.9 - 15.5 g/dL [facility] Hct 40.3 35.6 - 45.5 % [facility] Plt 309 150 - 400 K/cumm [facility] MPV 9.8 9.1 - 12.3 fL [facility] RBC 4.62 3.90 - 5.20 M/cumm [facility] MCV 87.2 81.3 - 96.4 fL [facility] MCH 27.9 27.1 - 33.3 pg [facility] MCHC 32.0(L) 32.3 - 35.7 g/dL [facility] RDW CV 14.6 11.1 - 14.9 % [facility] RDW SD 46.9 35.7 - 48.1 fL [facility] NRBC abs 0.00 0.00 - 0.01 K/cumm [facility] Blood 08/23/2024 3:0 9 PM ENVIRONMENTAL ASSOCIATE 08/23/2024 3:24 PM ENVIRONMENTAL ASSOCIATE Minor Barnes MD LAB BLOOD ORDERABLES Final Result Performing Organization Address City/[facility] Co de Phone Number [facility] [place] [place] [address] * aPTT (08/23/2024 3:09 PM ENVIRONMENTAL ASSOCIATE) [facility] aPTT 29 28 - 38 sec Comment: Interpretive Data Heparin therapeutic range: 66.0 - 100.0 seconds. Range based on correlation with therapeutic heparin activity range of 0.3 - 0.7 Units/mL. Current interpretive data was last revised on 2023. Blood 08/23/2024 3:09 PM ENVIRONMENTAL ASSOCIATE 08/23/2024 3:28 PM ENVIRONMENTAL ASSOCIATE Minor Barnes MD LAB BLOOD ORDERABLES Final Result Performing Organization Address City/[facility]/ZIP Co de Phone Number [facility] [place] [address] * (ABNORMAL) Protime-INR (08/23/2024 3:09 PM ENVIRONMENTAL ASSOCIATE) PT 13.3(H) 9.7 - 13.0 sec INR 1.23(H) 0.90 - 1.20 [facility] Comment: Interpretive data Oral anticoagulant therapeutic ranges: Venous thromboembolism prophylaxis or treatment: 2.0-3.0 CARDIOLOGY Standard range: 2.0-3.0 High-intensity range: 2.5-3.5 Refer to indication-specific guidelines for appropriate target ranges for prosthetic heart valve replacement. Current interpretive data was last revised on 2019. Blood 08/23/2024 3:09 PM ENVIRONMENTAL ASSOCIATE 08/23/2024 3:28 PM ENVIRONMENTAL ASSOCIATE Minor Barnes MD LAB BLOOD ORDERABLES Final Result Performing Organization Address City/[facility]/[place] [address] * Type and screen (08/23/2024 3:09 PM ENVIRONMENTAL ASSOCIATE) ABO Rh O Positive Markos, indirect Negative [facility] Blood 08/23/2024 3:09 PM ENVIRONMENTAL ASSOCIATE 08/23/2024 3:20 PM ENVIRONMENTAL ASSOCIATE Narrative [facility] - 08/23/2024 4:07 PM ENVIRONMENTAL ASSOCIATE Has the patient had Daratumumab or Isatuximab in the past 6 months?->Unknown Minor Barnes MD LAB BLOOD BANK TEST [place] [address] * Neuro CT Outside Reference (08/23/2024 2:36 PM ENVIRONMENTAL ASSOCIATE) Impressions [facility] - 08/23/2024 2:36 PM ENVIRONMENTAL ASSOCIATE These images are for Reference purposes only and have not been reviewed by [facility]. There will be no report generated by a [facility]iologist. Narrative [facility] - 08/23/2024 2:36 PM ENVIRONMENTAL ASSOCIATE EXAMINATION: Images For Reference Purposes Only Felice Goyal MD IMG CT PROCEDURES Anna l Result Performing Organization Address [facility] de Phone Number [facility] * XR Outside Reference (08/23/2024 2:33 PM ENVIRONMENTAL ASSOCIATE) Impressions [facility] - 08/23/2024 2:33 PM ENVIRONMENTAL ASSOCIATE These images are for Reference purposes only and have not been reviewed by [facility]. There will be no report generated by a [facility]iologist. Narrative [facility] - 08/23/2024 2:33 PM ENVIRONMENTAL ASSOCIATE EXAMINATION: Images For Reference Purposes Only Felice Goyal MD IMG XR PROCEDURES Anna l Result Performing Organization Address [facility] de Phone Number [facility] * XR Outside Reference (08/23/2024 2:30 PM ENVIRONMENTAL ASSOCIATE) Impressions [facility] - 08/23/2024 2:30 PM ENVIRONMENTAL ASSOCIATE These images are for Reference purposes only and have not been reviewed by [facility]. There will be no report generated by a [facility]iologist. Narrative [facility] - 08/23/2024 2:30 PM ENVIRONMENTAL ASSOCIATE EXAMINATION: Images For Reference Purposes Only Felice Goyal MD IMG XR PROCEDURES Anna l Result Performing Organization Address [facility] de Phone Number [facility] * POCT ketone, blood (08/23/2024 2:05 PM ENVIRONMENTAL ASSOCIATE) Ketones, Blood, POC 0.2 0.0 - 0.5 mmol/L Blood 08/23/2024 2:05 PM ENVIRONMENTAL ASSOCIATE 08/23/2024 2:05 PM ENVIRONMENTAL ASSOCIATE Martin Pinto MD LAB POCT ORDERABLES - DE VICE Final Result Performing Organization Address City/[facility] Co de Phone Number [facility] Department [place] [address] * (ABNORMAL) POCT glucose (08/23/2024 2:04 PM ENVIRONMENTAL ASSOCIATE) Glucose, POC 217(H) 70 - 199 mg/dL Comment:Glu2: RN/MD Notified Glucose comment 1 Glu2: RN/MD Notified [facility] Blood 08/23/2024 2:04 PM ENVIRONMENTAL ASSOCIATE 08/23/2024 2:04 PM ENVIRONMENTAL ASSOCIATE Martin Pinto MD LAB POCT ORDERABLES - DE VICE Final Result Performing Organization Address [facility] Phone Number [facility] [place] [address] * Dexa Axial Skeleton Bone Density 1 or 2 Site (06/02/2021 3:15 PM CDT) Anatomical Region Laterality Modality Body N/A Mammography 06/05/2021 7:05 AM CDT Narrative 06/05/2021 7:06 AM CDT EXAM DESCRIPTION: DEXA AXIAL SKELETON BONE DENSITY 1 OR MORE SITES REASON FOR STUDY: 80 y/o year old F with given history of screening. 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 MF: [id number] Report ID: [id number] Reading Location: [id number] Procedure Note Toi Jackson MD - 06/05/2021 EXAM DESCRIPTION: DEXA AXIAL SKELETON BONE DENSITY 1 OR MORE SITES REASON FOR STUDY: 80 y/o year old F with given history ofscreening. 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 MF: [id number] Report ID: [id number] Reading Location: [id number] [facility] IMG DXA PROCEDURES Final Re [...] and children were not included. (Diabetes Care [id number], 2008). The eAG is not equivalent to a fasting glucose. Blood 05/22/2021 9:55 AM CDT 05/22/2021 5:19 PM CDT [facility] LAB BLOOD ORDERABLES Final Result [facility] [address] [facility] Department [place] [address] * (ABNORMAL) Diabetic Eye Exam (12/10/2020) us Historical Provider HEALTH MAINTENANCE Final Result from Last 3 Months or Most Recently Relevant to Health Maintenance Insurance [employer] MEDICARE MEDICARE FOR LIFE MEDICARE FOR LIFE Advance Directives For more information, please contact: [phone] * Full Code (Latest Code Status on File) Date Activated Date Inactivated Comments 08/23/2024 10:14 PM 08/28/2024 12:08 AM * Full Code Date Activated Date Inactivated Comments 03/07/2020 10:09 AM 03/07/2020 4:03 PM Care Teams Sports Medicine Coordinator Relationship Specialty Start Date End Date Tashi Christianson MD [address] [facility] [address] [facility] [address] [place] [address] PCP - General Family Medicine 05/09/22 [place] [address] [address] Nurse Practitioner Nurse Practitioner 04/30/24
--- OUTSIDE RECORDS SUMMARY | 2024-09-23 13:52 | XMS_ITS | Clinical Summary ---
Author Organization [facility] al Address [address] [place] [address] Care Team Providers Care Pump Rebuilder Name Role Phone Tashi Christianson MD Primary Care Provider Pedro Roy NP Unavailable [phone] Allergies Active Allergy Reactions Criticality Noted Date [...] 24 hr tabletIndications: Coronary artery disease involving [place] coronary artery of [place] heart with angina pectoris (HCC) Take 1 [...] right femur, unspecified fracture morphology, initial encounter ([facility]) Take 2 tablets (320 mg of [...] 08/26/2024 Assessment & Plan (08/26/2024 10:19 AM PBX INSPECTOR): Fell getting out of bed going to walker ABLA (acute blood loss anemia) 08/26/2024 Assessment & Plan (08/27/2024 11:52 AM PBX INSPECTOR): 08/23 On admission hgb 12.9 Pt went [...] 08/26/2024 Assessment & Plan (08/27/2024 11:53 AM PBX INSPECTOR): On admission Cr 1.11 08/26 1.5 One liter of fluid Now mid day 1.23 Monitor BM daily if recurrent elevation transfuse one unit of RBC. -08/27 stable for discharge, encourage PO intake. Cervical radiculopathy 08/25/2024 Assessment & Plan (08/27/2024 11:50 AM PBX INSPECTOR): 08/25 c/o right neck pain post surgery with pain in right index/thumb/palm. -heat/cold compress -range motion/ PT/OT -gabapentin increase to Q8 hours -08/27 pain under control,will have pain regimens on discharge. Right hand pain 08/25/2024 Assessment & Plan (08/27/2024 11:52 AM PBX INSPECTOR): 08/25 Right hand and wrist xray rule [...] 08/24/2024 Assessment & Plan (08/27/2024 11:48 AM PBX INSPECTOR): Chronic Glipizide 5 mg, Metformin 500 mg [...] 08/24/2024 Assessment & Plan (08/27/2024 11:48 AM PBX INSPECTOR): Chronic Atorvastatin 40 mg daily Follow up with previously established provider for ongoing evaluation. Encounter for medication management 08/24/2024 Discharge planning issues 08/24/2024 Assessment & Plan (08/27/2024 11:49 AM PBX INSPECTOR): 08/25 hgb monitoring post surgical procedure, need to work with PT/OT and pain control. ADD 08/27 08/27 Patient is medically stable for discharge, SW/CM updated. Discharge SNF today Chronic pain 08/24/2024 Assessment & Plan (08/27/2024 11:49 AM PBX INSPECTOR): Followed by pain managed Morphine intrathecal management monthly Follow up with previously established provider for ongoing evaluation. Depression 08/24/2024 Assessment & Plan (08/27/2024 11:49 AM PBX INSPECTOR): Lexapro 20 mg daily, continue on discharge Follow up with previously established provider for ongoing evaluation. Periprosthetic fracture of shaft of femur 2024 Closed fracture of shaft of right femur 08/23/19 25 Assessment & Plan (08/27/2024 11:48 AM PBX INSPECTOR): Orthopedic consult Right isaac implant mid shaft femur fracture 08/24 OR SUSI, long CMN R isaac-implant midshaft femur fx. Pain control TTWB ASA 81 mg BID x 14 days recommendation from orthopedic at discharge Wound Care: Surgical dressings will be changed on POD3. Okay for nursing to reinforce dressings PRN if they become soiled or have shadowing before that time Sutures/[place]: to be removed 3 weeks after surgical date (Sep 14). Please include on discharge orders if patient is going to a facility. If the patient is still in the hospital at that time they will be removed by the orthopedic team. Follow-Up: Patient has follow up scheduled on 10/07/[address] Arora located at [facility] 6A Aspirin 81mg BID x 14 days, Bone health follow up. 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 Has had ileal conduit since then. -Doing well overall. No worrisome signs. Encounter for colonoscopy due to history of colo sourav polyp 02/16/2020 Overview (02/16/2020): Added automatically from request for surgery [id number] Closed fracture of phalanx of foot 07/28/2019 Paroxysmal atrial fibrillation (CMS/HCC) 019 Assessment & Plan (08/27/2024 11:47 AM PBX INSPECTOR): Hold home Eliquis Toprol XL 37.5mg daily ---> IR while admitted bid 25 and 12.5 [id number]: 5 -will hold Eliquis and start ASA on discharge, continue home metoprolol Follow up with your PCP for medication evaluation and ongoing evaluation. Chronic anticoagulation 03/31/2019 PSVT (paroxysmal supraventricular tachycardia) ( CMS/HCC) 03/09/2019 Near syncope 02/16/2019 Palpitations 02/16/2019 TIA (transient ischemic attack) 02/16/2019 Esophageal ulcer 08/14/2018 Assessment & Plan (08/27/2024 11:47 AM PBX INSPECTOR): Chronic Omeprazole 40 mg daily --->pantoprazole while admitted. Follow up with previously established provider for ongoing evaluation. Myocardial bridge 05/01/2018 Abnormal stress test 04/11/2018 Acquired hypothyroidism 04/11/2018 Assessment & Plan (08/27/2024 11:47 AM PBX INSPECTOR): Levothyroxine 50 mcg daily Follow up with previously established provider for ongoing evaluation. Hypertension associated with diabetes 04/11/2018 Assessment & Plan (08/27/2024 11:19 AM PBX INSPECTOR): Chronic Losartan 25 mg daily HCTZ 25mg daily hold, Irbesartan 75mg, Amlodipine/Atorvastatin 10/40mg daily -08/27 stable for DC Follow up with previously established provider for ongoing evaluation. Mixed diabetic hyperlipidemi a associated with type 2 diabetes mellitus ([facility]) 04/11/2018 SHEETS (dyspnea on exertion) 04/11/2018 Coronary artery disease invo lving [place] coronary artery of [place] heart without angina pectoris 04/11/2018 S/P coronary artery stent placement 04/11/2018 Benign colon polyp 11/18/2017 BPPV (benign paroxysmal posi tional vertigo), unspecified laterality 02/01/2017 Abnormal gait 02/01/2017 Active cochleovestibular Meniere's disease 02/01 Horizontal vertigo, unspecified laterality 12/19 Peripheral vertigo 11/19/2016 History of ileal conduit 10/23/2016 Assessment & Plan (10/04/2020 3:42 PM PBX INSPECTOR): -Stoma pink and moist -Urine clear, yellow and draining well -Skin around ostomy bag is clean and dry Fecal incontinence 09/19/2011 Encounters Date Type Department Care Team Description 09/16/2024 12:30 PM PBX INSPECTOR Office Visit [facility] Orthopaedic Surgery [address] [place] [address] 6th [place] [address] [place] [address] Elena Arora MD Closed fracture of shaft of right femur, unspecified fracture morphology, initial encounter ([facility]) (Primary Dx) 08/24/2024 6:00 PM PBX INSPECTOR - 08/24/2024 8:40 PM PBX INSPECTOR Surgery [facility] Operating Room [address] [place] [address] Elena Arora MD REMOVAL/EXCHANGE INTERMEDULLARY NAILING - FEMUR; ORIF DISTAL FEMUR 08/24/2024 5:35 PM PBX INSPECTOR Anesthesia Event [facility] [address] [place] [address] Davina Mckeon MD Dippolito, Jenny Irene, NP 08/24/2024 Orders Only [facility] Orthopaedic Surgery [address] [facility] 6th [place] [address] [place] [address] Elena Arora MD Periprosthetic fracture of shaft of femur (Primary Dx) 08/23/2024 1:51 PM PBX INSPECTOR - 08/27/2024 7:30 PM PBX INSPECTOR Hospital Encounter [facility] [address] [facility] [place] [address] Felice Goyal MD Snyder, Jason Andrew, MD Fall, initial encounter (Primary Dx); Closed fracture of shaft of right femur, unspecified fracture morphology, initial encounter (HCC) Discharge Disposition: Discharge to an IP Rehab facility 07/28/2024 Documentation [facility] Surgery [address] [place] [address] [address] [place] [address] Nina Escalante RMA from Last [...] 2 diabetes mellitus wit h diabetic polyneuropathy ([facility]) Diabetic peripheral neuropat hy - (Added by [...] by TW Conv) Hypertension Atrial fibrillation (CMS/HCC) ([facility]) Acid indigestion Diverticulitis Cataracts, bilateral Arthritis Coronary artery disease 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 Covid 2021 PONV (postoperative nausea and vomiting) GERD (gastroesophageal reflux disease) Chronic pain disorder Cancer (CMS/HCC) ([facility]) Family History Medical History Relation Name Comments [...] on file Legal Sex Female 11:33 PM PBX INSPECTOR Gender Identity Not on file Sexual Orientation [...] Comments Blood Pressure 117/53 08/27/2024 5:33 PM PBX INSPECTOR Pulse 75 08/27/2024 5:33 PM PBX INSPECTOR Temperature 37 C (98.6 F) 08/27/2024 4:22 PM PBX INSPECTOR Respiratory Rate 16 08/27/2024 4:22 PM PBX INSPECTOR Oxygen Saturation 96% 08/27/2024 4:22 PM PBX INSPECTOR Inhaled Oxygen Concentration - - Weight 63.5 kg (140 lb) 08/23/2024 9:55 PM PBX INSPECTOR Height 165.1 cm (5' 5 ) 08/23/2024 9:55 PM PBX INSPECTOR Body Mass Index 23.3 08/23/2024 9:55 PM PBX INSPECTOR Plan of Treatment Health Maintenance Due Date [...] 02/21/2021, 01/24/2021 Medical Devices Implanted Type Area Picking Machine Operator Helper Device Identifier Shelf Expiration Date Model / Serial / Lot [employer] Nephew/Richco/Ort ho Cable Bone Cerclage With Crimp Evos Stainless Steel [id number] - [id number] Implanted:Qty: 1 on 08/24/2024 at [facility] Cable Right: Femur [employer]Rich[employer]/ Ortho [id number] / / [employer]Rich[employer]/Ort ho Cable Bone Cerclage With Crimp Evos Stainless Steel [id number] - [id number] Implanted:Qty: 1 on 08/24/2024 by Elena Arora MD at [facility] Cable Right: Femur [employer]Rich[employer]/ Ortho [id number] / / [employer]hew/Richco/Ort ho Nail Intramedullary Right 125 Degree Femoral Intertan [id number] Titanium [id number] - [id number] Implanted:Qty: 1 on 08/24/2024 by Elena Arora MD at [facility] Nail Right: Femur [employer]Rich[employer]/ Ortho [id number] 10/08/2030 [id number] / / [id number] 14h R Pp Distal Femur Plate Implanted:Qty: 1 on 08/24/2024 by Elena Arora MD at [facility] Plate Right: Femur [employer] [id number] / / Description:Inactive. Misc c ode used [employer]Rich[employer]/Ort ho Intertan 4.5mm 90mm 85mm Lag Compression Integrate Interlock [id number] - [id number] Implanted:Qty: 1 on 08/24/2024 by Elena Arora MD at [facility] Screw Right: Femur [employer]Rich[employer]/ Ortho [id number] / / [employer]Rich[employer]/Ort ho Screw Bone Locking Femoral Self Tapping Full Thread Low Profile Trigen Stainless Steel 5.0x32.5mm [id number] - [id number] Implanted:Qty: 1 on 08/24/2024 by Elena Arora MD at [facility] Screw Right: Femur [employer]Rich[employer]/ Ortho [id number] / / [employer]hew[employer]Rich[employer]/Ort ho 5mm 35mm Low Profile Internal Hex Femur Screw Bone Trigen [id number] - [id number] Implanted:Qty: 1 on 08/24/2024 by Elena Arora MD at [facility] Screw Right: Femur [employer]Rich[employer]/ Ortho [id number] / / [employer]Rich[employer]/Ort ho Screw Bone Cortical St Evos 4.5x34mm [id number] - [id number] Implanted:Qty: 2 on 08/24/2024 by Elena Arora MD at [facility] Screw Right: Femur [employer]Rich[employer]/ Ortho [id number] / / [employer]hew/Richco/Ort ho Screw Bone Cortical St Evos 4.5x30mm [id number] - [id number] Implanted:Qty: 2 on 08/24/2024 by Elena Arroa MD at [facility] Screw Right: Femur [employer]Rich[employer]/ Ortho [id number] / / [employer]/Richco/Ort ho Screw Bone Cortical St Evos 4.5x36mm [id number] - [id number] Implanted:Qty: 1 on 08/24/2024 by Elena Arora MD at [facility] Screw Right: Femur [employer]Rich[employer]/ Ortho [id number] / / [employer]hew/Rich[employer]/Ort ho Evos 3.5mm 38mm Self Tap Cortex Screw Bone Sterile [id number] - [id number] Implanted:Qty: 1 on 08/24/2024 by Elena Arora MD at [facility] Screw Right: Femur [employer]Rich[employer]/ Ortho [id number] / / [employer]hew/Richco/Ort ho Evos 4.5mm X 64mm Locking Screw Self-Tapping [id number] - [id number] Implanted:Qty: 2 on 08/24/2024 by Elena Arora MD at [facility] Screw Right: Femur [employer]Rich[employer]/ Ortho [id number] / / [employer]hew[employer]Richco/Ort ho Screw Locking Evos 4.5mm X 60mm Self-Tapping [id number] - [id number] Implanted:Qty: 1 on 08/24/2024 by Elena Arora MD at [facility] Screw Right: Femur [employer]Rich[employer]/ Ortho [id number] / / Cypher Cardiac Stent Heart Medtronic Inc Catheter Intrathecal Spinal Segment 2 Piece Silicone Ascenda [id number] 8780 - [id number] Implanted:Qty: 1 on 04/02/2024 by Joshua Ramirez MD at [facility] Left: Back Medtronic Inc 03/10/2026 8780 / / [id number] Medtronic Usa Inc X Pump Infusion Programmable Ulp Ami 20ml Volume 8667-20 - [id number] - [id number] Implanted:Qty: 1 on 04/02/2024 by Joshua Ramirez MD at [facility] Left: Abdomen Medtronic Usa [employer] X 08/08/2025 8667-20 / [id number] / Medtronic Inc Tyrx 3.35x3in Large Envelope Absorbable Polyarylate Minocycline [id number] - [id number] Implanted:Qty: 1 on 04/02/2024 by Joshua Ramirez MD at [facility] Left: Abdomen Medtronic Inc 11/14/2024 [id number] / / [id number] Medtronic Inc Kit Intrathecal Catheter Revision Segment [place] Removal Ascenda 8785 - [id number] Implanted:Qty: 1 on 04/02/2024 by Joshua Ramirez MD at [facility] Left: Abdomen Medtronic Inc 02/19/2026 8785 / / [id number] Pat[employer]hew/Rich[employer]/Ort ho Screw Bone Cortical St Evos 4.5x28mm [id number] - [id number] Implanted:Qty: 1 on 08/24/2024 by Elena Arora MD at [facility] Right: Femur [employer]Rich[employer]/ Ortho [id number] / / [employer]Rich[employer]/Ort ho Cable Bone Cerclage With Crimp Evos Stainless Steel [id number] - [id number] Implanted:Qty: 1 on 08/24/2024 at [facility] Right: Femur [employer]Rich[employer]/ Ortho [id number] / / 3.5 Non Locking Screw Implanted:Qty: 2 on 08/24/2024 by Elena Arora MD at [facility] Right: Femur [employer]hew [id number] / / Description:Inactive. Misc c ode used 4.5 Locking Screw Implanted:Qty: 2 on 08/24/2024 by Elena Arora MD at [facility] Right: Femur [employer]hew [id number] / / Description:Inactive. Misc c ode used Explanted Type Area Picking Machine Operator Helper Device Identifier Shelf Expiration Date Model / Serial / Lot Pat[employer] Nephew/Richco/Orth o Trigen Intertan 11.5mm 38cm Antegrade Intertrochanter Right 125d [id number] - [id number] Explanted:Qty: 1 on 08/24/2024 by Sharan De La Vega MD at [facility] Nail Right: Femur [employer]/Rich[employer]/O rtho [id number] 01/08/2028 [id number] / / [id number] Pat[employer]hew/Richco/Orth o Screw Bone Cortical St Evos 4.5x34mm [id number] - [id number] Explanted:Qty: 1 on 08/24/2024 at [facility] Screw Right: Femur [employer]hew/Richco/O rtho [id number] / / Pat[employer] Nephew/Richco/Orth o Screw Bone Cortical St Evos 4.5x74mm [id number] - [id number] Explanted:Qty: 1 on 08/24/2024 by Elena Arora MD at [facility] Right: Femur [employer]/Richco/O rtho [id number] / / Procedures Procedure Name Priority Date/Time Associated Diagnosis Comments POCT GLUCOSE DEVICE Routine 08/27/2024 6 :33 PM PBX INSPECTOR POCT GLUCOSE DEVICE Routine 08/27/2024 11:58 AM PBX INSPECTOR POCT GLUCOSE DEVICE Routine 08/27/2024 8 :00 AM PBX INSPECTOR CBC WITHOUT DIFFERENTIAL Routine 08/27/2024 3:20 AM PBX INSPECTOR CBC WITHOUT DIFFERENTIAL Timed 08/27/2024 2:54 AM PBX INSPECTOR TRANSFUSE RED BLOOD CELLS Timed 08/26/2024 11:55 PM PBX INSPECTOR PREPARE RBC Timed 08/26/2024 10:56 PM PBX INSPECTOR EGFR Routine 08/26/2024 9:01 PM PBX INSPECTOR DIFFERENTIAL AUTO Routine 08/26/2024 9:0 1 PM PBX INSPECTOR CBC WITH AUTO DIFFERENTIAL Routine 08/26/2024 9:01 PM PBX INSPECTOR PHOSPHORUS Routine 08/26/2024 9:01 PM PBX INSPECTOR MAGNESIUM Routine 08/26/2024 9:01 PM PBX INSPECTOR BASIC METABOLIC PANEL Routine 08/26/2024 9:01 PM PBX INSPECTOR POCT GLUCOSE DEVICE Routine 08/26/2024 7 :59 PM PBX INSPECTOR POCT GLUCOSE DEVICE Routine 08/26/2024 4 :41 PM PBX INSPECTOR XR HAND RIGHT 1 VIEW IP Routine 08/26/2024 2:21 PM PBX INSPECTOR XR HAND LEFT 3 OR MORE VIEWS IP Routine 08/26/2024 2:21 PM PBX INSPECTOR POCT GLUCOSE DEVICE Routine 08/26/2024 12:22 PM PBX INSPECTOR EGFR Routine 08/26/2024 10:26 AM PBX INSPECTOR BASIC METABOLIC PANEL Routine 08/26/2024 10:26 AM PBX INSPECTOR TYPE AND SCREEN Timed 08/26/2024 10:26 AM PBX INSPECTOR POCT GLUCOSE DEVICE Routine 08/26/2024 8 :12 AM PBX INSPECTOR DIFFERENTIAL AUTO Timed 08/26/2024 5:1 7 AM PBX INSPECTOR CBC WITH AUTO DIFFERENTIAL Timed 08/26/2024 5:17 AM PBX INSPECTOR EGFR Routine 08/26/2024 12:32 AM PBX INSPECTOR DIFFERENTIAL AUTO Timed 08/26/2024 12:32 AM PBX INSPECTOR PHOSPHORUS Routine 08/26/2024 12:32 AM PBX INSPECTOR MAGNESIUM Routine 08/26/2024 12:32 AM PBX INSPECTOR BASIC METABOLIC PANEL Routine 08/26/2024 12:32 AM PBX INSPECTOR CBC WITH AUTO DIFFERENTIAL Timed 08/26/2024 12:32 AM PBX INSPECTOR DIFFERENTIAL AUTO Timed 08/25/2024 11:33 PM PBX INSPECTOR CBC WITH AUTO DIFFERENTIAL Timed 08/25/2024 11:33 PM PBX INSPECTOR ED CRITICAL CARE Routine 08/25/2024 9:45 PM PBX INSPECTOR POCT GLUCOSE DEVICE Routine 08/25/2024 9 :13 PM PBX INSPECTOR POCT GLUCOSE DEVICE Routine 08/25/2024 7 :49 PM PBX INSPECTOR POCT GLUCOSE DEVICE Routine 08/25/2024 5 :55 PM PBX INSPECTOR XR HAND RIGHT 3 OR MORE VIEWS IP Routine 08/25/2024 2:50 PM PBX INSPECTOR XR WRIST RIGHT 3 OR MORE VIEWS IP Routine 08/25/2024 2:50 PM PBX INSPECTOR EGFR Routine 08/25/2024 1:30 PM PBX INSPECTOR DIFFERENTIAL AUTO Timed 08/25/2024 1:3 0 PM PBX INSPECTOR CBC WITH AUTO DIFFERENTIAL Timed 08/25/2024 1:30 PM PBX INSPECTOR PHOSPHORUS Routine 08/25/2024 1:30 PM PBX INSPECTOR MAGNESIUM Routine 08/25/2024 1:30 PM PBX INSPECTOR BASIC METABOLIC PANEL Routine 08/25/2024 1:30 PM PBX INSPECTOR POCT GLUCOSE DEVICE Routine 08/25/2024 11:42 AM PBX INSPECTOR POCT GLUCOSE DEVICE Routine 08/25/2024 8 :10 AM PBX INSPECTOR DIFFERENTIAL AUTO Routine 08/24/2024 11:36 PM PBX INSPECTOR CBC WITH AUTO DIFFERENTIAL Routine 08/24/2024 11:36 PM PBX INSPECTOR POCT GLUCOSE DEVICE Routine 08/24/2024 11:30 PM PBX INSPECTOR POC BLOOD GAS AND CHEMISTRIES, ARTERIAL Routine 08/24/2024 10:52 PM PBX INSPECTOR POC BLOOD GAS AND CHEMISTRIES, ARTERIAL Routine 08/24/2024 10:07 PM PBX INSPECTOR TRANSFUSE RED BLOOD CELLS Timed 08/24/2024 9:44 PM PBX INSPECTOR ANESTHESIA ARTERIAL LINE PLACEMENT Routine 08/24/2024 9:43 PM PBX INSPECTOR PERIPHERAL LINE Routine 08/24/2024 9:43 PM PBX INSPECTOR TRANSFUSE PLASMA Routine 08/24/2024 9:39 PM PBX INSPECTOR TRANSFUSE PLASMA Timed 08/24/2024 9:24 PM PBX INSPECTOR PREPARE PLASMA STAT 08/24/2024 9:19 PM PBX INSPECTOR PREPARE RBC STAT 08/24/2024 9:19 PM PBX INSPECTOR POC BLOOD GAS AND CHEMISTRIES, ARTERIAL Routine 08/24/2024 9:16 PM PBX INSPECTOR POCT PARTIAL THROMBOPLASTIN TIME (PTT) Routine 08/24/2024 9:15 PM PBX INSPECTOR POCT PLATELET COUNT AND HEMATOCRIT Routine 08/24/2024 9:15 PM PBX INSPECTOR POCT PROTHROMBIN TIME Routine 08/24/2024 9:14 PM PBX INSPECTOR PREPARE PLASMA Timed 08/24/2024 9:06 PM PBX INSPECTOR TRANSFUSE RED BLOOD CELLS Timed 08/24/2024 8:57 PM PBX INSPECTOR PREPARE RBC STAT 08/24/2024 8:31 PM PBX INSPECTOR FL FLUOROSCOPY < 1 HOUR IP Routine 08/24/2024 8:00 PM PBX INSPECTOR POCT GLUCOSE DEVICE Routine 08/24/2024 6 :36 PM PBX INSPECTOR DC AN PROCEDURE PLACEHOLDER Routine 08/24/2024 6:22 PM PBX INSPECTOR DC AN ELECTIVE ENDOTRACHEAL AIRWAY Routine 08/24/2024 6:22 PM PBX INSPECTOR REMOVAL/EXCHANGE INTERMEDULLARY NAILING - FEMUR 08/24/2024 5:38 PM PBX INSPECTOR Closed fracture of shaft of right femur, unspecified fracture morphology, initial encounter (HCC) DC AN PROCEDURE PLACEHOLDER Routine 08/24/2024 2:53 PM PBX INSPECTOR B CHECK SAMPLE STAT 08/24/2024 2:14 PM PBX INSPECTOR POCT GLUCOSE DEVICE Routine 08/24/2024 2 :10 PM PBX INSPECTOR POCT GLUCOSE DEVICE Routine 08/24/2024 11:51 AM PBX INSPECTOR EGFR STAT 08/24/2024 9:39 AM PBX INSPECTOR DIFFERENTIAL AUTO STAT 08/24/2024 9:3 9 AM PBX INSPECTOR COMPREHENSIVE METABOLIC PANEL STAT 08/24/2024 9:39 AM PBX INSPECTOR CBC WITH AUTO DIFFERENTIAL STAT 08/24/2024 9:39 AM PBX INSPECTOR PHOSPHORUS STAT 08/24/2024 9:39 AM PBX INSPECTOR MAGNESIUM STAT 08/24/2024 9:39 AM PBX INSPECTOR POCT GLUCOSE DEVICE Routine 08/24/2024 8 :16 AM PBX INSPECTOR POTASSIUM, WHOLE BLOOD Timed 08/24/2024 3:38 AM PBX INSPECTOR POCT GLUCOSE DEVICE Routine 08/23/2024 10:27 PM PBX INSPECTOR POCT GLUCOSE DEVICE Routine 08/23/2024 9 :[address] PELVIS WO CONTRAST ED Urgent/IP Urgent 08/23/2024 7:[address] CERVICAL SPINE WO CONTRAST ED 08/23/2024 5:30 PM PBX INSPECTOR LIPID PANEL STAT 08/23/2024 4:49 PM PBX INSPECTOR EGFR STAT 08/23/2024 4:49 PM PBX INSPECTOR COMPREHENSIVE METABOLIC PANEL STAT 08/23/2024 4:49 PM PBX INSPECTOR DC INJECTION AA&/STRD OTHER PERIPHERAL NERVE/BRANCH Routine 08/23/2024 4:15 PM PBX INSPECTOR XR HIP RIGHT 2 OR 3 VIEWS ED Urgent/IP Urgent 08/23/2024 3:51 PM PBX INSPECTOR XR FEMUR RIGHT 2 OR MORE VIEWS ED Urgent/IP Urgent 08/23/2024 3:35 PM PBX INSPECTOR XR PELVIS 1 OR 2 VIEWS ED 08/23/2024 3:34 PM PBX INSPECTOR XR CHEST 1 VIEW ED 08/23/2024 3:34 PM PBX INSPECTOR DIFFERENTIAL AUTO STAT 08/23/2024 3:0 9 PM PBX INSPECTOR TYPE AND SCREEN STAT 08/23/2024 3:09 PM PBX INSPECTOR CBC WITH AUTO DIFFERENTIAL STAT 08/23/2024 3:09 PM PBX INSPECTOR PROTIME-INR STAT 08/23/2024 3:09 PM PBX INSPECTOR APTT STAT 08/23/2024 3:09 PM PBX INSPECTOR NEURO CT OUTSIDE REFERENCE Routine 08/23/2024 2:36 PM PBX INSPECTOR XR TRANSFER OF OUTSIDE FILMS Routine 08/23/2024 2:33 PM PBX INSPECTOR XR TRANSFER OF OUTSIDE FILMS Routine 08/23/2024 2:30 PM PBX INSPECTOR POCT KETONE, BLOOD Routine 08/23/2024 2: 05 PM PBX INSPECTOR POCT GLUCOSE DEVICE Routine 08/23/2024 2 :04 PM PBX INSPECTOR DEXA AXIAL SKELETON BONE DENSITY 1 OR MORE SITES Schedule Routine, Read Routine (OP Routine) 06/02/2021 3:15 PM CDT Postmenopause HEMOGLOBIN A1C Routine 05/22/2021 9:55 AM CDT Uncontrolled type 2 diabetes mellitus with hyperglycemia (CMS/HCC) (HCC) DIABETIC EYE EXAM Routine 12/10/2020 from Last 3 Months or Most Recently Relevant to Health Maintenance Results * POCT glucose (08/27/2024 6:33 PM PBX INSPECTOR) Glucose, POC 139 70 - 199 mg/dL Blood 08/27/2024 6:33 PM PBX INSPECTOR 08/27/2024 6:33 PM PBX INSPECTOR Tashi Parisi MD LAB POCT ORDERABLES - DEV ICE Final Result Performing Organization Address [facility] de Phone Number [facility] [place] [address] * (ABNORMAL) POCT glucose (08/27/2024 11:58 AM PBX INSPECTOR) Glucose, POC 203(H) 70 - 199 mg/dL Comment:Glu2: RN/MD Notified Glucose comment 1 Glu2: RN/MD Notified [facility] Blood 08/27/2024 11:5 8 AM PBX INSPECTOR 08/27/2024 11:58 AM PBX INSPECTOR Tashi Parisi MD LAB POCT ORDERABLES - DEV ICE Final Result Performing Organization Address [facility] de Phone Number [facility] [place] [address] * POCT glucose (08/27/2024 8:00 AM PBX INSPECTOR) Glucose, POC 146 70 - 199 mg/dL Blood 08/27/2024 8:00 AM PBX INSPECTOR 08/27/2024 8:00 AM PBX INSPECTOR Tashi Parisi MD LAB POCT ORDERABLES - DEV ICE Final Result Performing Organization Address [facility] de Phone Number [facility] [place] [address] * (ABNORMAL) CBC without differential (08/27/2024 3:20 AM PBX INSPECTOR) [facility] WBC 10.4(H) 3.8 - 9.9 K/cumm Hgb 8.5(L) 11.9 - 15.5 g/dL [facility] Hct 25.9(L) 35.6 - 45.5 % [facility] Plt 171 150 - 400 K/cumm [facility] MPV 9.9 9.1 - 12.3 fL [facility] RBC 2.98(L) 3.90 - 5.20 M/cumm [facility] MCV 86.9 81.3 - 96.4 fL [facility] MCH 28.5 27.1 - 33.3 pg [facility] [facility] MCHC 32.8 32.3 - 35.7 g/dL [facility] RDW CV 15.7(H) 11.1 - 14.9 % [facility] RDW SD 49.5(H) 35.7 - 48.1 fL [facility] NRBC abs 0.00 0.00 - 0.01 K/cumm [facility] Blood 08/27/2024 3:20 AM PBX INSPECTOR 08/27/2024 5:04 AM PBX INSPECTOR Tashi Parisi MD LAB BLOOD ORDERABLES Anna mari Result [facility] [place] [address] * (ABNORMAL) CBC without differential (08/27/2024 2:54 AM PBX INSPECTOR) WBC 10.1(H) 3.8 - 9.9 K/cumm Hgb 8.5(L) 11.9 - 15.5 g/dL [facility] Hct 25.7(L) 35.6 - 45.5 % [facility] Plt 173 150 - 400 K/cumm [facility] MPV 9.8 9.1 - 12.3 fL [facility] RBC 2.92(L) 3.90 - 5.20 M/cumm [facility] MCV 88.0 81.3 - 96.4 fL [facility] MCH 29.1 27.1 - 33.3 pg [facility] MCHC 33.1 32.3 - 35.7 g/dL [facility] RDW CV 15.4(H) 11.1 - 14.9 % [facility] RDW SD 49.6(H) 35.7 - 48.1 fL [facility] NRBC abs 0.00 0.00 - 0.01 K/cumm [facility] Blood 08/27/2024 2:54 AM PBX INSPECTOR 08/27/2024 3:32 AM PBX INSPECTOR Narrative [facility] - 08/27/2024 3:40 AM PBX INSPECTOR 1 hour after transfusion of red blood cells is complete Tashi Parisi MD LAB BLOOD ORDERABLES Anna l Result Performing Organization Address [facility] Co de Phone Number [facility] [employer] [place] [address] * Transfuse RBC (08/27/2024 2:20 AM PBX INSPECTOR) Blood Tashi Parisi MD BLOOD TRANSFUSION ORDERAB LES Final Result Performing Organization Address [facility] Co de Phone Number [facility] [employer] [place] [address] * Prepare RBC: 1 Units (08/26/2024 10:56 PM PBX INSPECTOR) Product code [id number] Unit Number [id number] [facility] Product Blood Type OPOS [facility] Dispense Status PRESUMED TRANSFUSED [facility] Blood 08/26/2024 10:5 6 PM PBX INSPECTOR 08/26/2024 10:57 PM PBX INSPECTOR Narrative [facility] - 08/27/2024 4:01 PM PBX INSPECTOR Are special requirements needed? (All products are leukoreduced and CMV- safe)- >No Date required:-[id number] LRRBC # of [id number] Reasons:-Cardiovascular disease, Hgb <8 g/dL} Tashi Parisi MD BLOOD BANK PRODUCT ORDERA BLES Final Result Performing Organization Address [facility] Co de Phone Number [facility] [employer] [place] [address] * (ABNORMAL) eGFR (08/26/2024 9:01 PM PBX INSPECTOR) Pathologist [facility] eGFR 36(L) >=60 mL/min/1. 73 m2 Comment: [...] last reviewed 2021. Blood 08/26/2024 9:01 PM PBX INSPECTOR 08/26/2024 9:42 PM PBX INSPECTOR us Radha Kirk PASTA MAKER LAB BLOOD ORDERABLES Final Result [facility] Department [place] [address] * (ABNORMAL) Differential, auto (08/26/2024 9:01 PM PBX INSPECTOR) Pathologist [facility] Neutrophil abs 7.3(H) 1.5 - 6.5 K/cumm Imm gran abs 0.1 0.0 - 0.1 K/cumm [facility] Lymphocyte abs 1.6 0.8 - 3.3 K/cumm [facility] Monocyte abs 1.0(H) 0.2 - 0.8 K/cumm [facility] Eosinophil abs 0.3 0.0 - 0.5 K/cumm [facility] Basophil abs 0.1 0.0 - 0.1 K/cumm [facility] Neutrophil pct 71.0 % [facility] Comment: Interpretive Data Percent cell count reference ranges are not reported, since discordance with absolute values may lead to misinterpretation of CBC data. Current Interpretive Data was last revised on 2017. Imm gran pct 0.8 % [facility] Comment: Interpretive Data Percent cell count reference ranges are not reported, since discordance with absolute values may lead to misinterpretation of CBC data. Current Interpretive Data was last revised on 2017. Lymphocyte pct 15.4 % [facility] Comment: Interpretive Data Percent cell count reference ranges are not reported, since discordance with absolute values may lead to misinterpretation of CBC data. Current Interpretive Data was last revised on 2017. Monocyte pct 9.5 % [facility] Comment: Interpretive Data Percent cell count reference ranges are not reported, since discordance with absolute values may lead to misinterpretation of CBC data. Current Interpretive Data was last revised on 2017. Eosinophil pct 2.8 % [facility] Comment: Interpretive Data Percent cell count reference ranges are not reported, since discordance with absolute values may lead to misinterpretation of CBC data. Current Interpretive Data was last revised on 2017. Basophil pct 0.5 % [facility] Comment: Interpretive Data Percent cell count reference ranges are not reported, since discordance with absolute values may lead to misinterpretation of CBC data. Current Interpretive Data was last revised on 2017. Blood 08/26/2024 9:01 PM PBX INSPECTOR 08/26/2024 9:42 PM PBX INSPECTOR us Radha Kirk PASTA [employer] LAB BLOOD ORDERABLES Final Result [facility] Department [place] [address] * (ABNORMAL) CBC with auto differential (08/26/2024 9:01 PM PBX INSPECTOR) WBC 10.3(H) 3.8 - 9.9 K/cumm Hgb 7.7(L) 11.9 - 15.5 g/dL [facility] Hct 23.6(L) 35.6 - 45.5 % [facility] Plt 185 150 - 400 K/cumm [facility] MPV 9.8 9.1 - 12.3 fL [facility] RBC 2.61(L) 3.90 - 5.20 M/cumm [facility] MCV 90.4 81.3 - 96.4 fL [facility] MCH 29.5 27.1 - 33.3 pg [facility] MCHC 32.6 32.3 - 35.7 g/dL [facility] RDW CV 15.1(H) 11.1 - 14.9 % [facility] RDW SD 49.7(H) 35.7 - 48.1 fL [facility] NRBC abs 0.00 0.00 - 0.01 K/cumm [facility] Blood 08/26/2024 9:01 PM PBX INSPECTOR 08/26/2024 9:42 PM PBX INSPECTOR Radha Kirk PA[employer] LAB BLOOD ORDERABLES Final Result [facility] Department [place] [address] * (ABNORMAL) Phosphorus (08/26/2024 9:01 PM PBX INSPECTOR) Phosphorus, pl 1.6(L) 2.3 - 4.5 mg/dL Blood 08/26/2024 9:01 PM PBX INSPECTOR 08/26/2024 9:42 PM PBX INSPECTOR Radha Kirk PASTA [employer]ER LAB BLOOD ORDERABLES Final Result [facility] Department [place] [address] * Magnesium (08/26/2024 9:01 PM PBX INSPECTOR) Magnesium 1.7 1.4 - 2.5 mg/dL Blood 08/26/2024 9:01 PM PBX INSPECTOR 08/26/2024 9:42 PM PBX INSPECTOR Radha Kirk PASTA [employer]KER LAB BLOOD ORDERABLES Final Result [facility] Department [place] [address] * (ABNORMAL) Basic metabolic panel (08/26/2024 9:01 PM PBX INSPECTOR) [facility] Sodium 140 135 - 145 mmol/L Potassium, pl 3.7 3.3 - 4.9 mmol/L [facility] Chloride 111(H) 97 - 110 mmol/L [facility] CO2 21(L) 22 - 32 mmol/L [facility] Anion gap 8 2 - 15 mmol/L [facility] BUN 40(H) 6 - 25 mg/dL [facility] Creatinine 1.43(H) 0.60 - 1.10 mg/dL [facility] Glucose 150 70 - 199 mg/dL [facility] Comment: Interpretive Data Fasting glucose >/= 126 [...] 2022. Calcium 8.4(L) 8.5 - 10.3 mg/dL [facility] Blood 08/26/2024 9:01 PM PBX INSPECTOR 08/26/2024 9:42 PM PBX INSPECTOR Radha Kirk PASTA [employer]KER LAB BLOOD ORDERABLES Final Result Performing Organization Address City/[facility]/ZIP Co de Phone Number [facility] Department [place] [address] * POCT glucose (08/26/2024 7:59 PM PBX INSPECTOR) Glucose, POC 168 70 - 199 mg/dL Blood 08/26/2024 7:59 PM PBX INSPECTOR 08/26/2024 7:59 PM PBX INSPECTOR Tashi Parisi MD LAB POCT ORDERABLES - DEV ICE Final Result Performing Organization Address [facility] de Phone Number [facility] [place] [address] * (ABNORMAL) POCT glucose (08/26/2024 4:41 PM PBX INSPECTOR) Glucose, POC 227(H) 70 - 199 mg/dL Comment:Glu2: RN/MD Notified Glucose comment 1 Glu2: RN/MD Notified [facility] Blood 08/26/2024 4:41 PM PBX INSPECTOR 08/26/2024 4:41 PM PBX INSPECTOR Tashi Parisi MD LAB POCT ORDERABLES - DEV ICE Final Result Performing Organization Address [facility] de Phone Number [facility] [employer] [place] [address] * XR Hand Right 1 View (08/26/2024 2:21 PM PBX INSPECTOR) Anatomical Region Laterality Modality Hand Right Computed Radiogr aphy 08/26/2024 3:03 PM PBX INSPECTOR Impressions 08/26/2024 3:03 PM PBX INSPECTOR 1. Mild bilateral scapholunate interval widening. This could be further evaluated with clenched fist views of both hands, and dedicated lateral radiographs of both wrists with attention to technique to better evaluate alignment. 2. Bilateral wrists chondrocalcinosis. 3. 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 Electronically signed by: Luis M Rogers D.O. Narrative 08/26/2024 3:03 PM PBX INSPECTOR EXAMINATION: XR HAND LEFT 3 OR MORE VIEWS, XR HAND RIGHT 1 VIEW HISTORY: pain FINDINGS: Comparison is made to 08/25/2024 radiographs of the right hand. Single view evaluation of the right hand with redemonstration of severe base of thumb and dmvz-bg-zvmppafb triscaphe osteoarthritis as well as polyarticular interphalangeal [...] redemonstration of severe base of thumb and irqj-oi-rcbqjyii triscaphe osteoarthritis as well as polyarticular interphalangeal [...] 3 or More Views (08/26/2024 2:21 PM PBX INSPECTOR) Anatomical Region Laterality Modality Upper Extremities, Hand Left Computed Radiography 08/26/2024 3:03 PM PBX INSPECTOR Impressions 08/26/2024 3:03 PM PBX INSPECTOR 1. Mild bilateral scapholunate interval widening. This could be further evaluated with clenched fist views of both hands, and dedicated lateral radiographs of both wrists with attention to technique to better evaluate alignment. 2. Bilateral wrists chondrocalcinosis. 3. 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 Electronically signed by: Luis M Rogers D.O. Narrative 08/26/2024 3:03 PM PBX INSPECTOR EXAMINATION: XR HAND LEFT 3 OR MORE VIEWS, XR HAND RIGHT 1 VIEW HISTORY: pain FINDINGS: Comparison is made to 08/25/2024 radiographs of the right hand. Single view evaluation of the right hand with redemonstration of severe base of thumb and porm-mz-brfuerva triscaphe osteoarthritis as well as polyarticular interphalangeal [...] redemonstration of severe base of thumb and hois-yn-fanxkdbr triscaphe osteoarthritis as well as polyarticular interphalangeal [...] by: Luis M Rogers D.O. Radha Kirk PASTA MAKER IMG XR PROCEDURES Fi nal Result * (ABNORMAL) POCT glucose (08/26/2024 12:22 PM PBX INSPECTOR) [facility] Glucose, POC 227(H) 70 - 199 mg/dL Comment:Glu2: RN/ Notified Glucose comment 1 Glu2: LUCY/ Notified ROCHELLE WILLNIGHAM Blood 08/26/2024 12:2 2 PM PBX INSPECTOR 08/26/2024 12:22 PM PBX INSPECTOR Tashi Parisi MD LAB POCT ORDERABLES - DEV ICE Final Result [facility] Department [place] [address] * (ABNORMAL) eGFR (08/26/2024 10:26 AM PBX INSPECTOR) [facility] eGFR 43(L) >=60 mL/min/1. 73 m2 Comment: [...] reviewed 2021. Blood 08/26/2024 10:2 6 AM PBX INSPECTOR 08/26/2024 11:05 AM PBX INSPECTOR Radha Kirk LAB BLOOD ORDERABLES Final Result Performing Organization Address City/[facility] Co de Phone Number [facility] Department [place] [address] * Type and screen (08/26/2024 10:26 AM PBX INSPECTOR) Pathologist [facility] Markos, indirect Negative ABO Rh O Positive [facility] Blood 08/26/2024 10:2 6 AM PBX INSPECTOR 08/26/2024 10:51 AM PBX INSPECTOR Narrative [facility] - 08/26/2024 12:15 PM PBX INSPECTOR Has the patient had Daratumumab or Isatuximab in the past 6 months?->Unknown Radha Kirk PASTA MAKER LAB BLOOD BANK TEST ORDERABLES Final Result Performing Organization Address City/[facility]/ZIP Co de Phone Number [facility] Department [place] [address] * (ABNORMAL) Basic metabolic panel (08/26/2024 10:26 AM PBX INSPECTOR) Pathologist [facility] Sodium 141 135 - 145 mmol/L Potassium, pl 3.4 3.3 - 4.9 mmol/L [facility] Chloride 109 97 - 110 mmol/L [facility] CO2 23 22 - 32 mmol/L [facility] Anion gap 9 2 - 15 mmol/L [facility] BUN 37(H) 6 - 25 mg/dL [facility] Creatinine 1.23(H) 0.60 - 1.10 mg/dL [facility] Glucose 235(H) 70 - 199 mg/dL [facility] Comment: Interpretive Data Fasting glucose >/= 126 [...] 2022. Calcium 8.9 8.5 - 10.3 mg/dL [facility] Blood 08/26/2024 10:2 6 AM PBX INSPECTOR 08/26/2024 10:48 AM PBX INSPECTOR us Radha Kirk NP LAB BLOOD ORDERABLES Final Result Performing Organization Address City/[facility]/ZIP Co de Phone Number [facility] Department [place] [employer] [place] [address] * POCT glucose (08/26/2024 8:12 AM PBX INSPECTOR) [facility] Signature Glucose, POC 163 70 - 199 mg/dL Blood 08/26/2024 8:12 AM PBX INSPECTOR 08/26/2024 8:12 AM PBX INSPECTOR Tashi Parisi MD LAB POCT ORDERABLES - DEV ICE Final Result Performing Organization Address [facility]/ZIP Co de Phone Number [facility] Department [place] [address] * (ABNORMAL) Differential, auto (08/26/2024 5:17 AM PBX INSPECTOR) Neutrophil abs 7.3(H) 1.5 - 6.5 K/cumm Imm gran abs 0.0 0.0 - 0.1 K/cumm [facility] Lymphocyte abs 1.6 0.8 - 3.3 K/cumm [facility] Monocyte abs 1.1(H) 0.2 - 0.8 K/cumm [facility] Eosinophil abs 0.2 0.0 - 0.5 K/cumm [facility] Basophil abs 0.1 0.0 - 0.1 K/cumm [facility] Neutrophil pct 70.9 % [facility] Comment: Interpretive Data Percent cell count reference ranges are not reported, since discordance with absolute values may lead to misinterpretation of CBC data. Current Interpretive Data was last revised on 2017. Imm gran pct 0.4 % [facility] Comment: Interpretive Data Percent cell count reference ranges are not reported, since discordance with absolute values may lead to misinterpretation of CBC data. Current Interpretive Data was last revised on 2017. Lymphocyte pct 15.2 % [facility] Comment: Interpretive Data Percent cell count reference ranges are not reported, since discordance with absolute values may lead to misinterpretation of CBC data. Current Interpretive Data was last revised on 2017. Monocyte pct 11.0 % [facility] Comment: Interpretive Data Percent cell count reference ranges are not reported, since discordance with absolute values may lead to misinterpretation of CBC data. Current Interpretive Data was last revised on 2017. Eosinophil pct 1.9 % [facility] Comment: Interpretive Data Percent cell count reference ranges are not reported, since discordance with absolute values may lead to misinterpretation of CBC data. Current Interpretive Data was last revised on 2017. Basophil pct 0.6 % [facility] Comment: Interpretive Data Percent cell count reference ranges are not reported, since discordance with absolute values may lead to misinterpretation of CBC data. Current Interpretive Data was last revised on 2017. Blood 08/26/2024 5:17 AM PBX INSPECTOR 08/26/2024 5:24 AM PBX INSPECTOR Radha Kirk PASTA MAKER LAB BLOOD ORDERABLES Final Result Performing Organization Address City/[facility]/ZIP Co de Phone Number [facility] Department [place] [address] * (ABNORMAL) CBC with auto differential (08/26/2024 5:17 AM PBX INSPECTOR) [facility] WBC 10.2(H) 3.8 - 9.9 K/cumm Hgb 8.5(L) 11.9 - 15.5 g/dL [facility] Hct 25.5(L) 35.6 - 45.5 % [facility] Plt 166 150 - 400 K/cumm [facility] MPV 9.4 9.1 - 12.3 fL [facility] RBC 2.92(L) 3.90 - 5.20 M/cumm [facility] MCV 87.3 81.3 - 96.4 fL [facility] MCH 29.1 27.1 - 33.3 pg [facility] MCHC 33.3 32.3 - 35.7 g/dL [facility] RDW CV 15.0(H) 11.1 - 14.9 % [facility] RDW SD 47.7 35.7 - 48.1 fL [facility] NRBC abs 0.00 0.00 - 0.01 K/cumm [facility] Blood 08/26/2024 5:17 AM PBX INSPECTOR 08/26/2024 5:24 AM PBX INSPECTOR us Radha Kirk PASTA MAKER LAB BLOOD ORDERABLES Final Result [facility] Department [place] [address] * (ABNORMAL) eGFR (08/26/2024 12:32 AM PBX INSPECTOR) [facility] eGFR 34(L) >=60 mL/min/1. 73 m2 Comment: [...] reviewed 2021. Blood 08/26/2024 12:3 2 AM PBX INSPECTOR 08/26/2024 12:47 AM PBX INSPECTOR us Radha Kirk PASTA MAKER LAB BLOOD ORDERABLES Final Result [facility] Department [place] [address] * (ABNORMAL) Differential, auto (08/26/2024 12:32 AM PBX INSPECTOR) Neutrophil abs 7.7(H) 1.5 - 6.5 K/cumm Imm gran abs 0.0 0.0 - 0.1 K/cumm [facility] Lymphocyte abs 1.7 0.8 - 3.3 K/cumm [facility] Monocyte abs 1.4(H) 0.2 - 0.8 K/cumm [facility] Eosinophil abs 0.1 0.0 - 0.5 K/cumm [facility] Basophil abs 0.0 0.0 - 0.1 K/cumm [facility] Neutrophil pct 69.5 % [facility] Comment: Interpretive Data Percent cell count reference ranges are not reported, since discordance with absolute values may lead to misinterpretation of CBC data. Current Interpretive Data was last revised on 2017. Imm gran pct 0.4 % [facility] Comment: Interpretive Data Percent cell count reference ranges are not reported, since discordance with absolute values may lead to misinterpretation of CBC data. Current Interpretive Data was last revised on 2017. Lymphocyte pct 15.8 % [facility] Comment: Interpretive Data Percent cell count reference ranges are not reported, since discordance with absolute values may lead to misinterpretation of CBC data. Current Interpretive Data was last revised on 2017. Monocyte pct 12.7 % [facility] Comment: Interpretive Data Percent cell count reference ranges are not reported, since discordance with absolute values may lead to misinterpretation of CBC data. Current Interpretive Data was last revised on 2017. Eosinophil pct 1.2 % [facility] Comment: Interpretive Data Percent cell count reference ranges are not reported, since discordance with absolute values may lead to misinterpretation of CBC data. Current Interpretive Data was last revised on 2017. Basophil pct 0.4 % [facility] Comment: Interpretive Data Percent cell count reference ranges are not reported, since discordance with absolute values may lead to misinterpretation of CBC data. Current Interpretive Data was last revised on 2017. Blood 08/26/2024 12:3 2 AM PBX INSPECTOR 08/26/2024 12:47 AM PBX INSPECTOR us Radha Kirk PASTA MAKER LAB BLOOD ORDERABLES Final Result [facility] Department [place] [address] * (ABNORMAL) CBC with auto differential (08/26/2024 12:32 AM PBX INSPECTOR) WBC 11.0(H) 3.8 - 9.9 K/cumm Hgb 8.3(L) 11.9 - 15.5 g/dL [facility] Hct 24.8(L) 35.6 - 45.5 % [facility] Plt 157 150 - 400 K/cumm [facility] MPV 10.1 9.1 - 12.3 fL [facility] RBC 2.80(L) 3.90 - 5.20 M/cumm [facility] MCV 88.6 81.3 - 96.4 fL [facility] MCH 29.6 27.1 - 33.3 pg [facility] MCHC 33.5 32.3 - 35.7 g/dL [facility] RDW CV 14.9 11.1 - 14.9 % [facility] RDW SD 48.0 35.7 - 48.1 fL [facility] NRBC abs 0.00 0.00 - 0.01 K/cumm [facility] Blood 08/26/2024 12:3 2 AM PBX INSPECTOR 08/26/2024 12:47 AM PBX INSPECTOR Radha Kirk PASTA MAKER LAB BLOOD ORDERABLES Final Result Performing Organization Address [facility] Co de Phone Number [facility] [place] [address] * (ABNORMAL) Phosphorus (08/26/2024 12:32 AM PBX INSPECTOR) Phosphorus, pl 2.2(L) 2.3 - 4.5 mg/dL Blood 08/26/2024 12:3 2 AM PBX INSPECTOR 08/26/2024 12:47 AM PBX INSPECTOR Radha Kirk PASTA MAKER LAB BLOOD ORDERABLES Final Result Performing Organization Address [facility] de Phone Number [facility] Department [place] [address] * Magnesium (08/26/2024 12:32 AM PBX INSPECTOR) Magnesium 1.8 1.4 - 2.5 mg/dL Blood 08/26/2024 12:3 2 AM PBX INSPECTOR 08/26/2024 12:47 AM PBX INSPECTOR Radha Kirk PASTA MAKER LAB BLOOD ORDERABLES Final Result Performing Organization Address [facility] Co de [facility] Number [facility] [place] [address] * (ABNORMAL) Basic metabolic panel (08/26/2024 12:32 AM PBX INSPECTOR) [facility] Sodium 136 135 - 145 mmol/L Potassium, pl 3.5 3.3 - 4.9 mmol/L [facility] Chloride 110 97 - 110 mmol/L [facility] CO2 19(L) 22 - 32 mmol/L [facility] Anion gap 7 2 - 15 mmol/L [facility] BUN 45(H) 6 - 25 mg/dL [facility] Creatinine 1.50(H) 0.60 - 1.10 mg/dL [facility] Glucose 139 70 - 199 mg/dL [facility] Comment: Interpretive Data Fasting glucose >/= 126 [...] 2022. Calcium 8.6 8.5 - 10.3 mg/dL [facility] Blood 08/26/2024 12:3 2 AM PBX INSPECTOR 08/26/2024 12:47 AM PBX INSPECTOR Radha Kirk PASTA MAKER LAB BLOOD ORDERABLES Final Result [facility] Department [place] [address] * (ABNORMAL) Differential, auto (08/25/2024 11:33 PM PBX INSPECTOR) [facility] Neutrophil abs 7.5(H) 1.5 - 6.5 K/cumm Imm gran abs 0.1 0.0 - 0.1 K/cumm [facility] Lymphocyte abs 1.7 0.8 - 3.3 K/cumm [facility] Monocyte abs 1.4(H) 0.2 - 0.8 K/cumm [facility] Eosinophil abs 0.1 0.0 - 0.5 K/cumm [facility] Basophil abs 0.0 0.0 - 0.1 K/cumm [facility] Neutrophil pct 69.0 % [facility] Comment: Interpretive Data Percent cell count reference ranges are not reported, since discordance with absolute values may lead to misinterpretation of CBC data. Current Interpretive Data was last revised on 2017. Imm gran pct 0.7 % [facility] Comment: Interpretive Data Percent cell count reference ranges are not reported, since discordance with absolute values may lead to misinterpretation of CBC data. Current Interpretive Data was last revised on 2017. Lymphocyte pct 16.0 % [facility] Comment: Interpretive Data Percent cell count reference ranges are not reported, since discordance with absolute values may lead to misinterpretation of CBC data. Current Interpretive Data was last revised on 2017. Monocyte pct 12.7 % [facility] Comment: Interpretive Data Percent cell count reference ranges are not reported, since discordance with absolute values may lead to misinterpretation of CBC data. Current Interpretive Data was last revised on 2017. Eosinophil pct 1.2 % [facility] Comment: Interpretive Data Percent cell count reference ranges are not reported, since discordance with absolute values may lead to misinterpretation of CBC data. Current Interpretive Data was last revised on 2017. Basophil pct 0.4 % [facility] Comment: Interpretive Data Percent cell count reference ranges are not reported, since discordance with absolute values may lead to misinterpretation of CBC data. Current Interpretive Data was last revised on 2017. Blood 08/25/2024 11:3 3 PM PBX INSPECTOR 08/26/2024 12:47 AM PBX INSPECTOR us Radha Kirk NP LAB BLOOD ORDERABLES Final Result [facility] Department [place] [address] * (ABNORMAL) CBC with auto differential (08/25/2024 11:33 PM PBX INSPECTOR) WBC 10.9(H) 3.8 - 9.9 K/cumm Hgb 8.2(L) 11.9 - 15.5 g/dL [facility] Hct 25.1(L) 35.6 - 45.5 % [facility] Plt 160 150 - 400 K/cumm [facility] MPV 9.9 9.1 - 12.3 fL [facility] RBC 2.83(L) 3.90 - 5.20 M/cumm [facility] MCV 88.7 81.3 - 96.4 fL [facility] MCH 29.0 27.1 - 33.3 pg [facility] MCHC 32.7 32.3 - 35.7 g/dL [facility] RDW CV 14.9 11.1 - 14.9 % [facility] RDW SD 48.1 35.7 - 48.1 fL [facility] NRBC abs 0.00 0.00 - 0.01 K/cumm [facility] Blood 08/25/2024 11:3 3 PM PBX INSPECTOR 08/26/2024 12:47 AM PBX INSPECTOR us Radha Kirk PASTA MAKER LAB BLOOD ORDERABLES Final Result [facility] Department [place] [address] * Critical Care (08/25/2024 9:45 PM PBX INSPECTOR) Narrative Felice Goyal MD - 08/25/2024 9:45 PM PBX INSPECTOR Felice Goyal MD 08/25/2024 9:46 PM Critical [...] Result * POCT glucose (08/25/2024 9:13 PM PBX INSPECTOR) Glucose, POC 194 70 - 199 mg/dL Blood 08/25/2024 9:13 PM PBX INSPECTOR 08/25/2024 9:13 PM PBX INSPECTOR us Tashi Parisi MD LAB POCT ORDERABLES - DEV ICE Final Result Performing Organization Address [facility]/ZIP Co de Phone Number [facility] Department [place] [employer] [place] [address] * (ABNORMAL) POCT glucose (08/25/2024 7:49 PM PBX INSPECTOR) Glucose, POC 238(H) 70 - 199 mg/dL Blood 08/25/2024 7:49 PM PBX INSPECTOR 08/25/2024 7:49 PM PBX INSPECTOR us Tashi Parisi MD LAB POCT ORDERABLES - DEV ICE Final Result Performing Organization Address [facility] Co de Phone Number [facility] [place] [address] * POCT glucose (08/25/2024 5:55 PM PBX INSPECTOR) Glucose, POC 150 70 - 199 mg/dL Blood 08/25/2024 5:55 PM PBX INSPECTOR 08/25/2024 5:55 PM PBX INSPECTOR Tashi Parisi MD LAB POCT ORDERABLES - DEV ICE Final Result [facility] Department [place] [address] * XR Hand Right 3 or More Views (08/25/2024 2:50 PM PBX INSPECTOR) Anatomical Region Laterality Modality Upper Extremities, Hand Right Computed Radiography 08/25/2024 4:42 PM PBX INSPECTOR Impressions 08/25/2024 4:55 PM PBX INSPECTOR 1. 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 2. Mild scapholunate interval widening. Dictated by: Carlos Min MD The radiology attending physician has personally reviewed this study, and had reviewed and/or edited this written report and agrees with it. Electronically signed by: Félix Burdick M.D. Narrative 08/25/2024 4:55 PM PBX INSPECTOR EXAMINATION: XR WRIST RIGHT 3 OR MORE [...] by: Félix Burdick M.D. us Radha Kirk PASTA [employer] IMG XR PROCEDURES Fi nal Result * XR Wrist Right 3 or More Views (08/25/2024 2:50 PM PBX INSPECTOR) Anatomical Region Laterality Modality Upper Extremities, Wrist Right Compute d Radiography 08/25/2024 4:42 PM PBX INSPECTOR Impressions 08/25/2024 4:55 PM PBX INSPECTOR 1. 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 2. Mild scapholunate interval widening. Dictated by: Carlos Min MD The radiology attending physician has personally reviewed this study, and had reviewed and/or edited this written report and agrees with it. Electronically signed by: Félix Burdick M.D. Narrative 08/25/2024 4:55 PM PBX INSPECTOR EXAMINATION: XR WRIST RIGHT 3 OR MORE [...] Result * (ABNORMAL) eGFR (08/25/2024 1:30 PM PBX INSPECTOR) eGFR 35(L) >=60 mL/min/1. 73 m2 Comment: [...] last reviewed 2021. Blood 08/25/2024 1:30 PM PBX INSPECTOR 08/25/2024 2:39 PM PBX INSPECTOR us Felice Goyal MD LAB BLOOD ORDERABLES F inal Result [facility] Department [place] [address] * (ABNORMAL) Differential, auto (08/25/2024 1:30 PM PBX INSPECTOR) Neutrophil abs 7.8(H) 1.5 - 6.5 K/cumm Imm gran abs 0.1 0.0 - 0.1 K/cumm [facility] Lymphocyte abs 1.2 0.8 - 3.3 K/cumm [facility] Monocyte abs 0.9(H) 0.2 - 0.8 K/cumm [facility] Eosinophil abs 0.0 0.0 - 0.5 K/cumm [facility] Basophil abs 0.0 0.0 - 0.1 K/cumm [facility] Neutrophil pct 78.3 % [facility] Comment: Interpretive Data Percent cell count reference ranges are not reported, since discordance with absolute values may lead to misinterpretation of CBC data. Current Interpretive Data was last revised on 2017. Imm gran pct 0.6 % [facility] Comment: Interpretive Data Percent cell count reference ranges are not reported, since discordance with absolute values may lead to misinterpretation of CBC data. Current Interpretive Data was last revised on 2017. Lymphocyte pct 12.0 % [facility] Comment: Interpretive Data Percent cell count reference ranges are not reported, since discordance with absolute values may lead to misinterpretation of CBC data. Current Interpretive Data was last revised on 2017. Monocyte pct 8.9 % [facility] Comment: Interpretive Data Percent cell count reference ranges are not reported, since discordance with absolute values may lead to misinterpretation of CBC data. Current Interpretive Data was last revised on 2017. Eosinophil pct 0.0 % [facility] Comment: Interpretive Data Percent cell count reference ranges are not reported, since discordance with absolute values may lead to misinterpretation of CBC data. Current Interpretive Data was last revised on 2017. Basophil pct 0.2 % [facility] Comment: Interpretive Data Percent cell count reference ranges are not reported, since discordance with absolute values may lead to misinterpretation of CBC data. Current Interpretive Data was last revised on 2017. Blood 08/25/2024 1:30 PM PBX INSPECTOR 08/25/2024 2:38 PM PBX INSPECTOR us Radha Kirk NP LAB BLOOD ORDERABLES Final Result [facility] Department [place] [address] * (ABNORMAL) CBC with auto differential (08/25/2024 1:30 PM PBX INSPECTOR) [facility] WBC 10.0(H) 3.8 - 9.9 K/cumm Hgb 8.6(L) 11.9 - 15.5 g/dL [facility] Hct 26.5(L) 35.6 - 45.5 % [facility] Plt 168 150 - 400 K/cumm [facility] MPV 10.2 9.1 - 12.3 fL [facility] RBC 2.94(L) 3.90 - 5.20 M/cumm [facility] MCV 90.1 81.3 - 96.4 fL [facility] MCH 29.3 27.1 - 33.3 pg [facility] MCHC 32.5 32.3 - 35.7 g/dL [facility] RDW CV 14.7 11.1 - 14.9 % [facility] RDW SD 48.7(H) 35.7 - 48.1 fL [facility] NRBC abs 0.00 0.00 - 0.01 K/cumm [facility] Blood 08/25/2024 1:30 PM PBX INSPECTOR 08/25/2024 2:38 PM PBX INSPECTOR us Radha Kirk NP LAB BLOOD ORDERABLES Final Result [facility] [employer] [place] [address] * Phosphorus (08/25/2024 1:30 PM PBX INSPECTOR) [facility] Phosphorus, pl 3.5 2.3 - 4.5 mg/dL Blood 08/25/2024 1:30 PM PBX INSPECTOR 08/25/2024 2:38 PM PBX INSPECTOR us Sharan De La Vega MD LAB BLOOD ORDERABLES Fin al Result [facility] [place] [address] * Magnesium (08/25/2024 1:30 PM PBX INSPECTOR) Pathologist [facility] Magnesium 1.6 1.4 - 2.5 mg/dL Blood 08/25/2024 1:30 PM PBX INSPECTOR 08/25/2024 2:38 PM PBX INSPECTOR Sharan De La Vega MD LAB BLOOD ORDERABLES Fin al Result [facility] Department [place] [address] * (ABNORMAL) Basic metabolic panel (08/25/2024 1:30 PM PBX INSPECTOR) [facility] Sodium 138 135 - 145 mmol/L Potassium, pl 4.4 3.3 - 4.9 mmol/L [facility] Chloride 109 97 - 110 mmol/L [facility] CO2 19(L) 22 - 32 mmol/L [facility] Anion gap 10 2 - 15 mmol/L [facility] BUN 39(H) 6 - 25 mg/dL [facility] Creatinine 1.46(H) 0.60 - 1.10 mg/dL [facility] Glucose 214(H) 70 - 199 mg/dL [facility] Comment: Interpretive Data Fasting glucose >/= 126 [...] 2022. Calcium 8.6 8.5 - 10.3 mg/dL [facility] Blood 08/25/2024 1:30 PM PBX INSPECTOR 08/25/2024 2:38 PM PBX INSPECTOR Sharan De La Vega MD LAB BLOOD ORDERABLES Fin al Result Performing Organization Address [facility] de Phone Number [facility] Department [place] [address] * (ABNORMAL) POCT glucose (08/25/2024 11:42 AM PBX INSPECTOR) Glucose, POC 206(H) 70 - 199 mg/dL Blood 08/25/2024 11:4 2 AM PBX INSPECTOR 08/25/2024 11:42 AM PBX INSPECTOR Tashi Parisi MD LAB POCT ORDERABLES - DEV ICE Final Result Performing Organization Address [facility] de Phone Number [facility] Department [place] [address] * (ABNORMAL) POCT glucose (08/25/2024 8:10 AM PBX INSPECTOR) Glucose, POC 237(H) 70 - 199 mg/dL Blood 08/25/2024 8:10 AM PBX INSPECTOR 08/25/2024 8:10 AM PBX INSPECTOR Tashi Parisi MD LAB POCT ORDERABLES - DEV ICE Final Result Performing Organization Address [facility] de Phone Number [facility] Department [place] [address] * (ABNORMAL) Differential, auto (08/24/2024 11:36 PM PBX INSPECTOR) Neutrophil abs 12.8(H) 1.5 - 6.5 K/cumm Imm gran abs 0.1 0.0 - 0.1 K/cumm [facility] Lymphocyte abs 0.9 0.8 - 3.3 K/cumm [facility] Monocyte abs 2.1(H) 0.2 - 0.8 K/cumm [facility] Eosinophil abs 0.0 0.0 - 0.5 K/cumm [facility] Basophil abs 0.1 0.0 - 0.1 K/cumm [facility] Neutrophil pct 80.3 % [facility] Comment: Interpretive Data Percent cell count reference ranges are not reported, since discordance with absolute values may lead to misinterpretation of CBC data. Current Interpretive Data was last revised on 2017. Imm gran pct 0.4 % [facility] Comment: Interpretive Data Percent cell count reference ranges are not reported, since discordance with absolute values may lead to misinterpretation of CBC data. Current Interpretive Data was last revised on 2017. Lymphocyte pct 5.6 % [facility] Comment: Interpretive Data Percent cell count reference ranges are not reported, since discordance with absolute values may lead to misinterpretation of CBC data. Current Interpretive Data was last revised on 2017. Monocyte pct 13.3 % [facility] Comment: Interpretive Data Percent cell count reference ranges are not reported, since discordance with absolute values may lead to misinterpretation of CBC data. Current Interpretive Data was last revised on 2017. Eosinophil pct 0.1 % [facility] Comment: Interpretive Data Percent cell count reference ranges are not reported, since discordance with absolute values may lead to misinterpretation of CBC data. Current Interpretive Data was last revised on 2017. Basophil pct 0.3 % [facility] Comment: Interpretive Data Percent cell count reference ranges are not reported, since discordance with absolute values may lead to misinterpretation of CBC data. Current Interpretive Data was last revised on 2017. Blood 08/24/2024 11:3 6 PM PBX INSPECTOR 08/24/2024 11:46 PM PBX INSPECTOR us Davina Mckeon MD LAB BLOOD ORDERABLES Final Resul t [facility] Department [place] [address] * (ABNORMAL) CBC with auto differential (08/24/2024 11:36 PM PBX INSPECTOR) WBC 16.0(H) 3.8 - 9.9 K/cumm Hgb 10.6(L) 11.9 - 15.5 g/dL [facility] Hct 32.6(L) 35.6 - 45.5 % [facility] Plt 218 150 - 400 K/cumm [facility] MPV 9.3 9.1 - 12.3 fL [facility] RBC 3.67(L) 3.90 - 5.20 M/cumm [facility] MCV 88.8 81.3 - 96.4 fL [facility] MCH 28.9 27.1 - 33.3 pg [facility] MCHC 32.5 32.3 - 35.7 g/dL [facility] RDW CV 14.5 11.1 - 14.9 % [facility] RDW SD 47.5 35.7 - 48.1 fL [facility] NRBC abs 0.00 0.00 - 0.01 K/cumm [facility] Blood 08/24/2024 11:3 6 PM PBX INSPECTOR 08/24/2024 11:46 PM PBX INSPECTOR Davina Mckeon MD LAB BLOOD ORDERABLES Final Resul t Performing Organization Address City/[facility]/ZIP Co de Phone Number [facility] Department [place] [employer] [place] [address] * (ABNORMAL) POCT glucose (08/24/2024 11:30 PM PBX INSPECTOR) Pathologist [facility] Glucose, POC 202(H) 70 - 199 mg/dL Blood 08/24/2024 11:3 0 PM PBX INSPECTOR 08/24/2024 11:30 PM PBX INSPECTOR us Tashi Parisi MD LAB POCT ORDERABLES - DEV ICE Final Result [facility] Department of [employer] [place] [address] * (ABNORMAL) POC Blood Gas and Chemistries, Arterial - (08/24/2024 10:52 PM PBX INSPECTOR) Pathologist [facility] pH, Art POC 7.22(L) 7.35 - 7.45 pCO2, Art POC 41 35 - 45 mmHg [facility] pO2, Art POC 160(H) 83 - 108 mmHg [facility] Na, POC 145 135 - 145 mmol/L [facility] K POC 3.3 3.3 - 4.9 mmol/L [facility] Comment: Interpretive Data Not all point of care methods assess for hemolysis. Confirm with instrument and retest K+ if not consistent with clinical signs and symptoms. Current Interpretive Data was last revised on 2023. Cl, POC 119(H) 97 - 110 mmol/L [facility] Ionized Ca, POC 5.79(H) 4.50 - 5.10 mg/dL [facility] Glucose, POC 234(H) 70 - 199 mg/dL [facility] Lactate, POC 3.0(H) 0.7 - 2.2 mmol/L [facility] SO2 (nasar) arterial 99(H) 90 - 95 % [facility] Base excess, POC -10.3 mmol/L [facility] HCO3, Art POC 17(L) 20 - 30 mmol/L [facility] Hct, POC 30.0(L) 36.3 - 45.3 % [facility] Total Hb, POC 10.1(L) 11.9 - 15.5 g/dL [facility] Blood 08/24/2024 10:5 2 PM PBX INSPECTOR 08/24/2024 10:52 PM PBX INSPECTOR us Tashi Parisi MD LAB POCT ORDERABLES - DEV ICE Final Result [facility] Department [place] [address] * (ABNORMAL) POC Blood Gas and Chemistries, Arterial - (08/24/2024 10:07 PM PBX INSPECTOR) pH, Art POC 7.26(L) 7.35 - 7.45 pCO2, Art POC 38 35 - 45 mmHg [facility] pO2, Art POC 164(H) 83 - 108 mmHg [facility] Na, POC 144 135 - 145 mmol/L [facility] K POC 3.9 3.3 - 4.9 mmol/L [facility] Comment: Interpretive Data Not all point of care methods assess for hemolysis. Confirm with instrument and retest K+ if not consistent with clinical signs and symptoms. Current Interpretive Data was last revised on 2023. Cl, POC 118(H) 97 - 110 mmol/L [facility] Ionized Ca, POC 5.86(H) 4.50 - 5.10 mg/dL [facility] Glucose, POC 265(H) 70 - 199 mg/dL [facility] Lactate, POC 2.8(H) 0.7 - 2.2 mmol/L [facility] SO2 (nasra) arterial 99(H) 90 - 95 % [facility] Base excess, POC -9.3 mmol/L [facility] HCO3, Art POC 17(L) 20 - 30 mmol/L [facility] Hct, POC 31.0(L) 36.3 - 45.3 % [facility] Total Hb, POC 10.4(L) 11.9 - 15.5 g/dL [facility] Blood 08/24/2024 10:0 7 PM PBX INSPECTOR 08/24/2024 10:07 PM PBX INSPECTOR Tashi Parisi MD LAB POCT ORDERABLES - DEV ICE Final Result Performing Organization Address [facility]/ZIP Co de Phone Number [facility] Department of [employer] [place] [address] * Transfuse RBC (08/24/2024 9:45 PM PBX INSPECTOR) Blood us Davina Mckeon MD BLOOD TRANSFUSION ORDERABLES Fin al Result [facility] Department [place] [address] * Arterial Line (08/24/2024 9:43 PM PBX INSPECTOR) Narrative Ashok Santa MD - 08/24/2024 9:43 PM PBX INSPECTOR Ashok Santa MD 08/24/2024 9:44 PM Arterial Line Patient location: OR End time: 08/24/2024 8:55 PM Indication: continuous blood pressure monitoring, blood sampling needed and unable to use non-invasive cuff Ultrasound assisted: yes Staff: Supervising provider: Davina Mckeon MD Placed by: Resident: Ashok Santa MD Procedure prep: Prep solution: chlorhexadine/alcohol Prep: provider hat/mask and sterile gloves Arterial line: Catheter size: 3 [place] Catheter length: 8 cm Catheter type: wire-guided catheter Seldinger technique: yes Laterality: left Site: radial artery Line secured: Tegaderm and tape Results: good waveform and good blood return Number of attempts: 1 Assessment: Events: patient tolerated procedure well with no complications us Davina Mckeon MD ANESTHESIA ORDERABLES Edited Res ult - Final * Peripheral IV Catheter (08/24/2024 9:43 PM PBX INSPECTOR) Narrative Ashok Santa MD - 08/24/2024 9:43 PM PBX INSPECTOR Ashok Santa MD 08/24/2024 9:43 PM Peripheral [...] lt * Transfuse plasma (08/24/2024 9:39 PM PBX INSPECTOR) Blood us Davina Mckeon MD BLOOD TRANSFUSION ORDERABLES Fin al Result [facility] Department [place] [address] * Transfuse plasma Standard plasma (08/24/2024 9:26 PM PBX INSPECTOR) Blood us Davina Mckeon MD BLOOD TRANSFUSION ORDERABLES Fin al Result Performing Organization Address [facility] [place] [address] * Prepare plasma: 1 Units (08/24/2024 9:19 PM PBX INSPECTOR) Product code [id number] Unit Number [id number] [facility] Product Blood Type BPOS [facility] Dispense Status PRESUMED TRANSFUSED [facility] Blood (Blood, Venous) 08/24/2024 9:19 PM PBX INSPECTOR 08/24/2024 9:21 PM PBX INSPECTOR Narrative [facility] - 08/25/2024 4:00 PM PBX INSPECTOR Date required:-20240824 FFP # of Units:-1-Units Reasons:-Immediate need for surgical intervention Davina Mckeon MD BLOOD BANK PRODUCT ORDERABLES Fi nal Result Performing Organization Address [facility] Co de Phone Number [facility] [employer] [place] [address] * Prepare RBC: 2 Units (08/24/2024 9:19 PM PBX INSPECTOR) Product code [id number] Unit Number [id number] [facility] Product Blood Type OPOS [facility] Dispense Status PRESUMED TRANSFUSED [facility] Blood 08/24/2024 9:19 PM PBX INSPECTOR 08/24/2024 9:21 PM PBX INSPECTOR Narrative [facility] - 08/25/2024 4:00 PM PBX INSPECTOR Are special requirements needed? (All products are leukoreduced and CMV- safe)- >No Date required:-20240824 LRRBC # of [id number] Reasons:-Intra-op transfusion} Davina Mckeon MD BLOOD BANK PRODUCT ORDERABLES Fi nal Result Performing Organization Address [facility] Co de Phone Number [facility] [employer] [place], [place] [id number] * (ABNORMAL) POC Blood Gas and Chemistries, Arterial - (08/24/2024 9:16 PM PBX INSPECTOR) pH, Art POC 7.15(C) 7.35 - 7.45 pCO2, Art POC 42 35 - 45 mmHg [facility] pO2, Art POC 140(H) 83 - 108 mmHg [facility] Na, POC 142 135 - 145 mmol/L [facility] K POC 3.8 3.3 - 4.9 mmol/L [facility] Comment: Interpretive Data Not all point of care methods assess for hemolysis. Confirm with instrument and retest K+ if not consistent with clinical signs and symptoms. Current Interpretive Data was last revised on 2023. Cl, POC 118(H) 97 - 110 mmol/L [facility] Ionized Ca, POC 4.95 4.50 - 5.10 mg/dL [facility] Glucose, POC 251(H) 70 - 199 mg/dL [facility] Lactate, POC 1.8 0.7 - 2.2 mmol/L [facility] SO2 (nasra) arterial 99(H) 90 - 95 % [facility] Base excess, POC -13.4 mmol/L [facility] HCO3, Art POC 14(L) 20 - 30 mmol/L [facility] Hct, POC 27.0(L) 36.3 - 45.3 % [facility] Total Hb, POC 9.0(L) 11.9 - 15.5 g/dL [facility] Blood 08/24/2024 9:16 PM PBX INSPECTOR 08/24/2024 9:16 PM PBX INSPECTOR us Tashi Parisi MD LAB POCT ORDERABLES - DEV ICE Final Result [facility] [place] [address] * (ABNORMAL) POCT hemoglobin, hematocrit and platelet count (08/24/2024 9:15 PM PBX INSPECTOR) Hgb, POC 8.9(L) 11.9 - 15.5 g/dL Hematocrit POC 27.4(L) 35.6 - 45.5 % [facility] Platelet POC 263 150 - 400 K/cumm [facility] Blood 08/24/2024 9:15 PM PBX INSPECTOR 08/24/2024 9:15 PM PBX INSPECTOR Tashi Parisi MD LAB POCT ORDERABLES - DEV ICE Final Result Performing Organization Address [facility] Co de Phone Number [facility] [employer] [place] [address] * (ABNORMAL) POCT Partial thromboplastin time (PTT) (08/24/2024 9:15 PM PBX INSPECTOR) APTT, POC 26.6(L) 32.5 - 46.1 sec Blood 08/24/2024 9:15 PM PBX INSPECTOR 08/24/2024 9:15 PM PBX INSPECTOR Tashi Parisi MD LAB POCT ORDERABLES - DEV ICE Final Result Performing Organization Address [facility] de Phone Number [facility] [employer] [place] [address] * (ABNORMAL) POCT prothrombin time (08/24/2024 9:14 PM PBX INSPECTOR) PT, POC 21.1(H) 11.7 - 16.6 sec INR, POC 1.6(H) 0.9 - 1.2 [facility] Blood 08/24/2024 9:14 PM PBX INSPECTOR 08/24/2024 9:14 PM PBX INSPECTOR Tashi Parisi MD LAB POCT ORDERABLES - DEV ICE Final Result Performing Organization Address [facility] de Phone Number [facility] [employer] [place] [address] * Prepare plasma: 1 Units Standard plasma (08/24/2024 9:06 PM PBX INSPECTOR) Product code [id number] Unit Number [id number] [facility] Product Blood Type OPOS [facility]ER [facility] Dispense Status PRESUMED TRANSFUSED [facility] Blood (Blood, Venous) 08/24/2024 9:06 PM PBX INSPECTOR 08/24/2024 9:05 PM PBX INSPECTOR Narrative [facility] - 08/25/2024 4:00 PM PBX INSPECTOR Is this plasma order intended for a COVID-19 patient as convalescent plasma?->Standard plasma Special Requirements Needed?->No Date required:-[id number] FFP # of Units:-1-Units Reasons:-Active major bleeding with coagulopathy} us Davina Mckeon MD BLOOD BANK PRODUCT ORDERABLES Fi nal Result Performing Organization Address [facility] Co de Phone Number [facility] [employer] [place], [place] [id number] * Transfuse RBC (08/24/2024 9:04 PM PBX INSPECTOR) Blood us Davina Mckeon MD BLOOD TRANSFUSION ORDERABLES Fin al Result Performing Organization Address [facility]/ZIP Co de Phone Number [facility] [employer] [place] [address] * Prepare RBC: 3 Units (08/24/2024 8:31 PM PBX INSPECTOR) Product code [id number] Unit Number [id number] [facility] Product Blood Type OPOS CERNER BJ Dispense Status RETURNED [facility]ER [facility] Product code [id number] [facility] Unit Number [id number] [facility] Product Blood Type OPOS C[facility]ER BJ Dispense Status RETURNED [facility] Product code [id number] [facility] Unit Number [id number] [facility] Product Blood Type OPOS [facility]J Dispense Status PRESUMED TRANSFUSED [facility] Blood 08/24/2024 8:31 PM PBX INSPECTOR 08/24/2024 8:35 PM PBX INSPECTOR Narrative [facility] - 08/26/2024 10:17 AM PBX INSPECTOR Are special requirements needed? (All products are leukoreduced and CMV- safe)- >No Date required:-[id number] LRRBC # of Eqapo-[id number] Reasons:-Intra-op transfusion} Davina Mckeon MD BLOOD BANK PRODUCT ORDERABLES Fi nal Result Performing Organization Address [facility] de Phone Number [facility] [place] [address] * FL Fluoroscopy < 1 Hour (08/24/2024 8:00 PM PBX INSPECTOR) Narrative [facility] - 08/28/2024 5:44 PM PBX INSPECTOR The images from this study are not interpreted by Radiology. Please refer to the physician's procedure / OR operative note. Sharan De La Vega MD IMG FLUOROSCOPY PROCEDUR ES Final Result Performing Organization Address [facility] de Phone Number [facility] * POCT glucose (08/24/2024 6:36 PM PBX INSPECTOR) Glucose, POC 144 70 - 199 mg/dL Blood 08/24/2024 6:36 PM PBX INSPECTOR 08/24/2024 6:36 PM PBX INSPECTOR Tashi Parisi MD LAB POCT ORDERABLES - DEV ICE Final Result Performing Organization Address [facility] de Phone Number [facility] [place] [address] * DC AN ELECTIVE ENDOTRACHEAL AIRWAY, DC AN PROCEDURE PLACEHOLDER (08/24/2024 6:22 PM PBX INSPECTOR) Narrative Maricruz Rojo CRNA - 08/24/2024 6:22 PM PBX INSPECTOR Maricruz Rojo CRNA 08/24/2024 6:23 PM Airway Patient location: OR Urgency: elective Indications for airway management: anesthesia Difficult airway: no Staff: Supervising provider: Lenin Moreland MD Placed by: SPLICING MACHINE OPERATOR: Maricruz Rojo CRNA Emergent airway documentation: Risks [...] DC AN PROCEDURE PLACEHOLDER (08/24/2024 2:53 PM PBX INSPECTOR) Narrative Serjio Macdonald MD - 08/24/2024 2:53 PM PBX INSPECTOR Harley Espinoza MD 08/24/2024 4:10 PM Peripheral [...] Result * Check Sample (08/24/2024 2:14 PM PBX INSPECTOR) ABO Rh O Positive [facility] HCLL OTHER 08/24/2024 2:14 PM PBX INSPECTOR 08/24/2024 2:24 PM PBX INSPECTOR Tashi Parisi MD LAB BLOOD ORDERABLES Anna l Result Performing Organization Address [facility] Co de Phone Number [facility] [place] [address] [facility] * POCT glucose (08/24/2024 2:10 PM PBX INSPECTOR) Glucose, POC 155 70 - 199 mg/dL Blood 08/24/2024 2:10 PM PBX INSPECTOR 08/24/2024 2:10 PM PBX INSPECTOR Result [facility] Tashi Parisi MD LAB POCT ORDERABLES - DEV ICE Final Result Performing Organization Address [facility] Co de Phone Number [facility] Department [place] [address] * POCT glucose (08/24/2024 11:51 AM PBX INSPECTOR) Glucose, POC 176 70 - 199 mg/dL Blood 08/24/2024 11:5 1 AM PBX INSPECTOR 08/24/2024 11:51 AM PBX INSPECTOR Tashi Parisi MD LAB POCT ORDERABLES - DEV ICE Final Result Performing Organization Address [facility] Co de Phone Number [facility] [place] [address] * (ABNORMAL) eGFR (08/24/2024 9:39 AM PBX INSPECTOR) Pathologist [facility] eGFR 39(L) >=60 mL/min/1. 73 m2 Comment: [...] last reviewed 2021. Blood 08/24/2024 9:39 AM PBX INSPECTOR 08/24/2024 9:54 AM PBX INSPECTOR us Radha Kirk PASTA MAKER LAB BLOOD ORDERABLES Final Result [facility] Department [place] [address] * (ABNORMAL) Differential, auto (08/24/2024 9:39 AM PBX INSPECTOR) [facility] Neutrophil abs 4.8 1.5 - 6.5 K/cumm Imm gran abs 0.0 0.0 - 0.1 K/cumm [facility] Lymphocyte abs 1.4 0.8 - 3.3 K/cumm [facility] Monocyte abs 0.9(H) 0.2 - 0.8 K/cumm [facility] Eosinophil abs 0.2 0.0 - 0.5 K/cumm [facility] Basophil abs 0.1 0.0 - 0.1 K/cumm [facility] Neutrophil pct 64.5 % [facility] Comment: Interpretive Data Percent cell count reference ranges are not reported, since discordance with absolute values may lead to misinterpretation of CBC data. Current Interpretive Data was last revised on 2017. Imm gran pct 0.4 % [facility] Comment: Interpretive Data Percent cell count reference ranges are not reported, since discordance with absolute values may lead to misinterpretation of CBC data. Current Interpretive Data was last revised on 2017. Lymphocyte pct 18.6 % [facility] Comment: Interpretive Data Percent cell count reference ranges are not reported, since discordance with absolute values may lead to misinterpretation of CBC data. Current Interpretive Data was last revised on 2017. Monocyte pct 12.5 % [facility] Comment: Interpretive Data Percent cell count reference ranges are not reported, since discordance with absolute values may lead to misinterpretation of CBC data. Current Interpretive Data was last revised on 2017. Eosinophil pct 3.1 % [facility] Comment: Interpretive Data Percent cell count reference ranges are not reported, since discordance with absolute values may lead to misinterpretation of CBC data. Current Interpretive Data was last revised on 2017. Basophil pct 0.9 % [facility] Comment: Interpretive Data Percent cell count reference ranges are not reported, since discordance with absolute values may lead to misinterpretation of CBC data. Current Interpretive Data was last revised on 2017. Blood 08/24/2024 9:39 AM PBX INSPECTOR 08/24/2024 9:54 AM PBX INSPECTOR us Radha Kirk PASTA MAKER LAB BLOOD ORDERABLES Final Result [facility] Department [place] [address] * (ABNORMAL) CBC with auto differential (08/24/2024 9:39 AM PBX INSPECTOR) WBC 7.4 3.8 - 9.9 K/cumm Hgb 12.2 11.9 - 15.5 g/dL [facility] Hct 39.5 35.6 - 45.5 % [facility] Plt 235 150 - 400 K/cumm [facility] MPV 9.6 9.1 - 12.3 fL [facility] RBC 4.35 3.90 - 5.20 M/cumm [facility] MCV 90.8 81.3 - 96.4 fL [facility] MCH 28.0 27.1 - 33.3 pg [facility] MCHC 30.9(L) 32.3 - 35.7 g/dL [facility] RDW CV 14.6 11.1 - 14.9 % [facility] RDW SD 49.4(H) 35.7 - 48.1 fL [facility] NRBC abs 0.00 0.00 - 0.01 K/cumm [facility] Blood 08/24/2024 9:39 AM PBX INSPECTOR 08/24/2024 9:54 AM PBX INSPECTOR Radha Kirk PASTA MAKER LAB BLOOD ORDERABLES Final Result Performing Organization Address [facility]/ZIP Co de Phone Number [facility] Department [place] [address] * Phosphorus (08/24/2024 9:39 AM PBX INSPECTOR) Phosphorus, pl 3.6 2.3 - 4.5 mg/dL Blood 08/24/2024 9:39 AM PBX INSPECTOR 08/24/2024 9:54 AM PBX INSPECTOR Radha Kirk PASTA MAKER LAB BLOOD ORDERABLES Final Result [facility] [place] [address] * Magnesium (08/24/2024 9:39 AM PBX INSPECTOR) Magnesium 1.9 1.4 - 2.5 mg/dL Blood 08/24/2024 9:39 AM PBX INSPECTOR 08/24/2024 9:54 AM PBX INSPECTOR Radha Kirk PASTA MAKER LAB BLOOD ORDERABLES Final Result [facility] Department [place] [address] * (ABNORMAL) Comprehensive metabolic panel (08/24/2024 9:39 AM PBX INSPECTOR) Sodium 140 135 - 145 mmol/L Potassium, pl 3.5 3.3 - 4.9 mmol/L [facility] Chloride 108 97 - 110 mmol/L [facility] CO2 24 22 - 32 mmol/L [facility] Anion gap 8 2 - 15 mmol/L [facility] BUN 35(H) 6 - 25 mg/dL [facility] Creatinine 1.33(H) 0.60 - 1.10 mg/dL [facility] Glucose 193 70 - 199 mg/dL [facility] Comment: Interpretive Data Fasting glucose [...] Calcium 9.8 8.5 - 10.3 mg/dL [facility] Bilirubin, total 0.5 0.1 - 1.2 mg/dL [facility] Protein, pl 7.0 6.5 - 8.5 g/dL [facility] Albumin 3.7 3.5 - 5.0 g/dL [facility] Alk phos 96 40 - 130 Units/L [facility] ALT 12 7 - 45 Units/L [facility] AST 15 10 - 45 Units/L [facility] Blood 08/24/2024 9:39 AM PBX INSPECTOR 08/24/2024 9:54 AM PBX INSPECTOR us Radha Kirk PASTA MAKER LAB BLOOD ORDERABLES Final Result [facility] [employer] [place] [address] * POCT glucose (08/24/2024 8:16 AM PBX INSPECTOR) Glucose, POC 174 70 - 199 mg/dL Blood 08/24/2024 8:16 AM PBX INSPECTOR 08/24/2024 8:16 AM PBX INSPECTOR us Tashi Parisi MD LAB POCT ORDERABLES - DEV ICE Final Result Performing Organization Address [facility] [place] [address] * Potassium, whole blood (08/24/2024 3:38 AM PBX INSPECTOR) Potassium, bld 3.5 3.3 - 4.9 mmol/L Blood 08/24/2024 3:38 AM PBX INSPECTOR 08/24/2024 3:44 AM PBX INSPECTOR us Miranda Hunter MD LAB BLOOD ORDERABLES Final Result Performing Organization Address [facility] Co de Phone Number [facility] [employer] [place] [address] * POCT glucose (08/23/2024 10:27 PM PBX INSPECTOR) Glucose, POC 156 70 - 199 mg/dL Blood 08/23/2024 10:2 7 PM PBX INSPECTOR 08/23/2024 10:27 PM PBX INSPECTOR Tashi Parisi MD LAB POCT ORDERABLES - DEV ICE Final Result Performing Organization Address [facility] Co de Phone Number [facility] [place] [address] * (ABNORMAL) POCT glucose (08/23/2024 9:05 PM PBX INSPECTOR) Glucose, POC 205(H) 70 - 199 mg/dL Blood 08/23/2024 9:05 PM PBX INSPECTOR 08/23/2024 9:05 PM PBX INSPECTOR us Tashi Parisi MD LAB POCT ORDERABLES - DEV ICE Final Result [facility] [place] [address] * CT Pelvis WO Contrast (08/23/2024 7:10 PM PBX INSPECTOR) Anatomical Region Laterality Modality Body N/A Computed Tomogra phy 08/23/2024 7:18 PM PBX INSPECTOR Impressions 08/23/2024 7:28 PM PBX INSPECTOR Changes of intramedullary nailing of the right [...] Toi Milan M.D. Narrative 08/23/2024 7:28 PM PBX INSPECTOR EXAMINATION: CT PELVIS WO CONTRAST HISTORY: Suspected [...] Cervical Spine WO Contrast (08/23/2024 5:30 PM PBX INSPECTOR) Anatomical Region Laterality Modality Spine N/A Computed Tomogra phy 08/23/2024 5:42 PM PBX INSPECTOR Impressions 08/23/2024 5:52 PM PBX INSPECTOR No acute fracture within the cervical spine. Dictated by: Maddi Pat MD The radiology attending physician has personally reviewed this study, and had reviewed and/or edited this written report and agrees with it. Electronically signed by: Sandy Garcia M.D. Narrative 08/23/2024 5:52 PM PBX INSPECTOR EXAMINATION: CT of the cervical spine without [...] sult * (ABNORMAL) eGFR (08/23/2024 4:49 PM PBX INSPECTOR) eGFR 49(L) >=60 mL/min/1. 73 m2 Comment: [...] last reviewed 2021. Blood 08/23/2024 4:49 PM PBX INSPECTOR 08/23/2024 4:55 PM PBX INSPECTOR Minor Barnes MD LAB BLOOD ORDERABLES Final Result [facility] [place] [address] * Lipid panel (08/23/2024 4:49 PM PBX INSPECTOR) Cholesterol 146 30 - 199 mg/dL Comment: [...] revised on 2018. HDL 45 >=40 mg/dL [facility] Comment: Interpretive Data Ages < or = [...] on 2018. LDL, calculated 84 <=129 mg/dL [facility] Comment: Interpretive Data Ages < or = [...] revised on 2024. Non-HDL Cholesterol 101 mg/dL [facility] Comment: Interpretive Data Ages < or = [...] last revised on 2018. Chol/HDL ratio 3 [facility] Blood 08/23/2024 4:49 PM PBX INSPECTOR 08/23/2024 4:55 PM PBX INSPECTOR Narrative [facility] - 08/24/2024 8:25 AM PBX INSPECTOR Reflex us Tashi Parisi MD LAB BLOOD ORDERABLES Anna mari Result [facility] [place] [address] * (ABNORMAL) Comprehensive metabolic panel (08/23/2024 4:49 PM PBX INSPECTOR) Sodium 144 135 - 145 mmol/L Potassium, pl 3.1(L) 3.3 - 4.9 mmol/L [facility] Chloride 111(H) 97 - 110 mmol/L [facility] CO2 22 22 - 32 mmol/L [facility] Anion gap 11 2 - 15 mmol/L [facility] BUN 29(H) 6 - 25 mg/dL [facility] Creatinine 1.11(H) 0.60 - 1.10 mg/dL [facility] Glucose 218(H) 70 - 199 mg/dL [facility] Comment: Interpretive Data Fasting glucose >/= 126 [...] 2022. Calcium 9.4 8.5 - 10.3 mg/dL [facility] Bilirubin, total 0.3 0.1 - 1.2 mg/dL [facility] Protein, pl 6.9 6.5 - 8.5 g/dL [facility] Albumin 3.6 3.5 - 5.0 g/dL [facility] Alk phos 93 40 - 130 Units/L [facility] ALT 10 7 - 45 Units/L [facility] AST 20 10 - 45 Units/L [facility] Blood 08/23/2024 4:49 PM PBX INSPECTOR 08/23/2024 4:55 PM PBX INSPECTOR Minor Barnes MD LAB BLOOD ORDERABLES Final Result [facility] Department [place] [address] * DC INJECTION AA&/STRD OTHER PERIPHERAL NERVE/BRANCH (08/23/2024 4:15 PM PBX INSPECTOR) Narrative Álvaro Flores MD - 08/23/2024 4:15 PM PBX INSPECTOR Minor Barnes MD 08/23/2024 4:17 PM Nerve Block Date/Time: 08/23/2024 4:15 PM Performed by: Minor Barnes MD Authorized by: Felice Goyal MD [place] Protocol: RN Notified of Procedure: yes Informed [...] 2 or 3 Views (08/23/2024 3:51 PM PBX INSPECTOR) Anatomical Region Laterality Modality Lower Extremities, Hip, Pelvis Right C omputed Radiography 08/23/2024 4:08 PM PBX INSPECTOR Impressions 08/23/2024 4:11 PM PBX INSPECTOR Extra-articular obliquely oriented mildly displaced fracture of the proximal right femoral shaft extending into the lesser trochanter. Dictated by: Karen Fair MD The radiology attending physician has personally reviewed this study, and had reviewed and/or edited this written report and agrees with it. Electronically signed by: Toi Milan M.D. Narrative 08/23/2024 4:11 PM PBX INSPECTOR EXAMINATION: XR PELVIS 1 OR 2 VIEWS [...] 2 or More Views (08/23/2024 3:35 PM PBX INSPECTOR) Anatomical Region Laterality Modality Lower Extremities, Thigh, Femur Right Computed Radiography 08/23/2024 4:08 PM PBX INSPECTOR Impressions 08/23/2024 4:11 PM PBX INSPECTOR Extra-articular obliquely oriented mildly displaced fracture of the proximal right femoral shaft extending into the lesser trochanter. Dictated by: Karen Fair MD The radiology attending physician has personally reviewed this study, and had reviewed and/or edited this written report and agrees with it. Electronically signed by: Toi Milan M.D. Narrative 08/23/2024 4:11 PM PBX INSPECTOR EXAMINATION: XR PELVIS 1 OR 2 VIEWS [...] 1 or 2 Views (08/23/2024 3:34 PM PBX INSPECTOR) Anatomical Region Laterality Modality Body, Pelvis N/A Computed Radiogr aphy 08/23/2024 4:08 PM PBX INSPECTOR Impressions 08/23/2024 4:11 PM PBX INSPECTOR Extra-articular obliquely oriented mildly displaced fracture of the proximal right femoral shaft extending into the lesser trochanter. Dictated by: Karen Fair MD The radiology attending physician has personally reviewed this study, and had reviewed and/or edited this written report and agrees with it. Electronically signed by: Toi Milan M.D. Narrative 08/23/2024 4:11 PM PBX INSPECTOR EXAMINATION: XR PELVIS 1 OR 2 VIEWS [...] Chest 1 Vw Portable (08/23/2024 3:34 PM PBX INSPECTOR) Anatomical Region Laterality Modality Body, Chest N/A Computed Radiogr aphy 08/23/2024 4:01 PM PBX INSPECTOR Impressions 08/23/2024 4:11 PM PBX INSPECTOR The heart and mediastinal contours are normal. [...] Toi Milan M.D. Narrative 08/23/2024 4:11 PM PBX INSPECTOR EXAMINATION: 1 view chest radiograph Procedure Note [...] * (ABNORMAL) Differential, auto (08/23/2024 3:09 PM PBX INSPECTOR) Neutrophil abs 11.1(H) 1.5 - 6.5 K/cumm [...] revised on 2017. Lymphocyte pct 9.9 % [facility] Comment: Interpretive Data Percent cell count reference ranges are not reported, since discordance with absolute values may lead to misinterpretation of CBC data. Current Interpretive Data was last revised on 2017. Monocyte pct 5.1 % [facility] Comment: Interpretive Data Percent cell count reference ranges are not reported, since discordance with absolute values may lead to misinterpretation of CBC data. Current Interpretive Data was last revised on 2017. Eosinophil pct 0.2 % [facility] Comment: Interpretive Data Percent cell count reference ranges are not reported, since discordance with absolute values may lead to misinterpretation of CBC data. Current Interpretive Data was last revised on 2017. Basophil pct 0.7 % [facility] Comment: Interpretive Data Percent cell count reference ranges are not reported, since discordance with absolute values may lead to misinterpretation of CBC data. Current Interpretive Data was last revised on 2017. Blood 08/23/2024 3:09 PM PBX INSPECTOR 08/23/2024 3:24 PM PBX INSPECTOR Minor Barnes MD LAB BLOOD ORDERABLES Final Result [facility] [place] [address] * (ABNORMAL) CBC with auto differential (08/23/2024 3:09 PM PBX INSPECTOR) WBC 13.2(H) 3.8 - 9.9 K/cumm Hgb 12.9 11.9 - 15.5 g/dL [facility] Hct 40.3 35.6 - 45.5 % [facility] Plt 309 150 - 400 K/cumm [facility] MPV 9.8 9.1 - 12.3 fL [facility] RBC 4.62 3.90 - 5.20 M/cumm [facility] MCV 87.2 81.3 - 96.4 fL [facility] MCH 27.9 27.1 - 33.3 pg [facility] MCHC 32.0(L) 32.3 - 35.7 g/dL [facility] RDW CV 14.6 11.1 - 14.9 % [facility] RDW SD 46.9 35.7 - 48.1 fL [facility] NRBC abs 0.00 0.00 - 0.01 K/cumm [facility] Blood 08/23/2024 3:09 PM PBX INSPECTOR 08/23/2024 3:24 PM PBX INSPECTOR Minor Barnes MD LAB BLOOD ORDERABLES Final Result Performing Organization Address [facility] de Phone Number [facility] [employer] [place] [address] * aPTT (08/23/2024 3:09 PM PBX INSPECTOR) aPTT 29 28 - 38 sec Comment: Interpretive Data Heparin therapeutic range: 66.0 - 100.0 seconds. Range based on correlation with therapeutic heparin activity range of 0.3 - 0.7 Units/mL. Current interpretive data was last revised on 2023. Blood 08/23/2024 3:09 PM PBX INSPECTOR 08/23/2024 3:28 PM PBX INSPECTOR Minor Barnes MD LAB BLOOD ORDERABLES Final Result Performing Organization Address [facility] Co de Phone Number [facility] [employer] [place] [address] * (ABNORMAL) Protime-INR (08/23/2024 3:09 PM PBX INSPECTOR) PT 13.3(H) 9.7 - 13.0 sec INR 1.23(H) 0.90 - 1.20 [facility] Comment: Interpretive data Oral anticoagulant therapeutic ranges: Venous thromboembolism prophylaxis or treatment: 2.0-3.0 CARDIOLOGY Standard range: 2.0-3.0 High-intensity range: 2.5-3.5 Refer to indication-specific guidelines for appropriate target ranges for prosthetic heart valve replacement. Current interpretive data was last revised on 2019. Blood 08/23/2024 3:09 PM PBX INSPECTOR 08/23/2024 3:28 PM PBX INSPECTOR Minor Barnes MD LAB BLOOD ORDERABLES Final Result Performing Organization Address [facility] Co de Phone Number [facility] [place] [address] * Type and screen (08/23/2024 3:09 PM PBX INSPECTOR) ABO Rh O Positive Markos, indirect Negative [facility] Blood 08/23/2024 3:09 PM PBX INSPECTOR 08/23/2024 3:20 PM PBX INSPECTOR Narrative [facility] - 08/23/2024 4:07 PM PBX INSPECTOR Has the patient had Daratumumab or Isatuximab in the past 6 months?->Unknown Result [facility] Minor Barnes MD LAB BLOOD BANK TEST ORDERA BLES Final Result Performing Organization Address [facility] de Phone Number [facility] One [facility] [place] [address] * Neuro CT Outside Reference (08/23/2024 2:36 PM PBX INSPECTOR) Impressions RAD_PACS_[facility] - 08/23/2024 2:36 PM PBX INSPECTOR These images are for Reference purposes only and have not been reviewed by [facility] Radiology. There will be no report generated by a [facility] Radiologist. Narrative RAD_PACS_[facility] - 08/23/2024 2:36 PM PBX INSPECTOR EXAMINATION: Images For Reference Purposes Only Felice Goyal MD IMG CT PROCEDURES Anna l Result Performing Organization Address [facility] Co de Phone Number [facility] * XR Outside Reference (08/23/2024 2:33 PM PBX INSPECTOR) Impressions RAD_PACS_[facility] - 08/23/2024 2:33 PM PBX INSPECTOR These images are for Reference purposes only and have not been reviewed by [facility] Radiology. There will be no report generated by a [facility] Radiologist. Narrative RAD_PACS_[facility] - 08/23/2024 2:33 PM PBX INSPECTOR EXAMINATION: Images For Reference Purposes Only Felice Goyal MD IMG XR PROCEDURES Anna l Result Performing Organization Address [facility] de Phone Number RAD_PACS_[facility] * XR Outside Reference (08/23/2024 2:30 PM PBX INSPECTOR) Impressions RAD_PACS_[facility] - 08/23/2024 2:30 PM PBX INSPECTOR These images are for Reference purposes only and have not been reviewed by [facility] Radiology. There will be no report generated by a [facility] Radiologist. Narrative RAD_PACS_[facility] - 08/23/2024 2:30 PM PBX INSPECTOR EXAMINATION: Images For Reference Purposes Only Felice Goyal MD IMG XR PROCEDURES Anna l Result Performing Organization Address [facility] Phone Number RAD_PACS_[facility] * POCT ketone, blood (08/23/2024 2:05 PM PBX INSPECTOR) Ketones, Blood, POC 0.2 0.0 - 0.5 mmol/L Blood 08/23/2024 2:05 PM PBX INSPECTOR 08/23/2024 2:05 PM PBX INSPECTOR Martin Pinto MD LAB POCT ORDERABLES - DE VICE Final Result Performing Organization Address [facility] Phone Number ROCHELLE LEVY One [facility] Department [place] [address] * (ABNORMAL) POCT glucose (08/23/2024 2:04 PM PBX INSPECTOR) Glucose, POC 217(H) 70 - 199 mg/dL Comment:Glu2: RN/ Notified Glucose comment 1 Glu2: RN/MD Notified ROCHELLE WILLINGHAM Blood 08/23/2024 2:04 PM PBX INSPECTOR 08/23/2024 2:04 PM PBX INSPECTOR us Martin Pinto MD LAB POCT ORDERABLES - DE VICE Final Result [facility] One [facility] Department [place] [address] * Dexa Axial Skeleton Bone Density 1 or 2 Site (06/02/2021 3:15 PM CDT) Anatomical Region Laterality Modality Body N/A Mammography 06/05/2021 7:05 AM CDT Narrative 06/05/2021 7:06 AM CDT EXAM DESCRIPTION: DEXA AXIAL SKELETON BONE DENSITY 1 OR MORE SITES REASON FOR STUDY: 80 y/o year old F with given history of screening. 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 MF: JOSE Report ID: [id number] Reading Location: [id number] Procedure Note Toi Jackson MD - 06/05/2021 EXAM DESCRIPTION: DEXA AXIAL SKELETON BONE DENSITY 1 OR MORE SITES REASON FOR STUDY: 80 y/o year old F with given history ofscreening. 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 MF: JOSE Report ID: [id number] Reading Location: [place] [address] us [facility] IMG DXA PROCEDURES Final Re sult * (ABNORMAL) Hemoglobin A1c (05/22/2021 9:55 AM CDT) Hgb A1C 7.1(H) 4.0 - 5.6 % ROCHELLE DELAROSA Estimated Average Glucose 157 mg/dL ROCHLELE DELAROSA Comment: The ADA recommends reporting an estimated Average Glucose (eAG) with all Hemoglobin A1c results using the equation derived from a study of 507 normal and diabetic adults. Minority populations were underrepresented and children were not included. (Diabetes Care 31:4515-3073, 2008). The eAG is not equivalent to a fasting glucose. Blood 05/22/2021 9:55 AM CDT 05/22/2021 5:19 PM CDT us [facility] LAB BLOOD ORDERABLES Final Result ROCHELLE [address] [facility] Department [place] [address] * (ABNORMAL) Diabetic Eye Exam (12/10/2020) us Historical Provider MD HEALTH MAINTENANCE Final Result from Last 3 Months or Most Recently Relevant to Health Maintenance Insurance FOR LIFE MEDICARE MEDICARE FOR LIFE MEDICARE FOR LIFE Advance Directives For more information, please contact: [phone] * Full Code (Latest Code Status on File) Date Activated Date Inactivated Comments 08/23/2024 10:14 PM 08/28/2024 12:08 AM * Full Code Date Activated Date Inactivated Comments 03/07/2020 10:09 AM 03/07/2020 4:03 PM Care Teams 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
[2024-09-23 14:01] LABS: INR 1.3; Prothrombin Time 16.4 Seconds (11.1-14.7)
[2024-09-23 14:07] LABS: Partial Thromboplastin Time 29.3 Seconds (22.3-36.8)
[2024-09-23 14:10] LABS: Troponin I < 0.012 ng/mL (0.000-0.034)
[2024-09-23 14:17] LABS: Alanine Aminotransferase 14 U/L (6-35); Albumin Level 3.7 g/dL (3.5-5.1); Alkaline Phosphatase 146 U/L (38-126); Anion Gap 14 mmol/L (4-12); Aspartate Amino Transferase 24 U/L (14-36); Bilirubin,Total 0.3 mg/dL (0.2-1.3); Blood Urea Nitrogen 74 mg/dL (7-17); Calcium 9.4 mg/dL (8.4-10.2); Carbon Dioxide 14 mmol/L (22-30); Chloride 107 mmol/L (98-107); Estimated CRCL calculation 18 ml/min; Estimated Glomerular Filt Rate 25; Glucose 49 mg/dL (65-110); Magnesium 1.8 mg/dL (1.6-2.3); Potassium 5.4 mmol/L (3.4-5.0); Sodium 135 mmol/L (137-145)
[2024-09-23 14:24] LABS: Influenza A QL RT-PCR Negative (Negative); Influenza B QL RT-PCR Negative (Negative); RSV RNA, RT-PCR Negative (Negative); SARS-CoV-2 RNA PCR Negative (Negative)
[2024-09-23 15:05] LABS: Glucose Point of Care 46 mg/dl (65-105)
[2024-09-23] MEDS: DEXTROSE 50% 25 GM/50 ML SYRINGE IV PUSH (15:15)
[2024-09-23] MEDS: LACTATED RINGERS 1,000 ML 999 ML IV CONT (15:16)
[2024-09-23 16:10] LABS: Glucose Point of Care 138 mg/dl (65-105)
[2024-09-23 17:11] LABS: Glucose Point of Care 101 mg/dl (65-105)
[2024-09-23 17:14] LABS: Add Urine Microscopic? YES; Appearance Urine Clear (Clear); Bacteria Urine 4+ /hpf; Bilirubin Urine Negative (Negative); Blood Urine Negative (Negative); Color Urine Yellow (Yellow); Glucose Urine UA Negative (Negative); Ketones Urine Negative (Negative); Leukocyte Esterase Ur 1+ LEU/UL (Negative); Nitrate Urine Negative (Negative); Protein Urine Trace mg/dL (Negative); RBC Urine 0-2 /hpf (0-2); Specific Grav Ur 1.012 (1.001-1.035); Squamous Epithelial Cell Urine Occasional /hpf (Few); Urobilinogen Urine 0.2 mg/dL (<2.0); pH Urine 6.5 (5.0-9.0)
[2024-09-23] MEDS: ACETAMINOPHEN 500 MG TABLET 1000 MG PO (17:24)
[2024-09-23 18:23] LABS: Glucose Point of Care 89 mg/dl (65-105)
[2024-09-23 19:21] LABS: Glucose Point of Care 115 mg/dl (65-105)
[2024-09-23 20:22] LABS: Glucose Point of Care 95 mg/dl (65-105)
--- NOTE | 2024-09-23 21:11 | ADMGEN ---
This patient, Britney Escobar, was admitted to IMU Room 205-01. Patient/family oriented to hospital policies and general routines including ID bracelet, bed and alarms, visiting hours, pain management, procedures, bathroom and other care routines, personal items, smoking policy, room service/diet, and visiting hours. Information on how to activate the Rapid Response Team has been discussed. Patient/Family are encouraged to report perceived risks to care and to ask questions if they do not understand what they are told or what they should do.
[2024-09-23 21:43] LABS: Glucose Point of Care 75 mg/dl (65-105)
[2024-09-23 23:39] LABS: Glucose Point of Care 85 mg/dl (65-105)
[2024-09-24] VITALS (11 sets, daily range): BP systolic 111–134; BP diastolic 50–62; PULSE 80–97; RESP 16–28; TEMP 36.5–37.1; O2SAT 95–100; BMI 26.1
--- NOTE | 2024-09-24 00:46 | PM.IMHP ---
H&P: HPI History of Present Illness Date/Time: 09/24/24 00:46 Chief Complaint: Shakiness Narrative: This is a very pleasant 83-year-old female with past medical history CKD stage 3, constipation due to opioid therapy, chronic pain, status post pain pump placement currently empty, right femoral fracture 08/2024 status post ORIF, hypertension, [id number]-lzlybtaji diabetes mellitus, paroxysmal atrial fibrillation, history of DVT, interval bowel syndrome, hypertension, GERD, CAD status post CA status post stent, hyperlipidemia, anemia, anxiety and depression, bladder cancer status post cystectomy with ileal conduit/urostomy. This patient presents to [place] ER on 09/23/2024 by EMS reports of shakiness and weakness. She felt somewhat under the weather but did not have chest pain or shortness of breath. She also did not have the back pain/abdominal pain/money brown urine that she usually has with the infected urine. Reportedly her blood pressure was low per the home nurse. ER evaluation demonstrated an afebrile patient with normal sinus rhythm. Saturating well on room air. Blood pressure ranging from 100/58 to 120/63. WBC 11.7, hemoglobin 11, platelets 321, sodium 135, potassium 5.4, BUN 74, serum creatinine 1.89, glucose 49, urinalysis demonstrating 1+ leukocyte esterase, WBC 11-20, occasional squamous cells, 4+ bacteria. Head CT and chest x-ray unremarkable. She received 1 L lactated Ringer bolus, dextrose 25 g IV push, Tylenol 1000 mg, ceftriaxone 1 g IV x1. After arriving to the medical floor the patient reported feeling much better. She only complained of achiness in her right shoulder was usual and requested Tylenol. Review of Systems Review of Systems: All systems reviewed & are unremarkable except as noted in HPI and below (HPI) [facility] Past Medical History Medical History Constipation due to opioid therapy Hypothyroidism Chronic anticoagulation Type 2 diabetes mellitus Chronic pain Chronic kidney disease, stage 3 Irritable bowel syndrome Transient ischemic attack Hypertension Deep venous thrombosis Gastroesophageal reflux disease Coronary artery disease Paroxysmal atrial fibrillation Blind Macular degeneration Chronic right hip pain History of blood transfusion Hepatitis A Anemia Skin cancer Anxiety Depression Arthritis Bladder cancer Bowel obstruction History of rectal polyps Diverticulitis Hyperlipidemia Menieres disease Seasonal allergies Surgical History Surgical History Status post insertion of intrathecal pump chronic morphine sulfate 170.1 mcg daily Greater trochanteric bursitis of right hip surgical re-debridement January 2020 History of coronary artery stent placement History of foot surgery Left History of hip surgery Right hip abductor repair History of coronary artery stent placement H/O local excision of skin lesion History of brain surgery History of back surgery History of ileal conduit History of hysterectomy History of bladder surgery History of appendectomy History of hernia repair History of angioplasty History of cardiac catheterization History of tonsillectomy History of cataract surgery Family History Family History (Updated 09/23/24 @ 21:37 by Archana Ferreira RN) Mother Diabetes mellitus Family history of coronary artery disease Hypertension Myocardial infarction Sibling Family history of malignant neoplasm of bone Diabetes mellitus Family history of malignant neoplasm Family history of Alzheimer's disease Family history of coronary artery disease Carcinoma of colon Hypertension Father Alcoholic cirrhosis of liver Social History Social History Social History: Surrogate medical decision maker: Samir Luz, spouse. Code status: Smoking packs per day: 1 Smoking cigarettes per day: 20.0 Years smoked: 20 Smoking pack-years: 20.00 Smoking status: Former smoker Tobacco type: cigarettes Second hand tobacco smoke exposure: No Smoking end date: 05/12/00 Alcohol intake: current Drinks per week: 0 Alcohol use details: rarely Substance use: former Substance use type: marijuana Other substance usage details: Morphine pain pump Last use: 08/27/2024 Do You Feel Safe in your Home?: Yes Lack of Transportation: No Lack of Food: Never True Current Housing: I Have Housing Concerned About Future Housing: No Difficulty Paying Gas/Electric Bills: No Difficulty Paying for Meds: No Currently Unemployed: No Education: High School Diploma/GED Difficulty w/ Childcare or Family Care: No Living arrangements: with family Additional living arrangements comments: Occupation/Education: retired Gender identity (if verbalized by the patient): Female Sexual Orientation (if Verbalized by the Patient): Straight or Heterosexual Spiritual care concerns: No Agree to blood products: Yes Meds Home Medications and Allergies Home Medications ?Medication ?Instructions ?Recorded ?Confirmed ?Type PreserVision AREDS-2 1 tab-cap PO DAILY 08/16/19 09/23/24 History pen needle, diabetic 32 gauge x #200 ea 07/04/20 09/23/24 Rx 1/4 (Novofine 32) omeprazole 40 mg capsule,delayed 40 mg PO DAILY 1 month #90 caps 06/24/24 09/23/24 Rx release acetaminophen 325 mg tablet 650 mg PO Q6H PRN pain 08/27/24 09/23/24 History dulaglutide 1.5 mg/0.5 mL 1.5 mg subcut WEEKLY 08/27/24 09/23/24 History subcutaneous pen injector (Truliceast [facility]) morphine (PF) 1 syr continuous intrathecal 08/27/24 09/23/24 History infusion DAILY polyethylene glycol 3350 17 17 g PO DAILY PRN constipation 08/27/24 09/23/24 History gram/dose oral powder sennosides 8.6 mg-docusate sodium 2 tablet PO BID PRN constipation 08/27/24 09/23/24 History 50 mg tablet (Senokot-S) Home Medication 1 ea implant DIRECTED ##0 09/11/24 09/23/24 Rx amlodipine 10 mg-atorvastatin 40 1 tablet PO DAILY #30 tabs 09/11/24 09/23/24 Rx mg tablet dapagliflozin propanediol 5 mg 10 mg (2 x 5 mg) PO DAILY #30 tabs 09/11/24 09/23/24 Rx tablet (Farxiga) escitalopram oxalate 20 mg tablet 20 mg PO DAILY #30 tabs 09/11/24 09/23/24 Rx gabapentin 300 mg capsule 300 mg PO DAILY #30 caps 09/11/24 09/23/24 Rx glipizide 5 mg tablet 5 mg PO DAILY #30 tabs 09/11/24 09/23/24 Rx hydrochlorothiazide 25 mg tablet 25 mg PO DAILY #30 tabs 09/11/24 09/23/24 Rx isosorbide mononitrate 60 mg 60 mg PO DAILY #30 tabs 09/11/24 09/23/24 Rx tablet,extended release 24 hr levothyroxine 50 mcg capsule 50 mcg PO DAILY #30 caps 09/11/24 09/23/24 Rx metformin 500 mg tablet,extended 500 mg PO QACBREAK #30 tabs 09/11/24 09/23/24 Rx release 24 hr methocarbamol 500 mg tablet 500 mg PO TID PRN muscle spasm #30 09/11/24 09/23/24 Rx tabs metoprolol succinate 25 mg 37.5 mg (1.5 x 25 mg) PO DAILY #30 09/11/24 09/23/24 Rx tablet,extended release 24 hr tabs nitroglycerin 0.4 mg sublingual 0.4 mg sublingual PRN PRN Chest 09/11/24 09/23/24 Rx tablet Pain #30 tabs oxycodone 5 mg tablet 10 mg (2 x 5 mg) PO DAILY@0630 #12 09/11/24 09/23/24 Rx tabs potassium chloride 10 mEq 10 meq PO DAILY #30 caps 09/11/24 09/23/24 Rx capsule,extended release flash glucose scanning reader #1 ea 09/14/24 09/23/24 Rx (FreeStyle [place] 2 [place]) flash glucose sensor (FreeStyle #2 ea 09/14/24 09/23/24 Rx Marcos 2 Sensor kit) apixaban 5 mg tablet (Eliquis) 5 mg PO BID 09/23/24 09/23/24 History Allergies Allergy/AdvReac Type Severity Reaction Status Date / Time dimenhydrinate Allergy Severe THROAT Verified 09/14/24 15:57 SWELLING iodine Allergy Intermediate Rash Verified 09/14/24 15:57 Contrast Media Allergy Intermediate RASH Uncoded 09/14/24 15:57 Vital Signs Vital Signs - 24 hr 09/23/24 11:44 09/23/24 15:30 09/23/24 16:30 Temperature 97.6 F Pulse Rate 79 83 83 Respiratory Rate 16 16 16 Blood Pressure 100/58 L 119/61 108/66 Pulse Oximetry 100 83 L 99 Oxygen Delivery Room Air 09/23/24 17:30 09/23/24 17:54 09/23/24 18:30 Temperature 97.6 F Pulse Rate 88 89 Respiratory Rate 18 20 Blood Pressure 120/63 111/57 L Pulse Oximetry 97 96 Oxygen Delivery 09/23/24 19:18 09/23/24 19:18 09/23/24 19:18 Temperature 98.5 F Pulse Rate 87 85 Respiratory Rate 17 Blood Pressure 109/50 L Pulse Oximetry 100 100 Oxygen Delivery Room Air 09/23/24 23:31 Temperature 97.8 F Pulse Rate 90 Respiratory Rate 16 Blood Pressure 123/56 L Pulse Oximetry 100 Oxygen Delivery Exam Const: General: comfortable and no acute distress Other: A&O x3 HENMT: Mouth: Yes moist mucous membranes Eyes: Pupils: Equal, round and reactive pupils present Neck: Neck: supple Resp: Effort & Inspection: normal respiratory effort Auscultation: clear to auscultation bilaterally Cardio: Rate: regular rate Rhythm: regular rhythm GI: Inspection: non-distended GI Palp: Yes Soft to palpation and No Tenderness to palpation present (GI) : Other: Urostomy bag with clear yellow urine. Extrem: General: no edema H&P: Results Labs Labs: Short CBC 09/23/24 Range/Units 13:42 WBC 11.7 H (4.5-10.0) K/mm3 Hgb 11.0 L (12.0-15.0) g/dL Hct 34.8 L (37.0-47.0) % Plt Count 321 (150-375) k/mm3 BMP 09/23/24 13:42 Sodium 135 L Potassium 5.4 H Chloride 107 Carbon Dioxide 14 L BUN 74 H D Creatinine 1.89 H Glucose 49 L* Calcium 9.4 Cardiac Enzymes 09/23/24 Range/Units 13:42 Troponin I < 0.012 (0.000-0.034) ng/mL Liver Function 09/23/24 Range/Units 13:42 Total Bilirubin 0.3 (0.2-1.3) mg/dL AST 24 (14-36) U/L ALT 14 (6-35) U/L Alkaline Phosphatase 146 H (38-126) U/L Albumin 3.7 (3.5-5.1) g/dL Urine 09/23/24 Range/Units 17:04 Urine Color Yellow (Yellow) Urine Appearance Clear (Clear) Urine pH 6.5 (5.0-9.0) Ur Specific Morris 1.012 (1.001-1.035) Urine Protein Trace (Negative) mg/dL Urine Glucose (UA) Negative (Negative) mg/dL Assessment and Plan Assessment and plan (1) DWAIN (acute kidney injury): Code(s): N17.9 - Acute kidney failure, unspecified Status: Acute (2) Hypoglycemia: Code(s): E16.2 - Hypoglycemia, unspecified Status: Acute (3) Weakness: Code(s): R53.1 - Weakness Status: Acute (4) Abnormal urinalysis: Code(s): R82.90 - Unspecified abnormal findings in urine Status: Acute (5) Dehydration: Code(s): E86.0 - Dehydration Status: Inactive (6) Hyperkalemia: Code(s): E87.5 - Hyperkalemia Status: Acute Plan This is a very pleasant 83-year-old female with past medical history CKD stage 3, constipation due to opioid therapy, chronic pain, status post pain pump placement currently empty, right femoral fracture 08/2024 status post ORIF, hypertension, [id number] diabetes mellitus, paroxysmal atrial fibrillation, history of DVT, interval bowel syndrome, hypertension, GERD, CAD status post CA status post stent, hyperlipidemia, anemia, anxiety and depression, bladder cancer status post cystectomy with ileal conduit/urostomy. This patient presents to [place] ER on 09/23/2024 by EMS reports of shakiness and weakness. She felt somewhat under the weather but did not have chest pain or shortness of breath. She also did not have the back pain/abdominal pain/money brown urine that she usually has with the infected urine. Reportedly her blood pressure was low per the home nurse. ER evaluation demonstrated an afebrile patient with normal sinus rhythm. Saturating well on room air. Blood pressure ranging from 100/58 to 120/63. WBC 11.7, hemoglobin 11, platelets 321, sodium 135, potassium 5.4, BUN 74, serum creatinine 1.89, glucose 49, urinalysis demonstrating 1+ leukocyte esterase, WBC 11-20, occasional squamous cells, 4+ bacteria. Head CT and chest x-ray unremarkable. She received 1 L lactated Ringer bolus, dextrose 25 g IV push, Tylenol 1000 mg, ceftriaxone 1 g IV x1. After arriving to the medical floor the patient reported feeling much better. She only complained of achiness in her right shoulder was usual and requested Tylenol. ----- Hypoglycemia has resolved. Patient ate a turkey sandwich. Continue Accu-Cheks q.2 hours. Hold home CUSTOMER SERVICES COORDINATOR anti diabetic medications. PTOT. Dehydrated. DWAIN. Status post fluid resuscitation. Hyperkalemia likely due to DWAIN and having potassium on her home med list. Check a BMP now. Hold CUSTOMER SERVICES COORDINATOR potassium She has some arthritic pain of her right shoulder. Tylenol p.r.n. and lidocaine patch p.r.n. Blood pressure soft likely due to dehydration/hypovolemia. Hold CUSTOMER SERVICES COORDINATOR antihypertensives except for metoprolol. Abnormal urinalysis appears to be contaminated. Patient has no evidence of infection including muddy brown urine and abdominal pain/low back pain which she usually gets with her UTIs. She has an elevated white count but no fever that could be reactive. No other signs of infection. Follow-up urine culture. Received ceftriaxone in the ER. Will check a procalcitonin as well to help guide antibiotic management ----- Continue CUSTOMER SERVICES COORDINATOR Eliquis Patient wishes to be full code Saline lock IV Fall precaution, PT OT, ambulate with assistance Home medications restarted as appropriate except as mentioned above. Hospitalist MIPS Advance Care Plan I have confirmed that the patient's Advanced Care Plan is present, code status is documented, or surrogate decision maker is listed in patient medical record.: Yes Medication Reconciliation I have utilized all available resources to obtain, update and review the patients current medications (includes all prescriptions, OTC, herbals, cannabis, and nutritional supplements).: Yes
[2024-09-24] MEDS: ACETAMINOPHEN 500 MG TABLET PO ×3 (00:55→21:18)
[2024-09-24] MEDS: ESCITALOPRAM OXALATE 10 MG TABLET 20 MG PO ×2 (00:55→08:12)
[2024-09-24] MEDS: GABAPENTIN 300 MG CAPSULE PO ×2 (00:56→08:12)
[2024-09-24 01:06] LABS: Basophils Percent Auto 0.5 % (0.2-1.2); Eosinophils Absolute Auto 0.2 K/mm3 (0-0.3); Eosinophils Percent Auto 2.5 % (0-4.4); Hematocrit 29.5 % (37.0-47.0); Hemoglobin 9.5 g/dL (12.0-15.0); Immature Granulocyte Absolute 0.04 K/mm3 (0.00-0.031); Immature Granulocyte Percent A 0.5 % (0-0.5); Lymphocytes Absolute Auto 1.45 K/mm3 (0.9-3.2); Lymphocytes Percent Auto 16.6 % (18.3-44.2); Mean Corpuscular HGB Conc 32.2 g/dl (32-36); Mean Corpuscular Hemoglobin 28.8 pg (26-34); Mean Corpuscular Volume 89.4 fl (80-100); Mean Platelet Volume 8.8 fl (7.4-10.4); Monocytes Absolute Auto 0.8 K/mm3 (0.1-0.6); Monocytes Percent Auto 8.7 % (2.6-8.5); Neutrophils Absolute Auto 6.2 K/mm3 (1.3-6.7); Neutrophils Percent Auto 71.2 % (45.5-73.1); Platelet Count Result 254 k/mm3 (150-375); Red Cell Distribution Width 15.6 % (11.5-14.5); White Blood Count 8.7 K/mm3 (4.5-10.0)
[2024-09-24 01:17] LABS: Anion Gap 12 mmol/L (4-12); Blood Urea Nitrogen 61 mg/dL (7-17); Calcium 9.2 mg/dL (8.4-10.2); Carbon Dioxide 16 mmol/L (22-30); Chloride 108 mmol/L (98-107); Estimated CRCL calculation 22 ml/min; Estimated Glomerular Filt Rate 33; Glucose 71 mg/dL (65-110); Potassium 4.4 mmol/L (3.4-5.0); Sodium 136 mmol/L (137-145)
[2024-09-24 01:33] LABS: Procalcitonin 0.1 ng/mL
[2024-09-24 01:46] LABS: Glucose Point of Care 64 mg/dl (65-105)
[2024-09-24] MEDS: DEXTROSE 5% 1,000 ML 1,000 ML 75 ML IV CONT (01:55)
[2024-09-24] MEDS: oxyCODONE HCL (*CRX) 5 MG TAB IR 10 MG PO (02:25)
[2024-09-24 02:26] LABS: Glucose Point of Care 66 mg/dl (65-105)
[2024-09-24 02:43] LABS: Glucose Point of Care 63 mg/dl (65-105)
[2024-09-24] MEDS: DEXTROSE 50% 25 GM/50 ML SYRINGE IV PUSH (03:32)
[2024-09-24 03:57] LABS: Glucose Point of Care 179 mg/dl (65-105)
[2024-09-24 03:57] LABS: Glucose Point of Care 60 mg/dl (65-105)
[2024-09-24 03:57] LABS: Glucose Point of Care 163 mg/dl (65-105)
[2024-09-24 03:57] LABS: Glucose Point of Care 159 mg/dl (65-105)
[2024-09-24 06:06] LABS: Glucose Point of Care 83 mg/dl (65-105)
[2024-09-24] MEDS: LEVOTHYROXINE SODIUM 50 MCG TABLET PO (06:17)
--- NOTE | 2024-09-24 06:45 | PC.NURSE ---
Patient had hypoglycemic episodes dropping to 60s. Started on D5W per Dr. Marte. Patient given amp of D50 as well. Monitoring blood glucose level q2h.
--- NOTE | 2024-09-24 07:42 | P.PNIM_ITS ---
Progress Note: A&P Assessment and Plan (1) DWAIN (acute kidney injury): Code(s): N17.9 - Acute kidney failure, unspecified Status: Acute (2) Hypoglycemia: Code(s): E16.2 - Hypoglycemia, unspecified Status: Acute (3) Weakness: Code(s): R53.1 - Weakness Status: Acute (4) Abnormal urinalysis: Code(s): R82.90 - Unspecified abnormal findings in urine Status: Acute (5) Dehydration: Code(s): E86.0 - Dehydration Status: Inactive (6) Hyperkalemia: Code(s): E87.5 - Hyperkalemia Status: Acute Plan This is a very pleasant 83-year-old female with past medical history CKD stage 3, constipation due to opioid therapy, chronic pain, status post pain pump placement currently empty, right femoral fracture 08/2024 status post ORIF, hypertension, [id number] diabetes mellitus, paroxysmal atrial fibrillation, history of DVT, interval bowel syndrome, hypertension, GERD, CAD status post [place] status post stent, hyperlipidemia, anemia, anxiety and depression, bladder cancer status post cystectomy with ileal conduit/urostomy. This patient presents to [facility] on 09/23/2024 by EMS reports of shakiness and weakness. She felt somewhat under the weather but did not have chest pain or shortness of breath. She also did not have the back pain/abdominal pain/money brown urine that she usually has with the infected urine. Reportedly her blood pressure was low per the home nurse. ER evaluation demonstrated an afebrile patient with normal sinus rhythm. Saturating well on room air. Blood pressure ranging from 100/58 to 120/63. WBC 11.7, hemoglobin 11, platelets 321, sodium 135, potassium 5.4, BUN 74, serum creatinine 1.89, glucose 49, urinalysis demonstrating 1+ leukocyte esterase, WBC 11-20, occasional squamous cells, 4+ bacteria. Head CT and chest x-ray unremarkable. She received 1 L lactated Ringer bolus, dextrose 25 g IV push, Tylenol 1000 mg, ceftriaxone 1 g IV x1. Hypoglycemia has resolved. Patient ate a turkey sandwich. Continue Accu-Cheks q.2 hours. Hold home [employer] anti diabetic medications. PTOT. Will hold her glipizide and metformin [facility]. Whole D5 water and monitor Dehydration DWAIN creatinine of 1.8 on admission hold hydrochlorothiazide. Creatinine improving. Mild metabolic acidosis due to DWAIN Hyperkalemia due to DWAIN mild recheck and monitor. Resolved Right shoulder arthritis Tylenol p.r.n. lidocaine patch p.r.n. Hypo tension likely due to above it is improved with IV fluid. Blood pressure medication on hold UTI: Abnormal urinalysis appears to be contaminated. Patient has no evidence of infection including muddy brown urine and abdominal pain/low back pain which she usually gets with her UTIs. She has an elevated white count but no fever that could be reactive. Repeat WBC is normal. No other signs of infection. Follow- up urine culture. Received ceftriaxone in the ER. Procalcitonin normal. Will follow urine culture. Will continues ceftriaxone Mild chronic anemia DVT prophylaxis Eliquis Code status full code Fall precaution, PT OT, ambulate with assistance Subjective Date/time seen: 09/24/24 07:42 Interval history: Patient feeling better. No nausea vomiting. Denies any abdominal pain. No cough fever chills shortness of breath or chest pain. Review of Systems Review of Systems: All systems reviewed & are unremarkable except as noted in HPI and below Exam Narrative: GENERAL:[No acute distress, non-toxic appearing.] HEAD: Normal with no signs of head trauma. EYES: EOMI, conjunctiva normal ENT: Hearing grossly intact LUNGS: Nonlabored breathing. Clear to auscultation HEART: [Regular rate and rhythm] ABD: [Soft], [nontender to palpation] high ileostomy in-situ left quadrant with pain pump in situ EXT: Normal range of motion SKIN: Small decub ulcer that does not appear infected NEURO: [Alert and oriented x 3. No gross focal sensory or strength deficits other than some tremors.] PSYCH: Normal affect Objective Data Vital Signs Vital Signs: Vital Signs - 24 hr 09/23/24 11:44 09/23/24 15:30 09/23/24 16:30 Temperature 97.6 F Pulse Rate 79 83 83 Respiratory Rate 16 16 16 Blood Pressure 100/58 L 119/61 108/66 Pulse Oximetry 100 83 L 99 Oxygen Delivery Room Air 09/23/24 17:30 09/23/24 17:54 09/23/24 18:30 Temperature 97.6 F Pulse Rate 88 89 Respiratory Rate 18 20 Blood Pressure 120/63 111/57 L Pulse Oximetry 97 96 Oxygen Delivery 09/23/24 19:18 09/23/24 19:18 09/23/24 19:18 Temperature 98.5 F Pulse Rate 87 85 Respiratory Rate 17 Blood Pressure 109/50 L Pulse Oximetry 100 100 Oxygen Delivery Room Air 09/23/24 22:00 09/23/24 23:31 09/24/24 00:00 Temperature 97.8 F Pulse Rate 89 90 93 Respiratory Rate 16 Blood Pressure 123/56 L Pulse Oximetry 100 Oxygen Delivery 09/24/24 02:00 09/24/24 03:43 09/24/24 04:00 Temperature 97.9 F Pulse Rate 84 93 89 Respiratory Rate 16 Blood Pressure 132/62 Pulse Oximetry 95 Oxygen Delivery 09/24/24 06:00 Temperature Pulse Rate 80 Respiratory Rate Blood Pressure Pulse Oximetry Oxygen Delivery Intake/Output Intake/Output: Intake & Output 09/21/24 09/22/24 09/23/24 09/24/24 23:59 23:59 23:59 23:59 Intake Total 1050 480 Output Total 2125 Balance 1050 -1645 Meds/Results Medications: Active Medications Generic Name Dose Route Start Last Admin Trade Name Freq PRN Reason Stop Dose Admin Acetaminophen 500 mg 09/23/24 23:55 09/24/24 00:55 Acetaminophen 500 Mg Tablet PO 500 mg Q4H PRN Administration Mild Pain (1-3) or Fever Apixaban 5 mg 09/24/24 09:00 Apixaban 5 Mg Tablet PO Q12HR DINORA Escitalopram Oxalate 20 mg 09/24/24 00:45 09/24/24 00:55 Escitalopram Oxalate 10 Mg Tablet PO 20 mg DAILY DINORA Administration Gabapentin 300 mg 09/24/24 00:45 09/24/24 00:56 Gabapentin 300 Mg Capsule PO 300 mg DAILY DINORA Administration Dextrose 1,000 mls @ 75 mls/hr 09/24/24 01:45 09/24/24 01:55 Dextrose 5% 1,000 Ml IV CONT 75 mls/hr .[id number] DINORA Administration Levothyroxine Sodium 50 mcg 09/24/24 06:30 09/24/24 06:17 Levothyroxine Sodium 50 Mcg Tablet PO 50 mcg DAILY@0630 DINORA Administration Lidocaine 1 patch 09/24/24 09:00 Lidocaine 5% Patch TRANSDERM DAILY DINORA Methocarbamol 500 mg 09/24/24 00:42 Methocarbamol 500 Mg Tablet PO TID PRN muscle spasm Metoprolol Succinate 37.5 mg 09/24/24 09:00 Metoprolol Succinate Ext Rel 12.5 Mg Tabcr PO DAILY DINORA Oxycodone HCl 10 mg 09/24/24 00:42 09/24/24 02:25 Oxycodone Hcl (*Crx) 5 Mg Tab Ir PO 10 mg DAILY@0630 PRN Administration Pain Rated 4-6 Pantoprazole Sodium 40 mg 09/24/24 09:00 Pantoprazole 40 Mg Tablet PO Q12HR DINORA Polyethylene Glycol 17 gm 09/24/24 00:42 Polyethylene Glycol 3350 17 Gm Powd.Pack PO DAILY PRN constipation Senna/Docusate Sodium 2 tab 09/24/24 00:42 Senna/Docusate Sodium Tablet PO BID PRN constipation Radiology Results: ITS Impressions Head CT 09/23/24 14:23 Impression: No significant abnormality seen. Chest X-Ray 09/23/24 14:29 Impression: Normal chest. Labs Labs: Laboratory Results - last 24 hr 09/23/24 09/23/24 09/23/24 13:42 15:03 16:07 WBC 11.7 H RBC 3.83 L Hgb 11.0 L Hct 34.8 L MCV 90.9 MCH 28.7 MCHC 31.6 L RDW 15.5 H Plt Count 321 MPV 9.0 Immature Gran % (Auto) 0.4 Neut % (Auto) 88.2 H Lymph % (Auto) 6.5 L [place] % (Auto) 4.3 Eos % (Auto) 0.2 Baso % (Auto) 0.4 Lymph # (Auto) 0.76 L [place] # (Auto) 0.5 Eos # (Auto) 0.0 Baso # (Auto) 0.1 Abs Immat Gran (auto) 0.05 H Absolute Neuts (auto) 10.4 H Absolute Nucleated RBC 0.000 Nucleated RBC % 0.0 PT 16.4 H INR 1.3 APTT 29.3 Sodium 135 L Potassium 5.4 H Chloride 107 Carbon Dioxide 14 L Anion Gap 14 H BUN 74 H D Creatinine 1.89 H Estim Creat Clear Calc 18 Estimated GFR 25 L Glucose 49 L* POC Capillary Glucose 46 L* 138 H Calcium 9.4 Magnesium 1.8 Total Bilirubin 0.3 AST 24 ALT 14 Alkaline Phosphatase 146 H Troponin I < 0.012 Total Protein 7.0 Albumin 3.7 Procalcitonin Urine Color Urine Appearance Urine pH Ur Specific [place] Urine Protein Urine Glucose (UA) Urine Ketones Ur Blood (Man) Urine Nitrate Urine Bilirubin Urine Urobilinogen Leukocyte Esterase Rfl Urine RBC Urine WBC Ur Squamous Epith Cells Urine Bacteria Urine Casts Influenza A (RT-PCR) Negative Influenza B (RT-PCR) Negative RSV (RT-PCR) Negative SARS-CoV-2 RNA (RT-PCR) Negative 09/23/24 09/23/24 09/23/24 17:04 17:09 18:21 WBC RBC Hgb Hct MCV MCH MCHC RDW Plt Count MPV Immature Gran % (Auto) Neut % (Auto) Lymph % (Auto) [place] % (Auto) Eos % (Auto) Baso % (Auto) Lymph # (Auto) [place] # (Auto) Eos # (Auto) Baso # (Auto) Abs Immat Gran (auto) Absolute Neuts (auto) Absolute Nucleated RBC Nucleated RBC % PT INR APTT Sodium Potassium Chloride Carbon Dioxide Anion Gap BUN Creatinine Estim Creat Clear Calc Estimated GFR Glucose POC Capillary Glucose 101 89 Calcium Magnesium Total Bilirubin AST ALT Alkaline Phosphatase Troponin I Total Protein Albumin Procalcitonin Urine Color Yellow Urine Appearance Clear Urine pH 6.5 Ur Specific [place] 1.012 Urine Protein Trace Urine Glucose (UA) Negative Urine Ketones Negative Ur Blood (Man) Negative Urine Nitrate Negative Urine Bilirubin Negative Urine Urobilinogen 0.2 Leukocyte Esterase Rfl 1+ H Urine RBC 0-2 Urine WBC 11-20 H Ur Squamous Epith Cells Occasional Urine Bacteria 4+ H Urine Casts 3-5 Influenza A (RT-PCR) Influenza B (RT-PCR) RSV (RT-PCR) SARS-CoV-2 RNA (RT-PCR) 09/23/24 09/23/24 09/23/24 19:18 20:13 21:40 WBC RBC Hgb Hct MCV MCH MCHC RDW Plt Count MPV Immature Gran % (Auto) Neut % (Auto) Lymph % (Auto) [place] % (Auto) Eos % (Auto) Baso % (Auto) Lymph # (Auto) [place] # (Auto) Eos # (Auto) Baso # (Auto) Abs Immat Gran (auto) Absolute Neuts (auto) Absolute Nucleated RBC Nucleated RBC % PT INR APTT Sodium Potassium Chloride Carbon Dioxide Anion Gap BUN Creatinine Estim Creat Clear Calc Estimated GFR Glucose POC Capillary Glucose 115 H 95 75 Calcium Magnesium Total Bilirubin AST ALT Alkaline Phosphatase Troponin I Total Protein Albumin Procalcitonin Urine Color Urine Appearance Urine pH Ur Specific [place] Urine Protein Urine Glucose (UA) Urine Ketones Ur Blood (Man) Urine Nitrate Urine Bilirubin Urine Urobilinogen Leukocyte Esterase Rfl Urine RBC Urine WBC Ur Squamous Epith Cells Urine Bacteria Urine Casts Influenza A (RT-PCR) Influenza B (RT-PCR) RSV (RT-PCR) SARS-CoV-2 RNA (RT-PCR) 09/23/24 09/24/24 09/24/24 23:23 00:59 01:41 WBC 8.7 RBC 3.30 L Hgb 9.5 L Hct 29.5 L MCV 89.4 MCH 28.8 MCHC 32.2 RDW 15.6 H Plt Count 254 MPV 8.8 Immature Gran % (Auto) 0.5 Neut % (Auto) 71.2 Lymph % (Auto) 16.6 L [place] % (Auto) 8.7 H Eos % (Auto) 2.5 Baso % (Auto) 0.5 Lymph # (Auto) 1.45 [place] # (Auto) 0.8 H Eos # (Auto) 0.2 Baso # (Auto) 0.0 Abs Immat Gran (auto) 0.04 H Absolute Neuts (auto) 6.2 Absolute Nucleated RBC 0.000 Nucleated RBC % 0.0 PT INR APTT Sodium 136 L Potassium 4.4 Chloride 108 H Carbon Dioxide 16 L Anion Gap 12 BUN 61 H D Creatinine 1.52 H Estim Creat Clear Calc 22 Estimated GFR 33 L Glucose 71 POC Capillary Glucose 85 64 L Calcium 9.2 Magnesium Total Bilirubin AST ALT Alkaline Phosphatase Troponin I Total Protein Albumin Procalcitonin 0.1 Urine Color Urine Appearance Urine pH Ur Specific [place] Urine Protein Urine Glucose (UA) Urine Ketones Ur Blood (Man) Urine Nitrate Urine Bilirubin Urine Urobilinogen Leukocyte Esterase Rfl Urine RBC Urine WBC Ur Squamous Epith Cells Urine Bacteria Urine Casts Influenza A (RT-PCR) Influenza B (RT-PCR) RSV (RT-PCR) SARS-CoV-2 RNA (RT-PCR) 09/24/24 09/24/24 09/24/24 02:21 02:40 03:24 WBC RBC Hgb Hct MCV MCH MCHC RDW Plt Count MPV Immature Gran % (Auto) Neut % (Auto) Lymph % (Auto) [place] % (Auto) Eos % (Auto) Baso % (Auto) Lymph # (Auto) [place] # (Auto) Eos # (Auto) Baso # (Auto) Abs Immat Gran (auto) Absolute Neuts (auto) Absolute Nucleated RBC Nucleated RBC % PT INR APTT Sodium Potassium Chloride Carbon Dioxide Anion Gap BUN Creatinine Estim Creat Clear Calc Estimated GFR Glucose POC Capillary Glucose 66 63 L 60 L Calcium Magnesium Total Bilirubin AST ALT Alkaline Phosphatase Troponin I Total Protein Albumin Procalcitonin Urine Color Urine Appearance Urine pH Ur Specific [place] Urine Protein Urine Glucose (UA) Urine Ketones Ur Blood (Man) Urine Nitrate Urine Bilirubin Urine Urobilinogen Leukocyte Esterase Rfl Urine RBC Urine WBC Ur Squamous Epith Cells Urine Bacteria Urine Casts Influenza A (RT-PCR) Influenza B (RT-PCR) RSV (RT-PCR) SARS-CoV-2 RNA (RT-PCR) 09/24/24 09/24/24 09/24/24 03:48 03:49 03:52 WBC RBC Hgb Hct MCV MCH MCHC RDW Plt Count MPV Immature Gran % (Auto) Neut % (Auto) Lymph % (Auto) [place] % (Auto) Eos % (Auto) Baso % (Auto) Lymph # (Auto) [place] # (Auto) Eos # (Auto) Baso # (Auto) Abs Immat Gran (auto) Absolute Neuts (auto) Absolute Nucleated RBC Nucleated RBC % PT INR APTT Sodium Potassium Chloride Carbon Dioxide Anion Gap BUN Creatinine Estim Creat Clear Calc Estimated GFR Glucose POC Capillary Glucose 179 H 163 H 159 H Calcium Magnesium Total Bilirubin AST ALT Alkaline Phosphatase Troponin I Total Protein Albumin Procalcitonin Urine Color Urine Appearance Urine pH Ur Specific [place] Urine Protein Urine Glucose (UA) Urine Ketones Ur Blood (Man) Urine Nitrate Urine Bilirubin Urine Urobilinogen Leukocyte Esterase Rfl Urine RBC Urine WBC Ur Squamous Epith Cells Urine Bacteria Urine Casts Influenza A (RT-PCR) Influenza B (RT-PCR) RSV (RT-PCR) SARS-CoV-2 RNA (RT-PCR) 09/24/24 05:56 WBC RBC Hgb Hct MCV MCH MCHC RDW Plt Count MPV Immature Gran % (Auto) Neut % (Auto) Lymph % (Auto) [place] % (Auto) Eos % (Auto) Baso % (Auto) Lymph # (Auto) [place] # (Auto) Eos # (Auto) Baso # (Auto) Abs Immat Gran (auto) Absolute Neuts (auto) Absolute Nucleated RBC Nucleated RBC % PT INR APTT Sodium Potassium Chloride Carbon Dioxide Anion Gap BUN Creatinine Estim Creat Clear Calc Estimated GFR Glucose POC Capillary Glucose 83 Calcium Magnesium Total Bilirubin AST ALT Alkaline Phosphatase Troponin I Total Protein Albumin Procalcitonin Urine Color Urine Appearance Urine pH Ur Specific [place] Urine Protein Urine Glucose (UA) Urine Ketones Ur Blood (Man) Urine Nitrate Urine Bilirubin Urine Urobilinogen Leukocyte Esterase Rfl Urine RBC Urine WBC Ur Squamous Epith Cells Urine Bacteria Urine Casts Influenza A (RT-PCR) Influenza B (RT-PCR) RSV (RT-PCR) SARS-CoV-2 RNA (RT-PCR)
[2024-09-24] MEDS: METOPROLOL SUCCINATE EXT REL 12.5 MG TABCR 37.5 MG PO (08:11)
[2024-09-24] MEDS: APIXABAN 5 MG TABLET PO ×2 (08:12→20:10)
[2024-09-24] MEDS: PANTOPRAZOLE 40 MG TABLET PO ×2 (08:12→20:10)
[2024-09-24] MEDS: LIDOCAINE 5% PATCH 1 PATCH TRANSDERM (08:13)
[2024-09-24 08:29] LABS: Glucose Point of Care 105 mg/dl (65-105)
[2024-09-24 12:03] LABS: Glucose Point of Care 118 mg/dl (65-105)
[2024-09-24 14:40] LABS: Glucose Point of Care 182 mg/dl (65-105)
[2024-09-24 16:15] LABS: Anion Gap 12 mmol/L (4-12); Blood Urea Nitrogen 41 mg/dL (7-17); Calcium 9.2 mg/dL (8.4-10.2); Carbon Dioxide 16 mmol/L (22-30); Chloride 108 mmol/L (98-107); Estimated CRCL calculation 26 ml/min; Estimated Glomerular Filt Rate 40; Glucose 185 mg/dL (65-110); Potassium 4.4 mmol/L (3.4-5.0); Sodium 136 mmol/L (137-145)
[2024-09-24 17:01] LABS: Glucose Point of Care 183 mg/dl (65-105)
[2024-09-24 20:26] LABS: Glucose Point of Care 239 mg/dl (65-105)
[2024-09-24] MEDS: SENNA/DOCUSATE SODIUM TABLET 2 TAB PO (21:19)
[2024-09-25 00:19] VITALS: RESP 28; TEMP 37.1; O2SAT 86
[2024-09-25 04:44] LABS: Basophils Absolute Auto 0.1 K/mm3 (0.0-0.1); Basophils Percent Auto 0.7 % (0.2-1.2); Eosinophils Absolute Auto 0.4 K/mm3 (0-0.3); Eosinophils Percent Auto 5.7 % (0-4.4); Hematocrit 30.9 % (37.0-47.0); Hemoglobin 9.7 g/dL (12.0-15.0); Immature Granulocyte Absolute 0.02 K/mm3 (0.00-0.031); Immature Granulocyte Percent A 0.3 % (0-0.5); Lymphocytes Absolute Auto 1.49 K/mm3 (0.9-3.2); Lymphocytes Percent Auto 20.4 % (18.3-44.2); Mean Corpuscular HGB Conc 31.4 g/dl (32-36); Mean Corpuscular Volume 89.3 fl (80-100); Mean Platelet Volume 9.1 fl (7.4-10.4); Monocytes Absolute Auto 0.7 K/mm3 (0.1-0.6); Monocytes Percent Auto 9.6 % (2.6-8.5); Neutrophils Absolute Auto 4.6 K/mm3 (1.3-6.7); Neutrophils Percent Auto 63.3 % (45.5-73.1); Platelet Count Result 287 k/mm3 (150-375); Red Blood Count 3.46 M/mm3 (4.2-5.4); Red Cell Distribution Width 15.4 % (11.5-14.5); White Blood Count 7.3 K/mm3 (4.5-10.0)
[2024-09-25 04:51] LABS: Alanine Aminotransferase 13 U/L (6-35); Albumin Level 3.2 g/dL (3.5-5.1); Alkaline Phosphatase 130 U/L (38-126); Anion Gap 10 mmol/L (4-12); Aspartate Amino Transferase 22 U/L (14-36); Bilirubin,Total 0.4 mg/dL (0.2-1.3); Blood Urea Nitrogen 42 mg/dL (7-17); Calcium 9.9 mg/dL (8.4-10.2); Carbon Dioxide 20 mmol/L (22-30); Chloride 109 mmol/L (98-107); Estimated CRCL calculation 29 ml/min; Estimated Glomerular Filt Rate 45; Glucose 106 mg/dL (65-110); Magnesium 1.8 mg/dL (1.6-2.3); Potassium 4.3 mmol/L (3.4-5.0); Sodium 139 mmol/L (137-145)
[2024-09-25 06:17] VITALS: BP 142/62; PULSE 90; RESP 18; TEMP 36.4; O2SAT 100
[2024-09-25] MEDS: LEVOTHYROXINE SODIUM 50 MCG TABLET PO (06:18)
[2024-09-25] MEDS: ACETAMINOPHEN 500 MG TABLET PO (06:24)
[2024-09-25 08:00] VITALS: BP 140/67; PULSE 102; RESP 18; TEMP 36.7; O2SAT 100
[2024-09-25 08:02] LABS: Glucose Point of Care 117 mg/dl (65-105)
[2024-09-25] MEDS: LIDOCAINE 5% PATCH 1 PATCH TRANSDERM (09:00)
[2024-09-25] MEDS: METOPROLOL SUCCINATE EXT REL 12.5 MG TABCR 37.5 MG PO (09:02)
[2024-09-25] MEDS: GABAPENTIN 300 MG CAPSULE PO (09:02)
[2024-09-25] MEDS: ESCITALOPRAM OXALATE 10 MG TABLET 20 MG PO (09:03)
[2024-09-25] MEDS: APIXABAN 5 MG TABLET PO ×2 (09:03→20:02)
[2024-09-25] MEDS: PANTOPRAZOLE 40 MG TABLET PO ×2 (09:03→20:02)
--- NOTE | 2024-09-25 10:29 | PM.IMPN ---
Progress Note: A&P Assessment and Plan (1) DWAIN (acute kidney injury): Code(s): N17.9 - Acute kidney failure, unspecified Status: Acute Assessment and Plan: patient creatinine is improving. Will continue current treatment monitor closely. (2) Hypoglycemia: Code(s): E16.2 - Hypoglycemia, unspecified Status: Acute Assessment and Plan: Sugar is better and stable (3) Weakness: Code(s): R53.1 - Weakness Status: Acute Assessment and Plan: start physical therapy. (4) Abnormal urinalysis: Code(s): R82.90 - Unspecified abnormal findings in urine Status: Acute Assessment and Plan: UTI, culture showing E coli. will continue with IV antibiotics (5) Dehydration: Code(s): E86.0 - Dehydration Status: Inactive Assessment and Plan: improving (6) Hyperkalemia: Code(s): E87.5 - Hyperkalemia Status: Acute Assessment and Plan: resolved Plan This is a very pleasant 83-year-old female with past medical history CKD stage 3, constipation due to opioid therapy, chronic pain, status post pain pump placement currently empty, right femoral fracture 08/2024 status post ORIF, hypertension, [id number] diabetes mellitus, paroxysmal atrial fibrillation, history of DVT, interval bowel syndrome, hypertension, GERD, CAD status post [place] status post stent, hyperlipidemia, anemia, anxiety and depression, bladder cancer status post cystectomy with ileal conduit/urostomy. This patient presents to [facility] on 09/23/2024 by EMS reports of shakiness and weakness. She felt somewhat under the weather but did not have chest pain or shortness of breath. She also did not have the back pain/abdominal pain/money brown urine that she usually has with the infected urine. Reportedly her blood pressure was low per the home nurse. ER evaluation demonstrated an afebrile patient with normal sinus rhythm. Saturating well on room air. Blood pressure ranging from 100/58 to 120/63. WBC 11.7, hemoglobin 11, platelets 321, sodium 135, potassium 5.4, BUN 74, serum creatinine 1.89, glucose 49, urinalysis demonstrating 1+ leukocyte esterase, WBC 11-20, occasional squamous cells, 4+ bacteria. Head CT and chest x-ray unremarkable. She received 1 L lactated Ringer bolus, dextrose 25 g IV push, Tylenol 1000 mg, ceftriaxone 1 g IV x1. Hypoglycemia has resolved. Patient ate a turkey sandwich. Continue Accu-Cheks q.2 hours. Hold home [employer] anti diabetic medications. PTOT. Will hold her glipizide and metformin [facility]. Whole D5 water and monitor Dehydration DWAIN creatinine of 1.8 on admission hold hydrochlorothiazide. Creatinine improving. Mild metabolic acidosis due to DWAIN Hyperkalemia due to DWAIN mild recheck and monitor. Resolved Right shoulder arthritis Tylenol p.r.n. lidocaine patch p.r.n. Hypo tension likely due to above it is improved with IV fluid. Blood pressure medication on hold UTI: Abnormal urinalysis appears to be contaminated. Patient has no evidence of infection including muddy brown urine and abdominal pain/low back pain which she usually gets with her UTIs. She has an elevated white count but no fever that could be reactive. Repeat WBC is normal. No other signs of infection. Follow-up urine culture. Received ceftriaxone in the ER. Procalcitonin normal. Will follow urine culture. Will continues ceftriaxone Mild chronic anemia DVT prophylaxis Eliquis Code status full code Fall precaution, PT OT, ambulate with assistance Subjective Date/time seen: 09/25/24 10:29 Interval history: Patient was seen during the morning rounds today. Patient has a UTI and urine culture shows E coli. Patient feeling better. No nausea vomiting. Denies any abdominal pain. No cough fever chills shortness of breath or chest pain. Review of Systems Review of Systems: All systems reviewed & are unremarkable except as noted in HPI and below Exam Narrative: GENERAL:[No acute distress, non-toxic appearing.] HEAD: Normal with no signs of head trauma. EYES: EOMI, conjunctiva normal ENT: Hearing grossly intact LUNGS: Nonlabored breathing. Clear to auscultation HEART: [Regular rate and rhythm] ABD: [Soft], [nontender to palpation] high ileostomy in-situ left quadrant with pain pump in situ EXT: Normal range of motion SKIN: Small decub ulcer that does not appear infected NEURO: [Alert and oriented x 3. No gross focal sensory or strength deficits other than some tremors.] PSYCH: Normal affect Const: General: comfortable and no acute distress Other: A&O x3 HENMT: Mouth: Yes moist mucous membranes Eyes: Pupils: Equal, round and reactive pupils present Neck: Neck: supple Resp: Effort & Inspection: normal respiratory effort Auscultation: clear to auscultation bilaterally Cardio: Rate: regular rate Rhythm: regular rhythm GI: Inspection: non-distended : Other: Urostomy bag with clear yellow urine. Neuro: Cranial nerves: Yes Equal, round and reactive pupils present Extrem: General: no edema Objective Data Vital Signs Vital Signs: Vital Signs - 24 hr 09/24/24 12:00 09/24/24 12:00 09/24/24 16:00 Temperature 36.8 C Pulse Rate 94 95 Respiratory Rate 28 H Blood Pressure 134/57 L Pulse Oximetry 97 Oxygen Delivery Room Air 09/24/24 20:00 09/24/24 20:54 09/25/24 00:19 Temperature 37.1 C 37.1 C Pulse Rate 92 Respiratory Rate 28 H 28 H Blood Pressure 111/50 L Pulse Oximetry 100 86 L Oxygen Delivery Room Air 09/25/24 06:17 09/25/24 08:00 09/25/24 08:36 Temperature 36.4 C 36.7 C Pulse Rate 90 102 H Respiratory Rate 18 18 Blood Pressure 142/62 H 140/67 Pulse Oximetry 100 100 Oxygen Delivery Room Air Intake/Output Intake/Output: Intake & Output 09/22/24 09/23/24 09/24/24 09/25/24 23:59 23:59 23:59 23:59 Intake Total 1050 1670 200 Output Total 3475 1000 Balance 1050 -1805 -800 Meds/Results Medications: Active Medications Generic Name Dose Route Start Last Admin Trade Name Freq PRN Reason Stop Dose Admin Acetaminophen 500 mg 09/23/24 23:55 09/25/24 06:24 Acetaminophen 500 Mg Tablet PO 500 mg Q4H PRN Administration Mild Pain (1-3) or Fever Apixaban 5 mg 09/24/24 09:00 09/25/24 09:03 Apixaban 5 Mg Tablet PO 5 mg Q12HR DINORA Administration Escitalopram Oxalate 20 mg 09/24/24 00:45 09/25/24 09:03 Escitalopram Oxalate 10 Mg Tablet PO 20 mg DAILY DINORA Administration Gabapentin 300 mg 09/24/24 00:45 09/25/24 09:02 Gabapentin 300 Mg Capsule PO 300 mg DAILY DINORA Administration Dextrose 1,000 mls @ 75 mls/hr 09/24/24 01:45 09/24/24 01:55 Dextrose 5% 1,000 Ml IV CONT 75 mls/hr .[id number] DINORA Administration Ceftriaxone Sodium 1 gm in 50 mls @ 100 mls/hr 09/24/24 09:00 09/25/24 09:00 Rocephin 1 Gm/Ns 50 Ml IVPB 100 mls/hr Q24H DINORA Administration Levothyroxine Sodium 50 mcg 09/24/24 06:30 09/25/24 06:18 Levothyroxine Sodium 50 Mcg Tablet PO 50 mcg DAILY@0630 DINORA Administration Lidocaine 1 patch 09/24/24 09:00 09/25/24 09:00 Lidocaine 5% Patch TRANSDERM 1 patch DAILY DINORA Administration Methocarbamol 500 mg 09/24/24 00:42 Methocarbamol 500 Mg Tablet PO TID PRN muscle spasm Metoprolol Succinate 37.5 mg 09/24/24 09:00 09/25/24 09:02 Metoprolol Succinate Ext Rel 12.5 Mg Tabcr PO 37.5 mg DAILY DINORA Administration Oxycodone HCl 10 mg 09/24/24 00:42 09/24/24 02:25 Oxycodone Hcl (*Crx) 5 Mg Tab Ir PO 10 mg DAILY@0630 PRN Administration Pain Rated 4-6 Pantoprazole Sodium 40 mg 09/24/24 09:00 09/25/24 09:03 Pantoprazole 40 Mg Tablet PO 40 mg Q12HR DINORA Administration Polyethylene Glycol 17 gm 09/24/24 00:42 Polyethylene Glycol 3350 17 Gm Powd.Pack PO DAILY PRN constipation Senna/Docusate Sodium 2 tab 09/24/24 00:42 09/24/24 21:19 Senna/Docusate Sodium Tablet PO 2 tab BID PRN Administration constipation Radiology Results: ITS Impressions Head CT 09/23/24 14:23 Impression: No significant abnormality seen. Chest X-Ray 09/23/24 14:29 Impression: Normal chest. Labs Labs: Laboratory Results - last 24 hr 09/24/24 09/24/24 09/24/24 12:01 14:38 15:44 WBC RBC Hgb Hct MCV MCH MCHC RDW Plt Count MPV Immature Gran % (Auto) Neut % (Auto) Lymph % (Auto) [place] % (Auto) Eos % (Auto) Baso % (Auto) Lymph # (Auto) [place] # (Auto) Eos # (Auto) Baso # (Auto) Abs Immat Gran (auto) Absolute Neuts (auto) Absolute Nucleated RBC Nucleated RBC % Sodium 136 L Potassium 4.4 Chloride 108 H Carbon Dioxide 16 L Anion Gap 12 BUN 41 H D Creatinine 1.28 H Estim Creat Clear Calc 26 Estimated GFR 40 L Glucose 185 H POC Capillary Glucose 118 H 182 H Calcium 9.2 Magnesium Total Bilirubin AST ALT Alkaline Phosphatase Total Protein Albumin 09/24/24 09/24/24 09/25/24 16:58 20:03 04:08 WBC 7.3 RBC 3.46 L Hgb 9.7 L Hct 30.9 L MCV 89.3 MCH 28.0 MCHC 31.4 L RDW 15.4 H Plt Count 287 MPV 9.1 Immature Gran % (Auto) 0.3 Neut % (Auto) 63.3 Lymph % (Auto) 20.4 [place] % (Auto) 9.6 H Eos % (Auto) 5.7 H Baso % (Auto) 0.7 Lymph # (Auto) 1.49 [place] # (Auto) 0.7 H Eos # (Auto) 0.4 H Baso # (Auto) 0.1 Abs Immat Gran (auto) 0.02 Absolute Neuts (auto) 4.6 Absolute Nucleated RBC 0.000 Nucleated RBC % 0.0 Sodium 139 Potassium 4.3 Chloride 109 H Carbon Dioxide 20 L Anion Gap 10 BUN 42 H Creatinine 1.14 H Estim Creat Clear Calc 29 Estimated GFR 45 L Glucose 106 POC Capillary Glucose 183 H 239 H Calcium 9.9 Magnesium 1.8 Total Bilirubin 0.4 AST 22 ALT 13 Alkaline Phosphatase 130 H Total Protein 7.0 Albumin 3.2 L 09/25/24 07:57 WBC RBC Hgb Hct MCV MCH MCHC RDW Plt Count MPV Immature Gran % (Auto) Neut % (Auto) Lymph % (Auto) [place] % (Auto) Eos % (Auto) Baso % (Auto) Lymph # (Auto) [place] # (Auto) Eos # (Auto) Baso # (Auto) Abs Immat Gran (auto) Absolute Neuts (auto) Absolute Nucleated RBC Nucleated RBC % Sodium Potassium Chloride Carbon Dioxide Anion Gap BUN Creatinine Estim Creat Clear Calc Estimated GFR Glucose POC Capillary Glucose 117 H Calcium Magnesium Total Bilirubin AST ALT Alkaline Phosphatase Total Protein Albumin
--- NOTE | 2024-09-25 12:25 | PCPTNOTE ---
On 09/25/24, the student, TAISHA Amezcua, provided care and completed [facility] documentation on this patient. I have reviewed the student's documentation and agree with the findings.
--- NOTE | 2024-09-25 14:23 | PC.NURSE ---
On 09/25/24, the student, [Shalonda Zamora], provided care and completed [facility] documentation on this patient. I have reviewed the student's documentation and agree with the findings.
[2024-09-25 15:39] VITALS: BP 136/97; PULSE 97; RESP 16; TEMP 36.6; O2SAT 100
[2024-09-25] MEDS: AMOXICILLIN/CLAVULANATE K 875-125 MG TAB 1 TABLET PO ×2 (15:52→23:57)
[2024-09-25 20:04] LABS: Glucose Point of Care 154 mg/dl (65-105)
[2024-09-25 20:25] LABS: Glucose Point of Care 166 mg/dl (65-105)
[2024-09-26 00:08] VITALS: BP 144/68; PULSE 82; RESP 16; TEMP 36.6; O2SAT 98
[2024-09-26] MEDS: LEVOTHYROXINE SODIUM 50 MCG TABLET PO (05:32)
[2024-09-26 08:00] VITALS: BP 154/81; PULSE 104; RESP 16; TEMP 36.7; O2SAT 100
--- NOTE | 2024-09-26 09:23 | PM.DS ---
DS: Admitting Diagnosis Discharge Date 09/26/2024 Admitting Diagnosis DWAIN Hypoglycemia DS: Discharge Diagnosis Discharge Diagnosis (1) DWAIN (acute kidney injury): Code(s): N17.9 - Acute kidney failure, unspecified Status: Acute Assessment and Plan: patient creatinine is improving. Will continue current treatment monitor closely. (2) Hypoglycemia: Code(s): E16.2 - Hypoglycemia, unspecified Status: Acute Assessment and Plan: Sugar is better and stable (3) Weakness: Code(s): R53.1 - Weakness Status: Acute Assessment and Plan: start physical therapy. (4) Abnormal urinalysis: Code(s): R82.90 - Unspecified abnormal findings in urine Status: Acute Assessment and Plan: UTI, culture showing E coli. will continue with IV antibiotics (5) Dehydration: Code(s): E86.0 - Dehydration Status: Inactive Assessment and Plan: improving (6) Hyperkalemia: Code(s): E87.5 - Hyperkalemia Status: Acute Assessment and Plan: resolved Plan This is a very pleasant 83-year-old female with past medical history CKD stage 3, constipation due to opioid therapy, chronic pain, status post pain pump placement currently empty, right femoral fracture 08/2024 status post ORIF, hypertension, [id number] diabetes mellitus, paroxysmal atrial fibrillation, history of DVT, interval bowel syndrome, hypertension, GERD, CAD status post [place] status post stent, hyperlipidemia, anemia, anxiety and depression, bladder cancer status post cystectomy with ileal conduit/urostomy. This patient presents to [place] [facility] on 09/23/2024 by EMS reports of shakiness and weakness. She felt somewhat under the weather but did not have chest pain or shortness of breath. She also did not have the back pain/abdominal pain/money brown urine that she usually has with the infected urine. Reportedly her blood pressure was low per the home nurse. ER evaluation demonstrated an afebrile patient with normal sinus rhythm. Saturating well on room air. Blood pressure ranging from 100/58 to 120/63. WBC 11.7, hemoglobin 11, platelets 321, sodium 135, potassium 5.4, BUN 74, serum creatinine 1.89, glucose 49, urinalysis demonstrating 1+ leukocyte esterase, WBC 11-20, occasional squamous cells, 4+ bacteria. Head CT and chest x-ray unremarkable. She received 1 L lactated Ringer bolus, dextrose 25 g IV push, Tylenol 1000 mg, ceftriaxone 1 g IV x1. Hypoglycemia has resolved. Patient ate a turkey sandwich. Continue Accu-Cheks q.2 hours. 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 PTOT. Will hold her glipizide and metformin Trulicity and Farxiga. Whole D5 water and monitor Dehydration DWAIN creatinine of 1.8 on admission hold hydrochlorothiazide. Creatinine improving. Mild metabolic acidosis due to DWAIN Hyperkalemia due to DWAIN mild recheck and monitor. Resolved Right shoulder arthritis Tylenol p.r.n. lidocaine patch p.r.n. Hypo tension likely due to above it is improved with IV fluid. Blood pressure medication on hold UTI: Abnormal urinalysis appears to be contaminated. Patient has no evidence of infection including muddy brown urine and abdominal pain/low back pain which she usually gets with her UTIs. She has an elevated white count but no fever that could be reactive. Repeat WBC is normal. No other signs of infection. Follow-up urine culture. Received ceftriaxone in the ER. Procalcitonin normal. Will follow urine culture. Will continues ceftriaxone Mild chronic anemia DVT prophylaxis Eliquis Code status full code Fall precaution, PT OT, ambulate with assistance DS: Summary Hospital Course Reason for hospitalization: DWAIN Hypoglycemia Hospital Course: 83 years old female was admitted complains of having is weakness. Patient was found to sugar and acute kidney injury. Patient was given IV fluid sugar medication adjusted. Patient was also found to have urine tract infection. Urine culture shows E coli. Patient was treated with antibiotics. Patient did not have any complication during the stay in the hospital. Today patient is feeling better and was discharged home in stable condition. follow-up with primary care schedule. Status at Discharge Cognitive/behavioral status at discharge: Stable Time Spent with Patient Time attestation: Total time spent providing and/or coordinating discharge services: 30 minute Exam Narrative: GENERAL:[No acute distress, non-toxic appearing.] HEAD: Normal with no signs of head trauma. EYES: EOMI, conjunctiva normal ENT: Hearing grossly intact LUNGS: Nonlabored breathing. Clear to auscultation HEART: [Regular rate and rhythm] ABD: [Soft], [nontender to palpation] high ileostomy in-situ left quadrant with pain pump in situ EXT: Normal range of motion SKIN: Small decub ulcer that does not appear infected NEURO: [Alert and oriented x 3. No gross focal sensory or strength deficits other than some tremors.] PSYCH: Normal affect Const: General: comfortable and no acute distress Other: A&O x3 HENMT: Mouth: Yes moist mucous membranes Eyes: Pupils: Equal, round and reactive pupils present Neck: Neck: supple Resp: Effort & Inspection: normal respiratory effort Auscultation: clear to auscultation bilaterally Cardio: Rate: regular rate Rhythm: regular rhythm GI: Inspection: non-distended : Other: Urostomy bag with clear yellow urine. Neuro: Cranial nerves: Yes Equal, round and reactive pupils present Extrem: General: no edema DS: Data Data Completed and Pending Labs on day of discharge: Labs from last 24 hours 09/25/24 09/25/24 20:19 11:38 POC Capillary Glucose 166 H 154 H Preliminary micro results at discharge 09/23/24 17:04 Urine Culture - Preliminary Urostomy Escherichia Coli Enterococcus species 09/24/24 09:28 Blood Culture - Preliminary Blood 09/24/24 09:18 Blood Culture - Preliminary Blood Discharge Plan Discharge Attending physician on discharge: Matthew Malloy Discharging Clinician: Matthew Malloy Patient Disposition: Home Health Service Activity: as tolerated Diet: heart healthy and diabetic Discharge Instructions: Per Care Coordination: Patient to resume services with [facility] to include PT/OT eval and treat. [facility] will contact you prior to their first visit. [facility] can be contacted at [phone]. Nursing please fax discharge paperwork to [phone]. Patient Instructions: Antibiotic Form, Blood Thinners (DC), Blood Thinners (GEN) Patient Language: Canadian Stand Alone Forms: General Discharge Information Follow-up/Referrals: Tashi Christianson MD [Primary Care Provider] - Discharge Medications: New lidocaine [Lidoderm] 5 % Adhesive Patch,Medicated 1 patch transdermal DAILY Qty: 30 0RF amoxicillin-pot clavulanate 875-125 mg tablet 1 tablet PO Q12H Qty: 14 0RF Continued (DME) FreeStyle Marcos 2 Sensor Kit See Rx Instructions .Route Qty: 2 5RF Rx Instructions: test qam and prn (DME) FreeStyle Marcos 2 [place] Misc See Rx Instructions .Route Qty: 1 0RF Rx Instructions: test qam and fasting (DME) pen needle, diabetic [Novofine 32] 32 gauge x 1/4 needle See Rx Instructions .ROUTE .MEDSUPPLY Qty: 200 3RF Rx Instructions: inject twice daily omeprazole 40 mg capsule,delayed release(DR/EC) 40 mg PO DAILY 30 Days Qty: 90 3RF polyethylene glycol 3350 17 gram/dose powder 17 g PO DAILY PRN (Reason: constipation) dapagliflozin propanediol [Farxiga] 5 mg Tablet 10 mg PO DAILY Qty: 30 0RF potassium chloride 10 mEq Capsule, Extended Release 10 meq PO DAILY Qty: 30 0RF methocarbamol 500 mg tablet 500 mg PO TID PRN (Reason: muscle spasm) Qty: 30 0RF isosorbide mononitrate 60 mg tablet extended release 24 hr 60 mg PO DAILY Qty: 30 0RF nitroglycerin 0.4 mg Tablet, Sublingual 0.4 mg sublingual PRN PRN (Reason: Chest Pain) Qty: 30 0RF Rx Instructions: Place 1 tablet (0.4mg) under the tongue every 5 minutes for chest pain with a max dose of 3 doses. gabapentin 300 mg capsule 300 mg PO DAILY Qty: 30 0RF hydrochlorothiazide 25 mg tablet 25 mg PO DAILY Qty: 30 0RF metoprolol succinate 25 mg tablet extended release 24 hr 37.5 mg PO DAILY Qty: 30 0RF metformin 500 mg tablet extended release 24 hr 500 mg PO QACBREAK Qty: 30 0RF glipizide 5 mg tablet 5 mg PO DAILY Qty: 30 2RF Rx Instructions: TAKE 1 TABLET DAILY escitalopram oxalate 20 mg tablet 20 mg PO DAILY Qty: 30 0RF amlodipine-atorvastatin 10-40 mg tablet 1 tablet PO DAILY Qty: 30 0RF levothyroxine 50 mcg capsule 50 mcg PO DAILY Qty: 30 0RF Eliquis 5 mg tablet 5 mg PO BID Qty: 60 0RF acetaminophen 325 mg Tablet 650 mg PO Q6H PRN (Reason: pain) Qty: 60 0RF Trulicity 1.5 mg/0.5 mL pen injector 1.5 mg subcut WEEKLY Qty: 1 0RF Rx Instructions: on Fridays sennosides-docusate sodium [Senokot-S] 8.6-50 mg tablet 2 tablet PO BID PRN (Reason: constipation) Qty: 60 0RF Held morphine (PF) [Mitigo (PF)] 1 syr continuous intrathecal infusion DAILY Hold Instructions: Resume on 09/28/24. Home Medication 1 ea implant DIRECTED Qty: 0 0RF Hold Instructions: Resume on 09/27/24. oxycodone 5 mg Tablet 10 mg PO DAILY@0630 Qty: 12 0RF Hold Instructions: Resume on 09/27/24. No Action PreserVision AREDS-2 1 tab-cap PO DAILY Date of admission: 09/24/24 10:22 Primary Care Provider: Tashi Christianson Admitting Provider: Franck Alfredo Attending physician on admission: Franck Alfredo Condition: Stable
[2024-09-26] MEDS: ESCITALOPRAM OXALATE 10 MG TABLET 20 MG PO (09:31)
[2024-09-26] MEDS: PANTOPRAZOLE 40 MG TABLET PO (09:31)
[2024-09-26] MEDS: AMOXICILLIN/CLAVULANATE K 875-125 MG TAB 1 TABLET PO (09:31)
[2024-09-26] MEDS: GABAPENTIN 300 MG CAPSULE PO (09:31)
[2024-09-26] MEDS: LIDOCAINE 5% PATCH 1 PATCH TRANSDERM (09:32)
[2024-09-26] MEDS: APIXABAN 5 MG TABLET PO (09:32)
[2024-09-26] MEDS: METOPROLOL SUCCINATE EXT REL 12.5 MG TABCR 37.5 MG PO (09:32)
== END 2024-09-26 11:00 | disposition home health service (06) | DRG 683 ==
LOC: ANHED 18:09 → ANHIMU 19:27
PROVIDERS: General Practice; Internal Medicine; Physician Assistant; Admitting Provider Hospitalist; Emergency Provider Emergency Medicine; PCP Family Medicine; Visit Provider Internal Medicine
DX: N17.9 Acute kidney failure, unspecified (principal); N39.0 Urinary tract infection, site not specified; I25.10 Atherosclerotic heart disease of native coronary artery without angina pectoris; I48.0 Paroxysmal atrial fibrillation; I12.9 Hypertensive chronic kidney disease with stage 1 through stage 4 chronic kidney disease, or unspecified chronic kidney disease; N18.30 Chronic kidney disease, stage 3 unspecified; E11.649 Type 2 diabetes mellitus with hypoglycemia without coma; E11.22 Type 2 diabetes mellitus with diabetic chronic kidney disease; E87.5 Hyperkalemia; E03.9 Hypothyroidism, unspecified; E86.0 Dehydration; E78.5 Hyperlipidemia, unspecified; K21.9 Gastro-esophageal reflux disease without esophagitis; K58.9 Irritable bowel syndrome, unspecified; K57.30 Diverticulosis of large intestine without perforation or abscess without bleeding; K59.03 Drug induced constipation; M25.551 Pain in right hip; T40.2X5A Adverse effect of other opioids, initial encounter; G89.29 Other chronic pain; H81.09 Meniere's disease, unspecified ear; H35.30 Unspecified macular degeneration; F32.A Depression, unspecified; F41.9 Anxiety disorder, unspecified; Z20.822 Contact with and (suspected) exposure to COVID-19; Z96.89 Presence of other specified functional implants; S72.91XD Unspecified fracture of right femur, subsequent encounter for closed fracture with routine healing; Z86.73 Personal history of transient ischemic attack (TIA), and cerebral infarction without residual deficits; Z86.718 Personal history of other venous thrombosis and embolism; Z85.51 Personal history of malignant neoplasm of bladder; Z95.5 Presence of coronary angioplasty implant and graft; Z86.0100 Personal history of colon polyps, unspecified; Z79.01 Long term (current) use of anticoagulants; Z87.891 Personal history of nicotine dependence; Z93.6 Other artificial openings of urinary tract status
CPT/HCPCS: 36415; 70450; 71046; 80048; 80053; 81001; 82948; 83735; 84145; 84484; 85025; 85610; 85730; 87040; 87086; 87181; 87186; 87637; 93005; 96361; 96365; 96375; 96376; 97110; 97116; 97161; 97165; 99212; 99285; A9270; G0378; G0463; J0696; J7070; J7120

== ENCOUNTER 2024-10-09 14:05 | Outpatient (CLI) | payer MEDICARE, OTHER, SELFPAY ==
[2024-10-09 15:03] LABS: Alanine Aminotransferase 12 U/L (6-35); Albumin Level 3.7 g/dL (3.5-5.1); Alkaline Phosphatase 112 U/L (38-126); Anion Gap 13 mmol/L (4-12); Aspartate Amino Transferase 20 U/L (14-36); Bilirubin,Total 0.5 mg/dL (0.2-1.3); Blood Urea Nitrogen 23 mg/dL (7-17); Calcium 9.7 mg/dL (8.4-10.2); Carbon Dioxide 18 mmol/L (22-30); Chloride 108 mmol/L (98-107); Estimated Glomerular Filt Rate > 60; Glucose 155 mg/dL (65-110); Potassium 4.5 mmol/L (3.4-5.0); Sodium 139 mmol/L (137-145)
== END 2024-10-09 14:06 | disposition home or self-care (01) ==
PROVIDERS: PCP Family Medicine; Visit Provider Family Medicine
DX: N17.9 Acute kidney failure, unspecified (principal)
CPT/HCPCS: 36415; 80053

== ENCOUNTER 2024-11-16 09:26 | Outpatient (RCR) | payer MEDICARE, OTHER, SELFPAY ==
[2024-11-16 10:18] VITALS: BMI 24.3
--- NOTE | 2024-12-14 10:01 | PCWOUND ---
WOCN NOTE Patient did not show up for her appointment today. Per last visit at the wound center, Patient does have home health services for her wound to her coccyx. Patient was told she could cancel appointment, if wound was improving.
== END 2025-02-01 08:52 | disposition home or self-care (01) ==
LOC: ANHWOC 09:26
PROVIDERS: PCP Family Medicine; Visit Provider Family Medicine
DX: Z48.00 Encounter for change or removal of nonsurgical wound dressing (principal); L89.153 Pressure ulcer of sacral region, stage 3
CPT/HCPCS: 99214; A9270; G0463

== ENCOUNTER 2025-03-25 18:38 | Inpatient (IN) | payer MEDICARE, OTHER, SELFPAY ==
--- NOTE | ~2025-03-25 | XR_ITS ---
Portable chest x-ray Comparison: 03/25/2025 Clinical History: Hypoxia Findings: There is discoid airspace opacity the right lung base. Left lung clear. Cardiomediastinal silhouette is stable. Bones and soft tissues are unremarkable. Impression: Probable discoid right basilar atelectasis. Pneumonia probably less likely. Correlate clinically. Fol low-up exam advised. Reviewed, dictated and finalized at location . Impression: Probable discoid right basilar atelectasis. Pneumonia probably less likely. Cor relate clinically. Follow-up exam advised.
--- NOTE | ~2025-03-25 | CT_ITS ---
EXAMINATION: CT pelvis wo con DATE: 03/25/2025 20:42 INDICATION: Evaluate pelvic fractures TECHNIQUE: Computed tomography (CT) of the pelvis was performed without intravenous contrast. Automat ed exposure control and iterative reconstruction technique were employed. The dose-length product was 329.17 mGy-cm. COMPARISON: A lytic right hip and right femoral x-rays, same date; CT abdomen pelvis 06/13/2022 FINDINGS: Drug pump over the left lower quadrant. Large anterior hernia mesh. Uncomplicated appearing right lower quadrant bowel anastomosis. Diverticulosis without evidence diverticulitis. Right lower quadrant and Josiah's pouch. The Godinez's pouch is slightly more dilated in this examination. Righ t lower quadrant ostomy. The left kidney is not visualized and is either absent or out of the field-o f-view. Atherosclerotic calcifications. Absent uterus. Right sacral alar fracture, with minimal displacement and no definite neural foraminal involvement. N ondisplaced fractures of the bilateral superior and inferior pubic rami. Partially visualized right f emoral fixation hardware. IMPRESSION: Minimally displaced right sacral alar fracture. Nondisplaced fractures of the bilateral obturator rin gs. Mild dilation of the Godinez's pouch in the right lower quadrant, may represent active filling. Devel oping obstruction is not excluded. Reviewed, dictated and finalized at location K. IMPRESSION: Minimally displaced right sacral alar fracture. Nondisplaced fractures of the b ilateral obturator rings. Mild dilation of the Godinez's pouch in the right lower quadrant, may represent active filling. Developing obstruction is not excluded.
--- NOTE | ~2025-03-25 | XR_ITS ---
EXAM: XR hip RT 2V w AP pelvis, XR femur RT min 2V DATE: 03/25/2025 19:36 HISTORY: fall, r hip pain, hx replacement . COMPARISON: None available. FINDINGS: Potentially abandoned drug pump over the left abdomen. Osteopenia. Severe lumbar degenerat robles disc disease and scoliosis. Scattered vascular calcifications. Vascular clips in the right lower quadrant and along the iliac chains. Soft tissue anchors from large hernia mesh. Soft tissue anchors in the right greater tuberosity. Extensive hardware fixation of the left femur. Degenerative changes in the right knee with chondrocalcinosis. Old right intertrochanteric fracture. Acute moderately disp laced right superior pubic ramus fracture, likely extending to the pubic bone. Mildly displaced right inferior pubic ramus fracture. Acute mildly displaced left pubic bone fracture. IMPRESSION: Acute right obturator ring fractures. Acute left pubic bone fracture. No acute osseous fi nding or hardware related complication detected in the right femur. Reviewed, dictated and finalized at location K. IMPRESSION: Acute right obturator ring fractures. Acute left pubic bone fractur e. No acute osseous finding or hardware related complication detected in the [facility] femur.
--- NOTE | ~2025-03-25 | CT_ITS ---
History: Fall PROCEDURE: CT head without contrast. COMPARISON: 09/23/2024 TECHNIQUE: Axial imaging of the head performed from the skull base to the vertex without IV contrast. Sagittal a nd coronal reformations obtained. DLP: 681 mGy-cm FINDINGS: The ventricles are enlarged. The dilatation of the ventricles is proportional to the degree of sulcal prominence, not uncommon in the senescent brain. Decreased attenuation is identified within the periventricular white matter, likely secondary to micr ovascular ischemic disease, in a patient of this age. There is no mass, mass effect or midline shift. There is no abnormal extra-axial fluid collection or intracranial hemorrhage. Visualized paranasal sinuses are clear. The mastoid air cells are well aerated. No acute displaced fractures within the overlying cranium. Impression: No acute intracranial hemorrhage or suspicious mass effect. Reviewed, dictated and finalized at location A. Impression: No acute intracranial hemorrhage or suspicious mass effect.
--- NOTE | ~2025-03-25 | XR_ITS ---
HISTORY: fall, right arm pain COMPARISON: None TECHNIQUE: Multiple views of the right humerus were performed FINDINGS: No acute or subacute fracture. Alignment is maintained. Soft tissues are unremarkable without radiopaque foreign body or significant calcification. Diffuse bony demineralization IMPRESSION: Significant demineralization, without acute fracture or dislocation. Reviewed, dictated and finalized at location A. IMPRESSION: Significant demineralization, without acute fracture or dislocation .
--- NOTE | ~2025-03-25 | XR_ITS ---
EXAMINATION: XR chest 1V Exam Date/Time: 03/25/2025 19:25 CDT HISTORY: POSSIBLE RIGHT HIP FX Comparison: 09/23/2024. RESULT: Lines, tubes, and devices: None. Lungs and pleura: Clear. Cardiomediastinal silhouette: Stable. Other: No acute osseous or upper abdominal finding. IMPRESSION: No acute cardiopulmonary process. Reviewed, dictated and finalized at location K.
--- NOTE | ~2025-03-25 | XR_ITS ---
EXAM: XR wrist RT min 3V DATE: 03/25/2025 19:36 HISTORY: fall, wrist pain . COMPARISON: None available. FINDINGS: Osteopenia. No fracture. The scapholunate interval measures slightly greater than 3 mm. No lytic or blastic lesion. Moderate arthritic changes with chondrocalcinosis and degenerative appearin g loose bodies in the anterior joint space. No erosion or periosteal change. Soft tissues within norm al limits. IMPRESSION: Scapholunate widening as can be seen with scapholunate dissociation. No acute fracture de tected in the right wrist. Reviewed, dictated and finalized at location K. IMPRESSION: Scapholunate widening as can be seen with scapholunate dissociation . No acute fracture detected in the right wrist.
--- NOTE | ~2025-03-25 | CT_ITS ---
EXAMINATION: CT cervical spine wo con DATE: 03/25/2025 19:13 INDICATION: fall on thinners TECHNIQUE: Computed tomography (CT) of the cervical spine was performed using flank intravenous contr ast. Automated exposure control and iterative reconstruction technique were employed. The dose-length product was 183.40 mGy-cm. COMPARISON: 06/02/2024. FINDINGS: Vertebral Body Alignment: Minimal multilevel stable degenerative listheses. Craniocervical and atlantoaxial alignment: Moderate degenerative change. Alignment intact. Osseous structures/fracture: No evidence of a lytic or blastic process in the visualized spine. No e vidence of acute fracture. Bilateral C4-5 facet fusion. Unfused posterior C1 arch. Cervical soft tissues: The paraspinal soft tissues planes are maintained. 2.2 cm left thyroid nodule. Biapical pleural scarring. Degenerative changes: Degenerative changes, without severe neural foraminal or central canal narrowin g. IMPRESSION: No acute fracture or traumatic malalignment in the cervical spine. 2.2 cm left thyroid nodule, consider outpatient thyroid ultrasound for further evaluation, depending on the patient's clinical condition and wishes. Reviewed, dictated and finalized at location K.
[2025-03-25 18:39] VITALS: BP 143/66; PULSE 82; RESP 15; TEMP 36.9; O2SAT 96
--- NOTE | 2025-03-25 18:54 | ECG_ITS ---
Test Date: 2025-03-25 19:59:43 Measurements Intervals [place] Rate: 84 P: 66 VA: 168 QRS: 17 QRSD: 113 T: 81 QT: 381 QTc: 452 Interpretive Statements SINUS RHYTHM INTRAVENTRICULAR CONDUCTION DELAY MINIMAL Q WAVES- HIGH LATERAL LEADS BASELINE ARTIFACT- I, II, III, AVR, AVL, AVF, V1-V6 BORDERLINE ECG Compared to ECG 09/23/2024 13:31:18 NO SIGNIFICANT CHANGE Electronically Signed On 03-26-2025 06:32:40 CDT by Alex Singh D.O.
--- NOTE | 2025-03-25 18:57 | ED.FALL ---
HPI - Fall General Chief Complaint: Fall Stated Complaint: GLF, RIGHT SHOULDER & HIP PAIN. Time Seen by Provider: 03/25/25 18:41 History of Present Illness HPI Narrative: This is an 84-year-old female who with history of CAD status post stents x2, diabetes, CKD, chronic pain status post pain pump placement who presents to the ED for a fall. Patient states that she was working in her garden when had a walker slipped off a small retaining wall falling onto her right side. She denies hitting her head. She does report right wrist pain, right arm pain, right hip pain, and right thigh pain. Denies loc Related Data Home Medications ?Medication ?Instructions ?Recorded ?Confirmed ?Last Taken ?Type PreserVision AREDS-2 1 tab-cap PO DAILY 08/16/19 11/16/24 09/22/24 History morphine (PF) 1 syr continuous intrathecal 08/27/24 11/16/24 09/23/24 History infusion DAILY polyethylene glycol 3350 17 17 g PO DAILY PRN constipation 08/27/24 11/16/24 Unknown History gram/dose oral powder Allergies Allergy/AdvReac Type Severity Reaction Status Date / Time dimenhydrinate Allergy Severe THROAT Verified 03/25/25 18:55 SWELLING iodine Allergy Intermediate Rash Verified 03/25/25 18:55 Contrast Media Allergy Intermediate RASH Uncoded 03/25/25 18:55 Review of Systems Review of Systems: Gen.: Denies fevers or chills Eyes: Denies eye pain or visual change ENT: Denies congestion Respiratory: Denies shortness of breath or cough CV: Denies chest pain or palpitations GI: Denies abdominal pain nausea, emesis or diarrhea denies burning, urgency, frequency or hematuria Musculoskeletal: Right arm, wrist, hip, thigh pain. Neuro: Denies numbness, tingling, weakness or focal weakness Skin: Skin tears to right arm Except as documented, all other systems reviewed and negative PMFSH Past Medical History Medical History Constipation due to opioid therapy Hypothyroidism Chronic anticoagulation Type 2 diabetes mellitus Chronic pain Chronic kidney disease, stage 3 Irritable bowel syndrome Transient ischemic attack Hypertension Deep venous thrombosis Gastroesophageal reflux disease Coronary artery disease Paroxysmal atrial fibrillation Blind Macular degeneration Chronic right hip pain History of blood transfusion Hepatitis A Anemia Skin cancer Anxiety Depression Arthritis Bladder cancer Bowel obstruction History of rectal polyps Diverticulitis Hyperlipidemia Menieres disease Seasonal allergies Surgical History Surgical History Status post insertion of intrathecal pump chronic morphine sulfate 170.1 mcg daily Greater trochanteric bursitis of right hip surgical re-debridement January 2020 History of coronary artery stent placement History of foot surgery Left History of hip surgery Right hip abductor repair History of coronary artery stent placement H/O local excision of skin lesion History of brain surgery History of back surgery History of ileal conduit History of hysterectomy History of bladder surgery History of appendectomy History of hernia repair History of angioplasty History of cardiac catheterization History of tonsillectomy History of cataract surgery Family History Family History Mother Diabetes mellitus Family history of coronary artery disease Hypertension Myocardial infarction Sibling Family history of malignant neoplasm of bone Diabetes mellitus Family history of malignant neoplasm Family history of Alzheimer's disease Family history of coronary artery disease Carcinoma of colon Hypertension Father Alcoholic cirrhosis of liver Social History Social History Social History: Surrogate medical decision maker: Samir Luz, spouse. Code status: Smoking packs per day: 1 Smoking cigarettes per day: 20.0 Years smoked: 20 Smoking pack-years: 20.00 Smoking status: Former smoker Tobacco type: cigarettes Second hand tobacco smoke exposure: No Smoking end date: 05/12/00 Alcohol intake: current Drinks per week: 0 Alcohol use details: rarely Substance use: former Substance use type: marijuana Other substance usage details: Morphine pain pump Last use: 08/27/2024 Do You Feel Safe in your Home?: Yes Lack of Transportation: No Lack of Food: Never True Current Housing: I Have Housing Concerned About Future Housing: No Difficulty Paying Gas/Electric Bills: No Difficulty Paying for Meds: No Currently Unemployed: No Education: High School Diploma/GED Difficulty w/ Childcare or Family Care: No Living arrangements: with family Additional living arrangements comments: Occupation/Education: retired Gender identity (if verbalized by the patient): Female Sexual Orientation (if Verbalized by the Patient): Straight or Heterosexual Spiritual care concerns: No Agree to blood products: Yes Exam Narrative: APPEARANCE: No acute distress, nontoxic, resting in bed EYES: EOMI HEENT: Normocephalic, atraumatic, OMM RESPIRATORY: No respiratory distress Clear to auscultation bilaterally with no rhonchi wheezing or rales. CARDIOVASCULAR: Regular rate and rhythm without murmurs rubs or gallops. ABDOMINAL: Soft, nontender, nondistended, no rebound or guarding MUSCULOSKELETAl: Tenderness palpation to the mid right humerus. Tenderness to palpation over the dorsum of the distal wrist. Neurovascularly intact distally. Tenderness palpation over the right greater trochanter. Leg is not internally rotated or shortened. NEURO: Awake and alert. Following commands, speech normal, no focal deficits SKIN:: Scattered skin tears to the right upper extremity. PSYCHIATRIC: Normal affect/mood, Course Vital Signs Vital signs: Vital Signs Temperature 98.4 F 03/25/25 18:39 Pulse Rate 82 03/25/25 18:39 Respiratory Rate 15 03/25/25 18:39 Blood Pressure 143/66 H 03/25/25 18:39 Pulse Oximetry 96 03/25/25 18:39 Oxygen Delivery Room Air 03/25/25 18:39 Temperature 98.4 F 03/25/25 18:39 Pulse Rate 89 03/25/25 19:57 Respiratory Rate 18 03/25/25 19:57 Blood Pressure 162/78 H 03/25/25 19:57 Pulse Oximetry 98 03/25/25 19:57 Oxygen Delivery Room Air 03/25/25 18:39 MDM - Fall MDM Narrative Medical decision making narrative: 84 yo female presents for a fall with right wrist pain and right hip pain. She had scattered skin tears to the RUE. TTP over the right greater trochanter. TTP over the right dorsal wrist. CT head and c spine negative for acute process. XR wrist showed a scapholunate dissociation. XR pelvis showed right superior and inferior rami fractures as well as a left pubic fracture. Spoke with Dr. Latif, orthopedic surgery, recommends CT pelvis to further characterize fracture, no operative plan at this time. CT did show and additional r sacral alar fracture. Mild leukocytosis. UA showed possible UTI although patient asymptomatic, it would be more better at this time to treat for UTI as she will require romero placement for immobility. Case was discussed with hospitalist who will admit the patient. Differential Diagnosis Differential diagnosis: Likely fracture of wrist and other (hip fracture, cerebral hemorrhage, cervical fracture, wrist sprain, humerus fx) Lab Data Attestation: I reviewed the patient's lab results. 03/25/25 20:22 03/25/25 20:23 Labs: Lab Results 03/25/25 03/25/25 Range/Units 20:22 20:23 WBC 13.7 H (4.5-10.0) K/mm3 RBC 4.51 (4.2-5.4) M/mm3 Hgb 12.6 (12.0-15.0) g/dL Hct 38.7 (37.0-47.0) % MCV 85.8 (80-100) fl MCH 27.9 (26-34) pg MCHC 32.6 (32-36) g/dl RDW 14.6 H (11.5-14.5) % Plt Count 263 (150-375) k/mm3 MPV 9.3 (7.4-10.4) fl Immature Gran % (Auto) 1.2 H (0-0.5) % Neut % (Auto) 82.2 H (45.5-73.1) % Lymph % (Auto) 9.7 L (18.3-44.2) % [place] % (Auto) 5.0 (2.6-8.5) % Eos % (Auto) 1.5 (0-4.4) % Baso % (Auto) 0.4 (0.2-1.2) % Lymph # (Auto) 1.32 (0.9-3.2) K/mm3 [place] # (Auto) 0.7 H (0.1-0.6) K/mm3 Eos # (Auto) 0.2 (0-0.3) K/mm3 Baso # (Auto) 0.1 (0.0-0.1) K/mm3 Abs Immat Gran (auto) 0.17 H (0.00-0.031) K/mm3 Absolute Neuts (auto) 11.2 H (1.3-6.7) K/mm3 Absolute Nucleated RBC 0.000 (0.0-0.012) K/mm3 Nucleated RBC % 0.0 (0.0-0.2) % Sodium 140 (137-145) mmol/L Potassium 3.2 L (3.4-5.0) mmol/L Chloride 107 (98-107) mmol/L Carbon Dioxide 20 L (22-30) mmol/L Anion Gap 13 H (4-12) mmol/L BUN 30 H (7-17) mg/dL Creatinine 1.40 H (0.7-1.0) mg/dL Estim Creat Clear Calc 27 ml/min Estimated GFR 36 L (59 - ) Glucose 137 H (65-110) mg/dL Calcium 9.6 (8.4-10.2) mg/dL Total Bilirubin 0.6 (0.2-1.3) mg/dL AST 36 (14-36) U/L ALT 18 (6-35) U/L Alkaline Phosphatase 111 (38-126) U/L Total Protein 8.0 (6.3-8.2) g/dL Albumin 4.3 (3.5-5.1) g/dL Urine Color Yellow (Yellow) Urine Appearance Clear (Clear) Urine pH 6.5 (5.0-9.0) Ur Specific [place] 1.010 (1.001-1.035) Urine Protein Trace (Negative) mg/dL Urine Glucose (UA) Negative (Negative) mg/dL Urine Ketones Negative (Negative) mg/dL Ur Blood (Man) Negative (Negative) Urine Nitrate Positive H (Negative) Urine Bilirubin Negative (Negative) Urine Urobilinogen 0.2 (<2.0) mg/dL Leukocyte Esterase Rfl Trace H (Negative) [place]/UL Urine RBC 0-2 (0-2) /hpf Urine WBC 0-5 (0-3) /hpf Ur Squamous Epith Cells None seen (Few) /hpf Urine Bacteria 4+ H /hpf Urine Casts 0-2 Imaging Data Radiologist's impression: Impressions Head CT 03/25/25 19:19 Impression: No acute intracranial hemorrhage or suspicious mass effect. Cervical Spine CT 03/25/25 19:38 IMPRESSION: No acute fracture or traumatic malalignment in the cervical spine. 2.2 cm left thyroid nodule, consider outpatient thyroid ultrasound for further evaluation, depending on the patient's clinical condition and wishes. Humerus X-Ray 03/25/25 19:42 IMPRESSION: Significant demineralization, without acute fracture or dislocation. Femur X-Ray 03/25/25 19:47 IMPRESSION: Acute right obturator ring fractures. Acute left pubic bone fracture. No acute osseous finding or hardware related complication detected in the right femur. Hip/Pelvis X-Ray 03/25/25 19:47 IMPRESSION: Acute right obturator ring fractures. Acute left pubic bone fracture. No acute osseous finding or hardware related complication detected in the right femur. Chest X-Ray 03/25/25 20:02 IMPRESSION: No acute cardiopulmonary process. Wrist X-Ray 03/25/25 20:05 IMPRESSION: Scapholunate widening as can be seen with scapholunate dissociation. No acute fracture detected in the right wrist. ECG Data EKG #1: Attestation: I personally reviewed and interpreted this ECG as follows: ECG completion date: 03/25/25 ECG completion time: 19:59 Prior ECG tracings: not available for review Interpretation: NSR rate of 84, nl axis, nl intervals, no acute ST or T wave changes Discharge Plan Discharge Clinical Impression: Closed pelvic fracture, Scapholunate dissociation of right wrist, Acute UTI, Acute hypokalemia, Fall Patient Disposition: Still a Patient Condition: Stable Patient Language: Frisian Prescriptions: No Action amlodipine-atorvastatin 10-40 mg tablet 1 tablet PO DAILY Qty: 90 3RF isosorbide mononitrate 60 mg tablet extended release 24 hr 60 mg PO DAILY Qty: 90 3RF gabapentin 300 mg capsule 300 mg PO DAILY Qty: 90 3RF (DME) FreeStyle Marcos 2 Sensor Kit See Rx Instructions .Route Qty: 2 5RF Rx Instructions: test qam and prn (DME) FreeStyle Marcos 2 [place] Misc See Rx Instructions .Route Qty: 1 0RF Rx Instructions: test qam and fasting ondansetron HCl 4 mg tablet 4 mg PO Q8H PRN (Reason: nausea and vomiting) Qty: 21 0RF PreserVision AREDS-2 1 tab-cap PO DAILY lidocaine [Lidoderm] 5 % Adhesive Patch,Medicated 1 patch transdermal DAILY Qty: 30 0RF acetaminophen 325 mg Tablet 650 mg PO Q6H PRN (Reason: pain) Qty: 60 0RF sennosides-docusate sodium [Senokot-S] 8.6-50 mg tablet 2 tablet PO BID PRN (Reason: constipation) Qty: 60 0RF Eliquis 5 mg tablet 5 mg PO BID Qty: 60 0RF (DME) pen needle, diabetic [Novofine 32] 32 gauge x 1/4 needle See Rx Instructions .ROUTE .MEDSUPPLY Qty: 200 3RF Rx Instructions: inject twice daily omeprazole 40 mg capsule,delayed release(DR/EC) 40 mg PO DAILY 30 Days Qty: 90 3RF escitalopram oxalate 20 mg tablet 20 mg PO DAILY Qty: 90 1RF Trulicity 1.5 mg/0.5 mL pen injector 1.5 mg subcut WEEKLY Qty: 2 2RF Rx Instructions: on Fridays morphine (PF) [Mitigo (PF)] 1 syr continuous intrathecal infusion DAILY polyethylene glycol 3350 17 gram/dose powder 17 g PO DAILY PRN (Reason: constipation) dapagliflozin propanediol [Farxiga] 5 mg Tablet 10 mg PO DAILY Qty: 30 0RF Home Medication 1 ea implant DIRECTED Qty: 0 0RF oxycodone 5 mg Tablet 10 mg PO DAILY@0630 Qty: 12 0RF potassium chloride 10 mEq Capsule, Extended Release 10 meq PO DAILY Qty: 30 0RF methocarbamol 500 mg tablet 500 mg PO TID PRN (Reason: muscle spasm) Qty: 30 0RF nitroglycerin 0.4 mg Tablet, Sublingual 0.4 mg sublingual PRN PRN (Reason: Chest Pain) Qty: 30 0RF Rx Instructions: Place 1 tablet (0.4mg) under the tongue every 5 minutes for chest pain with a max dose of 3 doses. hydrochlorothiazide 25 mg tablet 25 mg PO DAILY Qty: 30 0RF metoprolol succinate 25 mg tablet extended release 24 hr 37.5 mg PO DAILY Qty: 30 0RF metformin 500 mg tablet extended release 24 hr 500 mg PO QACBREAK Qty: 30 0RF glipizide 5 mg tablet 5 mg PO DAILY Qty: 30 2RF Rx Instructions: TAKE 1 TABLET DAILY levothyroxine 50 mcg capsule 50 mcg PO DAILY Qty: 30 0RF Follow-up/Referrals: Tashi Christianson MD [Primary Care Provider] -
--- OUTSIDE RECORDS SUMMARY | 2025-03-25 19:33 | XMS_ITS | Clinical Summary ---
Author Organization [facility] al Address [address] [place] [address] Care Team Providers Care Bag Grader Name Role Phone Tashi Christianson MD Primary Care Provider Pedro Roy NP Unavailable Joshua Ramirez MD Unavailable Allergies Active Allergy Reactions Criticality Noted Date [...] 24 hr tabletIndications: Coronary artery disease involving [place] coronary artery of [place] heart with angina pectoris Take 1 tablet (60 mg total) by mouth daily 90 tablet 3 07/21/20 21 Active Jardiance 25 mg tablet TAKE 1 TABLET DAILY 30 tablet 05/04/20 22 Active Trulicity 1.5 mg/0.5 mL pen injector Inject 0.5 mL (1.5 mg total) under the skin every 7 days Saturday10/08/19 23 Active potassium chloride ER 8 mEq CR [...] a day as needed for constipation 08/27/19 Active Additional Information Patient not taking.Reported on 02/18/2025 oxyCODONE (ROXICODONE) 5 mg immediate release tabletIndications: Pain Take 1 tablet (5 mg total) by mouth every 4 (four) hours as needed for pain 12 tablet 08/27/19 Active polyethylene glycol (MIRALAX) 17 gram/dose bulk powderIndications: constipation Take 17 g by mouth daily as needed (for constipation) 08/27/19 Active lidocaine (LIDODERM) 5 % 09/29/19 Active ondansetron (ZOFRAN) 4 mg tablet 10/06/19 Active Eliquis 5 mg tablet TAKE 1 TABLET TWICE A DAY 180 tablet 3 02/05/20 Active Active Problems Problem Noted Date Diagnosed Date Myofascial pain 11/12/2024 Fall 08/26/2024 Assessment & Plan (08/26/2024 10:19 AM CLOAK ROOM ATTENDANT): Fell getting out of bed going to walker ABLA (acute blood loss anemia) 08/26/2024 Assessment & Plan (08/27/2024 11:52 AM CLOAK ROOM ATTENDANT): 08/23 On admission hgb 12.9 Pt went [...] 08/26/2024 Assessment & Plan (08/27/2024 11:53 AM CLOAK ROOM ATTENDANT): On admission Cr 1.11 08/26 1.5 One liter of fluid Now mid day 1.23 Monitor BM daily if recurrent elevation transfuse one unit of RBC. -08/27 stable for discharge, encourage PO intake. Cervical radiculopathy 08/25/2024 Assessment & Plan (08/27/2024 11:50 AM CLOAK ROOM ATTENDANT): 08/25 c/o right neck pain post surgery with pain in right index/thumb/palm. -heat/cold compress -range motion/ PT/OT -gabapentin increase to Q8 hours -08/27 pain under control,will have pain regimens on discharge. Right hand pain 08/25/2024 Assessment & Plan (08/27/2024 11:52 AM CLOAK ROOM ATTENDANT): 08/25 Right hand and wrist xray rule [...] 08/24/2024 Assessment & Plan (08/27/2024 11:48 AM CLOAK ROOM ATTENDANT): Chronic Glipizide 5 mg, Metformin 500 mg [...] 08/24/2024 Assessment & Plan (08/27/2024 11:48 AM CLOAK ROOM ATTENDANT): Chronic Atorvastatin 40 mg daily Follow up with previously established provider for ongoing evaluation. Encounter for medication management 08/24/2024 Discharge planning issues 08/24/2024 Assessment & Plan (08/27/2024 11:49 AM CLOAK ROOM ATTENDANT): 08/25 hgb monitoring post surgical procedure, need to work with PT/OT and pain control. ADD 08/27 08/27 Patient is medically stable for discharge, SW/CM updated. Discharge SNF today Chronic pain 08/24/2024 Assessment & Plan (08/27/2024 11:49 AM CLOAK ROOM ATTENDANT): Followed by pain managed Morphine intrathecal management monthly Follow up with previously established provider for ongoing evaluation. Depression 08/24/2024 Assessment & Plan (08/27/2024 11:49 AM CLOAK ROOM ATTENDANT): Lexapro 20 mg daily, continue on discharge Follow up with previously established provider for ongoing evaluation. Periprosthetic fracture of shaft of femur 2024 Closed fracture of shaft of right femur 08/23/19 25 Assessment & Plan (08/27/2024 11:48 AM CLOAK ROOM ATTENDANT): Orthopedic consult Right isaac implant mid shaft femur fracture 08/24 OR SUSI, long CMN R isaac-implant midshaft femur fx. Pain control TTWB ASA 81 mg BID x 14 days recommendation from orthopedic at discharge Wound Care: Surgical dressings will be changed on POD3. Okay for nursing to reinforce dressings PRN if they become soiled or have shadowing before that time Sutures/[place]: to be removed 3 weeks after surgical date (Sep 14). Please include on discharge orders if patient is going to a facility. If the patient is still in the hospital at that time they will be removed by the orthopedic team. Follow-Up: Patient has follow up scheduled on 10/07/[address] Arora located at [facility] Aspirin 81mg BID x 14 days, Bone health follow up. 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 Has had ileal conduit since then. -Doing well overall. No worrisome signs. Encounter for colonoscopy due to history of colo sourav polyp 02/16/2020 Overview (02/16/2020): Added automatically from request for surgery [id number] Closed fracture of phalanx of foot 07/28/2019 Paroxysmal atrial fibrillation 03/31/2019 Assessment & Plan (08/27/2024 11:47 AM CLOAK ROOM ATTENDANT): Hold home Eliquis Toprol XL 37.5mg daily ---> IR while admitted bid 25 and 12.5 THQ2SE8-OMS: 5 -will hold Eliquis and start ASA on discharge, continue home metoprolol Follow up with your PCP for medication evaluation and ongoing evaluation. Chronic anticoagulation 03/31/2019 PSVT (paroxysmal supraventricular tachycardia) ( [facility]) 03/09/2019 Near syncope 02/16/2019 Palpitations 02/16/2019 TIA (transient ischemic attack) 02/16/2019 Esophageal ulcer 08/14/2018 Assessment & Plan (08/27/2024 11:47 AM CLOAK ROOM ATTENDANT): Chronic Omeprazole 40 mg daily --->pantoprazole while admitted. Follow up with previously established provider for ongoing evaluation. Myocardial bridge 05/01/2018 Abnormal stress test 04/11/2018 Acquired hypothyroidism 04/11/2018 Assessment & Plan (08/27/2024 11:47 AM CLOAK ROOM ATTENDANT): Levothyroxine 50 mcg daily Follow up with previously established provider for ongoing evaluation. Hypertension associated with diabetes 04/11/2018 Assessment & Plan (08/27/2024 11:19 AM CLOAK ROOM ATTENDANT): Chronic Losartan 25 mg daily HCTZ 25mg daily hold, Irbesartan 75mg, Amlodipine/Atorvastatin 10/40mg daily -08/27 stable for DC Follow up with previously established provider for ongoing evaluation. Mixed diabetic hyperlipidemi a associated with type 2 diabetes mellitus ([facility]) 04/11/2018 SHEETS (dyspnea on exertion) 04/11/2018 Coronary artery disease invo lving [place] coronary artery of [place] heart without angina pectoris 04/11/2018 S/P coronary artery stent placement 04/11/2018 Benign colon polyp 11/18/2017 BPPV (benign paroxysmal posi tional vertigo), unspecified laterality 02/01/2017 Abnormal gait 02/01/2017 Active cochleovestibular Meniere's disease 02/01 Horizontal vertigo, unspecified laterality 12/19 Peripheral vertigo 11/19/2016 History of ileal conduit 10/23/2016 Assessment & Plan (10/04/2020 3:42 PM CLOAK ROOM ATTENDANT): -Stoma pink and moist -Urine clear, yellow and draining well -Skin around ostomy bag is clean and dry Fecal incontinence 09/19/2011 Encounters Date Type Department Care Team Description 02/18/2025 9:37 AM CDT - 02/18/2025 11:59 PM CDT Hospital Encounter [facility] [address] [place] [address] Pedro Roy NP Trochanteric bursitis of right hip (Primary Dx); Radiculopathy, lumbosacral region; Cervical radiculopathy Discharge Disposition: Discharge to home or self care 02/17/2025 9:40 AM CDT Office Visit [facility] Orthopaedic Surgery [address] [address] [place] [address] [place] [address] Elena Arora MD Closed fracture of shaft of right femur, unspecified fracture morphology, initial encounter (HCC) (Primary Dx) 02/17/2025 9:12 AM CDT - 02/17/2025 11:59 PM CDT Hospital Encounter [facility] [address] [place] [id number] Elena Arora MD Closed fracture of shaft of right femur, unspecified fracture morphology, initial encounter (HCC) Discharge Disposition: Discharge to home or self care 01/12/2025 2:00 PM CDT Office Visit [facility] [address] [facility] [address] [place] [address] Jarod Engle MD Coronary artery disease involving [place] coronary artery of [place] heart without angina pectoris (Primary Dx); Hypertension associated with diabetes (HCC); Mixed diabetic hyperlipidemia associated with type 2 diabetes mellitus (CMS/HCC) (HCC); Paroxysmal atrial fibrillation (HCC); Chronic anticoagulation from Last 3 Months Immunizations Immunization Administration Dates Next Due Influenza, Quadrivalent, Rec [...] ribs a nd pneumothorax Hx Other Medical 1956 Hepatitis Personal history of other en docrine, [...] 2 diabetes mellitus wit h diabetic polyneuropathy (HCC) Diabetic peripheral neuropat hy - (Added by [...] (Added by TW Conv) Hypertension Atrial fibrillation (HCC) Acid indigestion Diverticulitis Cataracts, bilateral Arthritis Coronary artery disease 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 Denies 08/23/2024 Comments No Sex and Gender Information Value Date Recorded Sex Assigned at Not on file Legal Sex Female 11:33 PM CLOAK ROOM ATTENDANT Gender Identity Not on file Sexual Orientation [...] Sign Reading Time Taken Comments Blood Pressure 132/79 02/18/2025 9:55 AM CDT Pulse 75 02/18/2025 9:55 AM CDT Temperature 37 C (98.6 F) 08/27/2024 4:22 PM CLOAK ROOM ATTENDANT Respiratory Rate 16 02/18/2025 9:55 AM CDT Oxygen Saturation 100% 02/18/2025 9:55 AM CDT Inhaled Oxygen Concentration - - Weight 68 kg (150 lb) 01/12/2025 2:06 PM CDT Height 165.1 cm (5' 5) 01/12/2025 2:06 PM CDT Body Mass Index 24.96 01/12/2025 2:06 PM CDT Plan of Treatment Health Maintenance Due Date Last Done Comments Albumin Creatinine Ratio, Urine 1940 DTaP/Tdap/Td Vaccine (1 - Tdap) 10/23/1950 Hepatitis B Screening 10/23/1957 Zoster Vaccine (1 of 2) 10/23/1989 Pneumococcal vaccine 65+ (2 of 2 - PPSV23, PCV20, or PCV21) 04/18/2021 02/21/2021 Hemoglobin A1C 11/20/2021 05/22/2021, 02/17/2021 Dilated Eye Exam 12/10/2021 12/10/2020 Foot Exam 02/21/2022 02/21/2021, 02/21/2021 Well Visit 65+ 02/21/2022 02/21/2021 Osteoporosis Screening-Bone Density Scan 06/02/2023 06/02/2021 Influenza Vaccine (#1) 2025 05/17/2021, 2019 Depression Screening 08/23/2025 08/23/2024, 08/23/2024, 02/21/2021, Additional history exists Lipid Panel 08/23/2025 08/23/2024, 04/13, 02/17/2021, Additional history exists eGFR 08/26/2025 08/26/2024, 08/12, 08/26/2024, Additional history exists Fall Risk Assessment 02/18/2026 02/18/2025, 02/21/2021, 01/24/2021 Medical Devices Implanted Type Area Insights Strategist Device Identifier Shelf Expiration Date Model / Serial / Lot Patel [employer] Nephew/Richco/Ort ho Cable Bone Cerclage With Crimp Evos Stainless Steel [id number] - [id number] Implanted:Qty: 1 on 08/24/2024 at [facility] Cable Right: Femur [employer]hew/Richco/ Ortho [id number] / / [employer]hew/Richco/Ort ho Cable Bone Cerclage With Crimp Evos Stainless Steel [id number] - [id number] Implanted:Qty: 1 on 08/24/2024 by Elena Arora MD at [facility] Cable Right: Femur [employer]Richco/ Ortho [id number] / / [employer]hew/Richco/Ort ho Nail Intramedullary Right 125 Degree Femoral Intertan [id number] Titanium [id number] - [id number] Implanted:Qty: 1 on 08/24/2024 by Elena Arora MD at [facility] Nail Right: Femur [employer]hew/Richco/ Ortho [id number] 10/08/2030 [id number] / / [id number] 14h R Pp Distal Femur Plate Implanted:Qty: 1 on 08/24/2024 by Elena Arora MD at [facility] Plate Right: Femur Patel [employer] Nephew [id number] / / Description:Inactive. Misc c ode used [employer]hew/Richco/Ort ho Intertan 4.5mm 90mm 85mm Lag Compression Integrate Interlock [id number] - [id number] Implanted:Qty: 1 on 08/24/2024 by Elena Arora MD at [facility] Screw Right: Femur [employer]Richco/ Ortho [id number] / / [employer]hew/Richco/Ort ho Screw Bone Locking Femoral Self Tapping Full Thread Low Profile Trigen Stainless Steel 5.0x32.5mm [id number] - [id number] Implanted:Qty: 1 on 08/24/2024 by Elena Arora MD at [facility] Screw Right: Femur [employer]hew[employer]Richco/ Ortho [id number] / / Pat[employer] Nephew/Richco/Ort ho 5mm 35mm Low Profile Internal Hex Femur Screw Bone Trigen [id number] - [id number] Implanted:Qty: 1 on 08/24/2024 by Elena Arora MD at [facility] Screw Right: Femur [employer]hew[employer]Richco/ Ortho [id number] / / Pat[employer] Nephew/Richco/Ort ho Screw Bone Cortical St Evos 4.5x34mm [id number] - [id number] Implanted:Qty: 2 on 08/24/2024 by Eelna Arora MD at [facility] Screw Right: Femur [employer]hew/Richco/ Ortho [id number] / / Pat[employer] Nephew/Richco/Ort ho Screw Bone Cortical St Evos 4.5x30mm [id number] - [id number] Implanted:Qty: 2 on 08/24/2024 by Elena Arora MD at [facility] Screw Right: Femur [employer]hew/Richco/ Ortho [id number] / / Pat[employer] Nephew/Richco/Ort ho Screw Bone Cortical St Evos 4.5x36mm [id number] - [id number] Implanted:Qty: 1 on 08/24/2024 by Elena Arora MD at [facility] Screw Right: Femur Pat[employer]hew/Richco/ Ortho [id number] / / Patel [employer] Nephew/Richco/Ort ho Evos 3.5mm 38mm Self Tap Cortex Screw Bone Sterile [id number] - [id number] Implanted:Qty: 1 on 08/24/2024 by Elena Aroar MD at [facility] Screw Right: Femur Pat[employer]hew/Richco/ Ortho [id number] / / Patel [employer] Nephew/Richco/Ort ho Evos 4.5mm X 64mm Locking Screw Self-Tapping [id number] - [id number] Implanted:Qty: 2 on 08/24/2024 by Elena Arora MD at [facility] Screw Right: Femur Patel [employer] Nephew/Richco/ Ortho [id number] / / Patel [employer] Nephew/Richco/Ort ho Screw Locking Evos 4.5mm X 60mm Self-Tapping [id number] - [id number] Implanted:Qty: 1 on 08/24/2024 by Elena Arora MD at [facility] Screw Right: Femur Patel [employer] Nephew[employer]Richco/ Ortho [id number] / / Cypher Cardiac Stent Heart Medtronic Inc Catheter Intrathecal Spinal Segment 2 Piece Silicone Ascenda [id number] 8780 - [id number] Implanted:Qty: 1 on 04/02/2024 by Joshua Ramirez MD at [facility] Left: Back Medtronic Inc 03/10/2026 8780 / / [id number] Medtronic Usa Inc X Pump Infusion Programmable Ulp Ami 20ml Volume 8667-20 - [id number] - [id number] Implanted:Qty: 1 on 04/02/2024 by Joshua Ramirez MD at [facility] Left: Abdomen Medtronic Usa Inc X 08/08/2025 8667-20 / [id number] / Medtronic Inc Tyrx 3.35x3in Large Envelope Absorbable Polyarylate Minocycline [id number] - [id number] Implanted:Qty: 1 on 04/02/2024 by Joshua Ramirez MD at [facility] Left: Abdomen Medtronic Inc 11/14/2024 [id number] / / [id number] Medtronic Inc Kit Intrathecal Catheter Revision Segment [place] Removal Ascenda 8785 - [id number] Implanted:Qty: 1 on 04/02/2024 by Joshua Ramirez MD at [facility] Left: Abdomen Medtronic Inc 02/19/2026 8785 / / [id number] Patel [employer] Nephew/Richco/Ort ho Screw Bone Cortical St Evos 4.5x28mm [id number] - [id number] Implanted:Qty: 1 on 08/24/2024 by Elena Arora MD at [facility] Right: Femur Pat[employer]hew[employer]Richco/ Ortho [id number] / / Pat[employer] Nephew/Richco/Ort ho Cable Bone Cerclage With Crimp Evos Stainless Steel [id number] - [id number] Implanted:Qty: 1 on 08/24/2024 at [facility] Right: Femur [employer]hew[employer]Richco/ Ortho [id number] / / 3.5 Non Locking Screw Implanted:Qty: 2 on 08/24/2024 by Elena Arora MD at [facility] Right: Femur Patel [employer] Nephew [id number] / / Description:Inactive. Misc c ode used 4.5 Locking Screw Implanted:Qty: 2 on 08/24/2024 by Elena Arora MD at [facility] Right: Femur Patel [employer] Nephew [id number] / / Description:Inactive. Misc c ode used Explanted Type Area Insights Strategist Device Identifier Shelf Expiration Date Model / Serial / Lot Patel [employer] Nephew/Richco/Orth o Trigen Intertan 11.5mm 38cm Antegrade Intertrochanter Right 125d [id number] - [id number] Explanted:Qty: 1 on 08/24/2024 by Sharan De La Vega MD at [facility] Nail Right: Femur Pat[employer]hew/Richco/O rtho [id number] 01/08/2028 [id number] / / [id number] Patel [employer] Nephew/Richco/Orth o Screw Bone Cortical St Evos 4.5x34mm [id number] - [id number] Explanted:Qty: 1 on 08/24/2024 at [facility] Screw Right: Femur Patel [employer] Nephew/Richco/O rtho [id number] / / Patel & Nephew/Richco/Orth o Screw Bone Cortical St Evos 4.5x74mm [id number] - [id number] Explanted:Qty: 1 on 08/24/2024 by Elena Arora MD at [facility] Right: Femur Patel [employer] Nephew/Richco/O rtho [id number] / / Procedures Procedure Name Priority Date/Time Associated Diagnosis Comments POCT GLUCOSE DEVICE Routine 02/18/2025 10:39 AM CDT XR FEMUR RIGHT 2 OR MORE VIEWS Schedule Routine, Read Routine (OP Routine) 02/17/2025 9:24 AM CDT Closed fracture of shaft of right femur, unspecified fracture morphology, initial encounter (HCC) EGFR Routine 08/26/2024 12:32 AM CLOAK ROOM ATTENDANT LIPID PANEL STAT 08/23/2024 4:49 PM CLOAK ROOM ATTENDANT DEXA AXIAL SKELETON BONE DENSITY 1 OR MORE SITES Schedule Routine, Read Routine (OP Routine) 06/02/2021 3:15 PM CDT Postmenopause HEMOGLOBIN A1C Routine 05/22/2021 9:55 AM CDT Uncontrolled type 2 diabetes mellitus with hyperglycemia (HCC) DIABETIC EYE EXAM Routine 12/10/2020 from Last 3 Months or Most Recently Relevant to Health Maintenance Results * POCT glucose (02/18/2025 10:39 AM CDT) Glucose, POC 122 70 - 199 mg/dL POC Performer [id number] [facility] Blood 02/18/2025 10:3 9 AM CDT 02/18/2025 10:39 AM CDT us Pedro Roy AEGIS OPERATIONS SPECIALIST LAB POCT ORDERABLES - DIXIE CE Final Result [facility] [address] Department [place] [address] * XR Femur Right 2 or More Views (02/17/2025 9:24 AM CDT) Anatomical Region Laterality Modality Lower Extremities, Thigh, Femur Right Computed Radiography 02/17/2025 11:1 6 AM CDT Impressions 02/17/2025 11:41 AM CDT 1. Healing reduced and nailed right intertrochanteric femur fracture. 2. Healing reduced and internally fixated proximal right femur periprosthetic fracture. Dictated by: Jaskaran Brandon MD The radiology attending physician has personally reviewed this study, and had reviewed and/or edited this written report and agrees with it. Electronically signed by: Álvaro Banuelos M.D. Narrative 02/17/2025 11:41 AM CDT EXAMINATION: XR FEMUR RIGHT 2 OR MORE VIEWS HISTORY: Right femur fractures. COMPARISON: Right femur radiographs 11/18/2024. FINDINGS: 4 radiographs of the right femur are submitted for interpretation. Healing reduced right intertrochanteric fracture with displaced lesser trochanter, managed with intramedullary nailing. Healing reduced proximal right femur periprosthetic fracture internally fixated with a lateral plate and screw construct. The hardware is intact without periprosthetic lucency. No new periprosthetic fracture. Medial predominant right knee osteoarthritis. Right knee chondrocalcinosis. Hernia mesh repair noted over the pelvis. Procedure Note Álvaro Banuelos MD - 02/17/2025 EXAMINATION: XR FEMUR RIGHT 2 OR MORE VIEWS HISTORY: Right femur fractures. COMPARISON: Right femur radiographs 11/18/2024. FINDINGS: 4 radiographs of the right femur are submitted for interpretation. Healing reduced right intertrochanteric fracture with displaced lesser trochanter, managed with intramedullary nailing. Healing reduced proximal right femur periprosthetic fracture internally fixated with a lateral plate and screw construct. The hardware is intact without periprosthetic lucency. No new periprosthetic fracture. Medial predominant right knee osteoarthritis. Right knee chondrocalcinosis. Hernia mesh repair noted over the pelvis. IMPRESSION: 1. Healing reduced and nailed right intertrochanteric femur fracture. 2. Healing reduced and internally fixated proximal right femur periprosthetic fracture. Dictated by: Jaskaran Brandon MD The radiology attending physician has personally reviewed this study, and had reviewed and/or edited this written report and agrees with it. Electronically signed by: Álvaro Banuelos M.D. Elena Arora MD IMG XR PROCEDURES Final Re sult * (ABNORMAL) eGFR (08/26/2024 12:32 AM CLOAK ROOM ATTENDANT) eGFR 34(L) >=60 mL/min/1. 73 m2 Comment: [...] reviewed 2021. Blood 08/26/2024 12:3 2 AM CLOAK ROOM ATTENDANT 08/26/2024 12:47 AM CLOAK ROOM ATTENDANT us Radha Kirk NP LAB BLOOD ORDERABLES Final Result [facility] Department [place] [address] * Lipid panel (08/23/2024 4:49 PM CLOAK ROOM ATTENDANT) Cholesterol 146 30 - 199 mg/dL Comment: [...] revised on 2018. HDL 45 >=40 mg/dL [facility] Comment: Interpretive Data Ages [...] on 2018. LDL, calculated 84 <=129 mg/dL [facility] Comment: Interpretive Data Ages < or [...] NCEP Expert Panel. Circulation 2004;110:227 3. Romario Jauregui et al. TIMOTHY Cardiol. 2020 December 10;5(5):540-548. doi: 10.1001/jamacardio.2020.0013 Current Interpretive Data was last revised on 2024. Non-HDL Cholesterol 101 mg/dL [facility] Comment: Interpretive Data Ages < or [...] last revised on 2018. Chol/HDL ratio 3 [facility] Blood 08/23/2024 4:49 PM CLOAK ROOM ATTENDANT 08/23/2024 4:55 PM CLOAK ROOM ATTENDANT Narrative [facility] - 08/24/2024 8:25 AM CLOAK ROOM ATTENDANT Reflex us Tashi Parisi MD LAB BLOOD ORDERABLES Anna mari Result [facility] Department [place] [address] * Dexa Axial Skeleton Bone Density 1 or 2 Site (06/02/2021 3:15 PM CDT) Anatomical Region Laterality Modality Body N/A Mammography 06/05/2021 7:05 AM CDT Narrative 06/05/2021 7:06 AM CDT EXAM DESCRIPTION: DEXA AXIAL SKELETON BONE DENSITY 1 OR MORE SITES REASON FOR STUDY: 80 y/o year old F with given history of screening. Insights Strategist/Model: [employer] A (S/N [id number]) CLINICAL INFORMATION: Current height: 65 inches Maximum [...] Toi Jackson M.D. MF: JOSE Report ID: [id number] Reading Location: [id number] Procedure Note Toi Jackson MD - 06/05/2021 EXAM DESCRIPTION: DEXA AXIAL SKELETON BONE DENSITY 1 OR MORE SITES REASON FOR STUDY: 80 y/o year old F with given history ofscreening. Insights Strategist/Model: [employer] A (S/N [id number]) CLINICAL INFORMATION: Current height: 65 inches Maximum [...] Toi Jackson M.D. MF: JOSE Report ID: [id number] Reading Location: [place] [address] us Edouard COTE IMG DXA PROCEDURES Final [...] and children were not included. (Diabetes Care 31:[id number], 2008). The eAG is not equivalent to a fasting glucose. Blood 05/22/2021 9:55 AM CDT 05/22/2021 5:19 PM CDT us Edouard COTE LAB BLOOD ORDERABLES Final Result [facility] [address] [facility] Department [place] [address] * (ABNORMAL) Diabetic Eye Exam (12/10/2020) us Historical Provider MD HEALTH MAINTENANCE Final Result from Last 3 Months or Most Recently Relevant to Health Maintenance Insurance [facility] MEDICARE MEDICARE [facility] MEDICARE FOR LIFE Advance Directives For more information, please contact: [phone] * Full Code (Latest Code Status on File) Date Activated Date Inactivated Comments 08/23/2024 10:14 PM 08/28/2024 12:08 AM * Full Code Date Activated Date Inactivated Comments 03/07/2020 10:09 AM 03/07/2020 4:03 PM Care Teams Bag Grader Relationship Specialty Start Date End Date Tashi Christianson MD [address] [place] [address] PCP - General Family Medicine 05/09/22 [place] [address] [address] [place] [address] Nurse Practitioner Nurse Practitioner 04/30/24 [place] [id number] [facility] [address] [place] [address] Consulting Physician Pain Management 10/13/24
--- OUTSIDE RECORDS SUMMARY | 2025-03-25 19:33 | XMS_ITS | Encounter Summary ---
Author Organization [facility] Healthcare Address [address] [place] [address] Care Team Providers Care Store Team Leader Name Role Phone Tashi Christianson MD Primary Care Provider Joshua Huang MD Primary Care Provi guevara Tashi Christianson MD Primary Care Provider Pedro Roy NP Unavailable [phone] Joshua Ramirez MD Unavailable [phone] Encounter Details Date Type Department Care Team (Late st Contact Info) Description 01/28/2018 Orders Only [facility] [place] Management [address] [place] [id number] Scanning, Provider Social History Tobacco Use Types Packs/Day Years Used Date Smoking Tobacco: Former Cigarettes Q uit: 08/12/1988 Alcohol Use Standard Drinks/Week Comments Yes 0 (1 standard drink = 0.6 oz pur e alcohol) Comments Unknown Sex and Gender Information Value Date Recorded Sex Assigned at Not on file 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 Gender Identity Not on file Sexual Orientation Not on file documented as of this encounter Plan of Treatment Not on file documented as of this encounter Procedures Procedure Name Priority Date/Time Associated Diagnosis Comments SCAN - RADIOLOGY/IMAGING 01/28/2018 documented in this encounter Results * SCAN - RADIOLOGY/IMAGING (01/28/2018) Anatomical Region Laterality Modality Other us Provider Scanning Final Result documented in this encounter Visit Diagnoses Not on filedocumented in this encounter Additional Health Concerns Infection Onset Date Last Indicated Resolved Time MDR gram neg/ESBL Comment:Germ watcher auto flagging 03/10/2013 03/10/201304/02 1:30 PM CDT documented as of this encounter Care Teams Store Team Leader Relationship Specialty Start Date End Date Tashi Christianson MD [address] [place] [address] PCP - General 12/11/17 01/22/21 Joshua Huang MD [address] [place] [address] PCP - General Family Medicine 01/23/21 05/08/22 Tashi Christianson MD [address] [place] [address] PCP - General Family Medicine 05/09/22 [place] [address] [address] [place] [address] Nurse Practitioner Nurse Practitioner 04/30/24 [place] [address] [address] [place] [address] Consulting Physician Pain Management 10/13/24 documented as of this encounter
[2025-03-25 19:57] VITALS: BP 162/78; PULSE 89; RESP 18; O2SAT 98
[2025-03-25] MEDS: MORPHINE SULFATE (*CRX) 2 MG/ML INJ IV PUSH (20:01)
[2025-03-25] MEDS: HYDROmorphone HCL INJ (*CRX) 1 MG/ML SYR 0.5 MG IV PUSH ×2 (20:22→22:41)
[2025-03-25 20:33] LABS: Add Urine Microscopic? YES; Appearance Urine Clear (Clear); Glucose Urine UA Negative (Negative); Leukocyte Esterase Ur Trace LEU/UL (Negative); Nitrate Urine Positive (Negative); Non Pathogenic Casts 0-2; Specific Grav Ur 1.010 (1.001-1.035)
[2025-03-25 20:37] LABS: Hematocrit 38.7 % (37.0-47.0); Hemoglobin 12.6 g/dL (12.0-15.0); Immature Granulocyte Percent A 1.2 % (0-0.5); Lymphocytes Absolute Auto 1.32 K/mm3 (0.9-3.2); Mean Corpuscular HGB Conc 32.6 g/dl (32-36); Mean Corpuscular Hemoglobin 27.9 pg (26-34); Mean Corpuscular Volume 85.8 fl (80-100); Nucleated Red Blood Cells Absolute Auto 0.000 K/mm3 (0.0-0.012); Nucleated Red Blood Cells Perc 0.0 % (0.0-0.2); Platelet Count Result 263 k/mm3 (150-375); Red Blood Count 4.51 M/mm3 (4.2-5.4); White Blood Count 13.7 K/mm3 (4.5-10.0)
[2025-03-25 20:40] LABS: Alanine Aminotransferase 18 U/L (6-35); Albumin Level 4.3 g/dL (3.5-5.1); Alkaline Phosphatase 111 U/L (38-126); Anion Gap 13 mmol/L (4-12); Aspartate Amino Transferase 36 U/L (14-36); Bilirubin,Total 0.6 mg/dL (0.2-1.3); Blood Urea Nitrogen 30 mg/dL (7-17); Calcium 9.6 mg/dL (8.4-10.2); Carbon Dioxide 20 mmol/L (22-30); Chloride 107 mmol/L (98-107); Estimated CRCL calculation 27 ml/min; Estimated Glomerular Filt Rate 36; Glucose 137 mg/dL (65-110); Potassium 3.2 mmol/L (3.4-5.0); Sodium 140 mmol/L (137-145); Total Protein 8.0 g/dL (6.3-8.2)
[2025-03-25] MEDS: SODIUM CHLORIDE 0.9% IV 1,000 ML 999 ML IV CONT (22:07)
[2025-03-25] MEDS: cefTRIAXone 2 GM in SODIUM CHLORIDE 0.9% IV 100 ML 200 ML IVPB (22:09)
[2025-03-25] MEDS: TETANUS,DIPHTHERIA,AC PERTUSSIS ADULT (0.5 ML) BOOSTRIX IM (22:11)
[2025-03-25 22:18] VITALS: BP 139/78; PULSE 88; RESP 23; O2SAT 97
[2025-03-25 22:29] VITALS: BP 139/78; PULSE 88; RESP 23; O2SAT 97
[2025-03-25] MEDS: SODIUM CHLORIDE 0.9% IV 1,000 ML 125 ML IV CONT (22:45)
[2025-03-25] MEDS: KCL 20 MEQ/SW 100 ML 100 ML 50 MEQ IVPB (22:47)
[2025-03-25 22:51] VITALS: BMI 25.8
--- NOTE | 2025-03-25 22:54 | ADMGEN ---
This patient, Britney Escobar, was admitted to Medical Room 255-01. Patient/family oriented to hospital policies and general routines including ID bracelet, bed and alarms, visiting hours, pain management, procedures, bathroom and other care routines, personal items, smoking policy, room service/diet, and visiting hours. Information on how to activate the Rapid Response Team has been discussed. Patient/Family are encouraged to report perceived risks to care and to ask questions if they do not understand what they are told or what they should do.
[2025-03-25 22:59] VITALS: BP 161/63; PULSE 88; RESP 20; TEMP 37; O2SAT 91
[2025-03-25 23:43] VITALS: BP 129/57; PULSE 85; RESP 20; TEMP 36.8; O2SAT 92
[2025-03-26] VITALS (10 sets, daily range): BP systolic 119–149; BP diastolic 50–67; PULSE 72–85; RESP 14–16; TEMP 36.8–37.1; O2SAT 91–93
[2025-03-26] MEDS: HYDROmorphone HCL INJ (*CRX) 1 MG/ML SYR 0.5 MG IV PUSH ×4 (02:40→14:56)
--- NOTE | 2025-03-26 10:39 | PM.IMHP ---
H&P: HPI History of Present Illness Date/Time: 03/26/25 10:39 Chief Complaint: fall Narrative: 84-year-old female who with history of CAD status post stents x2, on eliquis, diabetes, CKD, chronic pain status post pain pump placement who admitted for a fall. Patient was working garden when had a walker slipped off a small retaining wall falling onto her right side. She denies hitting her head, no loc. She does report right wrist pain, right arm pain, right hip pain, and right thigh pain. IN ED: TTP over the right greater trochanter. TTP over the right dorsal wrist. CT head and c spine negative for acute process. XR wrist showed a scapholunate dissociation. XR pelvis showed right superior and inferior rami fractures as well as a left pubic fracture. ER spoke with Dr. Latif, orthopedic surgery, recommends CT pelvis to further characterize fracture, no operative plan at this time. CT did show and additional r sacral alar fracture. Mild leukocytosis. UA showed possible UTI although patient asymptomatic but since she would require romero placement for immobility, decision was made to treat uti. Review of Systems Review of Systems: All systems reviewed & are unremarkable except as noted in HPI and below PMFSH Past Medical History Medical History Constipation due to opioid therapy Hypothyroidism Chronic anticoagulation Type 2 diabetes mellitus Chronic pain Chronic kidney disease, stage 3 Irritable bowel syndrome Transient ischemic attack Hypertension Deep venous thrombosis Gastroesophageal reflux disease Coronary artery disease Paroxysmal atrial fibrillation Blind Macular degeneration Chronic right hip pain History of blood transfusion Hepatitis A Anemia Skin cancer Anxiety Depression Arthritis Bladder cancer Bowel obstruction History of rectal polyps Diverticulitis Hyperlipidemia Menieres disease Seasonal allergies Surgical History Surgical History Status post insertion of intrathecal pump chronic morphine sulfate 170.1 mcg daily Greater trochanteric bursitis of right hip surgical re-debridement January 2020 History of coronary artery stent placement History of foot surgery Left History of hip surgery Right hip abductor repair History of coronary artery stent placement H/O local excision of skin lesion History of brain surgery History of back surgery History of ileal conduit History of hysterectomy History of bladder surgery History of appendectomy History of hernia repair History of angioplasty History of cardiac catheterization History of tonsillectomy History of cataract surgery Family History Family History Mother Diabetes mellitus Family history of coronary artery disease Hypertension Myocardial infarction Sibling Family history of malignant neoplasm of bone Diabetes mellitus Family history of malignant neoplasm Family history of Alzheimer's disease Family history of coronary artery disease Carcinoma of colon Hypertension Father Alcoholic cirrhosis of liver Social History Social History Social History: Surrogate medical decision maker: Samir Escobar, spouse. Code status: Smoking packs per day: 1 Smoking cigarettes per day: 20.0 Years smoked: 20 Smoking pack-years: 20.00 Smoking status: Current every day smoker Tobacco type: cigarettes Second hand tobacco smoke exposure: No Smoking end date: 05/12/00 Alcohol intake: current Drinks per week: 0 Alcohol use details: rarely Substance use: never Substance use type: does not use Other substance usage details: Morphine pain pump Last use: 08/27/2024 Do You Feel Safe in your Home?: Yes Lack of Transportation: No Lack of Food: Never True Current Housing: I Have Housing Concerned About Future Housing: No Difficulty Paying Gas/Electric Bills: No Difficulty Paying for Meds: No Currently Unemployed: No Education: High School Diploma/GED Difficulty w/ Childcare or Family Care: No Living arrangements: with family Additional living arrangements comments: Occupation/Education: retired Gender identity (if verbalized by the patient): Female Sexual Orientation (if Verbalized by the Patient): Straight or Heterosexual Spiritual care concerns: No Agree to blood products: Yes Meds Home Medications and Allergies Home Medications ?Medication ?Instructions ?Recorded ?Confirmed ?Type PreserVision AREDS-2 1 tab-cap PO DAILY 08/16/19 03/25/25 History pen needle, diabetic 32 gauge x #200 ea 07/04/20 03/25/25 Rx 1/4 (Novofine 32) omeprazole 40 mg capsule,delayed 40 mg PO DAILY 1 month #90 caps 06/24/24 03/25/25 Rx release morphine (PF) 1 syr continuous intrathecal 08/27/24 03/25/25 History infusion DAILY polyethylene glycol 3350 17 17 g PO DAILY PRN constipation 08/27/24 03/25/25 History gram/dose oral powder Home Medication 1 ea implant DIRECTED ##0 09/11/24 03/25/25 Rx dapagliflozin propanediol 5 mg 10 mg (2 x 5 mg) PO DAILY #30 tabs 09/11/24 03/25/25 Rx tablet (Farxiga) glipizide 5 mg tablet 5 mg PO DAILY #30 tabs 09/11/24 03/25/25 Rx hydrochlorothiazide 25 mg tablet 25 mg PO DAILY #30 tabs 09/11/24 03/25/25 Rx levothyroxine 50 mcg capsule 50 mcg PO DAILY #30 caps 09/11/24 03/25/25 Rx metformin 500 mg tablet,extended 500 mg PO QACBREAK #30 tabs 09/11/24 03/25/25 Rx release 24 hr methocarbamol 500 mg tablet 500 mg PO TID PRN muscle spasm #30 09/11/24 03/25/25 Rx tabs metoprolol succinate 25 mg 37.5 mg (1.5 x 25 mg) PO DAILY #30 09/11/24 03/25/25 Rx tablet,extended release 24 hr tabs nitroglycerin 0.4 mg sublingual 0.4 mg sublingual PRN PRN Chest 09/11/24 03/25/25 Rx tablet Pain #30 tabs flash glucose scanning reader #1 ea 09/14/24 03/25/25 Rx (FreeStyle [place]) flash glucose sensor (FreeStyle #2 ea 09/14/24 03/25/25 Rx [place] 2 Sensor kit) acetaminophen 325 mg tablet 650 mg (2 x 325 mg) PO Q6H PRN 09/26/24 03/25/25 Rx pain #60 tabs apixaban 5 mg tablet (Eliquis) 5 mg PO BID #60 tabs 09/26/24 03/25/25 Rx sennosides 8.6 mg-docusate sodium 2 tablet PO BID PRN constipation 09/26/24 03/25/25 Rx 50 mg tablet (Senokot-S) #60 tabs ondansetron HCl 4 mg tablet 4 mg PO Q8H PRN nausea and 10/06/24 03/25/25 Rx vomiting #21 tabs amlodipine 10 mg-atorvastatin 40 1 tablet PO DAILY #90 tabs 11/05/24 03/25/25 Rx mg tablet isosorbide mononitrate 60 mg 60 mg PO DAILY #90 tabs 11/05/24 03/25/25 Rx tablet,extended release 24 hr escitalopram oxalate 20 mg tablet 20 mg PO DAILY #90 tabs 11/27/24 03/25/25 Rx dulaglutide 1.5 mg/0.5 mL 1.5 mg (0.5 mL) subcut WEEKLY #2 mL 03/08/25 03/25/25 Rx subcutaneous pen injector (Trulicity) gabapentin 300 mg capsule 300 mg PO HS 03/25/25 03/25/25 History lidocaine 5 % topical patch 1 patch transdermal PRN 03/25/25 03/25/25 History (Lidoderm) Allergies Allergy/AdvReac Type Severity Reaction Status Date / Time dimenhydrinate Allergy Severe THROAT Verified 03/25/25 18:55 SWELLING iodine Allergy Intermediate Rash Verified 03/25/25 18:55 Contrast Media Allergy Intermediate RASH Uncoded 03/25/25 18:55 Vital Signs Vital Signs - 24 hr 03/25/25 18:39 03/25/25 19:57 03/25/25 22:18 Temperature 98.4 F Pulse Rate 82 89 88 Respiratory Rate 15 18 23 H Blood Pressure 143/66 H 162/78 H 139/78 Pulse Oximetry 96 98 97 Oxygen Delivery Room Air 03/25/25 22:29 03/25/25 22:59 03/25/25 23:43 Temperature 98.6 F 98.3 F Pulse Rate 88 88 85 Respiratory Rate 23 H 20 20 Blood Pressure 139/78 161/63 H 129/57 L Pulse Oximetry 97 91 92 Oxygen Delivery 03/26/25 00:00 03/26/25 04:00 03/26/25 04:00 Temperature 98.4 F Pulse Rate 78 85 85 Respiratory Rate 16 Blood Pressure 149/67 H Pulse Oximetry 92 Oxygen Delivery 03/26/25 06:00 03/26/25 07:47 03/26/25 08:00 Temperature 98.4 F 98.3 F Pulse Rate 85 82 Respiratory Rate 16 16 Blood Pressure 149/67 H 132/56 L Pulse Oximetry 92 91 Oxygen Delivery Room Air 03/26/25 08:00 Temperature Pulse Rate 84 Respiratory Rate Blood Pressure Pulse Oximetry Oxygen Delivery Exam Narrative: pain pump to low left abd Const: General: comfortable Resp: Effort & Inspection: normal respiratory effort Cardio: Rate: regular rate Rhythm: regular rhythm GI: GI Palp: Yes Soft to palpation Auscultation: normal bowel sounds Skin: Other: scattered skin tears Extrem: Other: tender to palpation to the mid right humerus. Tenderness to palpation over the dorsum of the distal wrist. Neurovascularly intact distally. Tenderness palpation over the right greater trochanter. Leg is not internally rotated or shortened. Psych: Affect: normal affect H&P: Results Labs Labs: Short CBC 03/25/25 Range/Units 20:22 WBC 13.7 H (4.5-10.0) K/mm3 Hgb 12.6 (12.0-15.0) g/dL Hct 38.7 (37.0-47.0) % Plt Count 263 (150-375) k/mm3 BMP 03/25/25 20:23 Sodium 140 Potassium 3.2 L Chloride 107 Carbon Dioxide 20 L BUN 30 H Creatinine 1.40 H Glucose 137 H Calcium 9.6 Liver Function 03/25/25 Range/Units 20:23 Total Bilirubin 0.6 (0.2-1.3) mg/dL AST 36 (14-36) U/L ALT 18 (6-35) U/L Alkaline Phosphatase 111 (38-126) U/L Albumin 4.3 (3.5-5.1) g/dL Urine 03/25/25 Range/Units 20:22 Urine Color Yellow (Yellow) Urine Appearance Clear (Clear) Urine pH 6.5 (5.0-9.0) Ur Specific [place] 1.010 (1.001-1.035) Urine Protein Trace (Negative) mg/dL Urine Glucose (UA) Negative (Negative) mg/dL Assessment and Plan Assessment and plan (1) Depression: Code(s): F32.9 - Major depressive disorder, single episode, unspecified Status: Acute (2) Anxiety and depression: Code(s): F41.9 - Anxiety disorder, unspecified; F32.9 - Major depressive disorder, single episode, unspecified Status: Acute (3) Hypertension: Code(s): I10 - Essential (primary) hypertension Status: Chronic (4) Hypertensive heart disease without congestive heart failure: Code(s): I11.9 - Hypertensive heart disease without heart failure Status: Acute (5) Coronary artery disease involving [place] coronary artery of [place] heart: Code(s): I25.10 - Atherosclerotic heart disease of [place] coronary artery without angina pectoris Status: Acute (6) Atrial fibrillation: Code(s): I48.91 - Unspecified atrial fibrillation Status: Acute (7) Hyperlipidemia: Code(s): E78.5 - Hyperlipidemia, unspecified Status: Acute (8) Diabetes: Code(s): E11.9 - Type 2 diabetes mellitus without complications Status: Acute (9) Gastroesophageal reflux disease: Code(s): K21.9 - Gastro-esophageal reflux disease without esophagitis Status: Acute (10) Ground-level fall: Code(s): W18.30XA - Fall on same level, unspecified, initial encounter Status: Acute Plan 84 yo female presents for a fall with right wrist pain and right hip pain. Ortho was consulted. DR Dr. Latif, orthopedic surgery, recommended CT pelvis to further characterize fracture, no operative plan at this time. CT did show and additional r sacral alar fracture. TTP over the right greater trochanter. TTP over the right dorsal wrist. CT head and c spine negative. XR wrist showed a scapholunate dissociation. XR pelvis showed right superior and inferior rami fractures as well as a left pubic fracture. She was staretd on SS and lantus for diabetes (her home meds are held) she has a morphine pain pump that is functional. RN will be coming to check on it. careful with additional pain meds not to cause resp distress. PT/OT continue elquis neurovascular checks awaiting for ortho to see pt and an official recommendations -care coordination following for rehab placement home meds reviewed and retsrated as appropriate pt is full code Quality VTE Prophylaxis VTE prophylaxis: mechanical ordered and pharmacologic ordered (on eliquis but holding it for now )
[2025-03-26] MEDS: ESCITALOPRAM OXALATE 10 MG TABLET 20 MG PO (12:13)
[2025-03-26] MEDS: ATORVASTATIN 40 MG TABLET PO (12:14)
[2025-03-26] MEDS: ISOSORBIDE MONONITRATE 60 MG TAB.ER.24H PO (12:15)
[2025-03-26] MEDS: INSULIN ASPART (*BKC) 100 UNITS/ML SUB-Q (12:15)
[2025-03-26 12:29] LABS: Hemoglobin A1C 6.1 % (<5.7)
[2025-03-26] MEDS: HYDROcodone/acetaminophen (*CRX) 5-325 MG TABLET 1 TAB PO ×2 (13:29→18:14)
[2025-03-26] MEDS: PANTOPRAZOLE 40 MG TABLET PO (17:12)
--- NOTE | 2025-03-26 19:29 | P.CONOP_ITS ---
Assessment and Plan Assessment and plan (1) Acetabular fracture: Code(s): S32.409A - Unspecified fracture of unspecified acetabulum, initial encounter for closed fracture Status: Acute Assessment and Plan: 84-year-old female with Right Hip and Right Wrist Pain. She was working in her garden when had a walker slipped off a small retaining wall falling onto her right side. She denies hitting her head, no loc. She does report right wrist pain, right arm pain, right hip pain, and right thigh pain. Stable fracture, wbat. 05/2024 Right Hip IM Vipul fixation 09/05 Right Hip periprosthetic fracture ORIF at [facility] with isaac-articular distal femoral plate. Lives at home with her . 4 daughters and 1 recently son. Has vacation home, (where she sustained her fall) Plan Weight bearing as tolerated. Follow up with Dr Latif, 1 week after discharge. History of Present Illness HPI Consult date: 03/27/25 Consult reason: fracture (RT Pelvic fracture) Chief complaint: Pelvic fractures, RT scapholunate dissociation Narrative: 84-year-old female with Right Hip and Right Wrist Pain. She was working in her garden when had a walker slipped off a small retaining wall falling onto her right side. She denies hitting her head, no loc. She does report right wrist pain, right arm pain, right hip pain, and right thigh pain. FOR[facility]LY [facility], [facility]ER [facility] Past Medical History Medical History Constipation due to opioid therapy Hypothyroidism Chronic anticoagulation Type 2 diabetes mellitus Chronic pain Chronic kidney disease, stage 3 Irritable bowel syndrome Transient ischemic attack Hypertension Deep venous thrombosis Gastroesophageal reflux disease Coronary artery disease Paroxysmal atrial fibrillation Blind Macular degeneration Chronic right hip pain History of blood transfusion Hepatitis A Anemia Skin cancer Anxiety Depression Arthritis Bladder cancer Bowel obstruction History of rectal polyps Diverticulitis Hyperlipidemia Menieres disease Seasonal allergies Surgical History Surgical History Status post insertion of intrathecal pump chronic morphine sulfate 170.1 mcg daily Greater trochanteric bursitis of right hip surgical re-debridement January 2020 History of coronary artery stent placement History of foot surgery Left History of hip surgery Right hip abductor repair History of coronary artery stent placement H/O local excision of skin lesion History of brain surgery History of back surgery History of ileal conduit History of hysterectomy History of bladder surgery History of appendectomy History of hernia repair History of angioplasty History of cardiac catheterization History of tonsillectomy History of cataract surgery Family History Family History Mother Diabetes mellitus Family history of coronary artery disease Hypertension Myocardial infarction Sibling Family history of malignant neoplasm of bone Diabetes mellitus Family history of malignant neoplasm Family history of Alzheimer's disease Family history of coronary artery disease Carcinoma of colon Hypertension Father Alcoholic cirrhosis of liver Social History Social History Social History: Surrogate medical decision maker: Saimr Escobar, spouse. Code status: Smoking packs per day: 1 Smoking cigarettes per day: 20.0 Years smoked: 20 Smoking pack-years: 20.00 Smoking status: Current every day smoker Tobacco type: cigarettes Second hand tobacco smoke exposure: No Smoking end date: 05/12/00 Alcohol intake: current Drinks per week: 0 Alcohol use details: rarely Substance use: never Substance use type: does not use Other substance usage details: Morphine pain pump Last use: 08/27/2024 Do You Feel Safe in your Home?: Yes Lack of Transportation: No Lack of Food: Never True Current Housing: I Have Housing Concerned About Future Housing: No Difficulty Paying Gas/Electric Bills: No Difficulty Paying for Meds: No Currently Unemployed: No Education: High School Diploma/GED Difficulty w/ Childcare or Family Care: No Living arrangements: with family Additional living arrangements comments: Occupation/Education: retired Gender identity (if verbalized by the patient): Female Sexual Orientation (if Verbalized by the Patient): Straight or Heterosexual Spiritual care concerns: No Agree to blood products: Yes Meds Home Medications and Allergies Home Medications ?Medication ?Instructions ?Recorded ?Confirmed ?Type PreserVision AREDS-2 1 tab-cap PO DAILY 08/16/19 03/25/25 History pen needle, diabetic 32 gauge x #200 ea 07/04/20 03/25/25 Rx 1/4 (Novofine 32) omeprazole 40 mg capsule,delayed 40 mg PO DAILY 1 month #90 caps 06/24/24 03/25/25 Rx release morphine (PF) 1 syr continuous intrathecal 08/27/24 03/25/25 History infusion DAILY polyethylene glycol 3350 17 17 g PO DAILY PRN constipation 08/27/24 03/25/25 History gram/dose oral powder Home Medication 1 ea implant DIRECTED ##0 09/11/24 03/25/25 Rx dapagliflozin propanediol 5 mg 10 mg (2 x 5 mg) PO DAILY #30 tabs 09/11/24 03/25/25 Rx tablet (Farxiga) glipizide 5 mg tablet 5 mg PO DAILY #30 tabs 09/11/24 03/25/25 Rx hydrochlorothiazide 25 mg tablet 25 mg PO DAILY #30 tabs 09/11/24 03/25/25 Rx levothyroxine 50 mcg capsule 50 mcg PO DAILY #30 caps 09/11/24 03/25/25 Rx metformin 500 mg tablet,extended 500 mg PO QACBREAK #30 tabs 09/11/24 03/25/25 Rx release 24 hr methocarbamol 500 mg tablet 500 mg PO TID PRN muscle spasm #30 09/11/24 03/25/25 Rx tabs metoprolol succinate 25 mg 37.5 mg (1.5 x 25 mg) PO DAILY #30 09/11/24 03/25/25 Rx tablet,extended release 24 hr tabs nitroglycerin 0.4 mg sublingual 0.4 mg sublingual PRN PRN Chest 09/11/24 03/25/25 Rx tablet Pain #30 tabs flash glucose scanning reader #1 ea 09/14/24 03/25/25 Rx (FreeStyle Marcos 2 Standish) flash glucose sensor (FreeStyle #2 ea 09/14/24 03/25/25 Rx Marcos 2 Sensor kit) acetaminophen 325 mg tablet 650 mg (2 x 325 mg) PO Q6H PRN 09/26/24 03/25/25 Rx pain #60 tabs apixaban 5 mg tablet (Eliquis) 5 mg PO BID #60 tabs 09/26/24 03/25/25 Rx sennosides 8.6 mg-docusate sodium 2 tablet PO BID PRN constipation 09/26/24 03/25/25 Rx 50 mg tablet (Senokot-S) #60 tabs ondansetron HCl 4 mg tablet 4 mg PO Q8H PRN nausea and 10/06/24 03/25/25 Rx vomiting #21 tabs amlodipine 10 mg-atorvastatin 40 1 tablet PO DAILY #90 tabs 11/05/24 03/25/25 Rx mg tablet isosorbide mononitrate 60 mg 60 mg PO DAILY #90 tabs 11/05/24 03/25/25 Rx tablet,extended release 24 hr escitalopram oxalate 20 mg tablet 20 mg PO DAILY #90 tabs 11/27/24 03/25/25 Rx dulaglutide 1.5 mg/0.5 mL 1.5 mg (0.5 mL) subcut WEEKLY #2 mL 03/08/25 03/25/25 Rx subcutaneous pen injector (Trulicity) gabapentin 300 mg capsule 300 mg PO HS 03/25/25 03/25/25 History lidocaine 5 % topical patch 1 patch transdermal PRN 03/25/25 03/25/25 History (Lidoderm) Allergies Allergy/AdvReac Type Severity Reaction Status Date / Time dimenhydrinate Allergy Severe THROAT Verified 03/25/25 18:55 SWELLING iodine Allergy Intermediate Rash Verified 03/25/25 18:55 Contrast Media Allergy Intermediate RASH Uncoded 03/25/25 18:55 Vital Signs Vital Signs - 24 hr 03/25/25 19:57 03/25/25 22:18 03/25/25 22:29 Temperature Pulse Rate 89 88 88 Respiratory Rate 18 23 H 23 H Blood Pressure 162/78 H 139/78 139/78 Pulse Oximetry 98 97 97 Oxygen Delivery 03/25/25 22:59 03/25/25 23:43 03/26/25 00:00 Temperature 37.0 C 36.8 C Pulse Rate 88 85 78 Respiratory Rate 20 20 Blood Pressure 161/63 H 129/57 L Pulse Oximetry 91 92 Oxygen Delivery 03/26/25 04:00 03/26/25 04:00 03/26/25 06:00 Temperature 36.9 C 36.9 C Pulse Rate 85 85 85 Respiratory Rate 16 16 Blood Pressure 149/67 H 149/67 H Pulse Oximetry 92 92 Oxygen Delivery 03/26/25 07:47 03/26/25 08:00 03/26/25 08:00 Temperature 36.8 C Pulse Rate 82 84 Respiratory Rate 16 Blood Pressure 132/56 L Pulse Oximetry 91 Oxygen Delivery Room Air 03/26/25 12:00 03/26/25 13:07 03/26/25 15:00 Temperature Pulse Rate 72 73 Respiratory Rate 14 Blood Pressure 119/50 L Pulse Oximetry 93 Oxygen Delivery Room Air 03/26/25 15:24 03/26/25 16:00 Temperature Pulse Rate 78 Respiratory Rate Blood Pressure Pulse Oximetry Oxygen Delivery Room Air Exam 2 Narrative: Awake and alert, sitting in chair with Right Short Arm Splint. Right Hip with tenderness to palpation over the lateral aspect, with pain with passive range of motion localized to the groin area. Bilateral knees and ankles without swelling tenderness or deformity NVI to the lower extremities. Const: General: cooperative, healthy appearing, comfortable, no acute distress, well developed, alert and awake Nutritional Appearance: average body habitus Orientation/consciousness: patient oriented x3 Results Labs 03/25/25 20:22 03/25/25 20:23 Labs: Abnormal lab results 03/25/25 03/25/25 03/26/25 Range/Units 20:22 20:23 11:39 WBC 13.7 H (4.5-10.0) K/mm3 RDW 14.6 H (11.5-14.5) % Immature Gran % (Auto) 1.2 H (0-0.5) % Neut % (Auto) 82.2 H (45.5-73.1) % Lymph % (Auto) 9.7 L (18.3-44.2) % [place] # (Auto) 0.7 H (0.1-0.6) K/mm3 Abs Immat Gran (auto) 0.17 H (0.00-0.031) K/mm3 Absolute Neuts (auto) 11.2 H (1.3-6.7) K/mm3 Potassium 3.2 L (3.4-5.0) mmol/L Carbon Dioxide 20 L (22-30) mmol/L Anion Gap 13 H (4-12) mmol/L BUN 30 H (7-17) mg/dL Creatinine 1.40 H (0.7-1.0) mg/dL Estimated GFR 36 L (59 - ) Glucose 137 H (65-110) mg/dL POC Capillary Glucose (65-105) mg/dl Hemoglobin A1c 6.1 H (<5.7) % Urine Nitrate Positive H (Negative) Leukocyte Esterase Rfl Trace H (Negative) LORRAINE/UL Urine Bacteria 4+ H /hpf 03/26/25 Range/Units 12:00 WBC (4.5-10.0) K/mm3 RDW (11.5-14.5) % Immature Gran % (Auto) (0-0.5) % Neut % (Auto) (45.5-73.1) % Lymph % (Auto) (18.3-44.2) % [place] # (Auto) (0.1-0.6) K/mm3 Abs Immat Gran (auto) (0.00-0.031) K/mm3 Absolute Neuts (auto) (1.3-6.7) K/mm3 Potassium (3.4-5.0) mmol/L Carbon Dioxide (22-30) mmol/L Anion Gap (4-12) mmol/L BUN (7-17) mg/dL Creatinine (0.7-1.0) mg/dL Estimated GFR (59 - ) Glucose (65-110) mg/dL POC Capillary Glucose 217 H (65-105) mg/dl Hemoglobin A1c (<5.7) % Urine Nitrate (Negative) Leukocyte Esterase Rfl (Negative) LORRAINE/UL Urine Bacteria /hpf H & H 08// Range/Units 20:22 Hgb 12.6 (12.0-15.0) g/dL Hct 38.7 (37.0-47.0) % All other labs normal.
[2025-03-26] MEDS: SODIUM CHLORIDE 0.9% IV 1,000 ML 125 ML IV CONT (21:28)
[2025-03-26] MEDS: GABAPENTIN 300 MG CAPSULE PO (21:33)
[2025-03-26] MEDS: APIXABAN 5 MG TABLET PO (21:33)
[2025-03-26] MEDS: INSULIN GLARGINE (*BKC) 100 UNITS/ML 7 UNITS SUB-Q (22:06)
[2025-03-27] VITALS (12 sets, daily range): BP systolic 113–154; BP diastolic 58–71; PULSE 72–88; RESP 14–16; TEMP 36.6–36.8; O2SAT 92–98
[2025-03-27] MEDS: HYDROcodone/acetaminophen (*CRX) 5-325 MG TABLET 1 TAB PO ×4 (04:40→20:49)
[2025-03-27] MEDS: SODIUM CHLORIDE 0.9% IV 1,000 ML 125 ML IV CONT ×2 (05:57→14:15)
[2025-03-27] MEDS: LEVOTHYROXINE SODIUM 50 MCG TABLET PO (05:57)
[2025-03-27] MEDS: ISOSORBIDE MONONITRATE 60 MG TAB.ER.24H PO (08:45)
[2025-03-27] MEDS: ATORVASTATIN 40 MG TABLET PO (08:46)
[2025-03-27] MEDS: METOPROLOL SUCCINATE EXT REL 12.5 MG TABCR 37.5 MG PO (08:46)
[2025-03-27] MEDS: LIDOCAINE 5% PATCH 1 PATCH TRANSDERM (08:47)
[2025-03-27] MEDS: APIXABAN 5 MG TABLET PO ×2 (08:47→20:50)
[2025-03-27] MEDS: PANTOPRAZOLE 40 MG TABLET PO ×2 (08:47→17:57)
[2025-03-27] MEDS: ESCITALOPRAM OXALATE 10 MG TABLET 20 MG PO (08:47)
--- NOTE | 2025-03-27 10:11 | P.PNIM_ITS ---
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 failure: Code(s): I11.9 - Hypertensive heart disease without heart failure Status: Acute (5) Coronary artery disease involving [place] coronary artery of [place] heart: Code(s): I25.10 - Atherosclerotic heart disease of [place] coronary artery without angina pectoris Status: Acute (6) Atrial fibrillation: Code(s): I48.91 - Unspecified atrial fibrillation Status: Acute (7) Hyperlipidemia: Code(s): E78.5 - Hyperlipidemia, unspecified Status: Acute (8) Diabetes: Code(s): E11.9 - Type 2 diabetes mellitus without complications Status: Acute (9) Gastroesophageal reflux disease: Code(s): K21.9 - Gastro-esophageal reflux disease without esophagitis Status: Acute (10) Ground-level fall: Code(s): W18.30XA - Fall on same level, unspecified, initial encounter Status: Acute (11) Acetabular fracture: Code(s): S32.409A - Unspecified fracture of unspecified acetabulum, initial encounter for closed fracture Status: Acute Plan 84 yo female presents for a fall with right wrist pain and right hip pain. Ortho was consulted. DR Dr. Latif, orthopedic surgery, recommended CT pelvis to further characterize fracture, no operative plan at this time. CT did show and additional r sacral alar fracture. TTP over the right greater trochanter. TTP over the right dorsal wrist. CT head and c spine negative. XR wrist showed a scapholunate dissociation. XR pelvis showed right superior and inferior rami fractures as well as a left pubic fracture. She was started on SS and lantus for diabetes (her home meds are held) she has a morphine pain pump that is functional. RN will be coming to check on it. careful with additional pain meds not to cause resp distress. PT/OT continue elquis neurovascular checks awaiting for ortho to see pt and an official recommendations -care coordination following for rehab placement home meds reviewed and restarted as appropriate pt is full code 03/27 ortho cnsult completed. weight bearing as tolerated. f/u with DR Latif in 1 week after discharge. working with care coordination for rehab placement hga1c 6.1 will continue with diabetic regimen Time Spent With Patient Time with patient: 25 - 35 minutes Subjective Date/time seen: 03/27/25 10:11 Interval history: Narrative: 84-year-old female with Right Hip and Right Wrist Pain. She was working in her garden when had a walker slipped off a small retaining wall falling onto her right side. She denies hitting her head, no loc. She does report right wrist pain, right arm pain, right hip pain, and right thigh pain. pt is seen and examined. pain is tolerable. care coordination following for placement Review of Systems Review of Systems: All systems reviewed & are unremarkable except as noted in HPI and below Exam Narrative: pain pump to low left abd Const: General: comfortable Resp: Effort & Inspection: normal respiratory effort Cardio: Rate: regular rate Rhythm: regular rhythm GI: Auscultation: normal bowel sounds Skin: Other: scattered skin tears Extrem: Other: tender to palpation to the mid right humerus. Tenderness to palpation over the dorsum of the distal wrist. Neurovascularly intact distally. Tenderness palpation over the right greater trochanter. Leg is not internally rotated or shortened. Psych: Affect: normal affect Objective Data Vital Signs Vital Signs: Vital Signs - 24 hr 03/26/25 12:00 03/26/25 13:07 03/26/25 15:00 Temperature Pulse Rate 72 73 Respiratory Rate 14 Blood Pressure 119/50 L Pulse Oximetry 93 Oxygen Delivery Room Air Oxygen Flow Rate 03/26/25 15:24 03/26/25 16:00 03/26/25 20:00 Temperature Pulse Rate 78 72 Respiratory Rate 16 Blood Pressure Pulse Oximetry 92 Oxygen Delivery Room Air Room Air Oxygen Flow Rate 03/26/25 20:00 03/26/25 22:00 03/27/25 00:00 Temperature 98.7 F Pulse Rate 77 72 78 Respiratory Rate 16 Blood Pressure 124/51 L Pulse Oximetry 92 Oxygen Delivery Oxygen Flow Rate 03/27/25 04:00 03/27/25 04:34 03/27/25 08:46 Temperature 98.2 F Pulse Rate 75 82 87 Respiratory Rate 16 Blood Pressure 153/64 H Pulse Oximetry 92 Oxygen Delivery Oxygen Flow Rate 03/27/25 09:04 Temperature Pulse Rate Respiratory Rate Blood Pressure Pulse Oximetry 97 Oxygen Delivery Nasal Cannula Oxygen Flow Rate 2 Intake/Output Intake/Output: Intake & Output 03/24/25 03/25/25 03/26/25 03/27/25 23:59 23:59 23:59 23:59 Intake Total 1840 1240 Output Total 550 2050 300 Balance -550 -210 940 Meds/Results Medications: Active Medications Generic Name Dose Route Start Last Admin Trade Name Freq PRN Reason Stop Dose Admin Acetaminophen 650 mg 03/26/25 10:40 Acetaminophen 325 Mg Tablet PO Q6H PRN Pain 1-3 or Fever Hydrocodone Bitart/Acetaminophen 1 tab 03/26/25 13:13 03/27/25 08:45 Hydrocodone/Acetaminophen (*Crx) 5-325 Mg Tablet PO 1 tab Q4-6H PRN Administration Pain Rated 4-6 Amlodipine Besylate 10 mg 03/26/25 11:00 03/27/25 08:46 Amlodipine Besylate 10 Mg Tablet BY MOUTH 10 mg DAILY DINORA Administration Apixaban 5 mg 03/26/25 21:00 03/27/25 08:47 Apixaban 5 Mg Tablet PO 5 mg Q12HR DINORA Administration Atorvastatin Calcium 40 mg 03/26/25 11:00 03/27/25 08:46 Atorvastatin 40 Mg Tablet PO 40 mg DAILY DINORA Administration Dextrose 12.5 gm 03/26/25 10:48 Dextrose 50% 25 Gm/50 Ml Syringe IV PUSH PRN PRN Hypoglycemia Protocol Escitalopram Oxalate 20 mg 03/26/25 11:00 03/27/25 08:47 Escitalopram Oxalate 10 Mg Tablet PO 20 mg DAILY DINORA Administration Gabapentin 300 mg 03/26/25 21:00 03/26/25 21:33 Gabapentin 300 Mg Capsule PO 300 mg HS DINORA Administration Glucagon 1 mg 03/26/25 10:48 Glucagon For Inj 1 Mg Vial IM PRN PRN Hypoglycemia Protocol Glucose 15 gm 03/26/25 10:48 Glucose Oral Gel 15 Gm Of Glucse In 37.5 Gm Tube PO PRN PRN Hypoglycemia Protocol Hydromorphone HCl 0.5 mg 03/25/25 21:06 03/26/25 14:56 Hydromorphone Hcl Inj (*Crx) 1 Mg/Ml Syr IV PUSH 0.5 mg Q4H PRN Administration Pain Rated 7-10 Sodium Chloride 1,000 mls @ 125 mls/hr 03/25/25 21:10 03/27/25 05:57 Normal Saline Iv IV CONT 125 mls/hr .Q8H DINORA Administration Dextrose 1,000 mls @ 100 mls/hr 03/26/25 10:48 Dextrose 5% 1,000 Ml IVPB PRN PRN Hypoglycemia Protocol Insulin Aspart 2 - 5 units 03/26/25 12:00 03/27/25 08:42 Insulin Aspart (*Bkc) 100 Units/Ml SUB-Q Not Given TIDWM DINORA Protocol Insulin Glargine 7 units 03/26/25 21:00 03/26/25 22:06 Insulin Glargine (*Bkc) 100 Units/Ml SUB-Q 7 units HS DINORA Administration Isosorbide Mononitrate 60 mg 03/26/25 11:00 03/27/25 08:45 Isosorbide Mononitrate 60 Mg Tab.Er.24h PO 60 mg DAILY DINORA Administration Levothyroxine Sodium 50 mcg 03/27/25 06:30 03/27/25 05:57 Levothyroxine Sodium 50 Mcg Tablet PO 50 mcg DAILY@0630 DINORA Administration Lidocaine 1 patch 03/27/25 09:00 03/27/25 08:47 Lidocaine 5% Patch TRANSDERM 1 patch DAILY DINORA Administration Methocarbamol 500 mg 03/26/25 15:06 03/27/25 04:40 Methocarbamol 500 Mg Tablet PO 500 mg TID PRN Administration muscle spasm Metoprolol Succinate 37.5 mg 03/27/25 09:00 03/27/25 08:46 Metoprolol Succinate Ext Rel 12.5 Mg Tabcr PO 37.5 mg DAILY DINORA Administration Miscellaneous Information 1 each 03/27/25 00:01 03/27/25 05:56 Clarify Intrathecal Morphine Pump Infusion Dosing XX 04/26/25 00:00 Not G iven CLARIFY DINORA Nitroglycerin 0.4 mg 03/26/25 10:45 Nitroglycerin Sl 0.4 Mg Tablet SUBLINGUAL PRN PRN Chest Pain Non-Formulary Medication 1 each 03/26/25 15:15 Home Medication IMPLANT 04/25/25 15:14 DIRECTED [facility] Non-Formulary Medication 1 syr 03/27/25 09:00 Morphine (Pf) CNTINTRATH 04/26/25 08:59 DAILY [facility] Ondansetron HCl 4 mg 03/25/25 21:06 Ondansetron Inj 4 Mg/2 Ml Vial IV PUSH Q4H PRN Nausea Ondansetron HCl 4 mg 03/26/25 10:45 Ondansetron Hcl Odt 4 Mg Tablet PO Q8H PRN nausea and vomiting Pantoprazole Sodium 40 mg 03/26/25 17:00 03/27/25 08:47 Pantoprazole 40 Mg Tablet PO 40 mg BID DINORA Administration Polyethylene Glycol 17 gm 03/26/25 10:45 03/27/25 08:44 Polyethylene Glycol 3350 17 Gm Powd.Pack PO 17 gm DAILY PRN Administration constipation Radiology Results: ITS Impressions Head CT 03/25/25 19:19 Impression: No acute intracranial hemorrhage or suspicious mass effect. Cervical Spine CT 03/25/25 19:38 IMPRESSION: No acute fracture or traumatic malalignment in the cervical spine. 2.2 cm left thyroid nodule, consider outpatient thyroid ultrasound for further evaluation, depending on the patient's clinical condition and wishes. Humerus X-Ray 03/25/25 19:42 IMPRESSION: Significant demineralization, without acute fracture or dislocation. Femur X-Ray 03/25/25 19:47 IMPRESSION: Acute right obturator ring fractures. Acute left pubic bone fracture. No acute osseous finding or hardware related complication detected in the right femur. Hip/Pelvis X-Ray 03/25/25 19:47 IMPRESSION: Acute right obturator ring fractures. Acute left pubic bone fracture. No acute osseous finding or hardware related complication detected in the right femur. Chest X-Ray 03/25/25 20:02 IMPRESSION: No acute cardiopulmonary process. Wrist X-Ray 03/25/25 20:05 IMPRESSION: Scapholunate widening as can be seen with scapholunate dissociation. No acute fracture detected in the right wrist. Pelvis CT 03/25/25 20:57 IMPRESSION: Minimally displaced right sacral alar fracture. Nondisplaced fractures of the bilateral obturator rings. Mild dilation of the Godinez's pouch in the right lower quadrant, may represent active filling. Developing obstruction is not excluded. Labs Labs: Laboratory Results - last 24 hr 03/26/25 03/26/25 03/26/25 11:39 12:00 16:24 POC Capillary Glucose 217 H 89 Hemoglobin A1c 6.1 H 03/26/25 03/27/25 22:00 07:37 POC Capillary Glucose 131 H 95 Hemoglobin A1c Quality VTE Prophylaxis VTE prophylaxis: mechanical ordered and pharmacologic ordered (on eliquis but holding it for now )
[2025-03-27 14:21] LABS: Hematocrit 32.7 % (37.0-47.0); Hemoglobin 10.4 g/dL (12.0-15.0); Mean Corpuscular HGB Conc 31.8 g/dl (32-36); Mean Corpuscular Hemoglobin 28.5 pg (26-34); Mean Corpuscular Volume 89.6 fl (80-100); Platelet Count Result 181 k/mm3 (150-375); Red Blood Count 3.65 M/mm3 (4.2-5.4); White Blood Count 8.4 K/mm3 (4.5-10.0)
[2025-03-27 14:47] LABS: Anion Gap 8 mmol/L (4-12); Blood Urea Nitrogen 17 mg/dL (7-17); Calcium 8.6 mg/dL (8.4-10.2); Carbon Dioxide 21 mmol/L (22-30); Chloride 110 mmol/L (98-107); Estimated CRCL calculation 29 ml/min; Estimated Glomerular Filt Rate 45; Glucose 241 mg/dL (65-110); Potassium 3.8 mmol/L (3.4-5.0); Sodium 139 mmol/L (137-145)
[2025-03-27] MEDS: GABAPENTIN 300 MG CAPSULE PO (20:49)
[2025-03-27] MEDS: INSULIN GLARGINE (*BKC) 100 UNITS/ML 7 UNITS SUB-Q (22:09)
[2025-03-28] VITALS (11 sets, daily range): BP systolic 126–162; BP diastolic 51–68; PULSE 71–84; RESP 14–18; TEMP 36.5–36.8; O2SAT 93–96
[2025-03-28] MEDS: HYDROcodone/acetaminophen (*CRX) 5-325 MG TABLET 1 TAB PO ×4 (05:02→21:16)
[2025-03-28] MEDS: SODIUM CHLORIDE 0.9% IV 1,000 ML 125 ML IV CONT (05:48)
[2025-03-28] MEDS: LEVOTHYROXINE SODIUM 50 MCG TABLET PO (05:49)
[2025-03-28] MEDS: LIDOCAINE 5% PATCH 1 PATCH TRANSDERM (08:18)
[2025-03-28] MEDS: HYDROmorphone HCL INJ (*CRX) 1 MG/ML SYR 0.5 MG IV PUSH (08:19)
[2025-03-28] MEDS: ATORVASTATIN 40 MG TABLET PO (08:29)
[2025-03-28] MEDS: APIXABAN 5 MG TABLET PO ×2 (08:29→21:15)
[2025-03-28] MEDS: PANTOPRAZOLE 40 MG TABLET PO ×2 (08:29→17:23)
[2025-03-28] MEDS: METOPROLOL SUCCINATE EXT REL 12.5 MG TABCR 37.5 MG PO (08:30)
[2025-03-28] MEDS: ESCITALOPRAM OXALATE 10 MG TABLET 20 MG PO (08:30)
[2025-03-28] MEDS: ISOSORBIDE MONONITRATE 60 MG TAB.ER.24H PO (08:30)
--- NOTE | 2025-03-28 10:46 | PM.IMPN ---
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 failure: Code(s): I11.9 - Hypertensive heart disease without heart failure Status: Acute (5) Coronary artery disease involving [place] coronary artery of [place] heart: Code(s): I25.10 - Atherosclerotic heart disease of [place] coronary artery without angina pectoris Status: Acute (6) Atrial fibrillation: Code(s): I48.91 - Unspecified atrial fibrillation Status: Acute (7) Hyperlipidemia: Code(s): E78.5 - Hyperlipidemia, unspecified Status: Acute (8) Diabetes: Code(s): E11.9 - Type 2 diabetes mellitus without complications Status: Acute (9) Gastroesophageal reflux disease: Code(s): K21.9 - Gastro-esophageal reflux disease without esophagitis Status: Acute (10) Ground-level fall: Code(s): W18.30XA - Fall on same level, unspecified, initial encounter Status: Acute (11) Acetabular fracture: Code(s): S32.409A - Unspecified fracture of unspecified acetabulum, initial encounter for closed fracture Status: Acute Plan 84 yo female presents for a fall with right wrist pain and right hip pain. Ortho was consulted. DR Dr. Latif, orthopedic surgery, recommended CT pelvis to further characterize fracture, no operative plan at this time. CT did show and additional r sacral alar fracture. TTP over the right greater trochanter. TTP over the right dorsal wrist. CT head and c spine negative. XR wrist showed a scapholunate dissociation. XR pelvis showed right superior and inferior rami fractures as well as a left pubic fracture. She was started on SS and lantus for diabetes (her home meds are held) she has a morphine pain pump that is functional. RN will be coming to check on it. careful with additional pain meds not to cause resp distress. PT/OT continue elquis neurovascular checks awaiting for ortho to see pt and an official recommendations -care coordination following for rehab placement home meds reviewed and restarted as appropriate pt is full code 03/27 ortho consult completed. weight bearing as tolerated. f/u with DR Latif in 1 week after discharge. working with care coordination for rehab placement hga1c 6.1 will continue with diabetic regimen 03/28 was placed on oxygen yesterday. will order chest xray to eval for pneumonia- as decreased mobility/rib pain put her at risk for developing pneumonia. IS ordered. Ambulation encouraged. She was in pain last night and received IV pain meds- so [facility] will not accept pt now today. Chest xray: Probable discoid right basilar atelectasis. Pneumonia probably less likely. Correlate clinically. Follow-up exam advised. - will wait to start antibiotics and encourage IS and ambulation. If develops fever, start having cough, or any other symptoms change- will consider initiating antibiotics. Time Spent With Patient Time with patient: 25 - 35 minutes Subjective Date/time seen: 03/28/25 10:46 Interval history: Narrative: 84-year-old female with Right Hip and Right Wrist Pain. She was working in her garden when had a walker slipped off a small retaining wall falling onto her right side. She denies hitting her head, no loc. She does report right wrist pain, right arm pain, right hip pain, and right thigh pain. pt is seen and examined. pain is tolerable. care coordination following for placement 03/28 on oxygen now. IS ordered, she is working with pt/ot. Review of Systems Review of Systems: All systems reviewed & are unremarkable except as noted in HPI and below Exam Narrative: pain pump to low left abd Const: General: comfortable Resp: Effort & Inspection: normal respiratory effort Cardio: Rate: regular rate Rhythm: regular rhythm GI: Auscultation: normal bowel sounds Skin: Other: scattered skin tears Extrem: Other: tender to palpation to the mid right humerus. Tenderness to palpation over the dorsum of the distal wrist. Neurovascularly intact distally. Tenderness palpation over the right greater trochanter. Leg is not internally rotated or shortened. Psych: Affect: normal affect Objective Data Vital Signs Vital Signs: Vital Signs - 24 hr 03/27/25 12:00 03/27/25 13:55 03/27/25 16:00 Temperature 97.9 F Pulse Rate 75 72 74 Respiratory Rate 14 Blood Pressure 113/58 L Pulse Oximetry 98 Oxygen Delivery Oxygen Flow Rate 03/27/25 20:00 03/27/25 20:00 03/27/25 21:36 Temperature 98.0 F Pulse Rate 85 82 85 Respiratory Rate 16 16 Blood Pressure 154/71 H Pulse Oximetry 98 98 Oxygen Delivery Nasal Cannula Oxygen Flow Rate 2 03/28/25 00:00 03/28/25 04:00 03/28/25 04:57 Temperature 97.7 F Pulse Rate 78 77 84 Respiratory Rate 16 Blood Pressure 162/68 H Pulse Oximetry 95 Oxygen Delivery Oxygen Flow Rate 03/28/25 08:30 03/28/25 08:40 Temperature Pulse Rate 75 76 Respiratory Rate 17 Blood Pressure Pulse Oximetry 93 Oxygen Delivery Oxygen Flow Rate Intake/Output Intake/Output: Intake & Output 03/25/25 03/26/25 03/27/25 03/28/25 23:59 23:59 23:59 23:59 Intake Total 1840 4200 990 Output Total 550 2050 1750 1700 Balance -550 -210 2450 -710 Meds/Results Medications: Active Medications Generic Name Dose Route Start Last Admin Trade Name Freq PRN Reason Stop Dose Admin Acetaminophen 650 mg 03/26/25 10:40 Acetaminophen 325 Mg Tablet PO Q6H PRN Pain 1-3 or Fever Hydrocodone Bitart/Acetaminophen 1 tab 03/26/25 13:13 03/28/25 05:02 Hydrocodone/Acetaminophen (*Crx) 5-325 Mg Tablet PO 1 tab Q4-6H PRN Administration Pain Rated 4-6 Amlodipine Besylate 10 mg 03/26/25 11:00 03/28/25 08:29 Amlodipine Besylate 10 Mg Tablet BY MOUTH 10 mg DAILY [facility] Administration Apixaban 5 mg 03/26/25 21:00 03/28/25 08:29 Apixaban 5 Mg Tablet PO 5 mg Q12HR [facility] Administration Atorvastatin Calcium 40 mg 03/26/25 11:00 03/28/25 08:29 Atorvastatin 40 Mg Tablet PO 40 mg DAILY [facility] Administration Dextrose 12.5 gm 03/26/25 10:48 Dextrose 50% 25 Gm/50 Ml Syringe IV PUSH PRN PRN Hypoglycemia Protocol Escitalopram Oxalate 20 mg 03/26/25 11:00 03/28/25 08:30 Escitalopram Oxalate 10 Mg Tablet PO 20 mg DAILY [facility] Administration Gabapentin 300 mg 03/26/25 21:00 03/27/25 20:49 Gabapentin 300 Mg Capsule PO 300 mg HS [facility] Administration Glucagon 1 mg 03/26/25 10:48 Glucagon For Inj 1 Mg Vial IM PRN PRN Hypoglycemia Protocol Glucose 15 gm 03/26/25 10:48 Glucose Oral Gel 15 Gm Of Glucse In 37.5 Gm Tube PO PRN PRN Hypoglycemia Protocol Hydromorphone HCl 0.5 mg 03/25/25 21:06 03/28/25 08:19 Hydromorphone Hcl Inj (*Crx) 1 Mg/Ml Syr IV PUSH 0.5 mg Q4H PRN Administration Pain Rated 7-10 Sodium Chloride 1,000 mls @ 125 mls/hr 03/25/25 21:10 03/28/25 05:48 Normal Saline Iv IV CONT 125 mls/hr .Q8H [facility] Administration Dextrose 1,000 mls @ 100 mls/hr 03/26/25 10:48 Dextrose 5% 1,000 Ml IVPB PRN PRN Hypoglycemia Protocol Insulin Aspart 2 - 5 units 03/26/25 12:00 03/28/25 08:31 Insulin Aspart (*Bkc) 100 Units/Ml SUB-Q Not Given TIDWM [facility] Protocol Insulin Glargine 7 units 03/26/25 21:00 03/27/25 22:09 Insulin Glargine (*Bkc) 100 Units/Ml SUB-Q 7 units HS [facility] Administration Isosorbide Mononitrate 60 mg 03/26/25 11:00 03/28/25 08:30 Isosorbide Mononitrate 60 Mg Tab.Er.24h PO 60 mg DAILY [facility] Administration Levothyroxine Sodium 50 mcg 03/27/25 06:30 03/28/25 05:49 Levothyroxine Sodium 50 Mcg Tablet PO 50 mcg DAILY@0630 [facility] Administration Lidocaine 1 patch 03/27/25 09:00 03/28/25 08:18 Lidocaine 5% Patch TRANSDERM 1 patch DAILY [facility] Administration Methocarbamol 500 mg 03/26/25 15:06 03/28/25 05:02 Methocarbamol 500 Mg Tablet PO 500 mg TID PRN Administration muscle spasm Metoprolol Succinate 37.5 mg 03/27/25 09:00 03/28/25 08:30 Metoprolol Succinate Ext Rel 12.5 Mg Tabcr PO 37.5 mg DAILY [facility] Administration Miscellaneous Information 1 each 03/27/25 00:01 03/28/25 08:12 Clarify Intrathecal Morphine Pump Infusion Dosing XX 04/26/25 00:00 Not Given CLARIFY [facility] Nitroglycerin 0.4 mg 03/26/25 10:45 Nitroglycerin Sl 0.4 Mg Tablet SUBLINGUAL PRN PRN Chest Pain Non-Formulary Medication 1 each 03/26/25 15:15 Home Medication IMPLANT 04/25/25 15:14 DIRECTED [facility] Non-Formulary Medication 1 syr 03/27/25 09:00 Morphine (Pf) CNTINTRATH 04/26/25 08:59 DAILY [facility] Ondansetron HCl 4 mg 03/25/25 21:06 Ondansetron Inj 4 Mg/2 Ml Vial IV PUSH Q4H PRN Nausea Ondansetron HCl 4 mg 03/26/25 10:45 Ondansetron Hcl Odt 4 Mg Tablet PO Q8H PRN nausea and vomiting Pantoprazole Sodium 40 mg 03/26/25 17:00 03/28/25 08:29 Pantoprazole 40 Mg Tablet PO 40 mg BID [facility] Administration Polyethylene Glycol 17 gm 03/26/25 10:45 03/27/25 08:44 Polyethylene Glycol 3350 17 Gm Powd.Pack PO 17 gm DAILY PRN Administration constipation Radiology Results: ITS Impressions Head CT 03/25/25 19:19 Impression: No acute intracranial hemorrhage or suspicious mass effect. Cervical Spine CT 03/25/25 19:38 IMPRESSION: No acute fracture or traumatic malalignment in the cervical spine. 2.2 cm left thyroid nodule, consider outpatient thyroid ultrasound for further evaluation, depending on the patient's clinical condition and wishes. Humerus X-Ray 03/25/25 19:42 IMPRESSION: Significant demineralization, without acute fracture or dislocation. Femur X-Ray 03/25/25 19:47 IMPRESSION: Acute right obturator ring fractures. Acute left pubic bone fracture. No acute osseous finding or hardware related complication detected in the right femur. Hip/Pelvis X-Ray 03/25/25 19:47 IMPRESSION: Acute right obturator ring fractures. Acute left pubic bone fracture. No acute osseous finding or hardware related complication detected in the right femur. Chest X-Ray 03/25/25 20:02 IMPRESSION: No acute cardiopulmonary process. Wrist X-Ray 03/25/25 20:05 IMPRESSION: Scapholunate widening as can be seen with scapholunate dissociation. No acute fracture detected in the right wrist. Pelvis CT 03/25/25 20:57 IMPRESSION: Minimally displaced right sacral alar fracture. Nondisplaced fractures of the bilateral obturator rings. Mild dilation of the Godinez's pouch in the right lower quadrant, may represent active filling. Developing obstruction is not excluded. Labs Labs: Laboratory Results - last 24 hr 03/27/25 03/27/25 03/27/25 11:48 14:13 16:46 WBC 8.4 RBC 3.65 L Hgb 10.4 L Hct 32.7 L MCV 89.6 MCH 28.5 MCHC 31.8 L RDW 14.6 H Plt Count 181 MPV 8.7 Sodium 139 Potassium 3.8 Chloride 110 H Carbon Dioxide 21 L Anion Gap 8 BUN 17 D Creatinine 1.14 H Estim Creat Clear Calc 29 Estimated GFR 45 L Glucose 241 H POC Capillary Glucose 170 H 190 H Calcium 8.6 03/27/25 03/28/25 21:39 07:49 WBC RBC Hgb Hct MCV MCH MCHC RDW Plt Count MPV Sodium Potassium Chloride Carbon Dioxide Anion Gap BUN Creatinine Estim Creat Clear Calc Estimated GFR Glucose POC Capillary Glucose 202 H 121 H Calcium Quality VTE Prophylaxis VTE prophylaxis: mechanical ordered and pharmacologic ordered (on eliquis but holding it for now )
[2025-03-28] MEDS: INSULIN ASPART (*BKC) 100 UNITS/ML SUB-Q (17:25)
[2025-03-28] MEDS: GABAPENTIN 300 MG CAPSULE PO (21:16)
[2025-03-28] MEDS: INSULIN GLARGINE (*BKC) 100 UNITS/ML 7 UNITS SUB-Q (21:17)
[2025-03-29] VITALS (10 sets, daily range): BP systolic 124–134; BP diastolic 59–66; PULSE 66–85; RESP 14–20; TEMP 36.4–37.2; O2SAT 91–97
[2025-03-29 04:37] LABS: Hematocrit 33.4 % (37.0-47.0); Hemoglobin 10.6 g/dL (12.0-15.0); Mean Corpuscular HGB Conc 31.7 g/dl (32-36); Mean Corpuscular Hemoglobin 28.3 pg (26-34); Mean Corpuscular Volume 89.1 fl (80-100); Platelet Count Result 172 k/mm3 (150-375); Red Blood Count 3.75 M/mm3 (4.2-5.4); White Blood Count 7.2 K/mm3 (4.5-10.0)
[2025-03-29 04:49] LABS: Anion Gap 8 mmol/L (4-12); Blood Urea Nitrogen 16 mg/dL (7-17); Carbon Dioxide 21 mmol/L (22-30); Chloride 109 mmol/L (98-107); Estimated CRCL calculation 33 ml/min; Estimated Glomerular Filt Rate 54; Potassium 3.3 mmol/L (3.4-5.0); Sodium 138 mmol/L (137-145)
[2025-03-29 04:51] LABS: Calcium 8.8 mg/dL (8.4-10.2); Glucose 120 mg/dL (65-110)
[2025-03-29] MEDS: LEVOTHYROXINE SODIUM 50 MCG TABLET PO (06:36)
[2025-03-29] MEDS: HYDROcodone/acetaminophen (*CRX) 5-325 MG TABLET 1 TAB PO (06:38)
[2025-03-29] MEDS: APIXABAN 5 MG TABLET PO ×2 (09:53→20:23)
[2025-03-29] MEDS: ATORVASTATIN 40 MG TABLET PO (09:53)
[2025-03-29] MEDS: ISOSORBIDE MONONITRATE 60 MG TAB.ER.24H PO (09:53)
[2025-03-29] MEDS: PANTOPRAZOLE 40 MG TABLET PO ×2 (09:53→16:47)
[2025-03-29] MEDS: METOPROLOL SUCCINATE EXT REL 12.5 MG TABCR 37.5 MG PO (09:53)
[2025-03-29] MEDS: ESCITALOPRAM OXALATE 10 MG TABLET 20 MG PO (09:53)
[2025-03-29] MEDS: LIDOCAINE 5% PATCH 1 PATCH TRANSDERM (09:54)
--- NOTE | 2025-03-29 13:42 | P.PNIM_ITS ---
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 failure: Code(s): I11.9 - Hypertensive heart disease without heart failure Status: Acute (5) Coronary artery disease involving [place] coronary artery of [place] heart: Code(s): I25.10 - Atherosclerotic heart disease of [place] coronary artery without angina pectoris Status: Acute (6) Atrial fibrillation: Code(s): I48.91 - Unspecified atrial fibrillation Status: Acute (7) Hyperlipidemia: Code(s): E78.5 - Hyperlipidemia, unspecified Status: Acute (8) Diabetes: Code(s): E11.9 - Type 2 diabetes mellitus without complications Status: Acute (9) Gastroesophageal reflux disease: Code(s): K21.9 - Gastro-esophageal reflux disease without esophagitis Status: Acute (10) Ground-level fall: Code(s): W18.30XA - Fall on same level, unspecified, initial encounter Status: Acute (11) Acetabular fracture: Code(s): S32.409A - Unspecified fracture of unspecified acetabulum, initial encounter for closed fracture Status: Acute Plan 84 yo female presents for a fall with right wrist pain and right hip pain. Ortho was consulted. DR Dr. Latif, orthopedic surgery, recommended CT pelvis to further characterize fracture, no operative plan at this time. CT did show and additional r sacral alar fracture. TTP over the right greater trochanter. TTP over the right dorsal wrist. CT head and c spine negative. XR wrist showed a scapholunate dissociation. XR pelvis showed right superior and inferior rami fractures as well as a left pubic fracture. She was started on SS and lantus for diabetes (her home meds are held) she has a morphine pain pump that is functional. RN will be coming to check on it. careful with additional pain meds not to cause resp distress. PT/OT continue elquis neurovascular checks awaiting for ortho to see pt and an official recommendations -care coordination following for rehab placement home meds reviewed and restarted as appropriate pt is full code 03/27 ortho consult completed. weight bearing as tolerated. f/u with DR Latif in 1 week after discharge. working with care coordination for rehab placement hga1c 6.1 will continue with diabetic regimen 03/28 was placed on oxygen yesterday. will order chest xray to eval for pneumonia- as decreased mobility/rib pain put her at risk for developing pneumonia. IS ordered. Ambulation encouraged. She was in pain last night and received IV pain meds- so [facility] will not accept pt now today. Chest xray: Probable discoid right basilar atelectasis. Pneumonia probably less likely. Correlate clinically. Follow-up exam advised. - will wait to start antibiotics and encourage IS and ambulation. If develops fever, start having cough, or any other symptoms change- will consider initiating antibiotics. 03/29 no IV pain meds off oxygen now-doing well. continue IS, ambulation. Awaiting [facility] trasfer. Time Spent With Patient Time with patient: 25 - 35 minutes Subjective Date/time seen: 03/29/25 13:42 Interval history: Narrative: 84-year-old female with Right Hip and Right Wrist Pain. She was working in her garden when had a walker slipped off a small retaining wall falling onto her right side. She denies hitting her head, no loc. She does report right wrist pain, right arm pain, right hip pain, and right thigh pain. pt is seen and examined. pain is tolerable. care coordination following for placement 03/28 on oxygen now. IS ordered, she is working with pt/ot. 03/29 off oxygen. up in the chair- doing well- awaiting for discharge to [facility] for therapy. Review of Systems Review of Systems: All systems reviewed & are unremarkable except as noted in HPI and below Exam Narrative: pain pump to low left abd Const: General: comfortable Resp: Effort & Inspection: normal respiratory effort Cardio: Rate: regular rate Rhythm: regular rhythm GI: Auscultation: normal bowel sounds Skin: Other: scattered skin tears Extrem: Other: tender to palpation to the mid right humerus. Tenderness to palpation over the dorsum of the distal wrist. Neurovascularly intact distally. Tenderness palpation over the right greater trochanter. Leg is not internally rotated or shortened. Psych: Affect: normal affect Objective Data Vital Signs Vital Signs: Vital Signs - 24 hr 03/28/25 13:54 03/28/25 16:00 03/28/25 20:00 Temperature Pulse Rate 74 71 Respiratory Rate 14 Blood Pressure 126/56 L Pulse Oximetry 96 95 Oxygen Delivery Nasal Cannula Oxygen Flow Rate 1 03/28/25 20:00 03/28/25 20:56 03/29/25 00:00 Temperature 98.2 F Pulse Rate 72 76 72 Respiratory Rate 18 Blood Pressure 127/51 L Pulse Oximetry 95 Oxygen Delivery Oxygen Flow Rate 03/29/25 03:41 03/29/25 04:00 03/29/25 09:52 Temperature 97.6 F 98.1 F Pulse Rate 75 70 66 Respiratory Rate 20 18 Blood Pressure 134/59 L 124/61 Pulse Oximetry 91 96 Oxygen Delivery Oxygen Flow Rate 03/29/25 09:53 03/29/25 09:53 03/29/25 09:53 Temperature Pulse Rate 67 67 67 Respiratory Rate 18 Blood Pressure Pulse Oximetry 96 Oxygen Delivery Room Air Oxygen Flow Rate 03/29/25 12:00 Temperature Pulse Rate 74 Respiratory Rate Blood Pressure Pulse Oximetry Oxygen Delivery Oxygen Flow Rate Intake/Output Intake/Output: Intake & Output 03/26/25 03/27/25 03/28/25 03/29/25 23:59 23:59 23:59 23:59 Intake Total 1840 4200 1720 720 Output Total 2050 1750 1900 1200 Balance -210 2450 -180 -480 Meds/Results Medications: Active Medications Generic Name Dose Route Start Last Admin Trade Name Freq PRN Reason Stop Dose Admin Acetaminophen 650 mg 03/26/25 10:40 Acetaminophen 325 Mg Tablet PO Q6H PRN Pain 1-3 or Fever Hydrocodone Bitart/Acetaminophen 1 tab 03/26/25 13:13 03/29/25 06:38 Hydrocodone/Acetaminophen (*Crx) 5-325 Mg Tablet PO 1 tab Q4-6H PRN Administration Pain Rated 4-6 Amlodipine Besylate 10 mg 03/26/25 11:00 03/29/25 09:53 Amlodipine Besylate 10 Mg Tablet BY MOUTH 10 mg DAILY [facility] Administration Apixaban 5 mg 03/26/25 21:00 03/29/25 09:53 Apixaban 5 Mg Tablet PO 5 mg Q12HR [facility] Administration Atorvastatin Calcium 40 mg 03/26/25 11:00 03/29/25 09:53 Atorvastatin 40 Mg Tablet PO 40 mg DAILY [facility] Administration Dextrose 12.5 gm 03/26/25 10:48 Dextrose 50% 25 Gm/50 Ml Syringe IV PUSH PRN PRN Hypoglycemia Protocol Docusate Sodium 100 mg 03/29/25 21:00 Docusate Sodium 100 Mg Capsule PO Q12HR [facility] Escitalopram Oxalate 20 mg 03/26/25 11:00 03/29/25 09:53 Escitalopram Oxalate 10 Mg Tablet PO 20 mg DAILY [facility] Administration Gabapentin 300 mg 03/26/25 21:00 03/28/25 21:16 Gabapentin 300 Mg Capsule PO 300 mg HS [facility] Administration Glucagon 1 mg 03/26/25 10:48 Glucagon For Inj 1 Mg Vial IM PRN PRN Hypoglycemia Protocol Glucose 15 gm 03/26/25 10:48 Glucose Oral Gel 15 Gm Of Glucse In 37.5 Gm Tube PO PRN PRN Hypoglycemia Protocol Hydromorphone HCl 0.5 mg 03/25/25 21:06 03/28/25 08:19 Hydromorphone Hcl Inj (*Crx) 1 Mg/Ml Syr IV PUSH 0.5 mg Q4H PRN Administration Pain Rated 7-10 Sodium Chloride 1,000 mls @ 125 mls/hr 03/25/25 21:10 03/28/25 12:24 Normal Saline Iv IV CONT Not Given .Q8H [facility] Dextrose 1,000 mls @ 100 mls/hr 03/26/25 10:48 Dextrose 5% 1,000 Ml IVPB PRN PRN Hypoglycemia Protocol Insulin Aspart 2 - 5 units 03/26/25 12:00 03/29/25 12:12 Insulin Aspart (*Bkc) 100 Units/Ml SUB-Q Not Given TIDWM [facility] Protocol Insulin Glargine 7 units 03/26/25 21:00 03/28/25 21:17 Insulin Glargine (*Bkc) 100 Units/Ml SUB-Q 7 units HS [facility] Administration Isosorbide Mononitrate 60 mg 03/26/25 11:00 03/29/25 09:53 Isosorbide Mononitrate 60 Mg Tab.Er.24h PO 60 mg DAILY [facility] Administration Levothyroxine Sodium 50 mcg 03/27/25 06:30 03/29/25 06:36 Levothyroxine Sodium 50 Mcg Tablet PO 50 mcg DAILY@0630 [facility] Administration Lidocaine 1 patch 03/27/25 09:00 03/29/25 09:54 Lidocaine 5% Patch TRANSDERM 1 patch DAILY [facility] Administration Methocarbamol 500 mg 03/26/25 15:06 03/28/25 17:23 Methocarbamol 500 Mg Tablet PO 500 mg TID PRN Administration muscle spasm Metoprolol Succinate 37.5 mg 03/27/25 09:00 03/29/25 09:53 Metoprolol Succinate Ext Rel 12.5 Mg Tabcr PO 37.5 mg DAILY [facility] Administration Miscellaneous Information 1 each 03/27/25 00:01 03/29/25 00:14 Clarify Intrathecal Morphine Pump Infusion Dosing XX 04/26/25 00:00 Not Given CLARIFY [facility] Nitroglycerin 0.4 mg 03/26/25 10:45 Nitroglycerin Sl 0.4 Mg Tablet SUBLINGUAL PRN PRN Chest Pain Non-Formulary Medication 1 each 03/26/25 15:15 Home Medication IMPLANT 04/25/25 15:14 DIRECTED [facility] Non-Formulary Medication 1 syr 03/27/25 09:00 Morphine (Pf) CNTINTRATH 04/26/25 08:59 DAILY [facility] Ondansetron HCl 4 mg 03/25/25 21:06 Ondansetron Inj 4 Mg/2 Ml Vial IV PUSH Q4H PRN Nausea Ondansetron HCl 4 mg 03/26/25 10:45 Ondansetron Hcl Odt 4 Mg Tablet PO Q8H PRN nausea and vomiting Pantoprazole Sodium 40 mg 03/26/25 17:00 03/29/25 09:53 Pantoprazole 40 Mg Tablet PO 40 mg BID [facility] Administration Polyethylene Glycol 17 gm 03/26/25 10:45 03/29/25 12:37 Polyethylene Glycol 3350 17 Gm Powd.Pack PO 17 gm DAILY PRN Administration constipation Radiology Results: ITS Impressions Head CT 03/25/25 19:19 Impression: No acute intracranial hemorrhage or suspicious mass effect. Cervical Spine CT 03/25/25 19:38 IMPRESSION: No acute fracture or traumatic malalignment in the cervical spine. 2.2 cm left thyroid nodule, consider outpatient thyroid ultrasound for further evaluation, depending on the patient's clinical condition and wishes. Humerus X-Ray 03/25/25 19:42 IMPRESSION: Significant demineralization, without acute fracture or dislocation. Femur X-Ray 03/25/25 19:47 IMPRESSION: Acute right obturator ring fractures. Acute left pubic bone fracture. No acute osseous finding or hardware related complication detected in the right femur. Hip/Pelvis X-Ray 03/25/25 19:47 IMPRESSION: Acute right obturator ring fractures. Acute left pubic bone fracture. No acute osseous finding or hardware related complication detected in the right femur. Wrist X-Ray 03/25/25 20:05 IMPRESSION: Scapholunate widening as can be seen with scapholunate dissociation. No acute fracture detected in the right wrist. Pelvis CT 03/25/25 20:57 IMPRESSION: Minimally displaced right sacral alar fracture. Nondisplaced fractures of the bilateral obturator rings. Mild dilation of the Godinez's pouch in the right lower quadrant, may represent active filling. Developing obstruction is not excluded. Chest X-Ray 03/28/25 11:17 Impression: Probable discoid right basilar atelectasis. Pneumonia probably less likely. Correlate clinically. Follow-up exam advised. Labs Labs: Laboratory Results - last 24 hr 03/28/25 03/28/25 03/29/25 16:35 21:01 04:27 WBC 7.2 RBC 3.75 L Hgb 10.6 L Hct 33.4 L MCV 89.1 MCH 28.3 MCHC 31.7 L RDW 14.1 Plt Count 172 MPV 9.1 Sodium 138 Potassium 3.3 L Chloride 109 H Carbon Dioxide 21 L Anion Gap 8 BUN 16 Creatinine 0.98 Estim Creat Clear Calc 33 Estimated GFR 54 L Glucose 120 H POC Capillary Glucose 210 H 215 H Calcium 8.8 03/29/25 03/29/25 07:30 11:49 WBC RBC Hgb Hct MCV MCH MCHC RDW Plt Count MPV Sodium Potassium Chloride Carbon Dioxide Anion Gap BUN Creatinine Estim Creat Clear Calc Estimated GFR Glucose POC Capillary Glucose 124 H 129 H Calcium Quality VTE Prophylaxis VTE prophylaxis: mechanical ordered and pharmacologic ordered (on eliquis but holding it for now )
[2025-03-29] MEDS: DOCUSATE SODIUM 100 MG CAPSULE PO (20:23)
[2025-03-29] MEDS: INSULIN GLARGINE (*BKC) 100 UNITS/ML 7 UNITS SUB-Q (20:23)
[2025-03-29] MEDS: GABAPENTIN 300 MG CAPSULE PO (20:23)
[2025-03-30] VITALS (9 sets, daily range): BP systolic 121–138; BP diastolic 52–60; PULSE 65–77; RESP 14–17; TEMP 36.4–36.6; O2SAT 93–98
[2025-03-30 05:14] LABS: Hematocrit 31.2 % (37.0-47.0); Hemoglobin 10.0 g/dL (12.0-15.0); Mean Corpuscular HGB Conc 32.1 g/dl (32-36); Mean Corpuscular Hemoglobin 28.0 pg (26-34); Mean Corpuscular Volume 87.4 fl (80-100); Platelet Count Result 191 k/mm3 (150-375); Red Blood Count 3.57 M/mm3 (4.2-5.4); White Blood Count 6.4 K/mm3 (4.5-10.0)
[2025-03-30] MEDS: LEVOTHYROXINE SODIUM 50 MCG TABLET PO (05:50)
[2025-03-30 05:55] LABS: Anion Gap 6 mmol/L (4-12); Blood Urea Nitrogen 23 mg/dL (7-17); Calcium 9.0 mg/dL (8.4-10.2); Carbon Dioxide 22 mmol/L (22-30); Chloride 110 mmol/L (98-107); Estimated CRCL calculation 34 ml/min; Estimated Glomerular Filt Rate 56; Glucose 119 mg/dL (65-110); Potassium 3.6 mmol/L (3.4-5.0); Sodium 138 mmol/L (137-145)
[2025-03-30] MEDS: ATORVASTATIN 40 MG TABLET PO (10:03)
[2025-03-30] MEDS: DOCUSATE SODIUM 100 MG CAPSULE PO (10:03)
[2025-03-30] MEDS: METOPROLOL SUCCINATE EXT REL 12.5 MG TABCR 37.5 MG PO (10:03)
[2025-03-30] MEDS: ESCITALOPRAM OXALATE 10 MG TABLET 20 MG PO (10:03)
[2025-03-30] MEDS: APIXABAN 5 MG TABLET PO (10:04)
[2025-03-30] MEDS: ISOSORBIDE MONONITRATE 60 MG TAB.ER.24H PO (10:04)
[2025-03-30] MEDS: PANTOPRAZOLE 40 MG TABLET PO (10:04)
[2025-03-30] MEDS: LIDOCAINE 5% PATCH 1 PATCH TRANSDERM (10:06)
--- NOTE | 2025-03-30 10:31 | PM.DS ---
DS: Admitting Diagnosis Discharge Date 03/30/2025 Admitting Diagnosis FALL DS: Discharge Diagnosis Discharge Diagnosis (1) Depression: Code(s): F32.9 - Major depressive disorder, single episode, unspecified Status: Acute (2) Anxiety and depression: Code(s): F41.9 - Anxiety disorder, unspecified; F32.9 - Major depressive disorder, single episode, unspecified Status: Acute (3) Hypertension: Code(s): I10 - Essential (primary) hypertension Status: Chronic (4) Hypertensive heart disease without congestive heart failure: Code(s): I11.9 - Hypertensive heart disease without heart failure Status: Acute (5) Coronary artery disease involving [place] coronary artery of [place] heart: Code(s): I25.10 - Atherosclerotic heart disease of [place] coronary artery without angina pectoris Status: Acute (6) Atrial fibrillation: Code(s): I48.91 - Unspecified atrial fibrillation Status: Acute (7) Hyperlipidemia: Code(s): E78.5 - Hyperlipidemia, unspecified Status: Acute (8) Diabetes: Code(s): E11.9 - Type 2 diabetes mellitus without complications Status: Acute (9) Gastroesophageal reflux disease: Code(s): K21.9 - Gastro-esophageal reflux disease without esophagitis Status: Acute (10) Ground-level fall: Code(s): W18.30XA - Fall on same level, unspecified, initial encounter Status: Acute (11) Acetabular fracture: Code(s): S32.409A - Unspecified fracture of unspecified acetabulum, initial encounter for closed fracture Status: Acute DS: Summary Hospital Course Hospital Course: 84 yo female presents for a fall with right wrist pain and right hip pain. Ortho was consulted. DR Dr. Latif, orthopedic surgery, recommended CT pelvis to further characterize fracture, no operative plan at this time. CT did show and additional r sacral alar fracture. TTP over the right greater trochanter. TTP over the right dorsal wrist. CT head and c spine negative. XR wrist showed a scapholunate dissociation. XR pelvis showed right superior and inferior rami fractures as well as a left pubic fracture. She was started on SS and lantus for diabetes (her home meds are held) she has a morphine pain pump that is functional. RN will be coming to check on it. careful with additional pain meds not to cause resp distress. PT/OT had been working with her. On elquis -continue neurovascular checks -care coordination following for rehab placement home meds reviewed and restarted as appropriate pt is full code -ortho consult completed. weight bearing as tolerated. f/u with DR Latif in 1 week after discharge. working with care coordination for rehab placement- [facility] accepted. hga1c 6.1 will continue with diabetic regimen on 03/28 she was placed on oxygen, chest xray was done that was unremarkable - so no antibiotics were started. She was encouraged to do IS, ambulation. Were able to wean her off oxygen on 03/29. She had BM this morning. Status at Discharge Functional status at discharge: uses cane/walker Overall status at discharge: patient is progressing back to baseline Time Spent with Patient Time attestation: Total time spent providing and/or coordinating discharge services: Time spent: Greater than 30 minutes Exam Narrative: pain pump to low left abd Const: General: comfortable Resp: Effort & Inspection: normal respiratory effort Cardio: Rate: regular rate Rhythm: regular rhythm GI: Auscultation: normal bowel sounds Skin: Other: scattered skin tears Extrem: Other: tender to palpation to the mid right humerus. Tenderness to palpation over the dorsum of the distal wrist. Neurovascularly intact distally. Tenderness palpation over the right greater trochanter. Leg is not internally rotated or shortened. Psych: Affect: normal affect DS: Data Data Completed and Pending Labs on day of discharge: Labs from last 24 hours 03/30/25 03/30/25 03/29/25 07:57 04:38 19:58 WBC 6.4 RBC 3.57 L Hgb 10.0 L Hct 31.2 L MCV 87.4 MCH 28.0 MCHC 32.1 RDW 14.2 Plt Count 191 MPV 9.3 Sodium 138 Potassium 3.6 Chloride 110 H Carbon Dioxide 22 Anion Gap 6 BUN 23 H Creatinine 0.95 Estim Creat Clear Calc 34 Estimated GFR 56 L Glucose 119 H POC Capillary Glucose 119 H 218 H Calcium 9.0 03/29/25 03/29/25 16:54 11:49 WBC RBC Hgb Hct MCV MCH MCHC RDW Plt Count MPV Sodium Potassium Chloride Carbon Dioxide Anion Gap BUN Creatinine Estim Creat Clear Calc Estimated GFR Glucose POC Capillary Glucose 149 H 129 H Calcium Preliminary micro results at discharge 03/25/25 20:22 - Preliminary Urine Clean Catch Gram negative bacilli isolated Discharge Plan Discharge Attending physician on discharge: Eren Troncoso Consulting providers: Kingsley Latif Discharging Clinician: Nia Souza Patient Disposition: [facility] Activity: may shower Diet: diabetic Patient Language: Hungarian Discharge Medications: New atorvastatin 40 mg Tablet 40 mg PO DAILY Qty: 90 0RF hydrocodone-acetaminophen 5-325 mg Tablet 1 tablet PO Q4-6H PRN (Reason: Pain Rated 4-6) Qty: 9 0RF Continued amlodipine-atorvastatin 10-40 mg tablet 1 tablet PO DAILY Qty: 90 3RF isosorbide mononitrate 60 mg tablet extended release 24 hr 60 mg PO DAILY Qty: 90 3RF (DME) FreeStyle Marcos 2 Sensor Kit See Rx Instructions .Route Qty: 2 5RF Rx Instructions: test qam and prn (DME) FreeStyle [place] 2 [place] Misc See Rx Instructions .Route Qty: 1 0RF Rx Instructions: test qam and fasting ondansetron HCl 4 mg tablet 4 mg PO Q8H PRN (Reason: nausea and vomiting) Qty: 21 0RF PreserVision AREDS-2 1 tab-cap PO DAILY acetaminophen 325 mg Tablet 650 mg PO Q6H PRN (Reason: pain) Qty: 60 0RF sennosides-docusate sodium [Senokot-S] 8.6-50 mg tablet 2 tablet PO BID PRN (Reason: constipation) Qty: 60 0RF Eliquis 5 mg tablet 5 mg PO BID Qty: 60 0RF lidocaine [Lidoderm] 5 % Adhesive Patch,Medicated 1 patch transdermal PRN gabapentin 300 mg capsule 300 mg PO HS (DME) pen needle, diabetic [Novofine 32] 32 gauge x 1/4 needle See Rx Instructions .ROUTE .MEDSUPPLY Qty: 200 3RF Rx Instructions: inject twice daily omeprazole 40 mg capsule,delayed release(DR/EC) 40 mg PO DAILY 30 Days Qty: 90 3RF escitalopram oxalate 20 mg tablet 20 mg PO DAILY Qty: 90 1RF Trulicity 1.5 mg/0.5 mL pen injector 1.5 mg subcut WEEKLY Qty: 2 2RF Rx Instructions: on Fridays morphine (PF) [Mitigo (PF)] 1 syr continuous intrathecal infusion DAILY polyethylene glycol 3350 17 gram/dose powder 17 g PO DAILY PRN (Reason: constipation) dapagliflozin propanediol [Farxiga] 5 mg Tablet 10 mg PO DAILY Qty: 30 0RF Home Medication 1 ea implant DIRECTED Qty: 0 0RF methocarbamol 500 mg tablet 500 mg PO TID PRN (Reason: muscle spasm) Qty: 30 0RF nitroglycerin 0.4 mg Tablet, Sublingual 0.4 mg sublingual PRN PRN (Reason: Chest Pain) Qty: 30 0RF Rx Instructions: Place 1 tablet (0.4mg) under the tongue every 5 minutes for chest pain with a max dose of 3 doses. hydrochlorothiazide 25 mg tablet 25 mg PO DAILY Qty: 30 0RF metoprolol succinate 25 mg tablet extended release 24 hr 37.5 mg PO DAILY Qty: 30 0RF metformin 500 mg tablet extended release 24 hr 500 mg PO QACBREAK Qty: 30 0RF glipizide 5 mg tablet 5 mg PO DAILY Qty: 30 2RF Rx Instructions: TAKE 1 TABLET DAILY levothyroxine 50 mcg capsule 50 mcg PO DAILY Qty: 30 0RF Date of admission: 03/25/25 21:06 Primary Care Provider: Tashi Christianson Admitting Provider: Nelsy Garces Attending physician on admission: Nelsy Garces Condition: Stable Quality VTE Prophylaxis VTE prophylaxis: mechanical ordered and pharmacologic ordered (on eliquis but holding it for now ) Hospitalist MIPS Heart Failure (Exclusion) Patient has history of Heart Transplant or Left Ventricular Assistive Device?: No IF YES, STOP HERE Heart Failure (Qualifier) Patient has current or prior documentation of LVEF less than or equal to 40%, or mod/servere depressed LVSF?: No IF NO, STOP HERE
[2025-03-30] MEDS: INSULIN ASPART (*BKC) 100 UNITS/ML SUB-Q (12:43)
[2025-03-30] MEDS: ACETAMINOPHEN 325 MG TABLET 650 MG PO (12:46)
== END 2025-03-30 17:30 | DRG 536 ==
LOC: ANHED 21:30 → ANH2MED 21:59
PROVIDERS: Admitting Provider Internal Medicine; Emergency Provider Student in an Organized Health Care Education/Training Program; PCP Family Medicine; Visit Provider Nurse Practitioner
DX: S32.591A Other specified fracture of right pubis, initial encounter for closed fracture (principal); S32.502A Unspecified fracture of left pubis, initial encounter for closed fracture; I25.10 Atherosclerotic heart disease of native coronary artery without angina pectoris; I48.0 Paroxysmal atrial fibrillation; I12.9 Hypertensive chronic kidney disease with stage 1 through stage 4 chronic kidney disease, or unspecified chronic kidney disease; N18.30 Chronic kidney disease, stage 3 unspecified; E11.22 Type 2 diabetes mellitus with diabetic chronic kidney disease; K58.9 Irritable bowel syndrome, unspecified; K21.9 Gastro-esophageal reflux disease without esophagitis; K59.03 Drug induced constipation; T40.2X5A Adverse effect of other opioids, initial encounter; E87.6 Hypokalemia; E03.9 Hypothyroidism, unspecified; E78.5 Hyperlipidemia, unspecified; K57.30 Diverticulosis of large intestine without perforation or abscess without bleeding; M19.90 Unspecified osteoarthritis, unspecified site; H35.30 Unspecified macular degeneration; H81.09 Meniere's disease, unspecified ear; G89.29 Other chronic pain; F41.9 Anxiety disorder, unspecified; F32.A Depression, unspecified; W18.30XA Fall on same level, unspecified, initial encounter; Z96.89 Presence of other specified functional implants; Z95.5 Presence of coronary angioplasty implant and graft; Z86.73 Personal history of transient ischemic attack (TIA), and cerebral infarction without residual deficits; Z79.01 Long term (current) use of anticoagulants; Z86.718 Personal history of other venous thrombosis and embolism; Z85.51 Personal history of malignant neoplasm of bladder; Z93.6 Other artificial openings of urinary tract status; Z87.891 Personal history of nicotine dependence
CPT/HCPCS: 36415; 70450; 71045; 72125; 72192; 73060; 73110; 73502; 73552; 80048; 80053; 81001; 82948; 83036; 85025; 85027; 87086; 90471; 90715; 93005; 96365; 96367; 96375; 96376; 97110; 97116; 97162; 97166; 97530; 97535; 99285; A9270; J0696; J1171; J1815; J2270; J3480; J7030